=== PATIENT | male | born 1995 | race African-American/Black ===

== ENCOUNTER 2024-01-21 11:46 | Emergency (ER) | payer MEDICAID, SELFPAY ==
[2024-01-21] VITALS (10 sets, daily range): BP systolic 76–136; BP diastolic 54–92; PULSE 70–106; RESP 16–20; TEMP 36.7–36.8; O2SAT 90–95; BMI 23.7
--- NOTE | 2024-01-21 11:44 | ECG_ITS ---
APPROVED REPORT Exam: Resting ECG HR:89 bpm ECG Measurements Heart Rate 89 AXES UT 153 P 67 QRSd 85 QRS 81 QT 365 T 60 QTc 412 Conclusion SINUS RHYTHM WITH SINUS ARRHYTHMIA NORMAL ECG UNCONFIRMED REPORT Electronically signed by : Duglas Treviño, 01/21/2024 14:58:23
--- NOTE | 2024-01-21 12:12 | XR_ITS ---
PROCEDURE INFORMATION: Exam: XR Chest Exam date and time: 01/21/2024 12:25 PM Age: 28 years old Clinical indication: Pain; Chest pressure; Additional info: Chest pain TECHNIQUE: Imaging protocol: Radiologic exam of the chest. Views: 2 views. COMPARISON: No relevant prior studies available. FINDINGS: Lungs: Asymmetric prominence of the right hilum. No focal consolidation. Pleural spaces: Unremarkable. No pleural effusion. No pneumothorax. Heart/Mediastinum: Unremarkable. No cardiomegaly. Bones/joints: Unremarkable. IMPRESSION: Asymmetric prominence of the right hilum. Additional workup recommended with enhanced CT.
[2024-01-21 12:24] LABS: Basophils # 0.2 K/mm3 (0-0.2); Basophils % 1.4 % (0.1-2.0); Eosinophils # 0.4 K/mm3 (0.0-0.4); Eosinophils % 2.8 % (0.1-12.0); Hemoglobin 7.7 g/dL (14.1-18.0); Lymphocytes # 5.2 K/mm3 (0.7-4.5); Lymphocytes % 37.2 % (10-50); Mean Corpuscular HGB Conc 36.7 g/dL (31.8-35.4); Mean Corpuscular Hemoglobin 30.8 pg (27.0-31.2); Mean Corpuscular Volume 83.8 fl (80-94); Mean Platelet Volume 7.7 fl (7.4-10.4); Monocytes % 7.1 % (1.7-9.3); Neutrophils # 7.2 K/mm3 (1.8-7.8); Neutrophils % 51.5 % (37.0-80.0); Platelet Count 317 K/mm3 (142-424); Red Blood Count 2.51 M/mm3 (4.60-6.20); Red Cell Distribution Width 24.1 % (11.5-17.5)
[2024-01-21] MEDS: diphenhydrAMINE 50MG/ML VIAL 50 MG IV (12:26)
[2024-01-21] MEDS: HYDROMORPHONE 2MG/ML SYRINGE 1 MG IV ×3 (12:27→15:15)
[2024-01-21 12:28] LABS: Alanine Aminotransferase 46 U/L (12-78); Albumin Level 4.6 g/dl (3.5-5.0); Albumin/Globulin Ratio 0.9 (1.1-1.8); Alkaline Phosphatase 97 U/L (38-126); Anion Gap 12.4 mEq/L (5-15); Aspartate Amino Transferase 168 U/L (17-59); Bilirubin,Total 4.9 mg/dl (0.2-1.3); Blood Urea Nitrogen 11 mg/dl (9-20); Calcium 8.5 mg/dl (8.4-10.2); Carbon Dioxide 26 mmol/L (22.0-30.0); Chloride 108 mmol/L (98-107); Creatinine Clearance Estimated 170 mL/min (50-200); Estimated Glomerular Filt Rate 133 ml/min (>60); GFR (African American) 161 ML/MIN (>60); Globulin 5.2 g/dL (1.3-3.2); Glucose 100 mg/dl (74-100); Potassium 4.4 mmoL/L (3.5-5.1); Sodium 142 mmol/L (136-145); Total Protein,Serum 9.8 g/dl (6.3-8.2)
[2024-01-21 12:29] LABS: INR 1.02 (0.9-1.1); Prothrombin Time 11.4 seconds (10.1-12.5)
--- NOTE | 2024-01-21 12:30 | PC.NURSE ---
CRITICAL HCT 21.0, RECEIVED FROM [facility] IN LAB.PT NAME AND R/V. DR COWAN NOTIFIED
[2024-01-21 12:34] LABS: Lactate Dehydrogenase 1666 U/L (313-618)
--- NOTE | 2024-01-21 12:34 | PC.NURSE ---
PT TO XR
--- NOTE | 2024-01-21 12:41 | PC.NURSE ---
PT RETURNED FROM XR
[2024-01-21 13:06] LABS: HIV (1&2) Antibody Rapid NONREACTIVE (NONREACTIVE)
[2024-01-21 13:13] LABS: Troponin I 0.04 ng/ml (0.00-0.034)
--- NOTE | 2024-01-21 13:19 | HMH.EDGENADL ---
Discharge Plan Disposition Chief Complaint: Chest Pain Referrals Follow up/Referrals: Provider,Referral, [Primary Care Provider] - See instructions Clinical Impressions Clinical Impression: Chest pain Print Language Print Language: Malaysian Discharge ED Provider: Duglas Treviño General Adult HPI General Chief complaint: Chest Pain Stated complaint: Chest pain Time Seen by Provider: 01/21/24 12:16 Mode of Arrival: Ambulatory Source of Information: Patient Limitations: No Limitations Description of Symptoms (Recalled from ER Triage Doc. by RN): Patient reports history of sickle cell and that he thinks he is in a flare up. States he usually gets blood infusions and he hasn't had one in a while. Complaint of chest and back pain. History of Present Illness HPI narrative: This is a 28-year-old male with a past medical history of sickle cell disease who presents with chest pain. States that he just recently moved to the area at the beginning of this month and has not established with a PCP yet. States that he would typically get transfusions every 4 weeks, however his last blood transfusion was in October. Has been taking hydroxyurea, deferoxamine, and Eliquis as prescribed. States that he began to have chest pain last night with associated nausea and vomiting and dizziness. Denies shortness of breath. Denies fever. Related Data Allergies Allergy/AdvReac Type Severity Reaction Status Date / Time morphine Allergy Unknown Verified 01/21/24 12:04 allergy reaction [facility] Disclaimer: The information contained in this section may have been updated after the patient was seen, as this information can be updated by other users. Social History Smoking Status: Current every day smoker alcohol intake: former current occupational status: other Travel in the last 8 weeks: None ROS Obtained: Yes All systems reviewed & no additional complaints except as documented Physical Exam General General appearance: alert Comment: Appears uncomfortable Eye Eye exam: Present normal appearance, PERRL and EOMI Respiratory Respiratory exam: Present normal lung sounds bilaterally; Absent respiratory distress Cardiovascular Cardiovascular exam: Present regular rate and normal rhythm Abdominal Exam Abdominal exam: Present soft and distention; Absent tenderness, guarding or rebound Extremities Exam Extremities exam: Present normal inspection Neurological Exam Neurological exam: Present alert and oriented X3 Skin Skin exam: Present warm and dry Medical Decision Making Medical Records Medical records reviewed: Yes I reviewed the patient's medical records. Screening: Per USPSTF and CDC recommendations, given the prevalence of disease in our region, it is our hospital?s policy to screen for HIV and viral Hepatitis for all patients aged 18 and over and those with ongoing risk factors. Mir Inquiry Pt receiving controlled substance: No Vital Signs: 01/21/24 12:05 01/21/24 12:15 01/21/24 12:31 Temperature 98.0 F Temperature Source Oral Pulse Rate 82 81 Pulse Rate [Radial] 85 Respiratory Rate 16 18 Blood Pressure 123/85 100/67 L Blood Pressure [Right Arm] 123/85 Blood Pressure Mean 78 Blood Pressure Mean [Right Arm] 97 Blood Pressure Source [Right Arm] Automatic Cuff Blood Pressure Position [Right Arm] Sitting 02 Sat by Pulse Oximetry 95 91 L 90 L Oxygen Delivery Method Room Air Room Air Oxygen Flow Rate (LPM) 01/21/24 13:01 01/21/24 13:15 Temperature Temperature Source Pulse Rate 84 70 Pulse Rate [Radial] Respiratory Rate 18 Blood Pressure 89/68 L 89/68 L Blood Pressure [Right Arm] Blood Pressure Mean 73 Blood Pressure Mean [Right Arm] Blood Pressure Source [Right Arm] Blood Pressure Position [Right Arm] 02 Sat by Pulse Oximetry 92 L 92 L Oxygen Delivery Method Nasal Cannula Oxygen Flow Rate (LPM) 2 Lab Data Lab Results 01/21/24 11:49: WBC 14.0 H, RBC 2.51 L, Hgb 7.7 L, Hct 21.0 L, MCV 83.8, MCH 30.8, MCHC 36.7 H, RDW 24.1 H, Plt Count 317, MPV 7.7, Neut % (Auto) 51.5, Lymph % (Auto) 37.2, Bledsoe % (Auto) 7.1, Eos % (Auto) 2.8, Baso % (Auto) 1.4, Neut # (Auto) 7.2, Lymph # (Auto) 5.2 H, Bledsoe # (Auto) 1.0, Eos # (Auto) 0.4, Baso # (Auto) 0.2, PT 11.4, INR 1.02, Sodium 142, Potassium 4.4, Chloride 108 H, Carbon Dioxide 26, Anion Gap 12.4, BUN 11, Creatinine 0.70, Estimated Creat Clear 170, Estimated GFR 133, Est GFR ( Amer) 161, Glucose 100, Calcium 8.5, Total Bilirubin 4.9 H, AST 168 H, ALT 46, Alkaline Phosphatase 97, Lactate Dehydrogenase 1666 H, Troponin I 0.04 H, Total Protein 9.8 H, Albumin 4.6, Globulin 5.2 H, Albumin/Globulin Ratio 0.9 L, HIV 1&2 Antibody Rapid Nonreactive 01/21/24 12:23: Blood Type O Positive, Antibody Screen Negative 01/21/24 11:49 01/21/24 11:49 Orders (Tests/Meds): ED MEDICATIONS Generic Name Dose Route Start Last Admin Trade Name Freq PRN Reason Stop Dose Admin Lactated Ringer's 1,000 mls @ 999 mls/hr 01/21/24 14:38 Lactated Ringer's 1000 Ml Bag IV 01/21/24 15:38 .[id number] ONE Discontinued Medications Generic Name Dose Route Start Last Admin Trade Name Freq PRN Reason Stop Dose Admin Diphenhydramine HCl 50 mg 01/21/24 12:12 01/21/24 12:26 Diphenhydramine 50mg/Ml Vial IV 01/21/24 12:13 50 mg ONCE ONE Administration Diphenhydramine HCl 25 mg 01/21/24 13:56 01/21/24 14:07 Diphenhydramine 50mg/Ml Vial IV 01/21/24 13:57 25 mg ONCE ONE Administration Hydromorphone HCl 1 mg 01/21/24 12:12 01/21/24 12:27 Hydromorphone 2mg/Ml Syringe IV 01/21/24 12:13 1 mg ONCE ONE Administration Hydromorphone HCl 1 mg 01/21/24 13:56 01/21/24 14:07 Hydromorphone 2mg/Ml Syringe IV 01/21/24 13:57 1 mg ONCE ONE Administration ORDERS Category Date Time Status Type and Screen Stat BBK 01/21/24 12:23 Completed XR chest 2V Stat Exams 01/21/24 12:12 Completed Complete Blood Count Auto Diff Stat Lab 01/21/24 11:49 Completed Comprehensive Metabolic Panel Stat Lab 01/21/24 11:49 Completed HIV (1&2) Antibody Rapid Stat Lab 01/21/24 11:49 Completed Haptoglobin Stat Lab 01/21/24 12:29 Received Hep C Ab with Reflex to RNA Stat Lab 01/21/24 11:49 Received Lactate Dehydrogenase Stat Lab 01/21/24 11:49 Completed Prothrombin Time INR Stat Lab 01/21/24 11:49 Completed Troponin I Q3H Lab 01/21/24 16:00 Ordered Troponin I Q3H Lab 01/21/24 19:00 Ordered Troponin I Stat Lab 01/21/24 11:49 Completed ECG Data Tracing #1: I reviewed this ECG and interpreted as documented below: Sinus rhythm at a rate of 89 with sinus arrhythmia, normal axis, QTc 412, no STEMI Medical Decision Narrative: In summary, this 28-year-old male with a past medical history of sickle cell disease presents to the emergency department today with chest pain. On initial evaluation patient is normotensive, nontachycardic, afebrile, satting 95% on room air. Differential diagnosis includes but is not limited to acute chest syndrome, pneumonia, sickle cell pain crisis, ACS. Based on these concerns, I ordered CBC, CMP, LDH, haptoglobin, type and screen, troponin, chest x-ray. ECG personally interpreted as noted above. Patient received Dilaudid and Benadryl for treatment. Labs personally reviewed demonstrate leukocytosis with a white blood cell count of 14, anemia with a hemoglobin of 7.7, INR of 1.02, total bilirubin of 4.9, AST 168, LDH of 1666, mildly elevated troponin at 0.04,. XR personally interpreted demonstrates no acute cardiopulmonary pathology. On reassessment patient remains in a significant amount of pain. Administered 1 L of lactated Ringer's, Dilaudid, and Benadryl again. Discussed with hospitalist regarding admission, however given his elevated troponin and concern for potential thrombotic event, recommended transfer to a center with hematologists and the capabilities for exchange transfusions. Discussed with and patient was ultimately accepted as a transfer to [facility] under Dr. Greer. At the time of transfer, patient normotensive, satting 92% on 2 L nasal cannula. Critical Care Critical Care Time Critical Care Time: No
--- NOTE | 2024-01-21 13:59 | PC.NURSE ---
DR COWAN SPEAKING WITH HOSPITALIST FOR ADMISSION
[2024-01-21] MEDS: diphenhydrAMINE 50MG/ML VIAL 25 MG IV (14:07)
--- NOTE | 2024-01-21 14:07 | PC.NURSE ---
Called per Dr. Treviño for a poss transfer, stated that they would give us a call back.
--- NOTE | 2024-01-21 14:08 | PC.NURSE ---
Called [facility] to [employer] [facility] [employer].
--- NOTE | 2024-01-21 14:33 | PC.NURSE ---
DR COWAN SPEAKING WITH [facility]
--- NOTE | 2024-01-21 14:41 | PC.NURSE ---
dr newman at bedside to update pt on poc
[2024-01-21] MEDS: LACTATED RINGERS 1000ML 1,000 ML 999 ML IV (15:17)
[2024-01-21 15:31] LABS: Troponin I 0.04 ng/ml (0.00-0.034)
--- NOTE | 2024-01-21 15:54 | PC.NURSE ---
called report to jemima coughlin rn and called [facility] em[facility] for transfer
[2024-01-23 13:25] LABS: Haptoglobin <10 mg/dL (17-317)
[2024-01-25 23:08] LABS: HCV Ab Reactive (Non Reactive)
== END 2024-01-21 16:29 | disposition short-term general hospital (02) ==
PROVIDERS: Emergency Provider Student in an Organized Health Care Education/Training Program
DX: R07.9 Chest pain, unspecified (principal); M54.9 Dorsalgia, unspecified; R11.2 Nausea with vomiting, unspecified; R42 Dizziness and giddiness
CPT/HCPCS: 71046; 80053; 83010; 83615; 84484; 85025; 85610; 86803; 86850; 87389; 93005; 96361; 96374; 96375; 99284; J1171; J1200; J7120

== ENCOUNTER 2024-04-25 13:30 | Emergency (ER) | payer OTHER, SELFPAY ==
[2024-04-25] VITALS (12 sets, daily range): BP systolic 93–128; BP diastolic 53–88; PULSE 77–114; RESP 18–20; TEMP 37.1–37.3; O2SAT 97–100; BMI 23.0
--- NOTE | 2024-04-25 13:29 | ED_ITS ---
<Statement entered by La Nena Driscoll DO - 04/25/24 15:56> I was consulted by the [facility], and we discussed the complexity of the problems being addressed. I approved the treatment and management plan for this patient's care in the emergency department, thus performing a substantive portion of the medical decision making. Care signed out to oncoming provider Dr. Larson at my departure. La Nena Driscoll DO Discharge Plan Disposition Patient Disposition: Xfer Short-Term Hosp Condition: Serious Prescriptions Prescriptions: No Action hydroxyurea 500 mg capsule 500 mg PO DAILY amlodipine 10 mg tablet 10 mg PO DAILY pantoprazole 40 mg tablet,delayed release (DR/EC) 40 mg PO DAILY oxycodone 20 mg tablet 30 mg PO QID Eliquis 5 mg tablet 5 mg PO DAILY Referrals Follow up/Referrals: Provider,Referral, MD [Primary Care Provider] - See instructions Clinical Impressions Clinical Impression: Sepsis without septic shock, Abscess of epididymis or testis Stand Alone Forms Stand Alone Forms: Transfer Record - ED Print Language Print Language: Fijian Discharge ED Provider: La Nena Driscoll General Adult HPI <JAMAL Fragoso - Last Filed: 04/25/24 16:06> General Chief complaint: PAIN Stated complaint: Pain; Sickle Cell Disease Time Seen by Provider: 04/25/24 13:28 History of Present Illness HPI narrative: Patient presents for evaluation of right testicular pain. Patient has a longstanding history of sickle cell disease and actually just got out of the hospital with [facility] approximately 7 days ago. He began having right testicular pain since Tuesday. He thought it was part of his sickle cell crisis but it is continued to progress and his not responding to his normal home sickle regimen. He called his sickle cell support operator at the [facility] and they told him to return to . However EMS was unable to take him directly there due to ambulance availability and so he arrived here instead. Patient denies any fever chills chest pain shortness of breath hemoptysis hematochezia melena. He has never had testicular pain before. Related Data Home Medications ?Medication ?Instructions ?Recorded ?Confirmed amlodipine 10 mg tablet 10 mg PO DAILY 04/25/24 04/25/24 apixaban 5 mg tablet (Eliquis) 5 mg PO DAILY 04/25/24 04/25/24 hydroxyurea 500 mg capsule 500 mg PO DAILY 04/25/24 04/25/24 oxycodone 20 mg tablet 30 mg PO QID 04/25/24 04/25/24 pantoprazole 40 mg tablet,delayed 40 mg PO DAILY 04/25/24 04/25/24 release Allergies Allergy/AdvReac Type Severity Reaction Status Date / Time morphine Allergy Unknown Verified 01/21/24 12:04 allergy reaction PFSH <JAMAL Fragoso - Last Filed: 04/25/24 16:06> [facility] Disclaimer: The information contained in this section may have been updated after the patient was seen, as this information can be updated by other users. Social History (Updated 01/21/24 @ 14:44 by Duglas Treviño MD) Smoking Status: Current every day smoker alcohol intake: former current occupational status: other Travel in the last 8 weeks: None <JAMAL Fragoso - Last Filed: 04/25/24 16:06> ROS Obtained: Yes Systems reviewed as appropriate & no additional complaints except as documented Physical Exam <JAMAL Fragoso - Last Filed: 04/25/24 16:06> General General appearance: alert and in no apparent distress Respiratory Respiratory exam: Present normal lung sounds bilaterally Cardiovascular Cardiovascular exam: Present regular rate Neurological Exam Neurological exam: Present alert and oriented X3 Medical Decision Making <JAMAL Fragoso - Last Filed: 04/25/24 16:06> Medical Records Medical records reviewed: Yes I reviewed the patient's medical records. Screening: Per USPSTF and CDC recommendations, given the prevalence of disease in our region, it is our hospital?s policy to screen for HIV and viral Hepatitis for all patients aged 18 and over and those with ongoing risk factors. Mir Inquiry Pt receiving controlled substance: No Vital Signs: 04/25/24 13:27 04/25/24 13:52 04/25/24 14:00 Temperature Temperature Source Pulse Rate 91 H 87 Pulse Rate [Radial] 114 H Respiratory Rate 20 Blood Pressure 117/79 117/70 Blood Pressure [Right Arm] 126/88 Blood Pressure Mean 88 87 Blood Pressure Mean [Right Arm] 100 Blood Pressure Source [Right Arm] Automatic Cuff Blood Pressure Position [Right Arm] Supine 02 Sat by Pulse Oximetry 98 100 100 Oxygen Delivery Method Room Air Room Air Room Air 04/25/24 14:21 04/25/24 15:55 04/25/24 16:01 Temperature 98.7 F Temperature Source Oral Pulse Rate 92 H 84 Pulse Rate [Radial] Respiratory Rate Blood Pressure 128/79 96/59 L Blood Pressure [Right Arm] Blood Pressure Mean 83 Blood Pressure Mean [Right Arm] Blood Pressure Source [Right Arm] Blood Pressure Position [Right Arm] 02 Sat by Pulse Oximetry 100 97 Oxygen Delivery Method Room Air Room Air 04/25/24 16:30 04/25/24 17:00 04/25/24 18:00 Temperature Temperature Source Pulse Rate 81 81 81 Pulse Rate [Radial] Respiratory Rate Blood Pressure 100/65 L 96/61 L 93/53 L Blood Pressure [Right Arm] Blood Pressure Mean Blood Pressure Mean [Right Arm] Blood Pressure Source [Right Arm] Blood Pressure Position [Right Arm] 02 Sat by Pulse Oximetry 100 99 100 Oxygen Delivery Method Room Air Room Air Room Air 04/25/24 18:30 Temperature Temperature Source Pulse Rate 82 Pulse Rate [Radial] Respiratory Rate Blood Pressure 112/71 Blood Pressure [Right Arm] Blood Pressure Mean Blood Pressure Mean [Right Arm] Blood Pressure Source [Right Arm] Blood Pressure Position [Right Arm] 02 Sat by Pulse Oximetry 99 Oxygen Delivery Method Room Air Lab Data Lab results reviewed: Yes I reviewed the patient's lab results. Lab Results 04/25/24 13:34: WBC 25.7 H*, RBC 3.15 L, Hgb 9.4 L, Hct 28.6 L, MCV 90.8, MCH 29.8, MCHC 32.9, RDW 17.2, Plt Count 732 H, MPV 9.0, Neut % (Auto) 80.9 H, Lymph % (Auto) 10.1, Leon % (Auto) 7.4, Eos % (Auto) 0.6, Baso % (Auto) 0.5, Neut # (Auto) 20.8 H, Lymph # (Auto) 2.6, Leon # (Auto) 1.9 H, Eos # (Auto) 0.2, Baso # (Auto) 0.1, Total Counted 100, Neutrophils % (Manual) 84 H, Lymphocytes % (Manual) 8 L, Monocytes % (Manual) 8, Platelet Estimate Marked increase, RBC Morphology Normal, ESR 60 H, Retic Count (auto) 3.1, PT 10.9, INR 0.99, D-Dimer 1.02 H, Sodium 138, Potassium 4.6, Chloride 103, Carbon Dioxide 26, Anion Gap 13.6, BUN 14, Creatinine 0.70, Estimated Creat Clear 170, Estimated GFR 133, Est GFR ( Amer) 161, Glucose 107 H, Calcium 9.0, Magnesium 1.8, Total Bilirubin 2.0 H, AST 79 H, ALT 42, Alkaline Phosphatase 127 H, Lactate Dehydrogenase 586, Troponin I 0.03, C-Reactive Protein 71.8 H, Total Protein 10.6 H, Albumin 4.5, Globulin 6.1 H, Albumin/Globulin Ratio 0.7 L 04/25/24 13:53: Blood Type O Positive, Antibody Screen Negative 04/25/24 13:34 04/25/24 13:34 Orders (Tests/Meds): ED MEDICATIONS Generic Name Dose Route Start Last Admin Trade Name Freq PRN Reason Stop Dose Admin Piperacillin Sod/Tazobactam 50 mls @ 100 mls/hr 04/25/24 14:30 04/25/24 14:43 Sod 3.375 gm/ Sodium Chloride IV 05/05/24 14:29 100 mls/hr Q6H TORRES Administration Discontinued Medications Generic Name Dose Route Start Last Admin Trade Name Freq PRN Reason Stop Dose Admin Acetaminophen 1,000 mg 04/25/24 13:35 04/25/24 13:47 Acetaminophen 1,000mg/100ml Vial IV 04/25/24 13:36 1,000 mg ONCE ONE Administration Azithromycin 500 mg 04/25/24 16:01 04/25/24 16:02 Azithromycin 250mg Tablet PO 04/25/24 16:02 500 mg ONCE ONE Administration Diphenhydramine HCl 50 mg 04/25/24 13:46 04/25/24 13:48 Diphenhydramine 50mg/Ml Vial IV 04/25/24 13:47 50 mg ONCE ONE Administration Diphenhydramine HCl 25 mg 04/25/24 15:54 04/25/24 15:58 Diphenhydramine 50mg/Ml Vial IV 04/25/24 15:55 25 mg ONCE ONE Administration Hydromorphone HCl 2 mg 04/25/24 13:35 04/25/24 13:48 Hydromorphone 2mg/Ml Syringe IV 04/25/24 13:36 2 mg ONCE ONE Administration Hydromorphone HCl 1 mg 04/25/24 14:23 04/25/24 14:32 Hydromorphone 2mg/Ml Syringe IV 04/25/24 14:24 1 mg ONCE ONE Administration Hydromorphone HCl 1 mg 04/25/24 15:09 04/25/24 15:16 Hydromorphone 2mg/Ml Syringe IV 04/25/24 15:10 1 mg ONCE ONE Administration Hydromorphone HCl 2 mg 04/25/24 16:18 04/25/24 16:31 Hydromorphone 2mg/Ml Syringe IV 04/25/24 16:19 2 mg ONCE ONE Administration Hydromorphone HCl 1 mg 04/25/24 18:22 04/25/24 18:31 Hydromorphone 2mg/Ml Syringe IV 04/25/24 18:23 1 mg ONCE ONE Administration Vancomycin/PEG/NADA/Lysine/Water 1.5 gm in 300 mls @ 150 mls/hr 04/25/24 14:30 04/25/24 16:02 Vancomycin 1.5gm/300ml (Peg) Premix IV 04/25/24 16:29 150 mls/hr ONCE ONE Administration Azithromycin 500 mg/ Sodium 250 mls @ 250 mls/hr 04/25/24 15:45 04/25/24 16:09 Chloride IV 04/25/24 15:46 Not Given ONCE ONE Miscellaneous 1 each 04/25/24 14:30 Vancomycin Consult Request NOTAPPLIC 05/25/24 14:29 [facility] Ondansetron HCl 4 mg 04/25/24 13:42 04/25/24 13:47 Ondansetron 4mg/2ml Vial IV 04/25/24 13:43 4 mg ONCE ONE Administration ORDERS Category Date Time Status Type and Screen Stat BBK 04/25/24 13:53 Completed CXR --portable [XR chest portable] Stat Exams 04/25/24 13:42 Completed CBC w/Auto Diff [Complete Blood Count Auto Diff] Stat Lab 04/25/24 13:34 Completed CMP [Comprehensive Metabolic Panel] Stat Lab 04/25/24 13:34 Completed CRP [C-Reactive Protein] Stat Lab 04/25/24 13:34 Completed D-Dimer Stat Lab 04/25/24 13:34 Completed ESR [Erythrocyte Sedimentation Rate] Stat Lab 04/25/24 13:34 Completed INR [Prothrombin Time INR] Stat Lab 04/25/24 13:34 Completed LDH [Lactate Dehydrogenase] Stat Lab 04/25/24 13:34 Completed Magnesium Stat Lab 04/25/24 13:34 Results Procalcitonin Stat Lab 04/25/24 13:34 Results Reticulocyte % (Auto) Stat Lab 04/25/24 13:34 Completed Trop I [Troponin I] Stat Lab 04/25/24 13:34 Completed Troponin I Q3H Lab 04/25/24 19:45 Ordered UA [Urinalysis and Microscopic] Stat Lab 04/25/24 13:40 Ordered Urine Chlam/Gono/Trich, PREMA Stat Lab 04/25/24 13:40 Ordered Blood Culture Stat Micro 04/25/24 14:20 Received Urine Culture Stat Micro 04/25/24 13:43 Ordered scrotum US [US Testicular] Stat Ultrasound 04/25/24 13:41 Completed Tissue Perfus/Sepsis Re-Eval Sepsis Re-Evaluation Performed: Yes Date Performed: 04/25/24 Time Performed: 16:06 Medical Decision Narrative: In summary patient is a 28-year-old male who presents to the emergency department for evaluation of right testicle pain. Patient is normotensive at 126/88 tachycardic at 114 breathing 20 times a minute satting at 98% on room air currently upon arrival, the temperature of 98.7. Physical exam is remarkable for exquisite right testicular pain and an enlarged testicular complex however there is no scrotal edema or induration. The testicle was not fixed and I do not feel any palpable fluctuance. The remainder of the exam is unremarkable nonfocal including clear breath sounds patient's [place] Coma Score 15 sinus tachycardia the bedside monitor. Differential diagnosis includes sickle cell crisis with vasospasm versus testicular torsion versus testicular abscess etc. Initial workup will be conducted with hematologic labs plain film chest x-ray blood cultures urinalysis testicular ultrasound. Initial interventions include Toradol Tylenol Dilaudid. Patient is on oxycodone 34 times a day at baseline. Crystalloid bolus was considered however patient currently is hemodynamically stable and at the risk of volume overload deferred for now. Initial workup reviewed by me and my informal interpretation of his imaging shows normal size testicles however significant epididymitis orchitis on the right however there is blood flow to the testicle. Laboratory investigation showed that his white count is 25.7 with an absolute neutrophil count of 20.8 reticulocyte count of 3.1 a troponin of 0.03 CRP of 71.8. Reassessment 1425 and patient's pain is come down from a 10 out of 10 to 8 out of 10 and he remains hemodynamically stable and afebrile. Given the findings I had an interactive discussion with the [facility] transfer center Dr. Tran regarding patient NGUYEN findings and patient management and he involved Dr. Andrea of urology as well and decision is made to transfer the patient to [facility] emergency department for further evaluation and care. Patient received a dose of Vanco Zosyn and azithromycin empirically blood cultures were sent patient has received a total of of 4 mg total of Dilaudid as well as 75 mg total of Benadryl prior to transfer <Diomedes Larson MD - Last Filed: 04/25/24 18:44> Vital Signs: 04/25/24 13:27 04/25/24 13:52 04/25/24 14:00 Temperature Temperature Source Pulse Rate 91 H 87 Pulse Rate [Radial] 114 H Respiratory Rate 20 Blood Pressure 117/79 117/70 Blood Pressure [Right Arm] 126/88 Blood Pressure Mean 88 87 Blood Pressure Mean [Right Arm] 100 Blood Pressure Source [Right Arm] Automatic Cuff Blood Pressure Position [Right Arm] Supine 02 Sat by Pulse Oximetry 98 100 100 Oxygen Delivery Method Room Air Room Air Room Air 04/25/24 14:21 04/25/24 15:55 04/25/24 16:01 Temperature 98.7 F Temperature Source Oral Pulse Rate 92 H 84 Pulse Rate [Radial] Respiratory Rate Blood Pressure 128/79 96/59 L Blood Pressure [Right Arm] Blood Pressure Mean 83 Blood Pressure Mean [Right Arm] Blood Pressure Source [Right Arm] Blood Pressure Position [Right Arm] 02 Sat by Pulse Oximetry 100 97 Oxygen Delivery Method Room Air Room Air 04/25/24 16:30 04/25/24 17:00 04/25/24 18:00 Temperature Temperature Source Pulse Rate 81 81 81 Pulse Rate [Radial] Respiratory Rate Blood Pressure 100/65 L 96/61 L 93/53 L Blood Pressure [Right Arm] Blood Pressure Mean Blood Pressure Mean [Right Arm] Blood Pressure Source [Right Arm] Blood Pressure Position [Right Arm] 02 Sat by Pulse Oximetry 100 99 100 Oxygen Delivery Method Room Air Room Air Room Air 04/25/24 18:30 Temperature Temperature Source Pulse Rate 82 Pulse Rate [Radial] Respiratory Rate Blood Pressure 112/71 Blood Pressure [Right Arm] Blood Pressure Mean Blood Pressure Mean [Right Arm] Blood Pressure Source [Right Arm] Blood Pressure Position [Right Arm] 02 Sat by Pulse Oximetry 99 Oxygen Delivery Method Room Air Lab Data Lab Results 04/25/24 13:34: WBC 25.7 H*, RBC 3.15 L, Hgb 9.4 L, Hct 28.6 L, MCV 90.8, MCH 29.8, MCHC 32.9, RDW 17.2, Plt Count 732 H, MPV 9.0, Neut % (Auto) 80.9 H, Lymph % (Auto) 10.1, Leon % (Auto) 7.4, Eos % (Auto) 0.6, Baso % (Auto) 0.5, Neut # (Auto) 20.8 H, Lymph # (Auto) 2.6, Leon # (Auto) 1.9 H, Eos # (Auto) 0.2, Baso # (Auto) 0.1, Total Counted 100, Neutrophils % (Manual) 84 H, Lymphocytes % (Manual) 8 L, Monocytes % (Manual) 8, Platelet Estimate Marked increase, RBC Morphology Normal, ESR 60 H, Retic Count (auto) 3.1, PT 10.9, INR 0.99, D-Dimer 1.02 H, Sodium 138, Potassium 4.6, Chloride 103, Carbon Dioxide 26, Anion Gap 13.6, BUN 14, Creatinine 0.70, Estimated Creat Clear 170, Estimated GFR 133, Est GFR ( Amer) 161, Glucose 107 H, Calcium 9.0, Magnesium 1.8, Total Bilirubin 2.0 H, AST 79 H, ALT 42, Alkaline Phosphatase 127 H, Lactate Dehydrogenase 586, Troponin I 0.03, C-Reactive Protein 71.8 H, Total Protein 10.6 H, Albumin 4.5, Globulin 6.1 H, Albumin/Globulin Ratio 0.7 L 04/25/24 13:53: Blood Type O Positive, Antibody Screen Negative Orders (Tests/Meds): ED MEDICATIONS Generic Name Dose Route Start Last Admin Trade Name Freq PRN Reason Stop Dose Admin Piperacillin Sod/Tazobactam 50 mls @ 100 mls/hr 04/25/24 14:30 04/25/24 14:43 Sod 3.375 gm/ Sodium Chloride IV 05/05/24 14:29 100 mls/hr Q6H TORRES Administration Discontinued Medications Generic Name Dose Route Start Last Admin Trade Name Yvonne PRN Reason Stop Dose Admin Acetaminophen 1,000 mg 04/25/24 13:35 04/25/24 13:47 Acetaminophen 1,000mg/100ml Vial IV 04/25/24 13:36 1,000 mg ONCE ONE Administration Azithromycin 500 mg 04/25/24 16:01 04/25/24 16:02 Azithromycin 250mg Tablet PO 04/25/24 16:02 500 mg ONCE ONE Administration Diphenhydramine HCl 50 mg 04/25/24 13:46 04/25/24 13:48 Diphenhydramine 50mg/Ml Vial IV 04/25/24 13:47 50 mg ONCE ONE Administration Diphenhydramine HCl 25 mg 04/25/24 15:54 04/25/24 15:58 Diphenhydramine 50mg/Ml Vial IV 04/25/24 15:55 25 mg ONCE ONE Administration Hydromorphone HCl 2 mg 04/25/24 13:35 04/25/24 13:48 Hydromorphone 2mg/Ml Syringe IV 04/25/24 13:36 2 mg ONCE ONE Administration Hydromorphone HCl 1 mg 04/25/24 14:23 04/25/24 14:32 Hydromorphone 2mg/Ml Syringe IV 04/25/24 14:24 1 mg ONCE ONE Administration Hydromorphone HCl 1 mg 04/25/24 15:09 04/25/24 15:16 Hydromorphone 2mg/Ml Syringe IV 04/25/24 15:10 1 mg ONCE ONE Administration Hydromorphone HCl 2 mg 04/25/24 16:18 04/25/24 16:31 Hydromorphone 2mg/Ml Syringe IV 04/25/24 16:19 2 mg ONCE ONE Administration Hydromorphone HCl 1 mg 04/25/24 18:22 04/25/24 18:31 Hydromorphone 2mg/Ml Syringe IV 04/25/24 18:23 1 mg ONCE ONE Administration Vancomycin/PEG/NADA/Lysine/Water 1.5 gm in 300 mls @ 150 mls/hr 04/25/24 14:30 04/25/24 16:02 Vancomycin 1.5gm/300ml (Peg) Premix IV 04/25/24 16:29 150 mls/hr ONCE ONE Administration Azithromycin 500 mg/ Sodium 250 mls @ 250 mls/hr 04/25/24 15:45 04/25/24 16:09 Chloride IV 04/25/24 15:46 Not Given ONCE ONE Miscellaneous 1 each 04/25/24 14:30 Vancomycin Consult Request NOTAPPLIC 05/25/24 14:29 [facility] Ondansetron HCl 4 mg 04/25/24 13:42 04/25/24 13:47 Ondansetron 4mg/2ml Vial IV 04/25/24 13:43 4 mg ONCE ONE Administration ORDERS Category Date Time Status Type and Screen Stat BBK 04/25/24 13:53 Completed CXR --portable [XR chest portable] Stat Exams 04/25/24 13:42 Completed CBC w/Auto Diff [Complete Blood Count Auto Diff] Stat Lab 04/25/24 13:34 Completed CMP [Comprehensive Metabolic Panel] Stat Lab 04/25/24 13:34 Completed CRP [C-Reactive Protein] Stat Lab 04/25/24 13:34 Completed D-Dimer Stat Lab 04/25/24 13:34 Completed ESR [Erythrocyte Sedimentation Rate] Stat Lab 04/25/24 13:34 Completed INR [Prothrombin Time INR] Stat Lab 04/25/24 13:34 Completed LDH [Lactate Dehydrogenase] Stat Lab 04/25/24 13:34 Completed Magnesium Stat Lab 04/25/24 13:34 Results Procalcitonin Stat Lab 04/25/24 13:34 Results Reticulocyte % (Auto) Stat Lab 04/25/24 13:34 Completed Trop I [Troponin I] Stat Lab 04/25/24 13:34 Completed Troponin I Q3H Lab 04/25/24 19:45 Ordered UA [Urinalysis and Microscopic] Stat Lab 04/25/24 13:40 Ordered Urine Chlam/Gono/Trich, PREMA Stat Lab 04/25/24 13:40 Ordered Blood Culture Stat Micro 04/25/24 14:20 Received Urine Culture Stat Micro 04/25/24 13:43 Ordered scrotum US [US Testicular] Stat Ultrasound 04/25/24 13:41 Completed Medical Decision Narrative: In summary patient is a 28-year-old male who presents to the emergency department for evaluation of right testicle pain. Patient is normotensive at 126/88 tachycardic at 114 breathing 20 times a minute satting at 98% on room air currently upon arrival, the temperature of 98.7. Physical exam is remarkable for exquisite right testicular pain and an enlarged testicular complex however there is no scrotal edema or induration. The testicle was not fixed and I do not feel any palpable fluctuance. The remainder of the exam is unremarkable nonfocal including clear breath sounds patient's [place] Coma Score 15 sinus tachycardia the bedside monitor. Differential diagnosis includes sickle cell crisis with vasospasm versus testicular torsion versus testicular abscess etc. Initial workup will be conducted with hematologic labs plain film chest x-ray blood cultures urinalysis testicular ultrasound. Initial interventions include Toradol Tylenol Dilaudid. Patient is on oxycodone 34 times a day at baseline. Crystalloid bolus was considered however patient currently is hemodynamically stable and at the risk of volume overload deferred for now. Initial workup reviewed by me and my informal interpretation of his imaging shows normal size testicles however significant epididymitis orchitis on the right however there is blood flow to the testicle. Laboratory investigation showed that his white count is 25.7 with an absolute neutrophil count of 20.8 reticulocyte count of 3.1 a troponin of 0.03 CRP of 71.8. Reassessment 1425 and patient's pain is come down from a 10 out of 10 to 8 out of 10 and he remains hemodynamically stable and afebrile. Given the findings I had an interactive discussion with the [facility] transfer center Dr. Tran regarding patient NGUYEN findings and patient management and he involved Dr. Anrdea of urology as well and decision is made to transfer the patient to [facility] emergency department for further evaluation and care. Patient received a dose of Vanco Zosyn and azithromycin empirically blood cultures were sent patient has received a total of of 4 mg total of Dilaudid as well as 75 mg total of Benadryl prior to transfer I was consulted by the [facility], and we discussed the complexity of the problems being addressed. I approved the treatment and management plan for this patient's care in the Emergency Department, thus performing a substantive portion of the medical decision making. I independently interpreted patient's workup, concern for undifferentiated sepsis initially. Ultrasound consistent with bilateral suppurative epididymitis, right greater than left with mild testicular swelling. Tissue reperfusion performed after fluids and antibiotics, patient remains hemodynamically stable, mentating appropriately no change from baseline. Tachycardia improved. Appropriate for transfer to [facility] for urology evaluation for intervention. Diomedes Larson MD <La Nena Driscoll, DO - Last Filed: 04/25/24 15:54> Vital Signs: 04/25/24 13:27 04/25/24 13:52 04/25/24 14:00 Temperature Temperature Source Pulse Rate 91 H 87 Pulse Rate [Radial] 114 H Respiratory Rate 20 Blood Pressure 117/79 117/70 Blood Pressure [Right Arm] 126/88 Blood Pressure Mean 88 87 Blood Pressure Mean [Right Arm] 100 Blood Pressure Source [Right Arm] Automatic Cuff Blood Pressure Position [Right Arm] Supine 02 Sat by Pulse Oximetry 98 100 100 Oxygen Delivery Method Room Air Room Air Room Air 04/25/24 14:21 04/25/24 15:55 04/25/24 16:01 Temperature 98.7 F Temperature Source Oral Pulse Rate 92 H 84 Pulse Rate [Radial] Respiratory Rate Blood Pressure 128/79 96/59 L Blood Pressure [Right Arm] Blood Pressure Mean 83 Blood Pressure Mean [Right Arm] Blood Pressure Source [Right Arm] Blood Pressure Position [Right Arm] 02 Sat by Pulse Oximetry 100 97 Oxygen Delivery Method Room Air Room Air 04/25/24 16:30 04/25/24 17:00 04/25/24 18:00 Temperature Temperature Source Pulse Rate 81 81 81 Pulse Rate [Radial] Respiratory Rate Blood Pressure 100/65 L 96/61 L 93/53 L Blood Pressure [Right Arm] Blood Pressure Mean Blood Pressure Mean [Right Arm] Blood Pressure Source [Right Arm] Blood Pressure Position [Right Arm] 02 Sat by Pulse Oximetry 100 99 100 Oxygen Delivery Method Room Air Room Air Room Air 04/25/24 18:30 Temperature Temperature Source Pulse Rate 82 Pulse Rate [Radial] Respiratory Rate Blood Pressure 112/71 Blood Pressure [Right Arm] Blood Pressure Mean Blood Pressure Mean [Right Arm] Blood Pressure Source [Right Arm] Blood Pressure Position [Right Arm] 02 Sat by Pulse Oximetry 99 Oxygen Delivery Method Room Air Lab Data Lab Results 04/25/24 13:34: WBC 25.7 H*, RBC 3.15 L, Hgb 9.4 L, Hct 28.6 L, MCV 90.8, MCH 29.8, MCHC 32.9, RDW 17.2, Plt Count 732 H, MPV 9.0, Neut % (Auto) 80.9 H, Lymph % (Auto) 10.1, Leon % (Auto) 7.4, Eos % (Auto) 0.6, Baso % (Auto) 0.5, Neut # (Auto) 20.8 H, Lymph # (Auto) 2.6, Leon # (Auto) 1.9 H, Eos # (Auto) 0.2, Baso # (Auto) 0.1, Total Counted 100, Neutrophils % (Manual) 84 H, Lymphocytes % (Manual) 8 L, Monocytes % (Manual) 8, Platelet Estimate Marked increase, RBC Morphology Normal, ESR 60 H, Retic Count (auto) 3.1, PT 10.9, INR 0.99, D-Dimer 1.02 H, Sodium 138, Potassium 4.6, Chloride 103, Carbon Dioxide 26, Anion Gap 13.6, BUN 14, Creatinine 0.70, Estimated Creat Clear 170, Estimated GFR 133, Est GFR ( Amer) 161, Glucose 107 H, Calcium 9.0, Magnesium 1.8, Total Bilirubin 2.0 H, AST 79 H, ALT 42, Alkaline Phosphatase 127 H, Lactate Dehydrogenase 586, Troponin I 0.03, C-Reactive Protein 71.8 H, Total Protein 10.6 H, Albumin 4.5, Globulin 6.1 H, Albumin/Globulin Ratio 0.7 L 04/25/24 13:53: Blood Type O Positive, Antibody Screen Negative Orders (Tests/Meds): ED MEDICATIONS Generic Name Dose Route Start Last Admin Trade Name Freq PRN Reason Stop Dose Admin Piperacillin Sod/Tazobactam 50 mls @ 100 mls/hr 04/25/24 14:30 04/25/24 14:43 Sod 3.375 gm/ Sodium Chloride IV 05/05/24 14:29 100 mls/hr Q6H TORRES Administration Discontinued Medications Generic Name Dose Route Start Last Admin Trade Name Freq PRN Reason Stop Dose Admin Acetaminophen 1,000 mg 04/25/24 13:35 04/25/24 13:47 Acetaminophen 1,000mg/100ml Vial IV 04/25/24 13:36 1,000 mg ONCE ONE Administration Azithromycin 500 mg 04/25/24 16:01 04/25/24 16:02 Azithromycin 250mg Tablet PO 04/25/24 16:02 500 mg ONCE ONE Administration Diphenhydramine HCl 50 mg 04/25/24 13:46 04/25/24 13:48 Diphenhydramine 50mg/Ml Vial IV 04/25/24 13:47 50 mg ONCE ONE Administration Diphenhydramine HCl 25 mg 04/25/24 15:54 04/25/24 15:58 Diphenhydramine 50mg/Ml Vial IV 04/25/24 15:55 25 mg ONCE ONE Administration Hydromorphone HCl 2 mg 04/25/24 13:35 04/25/24 13:48 Hydromorphone 2mg/Ml Syringe IV 04/25/24 13:36 2 mg ONCE ONE Administration Hydromorphone HCl 1 mg 04/25/24 14:23 04/25/24 14:32 Hydromorphone 2mg/Ml Syringe IV 04/25/24 14:24 1 mg ONCE ONE Administration Hydromorphone HCl 1 mg 04/25/24 15:09 04/25/24 15:16 Hydromorphone 2mg/Ml Syringe IV 04/25/24 15:10 1 mg ONCE ONE Administration Hydromorphone HCl 2 mg 04/25/24 16:18 04/25/24 16:31 Hydromorphone 2mg/Ml Syringe IV 04/25/24 16:19 2 mg ONCE ONE Administration Hydromorphone HCl 1 mg 04/25/24 18:22 04/25/24 18:31 Hydromorphone 2mg/Ml Syringe IV 04/25/24 18:23 1 mg ONCE ONE Administration Vancomycin/PEG/NADA/Lysine/Water 1.5 gm in 300 mls @ 150 mls/hr 04/25/24 14:30 04/25/24 16:02 Vancomycin 1.5gm/300ml (Peg) Premix IV 04/25/24 16:29 150 mls/hr ONCE ONE Administration Azithromycin 500 mg/ Sodium 250 mls @ 250 mls/hr 04/25/24 15:45 04/25/24 16:09 Chloride IV 04/25/24 15:46 Not Given ONCE ONE Miscellaneous 1 each 04/25/24 14:30 Vancomycin Consult Request NOTAPPLIC 05/25/24 14:29 [facility] Ondansetron HCl 4 mg 04/25/24 13:42 04/25/24 13:47 Ondansetron 4mg/2ml Vial IV 04/25/24 13:43 4 mg ONCE ONE Administration ORDERS Category Date Time Status Type and Screen Stat BBK 04/25/24 13:53 Completed CXR --portable [XR chest portable] Stat Exams 04/25/24 13:42 Completed CBC w/Auto Diff [Complete Blood Count Auto Diff] Stat Lab 04/25/24 13:34 Completed CMP [Comprehensive Metabolic Panel] Stat Lab 04/25/24 13:34 Completed CRP [C-Reactive Protein] Stat Lab 04/25/24 13:34 Completed D-Dimer Stat Lab 04/25/24 13:34 Completed ESR [Erythrocyte Sedimentation Rate] Stat Lab 04/25/24 13:34 Completed INR [Prothrombin Time INR] Stat Lab 04/25/24 13:34 Completed LDH [Lactate Dehydrogenase] Stat Lab 04/25/24 13:34 Completed Magnesium Stat Lab 04/25/24 13:34 Results Procalcitonin Stat Lab 04/25/24 13:34 Results Reticulocyte % (Auto) Stat Lab 04/25/24 13:34 Completed Trop I [Troponin I] Stat Lab 04/25/24 13:34 Completed Troponin I Q3H Lab 04/25/24 19:45 Ordered UA [Urinalysis and Microscopic] Stat Lab 04/25/24 13:40 Ordered Urine Chlam/Gono/Trich, PREMA Stat Lab 04/25/24 13:40 Ordered Blood Culture Stat Micro 04/25/24 14:20 Received Urine Culture Stat Micro 04/25/24 13:43 Ordered scrotum US [US Testicular] Stat Ultrasound 04/25/24 13:41 Completed Medical Decision Narrative: In summary patient is a [age, sex] who presents to the emergency department for evaluation of [complaint]. Patient is [hemodynamically stable/unstable] upon arrival, [febrile/afebrile]. [Unremarkable physical exam, nonfocal exam versus focal remarkable exam]. Differential diagnosis includes [DDx]. Initial workup will be conducted with [hematologic labs, imaging, respiratory swab, describe workup]. Initial interventions include [crystalloid bolus, medications, p.o. challenge, etc.] initial workup reviewed by me [hematologic labs are remarkable for... Imaging remarkable for... Urinalysis remarkable for]. Upon repeat evaluation [patient had acceptable resolution of symptoms, had persistent pain for which additional interventions were conducted (describe interventions), tolerated p.o., was ambulatory, etc.]. Given this [patient is appropriate for discharge at this time and will be discharged with a prescription for... The case was discussed with hospital medicine regarding management and they will admit the patient their service for continued evaluation at this time... Etc.] reassessment 1425 Places where you can increase complexity: I informally interpreted the patient's chest x-ray or CT read and is remarkable for... Documenting what the electronic device monitor shows with rate and rhythm Consideration of test but deferring. Ex: I considered chest x-ray on this patient however given that they have no oxygen requirement and are clear to auscultation all lung garcia will be deferred. Social determinants of health: Given that patient is undomiciled increases complexity. Given that patient has polysubstance abuse compounds all aspects of care Critical Care <JAMAL Fragoso - Last Filed: 04/25/24 16:06> Critical Care Time Critical Care Time: Yes Attestation: On 04/25/24, the high probability of a clinically significant, sudden or life threatening deterioration of the following system(s) required my full and direct attention, intervention and personal management. The time I documented below is in addition to time spent performing reported procedures but includes the following listed in this critical care notation. Total Time Total Critical Care Time: 35
--- NOTE | 2024-04-25 13:41 | US_ITS ---
FINAL REPORT TECHNIQUE: Sonographic images of the testicles and scrotum were obtained in the longitudinal and transverse planes. CLINICAL HISTORY: Severe testicular pain COMPARISON: None FINDINGS: The right testicle measures 3.7 x 2.6 x 2.4 centimeters. There is no intratesticular mass. The epididymis is enlarged. There is a moderate hydrocele. There is prominent scrotal skin edema. Blood flow to the testicle and epididymis is mildly increased, favor epididymo-orchitis. No extratesticular mass is identified. The left testicle measures 3.7 x 2.0 x 2.0 centimeters. There is no intratesticular mass. The epididymis is within normal limits. There is no hydrocele. Blood flow is present and normal. No extratesticular mass is identified. Color imaging reveals no evidence of testicular torsion. IMPRESSION: No intratesticular mass or evidence of testicular torsion. Findings of right epididymo-orchitis with a right hydrocele. Reviewed, Interpreted and Dictated by Cyndie Ayon MD Transcribed by Darline Soto Authenticated and [facility]
--- NOTE | 2024-04-25 13:42 | XR_ITS ---
FINAL REPORT CLINICAL HISTORY: sickle cell crisis COMPARISON: None FINDINGS: A portable view of the chest was obtained. Mild cardiomegaly is present. The lungs are clear. There is no pleural effusion or pneumothorax. There is calcification present in the left upper quadrant of the abdomen, that may be secondary to splenic calcification. IMPRESSION: Mild cardiomegaly without infiltrate or pulmonary edema. Reviewed, Interpreted and Dictated by Cyndie Ayon MD Transcribed by Sangeetha Elliott Authenticated and [facility]
[2024-04-25 13:44] LABS: Basophils # 0.1 K/mm3 (0-0.2); Basophils % 0.5 % (0.1-2.0); Eosinophils # 0.2 K/mm3 (0.0-0.4); Eosinophils % 0.6 % (0.1-12.0); Hematocrit 28.6 % (42.0-52.0); Hemoglobin 9.4 g/dL (14.1-18.0); Lymphocytes # 2.6 K/mm3 (0.7-4.5); Lymphocytes % 10.1 % (10-50); Mean Corpuscular HGB Conc 32.9 g/dL (31.8-35.4); Mean Corpuscular Hemoglobin 29.8 pg (27.0-31.2); Mean Corpuscular Volume 90.8 fl (80-94); Monocytes # 1.9 K/mm3 (0.1-1.0); Monocytes % 7.4 % (1.7-9.3); Neutrophils # 20.8 K/mm3 (1.8-7.8); Neutrophils % 80.9 % (37.0-80.0); Platelet Count 732 K/mm3 (142-424); Red Blood Count 3.15 M/mm3 (4.60-6.20); Red Cell Distribution Width 17.2 % (11.5-17.5); White Blood Count 25.7 K/mm3 (4.8-10.8)
[2024-04-25 13:46] LABS: Albumin Level 4.5 g/dl (3.5-5.0); Chloride 103 mmol/L (98-107); Potassium 4.6 mmoL/L (3.5-5.1); Sodium 138 mmol/L (136-145)
[2024-04-25] MEDS: ONDANSETRON 4MG/2ML VIAL 4 MG IV (13:47)
[2024-04-25] MEDS: ACETAMINOPHEN 1,000MG/100ML VIAL 1000 MG IV (13:47)
[2024-04-25] MEDS: diphenhydrAMINE 50MG/ML VIAL 50 MG IV (13:48)
[2024-04-25] MEDS: HYDROMORPHONE 2MG/ML SYRINGE 2 MG IV ×2 (13:48→16:31)
[2024-04-25 13:49] LABS: Alanine Aminotransferase 42 U/L (12-78); Albumin/Globulin Ratio 0.7 (1.1-1.8); Alkaline Phosphatase 127 U/L (38-126); Anion Gap 13.6 mEq/L (5-15); Aspartate Amino Transferase 79 U/L (17-59); Blood Urea Nitrogen 14 mg/dl (9-20); Carbon Dioxide 26 mmol/L (22.0-30.0); Creatinine Clearance Estimated 170 mL/min (50-200); Estimated Glomerular Filt Rate 133 ml/min (>60); GFR (African American) 161 ML/MIN (>60); Globulin 6.1 g/dL (1.3-3.2); Glucose 107 mg/dl (74-100); Total Protein,Serum 10.6 g/dl (6.3-8.2)
[2024-04-25 13:50] LABS: Reticulocyte % (Auto) 3.1 % (0.9-3.2)
[2024-04-25 13:52] LABS: MANUAL DIFFERENTIAL MANUAL DIFFERENTIAL (MANUAL DIFF)
[2024-04-25 13:58] LABS: C-Reactive Protein 71.8 mg/L (0-4)
[2024-04-25 14:07] LABS: Troponin I 0.03 ng/ml (0.00-0.034)
[2024-04-25 14:27] LABS: Erythrocyte Sedimentation Rate 60 mm/hr (0-15)
[2024-04-25] MEDS: HYDROMORPHONE 2MG/ML SYRINGE 1 MG IV ×4 (14:32→19:42)
[2024-04-25 14:36] LABS: Magnesium 1.8 mg/dl (1.6-2.3)
[2024-04-25] MEDS: PIPERCILLIN/TAZO 3.375 GM in 0.9 % SODIUM CHLORIDE 50 ML IV (14:43)
--- NOTE | 2024-04-25 14:43 | PC.NURSE ---
pt to US via wheelchair
[2024-04-25 14:45] LABS: INR 0.99 (0.9-1.1); Prothrombin Time 10.9 seconds (9.2-12.1)
--- NOTE | 2024-04-25 14:45 | PC.NURSE ---
blood cultures sent to lab; blue band placed on patient
[2024-04-25 14:55] LABS: Lymphocytes % 8 % (10-50); Monocytes % 8 % (2-9); Neutrophils % 84 % (42-76); Platelet Estimate Marked Increase; RBC Morphology Normal; Total Cells Counted 100
--- NOTE | 2024-04-25 15:09 | PC.NURSE ---
pt returned from [place]
--- NOTE | 2024-04-25 15:20 | PC.NURSE ---
CALLED [facility] PER RODRIGUEZ COTO FOR POSS TRANSFER FOR TESTICULAR ABSCESS WITH [facility]. [facility] STATED THEY WOULD GIVE US A CALLBACK.
--- NOTE | 2024-04-25 15:35 | PC.NURSE ---
JAMAL Mathis speaking with [facility] for possible transfer
[2024-04-25] MEDS: diphenhydrAMINE 50MG/ML VIAL 25 MG IV (15:58)
[2024-04-25] MEDS: AZITHROMYCIN 250MG TABLET 500 MG PO (16:02)
[2024-04-25] MEDS: VANCOMYCIN/WATER FOR INJ (PEG) 1.5 GM/300 ML PIGGYBACK IV (16:02)
--- NOTE | 2024-04-25 16:08 | PC.NURSE ---
ROUNDED ON THE PT. THE PT VOICES THAT HE DOES NOT NEED ANYTHING AT THIS TIME. CALL LIGHT IS WITHIN REACH OF THE PT.
[2024-04-25 17:14] LABS: D-Dimer 1.02 ug/mL (0.0-0.5)
[2024-04-25 17:36] LABS: Lactate Dehydrogenase 586 U/L (313-618)
--- NOTE | 2024-04-25 17:56 | PC.NURSE ---
ROUNDED ON THE PT. THE PT VOICES THAT HE DOES NOT NEED ANYTHING AT THIS TIME. CALL LIGHT IS WITHIN REACH OF THE PT.
--- NOTE | 2024-04-25 18:37 | PC.NURSE ---
ROUNDED ON THE PT. THE PT VOICES THAT HE DOES NOT NEED ANYTHING AT THIS TIME. CALL LIGHT IS WITHIN REACH OF THE PT.
--- NOTE | 2024-04-25 19:24 | PC.NURSE ---
Report called to NASEEM Bal @ [facility].
--- NOTE | 2024-04-25 19:24 | PC.NURSE ---
EMS here to get patient.
--- NOTE | 2024-04-25 22:16 | PC.NURSE ---
Henrry Saxena called and needed RAD reports faxed. Fax sent 04/25/2024 @ [phone]
== END 2024-04-25 19:15 | disposition short-term general hospital (02) ==
PROVIDERS: Physician Assistant; Emergency Provider Emergency Medicine
DX: A41.9 Sepsis, unspecified organism (principal); N45.4 Abscess of epididymis or testis; N50.811 Right testicular pain; D57.1 Sickle-cell disease without crisis; Z72.0 Tobacco use
CPT/HCPCS: 71045; 76870; 80053; 83615; 83735; 84145; 84484; 85007; 85025; 85027; 85044; 85378; 85610; 85651; 86140; 86850; 87040; 96365; 96366; 96367; 96374; 96375; 99291; J0131; J1171; J1200; J2405; J2543; J3372

== ENCOUNTER 2024-06-15 12:01 | Emergency (ER) | payer OTHER, SELFPAY ==
[2024-06-15] VITALS (8 sets, daily range): BP systolic 102–139; BP diastolic 65–97; PULSE 81–111; RESP 12–22; TEMP 36.7–37.1; O2SAT 91–100; BMI 25.1
--- NOTE | 2024-06-15 12:01 | ECG_ITS ---
APPROVED REPORT Exam: Resting ECG HR:119 bpm ECG Measurements Heart Rate 119 AXES ID 144 P 75 QRSd 78 QRS 85 QT 339 T 30 QTc 410 Conclusion SINUS TACHYCARDIA POSSIBLE RIGHT VENTRICULAR CONDUCTION DELAY [RSR (QR) IN V1/V2] NONSPECIFIC ST & T-WAVE ABNORMALITY ABNORMAL RHYTHM ECG UNCONFIRMED REPORT Electronically signed by : MARY AUGUSTINE, 06/17/2024 03:40:50
--- NOTE | 2024-06-15 12:10 | ED_ITS ---
Discharge Plan Disposition Patient Disposition: Xfer Short-Term Hosp Prescriptions Prescriptions: No Action hydroxyurea 500 mg capsule 500 mg PO DAILY amlodipine 10 mg tablet 10 mg PO DAILY pantoprazole 40 mg tablet,delayed release (DR/EC) 40 mg PO DAILY oxycodone 20 mg tablet 30 mg PO QID Eliquis 5 mg tablet 5 mg PO DAILY Referrals Follow up/Referrals: Provider,Referral, MD [Primary Care Provider] - See instructions Activity Restrictions/Add. Instructions Additional Instructions/Restrictions: Transfer to [facility] of Dr[facility] Fatima Clinical Impressions Clinical Impression: Sickle cell crisis, Acute chest pain, Anemia Stand Alone Forms Stand Alone Forms: Transfer Record - ED Print Language Print Language: Congolese Discharge ED Provider: Pj Allen HPI <JAMAL Fragoso - Last Filed: 06/15/24 14:32> General Chief Complaint: Chest Pain Stated Complaint: Chest Pain Time Seen by Provider: 06/15/24 12:10 History of Present Illness HPI narrative: Patient presents for evaluation of chest pain. Patient has been complaining of polyarthralgia for several days however he woke up this morning and began having chest pain. Patient states his pain is a 10 out of 10 currently. Patient does have a history of sickle cell but has not had transfusion in quite some time. He reports that he has been compliant with his hydroxyurea and Eliquis. Pain is located in the center of his chest does not radiate. He reports shortness of breath but no fever chills hemoptysis hematochezia melena hematemesis hematuria. Related Data Home Medications ?Medication ?Instructions ?Recorded ?Confirmed amlodipine 10 mg tablet 10 mg PO DAILY 04/25/24 04/25/24 apixaban 5 mg tablet (Eliquis) 5 mg PO DAILY 04/25/24 04/25/24 hydroxyurea 500 mg capsule 500 mg PO DAILY 04/25/24 04/25/24 oxycodone 20 mg tablet 30 mg PO QID 04/25/24 04/25/24 pantoprazole 40 mg tablet,delayed 40 mg PO DAILY 04/25/24 04/25/24 release Allergies Allergy/AdvReac Type Severity Reaction Status Date / Time morphine Allergy Unknown Verified 01/21/24 12:04 allergy reaction PFSH <JAMAL Fragoso - Last Filed: 06/15/24 14:32> PFSH Disclaimer: The information contained in this section may have been updated after the patient was seen, as this information can be updated by other users. Social History (Updated 01/21/24 @ 14:44 by Duglas Treviño MD) Smoking Status: Current every day smoker alcohol intake: former current occupational status: other Travel in the last 8 weeks: None Have you lived/traveled outside US in past 30 days?: No Contact w/someone who lives/traveled outside US past 30 days?: No Exposure to someone with infectious disease in past 14 days?: No Do you have a fever (greater than 100.4 F or 38 C)?: No Have you tested positive for COVID-19: No Exposed to someone with COVID-19 in past 14 days?: No Do you have a sore throat?: No Do you have a cough?: No Do you have any weakness?: No Do you have any diarrhea?: No Are you experiencing any unusual bleeding?: No Do you have any muscle aches/pain?: No Do you have any abdominal pain?: No Are you experiencing loss of taste or smell?: No <JAMAL Fragoso - Last Filed: 06/15/24 14:32> ROS Obtained: Yes Systems reviewed as appropriate & no additional complaints except as documented Physical Exam <JAMAL Fragoso - Last Filed: 06/15/24 14:32> General General appearance: alert and in no apparent distress Respiratory Respiratory exam: Present normal lung sounds bilaterally Cardiovascular Cardiovascular exam: Present regular rate Neurological Exam Neurological exam: Present alert and oriented X3 HEART Score <JAAML Fragoso - Last Filed: 06/15/24 14:32> HEART Score HEART Score assessment performed?: Yes History (anamnesis): Slightly suspicious ECG: Normal Age: <45 years Risk factors: 3 or more risk factors Troponin: </= normal limit HEART Score: 2 <Pj Allen MD - Last Filed: 06/15/24 14:47> HEART Score HEART Score: 2 Critical Care <JAMAL Fragoso - Last Filed: 06/15/24 14:32> Critical Care Time Critical Care Time: Yes Attestation: On , the high probability of a clinically significant, sudden or life threatening deterioration of the following system(s) required my full and direct attention, intervention and personal management. The time I documented below is in addition to time spent performing reported procedures but includes the following listed in this critical care notation. Total Time Total Critical Care Time: 35 Medical Decision Making <JAMAL Fragoso - Last Filed: 06/15/24 14:32> Medical Records Medical records reviewed: Yes I reviewed the patient's medical records. Mir Inquiry Pt receiving controlled substance: No Vital Signs Vital Signs: 06/15/24 12:37 06/15/24 14:24 Temperature 98.7 F Temperature Source Oral Pulse Rate 82 Pulse Rate [Left] 111 H Respiratory Rate 16 Blood Pressure 135/94 H Blood Pressure [Right Arm] 139/97 H Blood Pressure Mean [Right Arm] 111 Blood Pressure Source [Right Arm] Automatic Cuff Blood Pressure Position [Right Arm] Sitting 02 Sat by Pulse Oximetry 97 95 Oxygen Delivery Method Room Air Room Air Lab Data Lab results reviewed: Yes I reviewed the patient's lab results. Labs: Lab Results 06/15/24 12:16: VBG pH 7.37, VBG pCO2 37.5, VBG pO2 50.5 H, VBG HCO3 21.0 L, VBG Total CO2 22.1 L, VBG O2 Saturation 73.8 H, VBG Base Excess -4.4 L, VBG Lactic Acid 1.6 06/15/24 12:21: WBC 20.7 H*, RBC 2.69 L, Hgb 7.9 L, Hct 22.9 L, MCV 85.1, MCH 29.4, MCHC 34.5, RDW 22.1 H, Plt Count 353, MPV 10.2, Neut % (Auto) 67.2, Lymph % (Auto) 24.8, Bond % (Auto) 6.2, Eos % (Auto) 0.6, Baso % (Auto) 0.6, Neut # (Auto) 13.9 H, Lymph # (Auto) 5.1 H, Bond # (Auto) 1.3 H, Eos # (Auto) 0.1, Baso # (Auto) 0.1, Total Counted 100, Neutrophils % (Manual) 67, Lymphocytes % (Manual) 30, Monocytes % (Manual) 3, Platelet Estimate Marked increase, RBC Morphology Not Reportable, Hypochromasia 1+, Sickle Cells 1+, ESR 23 H, Retic Count (auto) 21.4 H, PT 11.2, INR 1.00, Sodium 139, Potassium 4.5, Chloride 103, Carbon Dioxide 24, Anion Gap 16.5 H, BUN 8 L, Creatinine 0.70, Estimated GFR 133, Est GFR ( Amer) 161, Glucose 101 H, Calcium 8.7, Magnesium 1.8, T otal Bilirubin 5.9 H, AST 135 H, ALT 31, Alkaline Phosphatase 87, Lactate Dehydrogenase 1700 H, Troponin I 0.03, C-Reactive Protein 22.1 H, NT-Pro-B Natriuret Pep 201 H, Total Protein 10.4 H, Albumin 4.7, Globulin 5.7 H, A lbumin/Globulin Ratio 0.8 L, Procalcitonin 0.389 06/15/24 12:21 06/15/24 12:21 Response Orders (Tests/Meds): ED MEDICATIONS Discontinued Medications Generic Name Dose Route Start Last Admin Trade Name Freq PRN Reason Stop Dose Admin Acetaminophen 1,000 mg 06/15/24 12:12 06/15/24 12:53 Acetaminophen 500mg Tab PO 06/15/24 12:13 1,000 mg ONCE ONE Administration Aspirin 324 mg 06/15/24 12:48 06/15/24 12:53 Aspirin 81mg Chewable Tablet PO 06/15/24 12:49 324 mg ONCE ONE Administration Diphenhydramine HCl 25 mg 06/15/24 12:55 06/15/24 13:02 Diphenhydramine 50mg/Ml Vial IV 06/15/24 12:56 25 mg ONCE ONE Administration Diphenhydramine HCl 25 mg 06/15/24 14:25 06/15/24 14:32 Diphenhydramine 50mg/Ml Vial IV 06/15/24 14:26 25 mg ONCE ONE Administration Hydromorphone HCl 1 mg 06/15/24 12:12 06/15/24 13:02 Hydromorphone 2mg/Ml Syringe IV 06/15/24 12:13 1 mg ONCE ONE Administration Hydromorphone HCl 1 mg 06/15/24 14:06 06/15/24 14:19 Hydromorphone 2mg/Ml Syringe IV 06/15/24 14:07 1 mg ONCE ONE Administration Sodium Chloride 1,000 mls @ 999 mls/hr 06/15/24 12:12 06/15/24 14:19 Sod Chlor 0.9% 1000ml Bag IV 06/15/24 13:12 999 mls/hr .Q1H1M ONE Administration Ceftriaxone Sodium 1 gm/ 50 mls @ 100 mls/hr 06/15/24 14:07 06/15/24 14:41 Sodium Chloride IV 06/15/24 14:36 100 mls/hr ONCE ONE Administration Azithromycin 500 mg/ Sodium 250 mls @ 250 mls/hr 06/15/24 14:07 Chloride IV 06/15/24 14:08 ONCE ONE Iopamidol 70 ml 06/15/24 13:26 06/15/24 13:27 Iopamidol-370 (76%);100ml Bottle IV 06/15/24 13:27 70 ml ONCE ONE Administration Iopamidol 35 ml 06/15/24 13:38 06/15/24 13:38 Iopamidol-370 (76%);100ml Bottle IV 06/15/24 13:39 35 ml ONCE ONE Administration Iopamidol 70 ml 06/15/24 13:58 06/15/24 14:07 Iopamidol-370 (76%);100ml Bottle IV 06/15/24 13:59 70 ml ONCE ONE Administration Nitroglycerin 0.4 mg 06/15/24 12:48 06/15/24 14:24 Nitroglycerin 0.4mg Sl Tablet SL 06/15/24 12:49 Not Given ONCE ONE Sodium Chloride 10 ml 06/15/24 13:26 06/15/24 13:27 Sodium Chloride 0.9% 10ml Syr (Rad Only) IV 06/15/24 13:27 10 ml ONCE ONE Administration Sodium Chloride 50 ml 06/15/24 13:26 06/15/24 13:26 0.9 % Sodium Chloride 50 Ml Vial IV 06/15/24 13:27 50 ml ONCE ONE Administration ORDERS Category Date Time Status CT angio chest PE protocol Stat Cat Scan 06/15/24 12:12 Completed BNP [NT Pro Brain Natriuretic Pep.] Stat Lab 06/15/24 12:21 Completed CBC w/Auto Diff [Complete Blood Count Auto Diff] Stat Lab 06/15/24 12:21 Completed CMP [Comprehensive Metabolic Panel] Stat Lab 06/15/24 12:21 Completed CRP [C-Reactive Protein] Stat Lab 06/15/24 12:21 Completed ESR [Erythrocyte Sedimentation Rate] Stat Lab 06/15/24 12:21 Completed INR [Prothrombin Time INR] Stat Lab 06/15/24 12:21 Completed LDH [Lactate Dehydrogenase] Stat Lab 06/15/24 12:21 Completed Magnesium Stat Lab 06/15/24 12:21 Completed Procalcitonin Stat Lab 06/15/24 12:21 Completed Reticulocyte % (Auto) Stat Lab 06/15/24 12:21 Completed Trop I [Troponin I] Stat Lab 06/15/24 12:21 Completed Troponin I Q3H Lab 06/15/24 15:15 Ordered Troponin I Q3H Lab 06/15/24 18:15 Ordered Blood Culture Stat Micro 06/15/24 14:20 Received VBG [Venous Blood Gas] Stat RT 06/15/24 12:16 Completed MDM Narrative Medical Decision Narrative: In summary patient is a 28-year-old male who presents to the emergency department for evaluation of chest pain. Patient is normotensive at 139/97 tachycardia at 111 with sinus tachycardia the bedside monitor breathing 16 times a minute satting at 97% room air upon arrival, afebrile at 98.7. Physical exam is remarkable for nonreproducible chest pain on palpation clear breath sounds with no increased work of breathing or adventitious sounds heart sounds are S1- S2 regular rate rhythm without murmurs gallops rubs or thrills no dependent edema abdomen soft nontender no rebound no guarding no rigidity. Patient has painful range of motion of all joints but does have full range of motion.. Differential diagnosis includes ACS versus PE versus acute chest syndrome versus sickle cell crisis etc. Initial workup will be conducted with hematologic labs twelve-lead EKG CT PE protocol. Initial interventions include crystalloid bolus of 1 L Zofran Dilaudid supplemental O2 continuous pulse oximetry. Initial workup reviewed by me and his hematologic labs are remarkable for a white count of 20.7 and a hemoglobin of 7.9 and hematocrit of 22.9 and absolute neutrophil count of 13.9+1 sickle cells sed rate is 23 reticulocyte count is 21.4 VBG shows a pH of 7.37 with a VBG lactic acid of 1.6 anion gap is 16.5 BUN is 8 creatinine 0.7 GFR 133 total bilirubin is 5.9 AST is 135 ALT 31 alk phos 87 LDH is 1700 initial troponin is normal at 0.03 CRP is 22.1 NT proBNP is 201 procalcitonin is 0.389 and my informal interpretation of his CT scan PE protocol does not show any evidence of thrombus or acute intrathoracic abnormality but does shows splenic sequestration of contrast prior to radiology read.. Upon repeat evaluation patient reports that his pain is still a 10 out of 10 after initial intervention. Given this the patient was placed in observation status at 1330. An additional liter of fluid was ordered, an additional dose of Dilaudid was ordered along with Benadryl, patient blood cultures drawn and started on Rocephin and azithromycin. Medical necessity for observational status is serial troponins and intractable pain requiring serial doses. The patient was provided serial reevaluations continuous cardiac monitoring pulse oximetry while awaiting results. We then had an interactive discussion with [facility] transfer center regarding patient presentation NGUYEN and patient management and he has been accepted for transfer to the [facility] care of Dr. Fatima. Total time in observation was 1 hour. <Pj Allen MD - Last Filed: 06/15/24 14:47> Vital Signs Vital Signs: 06/15/24 12:37 06/15/24 14:24 Temperature 98.7 F Temperature Source Oral Pulse Rate 82 Pulse Rate [Left] 111 H Respiratory Rate 16 Blood Pressure 135/94 H Blood Pressure [Right Arm] 139/97 H Blood Pressure Mean [Right Arm] 111 Blood Pressure Source [Right Arm] Automatic Cuff Blood Pressure Position [Right Arm] Sitting 02 Sat by Pulse Oximetry 97 95 Oxygen Delivery Method Room Air Room Air Lab Data Labs: Lab Results 06/15/24 12:16: VBG pH 7.37, VBG pCO2 37.5, VBG pO2 50.5 H, VBG HCO3 21.0 L, VBG Total CO2 22.1 L, VBG O2 Saturation 73.8 H, VBG Base Excess -4.4 L, VBG Lactic Acid 1.6 06/15/24 12:21: WBC 20.7 H*, RBC 2.69 L, Hgb 7.9 L, Hct 22.9 L, MCV 85.1, MCH 29.4, MCHC 34.5, RDW 22.1 H, Plt Count 353, MPV 10.2, Neut % (Auto) 67.2, Lymph % (Auto) 24.8, Bond % (Auto) 6.2, Eos % (Auto) 0.6, Baso % (Auto) 0.6, Neut # (Auto) 13.9 H, Lymph # (Auto) 5.1 H, Bond # (Auto) 1.3 H, Eos # (Auto) 0.1, Baso # (Auto) 0.1, Total Counted 100, Neutrophils % (Manual) 67, Lymphocytes % (Manual) 30, Monocytes % (Manual) 3, Platelet Estimate Marked increase, RBC Morphology Not Reportable, Hypochromasia 1+, Sickle Cells 1+, ESR 23 H, Retic Count (auto) 21.4 H, PT 11.2, INR 1.00, Sodium 139, Potassium 4.5, Chloride 103, Carbon Dioxide 24, Anion Gap 16.5 H, BUN 8 L, Creatinine 0.70, Estimated GFR 133, Est GFR ( Amer) 161, Glucose 101 H, Calcium 8.7, Magnesium 1.8, T otal Bilirubin 5.9 H, AST 135 H, ALT 31, Alkaline Phosphatase 87, Lactate Dehydrogenase 1700 H, Troponin I 0.03, C-Reactive Protein 22.1 H, NT-Pro-B Natriuret Pep 201 H, Total Protein 10.4 H, Albumin 4.7, Globulin 5.7 H, A lbumin/Globulin Ratio 0.8 L, Procalcitonin 0.389 Response Orders (Tests/Meds): ED MEDICATIONS Discontinued Medications Generic Name Dose Route Start Last Admin Trade Name Freq PRN Reason Stop Dose Admin Acetaminophen 1,000 mg 06/15/24 12:12 06/15/24 12:53 Acetaminophen 500mg Tab PO 06/15/24 12:13 1,000 mg ONCE ONE Administration Aspirin 324 mg 06/15/24 12:48 06/15/24 12:53 Aspirin 81mg Chewable Tablet PO 06/15/24 12:49 324 mg ONCE ONE Administration Diphenhydramine HCl 25 mg 06/15/24 12:55 06/15/24 13:02 Diphenhydramine 50mg/Ml Vial IV 06/15/24 12:56 25 mg ONCE ONE Administration Diphenhydramine HCl 25 mg 06/15/24 14:25 06/15/24 14:32 Diphenhydramine 50mg/Ml Vial IV 06/15/24 14:26 25 mg ONCE ONE Administration Hydromorphone HCl 1 mg 06/15/24 12:12 06/15/24 13:02 Hydromorphone 2mg/Ml Syringe IV 06/15/24 12:13 1 mg ONCE ONE Administration Hydromorphone HCl 1 mg 06/15/24 14:06 06/15/24 14:19 Hydromorphone 2mg/Ml Syringe IV 06/15/24 14:07 1 mg ONCE ONE Administration Sodium Chloride 1,000 mls @ 999 mls/hr 06/15/24 12:12 06/15/24 14:19 Sod Chlor 0.9% 1000ml Bag IV 06/15/24 13:12 999 mls/hr .Q1H1M ONE Administration Ceftriaxone Sodium 1 gm/ 50 mls @ 100 mls/hr 06/15/24 14:07 06/15/24 14:41 Sodium Chloride IV 06/15/24 14:36 100 mls/hr ONCE ONE Administration Azithromycin 500 mg/ Sodium 250 mls @ 250 mls/hr 06/15/24 14:07 Chloride IV 06/15/24 14:08 ONCE ONE Iopamidol 70 ml 06/15/24 13:26 06/15/24 13:27 Iopamidol-370 (76%);100ml Bottle IV 06/15/24 13:27 70 ml ONCE ONE Administration Iopamidol 35 ml 06/15/24 13:38 06/15/24 13:38 Iopamidol-370 (76%);100ml Bottle IV 06/15/24 13:39 35 ml ONCE ONE Administration Iopamidol 70 ml 06/15/24 13:58 06/15/24 14:07 Iopamidol-370 (76%);100ml Bottle IV 06/15/24 13:59 70 ml ONCE ONE Administration Nitroglycerin 0.4 mg 06/15/24 12:48 06/15/24 14:24 Nitroglycerin 0.4mg Sl Tablet SL 06/15/24 12:49 Not Given ONCE ONE Sodium Chloride 10 ml 06/15/24 13:26 06/15/24 13:27 Sodium Chloride 0.9% 10ml Syr (Rad Only) IV 06/15/24 13:27 10 ml ONCE ONE Administration Sodium Chloride 50 ml 06/15/24 13:26 06/15/24 13:26 0.9 % Sodium Chloride 50 Ml Vial IV 06/15/24 13:27 50 ml ONCE ONE Administration ORDERS Category Date Time Status CT angio chest PE protocol Stat Cat Scan 06/15/24 12:12 Completed BNP [NT Pro Brain Natriuretic Pep.] Stat Lab 06/15/24 12:21 Completed CBC w/Auto Diff [Complete Blood Count Auto Diff] Stat Lab 06/15/24 12:21 Completed CMP [Comprehensive Metabolic Panel] Stat Lab 06/15/24 12:21 Completed CRP [C-Reactive Protein] Stat Lab 06/15/24 12:21 Completed ESR [Erythrocyte Sedimentation Rate] Stat Lab 06/15/24 12:21 Completed INR [Prothrombin Time INR] Stat Lab 06/15/24 12:21 Completed LDH [Lactate Dehydrogenase] Stat Lab 06/15/24 12:21 Completed Magnesium Stat Lab 06/15/24 12:21 Completed Procalcitonin Stat Lab 06/15/24 12:21 Completed Reticulocyte % (Auto) Stat Lab 06/15/24 12:21 Completed Trop I [Troponin I] Stat Lab 06/15/24 12:21 Completed Troponin I Q3H Lab 06/15/24 15:15 Ordered Troponin I Q3H Lab 06/15/24 18:15 Ordered Blood Culture Stat Micro 06/15/24 14:20 Received VBG [Venous Blood Gas] Stat RT 06/15/24 12:16 Completed ECG Data Tracing #1: ECG Narrative: Independently interpreted by me rate is 119, rhythm is regular, axis is normal, no ST elevation in anatomical contiguous leads, QTc 410 MDM Narrative Medical Decision Narrative: In summary patient is a 28-year-old male who presents to the emergency department for evaluation of chest pain. Patient is normotensive at 139/97 tachycardia at 111 with sinus tachycardia the bedside monitor breathing 16 times a minute satting at 97% room air upon arrival, afebrile at 98.7. Physical exam is remarkable for nonreproducible chest pain on palpation clear breath sounds with no increased work of breathing or adventitious sounds heart sounds are S1- S2 regular rate rhythm without murmurs gallops rubs or thrills no dependent edema abdomen soft nontender no rebound no guarding no rigidity. Patient has painful range of motion of all joints but does have full range of motion.. Differential diagnosis includes ACS versus PE versus acute chest syndrome versus sickle cell crisis etc. Initial workup will be conducted with hematologic labs twelve-lead EKG CT PE protocol. Initial interventions include crystalloid bolus of 1 L Zofran Dilaudid supplemental O2 continuous pulse oximetry. Initial workup reviewed by me and his hematologic labs are remarkable for a white count of 20.7 and a hemoglobin of 7.9 and hematocrit of 22.9 and absolute neutrophil count of 13.9+1 sickle cells sed rate is 23 reticulocyte count is 21.4 VBG shows a pH of 7.37 with a VBG lactic acid of 1.6 anion gap is 16.5 BUN is 8 creatinine 0.7 GFR 133 total bilirubin is 5.9 AST is 135 ALT 31 alk phos 87 LDH is 1700 initial troponin is normal at 0.03 CRP is 22.1 NT proBNP is 201 procalcitonin is 0.389 and my informal interpretation of his CT scan PE protocol does not show any evidence of thrombus or acute intrathoracic abnormality but does shows splenic sequestration of contrast prior to radiology read.. Upon repeat evaluation patient reports that his pain is still a 10 out of 10 after initial intervention. Given this the patient was placed in observation status at 1330. An additional liter of fluid was ordered, an additional dose of Dilaudid was ordered along with Benadryl, patient blood cultures drawn and started on Rocephin and azithromycin. Medical necessity for observational status is serial troponins and intractable pain requiring serial doses. The patient was provided serial reevaluations continuous cardiac monitoring pulse oximetry while awaiting results. We then had an interactive discussion with [facility] transfer center regarding patient presentation NGUYEN and patient management and he has been accepted for transfer to the [facility] care of Dr. Fatima. Total time in observation was 1 hour. I was consulted by the [facility], and we discussed the complexity of the problems being addressed. I approved the treatment and management plan for this patient's care in the emergency department, thus performing a substantive portion of the medical decision making. Patient has leukocytosis, elevated LDH, hemoglobin 1 point lower than his baseline, elevated reticulocyte count. Has been covered broad-spectrum antibiotics appropriately given that he may have blood-borne infection. 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 2 L crystalloid resuscitation in total in the emergency department multiple doses of Dilaudid and Benadryl. Patient was transferred in stable condition. Pj Allen MD
--- NOTE | 2024-06-15 12:12 | CT_ITS ---
FINAL REPORT TECHNIQUE: Thin section axial CT with contrast with multiplanar reconstruction This study was performed with techniques to keep radiation doses as low as reasonably achievable, (ALARA). Individualized dose reduction techniques using automated exposure control or adjustment of mA and/or kV according to the patient''s size were employed. CLINICAL HISTORY: Chest pain, history of sickle cell FINDINGS: There is occlusion of the left subclavian and innominate vein causing opacification of multiple chest wall collateral branches. Pulmonary vessels enhance in normal fashion without evidence of embolism. Thoracic aorta shows no dissection or aneurysm. There is mild atelectasis. There is no evidence of pneumonia. There are few scattered small lung cysts. There is no significant pleural effusion. There is no significant pericardial effusion. No enlarged lymph nodes are present. The spleen is hyperdense which is probably due to calcification of multiple splenic infarcts. IMPRESSION: No evidence of pulmonary embolism. No evidence of pneumonia or edema. 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 Reviewed, Interpreted and Dictated by Jonathan Ruiz MD Transcribed by Sherrell Monahan Authenticated and [facility]
[2024-06-15 12:36] LABS: Prothrombin Time 11.2 seconds (10.1-12.5)
[2024-06-15 12:39] LABS: Alanine Aminotransferase 31 U/L (12-78); Albumin Level 4.7 g/dl (3.5-5.0); Albumin/Globulin Ratio 0.8 (1.1-1.8); Alkaline Phosphatase 87 U/L (38-126); Anion Gap 16.5 mEq/L (5-15); Aspartate Amino Transferase 135 U/L (17-59); Bilirubin,Total 5.9 mg/dl (0.2-1.3); Blood Urea Nitrogen 8 mg/dl (9-20); Calcium 8.7 mg/dl (8.4-10.2); Carbon Dioxide 24 mmol/L (22.0-30.0); Chloride 103 mmol/L (98-107); Estimated Glomerular Filt Rate 133 ml/min (>60); GFR (African American) 161 ML/MIN (>60); Globulin 5.7 g/dL (1.3-3.2); Glucose 101 mg/dl (74-100); Magnesium 1.8 mg/dl (1.6-2.3); Potassium 4.5 mmoL/L (3.5-5.1); Sodium 139 mmol/L (136-145); Total Protein,Serum 10.4 g/dl (6.3-8.2)
[2024-06-15 12:45] LABS: C-Reactive Protein 22.1 mg/L (0-4)
[2024-06-15 12:53] LABS: NT Pro Brain Natriuretic Pep. 201 pg/mL (0-125); Troponin I 0.03 ng/ml (0.00-0.034)
[2024-06-15] MEDS: ASPIRIN 81MG CHEWABLE TABLET 324 MG PO (12:53)
[2024-06-15] MEDS: ACETAMINOPHEN 500MG TAB 1000 MG PO (12:53)
[2024-06-15 12:58] LABS: Procalcitonin 0.389 ng/mL (0.0-2.0)
[2024-06-15] MEDS: HYDROMORPHONE 2MG/ML SYRINGE 1 MG IV ×2 (13:02→14:19)
[2024-06-15] MEDS: diphenhydrAMINE 50MG/ML VIAL 25 MG IV ×2 (13:02→14:32)
[2024-06-15 13:20] LABS: Erythrocyte Sedimentation Rate 23 mm/hr (0-15)
[2024-06-15 13:24] LABS: Basophils # 0.1 K/mm3 (0-0.2); Basophils % 0.6 % (0.1-2.0); Eosinophils # 0.1 K/mm3 (0.0-0.4); Eosinophils % 0.6 % (0.1-12.0); Hematocrit 22.9 % (42.0-52.0); Hemoglobin 7.9 g/dL (14.1-18.0); Lymphocytes # 5.1 K/mm3 (0.7-4.5); Lymphocytes % 24.8 % (10-50); Mean Corpuscular HGB Conc 34.5 g/dL (31.8-35.4); Mean Corpuscular Hemoglobin 29.4 pg (27.0-31.2); Mean Corpuscular Volume 85.1 fl (80-94); Mean Platelet Volume 10.2 fl (7.4-10.4); Monocytes # 1.3 K/mm3 (0.1-1.0); Monocytes % 6.2 % (1.7-9.3); Neutrophils # 13.9 K/mm3 (1.8-7.8); Neutrophils % 67.2 % (37.0-80.0); Nucleated Red Blood Cells # 0.57 10^3/uL; Nucleated Red Blood Cells % 2.8 %; Red Blood Count 2.69 M/mm3 (4.60-6.20); Red Cell Distribution Width 22.1 % (11.5-17.5); Red Cell Distribution Width-SD 62.1 fL; White Blood Count 20.7 K/mm3 (4.8-10.8)
[2024-06-15 13:26] LABS: Lactate Venous 1.6 mmol/L (0.4-2.0); VBG Base Excess -4.4 mmol/L (-2.4-2.3); VBG Oxygen Saturation 73.8 % (50-70); VBG PCO2 37.5 mmol/L (35-51); VBG PH 7.37 mmol/L (7.31-7.41); VBG PO2 50.5 mmol/L (28-40); VBG Total CO2 22.1 mmol/L (23-27)
[2024-06-15] MEDS: 0.9 % SODIUM CHLORIDE 50 ML VIAL IV (13:26)
[2024-06-15] MEDS: IOPAMIDOL-370 (76%);100ML BOTTLE 70 ML IV ×2 (13:27→14:07)
[2024-06-15] MEDS: SODIUM CHLORIDE 0.9% 10ML SYR (RAD ONLY) 10 ML IV (13:27)
[2024-06-15 13:30] LABS: Reticulocyte % (Auto) 21.4 % (0.9-3.2)
[2024-06-15] MEDS: IOPAMIDOL-370 (76%);100ML BOTTLE 35 ML IV (13:38)
[2024-06-15 13:56] LABS: MANUAL DIFFERENTIAL MANUAL DIFFERENTIAL (MANUAL DIFF)
[2024-06-15 14:04] LABS: Lymphocytes % 30 % (10-50); Monocytes % 3 % (2-9); Neutrophils % 67 % (42-76); Total Cells Counted 100
[2024-06-15 14:05] LABS: Sickle Cells 1+
[2024-06-15 14:06] LABS: Hypochromasia 1+; Platelet Estimate Marked Increase
[2024-06-15 14:07] LABS: Platelet Count 353 K/mm3 (142-424)
[2024-06-15 14:10] LABS: Lactate Dehydrogenase 1700 U/L (313-618)
--- NOTE | 2024-06-15 14:12 | PC.NURSE ---
calling [facility] for transfer due to complication associated with sickle cell per
--- NOTE | 2024-06-15 14:15 | PC.NURSE ---
SPEAKING WITH MAURICE OLIVARES FROM
[2024-06-15] MEDS: 0.9 % SODIUM CHLORIDE 1000ML 1,000 ML 999 ML IV ×2 (14:19→14:50)
--- NOTE | 2024-06-15 14:39 | PC.NURSE ---
report called to iesha at [facility] ED
[2024-06-15] MEDS: CEFTRIAXONE 1 GM 1 GM in 0.9 % SODIUM CHLORIDE 50 ML IV (14:41)
--- NOTE | 2024-06-15 14:45 | PC.NURSE ---
EMS was called and said they would be here shortly
[2024-06-15] MEDS: AZITHROMYCIN 500 MG in 0.9 % SODIUM CHLORIDE 250 ML 250 MG IV (15:05)
[2024-06-15] MEDS: OXYCODONE 5MG IMMEDIATE RELEASE TABLET 30 MG PO (15:47)
--- NOTE | 2024-06-15 16:41 | PC.NURSE ---
EMS called and advised they were headed this way to [facility] for the transfer to
== END 2024-06-15 17:25 | disposition short-term general hospital (02) ==
PROVIDERS: Physician Assistant; Emergency Provider Emergency Medicine
DX: D57.219 Sickle-cell/Hb-C disease with crisis, unspecified (principal); R07.9 Chest pain, unspecified; D64.9 Anemia, unspecified
CPT/HCPCS: 71275; 80053; 82803; 83615; 83735; 83880; 84145; 84484; 85007; 85025; 85027; 85044; 85610; 85651; 86140; 87040; 93005; 96361; 96365; 96375; 99285; J0456; J0696; J1171; J1200; J7030; J7050; Q9967

== ENCOUNTER 2024-12-16 20:03 | Emergency (ER) | payer OTHER, SELFPAY ==
--- OUTSIDE RECORDS SUMMARY | 2024-10-19 08:00 | XMS_ITS | Encounter Summary ---
Author Organization Healthcare Address [address] [place] [address] Care Team Providers Care Comic Writer Name Role Phone Du Favian Wilfrido [facility] Primary Care Provider [phone] Navya Man MD Unavailable Cathleen Pena LPN Unavailable Unavailabl e Reason for Visit * Auth/Cert (Routine) Specialty Diagnoses / Procedures Referred By Contac t Referred To Contact Diagnoses Sickle cell pain crisis (CMS/HCC) Blood transfusion reaction, initial encounter Lazaro Cortez MD [address] [place] [address] Phone: tel: fax: [facility] Inpatient [address] [place] [address] Referral ID Status Reason Start Date Expiration Date Visits Re quested Visits Authorized [id number] 1 1 Encounter Details Date Type Department Care Team (Latest Contact Info) Description 10/19/2024 8:00 AM EDT - 10/19/2024 5:30 PM EDT Hospital Encounter [facility] Apheresis [address] [place] [address] Sickle cell disease with crisis (CMS/HCC) (Primary Dx) Discharge Disposition: Home or Self Care Social History Tobacco Use Types Packs/Day Years Used Date Smoking Tobacco: Former Cigarettes 0.3 3 2 013 - 2016 Passive Smoke Exposure: Past Smokeless Tobacco: Never Alcohol Use Standard Drinks/Week Comments Never 0 (1 standard drink = 0.6 oz pur e alcohol) PHQ-2 Answer Date Recorded Patient Health Questionnaire-2 Score 0 08/31/2024 PHQ-9 Answer Date Recorded Patient Health Questionnaire-9 Score 0 08/31/2024 Humiliation, Afraid, Rape, and Kick questionnair e Answer Date Recorded Within the last year, have y ou been afraid of your partner or ex-partner? No 10/23/2024 Within the last year, have y ou been humiliated or emotionally abused in other ways by your partner or ex-partner? No Within the last year, have y ou been kicked, hit, slapped, or otherwise physically hurt by your partner or ex-partner? No 10/23/2024 Within the last year, have y ou been raped or forced to have any kind of sexual activity by your partner or ex-partner? No 10/23/2024 Overall Financial Resource Strain (CARDIA) Answe r Date Recorded How hard is it for you to pa y for the very basics like food, housing, medical care, and heating? Not very hard 10/05/2024 Hunger Vital Sign Answer Date Recorded Within the past 12 months, y ou worried that your food would run out before you got the money to buy more. Never true 10/24/19 25 Within the past 12 months, t he food you bought just didn't last and you didn't have money to get more. Never true 10/23/2024 PRAPARE - Transportation Answer Date Re corded In the past 12 months, has l ack of transportation kept you from medical appointments or from getting medications? No 10/05 In the past 12 months, has l ack of transportation kept you from meetings, work, or from getting things needed for daily living? No 10/23/2024 Housing Stability Vital Sign Answer Sourav e Recorded In the last 12 months, was t here a time when you were not able to pay the mortgage or rent on time? No 10/23/2024 Number of Times Moved in the Last Year Not on fi le 10/23/2024 At any time in the past 12 m [facility], were you homeless or living in a residential (including now)? No 10/23/2024 CAGE ASSESSMENT Answer Date Recorded Cage unable to access Not on file 10/20/2024 Cage max number of drinks Not on file 2024 Cage Beverages a week Not on file 10/20/2024 Have you ever felt you should CUT down on your d rinking? 0 10/20/2024 Have you been ANNOYED by people criticizing your drinking? 0 10/20/2024 Have you felt GUILTY about your drinking? 0 10/20/2024 Have you had a drink first t geri in the morning ([employer]) to steady your nerves or to get rid of a hangover? 0 10/20/2024 CAGE Questionnaire Score 0 025 Utilities Answer Date Recorded In the past 12 months has Auto I.[employer] gas, oil, or water company threatened to shut off services in your home? No 10/23/2024 Sex and Gender Information Value Date Recorded Sex Assigned at Male 03/16/2024 2:12 PM EST Legal Sex Male 7:40 PM EDT Gender Identity Not on file Sexual Orientation Not on file documented as of this encounter Last Filed Vital Signs Vital Sign Reading Time Taken Comments Blood Pressure 102/66 10/19/2024 3:45 PM EDT Pulse 109 10/19/2024 3:45 PM EDT Temperature 38.3 C (101 F) 10/19/2024 3:45 PM EDT Respiratory Rate 20 10/19/2024 3:45 PM EDT Oxygen Saturation 96% 10/19/2024 3:45 PM EDT Inhaled Oxygen Concentration - - Weight 78.4 kg (172 lb 13.5 oz) 10/19/2024 9:12 AM EDT Height 182.9 cm (6') 10/19/2024 9:12 AM EDT Body Mass Index 23.44 10/19/2024 9:12 AM EDT documented in this encounter Functional Status * Calculated C-SSRS Risk Score (Lifetime/Recent) Answer Date of Assessment Author No Risk Indicated 11/02/2024 7:48 AM EDT Tip Cardozo RN * Question Answer Date of Assessment Author 1. Wish to be (Past 1 Month) No 025 7:48 AM EDT Maurice Cardozo RN 2. Non-Specific Active Suici mini Thoughts (Past 1 Month) No 11/02/2024 7:48 AM EDT Maurice Cardozo , RN 6. Suicidal Behavior (Lifetime) No 7:48 AM EDT Muarice Cardozo, RN documented as of this encounter Medications at Time of Discharge deferasirox (Exjade) 500 MG dispersible tablet Take 3 tablets by mouth daily before breakfast. Disperse tablets in water, orange juice, or apple juice (use 3.5 ounces for total doses less than1 g; 7 ounces for doses = 1 g). Stir, then drink entire contents. Rinse with more fluid; drink the rinse. 90 tablet 08/25/2024 diclofenac (Voltaren) 1 % topical gel Place 4 g on the skin 4 times a day as needed (pain). Apply as directed to lower back 150 g 2 08/25/2024 lidocaine (Lidoderm) 5 % patch Apply 2 patches topically 1 (one) time each day at the same time over 12 hours. Remove & discard patch within 12 hours or as directed by MD. 30 patch 10/15/2024 magnesium oxide (Mag-Ox) 400 (240 Mg) MG tablet Take 1 tablet by mouth daily. 30 tablet 08/26/2024 methocarbamol (Robaxin) 750 MG tablet Take 1 tablet by mouth 3 times a day as needed for muscle spasms. naloxone (Narcan) 4 mg/0.1 mL nasal spray 1. Give 1 spray in nostril for no/slow breathing or cannot wake after opioid use 2. Call 911 3. Repeat in other nostril if symptoms continue 1 each 10/31/2024 NIFEdipine XL (Adalat CC) 30 MG 24 hr tablet Take 1 tablet by mouth daily. Do not crush, chew, or split. 30 tablet 5 11/01/2024 6 senna (Senokot) 8.6 MG tablet Take 1 tablet by mouth daily. 30 tablet 10/14/2024 5 sodium chloride 0.9 % solution 500 mL with vancomycin 1 g reconstituted solution 2,500 mg continuous infusionIndication s:Blood transfusion reaction, initial encounter 2,500 mg by Intravenous (Continuous Infusion) route 1 (one) time each day at the same time at 21.9 mL/hr over 24 hours for 9 days. 9 Dose 11/01/2024 5 acetaminophen (Tylenol) 500 MG tablet Take 2 tablets by mouth every 8 hours as needed for pain. 90 tablet 09/28/2024 5 apixaban (Eliquis) 5 MG tablet Take 1 tablet by mouth 2 times a day. 60 tablet 10/14/2024 5 folic acid (Folvite) 1 MG tablet Take 1 tablet by mouth daily. 30 tablet 10/14/2024 5 hydroxyurea (Hydrea) 500 MG capsule Take 1 capsule (500 mg total) by mouth 2 times a day. 60 capsule 3 09/28/2024 5 naloxone (Narcan) 4 mg/0.1 mL nasal spray 1. Give 1 spray in nostril for no/slow breathing or cannot wake after opioid use 2. Call 911 3. Repeat in other nostril if symptoms continue 1 each 10/14/2024 5 oxyCODONE (Roxicodone) 30 MG immediate release tablet Take 1 tablet by mouth every 6 hours as needed for severe pain. 120 tablet 09/29/2024 5 oxyCODONE (Roxicodone) 30 MG immediate release tablet Take 1 tablet by mouth every 6 hours as needed for severe pain. 20 tablet 10/31/2024 5 oxyCODONE (Roxicodone) 5 MG immediate release tablet Take 2 tablets by mouth every 4 hours as needed for moderate pain or severe pain. 6 tablet 10/14/2024 5 polyethylene glycol (Miralax) 17 g packet Take 17 g by mouth daily as needed (constipation). 30 each 08/25/2024 5 sodium chloride 0.9 % solution 500 mL with vancomycin 1 g reconstituted solution 2,500 mg continuous infusionIndication s:Blood transfusion reaction, initial encounter 2,500 mg by Intravenous (Continuous Infusion) route 1 (one) time each day at the same time at 21.9 mL/hr over 24 hours for 9 days. 9 Dose 11/01/2024 5 documented as of this encounter Miscellaneous Notes * Significant Event - Osito Topete, RN - 10/19/2024 5:18 PM EDT Took Mr Maddox to ED per wheelchair. * Significant Event - Osito Topete RN - 10/19/2024 4:12 PM EDT Estella Fitzgerald and Leonid notified of Mr Maddox's continued high level of pain and fever 101. * Significant Event - Osito Topete RN - 10/19/2024 3:08 PM EDT 250 ml bolus completed * Significant Event - Osito Topete RN - 10/19/2024 2:53 PM EDT Treatment officially aborted per Dr Fitzgerald verbal order. Stopped since 1202. 250 ml bolus started per v.o. Dr Fitzgerald. * Significant Event - Osito Topete RN - 10/19/2024 2:[address] Fitzgerald also at bedside. * Significant Event - Osito Topete RN - 10/19/2024 12:54 PM EDT Procedure still suspended. * Significant Event - Osito Topete RN - 10/19/2024 12:[address] Flynn here to see patient at 1210. IV benadryl given IV at 1223. Procedure still on hold. * Significant Event - Osito Topete RN - 10/19/2024 12:22 PM EDT Mr Maddox c/o increasing severe lower back pain , sharp and traveling up the back of his neck into his head. Also some itching. Heart rate elevated. Procedure suspended. Notified Dr Flynn of above * Significant Event - Osito Topete RN - 10/19/2024 10:08 AM EDT Mr Maddox arrived ambulatory with staff nurse anesthetist. States mild lower back pain, has been moving apartments. Right dual Vortex catheter accessed without difficulty and has brisk blood return from both ports.Apheresis consent and blood consent obtained by Dr Flynn. * Addendum Note - Kelli Tripp - 10/19/2024 8:00 AM EDTEncounter addended by: Kelli Tripp on: 11/08/2024 9:08 AM Actions taken: Flowsheet accepted * Progress Notes - Sundeep Flynn MD - 10/19/2024 8:00 AM EDT Red Blood Cell Exchange Indication: Sickle cell disease, non-acute, Stroke Prophylaxis (Category I, Grade 1A) Referring Physician: Seema Atkinson MD Moshe Maddox is a 29 y.o. 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 PMH also includes both HBV and HCV. He currently follows with Dr. Fitzgerald at [facility], previously Dr. Man at [facility], and before Dr. Donovan Pendleton at [facility] in [place]. HbSS management includes hydroxyurea, folic acid, and deferasirox. Baseline hemoglobin 8-9 g/dL.He underwent chronic RBCx but developed line infection and has since been treated with simple transfusions. Apheresis was consulted during an acute pain crisis on 08/04 when he presented to [facility] and was found to have S. mitis/oralis bacteremia. Ultimately, RBCx was not performed given history of poor vascular access and no access placed during hospitalization; he was discharged on 08/25. Recommendation at the time was for Mr. Maddox to obtain dual- lumen vortex port followed by outpatient chronic red cell exchanges. This line was placed on 10/04/24 after which point he was admitted to [facility] ED on 10/04 with chest pain. Chest pain had been going on for a few days prior to line placement; however, he wanted to wait until he received the port prior to being treated. Chest pain is consistent with sickle cell crisis which was treated with simple transfusion in anticipation of first outpatient RBCx 10/19/24. We agree that RBCx is indicated, this is a Category I indication. References Binh et al. Guidelines on the Use of Therapeutic Apheresis in Clinical Practice - Evidence-Based Approach from the Writing Committee of the [employer] for Apheresis: The Ninth Special Issue. J Clin Apher. 2022;38(2):77-278. PMID: 49157308 SUBJECTIVE: Mr. Moshe Maddox has tolerated previous procedures in the past without complication.He is sufficiently stable for today???s scheduled procedure. As this is the first treatment, Moshe Maddox has been informed about the risks, benefits, and alternatives to RBC exchange for the treatment of Sickle cell disease, stroke prophylaxis. Moshe Maddox demonstrated understanding and wishes to proceed with treatment after giving informed consent. I, Sundeep Flynn MD, facilitated this discussion. I evaluated the patient and Moshe Maddox is sufficiently stable and appropriate for today's treatment. OBJECTIVE: ACCESS: RIJ; performed well VITALS: Vital Signs Treatment Parameters: Pre Treatment BP: 129/89 BP Location: Right arm BP Method: Automatic Temp: 36.9 ??C (98.5 ??F) Temp Source: Oral Heart Rate: 92 Heart Rate Source: Monitor Resp: 18 SpO2: 98 % Height: 182.9 cm (6') Weight: 78.4 kg (172 lb 13.5 oz) LABS: CBC: No results found for: WBC , RBC , HGB , HCT , PLT , MCV , MCH , MCHC , RDW , MPV , NRBC Hemoglobin Eval with Reflex to Electophoresis and/or RBC Solubility: No results found for: HGBA , HGBA2 , HGBFQUANT , HGBSI , HGBC , HGBEQUAN , HGBO , HGBIE , SICELLSORFLX , HGBCAPELRFLX ASSESSMENT & PLAN: Moshe Maddox is a 29 y.o. male with sickle cell disease undergoing therapeutic erythrocytapheresis (red cell exchange) Mr. Maddox developed stabbing and shooting back pain from his lower back up to the bottom of his head within minutes of starting the first unit. He also developed severe chills and generalized itchingwithout hives. He explained he's had similar reactions in the past, Benadryl helps the most. After administering more benadryl, oxycodone, zofran, and a 250mL saline bolus he began to feel better butstill had mild to moderate symptoms. Dr. Fitzgerald saw patient as well and gave several recommendations for premedications including 50mg IV benadryl, 20mg pepcid, 40mg IV methylprednisolone, and 1g tylenol. I have updated the treatment plan accordingly. I ordered a transfusion reaction workup as wellwhich was negative for hemolysis, most consistent with a combination of FNHTR, allergic, and underlying disease. The procedure was aborted and we will reschedule for next week with plan for additional premeds. Mr. Maddox's pain symptoms persisted despite pain meds and he slowly developed a temperature up to 101 by 16:02. The procedure had been terminated around 12. He was advised to go to the ED. I saw and assessed this patient during today's procedure. Replacement Fluid: Red Blood Cells ACCESS: RIJ Plan: We will continue to see this patient for therapeutic erythrocytapheresis procedures as indicated by the referring physician. Minor alterations in such parameters as blood pressure and mild hypocalcemia (citrate effect) will be corrected by our standard responses to such changes. You or a member of your team will be contacted about other mild to moderate changes requiring your attention. If changes appear to be serious we will initiate a rapid response or code call for care. Electronically Signed Sundeep Flynn MD Transfusion Medicine Attending Office: [phone] * Progress Notes - Osito Topete, RN - 10/19/2024 8:00 AM EDT APHERESIS NURSING/PROCEDURALIST NOTE Procedure: Red blood cell exchange Access: right dual vortex port Replacement Fluid: red blood cells Consent for the apheresis procedure (and for blood products, if applicable) was obtained by Dr. Flynn prior to today's procedure. Dr. Flynn saw the patient during the procedure. The procedure was aborted after 6 minutes due to patient complaining of severe, sharp pain in legs,back, neck and head and itching. Procedure was aborted after being seen by 'giovany Electronically SignedOsito RN documented in this encounter Plan of Treatment Upcoming Encounters Date Type Department Care Team (Late st Contact Info) Description 12/19/2024 8:00 AM EDT Office Visit [facility] Vascular Interventional Radiology [address] [facility] [address] [place] [address] 12/25/2024 1:30 PM EDT Appointment [facility] Interventional Radiology [address] [place] [address] documented as of this encounter Procedures Procedure Name Priority Date/Time Associated Diagnosis Comments TRANSFUSION REACTION, PATHOLOGIST INTERPRETATION Routine 10/19/2024 1:26 PM EDT Sickle cell disease with crisis (CMS/HCC) TRANSFUSION REACTION INVESTIGATION Routine 10/19/2024 1:26 PM EDT Sickle cell disease with crisis (CMS/HCC) TRANSFUSE RED BLOOD CELLS Routine 10/19/2024 11:52 AM EDT Sickle cell disease with crisis (CMS/HCC) HEMOGLOBIN EVAL W RFLX TO ELECTROPHORESIS AND/OR RBC SOLUBILITY (SO) Routine 10/19/2024 9:46 AM EDT Sickle cell disease with crisis (CMS/HCC) ABO/RH DISCREPANCY STAT 10/19/2024 9: 46 AM EDT Sickle cell disease with crisis (CMS/HCC) IONIZED CALCIUM, SERUM Timed 9:46 AM EDT Sickle cell disease with crisis (CMS/HCC) CBC W/O DIFFERENTIAL STAT 10/19/2024 9:46 AM EDT Sickle cell disease with crisis (CMS/HCC) TYPE AND SCREEN STAT 10/19/2024 9:46 AM EDT Sickle cell disease with crisis (CMS/HCC) PREPARE RBC Routine 10/19/2024 9:16 AM EDT Sickle cell disease with crisis (CMS/HCC) documented in this encounter Results * Transfuse RBC, Sickle Cell (Hgb S) Negative (10/19/2024 5:23 PM EDT) Parth Jaquez MD BLOOD TRANSFUSION ORDERABLE S Final Result * Transfusion Reaction, Pathologist Interpretation (10/19/2024 1:26 PM EDT) Clinical Diagnosis, Transfusion Reaction Sickle cell disease 10/22/2024 9:29 AM EDT BLOOD BANK Interpretation , Transfusion Reaction 29 y.o. 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 He presented outpatient apheresis unit for RBC exchange for Category I, Grade 1A indication (stroke prophylaxis). During half of the first unit of RBCs (Unit O+/ Neg for C, E, K, and HgbS), developed chills, shooting low back pain, generalized itching without hives. Pre-vital BP 136/91, BT 98.5 F, HR 87, RR 22 Post-vital BP 155/102, BT 100.4 F, HR 119, RR 22 Transfusion was stopped and IV Benadryl was given, however, symptoms did not resolve. Clerical Check: No errors, no hemolysis, and negative direct antiglobulin testing. There is no laboratory evidence of acute hemolytic transfusion reaction. Culture of the unit is negative to date. Classification: Febrile-Nonhemoly tic Transfusion Reaction (FNHTR) and Allergic Reaction Case Definition: Probable Severity: Non-severe Imputability: Probable Interpretation: FNHTR is caused by recipient antibodies directed against donor antigens. They may also be caused by preformed cytokines that have accumulated in blood products (despite leukoreduction). Presenting symptoms may include fever or chills/rigors. FNHTR may be treated with antipyretics such as acetaminophen. Consider meperidine for treating steroid-refractor y rigors. Allergic reactions are caused by preformed antibodies in the patient reacting with plasma proteins or other allergens in the blood product, resulting in mucocutaneous signs and symptoms including urticaria, pruritus, localized angioedema, and edema of the conjunctiva, lips, tongue, and uvula. These minor reactions may be treated with antihistamines and/or steroids. Note: TRALI investigation not indicated. REFERENCES Michael M, Renny C, Alysa M. The Blood Group Antigen Factsbook. 3rd ed. [place], [place]: Elsevier; 2012. National Healthcare Safety Network Biovigilance Component. Hemovigilance Module Surveillance Protocol. Version 2.9. [place], [place]: Centers for Disease Control; May 2024. A resident was involved in the service. I attest I examined the relevant preparations for the specimens and confirmed the diagnosis or interpretation. No defined reference value 10/22/2024 9:29 AM EDT BLOOD BANK Pathologist Signature, Transfusion Reaction Reviewed by: Sundeep Flynn MD 10/22/2024 9:29 AM EDT BLOOD BANK Blood Venous blood specimen / Unknown Venipuncture / Unknown 10/19/2024 1:26 PM EDT 10/19/2024 2:00 PM EDT us Sundeep Flynn MD LAB BLOOD BANK TEST ORDERAB LES Final Result BLOOD BANK [address] [place] [address], * Transfusion Reaction Investigation (10/19/2024 1:26 PM EDT) Pre-Transfusion Hemolysis No Visible Hemolysis 10/18/2024 8:00 PM EDT BLOOD BANK Post-Transfusion Hemolysis No Visible Hemolysis 10/18/2024 8:00 PM EDT BLOOD BANK Post Specimen ABO/Rh O Positive 10/18/2024 8:00 PM EDT BLOOD BANK Comment:Patient types mixed field due to transfused cells SOURAV, Polyspecific Negative 025 8:00 PM EDT BLOOD BANK Clerical Check Clerical Check OK 10/18/2024 8:00 PM EDT BLOOD BANK RN Clerical Check Not Applicable 10/18/2024 8:00 PM EDT BLOOD BANK Unit Number & Component Type See Comment 10/18/2024 8:00 PM EDT BLOOD BANK Comment:[id number] LR HbS Negative O Positive RBC negative for C, E, K. Donor Unit Culture Sent for Culture 10/18/2024 8:00 PM EDT BLOOD BANK Comment:DR. FLYNN WANTS T HE UNIT CULTURED. Pathologist Notification See Comment 10/18/2024 8:00 PM EDT BLOOD BANK Comment:NOTIFIED GASTON [facility] MD AT 1440 VIA SECURE CHAT Signs and Symptoms Chills Other(s) No defined reference value 10/18/2024 8:00 PM EDT BLOOD BANK Pathologist Interpretation and Classification 10/18/2024 8:00 PM EDT BLOOD BANK Blood Venous blood specimen / Unknown Venipuncture / Unknown 10/19/2024 1:26 PM EDT 10/19/2024 2:00 PM EDT us Sundeep Flynn MD LAB BLOOD BANK TEST ORDERAB LES Edited Result - Final BLOOD BANK [address] [place] [address], * ABO/Rh Type (10/19/2024 9:46 AM EDT) ABO/Rh O Positive 10/19/2024 10:44 AM EDT BLOOD BANK Comment:Patient types mixed field due to transfused cells 1 ONEG RBC TRANSFUSED 10/04/24 Blood Blood sample taken from central line / Unknown (Port) Long-term Catheter / Unknown 10/19/2024 9:46 AM EDT 10/19/2024 10:09 AM EDT us Sundeep Flynn MD LAB BLOOD BANK TEST ORDERAB LES Final Result Performing Organization Address City/[facility]/ZIP Co de Phone Number BLOOD BANK [address] [place] [address], * Ionized calcium, serum (10/19/2024 9:46 AM EDT) [facility] Ionized Calcium, Serum 4.9 4.6 - 5.3 mg/dL LAB HEMATOLOGY METHOD 10/19/2024 11:02 AM EDT [facility] Blood Blood sample taken from central line / Unknown Venipuncture / Unknown 10/19/2024 9:46 AM EDT 10/19/2024 10:24 AM EDT Parth Jaquez MD LAB BLOOD ORDERABLES Final Result Performing Organization Address City/[facility]/ZIP Co de Phone Number [facility] [address] [place] [address] * (ABNORMAL) Hemoglobin Eval w Rflx to Electrophoresis and/or RBC Solubility (SO) (10/19/2024 9:46 AMEDT) [facility] Hemoglobin A 71.9(L) 95.0 - 97.9 % 10/21/2024 5:23 PM EDT [facility] ([facility]) Hemoglobin A2 2.6 2.0 - 3.5 % 10/21/2024 5:23 PM EDT [facility] ([facility]) Hemoglobin F 2.1 0.0 - 2.1 % 10/21/2024 5:23 PM EDT [facility] ([facility]) Hemoglobin S 23.4(H) 0.0 - 0.0 % 10/21/2024 5:23 PM EDT [facility] ([facility]) Hemoglobin C 0.0 0.0 - 0.0 % 10/21/2024 5:23 PM EDT [facility] ([facility]) Hemoglobin E 0.0 0.0 - 0.0 % 10/21/2024 5:23 PM EDT [facility] ([facility]) Hemoglobin Other 0.0 0.0 - 0.0 % 10/21/2024 5:23 PM EDT [facility] Hemoglobin Evaluation See Note 10/21/2024 5:23 PM EDT [facility] ([facility]) Sickle Cell Solubility Reflex Conf Previous 10/21/2024 5:23 PM EDT [facility] Hgb Capillary Electrophoresis Reflex Not Performed 10/21/2024 5:23 PM EDT [facility] ([facility]) Blood Blood sample taken from central line / Unknown Venipuncture / Unknown 10/19/2024 9:46 AM EDT 10/19/2024 10:24 AM EDT Narrative [facility] ([facility]) - 10/21/2024 5:23 PM EDT Impression: Hb S present Laboratory findings demonstrate the presence of Hb S. The percentage of Hb S in heterozygous Hb S (trait) ranges from 35-40% and is typically an asymptomatic condition. Homozygous Hb S (Hb SS) has predominantly Hb S without Hb A and is characterized by red blood cell sickling, severe hemolytic anemia, vaso-occlusive crisis, and other significant clinical manifestations. Lower values of Hb S can be seen in compound heterozygous conditions for Hb S and alpha thalassemia. Hb S/alpha thalassemia is typically asymptomatic and associated with microcytosis. If clinically indicated, molecular confirmation by Alpha Globin (HBA1 and HBA2) Deletion/Duplication ([employer] test #[id number]) should be considered. Hb S/beta-plus thalassemia is typically characterized by more Hb S than Hb A with the presence of microcytosis. If microcytosis is present and Hb S/beta-plus thalassemia is suspected, Beta Globin (HBB) Sequencing ([employer] test #[id number]) is suggested. Hemoglobin analysis should be offered to the patient's family members to assess carrier status. Please correlate clinically and in the context of recent transfusion history. INTERPRETIVE INFORMATION: Hemoglobin Evaluation, with Reflex to Electrophoresis and/or RBC Solubility This test was developed and its performance characteristics determined by [facility]. It has not been cleared or approved by the U.S. Food and Drug Administration. This test was performed in a CLIA-certified laboratory and is intended for clinical purposes. INTERPRETIVE INFORMATION: Sickle Cell Solubility Reflex Not Performed: Solubility testing for Hemoglobin S not indicated. Positive: Positive for Hemoglobin S by HPLC and confirmed by solubility testing. Additional charges apply. Conf Previous: Positive for Hemoglobin S by HPLC. Solubility testing performed previously and not repeated with this submission. INTERPRETIVE INFORMATION: Hgb Capillary Electrophoresis Reflex Not Performed: Confirmation by Capillary Electrophoresis not indicated. Performed: Results confirmed by Capillary Electrophoresis. Additional charges apply. Conf Previous: Capillary Electrophoresis confirmation performed as part of a previous submission. Confirmation not repeated with this submission. Performed By: [facility] [address] [place] [address] Operations And Maintenance Supervisor: Anthony Monterroso MD, PhD CLIA Number: [id number] us Parth Jaquez MD LAB REF LAB BLOOD AND FLUID ORD Final Result [facility] ([facility]) [address] [place] [id number] * (ABNORMAL) CBC W/O Differential (10/19/2024 9:46 AM EDT) WBC Count 15.42(H) 3.70 - 10.30 10*3/uL LAB HEMATOLOGY METHOD 10/19/2024 10:54 AM EDT [facility] RBC Count 2.59(L) 4.60 - 6.10 10*6/uL LAB HEMATOLOGY METHOD 10/19/2024 10:54 AM EDT [facility] HGB 7.6(L) 13.7 - 17.5 g/dL LAB HEMATOLOGY METHOD 10/19/2024 10:54 AM EDT [facility] HCT 22.5(L) 40.0 - 51.0 % LAB HEMATOLOGY METHOD 10/19/2024 10:54 AM EDT [facility] Platelet Count 528(H) 155 - 369 10*3/uL LAB HEMATOLOGY METHOD 10/19/2024 10:54 AM EDT [facility] MCV 87 79 - 98 fL LAB HEMATOLOGY METHOD 10/19/2024 10:54 AM EDT [facility] MCH 29.3 26.0 - 32.0 pg LAB HEMATOLOGY METHOD 10/19/2024 10:54 AM EDT [facility] MCHC 33.8 30.7 - 35.5 g/dL LAB HEMATOLOGY METHOD 10/19/2024 10:54 AM EDT [facility] RDW 18.6(H) 11.5 - 14.5 % LAB HEMATOLOGY METHOD 10/19/2024 10:54 AM EDT [facility] MPV 8.7(L) 8.8 - 12.5 fL LAB HEMATOLOGY METHOD 10/19/2024 10:54 AM EDT [facility] nRBC 0.5(H) <=0.0 per 100 WBCs LAB HEMATOLOGY METHOD 10/19/2024 10:54 AM EDT [facility] Blood Blood sample taken from central line / Unknown Venipuncture / Unknown 10/19/2024 9:46 AM EDT 10/19/2024 10:24 AM EDT Parth Jaquez MD LAB BLOOD ORDERABLES Final Result [facility] [address] [place] [address] * Type and screen (10/19/2024 9:46 AM EDT) Antibody Screen Negative 10/18/2024 8:00 PM EDT BLOOD BANK Specimen Expiration 10/22/2024 23:59 10/18/2024 8:00 PM EDT BLOOD BANK Blood Blood sample taken from central line / Unknown (Port) Long-term Catheter / Unknown 10/19/2024 9:46 AM EDT 10/19/2024 10:09 AM EDT Sundeep Flynn MD LAB BLOOD BANK TEST ORDERAB LES Final Result BLOOD BANK [address] [place] [address], * Prepare Leukocyte Reduced RBC: 10 Units, Sickle Cell (Hgb S) Negative, Leukocyte reduced (CMV reduced risk) (10/19/2024 9:16 AM EDT) Product Code M0776S03 BLOO D BANK Dispense Status Released BLOOD BANK Blood Expiration Date [id number] BLOOD BANK Unit Number [id number] B LOOD BANK Product Blood Type 5100 CH BLOOD BANK Blood Type O+ CH BLOOD BANK Crossmatch Compatible CH BLOOD BANK Product Code [id number] BLOO D BANK Dispense Status Released BLOOD BANK Blood Expiration Date [id number] BLOOD BANK Unit Number [id number] CH B LOOD BANK Product Blood Type 5100 CH BLOOD BANK Blood Type O+ CH BLOOD BANK Crossmatch Compatible CH BLOOD BANK Product Code [id number] BLOO D BANK Dispense Status Released BLOOD BANK Blood Expiration Date [id number] BLOOD BANK Unit Number [id number] CH B LOOD BANK Product Blood Type 5100 CH BLOOD BANK Blood Type O+ CH BLOOD BANK Crossmatch Compatible CH BLOOD BANK Product Code [id number] BLOO D BANK Dispense Status Transfused CH BLOOD BANK Blood Expiration Date [id number] BLOOD BANK Unit Number [id number] CH B LOOD BANK Product Blood Type 5100 CH BLOOD BANK Blood Type O+ CH BLOOD BANK Crossmatch Compatible CH BLOOD BANK Product Code [id number] BLOO D BANK Dispense Status Released BLOOD BANK Blood Expiration Date [id number] BLOOD BANK Unit Number [id number] CH B LOOD BANK Product Blood Type 5100 CH BLOOD BANK Blood Type O+ CH BLOOD BANK Crossmatch Compatible CH BLOOD BANK Product Code [id number] BLOO D BANK Dispense Status Released BLOOD BANK Blood Expiration Date [id number] BLOOD BANK Unit Number [id number] CH B LOOD BANK Product Blood Type 5100 CH BLOOD BANK Blood Type O+ CH BLOOD BANK Crossmatch Compatible CH BLOOD BANK Product Code [id number] BLOO D BANK Dispense Status Released BLOOD BANK Blood Expiration Date [id number] CH BLOOD BANK Unit Number [id number] CH B LOOD BANK Product Blood Type 5100 CH BLOOD BANK Blood Type O+ CH BLOOD BANK Crossmatch Compatible CH BLOOD BANK Product Code [id number] BLOO D BANK Dispense Status Transfused CH BLOOD BANK Blood Expiration Date [id number] CH BLOOD BANK Unit Number [id number] CH B LOOD BANK Product Blood Type 5100 CH BLOOD BANK Blood Type O+ CH BLOOD BANK Crossmatch Compatible CH BLOOD BANK Product Code [id number] CH BLOO D BANK Dispense Status Released CH BLOOD BANK Blood Expiration Date [id number] CH BLOOD BANK Unit Number [id number] CH B LOOD BANK Product Blood Type 5100 CH BLOOD BANK Blood Type O+ CH BLOOD BANK Crossmatch Compatible CH BLOOD BANK Product Code [id number] CH BLOO D BANK Dispense Status Released BLOOD BANK Blood Expiration Date [id number] CH BLOOD BANK Unit Number [id number] CH B LOOD BANK Product Blood Type 5100 CH BLOOD BANK Blood Type O+ CH BLOOD BANK Crossmatch Compatible CH BLOOD BANK Other us Parth Jaquez MD BLOOD BANK PRODUCT ORDERABL ES Edited Result - Final BLOOD BANK [address] [place] [address], documented in this encounter Visit Diagnoses Diagnosis Sickle cell disease with crisis (CMS/HCC)- Primary documented in this encounter Administered Medications Inactive Administered Medications - up to 3 most recent administrations Medication Order MAR Action Action Date Dose Rate Site acetaminophen (Tylenol) tablet 650 mg 650 mg, Oral, Once as needed, Starting on Tue10/19/24 at 0915, Until Tue10/20/24 at 0036, Routine, For febrile reactionIndications:Sickle cell disease with crisis (CMS/HCC) Given 10/19/2024 11:21 AM EDT 650 mg diphenhydrAMINE (Benadryl) 50 MG/ML injection - Pyxis Override Pull 1 dose, Starting on Tue10/19/24 at 1206, Until Tue10/19/24 at 1430 Given 10/19/2024 2:30 PM EDT 50 mg diphenhydrAMINE (Benadryl) 50 MG/ML injection - Pyxis Override Pull 1 dose, Starting on Tue10/19/24 at 1425, Until Tue10/19/24 at 1726 Given 10/19/2024 5:26 PM EDT diphenhydrAMINE (Benadryl) injection 50 mg 50 mg, Intravenous, Once as needed, 1 dose, Starting on Tue10/19/24 at 1204, Until Tue10/19/24 at 1223, Routine, For flushing, rash, fever, shortness of breath during infusionIndications:Sickle cell disease with crisis (CMS/HCC) Given 10/19/2024 12:23 PM EDT 50 mg famotidine (Pepcid) tablet 20 mg 20 mg, Oral, Daily PRN, Starting on Tue10/19/24 at 1016, Until 10/20/24 at 0036, Routine, indigestion, heartburnIndications:Sickl e cell disease with crisis (CMS/HCC) Given 10/19/2024 11:21 AM EDT 20 mg lidocaine (Anecream) 4 % cream 1 Application Topical, As needed, Starting on Tue10/19/24 at 0915, Until 10/20/24 at 0036, Routine, venipuncture or iv insertionIndications:Sickl e cell disease with crisis (CMS/HCC) Given 10/19/2024 5:29 PM EDT 1 Application ondansetron ODT (Zofran-ODT) disintegrating tablet 8 mg 8 mg, Oral, Every 8 hours PRN, Starting on Tue10/19/24 at 1204, Until 10/20/24 at 0036, Routine, nausea, vomitingIndications:Sickle cell disease with crisis (CMS/HCC) Given 10/19/2024 1:06 PM EDT 8 mg oxyCODONE (Roxicodone) immediate release tablet 30 mg 30 mg, Oral, Once, 1 dose, On Tue10/19/24 at 1330, Routine Given 10/19/2024 1:17 PM EDT 30 mg sodium chloride 0.9 % bolus 250 mL 250 mL, Intravenous, Once, 1 dose, On Tue10/19/24 at 1230, Administer over 15 Minutes, RoutineIndications:Sickle cell disease with crisis (CMS/HCC) New Bag 10/19/2024 1:00 PM EDT 250 mL 1000 mL/hr sodium citrate anticoagulant 4 % flush 3 mL 3 mL, Intracatheter, As needed, 2 doses, Starting on Tue10/19/24 at 0915, Until Tue10/19/24 at 1632, Routine, line careIndications:Sickle cell disease with crisis (CMS/HCC) Given 10/19/2024 4:32 PM EDT 3 mL Given 10/19/2024 4:31 PM EDT 3 mL documented in this encounter Additional Health Concerns Infection Onset Date Last Indicated Resolved Time MRSA Comment:Added from external infection. Source: [facility]. 11/14/2023 10/20/2024 ESBL Comment:Added from external infection. Source: [facility]. 11/26/2023 08/18/2024 MDRO 08/22/2024 08/22/2024 Assessment Noted Time PHQ-9 Depression Total Score: 0 09/01/19 12:42 PM EDT A fall risk assessment has been complete d for the patient 09/27/2024 2:07 PM EDT A Body Mass Index follow-up plan has been documented for the patient 11/02/2024 2:26 PM EDT documented as of this encounter Care Teams Comic Writer Relationship Specialty Start Date End Date Favian Sandy DO [address] [facility] [address] [place] [address] PCP - General 07/05/24 Navya Man MD [address] [id number] Consulting Physician Hematology 09/28/24 Cathleen Pena LPN [facility] TCM Nurse 10/15/24 11/06/24 documented as of this encounter
--- OUTSIDE RECORDS SUMMARY | 2024-10-19 17:31 | XMS_ITS | Encounter Summary ---
Author Organization Healthcare Address [address] [place] [address] Care Team Providers Care Inclusion Intern Name Role Phone DuFavian Wilfrido [facility] Primary Care Provider [phone] Navya Man MD Unavailable Cathleen Pena LPN Unavailable Unavailabl e Phyllis Arango RN Unavailable Unavailab le Reason for Referral * Consultation (Routine) - Authorized Specialty Diagnoses / Procedures Referred By Contac t Referred To Contact Long-Term Facility Diagnoses Blood transfusion reaction, initial encounter Saw Solano MD [address] [place] [phone] Phone: tel: fax: Referral ID Status Reason Start Date Expiration Date V isits Requested Visits Authorized [id number] Authorized 11/02/2024 05/04/2026 1 1 Scheduling Instructions Please Deaccess port on 11/09/2024 after IV Abx. * Home Health (Routine) - Authorized Specialty Diagnoses / Procedures Referred By Contac t Referred To Contact Home Health Services Diagnoses Blood transfusion reaction, initial encounter Saw Solano MD [address] [place] [phone] Phone: tel: fax: Referral ID Status Reason Start Date Expiration Date Visits Requested Visits Authorized [id number] Authorized Specialty Services Required 11/02/2024 05/04/2026 999 999 * Consultation (Routine) - Authorized Specialty Diagnoses / Procedures Referred By Contac t Referred To Contact Gastroenterology Diagnoses Blood transfusion reaction, initial encounter Saw Solano MD [address] [place] [address] Phone: tel: fax: Referral ID Status Reason Start Date Expiration Date Visits Requested Visits Authorized [id number] Authorized Specialty Services Required 10/28/2024 04/29/2026 1 1 Scheduling Instructions HCV! Reason for Visit * Reason Comments Medication Reaction * Auth/Cert (Routine) Specialty Diagnoses / Procedures Referred By Contac t Referred To Contact Diagnoses Sickle cell pain crisis (CMS/HCC) Blood transfusion reaction, initial encounter Lazaro Cortez MD [address] [place], [place] [phone] Phone: tel: fax: [facility] [address] [place] [phone] Referral ID Status Reason Start Date Expiration Date Visits Re quested Visits Authorized [id number] 1 1 Encounter Details Date Type Department Care Team (Latest Contact Info) Description 10/19/2024 5:31 PM EDT - 11/02/2024 4:00 PM EDT Hospital Encounter [facility] [address] [place] [address] Channing Wilson MD [address] [place] [address] Lazaro Cortez MD [address] [place] [phone] Michael Andrade MD [address] [place] [phone] Saw Solano MD [address] [place] [phone] Blood transfusion reaction, initial encounter (Primary Dx); Sickle cell pain crisis (CMS/HCC) Discharge Disposition: Home or Self Care Social History Tobacco Use Types Packs/Day Years Used Date Smoking Tobacco: Former Cigarettes 0.3 3 2 013 - 2015 Passive Smoke Exposure: Past Smokeless Tobacco: Never [...] any time in the past [facility], were you homeless or living in a nursing home (including now)? No 10/23/2024 CAGE ASSESSMENT Answer [...] drink first t geri in the morning (EYE-TALEND DEVELOPER) to steady your nerves or to get rid of a hangover? 0 10/20/2024 CAGE Questionnaire Score 0 025 Utilities Answer Date Recorded In the past 12 months has th e electric, gas, oil, or water company threatened to shut off services in your home? No 10/23/2024 Sex and Gender Information Value Date Recorded Sex Assigned at Male 03/16/2024 2:12 PM EST Legal Sex Male 7:40 PM EDT Gender Identity Not on file Sexual Orientation Not on file documented as of this encounter Last Filed Vital Signs Vital Sign Reading Time Taken Comments Blood Pressure 146/86 11/02/2024 11:37 AM EDT Pulse 98 11/02/2024 11:37 AM EDT Temperature 37.2 C (98.9 F) 11/02/2024 11:37 AM EDT Respiratory Rate 16 11/02/2024 11:37 AM EDT Oxygen Saturation 98% 11/02/2024 11:37 AM EDT Inhaled Oxygen Concentration - - Weight 80 kg (176 lb 5.9 oz) 10/29/2024 6:00 AM EDT Height 182.9 cm (6') 10/19/2024 4:56 PM EDT Body Mass Index 23.92 10/19/2024 4:56 PM EDT documented in this encounter Functional Status [...] No 11/02/2024 7:48 AM EDT Maurice Cardozo RN 6. Suicidal Behavior (Lifetime) No 7:48 AM EDT Maurice Cardozo, RN documented as of this encounter [...] a day. 60 capsule 3 09/28/2024 5 oxyCODONE (Roxicodone) 30 MG immediate release tablet Take 1 tablet by mouth every 6 hours as needed for severe pain. 20 tablet 10/31/2024 5 documented as of this encounter Miscellaneous Notes * Care Plan - Maurice Cardozo RN - 11/02/2024 4:00 PM EDT VSS, patient alert and oriented x3, and patient pain managed with pain medications. Patient had adequate intake and output, no new symptoms, and was free from falls prior to discharge. RN re accessedport and applied new dressing before discharge, AVS was signed and went through with the patient, and an educator came to the bedside and educated the patient on how to administer at home medicationsvia the port. Patient left the floor with all personal belongings and had a ride waiting at the entrance for him, patient left the floor walking and on the elevator. Problem: Adult Inpatient Plan of Care Goal: Plan of Care Review Outcome: Met Goal: Patient-Specific Goal (Individualized) Outcome: Met Goal: Absence of Hospital-Acquired Illness or Injury Outcome: Met Goal: Optimal Comfort and Wellbeing Outcome: Met Problem: Infection Goal: Absence of Infection Signs and Symptoms Outcome: Met Problem: Pain Acute Goal: Optimal Pain Control and Function Outcome: Met Problem: Sickle Cell Disease Goal: Optimal Cerebral Tissue Perfusion Outcome: Met Goal: Optimal Coping with Sickle Cell Disease Outcome: Met Goal: Effective Tissue Perfusion Outcome: Met Goal: Absence of Infection Signs and Symptoms Outcome: Met Goal: Optimal Pain Control and Function Outcome: Met Goal: Optimal Oxygenation Outcome: Met Problem: Fall Injury Risk Goal: Absence of Fall and Fall-Related Injury Outcome: Met * Progress Notes - Georgina Luna - 11/02/2024 1:39 PM EDT Case Management Discharge Note Mesamariel Maddox 29 y.o. male CSN: [id number] Admission: 10/19/2024 5:31 PM Primary Problem: Blood transfusion reaction, initial encounter Primary Laundry Marker Supervisor: Primary Caregiver: Self Fiance to assist as needed- Howard Duran to provide bedside teach to both patient and his fiance. Assistance Available at Discharge: Availability of Care Givers (#Hours): Other (comment) (Fiance available to assist as needed.) Family/Laundry Marker Supervisor(s) Willingness Assessed to care for patient at home: Yes Housing Circumstances-Z Codes: Housing Circumstances (select all that apply): Low Income (101-300% Federal Poverty Guidlines) - Z596 (Patient lives with mother, unable to complete FPG form at this time. Patient unsure of mother's income. Patient gets $644 SSDI, and $200 Food [place].) Patient Referred to Financial or Community Resources: N/A Discharge Facility/Level of Care Needs: Discharge Facility/Level of Care Needs: 1-Home or Self Care Patient's Choice of Community Agency(s): [facility] Patient/Family Anticipated Services at Transition: Patient/Family Anticipated Services at Transition: other (see comments) ([facility]- Labs/Port Care) DME/Equipment Needed after Discharge: Equipment Currently Used at Home: none Equipment Needed After Discharge: other (see comments) (IV meds/supplies provided by [facility]- to be delivered to bedside prior to discharge today 11/02/2024) Readmission Within the Last 30 Days: Readmission Within the Last 30 Days: previous discharge plan unsuccessful Medicare Documentation: Medicare Second Notice?: No Follow-up: Favian Sandy, DO [address] [place] [address] Schedule an appointment as soon as possible for a visit [facility] # [phone] Apptment 11/09/24 @ 12noon Go on 11/09/2024 Scheduled appointment for Labs and Port Care Antimicrobial Regimen: Antimicrobials (including doses): Vanco (pharmacy to dose) Start date: 10/26/24 Projected End Date: 11/09/24 Transition to oral therapy: No If yes, antimicrobial (with dose/end dates): Future Imaging: None Lab Monitoring (weekly, preferably on Mondays unless otherwise specified): CBC w/ differential *CRP for patients with bone/joint infections and endocarditis or endovascular infections Antimicrobial specific labs: Vancomycin: BUN, SrCr, and vancomycin level (random if continuous, trough if intermittent) Please fax all labs to: [facility] OPAT Team Attn: Jagdish Fax #: [phone] Discharge Transportation: Transportation Anticipated: car, drives self Transportation Home at Discharge: Family/Friend will Provide Has discharge transport been arranged?: Yes What day is the transport expected?: 11/02/24 What time is the transport expected?: 1430 Follow Up Transport: Transportation Needed to Follow up Appoinments: Family/Friend will Provide/ Self Additional Comments: Per MD patient is medically ready for discharge on this date. Patient is standard OPAT candidate. Going home on IV ABX. Howard Duran to provide bedside teaching dorinda and his fiance today. Per Reyna, IV med/supplies to be delivered to bedside around 2:30 pm today. CM faxed DC Summary and Order to [facility], ATTN; Linda at f: [phone]. No other d/c needs at this time. CM will continue to follow and assist with any d/c needs as they arise. Addendum 1500: ZOIE called and spoke with Linda Jj, she said received order and dc summary, but asking if they need to discontinue access port. CM sent secure chat to and he stated using port for Vanco and don't need to discontinue, it will be done as outpatient. Linda requestedorder to de-access port on 11/09. Also requested port access be changed today, normally changed every7 dasy. CM spoke to bedside nurse and she stated she will de-access current and reaccess port and do change dressing prior to discharge. CM faxed order to Infusion center, and will continue to followuntil discharged. Addendum 1525: Reyna Hoover, informed me that she was unable to provide education to patient's fiance, she got up and left prior to providing instruction, stated fidebora said she didn't want to be here, but when asked if she would help with his infusions when he was home, said yes, but left room wi thout instructions. Reyna was able to provide teaching to patient and stated patient was able to do everything without difficulty, demonstrated and verbalized understanding. Supplies delivered to room. Georgina Luna * Progress Notes - Georgina Luna - 11/02/2024 8:57 AM EDT Case Management Adult Progress Note Moshe Maddox 29 y.o. male CSN: [id number] Admission: 10/19/2024 5:31 PM Primary Problem: Blood transfusion reaction, initial encounter Anticipated Discharge Date: TBD Has Discharge Plans Changed? No Medicare Second Notice: Medicare Medicare Second Notice?: No Additional Comments: CM received secure chat from Wilman Duran, and was informed that there's an issue with his insurance, locked into select pharmacies only, and that patient will need to call his insurance company to have [facility]. Reyna informed me that she will call patient and will instruct him, she stated unsure if this will be resolved today. CM will continue to follow. Addendum 9:25 am: CM left VM with Mackenzie Rikki (Significant Other) to return my call, wanted to update her of potential delay in discharge for today. Addendum 11:06 am: ZOIE received secure chat from Jing Fitzpatrick, Pump House Operator, she received approval from Dir Charles, for voucher for ABX. Per Reyna voucher will need to say name of Abx, $35 per day, plus drug replacement cost, and end date, and will need to be emailed to Reyna. ZOIE emailedVoucher #[id number] to Reyna- [facility] and to Gris Fitzpatrick, and also faxed to CM office. ZOIE called and updated Mackenzie (Significant other) and she plans to be here around 12:30 pm. Per Reyna she will do bedside teaching this afternoon and IV supplies will be delivered around 2:30 pm Georgina Luna * Discharge Summary - Saw Solano MD - 11/02/2024 6:56 AM EDT Hospitalization Admit Date/Time: 10/19/2024 5:31 PM Admitting Attending: Lazaro Cortez Discharge Date: 11/02/24 Discharge Attending Physician: Saw Solano MD PCP name and Address: Favian Sandy, [address] [place] [address] / [place] [address] Referring provider name and address: No referring provider defined for this encounter. Chief Concern, Brief History of Present Illness, and Hospital Course Moshe Maddox is a 29 y.o. 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 Patient premedicated prior to initiation of 1st unit for exchange with acetaminophen and famotidine. Patient reports within 4-6 minutes after starting the acute onset of chills, palpitations, diffuseitching, and severe sharp LBP radiating up into his neck .Transfusion was stopped and diphenhydramine along with home oxycodone and 250ml NS bolus given. Symptoms persisted with 9/10 back pain and temp up to 101F, thus brought to ER for evaluation. Febrile in ED to 102.4F, tachy 100's, other VSS. Labs pertinent for WBC 32.9, Hgb stable at 7, retic count 227.3, INR 1.4, LDH 1,369. CXR no acute findings. Transfusion reaction and BCX collected. Hem advised admit for pain control and further infectious work-up. 10/20/2024: No acute events overnight. 10/21/2024: No acute events overnight. 10/22/2024: No acute events overnight. As per ID, Ideally, we would recommend removing the port. Ptunderstands standard of care would be to remove the port but would not like to have the port removed at this point. If the port is going to remain, we would recommend delivering abx through it. If ptcontinues to be bacteremic, then the port should be removed. DC Rocephin ceftriaxone, continue Vancomycin. Echocardiogram. Panorex shows Evaluation of the central structures are significantly limitedby motion. Within limits of the motion degraded study, there is no apparent dental caries or definite evidence of periapical abscess. 10/23/2024: No adverse events noted overnight. Echocardiogram is still pending. Pt is adamant aboutnot having his port pulled. He is an extremely difficult stick. Patient states that he is will not consent to having the port removed even for a few days. He notes that he has NO veins and Vascular access has a tough time getting blood or an IV even with US guidance. Will attempt to get Blood Cultures tomorrow AM. At around 14 18 was notified by microbiology that the patient was growing Gram-positive cocci in clusters from the blood yesterday drawn at 5:18 a.m. infectious disease notified. Spoke with the patient who was very distraught feels he is not being treated adequately concerned about leaving against medical advice. Explained to the patient regarding the probability stroke myocardialinfarction and other events in the case patient chooses against medical advice. Patient understands. He is alert and oriented able to walk does have the capacity his own medical decision. At this time we will continue with vancomycin Interventional Radiology has also been consulted to have the port removed. Two sets of blood cultures 1 from the central line in 1 from the periphery has been ordered to be done stat. 10/24/2024: No adverse events noted overnight. Vitals reviewed labs reviewed this morning. White blood cell count of 9.97 hemoglobin of 8.1 grams/deciliter hematocrit of 23.5% with a platelet count of 382. Differential reviewed, WNL. Labs reviewed showing a downtrending procalcitonin as well as a downtrending ESR and CRP. Blood culture taken from left arm as well as from central line. Discussed with the patient and with Infectious Disease, the patient is adamant about not removing the port. Cancelled port removal. IR made aware. At this time we will monitor the patient cautiously, hematology reached out in regards to having a exchange transfusion we will hold off until the patient is stable. Continue with IV infusion. Patient continues to refuse PORT exchange. Patient is A&O x3 understands the risks and benefit he has capacity to make medical decisions at his own volition. 10/25/2024: No adverse events noted overnight. Vitals reviewed, blood pressure this morning is 151/97. Labs reviewed showing a white blood cell count 11.83 hemoglobin 7.3 grams/deciliter hematocrit 21.2% with a platelet count of 400 absolute neutrophil count of 6.61 with a monocyte 0.98 with absolute basophil count of 0.11. Sed rate is 18. Pt is lying in bed, he is feeling a little bit better today. 10/26/2024: No adverse events noted overnight. Vitals reviewed, blood pressure this morning is 152/103. Labs reviewed showing a white blood cell count 9.74 Hgb 7.6 g/dL, Hct 22.1% PLT 396. Differential notes Lymphocytes absolute 3.97, Monocytes absolute 0.90, Basophils 0.11, Immature Granulocyte 0.07. Electrolytes are notable for a PO4 of 4.6, Procalcitonin 0.72, CRP 15.0, ESR 19. Blood Culture from arm 10/24/2024 is positive for Gram + positive cocci. Continuing Vancomycin consider adding Teflaro ceftraoline for adjuvant therapy. Pt is lying in bed and immediately starts looking at his phonewhen this automatic typewriter inspector and case resolution specialist came into the room. 10/27/2024: No adverse events noted overnight. Vital signs, blood pressure is still elevated at 152/113 patient is still in a lot of pain. Labs are reviewed notable for a white blood cell count of 9.12 hemoglobin of 7.4 hematocrit of 21.8% with a platelet count of 388. Differential noted. Electrolytes within normal limits calcium of 8.4 phosphorus of 5.1 with a procalcitonin of 0.49 downtrending C-reactive protein of 12.5 and a sed rate 20. Patient continues to endorse severe pain feeling very crummy. New set of blood culture collected from the left a.c. this morning wound culture as well as blood culture from the port has been collected yesterday at 2:22 p.m.. Patient is stable still feeling very bad. Doesn't want to Decrease Dilaudid. 10/28/2024: No adverse events noted overnight. Vital signs, blood pressure this AM is 165/97. Pain is a little better. Will decreased Dilaudid to 1 mg IVP Q3h PRN and Oxycodone 40 mg PO Q4h PRN. 10/29/2024: No adverse events noted overnight. Vital signs, they are WNL. Labs are notable for WBC 10.45 Hgb 7.9 Hct 23.1% PLT 383. Differential reviewed. BMP reviewed Mag 1.8 PO4 4.7. Procalcitonin 0.28, CRP 8.1 ESR 26. Patient is still in pain, Had high BP given Nifedipine 30 mg XL PO at 0030. Magnesium repleted. Infectious Disease has signed off we will do IV vancomycin for 14 days ending on November 09202410/30/2024: No adverse events noted overnight. Vital signs has been reviewed limits this morning blood pressure is 136/81. Labs are notable for a white blood cell count 8.56 with a hemoglobin 7.5 grams/deciliter with a hematocrit 22.6% platelet count is 359. Differential is within normal limits at this time. ESR is 18. Patient is lying in bed still on IV Dilaudid no issues. We will decrease Dilaudid tomorrow. 10/31/2024: No adverse events noted overnight. Vital signs has been reviewed WNL this morning. BP was 145/98. Labs are notable for a white blood cell count 10.40 with a hemoglobin of 7.5 g/dL hematocrit of 22.8% platelet count is 366. Differential is within normal limits. Electrolytes has been reviewed magnesium is 1.8 mEq we will replete. No issues today. Plan to DC tomorrow or Tuesday pending OPAT. 11/01/2024: No adverse events noted overnight. Vital signs has been reviewed WNL, BP this AM was 144/79. Labs reviewed white blood cell count 8.72 with a hemoglobin 7.0 grams/deciliter hematocrit 21.4% platelet 316. Differential was reviewed within normal limits electrolytes are within normal limits phosphorus is 4.6 calcitonin in his 0.41 ESR is 9.7 sed rate is 30. Patient is stable, still endorsing pain but better controlled. Will DC tomorrow at 1500. 11/02/2024: No adverse events noted overnight. Vital signs reviewed within normal limits. Blood pressure is 118/58. We will discontinue opiates this morning. Labs reviewed white blood cell count 9.07 with a hemoglobin of 7.5 hematocrit count 314. Differential reviewed within normal limits. Patienthad 1 unit of packed red blood cells yesterday hemoglobin rising 8.1 grams/deciliter hematocrit of 24.1%. Electrolytes within normal limits except for magnesium 1.8 we will replete. Procalcitonin of 0.48 with an ESR 21 and a C-reactive protein of 7.7. Patient is stable otherwise okay for discharge today. Moshe Maddox is a 29 y/o Male with a known medical history of Sickle Cell Disease and Hepatitis C presents after fever first noticed after blood transfusion. Bacteremia: Blood cultures (/15) from Hand growing Streptococcus mitis/oralis group. Blood Cultures (8/15) from port growing Staphylococcus coagulase negative, MecA Positive. Panorex (10/22) showed: Evaluation of the central structures are significantly limited by motion. Within limits of the motion degraded study, there is no apparent dental caries or definite evidence of periapical abscess. Repeat blood cultures (10/22) are NGTD. Echocardiogram shows All cardiac valves were reasonably well interrogated with 2D imaging and/or Doppler assessment and no significant valve regurgitation or stenosis is seen. There is no definite echocardiographic evidence of endocarditis. Compared to the most recently available prior study, and allowing for differences in image quality and technique, there is no significant interval change noted. With left ventricular systolic function of 55-60%. Contacted Interventional Radiology, holding procedure to remove Port. At this time patient does not want his port removed. He has stated that is his only form of access that is he needs for the exchange transfusion. Thus he continues to refuse any IV line or IV placement. Infectious Disease made aware state itis patient's decision they can only inform him of their recommendation. Antibiotics (started 10/20/24)--Vanc (for Staph) thru the port Pharmacy to help DOSE, thank you Consider 14 days of ABX from the last negative Blood Culture thus we will and antibiotics on till November 09, 2024 Finished with lactated Ringer's that was going at 150 cc an hour Repeat Blood Culture. Sickle cell acute pain crisis & Sickle cell anemia: continue hydroxyurea 500mg BID, folic acid 1mg daily Pain control Stopped on the morning of DC, Hydromorphone 1 mg IV q3h PRN diphenhydramine 50 mg IV q4h PRN home oxycodone 40 mg q4h PRN diclofenac gel 4 g QID PRN acetaminophen 650 mg q8h PRN, methocarbamol 750mg QID PRN, lidoderm patch daily Bowel Regimen: senna 17.2 mg daily Hold off on any exchange transfusion until patient is stable. 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 HBV Surface Ag negative, Hep B core Total AB positive Hepatology follow-up at discharge Tobacco Use Disorder (Vapes) - he declined NRT FENGI: Regular DVT prophylaxis: Eliquis apixaban 5 mg PO BID GI prophylaxis: NONE Code status: Full Code Surgeries and Procedures Medication List .. acetaminophen 500 MG tablet Commonly known as: Tylenol Take 2 tablets by mouth every 8 hours as needed for pain. apixaban 5 MG tablet Commonly known as: Eliquis Take 1 tablet by mouth 2 times a day. deferasirox 500 MG dispersible tablet Commonly known as: Exjade Take 3 tablets by mouth daily before breakfast. Disperse tablets in water, orange juice, or apple juice (use 3.5 ounces for total doses less than1 g; 7 ounces for doses = 1 g). Stir, then drink entire contents. Rinse with more fluid; drink the rinse. diclofenac 1 % topical gel Commonly known as: Voltaren Place 4 g on the skin 4 times a day as needed (pain). Apply as directed to lower back folic acid 1 MG tablet Commonly known as: Folvite Take 1 tablet by mouth daily. hydroxyurea 500 MG capsule Commonly known as: Hydrea Take 1 capsule (500 mg total) by mouth 2 times a day. lidocaine 5 % patch Commonly known as: Lidoderm Apply 2 patches topically 1 (one) time each day at the same time over 12 hours. Remove & discard patch within 12 hours or as directed by MD. magnesium oxide 400 (240 Mg) MG tablet Commonly known as: Mag-Ox Take 1 tablet by mouth daily. methocarbamol 750 MG tablet Commonly known as: Robaxin Take 1 tablet by mouth 3 times a day as needed for muscle spasms. naloxone 4 mg/0.1 mL nasal spray Commonly known as: Narcan 1. Give 1 spray in nostril for no/slow breathing or cannot wake after opioid use 2. Call 911 3. Repeat in other nostril if symptoms continue NIFEdipine CC 30 MG 24 hr tablet Commonly known as: Adalat CC Take 1 tablet by mouth daily. Do not crush, chew, or split. oxyCODONE 30 MG immediate release tablet Commonly known as: Roxicodone Take 1 tablet by mouth every 6 hours as needed for severe pain. senna 8.6 MG tablet Commonly known as: Senokot Take 1 tablet by mouth daily. sodium chloride 0.9 % solution 500 mL with vancomycin 1 g reconstituted solution 2,500 mg continuous infusion 2,500 mg by Intravenous (Continuous Infusion) route 1 (one) time each day at the same time at 21.9 mL/hr over 24 hours for 9 days. Where to Get Your Medications These medications were sent to [address] [place], [place] [id number] naloxone 4 mg/0.1 mL nasal spray NIFEdipine CC 30 MG 24 hr tablet oxyCODONE 30 MG immediate release tablet You can get these medications from any pharmacy Bring a paper prescription for each of these medications sodium chloride 0.9 % solution 500 mL with vancomycin 1 g reconstituted solution 2,500 mg continuous infusion Discharge Diagnosis Medical Problems Active and Resolved Hospital Problems Hospital * (Principal) Blood transfusion reaction, initial encounter Post Discharge Instructions: PCP and Hepatology Outpatient Follow-Up Future Appointments Date Time Provider Department Center 11/06/2024 9:00 AM Darline Araiza APRN [facility] Jim 11/06/2024 10:30 AM [facility] GASTROENTEROLOGY FIBROSCAN G[facility]KYC [facility] 11/23/2024 1:30 PM [facility] 11/23/2024 2:00 PM [facility] Fitzgerald [facility] Test Results Pending At Discharge Pending Labs Order Current Status Additional Susceptibilities and/or Identification Collected (10/22/241653) Additional Susceptibilities and/or Identification Collected (10/22/241653) Blood Culture (Aerobic/Anaerobet Set) Preliminary result Blood Culture (Aerobic/Anaerobet Set) Preliminary result Prepare Leukocyte Reduced RBC Preliminary result Pertinent Physical Exam At Time of Discharge Physical Exam Vitals reviewed. Constitutional: Appearance: Normal appearance. HENT: Head: Normocephalic and atraumatic. Eyes: General: No scleral icterus. Extraocular Movements: Extraocular movements intact. Pupils: Pupils are equal, round, and reactive to light. Cardiovascular: Rate and Rhythm: Normal rate. Pulses: Normal pulses. Pulmonary: Effort: Pulmonary effort is normal. Abdominal: General: Abdomen is flat. There is no distension. Palpations: Abdomen is soft. Tenderness: There is no abdominal tenderness. Musculoskeletal: General: Normal range of motion. Right lower leg: No edema. Left lower leg: No edema. Skin: General: Skin is warm. Capillary Refill: Capillary refill takes less than 2 seconds. Neurological: General: No focal deficit present. Mental Status: He is alert and oriented to person, place, and time. Mental status is at baseline. Discharge Disposition/Condition Disposition: Home Condition: Stable (s/sx potential problems absent or manageable) I spent >30 minutes of patient care and instruction time in preparation for this discharge. * Hospital Course - Saw Solano MD - 11/02/2024 6:53 AM EDT Moshe Maddox is a 29 y.o. 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 Patient premedicated prior to initiation of 1st unit for exchange with acetaminophen and famotidine. Patient reports within 4-6 minutes after starting the acute onset of chills, palpitations, diffuseitching, and severe sharp LBP radiating up into his neck .Transfusion was stopped and diphenhydramine along with home oxycodone and 250ml NS bolus given. Symptoms persisted with 9/10 back pain and temp up to 101F, thus brought to ER for evaluation. Febrile in ED to 102.4F, tachy 100's, other VSS. Labs pertinent for WBC 32.9, Hgb stable at 7, retic count 227.3, INR 1.4, LDH 1,369. CXR no acute findings. Transfusion reaction and BCX collected. Hem advised admit for pain control and further infectious work-up. 10/20/2024: No acute events overnight. 10/21/2024: No acute events overnight. 10/22/2024: No acute events overnight. As per ID, Ideally, we would recommend removing the port. Ptunderstands standard of care would be to remove the port but would not like to have the port removed at this point. If the port is going to remain, we would recommend delivering abx through it. If ptcontinues to be bacteremic, then the port should be removed. DC Rocephin ceftriaxone, continue Vancomycin. Echocardiogram. Panorex shows Evaluation of the central structures are significantly limitedby motion. Within limits of the motion degraded study, there is no apparent dental caries or definite evidence of periapical abscess. 10/23/2024: No adverse events noted overnight. Echocardiogram is still pending. Pt is adamant aboutnot having his port pulled. He is an extremely difficult stick. Patient states that he is will not consent to having the port removed even for a few days. He notes that he has NO veins and Vascular access has a tough time getting blood or an IV even with US guidance. Will attempt to get Blood Cultures tomorrow AM. At around 14 18 was notified by microbiology that the patient was growing Gram-positive cocci in clusters from the blood yesterday drawn at 5:18 a.m. infectious disease notified. Spoke with the patient who was very distraught feels he is not being treated adequately concerned about leaving against medical advice. Explained to the patient regarding the probability stroke myocardialinfarction and other events in the case patient chooses against medical advice. Patient understands. He is alert and oriented able to walk does have the capacity his own medical decision. At this time we will continue with vancomycin Interventional Radiology has also been consulted to have the port removed. Two sets of blood cultures 1 from the central line in 1 from the periphery has been ordered to be done stat. 10/24/2024: No adverse events noted overnight. Vitals reviewed labs reviewed this morning. White blood cell count of 9.97 hemoglobin of 8.1 grams/deciliter hematocrit of 23.5% with a platelet count of 382. Differential reviewed, WNL. Labs reviewed showing a downtrending procalcitonin as well as a downtrending ESR and CRP. Blood culture taken from left arm as well as from central line. Discussed with the patient and with Infectious Disease, the patient is adamant about not removing the port. Cancelled port removal. IR made aware. At this time we will monitor the patient cautiously, hematology reached out in regards to having a exchange transfusion we will hold off until the patient is stable. Continue with IV infusion. Patient continues to refuse PORT exchange. Patient is A&O x3 understands the risks and benefit he has capacity to make medical decisions at his own volition. 10/25/2024: No adverse events noted overnight. Vitals reviewed, blood pressure this morning is 151/97. Labs reviewed showing a white blood cell count 11.83 hemoglobin 7.3 grams/deciliter hematocrit 21.2% with a platelet count of 400 absolute neutrophil count of 6.61 with a monocyte 0.98 with absolute basophil count of 0.11. Sed rate is 18. Pt is lying in bed, he is feeling a little bit better today. 10/26/2024: No adverse events noted overnight. Vitals reviewed, blood pressure this morning is 152/103. Labs reviewed showing a white blood cell count 9.74 Hgb 7.6 g/dL, Hct 22.1% PLT 396. Differential notes Lymphocytes absolute 3.97, Monocytes absolute 0.90, Basophils 0.11, Immature Granulocyte 0.07. Electrolytes are notable for a PO4 of 4.6, Procalcitonin 0.72, CRP 15.0, ESR 19. Blood Culture from arm 10/24/2024 is positive for Gram + positive cocci. Continuing Vancomycin consider adding Teflaro ceftraoline for adjuvant therapy. Pt is lying in bed and immediately starts looking at his phonewhen this automatic typewriter inspector and case resolution specialist came into the room. 10/27/2024: No adverse events noted overnight. Vital signs, blood pressure is still elevated at 152/113 patient is still in a lot of pain. Labs are reviewed notable for a white blood cell count of 9.12 hemoglobin of 7.4 hematocrit of 21.8% with a platelet count of 388. Differential noted. Electrolytes within normal limits calcium of 8.4 phosphorus of 5.1 with a procalcitonin of 0.49 downtrending C-reactive protein of 12.5 and a sed rate 20. Patient continues to endorse severe pain feeling very crummy. New set of blood culture collected from the left a.c. this morning wound culture as well as blood culture from the port has been collected yesterday at 2:22 p.m.. Patient is stable still feeling very bad. Doesn't want to Decrease Dilaudid. 10/28/2024: No adverse events noted overnight. Vital signs, blood pressure this AM is 165/97. Pain is a little better. Will decreased Dilaudid to 1 mg IVP Q3h PRN and Oxycodone 40 mg PO Q4h PRN. 10/29/2024: No adverse events noted overnight. Vital signs, they are WNL. Labs are notable for WBC 10.45 Hgb 7.9 Hct 23.1% PLT 383. Differential reviewed. BMP reviewed Mag 1.8 PO4 4.7. Procalcitonin 0.28, CRP 8.1 ESR 26. Patient is still in pain, Had high BP given Nifedipine 30 mg XL PO at 0030. Magnesium repleted. Infectious Disease has signed off we will do IV vancomycin for 14 days ending on November 09202410/30/2024: No adverse events noted overnight. Vital signs has been reviewed limits this morning blood pressure is 136/81. Labs are notable for a white blood cell count 8.56 with a hemoglobin 7.5 grams/deciliter with a hematocrit 22.6% platelet count is 359. Differential is within normal limits at this time. ESR is 18. Patient is lying in bed still on IV Dilaudid no issues. We will decrease Dilaudid tomorrow. 10/31/2024: No adverse events noted overnight. Vital signs has been reviewed WNL this morning. BP was 145/98. Labs are notable for a white blood cell count 10.40 with a hemoglobin of 7.5 g/dL hematocrit of 22.8% platelet count is 366. Differential is within normal limits. Electrolytes has been reviewed magnesium is 1.8 mEq we will replete. No issues today. Plan to DC tomorrow or Tuesday pending OPAT. 11/01/2024: No adverse events noted overnight. Vital signs has been reviewed WNL, BP this AM was 144/79. Labs reviewed white blood cell count 8.72 with a hemoglobin 7.0 grams/deciliter hematocrit 21.4% platelet 316. Differential was reviewed within normal limits electrolytes are within normal limits phosphorus is 4.6 calcitonin in his 0.41 ESR is 9.7 sed rate is 30. Patient is stable, still endorsing pain but better controlled. Will DC tomorrow at 1500. 11/02/2024: No adverse events noted overnight. Vital signs reviewed within normal limits. Blood pressure is 118/58. We will discontinue opiates this morning. Labs reviewed white blood cell count 9.07with a hemoglobin of 7.5 hematocrit count 314. Differential reviewed within normal limits. Patient had 1 unit of packed red blood cells yesterday hemoglobin rising 8.1 grams/deciliter hematocrit of 24.1%. Electrolytes within normal limits except for magnesium 1.8 we will replete. Procalcitonin of 0.48 with an ESR 21 and a C-reactive protein of 7.7. Patient is stable otherwise okay for discharge today. Moshe Maddox is a 29 y/o Male with a known medical history of Sickle Cell Disease and Hepatitis C presents after fever first noticed after blood transfusion. Bacteremia: Blood cultures (10/19) from Hand growing Streptococcus mitis/oralis group. Blood Cultures (/) from port growing Staphylococcus coagulase negative, MecA Positive. Panorex (10/22) showed: Evaluation of the central structures are significantly limited by motion. Within limits of the motion degraded study, there is no apparent dental caries or definite evidence of periapical abscess. Repeat blood cultures (10/22) are NGTD. Echocardiogram shows All cardiac valves were reasonably well interrogated with 2D imaging and/or Doppler assessment and no significant valve regurgitation or stenosis is seen. There is no definite echocardiographic evidence of endocarditis. Compared to the most recently available prior study, and allowing for differences in image quality and technique, there is no significant interval change noted. With left ventricular systolic function of 55-60%. Contacted Interventional Radiology, holding procedure to remove Port. At this time patient does not want his port removed. He has stated that is his only form of access that is he needs for the exchange transfusion. Thus he continues to refuse any IV line or IV placement. Infectious Disease made aware state itis patient's decision they can only inform him of their recommendation. Antibiotics (started 10/20/24)--Vanc (for Staph) thru the port Pharmacy to help DOSE, thank you Consider 14 days of ABX from the last negative Blood Culture thus we will and antibiotics on till November 09, 2024 Finished with lactated Ringer's that was going at 150 cc an hour Repeat Blood Culture. Sickle cell acute pain crisis & Sickle cell anemia: continue hydroxyurea 500mg BID, folic acid 1mg daily Pain control Stopped on the morning of DC, Hydromorphone 1 mg IV q3h PRN diphenhydramine 50 mg IV q4h PRN home oxycodone 40 mg q4h PRN diclofenac gel 4 g QID PRN acetaminophen 650 mg q8h PRN, methocarbamol 750mg QID PRN, lidoderm patch daily Bowel Regimen: senna 17.2 mg daily Hold off on any exchange transfusion until patient is stable. 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 HBV Surface Ag negative, Hep B core Total AB positive Hepatology follow-up at discharge Tobacco Use Disorder (Vapes) - he declined NRT FENGI: Regular DVT prophylaxis: Eliquis apixaban 5 mg PO BID GI prophylaxis: NONE Code status: Full Code * Care Plan - Naveed, Velasquez - 11/01/2024 8:39 PM EDT Problem: Adult Inpatient Plan of Care Goal: Plan of Care Review Outcome: Ongoing, Progressing Goal: Patient-Specific Goal (Individualized) Outcome: Ongoing, Progressing Goal: Absence of Hospital-Acquired Illness or Injury Outcome: Ongoing, Progressing Goal: Optimal Comfort and Wellbeing Outcome: Ongoing, Progressing Problem: Infection Goal: Absence of Infection Signs and Symptoms Outcome: Ongoing, Progressing Intervention: Prevent or Manage Infection Flowsheets Taken 11/01/20242036 by Velasquez Lucio Infection Management: aseptic technique maintained Fever Reduction/Comfort Measures: cool cloth applied Taken 11/01/2024 1142 by Samaria Pettit, RN Isolation Precautions: contact Problem: Pain Acute Goal: Optimal Pain Control and Function Outcome: Ongoing, Progressing Intervention: Optimize Psychosocial Wellbeing Flowsheets (Taken 11/01/20242036) Diversional Activities: smartphone television music Spiritual Activities Assistance: affirmation provided Problem: Sickle Cell Disease Goal: Optimal Cerebral Tissue Perfusion Outcome: Ongoing, Progressing Intervention: Protect and Optimize Cerebral Perfusion Flowsheets (Taken 11/01/20242036) Fever Reduction/Comfort Measures: cool cloth applied Cerebral Perfusion Promotion: blood pressure monitored Goal: Optimal Coping with Sickle Cell Disease Outcome: Ongoing, Progressing Intervention: Support Psychosocial Adjustment Flowsheets (Taken 10/31/20242250 by Willa Foster) Supportive Measures: active listening utilized decision-making supported positive reinforcement provided verbalization of feelings encouraged Family/Support System Care: involvement promoted self-care encouraged support provided Goal: Effective Tissue Perfusion Outcome: Ongoing, Progressing Intervention: Maintain Adequate Tissue Perfusion Flowsheets (Taken 10/31/20242250 by Willa Foster) Fluid/Electrolyte Management: fluids provided Goal: Absence of Infection Signs and Symptoms Outcome: Ongoing, Progressing Intervention: Prevent or Manage Infection Flowsheets Taken 11/01/20242036 by Velasquez Lucio Infection Management: aseptic technique maintained Fever Reduction/Comfort Measures: cool cloth applied Taken 10/31/20242250 by Willa Foster Infection Prevention: environmental surveillance performed hand hygiene promoted single patient room provided Goal: Optimal Pain Control and Function Outcome: Ongoing, Progressing Intervention: Manage Acute Pain Flowsheets Taken 11/01/20242036 Diversional Activities: smartphone television music Taken 11/01/20242031 Pain Management Interventions: medication (see MAR) Goal: Optimal Oxygenation Outcome: Ongoing, Progressing Intervention: Optimize Oxygenation Flowsheets (Taken 11/01/2024 1142 by Samaria Pettit, RN) Cough And Deep Breathing: done independently per patient * Progress Notes - Renetta Rebolledo - 11/01/2024 1:28 PM EDT Case Management Adult Progress Note Moshe Maddox 29 y.o. male CSN: [id number] Admission: 10/19/2024 5:31 PM Primary Problem: Blood transfusion reaction, initial encounter Anticipated Discharge Date: 11/02 Has Discharge Plans Changed? No Medicare Second Notice: Medicare Medicare Second Notice?: No Housing Circumstances: Not Applicable Housing Circumstances Action Taken: Medically Ready for Discharge: 24 hours Additional Comments Plan of care and discharge plan reviewed this AM with attending MD. Plan for caregiver to be available tomorrow afternoon to transport to home and assist with IV abx. [employer] liaLidya colmenares, updates. No additional discharge needs communicated. Renetta Rebolledo, RN, BSN Case Management * Care Plan - Samaria Pettit RN - 11/01/2024 10:33 AM EDT Problem: Adult Inpatient Plan of Care Goal: Plan of Care Review Outcome: Ongoing, Progressing Goal: Patient-Specific Goal (Individualized) Outcome: Ongoing, Progressing Flowsheets (Taken 11/01/2024 0804) Patient/Family-Specific Goals (Include Timeframe): pt will verbalize an adequate pain control during shift Individualized Care Needs: pain Anxieties, Fears or Concerns: pain Goal: Absence of Hospital-Acquired Illness or Injury Outcome: Ongoing, Progressing Goal: Optimal Comfort and Wellbeing Outcome: Ongoing, Progressing Problem: Infection Goal: Absence of Infection Signs and Symptoms Outcome: Ongoing, Progressing Intervention: Prevent or Manage Infection Flowsheets Taken 11/01/2024 1030 by Samaria Pettit, RN Isolation Precautions: contact Taken 10/31/20242250 by Willa Foster Infection Management: aseptic technique maintained Fever Reduction/Comfort Measures: lightweight bedding lightweight clothing Problem: Pain Acute Goal: Optimal Pain Control and Function Outcome: Ongoing, Progressing Intervention: Optimize Psychosocial Wellbeing Flowsheets (Taken 10/31/20242250 by Willa Foster) Supportive Measures: active listening utilized decision-making supported positive reinforcement provided verbalization of feelings encouraged Diversional Activities: television smartphone Intervention: Develop Pain Management Plan Flowsheets (Taken 11/01/2024 0957) Pain Management Interventions: medication (see MAR) Problem: Sickle Cell Disease Goal: Optimal Cerebral Tissue Perfusion Outcome: Ongoing, Progressing Intervention: Protect and Optimize Cerebral Perfusion Flowsheets Taken 11/01/2024 0804 by Samaria Pettit, RN Head of Bed (HOB) Positioning: HOB at 30-45 degrees Taken 10/31/20242250 by Willa Foster Fever Reduction/Comfort Measures: lightweight bedding lightweight clothing Cerebral Perfusion Promotion: blood pressure monitored Goal: Optimal Coping with Sickle Cell Disease Outcome: Ongoing, Progressing Intervention: Support Psychosocial Adjustment Flowsheets (Taken 10/31/20242250 by Willa Foster) Supportive Measures: active listening utilized decision-making supported positive reinforcement provided verbalization of feelings encouraged Family/Support System Care: involvement promoted self-care encouraged support provided Goal: Effective Tissue Perfusion Outcome: Ongoing, Progressing Intervention: Maintain Adequate Tissue Perfusion Flowsheets (Taken 10/31/20242250 by Willa Foster) Fluid/Electrolyte Management: fluids provided Goal: Absence of Infection Signs and Symptoms Outcome: Ongoing, Progressing Intervention: Prevent or Manage Infection Flowsheets Taken 11/01/2024 1030 by Samaria Pettit RN Isolation Precautions: contact Taken 10/31/20242250 by Willa Foster Infection Management: aseptic technique maintained Fever Reduction/Comfort Measures: lightweight bedding lightweight clothing Infection Prevention: environmental surveillance performed hand hygiene promoted single patient room provided Goal: Optimal Pain Control and Function Outcome: Ongoing, Progressing Intervention: Manage Acute Pain Flowsheets Taken 11/01/2024 1030 by Samaria Pettit RN Sleep/Rest Enhancement: natural light exposure provided noise level reduced Taken 11/01/2024 0957 by Samaria Pettit, applications trainer Interventions: medication (see MAR) Taken 10/31/20242250 by Willa Foster Diversional Activities: television smartphone Intervention: Acknowledge Underlying Chronic Pain Flowsheets (Taken 10/31/20242301 by Willa Foster) Medication Review/Management: medications reviewed high-risk medications identified Goal: Optimal Oxygenation Outcome: Ongoing, Progressing Intervention: Optimize Oxygenation Flowsheets Taken 11/01/2024 0804 by Samaria Pettit, NASEEM Cough And Deep Breathing: done independently per patient Taken 10/31/20242301 by Willa Foster Airway/Ventilation Management: (n/a) other (see comments) Problem: Fall Injury Risk Goal: Absence of Fall and Fall-Related Injury Outcome: Ongoing, Progressing Intervention: Identify and Manage Contributors Flowsheets (Taken 10/31/20242301 by Willa Foster) Medication Review/Management: medications reviewed high-risk medications identified Intervention: Promote Injury-Free Environment Flowsheets (Taken 11/01/2024 08) Safety Promotion/Fall Prevention: fall prevention program maintained lighting adjusted nonskid shoes/slippers when out of bed room organization consistent safety round/check completed * Progress Notes - Saw Solano MD - 11/01/2024 6:46 AM EDT Subjective Moshe Maddox is a 29 y.o. 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 Patient premedicated prior to initiation of 1st unit for exchange with acetaminophen and famotidine. Patient reports within 4-6 minutes after starting the acute onset of chills, palpitations, diffuseitching, and severe sharp LBP radiating up into his neck .Transfusion was stopped and diphenhydramine along with home oxycodone and 250ml NS bolus given. Symptoms persisted with 9/10 back pain and temp up to 101F, thus brought to ER for evaluation. Febrile in ED to 102.4F, tachy 100's, other VSS. Labs pertinent for WBC 32.9, Hgb stable at 7, retic count 227.3, INR 1.4, LDH 1,369. CXR no acute findings. Transfusion reaction and BCX collected. Hem advised admit for pain control and further infectious work-up. 10/20/2024: No acute events overnight. 10/21/2024: No acute events overnight. 10/22/2024: No acute events overnight. As per ID, Ideally, we would recommend removing the port. Ptunderstands standard of care would be to remove the port but would not like to have the port removed at this point. If the port is going to remain, we would recommend delivering abx through it. If ptcontinues to be bacteremic, then the port should be removed. DC Rocephin ceftriaxone, continue Vancomycin. Echocardiogram. Panorex shows Evaluation of the central structures are significantly limitedby motion. Within limits of the motion degraded study, there is no apparent dental caries or definite evidence of periapical abscess. 10/23/2024: No adverse events noted overnight. Echocardiogram is still pending. Pt is adamant aboutnot having his port pulled. He is an extremely difficult stick. Patient states that he is will not consent to having the port removed even for a few days. He notes that he has NO veins and Vascular access has a tough time getting blood or an IV even with US guidance. Will attempt to get Blood Cultures tomorrow AM. At around 14 18 was notified by microbiology that the patient was growing Gram-positive cocci in clusters from the blood yesterday drawn at 5:18 a.m. infectious disease notified. Spoke with the patient who was very distraught feels he is not being treated adequately concerned about leaving against medical advice. Explained to the patient regarding the probability stroke myocardialinfarction and other events in the case patient chooses against medical advice. Patient understands. He is alert and oriented able to walk does have the capacity his own medical decision. At this time we will continue with vancomycin Interventional Radiology has also been consulted to have the port removed. Two sets of blood cultures 1 from the central line in 1 from the periphery has been ordered to be done stat. 10/24/2024: No adverse events noted overnight. Vitals reviewed labs reviewed this morning. White blood cell count of 9.97 hemoglobin of 8.1 grams/deciliter hematocrit of 23.5% with a platelet count of 382. Differential reviewed, WNL. Labs reviewed showing a downtrending procalcitonin as well as a downtrending ESR and CRP. Blood culture taken from left arm as well as from central line. Discussed with the patient and with Infectious Disease, the patient is adamant about not removing the port. Cancelled port removal. IR made aware. At this time we will monitor the patient cautiously, hematology reached out in regards to having a exchange transfusion we will hold off until the patient is stable. Continue with IV infusion. Patient continues to refuse PORT exchange. Patient is A&O x3 understands the risks and benefit he has capacity to make medical decisions at his own volition. 10/25/2024: No adverse events noted overnight. Vitals reviewed, blood pressure this morning is 151/97. Labs reviewed showing a white blood cell count 11.83 hemoglobin 7.3 grams/deciliter hematocrit 21.2% with a platelet count of 400 absolute neutrophil count of 6.61 with a monocyte 0.98 with absolute basophil count of 0.11. Sed rate is 18. Pt is lying in bed, he is feeling a little bit better today. 10/26/2024: No adverse events noted overnight. Vitals reviewed, blood pressure this morning is 152/103. Labs reviewed showing a white blood cell count 9.74 Hgb 7.6 g/dL, Hct 22.1% PLT 396. Differential notes Lymphocytes absolute 3.97, Monocytes absolute 0.90, Basophils 0.11, Immature Granulocyte 0.07. Electrolytes are notable for a PO4 of 4.6, Procalcitonin 0.72, CRP 15.0, ESR 19. Blood Culture from arm 10/24/2024 is positive for Gram + positive cocci. Continuing Vancomycin consider adding Teflaro ceftraoline for adjuvant therapy. Pt is lying in bed and immediately starts looking at his phonewhen this automatic typewriter inspector and case resolution specialist came into the room. 10/27/2024: No adverse events noted overnight. Vital signs, blood pressure is still elevated at 152/113 patient is still in a lot of pain. Labs are reviewed notable for a white blood cell count of 9.12 hemoglobin of 7.4 hematocrit of 21.8% with a platelet count of 388. Differential noted. Electrolytes within normal limits calcium of 8.4 phosphorus of 5.1 with a procalcitonin of 0.49 downtrending C-reactive protein of 12.5 and a sed rate 20. Patient continues to endorse severe pain feeling very crummy. New set of blood culture collected from the left a.c. this morning wound culture as well as blood culture from the port has been collected yesterday at 2:22 p.m.. Patient is stable still feeling very bad. Doesn't want to Decrease Dilaudid. 10/28/2024: No adverse events noted overnight. Vital signs, blood pressure this AM is 165/97. Pain is a little better. Will decreased Dilaudid to 1 mg IVP Q3h PRN and Oxycodone 40 mg PO Q4h PRN. 10/29/2024: No adverse events noted overnight. Vital signs, they are WNL. Labs are notable for WBC 10.45 Hgb 7.9 Hct 23.1% PLT 383. Differential reviewed. BMP reviewed Mag 1.8 PO4 4.7. Procalcitonin 0.28, CRP 8.1 ESR 26. Patient is still in pain, Had high BP given Nifedipine 30 mg XL PO at 0030. Magnesium repleted. Infectious Disease has signed off we will do IV vancomycin for 14 days ending on November 09202410/30/2024: No adverse events noted overnight. Vital signs has been reviewed limits this morning blood pressure is 136/81. Labs are notable for a white blood cell count 8.56 with a hemoglobin 7.5 grams/deciliter with a hematocrit 22.6% platelet count is 359. Differential is within normal limits at this time. ESR is 18. Patient is lying in bed still on IV Dilaudid no issues. We will decrease Dilaudid tomorrow. 10/31/2024: No adverse events noted overnight. Vital signs has been reviewed WNL this morning. BP was 145/98. Labs are notable for a white blood cell count 10.40 with a hemoglobin of 7.5 g/dL hematocrit of 22.8% platelet count is 366. Differential is within normal limits. Electrolytes has been reviewed magnesium is 1.8 mEq we will replete. No issues today. Plan to DC tomorrow or Tuesday pending OPAT. 11/01/2024: No adverse events noted overnight. Vital signs has been reviewed WNL, BP this AM was 144/79. Labs reviewed white blood cell count 8.72 with a hemoglobin 7.0 grams/deciliter hematocrit 21.4% platelet 316. Differential was reviewed within normal limits electrolytes are within normal limits phosphorus is 4.6 calcitonin in his 0.41 ESR is 9.7 sed rate is 30. Patient is stable, still endorsing pain but better controlled. Will DC tomorrow at 1500. Review of Systems All other systems reviewed and are negative. Objective Vitals Temp: [36.3 ??C (97.3 ??F)-36.8 ??C (98.2 ??F)] 36.3 ??C (97.3 ??F) Heart Rate: [80-103] 82 Resp: [16-22] 19 BP: (118-144)/(70-91) 144/79 Physical Exam Constitutional: General: He is not in acute distress. Appearance: Normal appearance. He is normal weight. He is not ill-appearing or diaphoretic. Eyes: General: No scleral icterus. Cardiovascular: Rate and Rhythm: Normal rate. Pulmonary: Effort: Pulmonary effort is normal. No respiratory distress. Chest: Comments: Chest Wall has a port on the patient Right side of the chest. Abdominal: General: Abdomen is flat. There is no distension. Palpations: Abdomen is soft. Musculoskeletal: General: No swelling. Normal range of motion. Cervical back: Normal range of motion. Right lower leg: No edema. Left lower leg: No edema. Skin: General: Skin is warm. Capillary Refill: Capillary refill takes less than 2 seconds. Neurological: General: No focal deficit present. Mental Status: He is alert and oriented to person, place, and time. Mental status is at baseline. Assessment & Plan Blood transfusion reaction, initial encounter Moshe Maddox is a 29 y/o Male with a known medical history of Sickle Cell Disease and Hepatitis C presents after fever first noticed after blood transfusion. Bacteremia: Blood cultures (8/15) from Hand growing Streptococcus mitis/oralis group. Blood Cultures (8/15) from port growing Staphylococcus coagulase negative, MecA Positive. Panorex (8/18) showed: Evaluation of the central structures are significantly limited by motion. Within limits of the motion degraded study, there is no apparent dental caries or definite evidence of periapical abscess. Repeat blood cultures (8/18) are NGTD. Echocardiogram shows All cardiac valves were reasonably well interrogated with 2D imaging and/or Doppler assessment and no significant valve regurgitation or stenosis is seen. There is no definite echocardiographic evidence of endocarditis. Compared to the most recently available prior study, and allowing for differences in image quality and technique, there is no significant interval change noted. With left ventricular systolic function of 55-60%. Contacted Interventional Radiology, holding procedure to remove Port. At this time patient does not want his port removed. He has stated that is his only form of access that is he needs for the exchange transfusion. Thus he continues to refuse any IV line or IV placement. Infectious Disease made aware state itis patient's decision they can only inform him of their recommendation. Antibiotics (started 10/20/24)--Vanc (for Staph) thru the port Pharmacy to help DOSE, thank you Consider 14 days of ABX from the last negative Blood Culture thus we will and antibiotics on November 09, 2024 Volume Resuscitation - LR 150mL/hr Repeat Blood Culture. Sickle cell acute pain crisis & Sickle cell anemia: continue hydroxyurea 500mg BID, folic acid 1mg daily Pain control Hydromorphone 1 mg IV q3h PRN diphenhydramine 50 mg IV q4h PRN home oxycodone 40 mg q4h PRN diclofenac gel 4 g QID PRN acetaminophen 650 mg q8h PRN, methocarbamol 750mg QID PRN, lidoderm patch daily Bowel Regimen: senna 17.2 mg daily Hold off on any exchange transfusion until patient is stable. 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 HBV Surface Ag negative, Hep B core Total AB positive Hepatology follow-up at discharge Tobacco Use Disorder (Vapes) - he declined NRT FENGI: Regular DVT prophylaxis: Eliquis apixaban 5 mg PO BID GI prophylaxis: NONE Code status: Full Code Disposition: Home when stable. Saw Solano MD Internal Medicine Hospitalist [employer] Department of Internal Medicine Division of Hospital Medicine [place] [phone] Preferred method is secure chat or cell phone at [phone] Medically Ready for Discharge:Anticipated in 2-4 Days * Care Plan - Willa Foster - 10/31/2024 11:05 PM EDT Problem: Adult Inpatient Plan of Care Goal: Plan of Care Review 10/31/2024 0023 by Willa Foster Outcome: Ongoing, Progressing Flowsheets (Taken 10/31/2024 0481) Progress: improving Plan of Care Reviewed With: patient 10/31/20242301 by Willa Foster Outcome: Ongoing, Progressing Flowsheets (Taken 10/31/20242250) Progress: improving Plan of Care Reviewed With: patient Goal: Patient-Specific Goal (Individualized) 10/31/20242301 by Willa Foster Outcome: Ongoing, Progressing Flowsheets (Taken 10/31/20242002) Patient/Family-Specific Goals (Include Timeframe): patient will remain free from harm during shift Individualized Care Needs: safety, pain control Anxieties, Fears or Concerns: none stated 10/31/20242301 by Willa Foster Outcome: Ongoing, Progressing Flowsheets (Taken 10/31/20242002) Patient/Family-Specific Goals (Include Timeframe): patient will remain free from harm during shift Individualized Care Needs: safety, pain control Anxieties, Fears or Concerns: none stated Goal: Absence of Hospital-Acquired Illness or Injury 10/31/20242301 by Willa Foster Outcome: Ongoing, Progressing 10/31/20242301 by Willa Foster Outcome: Ongoing, Progressing Goal: Optimal Comfort and Wellbeing 10/31/20242301 by Willa Foster Outcome: Ongoing, Progressing 10/31/20242301 by Willa Foster Outcome: Ongoing, Progressing Problem: Infection Goal: Absence of Infection Signs and Symptoms 10/31/20242301 by Willa Foster Outcome: Ongoing, Progressing 10/31/20242301 by Willa Foster Outcome: Ongoing, Progressing Intervention: Prevent or Manage Infection 10/31/20242301 by Willa Foster Flowsheets (Taken 10/31/20242250) Infection Management: aseptic technique maintained Fever Reduction/Comfort Measures: lightweight bedding lightweight clothing Isolation Precautions: contact 10/31/20242301 by Willa Foster Flowsheets (Taken 10/31/20242250) Infection Management: aseptic technique maintained Fever Reduction/Comfort Measures: lightweight bedding lightweight clothing Isolation Precautions: contact Problem: Pain Acute Goal: Optimal Pain Control and Function 10/31/20242301 by Willa Foster Outcome: Ongoing, Progressing 10/31/20242301 by Willa Foster Outcome: Ongoing, Progressing Intervention: Optimize Psychosocial Wellbeing 10/31/20242301 by Willa Foster (Taken 10/31/20242250) Supportive Measures: active listening utilized decision-making supported positive reinforcement provided verbalization of feelings encouraged Diversional Activities: television smartphone Spiritual Activities Assistance: personal rituals encouraged 10/31/20242301 by Willa Foster Flowsheets (Taken 10/31/20242250) Supportive Measures: active listening utilized decision-making supported positive reinforcement provided verbalization of feelings encouraged Diversional Activities: television smartphone Spiritual Activities Assistance: personal rituals encouraged Intervention: Develop Pain Management Plan 10/31/20242301 by Willa Foster (Taken 10/31/20242199) Pain Management Interventions: medication (see MAR) 10/31/20242301 by Willa Foster (Taken 10/31/20242199) Pain Management Interventions: medication (see MAR) Problem: Sickle Cell Disease Goal: Optimal Cerebral Tissue Perfusion 10/31/20242301 by Willa Foster Outcome: Ongoing, Progressing 10/31/20242301 by Willa Foster Outcome: Ongoing, Progressing Intervention: Protect and Optimize Cerebral Perfusion 10/31/20242301 by Willa Foster (Taken 10/31/20242250) Fever Reduction/Comfort Measures: lightweight bedding lightweight clothing Sensory Stimulation Regulation: care clustered lighting decreased quiet environment promoted television on Cerebral Perfusion Promotion: blood pressure monitored Head of Bed (HOB) Positioning: HOB at 30-45 degrees 10/31/20242301 by Willa Foster (Taken 10/31/20242250) Fever Reduction/Comfort Measures: lightweight bedding lightweight clothing Sensory Stimulation Regulation: care clustered lighting decreased quiet environment promoted television on Cerebral Perfusion Promotion: blood pressure monitored Head of Bed (HOB) Positioning: HOB at 30-45 degrees Goal: Optimal Coping with Sickle Cell Disease 10/31/20242301 by Willa Foster Outcome: Ongoing, Progressing 10/31/20242301 by Willa Foster Outcome: Ongoing, Progressing Intervention: Support Psychosocial Adjustment 10/31/20242301 by Willa Foster (Taken 10/31/20242250) Supportive Measures: active listening utilized decision-making supported positive reinforcement provided verbalization of feelings encouraged Family/Support System Care: involvement promoted self-care encouraged support provided 10/31/20242301 by Willa Foster Flowsheets (Taken 10/31/20242250) Supportive Measures: active listening utilized decision-making supported positive reinforcement provided verbalization of feelings encouraged Family/Support System Care: involvement promoted self-care encouraged support provided Goal: Effective Tissue Perfusion 10/31/20242301 by Willa Foster Outcome: Ongoing, Progressing 10/31/20242301 by Willa Foster Outcome: Ongoing, Progressing Intervention: Maintain Adequate Tissue Perfusion 10/31/20242301 by Willa Foster Flowsheets (Taken 10/31/20242250) Fluid/Electrolyte Management: fluids provided 10/31/20242301 by Willa Foster Flowsheets (Taken 10/31/20242250) Fluid/Electrolyte Management: fluids provided Goal: Absence of Infection Signs and Symptoms 10/31/20242301 by Willa Foster Outcome: Ongoing, Progressing 10/31/20242301 by Willa Foster Outcome: Ongoing, Progressing Intervention: Prevent or Manage Infection 10/31/20242301 by Willa Foster Flowsheets (Taken 10/31/20242250) Infection Management: aseptic technique maintained Fever Reduction/Comfort Measures: lightweight bedding lightweight clothing Infection Prevention: environmental surveillance performed hand hygiene promoted single patient room provided Isolation Precautions: contact 10/31/20242301 by Willa Foster Flowsheets (Taken 10/31/20242250) Infection Management: aseptic technique maintained Fever Reduction/Comfort Measures: lightweight bedding lightweight clothing Infection Prevention: environmental surveillance performed hand hygiene promoted single patient room provided Isolation Precautions: contact Goal: Optimal Pain Control and Function Outcome: Ongoing, Progressing Intervention: Manage Acute Pain Flowsheets Taken 10/31/20242301 Sleep/Rest Enhancement: noise level reduced regular sleep/rest pattern promoted room darkened relaxation techniques promoted Taken 10/31/20242250 Diversional Activities: television smartphone Taken 10/31/20242199 Pain Management Interventions: medication (see MAR) Intervention: Acknowledge Underlying Chronic Pain Flowsheets (Taken 10/31/20242301) Medication Review/Management: medications reviewed high-risk medications identified Goal: Optimal Oxygenation Outcome: Ongoing, Progressing Intervention: Optimize Oxygenation Flowsheets (Taken 10/31/20242301) Airway/Ventilation Management: (n/a) other (see comments) Cough And Deep Breathing: done independently per patient Problem: Fall Injury Risk Goal: Absence of Fall and Fall-Related Injury Outcome: Ongoing, Progressing Intervention: Identify and Manage Contributors Flowsheets (Taken 10/31/2024 2302) Medication Review/Management: medications reviewed high-risk medications identified Intervention: Promote Injury-Free Environment Flowsheets (Taken 10/31/2024 2200) Safety Promotion/Fall Prevention: clutter-free environment maintained lighting adjusted nonskid shoes/slippers when out of bed room organization consistent safety round/check completed * Care Plan - Samaria Pettit RN - 10/31/2024 5:24 PM EDT Problem: Adult Inpatient Plan of Care Goal: Plan of Care Review Outcome: Ongoing, Progressing Goal: Patient-Specific Goal (Individualized) Outcome: Ongoing, Progressing Flowsheets (Taken 10/31/2024 0832) Patient/Family-Specific Goals (Include Timeframe): pt will remain free from harm/injury during shift Anxieties, Fears or Concerns: none stated Goal: Absence of Hospital-Acquired Illness or Injury Outcome: Ongoing, Progressing Goal: Optimal Comfort and Wellbeing Outcome: Ongoing, Progressing Problem: Infection Goal: Absence of Infection Signs and Symptoms Outcome: Ongoing, Progressing Intervention: Prevent or Manage Infection Flowsheets Taken 10/31/2024 1632 by Samaria Pettit, RN Isolation Precautions: contact Taken 10/25/2024 2221 by Kelli Cunningham RN Infection Management: aseptic technique maintained Fever Reduction/Comfort Measures: lightweight bedding lightweight clothing Problem: Pain Acute Goal: Optimal Pain Control and Function Outcome: Ongoing, Progressing Intervention: Optimize Psychosocial Wellbeing Flowsheets (Taken 10/25/2024 1354 by Channing Wallis RN) Supportive Measures: active listening utilized decision-making supported goal-setting facilitated mindfulness techniques promoted positive reinforcement provided Diversional Activities: smartphone television Spiritual Activities Assistance: hope instilled Intervention: Develop Pain Management Plan Flowsheets (Taken 10/31/2024 1628) Pain Management Interventions: medication (see MAR) Problem: Sickle Cell Disease Goal: Optimal Cerebral Tissue Perfusion Outcome: Ongoing, Progressing Intervention: Protect and Optimize Cerebral Perfusion Flowsheets Taken 10/31/2024 1721 by Samaria Pettit RN Sensory Stimulation Regulation: care clustered television on Taken 10/31/2024 0832 by Samaria Pettit RN Head of Bed (HOB) Positioning: HOB at 30-45 degrees Taken 10/27/2024 1325 by Samaria Pettit RN Cerebral Perfusion Promotion: blood pressure monitored Taken 10/25/2024 222 by Kelli Cunningham RN Fever Reduction/Comfort Measures: lightweight bedding lightweight clothing Goal: Optimal Coping with Sickle Cell Disease Outcome: Ongoing, Progressing Intervention: Support Psychosocial Adjustment Flowsheets Taken 10/27/2024 1325 by Samaria Pettit RN Family/Support System Care: involvement promoted presence promoted self-care encouraged support provided Taken 10/25/2024 1354 by Channing Wallis RN Supportive Measures: active listening utilized decision-making supported goal-setting facilitated mindfulness techniques promoted positive reinforcement provided Goal: Effective Tissue Perfusion Outcome: Ongoing, Progressing Intervention: Maintain Adequate Tissue Perfusion Flowsheets (Taken 10/27/2024 0150 by Jen Nolen, NASEEM) Fluid/Electrolyte Management: fluids provided Goal: Absence of Infection Signs and Symptoms Outcome: Ongoing, Progressing Intervention: Prevent or Manage Infection Flowsheets Taken 10/31/2024 1632 by Smaaria Pettit RN Isolation Precautions: contact Taken 10/27/2024 1325 by Samaria Pettit RN Infection Prevention: environmental surveillance performed hand hygiene promoted single patient room provided rest/sleep promoted Taken 10/25/20242220 by Kelli Cunningham RN Infection Management: aseptic technique maintained Fever Reduction/Comfort Measures: lightweight bedding lightweight clothing Goal: Optimal Pain Control and Function Outcome: Ongoing, Progressing Intervention: Manage Acute Pain Flowsheets Taken 10/31/2024 1628 by Samaria Pettit RN Pain Management Interventions: medication (see MAR) Taken 10/25/2024 1354 by Channing Wallis RN Diversional Activities: smartphone television Intervention: Acknowledge Underlying Chronic Pain Flowsheets (Taken 10/27/2024 0150 by Jen Nolen, RN) Medication Review/Management: medications reviewed high-risk medications identified Goal: Optimal Oxygenation Outcome: Ongoing, Progressing Intervention: Optimize Oxygenation Flowsheets Taken 10/31/2024 0832 by Samaria Pettit, RN Cough And Deep Breathing: done independently per patient Taken 10/29/2024 9195 by Yojana Knight Airway/Ventilation Management: oxygen therapy provided Problem: Fall Injury Risk Goal: Absence of Fall and Fall-Related Injury Outcome: Ongoing, Progressing Intervention: Identify and Manage Contributors Flowsheets (Taken 10/27/2024 0150 by Jen Nolen, RN) Medication Review/Management: medications reviewed high-risk medications identified Intervention: Promote Injury-Free Environment Flowsheets (Taken 10/31/2024 1632) Safety Promotion/Fall Prevention: clutter-free environment maintained fall prevention program maintained lighting adjusted nonskid shoes/slippers when out of bed room organization consistent safety round/check completed * Discharge Instr - Other Orders - Lauren Cummins RN - 10/31/2024 10:51 AM EDT Go to [facility] for Port Care and Labs Antimicrobial Regimen: Antimicrobials (including doses): Vanco (pharmacy to dose) Start date: 10/26/24 Projected End Date: 11/09/24 Transition to oral therapy: No If yes, antimicrobial (with dose/end dates): Future Imaging: None Lab Monitoring (weekly, preferably on Mondays unless otherwise specified): CBC w/ differential *CRP for patients with bone/joint infections and endocarditis or endovascular infections Antimicrobial specific labs: Vancomycin: BUN, SrCr, and vancomycin level (random if continuous, trough if intermittent) Please fax all labs to: [facility] OPAT Team Attn: Jagdish Fax #: [phone] * Progress Notes - Lauren Cummins RN - 10/31/2024 10:39 AM EDT Case Management Adult Progress Note Moshe Maddox 29 y.o. male CSN: [id number] Admission: 10/19/2024 5:31 PM Primary Problem: Blood transfusion reaction, initial encounter Anticipated Discharge Date: Anticipated Tuesday discharge Has Discharge Plans Changed? To home w/spouse Medicare Second Notice: N/A Housing Circumstances: Mackenzie Brandt (Significant Other) - [phone] [address] [place] [address] Additional Comments: RNCM went to see and speak with patient with attending during morning rounds; plan to discharge patient to home on Tuesday- Mackenzie Brandt (Significant Other) - [phone] will provide discharge transportation to home. RNCM notified [employer] of discharge planning and updated on POC- Ashley Roman. Patient scheduled to go to [facility] to get Labs and PortCare- RNCM scheduled appointment on 11/09/24 at 12noon; RNCM spoke with Linda at Infusion center # [phone]- Orders to be faxed to [facility] prio to discharge along with DC Summary# [phone]. Antimicrobial Regimen: Antimicrobials (including doses): Vanco (pharmacy to dose) Start date: 10/26/24 Projected End Date: 11/09/24 Transition to oral therapy: No If yes, antimicrobial (with dose/end dates): Future Imaging: None Lab Monitoring (weekly, preferably on Mondays unless otherwise specified): CBC w/ differential *CRP for patients with bone/joint infections and endocarditis or endovascular infections Antimicrobial specific labs: Vancomycin: BUN, SrCr, and vancomycin level (random if continuous, trough if intermittent) Please fax all labs to: ID OPAT Team Attn: Jagdish Fax #: [phone] Lauren Cummins RN Case Management * Progress Notes - Samantha Melchor, PharmD - 10/31/2024 9:49 AM EDT Pharmacokinetic Consult - Therapeutic Drug Monitoring HPI and Hospital Course: Moshe Maddox is a 29 y.o. male presenting with port associated bacteremia. Pharmacy consulted to assist with management of vancomycin therapy for Bacteremia. Random concentration therapeutic drug monitoring performed due to patient receiving continuous infusion. Creatinine, Plasma (mg/dL) Date/Time Value 10/31/2024530 0.89 Estimated Creatinine Clearance: 125 mL/min (by C-G formula based on SCr of 0.89 mg/dL). Vancomycin, Random, Plasma (ug/mL) Date/Time Value 10/31/2024 0531 19.6 10/31/2024530 19.0 AUC = 456 Assessment/Plan 1. Patient is Therapeutic for AUC of 400 - 600. Recommend to continue continuous infusion of vancomycin 2500 mg IV every 24 hours. 2. Monitor renal function (SCr and BUN) and UOP at least 2-3x weekly or more frequently if renal function changes. 3. Recommend random vancomycin level for AUC assessment within 7 days or sooner if renal function changes. Pharmacy will continue to follow, Samantha Melchor PharmD 10/31/2024 9:47 AM * Progress Notes - Saw Solano MD - 10/31/2024 6:58 AM EDT Subjective Moshe Maddox is a 29 y.o. 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 Patient premedicated prior to initiation of 1st unit for exchange with acetaminophen and famotidine. Patient reports within 4-6 minutes after starting the acute onset of chills, palpitations, diffuseitching, and severe sharp LBP radiating up into his neck .Transfusion was stopped and diphenhydramine along with home oxycodone and 250ml NS bolus given. Symptoms persisted with 9/10 back pain and temp up to 101F, thus brought to ER for evaluation. Febrile in ED to 102.4F, tachy 100's, other VSS. Labs pertinent for WBC 32.9, Hgb stable at 7, retic count 227.3, INR 1.4, LDH 1,369. CXR no acute findings. Transfusion reaction and BCX collected. Hem advised admit for pain control and further infectious work-up. 10/20/2024: No acute events overnight. 10/21/2024: No acute events overnight. 10/22/2024: No acute events overnight. As per ID, Ideally, we would recommend removing the port. Ptunderstands standard of care would be to remove the port but would not like to have the port removed at this point. If the port is going to remain, we would recommend delivering abx through it. If ptcontinues to be bacteremic, then the port should be removed. DC Rocephin ceftriaxone, continue Vancomycin. Echocardiogram. Panorex shows Evaluation of the central structures are significantly limitedby motion. Within limits of the motion degraded study, there is no apparent dental caries or definite evidence of periapical abscess. 10/23/2024: No adverse events noted overnight. Echocardiogram is still pending. Pt is adamant aboutnot having his port pulled. He is an extremely difficult stick. Patient states that he is will not consent to having the port removed even for a few days. He notes that he has NO veins and Vascular access has a tough time getting blood or an IV even with US guidance. Will attempt to get Blood Cultures tomorrow AM. At around 14 18 was notified by microbiology that the patient was growing Gram-positive cocci in clusters from the blood yesterday drawn at 5:18 a.m. infectious disease notified. Spoke with the patient who was very distraught feels he is not being treated adequately concerned about leaving against medical advice. Explained to the patient regarding the probability stroke myocardialinfarction and other events in the case patient chooses against medical advice. Patient understands. He is alert and oriented able to walk does have the capacity his own medical decision. At this time we will continue with vancomycin Interventional Radiology has also been consulted to have the port removed. Two sets of blood cultures 1 from the central line in 1 from the periphery has been ordered to be done stat. 10/24/2024: No adverse events noted overnight. Vitals reviewed labs reviewed this morning. White blood cell count of 9.97 hemoglobin of 8.1 grams/deciliter hematocrit of 23.5% with a platelet count of 382. Differential reviewed, WNL. Labs reviewed showing a downtrending procalcitonin as well as a downtrending ESR and CRP. Blood culture taken from left arm as well as from central line. Discussed with the patient and with Infectious Disease, the patient is adamant about not removing the port. Cancelled port removal. IR made aware. At this time we will monitor the patient cautiously, hematology reached out in regards to having a exchange transfusion we will hold off until the patient is stable. Continue with IV infusion. Patient continues to refuse PORT exchange. Patient is A&O x3 understands the risks and benefit he has capacity to make medical decisions at his own volition. 10/25/2024: No adverse events noted overnight. Vitals reviewed, blood pressure this morning is 151/97. Labs reviewed showing a white blood cell count 11.83 hemoglobin 7.3 grams/deciliter hematocrit 21.2% with a platelet count of 400 absolute neutrophil count of 6.61 with a monocyte 0.98 with absolute basophil count of 0.11. Sed rate is 18. Pt is lying in bed, he is feeling a little bit better today. 10/26/2024: No adverse events noted overnight. Vitals reviewed, blood pressure this morning is 152/103. Labs reviewed showing a white blood cell count 9.74 Hgb 7.6 g/dL, Hct 22.1% PLT 396. Differential notes Lymphocytes absolute 3.97, Monocytes absolute 0.90, Basophils 0.11, Immature Granulocyte 0.07. Electrolytes are notable for a PO4 of 4.6, Procalcitonin 0.72, CRP 15.0, ESR 19. Blood Culture from arm 10/24/2024 is positive for Gram + positive cocci. Continuing Vancomycin consider adding Teflaro ceftraoline for adjuvant therapy. Pt is lying in bed and immediately starts looking at his phonewhen this automatic typewriter inspector and case resolution specialist came into the room. 10/27/2024: No adverse events noted overnight. Vital signs, blood pressure is still elevated at 152/113 patient is still in a lot of pain. Labs are reviewed notable for a white blood cell count of 9.12 hemoglobin of 7.4 hematocrit of 21.8% with a platelet count of 388. Differential noted. Electrolytes within normal limits calcium of 8.4 phosphorus of 5.1 with a procalcitonin of 0.49 downtrending C-reactive protein of 12.5 and a sed rate 20. Patient continues to endorse severe pain feeling very crummy. New set of blood culture collected from the left a.c. this morning wound culture as well as blood culture from the port has been collected yesterday at 2:22 p.m.. Patient is stable still feeling very bad. Doesn't want to Decrease Dilaudid. 10/28/2024: No adverse events noted overnight. Vital signs, blood pressure this AM is 165/97. Pain is a little better. Will decreased Dilaudid to 1 mg IVP Q3h PRN and Oxycodone 40 mg PO Q4h PRN. 10/29/2024: No adverse events noted overnight. Vital signs, they are WNL. Labs are notable for WBC 10.45 Hgb 7.9 Hct 23.1% PLT 383. Differential reviewed. BMP reviewed Mag 1.8 PO4 4.7. Procalcitonin 0.28, CRP 8.1 ESR 26. Patient is still in pain, Had high BP given Nifedipine 30 mg XL PO at 0030. Magnesium repleted. Infectious Disease has signed off we will do IV vancomycin for 14 days ending on November 09202410/30/2024: No adverse events noted overnight. Vital signs has been reviewed limits this morning blood pressure is 136/81. Labs are notable for a white blood cell count 8.56 with a hemoglobin 7.5 grams/deciliter with a hematocrit 22.6% platelet count is 359. Differential is within normal limits at this time. ESR is 18. Patient is lying in bed still on IV Dilaudid no issues. We will decrease Dilaudid tomorrow. 10/31/2024: No adverse events noted overnight. Vital signs has been reviewed limits this morning. BP was 145/98. Labs are notable for a white blood cell count 10.40 with a hemoglobin of 7.5 g/dL hematocrit of 22.8% platelet count is 366. Differential is within normal limits. Electrolytes has been reviewed magnesium is 1.8 mEq we will replete. No issues today. Plan to DC tomorrow or Tuesday pendingOPAT. Review of Systems All other systems reviewed and are negative. Objective Vitals Temp: [36.6 ??C (97.8 ??F)-37 ??C (98.6 ??F)] 36.7 ??C (98.1 ??F) Heart Rate: [82-107] 99 Resp: [16-21] 20 BP: (127-159)/(69-117) 145/98 Physical Exam Constitutional: General: He is not in acute distress. Appearance: Normal appearance. He is normal weight. He is not ill-appearing or diaphoretic. Eyes: General: No scleral icterus. Cardiovascular: Rate and Rhythm: Normal rate. Pulmonary: Effort: Pulmonary effort is normal. No respiratory distress. Chest: Comments: Chest Wall has a port on the patient Right side of the chest. Abdominal: General: Abdomen is flat. There is no distension. Palpations: Abdomen is soft. Musculoskeletal: General: No swelling. Normal range of motion. Cervical back: Normal range of motion. Right lower leg: No edema. Left lower leg: No edema. Skin: General: Skin is warm. Capillary Refill: Capillary refill takes less than 2 seconds. Neurological: General: No focal deficit present. Mental Status: He is alert and oriented to person, place, and time. Mental status is at baseline. Assessment & Plan Blood transfusion reaction, initial encounter Moshe Maddox is a 29 y/o Male with a known medical history of Sickle Cell Disease and Hepatitis C presents after fever first noticed after blood transfusion. Bacteremia: Blood cultures (8/15) from Hand growing Streptococcus mitis/oralis group. Blood Cultures (8/15) from port growing Staphylococcus coagulase negative, MecA Positive. Panorex (8/18) showed: Evaluation of the central structures are significantly limited by motion. Within limits of the motion degraded study, there is no apparent dental caries or definite evidence of periapical abscess. Repeat blood cultures (8/18) are NGTD. Echocardiogram shows All cardiac valves were reasonably well interrogated with 2D imaging and/or Doppler assessment and no significant valve regurgitation or stenosis is seen. There is no definite echocardiographic evidence of endocarditis. Compared to the most recently available prior study, and allowing for differences in image quality and technique, there is no significant interval change noted. With left ventricular systolic function of 55-60%. Contacted Interventional Radiology, holding procedure to remove Port. At this time patient does not want his port removed. He has stated that is his only form of access that is he needs for the exchange transfusion. Thus he continues to refuse any IV line or IV placement. Infectious Disease made aware state itis patient's decision they can only inform him of their recommendation. Antibiotics (started 8/16/25)--Vanc (for Staph) thru the port Pharmacy to help DOSE, thank you Consider 14 days of ABX from the last negative Blood Culture thus we will and antibiotics on November 09, 2024 Volume Resuscitation - LR 150mL/hr Repeat Blood Culture. Sickle cell acute pain crisis & Sickle cell anemia: continue hydroxyurea 500mg BID, folic acid 1mg daily Pain control Hydromorphone 1 mg IV q3h PRN diphenhydramine 50 mg IV q4h PRN home oxycodone 40 mg q4h PRN diclofenac gel 4 g QID PRN acetaminophen 650 mg q8h PRN, methocarbamol 750mg QID PRN, lidoderm patch daily Bowel Regimen: senna 17.2 mg daily Hold off on any exchange transfusion until patient is stable. 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 HBV Surface Ag negative, Hep B core Total AB positive Hepatology follow-up at discharge Tobacco Use Disorder (Vapes) - he declined NRT FENGI: Regular DVT prophylaxis: Eliquis apixaban 5 mg PO BID GI prophylaxis: NONE Code status: Full Code Disposition: Home when stable. Saw Solano MD Internal Medicine Hospitalist [employer] Department of Internal Medicine Division [place] [address] Preferred method is secure chat or cell phone at [phone] Medically Ready for Discharge:Anticipated in 2-4 Days * Care Plan - Yojana Knight - 10/31/2024 4:48 AM EDT Problem: Adult Inpatient Plan of Care Goal: Plan of Care Review Outcome: Ongoing, Progressing Flowsheets (Taken 10/25/20242220 by Kelli Cunningham, RN) Progress: improving Outcome Evaluation: Pt's will receive around the clock pain medication, per pt request and assessment Plan of Care Reviewed With: patient Goal: Patient-Specific Goal (Individualized) Outcome: Ongoing, Progressing Flowsheets (Taken 10/30/20241999) Patient/Family-Specific Goals (Include Timeframe): pt will remain free from harm this shift Individualized Care Needs: safety Anxieties, Fears or Concerns: none stated Goal: Absence of Hospital-Acquired Illness or Injury Outcome: Ongoing, Progressing Goal: Optimal Comfort and Wellbeing Outcome: Ongoing, Progressing Problem: Infection Goal: Absence of Infection Signs and Symptoms Outcome: Ongoing, Progressing Intervention: Prevent or Manage Infection Flowsheets Taken 10/30/20241999 by Bridget Rodriguez RN Isolation Precautions: contact precautions maintained Taken 10/25/2024 222 by Kelli Cunningham RN Infection Management: aseptic technique maintained Fever Reduction/Comfort Measures: lightweight bedding lightweight clothing Problem: Pain Acute Goal: Optimal Pain Control and Function Outcome: Ongoing, Progressing Intervention: Optimize Psychosocial Wellbeing Flowsheets (Taken 10/25/2024 1354 by Channing Wallis RN) Supportive Measures: active listening utilized decision-making supported goal-setting facilitated mindfulness techniques promoted positive reinforcement provided Diversional Activities: smartphone television Spiritual Activities Assistance: hope instilled Intervention: Develop Pain Management Plan Flowsheets (Taken 10/31/2024 0437) Pain Management Interventions: medication (see MAR) Problem: Sickle Cell Disease Goal: Optimal Cerebral Tissue Perfusion Outcome: Ongoing, Progressing Intervention: Protect and Optimize Cerebral Perfusion Flowsheets Taken 10/30/20241999 by Yojana Knight Head of Bed (HOB) Positioning: HOB elevated Taken 10/28/20242215 by Yojana Knight Sensory Stimulation Regulation: lighting decreased Taken 10/27/2024 1325 by Samaria Pettit RN Cerebral Perfusion Promotion: blood pressure monitored Taken 10/25/2024 222 by Kelli Cunningham RN Fever Reduction/Comfort Measures: lightweight bedding lightweight clothing Goal: Optimal Coping with Sickle Cell Disease Outcome: Ongoing, Progressing Goal: Effective Tissue Perfusion Outcome: Ongoing, Progressing Intervention: Maintain Adequate Tissue Perfusion Flowsheets (Taken 10/27/2024 0150 by Jen Nolen RN) Fluid/Electrolyte Management: fluids provided Goal: Absence of Infection Signs and Symptoms Outcome: Ongoing, Progressing Intervention: Prevent or Manage Infection Flowsheets Taken 10/30/20241999 by Bridget Rodriguez RN Isolation Precautions: contact precautions maintained Taken 10/27/2024 1325 by Pettit, Samaria F, RN Infection Prevention: environmental surveillance performed hand hygiene promoted single patient room provided rest/sleep promoted Taken 10/25/2024 222 by Kelli Cunningham RN Infection Management: aseptic technique maintained Fever Reduction/Comfort Measures: lightweight bedding lightweight clothing Goal: Optimal Pain Control and Function Outcome: Ongoing, Progressing Intervention: Manage Acute Pain Flowsheets Taken 10/31/2024 0437 by Yojana Knight Pain Management Interventions: medication (see MAR) Taken 10/25/2024 1354 by Channing Wallis, RN Diversional Activities: smartphone television Intervention: Acknowledge Underlying Chronic Pain Flowsheets (Taken 10/27/2024 0150 by Jen Nolen, RN) Medication Review/Management: medications reviewed high-risk medications identified Goal: Optimal Oxygenation Outcome: Ongoing, Progressing Intervention: Optimize Oxygenation Flowsheets Taken 10/29/2024 2355 Airway/Ventilation Management: oxygen therapy provided Taken 10/29/20241999 Cough And Deep Breathing: done independently per patient Problem: Fall Injury Risk Goal: Absence of Fall and Fall-Related Injury Outcome: Ongoing, Progressing Intervention: Identify and Manage Contributors Flowsheets (Taken 10/27/2024 0150 by Jen Nolen, RN) Medication Review/Management: medications reviewed high-risk medications identified Intervention: Promote Injury-Free Environment Flowsheets (Taken 10/30/20241999 by Bridget Rodriguez, NASEEM) Safety Promotion/Fall Prevention: clutter-free environment maintained * Significant Event - Bravo Vyas MD - 10/30/2024 11:23 AM EDT ID OPAT INTAKE NOTE: Transitions of Care Summary OPAT Category: Standard OPAT, pending nurse navigator evaluation If patient enrolled into Modified OPAT Program list reason (ONLY if no Nurse Navigator assessment required): Not applicable Patient lives out of state: No Referring ID Physician (Fellow/Attending): Lilliam Diagnosis: Bacteremia, list source: PORT IV Access: Port Antimicrobial Regimen: Antimicrobials (including doses): Vanco (pharmacy to dose) Start date: 10/26/24 Projected End Date: 11/09/24 Transition to oral therapy: No If yes, antimicrobial (with dose/end dates): Future Imaging: None Lab Monitoring (weekly, preferably on Mondays unless otherwise specified): CBC w/ differential *CRP for patients with bone/joint infections and endocarditis or endovascular infections Antimicrobial specific labs: Vancomycin: BUN, SrCr, and vancomycin level (random if continuous, trough if intermittent) Please fax all labs to: ID OPAT Team Attn: Jagdish Fax #: [phone] Appointments: (Dr. Dubon AM Insert ID Provider; date and time) at [address] [place] [address] (Select Option 3 for IV Antibiotic / PICC line related issues) For questions regarding OPAT prior to discharge, reach out to the OPAT team via [employer] Secure Chat (Group: OPAT Referral Team). For all questions regarding OPAT after discharge should be directed to the OPAT Team at (Select Option 3 for IV Antibiotics/PICC Issues) between 8am-5pm. After 5 pm, or during weekends/ holidays, please call the paging meat grading machine operator at to reach the on-call ID fellow. PLEASE NOTIFY THE ID CONSULTING SERVICE OF ANY QUESTIONS REGARDING THESE RECOMMENDATIONS OR WITH ANY ANTIMICROBIAL CHANGES THAT OCCUR AFTER THE DATE/TIME OF THIS OPAT INTAKE NOTE. * Care Plan - Tash Fox RN - 10/30/2024 7:37 AM EDT Problem: Adult Inpatient Plan of Care Goal: Plan of Care Review Outcome: Ongoing, Progressing Flowsheets (Taken 10/25/20242220 by Kelli Cunningham, RN) Progress: improving Outcome Evaluation: Pt's will receive around the clock pain medication, per pt request and assessment Plan of Care Reviewed With: patient Goal: Patient-Specific Goal (Individualized) Outcome: Ongoing, Progressing Flowsheets (Taken 10/29/20241999 by Yojana Knight) Patient/Family-Specific Goals (Include Timeframe): pt will remain free from harm this shift Individualized Care Needs: safety Anxieties, Fears or Concerns: none stated Goal: Absence of Hospital-Acquired Illness or Injury Outcome: Ongoing, Progressing Goal: Optimal Comfort and Wellbeing Outcome: Ongoing, Progressing Problem: Infection Goal: Absence of Infection Signs and Symptoms Outcome: Ongoing, Progressing Intervention: Prevent or Manage Infection Flowsheets Taken 10/29/20241999 by Yojana Knight Isolation Precautions: precautions maintained contact Taken 10/25/2024 2221 by Kelli Cunningham RN Infection Management: aseptic technique maintained Fever Reduction/Comfort Measures: lightweight bedding lightweight clothing Problem: Pain Acute Goal: Optimal Pain Control and Function Outcome: Ongoing, Progressing Intervention: Optimize Psychosocial Wellbeing Flowsheets (Taken 10/25/2024 1354 by Channing Wallis, RN) Supportive Measures: active listening utilized decision-making supported goal-setting facilitated mindfulness techniques promoted positive reinforcement provided Diversional Activities: smartphone television Spiritual Activities Assistance: hope instilled Intervention: Develop Pain Management Plan Flowsheets (Taken 10/30/2024 0608 by Yojana Knight) Pain Management Interventions: medication (see MAR) Problem: Sickle Cell Disease Goal: Optimal Cerebral Tissue Perfusion Outcome: Ongoing, Progressing Intervention: Protect and Optimize Cerebral Perfusion Flowsheets Taken 10/29/20241999 by Yojana Knight Head of Bed (HOB) Positioning: HOB elevated Taken 10/28/2024 2216 by Yojana Knight Sensory Stimulation Regulation: lighting decreased Taken 10/27/2024 1325 by Samaria Pettit RN Cerebral Perfusion Promotion: blood pressure monitored Taken 10/25/2024 2221 by Kelli Cunningham RN Fever Reduction/Comfort Measures: lightweight bedding lightweight clothing Goal: Optimal Coping with Sickle Cell Disease Outcome: Ongoing, Progressing Intervention: Support Psychosocial Adjustment Flowsheets Taken 10/27/2024 1325 by Samaria Pettit fiberglasser/Support System Care: involvement promoted presence promoted self-care encouraged support provided Taken 10/25/2024 1354 by Channing Wallis RN Supportive Measures: active listening utilized decision-making supported goal-setting facilitated mindfulness techniques promoted positive reinforcement provided Goal: Effective Tissue Perfusion Outcome: Ongoing, Progressing Intervention: Maintain Adequate Tissue Perfusion Flowsheets (Taken 10/27/2024 0150 by Jen Nolen, RN) Fluid/Electrolyte Management: fluids provided Goal: Absence of Infection Signs and Symptoms Outcome: Ongoing, Progressing Intervention: Prevent or Manage Infection Flowsheets Taken 10/29/20241999 by Yojana Knight Isolation Precautions: precautions maintained contact Taken 10/27/2024 1325 by Samaria Pettit, RN Infection Prevention: environmental surveillance performed hand hygiene promoted single patient room provided rest/sleep promoted Taken 10/25/2024 2221 by Kelli Cunningham, NASEEM Infection Management: aseptic technique maintained Fever Reduction/Comfort Measures: lightweight bedding lightweight clothing Goal: Optimal Pain Control and Function Outcome: Ongoing, Progressing Intervention: Manage Acute Pain Flowsheets Taken 10/30/2024 0608 by Yojana Knight Pain Management Interventions: medication (see MAR) Taken 10/25/2024 1354 by Channing Wallis RN Diversional Activities: smartphone television Intervention: Acknowledge Underlying Chronic Pain Flowsheets (Taken 10/27/2024 0150 by Jen Nolen, NASEEM) Medication Review/Management: medications reviewed high-risk medications identified Goal: Optimal Oxygenation Outcome: Ongoing, Progressing Intervention: Optimize Oxygenation Flowsheets Taken 10/29/2024 2355 by Yojana Knight Airway/Ventilation Management: oxygen therapy provided Taken 10/29/20241999 by Yojana Knight Cough And Deep Breathing: done independently per patient Problem: Fall Injury Risk Goal: Absence of Fall and Fall-Related Injury Outcome: Ongoing, Progressing Intervention: Identify and Manage Contributors Flowsheets (Taken 10/27/2024 0150 by Jen Nolen, NASEEM) Medication Review/Management: medications reviewed high-risk medications identified Intervention: Promote Injury-Free Environment Flowsheets (Taken 10/29/20241999 by Yojana Knight) Safety Promotion/Fall Prevention: safety round/check completed * Progress Notes - Saw Solano MD - 10/30/2024 6:49 AM EDT Abdoul Maddox is a 29 y.o. 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 Patient premedicated prior to initiation of 1st unit for exchange with acetaminophen and famotidine. Patient reports within 4-6 minutes after starting the acute onset of chills, palpitations, diffuseitching, and severe sharp LBP radiating up into his neck .Transfusion was stopped and diphenhydramine along with home oxycodone and 250ml NS bolus given. Symptoms persisted with 9/10 back pain and temp up to 101F, thus brought to ER for evaluation. Febrile in ED to 102.4F, tachy 100's, other VSS. Labs pertinent for WBC 32.9, Hgb stable at 7, retic count 227.3, INR 1.4, LDH 1,369. CXR no acute findings. Transfusion reaction and BCX collected. Hem advised admit for pain control and further infectious work-up. 10/20/2024: No acute events overnight. 10/21/2024: No acute events overnight. 10/22/2024: No acute events overnight. As per ID, Ideally, we would recommend removing the port. Ptunderstands standard of care would be to remove the port but would not like to have the port removed at this point. If the port is going to remain, we would recommend delivering abx through it. If ptcontinues to be bacteremic, then the port should be removed. DC Rocephin ceftriaxone, continue Vancomycin. Echocardiogram. Panorex shows Evaluation of the central structures are significantly limitedby motion. Within limits of the motion degraded study, there is no apparent dental caries or definite evidence of periapical abscess. 10/23/2024: No adverse events noted overnight. Echocardiogram is still pending. Pt is adamant aboutnot having his port pulled. He is an extremely difficult stick. Patient states that he is will not consent to having the port removed even for a few days. He notes that he has NO veins and Vascular access has a tough time getting blood or an IV even with US guidance. Will attempt to get Blood Cultures tomorrow AM. At around 14 18 was notified by microbiology that the patient was growing Gram-positive cocci in clusters from the blood yesterday drawn at 5:18 a.m. infectious disease notified. Spoke with the patient who was very distraught feels he is not being treated adequately concerned about leaving against medical advice. Explained to the patient regarding the probability stroke myocardialinfarction and other events in the case patient chooses against medical advice. Patient understands. He is alert and oriented able to walk does have the capacity his own medical decision. At this time we will continue with vancomycin Interventional Radiology has also been consulted to have the port removed. Two sets of blood cultures 1 from the central line in 1 from the periphery has been ordered to be done stat. 10/24/2024: No adverse events noted overnight. Vitals reviewed labs reviewed this morning. White blood cell count of 9.97 hemoglobin of 8.1 grams/deciliter hematocrit of 23.5% with a platelet count of 382. Differential reviewed, WNL. Labs reviewed showing a downtrending procalcitonin as well as a downtrending ESR and CRP. Blood culture taken from left arm as well as from central line. Discussed with the patient and with Infectious Disease, the patient is adamant about not removing the port. Cancelled port removal. IR made aware. At this time we will monitor the patient cautiously, hematologyreached out in regards to having a exchange transfusion we will hold off until the patient is stable. Continue with IV infusion. Patient continues to refuse PORT exchange. Patient is A&O x3 understands the risks and benefit he has capacity to make medical decisions at his own volition. 10/25/2024: No adverse events noted overnight. Vitals reviewed, blood pressure this morning is 151/97. Labs reviewed showing a white blood cell count 11.83 hemoglobin 7.3 grams/deciliter hematocrit 21.2% with a platelet count of 400 absolute neutrophil count of 6.61 with a monocyte 0.98 with absolute basophil count of 0.11. Sed rate is 18. Pt is lying in bed, he is feeling a little bit better today. 10/26/2024: No adverse events noted overnight. Vitals reviewed, blood pressure this morning is 152/103. Labs reviewed showing a white blood cell count 9.74 Hgb 7.6 g/dL, Hct 22.1% PLT 396. Differential notes Lymphocytes absolute 3.97, Monocytes absolute 0.90, Basophils 0.11, Immature Granulocyte 0.07. Electrolytes are notable for a PO4 of 4.6, Procalcitonin 0.72, CRP 15.0, ESR 19. Blood Culture from arm 10/24/2024 is positive for Gram + positive cocci. Continuing Vancomycin consider adding Teflaro ceftraoline for adjuvant therapy. Pt is lying in bed and immediately starts looking at his phonewhen this automatic typewriter inspector and case resolution specialist came into the room. 10/27/2024: No adverse events noted overnight. Vital signs, blood pressure is still elevated at 152/113 patient is still in a lot of pain. Labs are reviewed notable for a white blood cell count of 9.12 hemoglobin of 7.4 hematocrit of 21.8% with a platelet count of 388. Differential noted. Electrolytes within normal limits calcium of 8.4 phosphorus of 5.1 with a procalcitonin of 0.49 downtrending C-reactive protein of 12.5 and a sed rate 20. Patient continues to endorse severe pain feeling very crummy. New set of blood culture collected from the left a.c. this morning wound culture as well as blood culture from the port has been collected yesterday at 2:22 p.m.. Patient is stable still feeling very bad. Doesn't want to Decrease Dilaudid. 10/28/2024: No adverse events noted overnight. Vital signs, blood pressure this AM is 165/97. Pain is a little better. Will decreased Dilaudid to 1 mg IVP Q3h PRN and Oxycodone 40 mg PO Q4h PRN. 10/29/2024: No adverse events noted overnight. Vital signs, they are WNL. Labs are notable for WBC 10.45 Hgb 7.9 Hct 23.1% PLT 383. Differential reviewed. BMP reviewed Mag 1.8 PO4 4.7. Procalcitonin 0.28, CRP 8.1 ESR 26. Patient is still in pain, Had high BP given Nifedipine 30 mg XL PO at 0030. Magnesium repleted. Infectious Disease has signed off we will do IV vancomycin for 14 days ending on November 09202410/30/2024: No adverse events noted overnight. Vital signs has been reviewed limits this morning blood pressure is 136/81. Labs are notable for a white blood cell count 8.56 with a hemoglobin 7.5 grams/deciliter with a hematocrit 22.6% platelet count is 359. Differential is within normal limits at this time. ESR is 18. Patient is lying in bed still on IV Dilaudid no issues. We will decrease Dilaudid tomorrow. Review of Systems All other systems reviewed and are negative. Objective Vitals Temp: [36.6 ??C (97.8 ??F)-36.7 ??C (98.1 ??F)] 36.7 ??C (98.1 ??F) Heart Rate: [74-90] 88 Resp: [12-18] 18 BP: (129-164)/(81-107) 136/81 Physical Exam Constitutional: General: He is not in acute distress. Appearance: Normal appearance. He is normal weight. He is not ill-appearing or diaphoretic. Eyes: General: No scleral icterus. Cardiovascular: Rate and Rhythm: Normal rate. Pulmonary: Effort: Pulmonary effort is normal. No respiratory distress. Chest: Comments: Chest Wall has a port on the patient Right side of the chest. Abdominal: General: Abdomen is flat. There is no distension. Palpations: Abdomen is soft. Musculoskeletal: General: No swelling. Normal range of motion. Cervical back: Normal range of motion. Right lower leg: No edema. Left lower leg: No edema. Skin: General: Skin is warm. Capillary Refill: Capillary refill takes less than 2 seconds. Neurological: General: No focal deficit present. Mental Status: He is alert and oriented to person, place, and time. Mental status is at baseline. Assessment & Plan Blood transfusion reaction, initial encounter Moshe Maddox is a 29 y/o Male with a known medical history of Sickle Cell Disease and Hepatitis C presents after fever first noticed after blood transfusion. Bacteremia: Blood cultures (8/15) from Hand growing Streptococcus mitis/oralis group. Blood Cultures (8/15) from port growing Staphylococcus coagulase negative, MecA Positive. Panorex (10/22) showed: Evaluation of the central structures are significantly limited by motion. Within limits of the motion degraded study, there is no apparent dental caries or definite evidence of periapical abscess. Repeat blood cultures (/) are NGTD. Echocardiogram shows All cardiac valves were reasonably well interrogated with 2D imaging and/or Doppler assessment and no significant valve regurgitation or stenosis is seen. There is no definite echocardiographic evidence of endocarditis. Compared to the most recently available prior study, and allowing for differences in image quality and technique, there is no significant interval change noted. With left ventricular systolic function of 55-60%. Contacted Interventional Radiology, holding procedure to remove Port. At this time patient does not want his port removed. He has stated that is his only form of access that is he needs for the exchange transfusion. Thus he continues to refuse any IV line or IV placement. Infectious Disease made aware state itis patient's decision they can only inform him of their recommendation. Antibiotics (started 10/20/24)--Vanc (for Staph) thru the port Pharmacy to help DOSE, thank you Consider 14 days of ABX from the last negative Blood Culture thus we will and antibiotics on November 09, 2024 Volume Resuscitation - LR 150mL/hr Repeat Blood Culture. Sickle cell acute pain crisis & Sickle cell anemia: continue hydroxyurea 500mg BID, folic acid 1mg daily Pain control Hydromorphone 1 mg IV q3h PRN diphenhydramine 50 mg IV q4h PRN home oxycodone 40 mg q4h PRN diclofenac gel 4 g QID PRN acetaminophen 650 mg q8h PRN, methocarbamol 750mg QID PRN, lidoderm patch daily Bowel Regimen: senna 17.2 mg daily Hold off on any exchange transfusion until patient is stable. 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 HBV Surface Ag negative, Hep B core Total AB positive Hepatology follow-up at discharge Tobacco Use Disorder (Vapes) - he declined NRT FENGI: Regular DVT prophylaxis: Eliquis apixaban 5 mg PO BID GI prophylaxis: NONE Code status: Full Code Disposition: Home when stable. Saw Solano MD Internal Medicine Hospitalist [employer] pay[employer] Department of Internal Medicine Division [place] [address] Preferred method is secure chat or cell phone at [phone] Medically Ready for Discharge:Anticipated in 2-4 Days * Care Plan - Yojana Knight - 10/30/2024 12:01 AM EDT Problem: Adult Inpatient Plan of Care Goal: Plan of Care Review Outcome: Ongoing, Progressing Flowsheets (Taken 10/25/20242220 by Kelli Cunningham, RN) Progress: improving Outcome Evaluation: Pt's will receive around the clock pain medication, per pt request and assessment Plan of Care Reviewed With: patient Goal: Patient-Specific Goal (Individualized) Outcome: Ongoing, Progressing Flowsheets (Taken 10/29/20241999) Patient/Family-Specific Goals (Include Timeframe): pt will remain free from harm this shift Individualized Care Needs: safety Anxieties, Fears or Concerns: none stated Goal: Absence of Hospital-Acquired Illness or Injury Outcome: Ongoing, Progressing Goal: Optimal Comfort and Wellbeing Outcome: Ongoing, Progressing Problem: Infection Goal: Absence of Infection Signs and Symptoms Outcome: Ongoing, Progressing Intervention: Prevent or Manage Infection Flowsheets Taken 10/29/20241999 by Yojana Knight Isolation Precautions: precautions maintained contact Taken 10/25/20242220 by Kelli Cunningham RN Infection Management: aseptic technique maintained Fever Reduction/Comfort Measures: lightweight bedding lightweight clothing Problem: Pain Acute Goal: Optimal Pain Control and Function Outcome: Ongoing, Progressing Intervention: Optimize Psychosocial Wellbeing Flowsheets (Taken 10/25/2024 1354 by Channing Wallis RN) Supportive Measures: active listening utilized decision-making supported goal-setting facilitated mindfulness techniques promoted positive reinforcement provided Diversional Activities: [employer] television Spiritual Activities Assistance: hope instilled Intervention: Develop Pain Management Plan Flowsheets (Taken 10/29/20242124) Pain Management Interventions: medication (see MAR) Problem: Sickle Cell Disease Goal: Optimal Cerebral Tissue Perfusion Outcome: Ongoing, Progressing Intervention: Protect and Optimize Cerebral Perfusion Flowsheets Taken 10/29/20241999 by Yojana Knight Head of Bed (HOB) Positioning: HOB elevated Taken 10/28/20242215 by Yojana Knight Sensory Stimulation Regulation: lighting decreased Taken 10/27/2024 1325 by Samaria Pettit RN Cerebral Perfusion Promotion: blood pressure monitored Taken 10/25/2024 222 by Kelli Cunningham RN Fever Reduction/Comfort Measures: lightweight bedding lightweight clothing Goal: Optimal Coping with Sickle Cell Disease Outcome: Ongoing, Progressing Intervention: Support Psychosocial Adjustment Flowsheets Taken 10/27/2024 1325 by Samaria Pettit RN Family/Support System Care: involvement promoted presence promoted self-care encouraged support provided Taken 10/25/2024 1354 by Channing Wallis RN Supportive Measures: active listening utilized decision-making supported goal-setting facilitated mindfulness techniques promoted positive reinforcement provided Goal: Effective Tissue Perfusion Outcome: Ongoing, Progressing Intervention: Maintain Adequate Tissue Perfusion Flowsheets (Taken 10/27/2024 0150 by Jen Nolen, NASEEM) Fluid/Electrolyte Management: fluids provided Goal: Absence of Infection Signs and Symptoms Outcome: Ongoing, Progressing Intervention: Prevent or Manage Infection Flowsheets Taken 10/29/20241999 by Yojana Knight Isolation Precautions: precautions maintained contact Taken 10/27/2024 1325 by Samaria Pettit, NASEEM Infection Prevention: environmental surveillance performed hand hygiene promoted single patient room provided rest/sleep promoted Taken 10/25/2024 222 by Kelli Cunningham RN Infection Management: aseptic technique maintained Fever Reduction/Comfort Measures: lightweight bedding lightweight clothing Goal: Optimal Pain Control and Function Outcome: Ongoing, Progressing Intervention: Manage Acute Pain Flowsheets Taken 10/29/20242124 by Yojana Knight Pain Management Interventions: medication (see MAR) Taken 10/25/2024 1354 by Channing Wallis RN Diversional Activities: smartphone television Goal: Optimal Oxygenation Outcome: Ongoing, Progressing Intervention: Optimize Oxygenation Flowsheets Taken 10/29/2024 2355 Airway/Ventilation Management: oxygen therapy provided Taken 10/29/20241999 Cough And Deep Breathing: done independently per patient Problem: Sickle Cell Disease Goal: Optimal Coping with Sickle Cell Disease Outcome: Ongoing, Progressing Intervention: Support Psychosocial Adjustment Flowsheets Taken 10/27/2024 1325 by Samaria Pettit fiberglasser/Support System Care: involvement promoted presence promoted self-care encouraged support provided Taken 10/25/2024 1354 by Channing Wallis RN Supportive Measures: active listening utilized decision-making supported goal-setting facilitated mindfulness techniques promoted positive reinforcement provided Problem: Sickle Cell Disease Goal: Optimal Cerebral Tissue Perfusion Outcome: Ongoing, Progressing Intervention: Protect and Optimize Cerebral Perfusion Flowsheets Taken 10/29/20241999 by Yojana Knight Head of Bed (HOB) Positioning: HOB elevated Taken 10/28/20242215 by Yojana Knight Sensory Stimulation Regulation: lighting decreased Taken 10/27/2024 1325 by Samaria Pettit, RN Cerebral Perfusion Promotion: blood pressure monitored Taken 10/25/20242220 by Kelli Cunningham RN Fever Reduction/Comfort Measures: lightweight bedding lightweight clothing Goal: Optimal Coping with Sickle Cell Disease Outcome: Ongoing, Progressing Intervention: Support Psychosocial Adjustment Flowsheets Taken 10/27/2024 1325 by Samaria Pettit, fiberglasser/Support System Care: involvement promoted presence promoted self-care encouraged support provided Taken 10/25/2024 1354 by Channing Wallis RN Supportive Measures: active listening utilized decision-making supported goal-setting facilitated mindfulness techniques promoted positive reinforcement provided Goal: Effective Tissue Perfusion Outcome: Ongoing, Progressing Intervention: Maintain Adequate Tissue Perfusion Flowsheets (Taken 10/27/2024 0150 by Jen Nolen, RN) Fluid/Electrolyte Management: fluids provided Goal: Absence of Infection Signs and Symptoms Outcome: Ongoing, Progressing Intervention: Prevent or Manage Infection Flowsheets Taken 10/29/20241999 by Yojana Knight Isolation Precautions: precautions maintained contact Taken 10/27/2024 1325 by Samaria Pettit RN Infection Prevention: environmental surveillance performed hand hygiene promoted single patient room provided rest/sleep promoted Taken 10/25/2024 222 by Kelli Cunningham RN Infection Management: aseptic technique maintained Fever Reduction/Comfort Measures: lightweight bedding lightweight clothing Goal: Optimal Pain Control and Function Outcome: Ongoing, Progressing Intervention: Manage Acute Pain Flowsheets Taken 10/29/20242124 by Yojana Knight Pain Management Interventions: medication (see MAR) Taken 10/25/2024 1354 by Channing Wallis RN Diversional Activities: smartphone television Goal: Optimal Oxygenation Outcome: Ongoing, Progressing Intervention: Optimize Oxygenation Flowsheets Taken 10/29/2024 2355 Airway/Ventilation Management: oxygen therapy provided Taken 10/29/20241999 Cough And Deep Breathing: done independently per patient Problem: Fall Injury Risk Goal: Absence of Fall and Fall-Related Injury Outcome: Ongoing, Progressing Intervention: Identify and Manage Contributors Flowsheets (Taken 10/27/2024 0150 by Jen Nolen, RN) Medication Review/Management: medications reviewed high-risk medications identified Intervention: Promote Injury-Free Environment Flowsheets (Taken 10/29/20241999) Safety Promotion/Fall Prevention: safety round/check completed * Progress Notes - Lauren Cummins RN - 10/29/2024 2:20 PM EDT Case Management Adult Progress Note Moshe Maddox 29 y.o. male CSN: [id number] Admission: 10/19/2024 5:31 PM Primary Problem: Blood transfusion reaction, initial encounter Anticipated Discharge Date: TBD;NMR Patient information: Primary Caregiver: Self Support System: Immediate family Daily Living Activities: Functional Status: Independent Living Arrangements: Family (Lives with mother) Type of Residence: Private residence, Single Level (1 step to enter home.) [address] [place] [address] Current DME: Equipment Currently Used at Home: none Income Information: Income Source: Disabled Income/Expense Information: Expenses exceed income Current Resources Utilized: Food [place] Housing Circumstances-Z Codes: Housing Circumstances (select all that apply): Low Income (101-300% Federal Poverty Guidlines) - Z596 Additional Comments: RNCM informed patient is NMR; bacteremia planned Port removal; but patient hasrefused- ID POC pending; patient will need IV Antibiotics- Standard OPAT per Nurse Navigator Antibiotics (started 10/20/24)--Vanc (for Staph) Consider 14 days of ABX from the last negative Blood Culture Sickle cell acute pain crisis & Sickle cell anemia:Pain control Lauren Cummins RN Case Management * Progress Notes - Samantha Melchor PharmD - 10/29/2024 10:06 AM EDT Pharmacokinetic Consult - Therapeutic Drug Monitoring HPI and Hospital Course: Moshe Maddox is a 29 y.o. male presenting with port associated bacteremia. Pharmacy consulted to assist with management of vancomycin therapy for Bacteremia. Random concentration therapeutic drug monitoring performed due to patient receiving continuous infusion. Creatinine, Plasma (mg/dL) Date/Time Value 10/29/2024 0612 0.71 Estimated Creatinine Clearance: 125 mL/min (by C-G formula based on SCr of 0.71 mg/dL). Vancomycin, Random, Plasma (ug/mL) Date/Time Value 10/29/2024 0612 27.4 AUC = 658 Assessment/Plan 1. Patient is Supratherapeutic for AUC of 400 - 600. Recommend to change to continuous infusion of vancomycin 2500 mg IV every 24 hours. For predicted AUC 470 2. Monitor renal function (SCr and BUN) and UOP at least 2-3x weekly or more frequently if renal function changes. 3. Recommend random vancomycin level with AM labs on Tuesday. Pharmacy will continue to follow, Samantha Melchor PharmD 10/29/2024 10:05 AM * Care Plan - Tash Fox RN - 10/29/2024 7:52 AM EDT Problem: Adult Inpatient Plan of Care Goal: Plan of Care Review Outcome: Ongoing, Progressing Flowsheets (Taken 10/25/20242220 by Kelli Cunningham, RN) Progress: improving Outcome Evaluation: Pt's will receive around the clock pain medication, per pt request and assessment Plan of Care Reviewed With: patient Goal: Patient-Specific Goal (Individualized) Outcome: Ongoing, Progressing Flowsheets (Taken 10/28/20241999 by Yojana Knight) Patient/Family-Specific Goals (Include Timeframe): pt will remain free from harm this shift Individualized Care Needs: safety Anxieties, Fears or Concerns: none stated Goal: Absence of Hospital-Acquired Illness or Injury Outcome: Ongoing, Progressing Goal: Optimal Comfort and Wellbeing Outcome: Ongoing, Progressing Problem: Infection Goal: Absence of Infection Signs and Symptoms Outcome: Ongoing, Progressing Intervention: Prevent or Manage Infection Flowsheets Taken 10/28/20241999 by Yojana Knight Isolation Precautions: precautions maintained contact Taken 10/25/20242220 by Kelli Cunningham, RN Infection Management: aseptic technique maintained Fever Reduction/Comfort Measures: lightweight bedding lightweight clothing Problem: Pain Acute Goal: Optimal Pain Control and Function Outcome: Ongoing, Progressing Intervention: Optimize Psychosocial Wellbeing Flowsheets (Taken 10/25/2024 1354 by Channing Wallis, RN) Supportive Measures: active listening utilized decision-making supported goal-setting facilitated mindfulness techniques promoted positive reinforcement provided Diversional Activities: smartphone television Spiritual Activities Assistance: hope instilled Intervention: Develop Pain Management Plan Flowsheets (Taken 10/29/2024 0701 by Yojana Knight) Pain Management Interventions: medication (see MAR) Problem: Sickle Cell Disease Goal: Optimal Cerebral Tissue Perfusion Outcome: Ongoing, Progressing Intervention: Protect and Optimize Cerebral Perfusion Flowsheets Taken 10/28/2024 2216 by Yojana Knight Sensory Stimulation Regulation: lighting decreased Taken 10/28/20241999 by Yojana Knight Head of Bed (HOB) Positioning: HOB elevated Taken 10/27/2024 1325 by Samaria Pettit, RN Cerebral Perfusion Promotion: blood pressure monitored Taken 10/25/2024 222 by Kelli Cunningham RN Fever Reduction/Comfort Measures: lightweight bedding lightweight clothing Goal: Optimal Coping with Sickle Cell Disease Outcome: Ongoing, Progressing Intervention: Support Psychosocial Adjustment Flowsheets Taken 10/27/20241324 by Samaria Pettit RN Family/Support System Care: involvement promoted presence promoted self-care encouraged support provided Taken 10/25/2024 1354 by Channing Wallis RN Supportive Measures: active listening utilized decision-making supported goal-setting facilitated mindfulness techniques promoted positive reinforcement provided Goal: Effective Tissue Perfusion Outcome: Ongoing, Progressing Intervention: Maintain Adequate Tissue Perfusion Flowsheets (Taken 10/27/2024 0150 by Jen Nolen RN) Fluid/Electrolyte Management: fluids provided Goal: Absence of Infection Signs and Symptoms Outcome: Ongoing, Progressing Intervention: Prevent or Manage Infection Flowsheets Taken 10/28/20241999 by Yojana Knight Isolation Precautions: precautions maintained contact Taken 10/27/2024 1325 by Samaria Pettit, RN Infection Prevention: environmental surveillance performed hand hygiene promoted single patient room provided rest/sleep promoted Taken 10/25/2024 222 by Kelli Cunningham RN Infection Management: aseptic technique maintained Fever Reduction/Comfort Measures: lightweight bedding lightweight clothing Goal: Optimal Pain Control and Function Outcome: Ongoing, Progressing Intervention: Manage Acute Pain Flowsheets Taken 10/29/2024 07 by Yojana Knight Pain Management Interventions: medication (see MAR) Taken 10/25/2024 1354 by Channing Wallis RN Diversional Activities: smartphone television Goal: Optimal Oxygenation Outcome: Ongoing, Progressing Intervention: Optimize Oxygenation Flowsheets (Taken 10/28/20241999 by Yojana Knight) Cough And Deep Breathing: done independently per patient Problem: Fall Injury Risk Goal: Absence of Fall and Fall-Related Injury Outcome: Ongoing, Progressing Intervention: Identify and Manage Contributors Flowsheets (Taken 10/27/2024 0150 by Jen Nolen, NASEEM) Medication Review/Management: medications reviewed high-risk medications identified Intervention: Promote Injury-Free Environment Flowsheets (Taken 10/28/20241999 by Yojana Knight) Safety Promotion/Fall Prevention: safety round/check completed * Progress Notes - Shawna Zarate MD - 10/29/2024 7:46 AM EDT Images from the original note were not included. GENERAL INFECTIOUS DISEASE PROGRESS NOTE Attending: Saw Solano MD Subjective: NAEON. Pt has continued fatigue and pain. Denies fevers or chills. Objective: Visit Vitals BP (!) 154/94 Pulse 90 Temp 36.7 ??C (98 ??F) (Oral) Resp 15 Ht 1.829 m (6') Wt 80 kg (176 lb 5.9 oz) SpO2 100% BMI 23.92 kg/m?? Smoking Status Former BSA 2.02 m?? Physical Exam Constitutional: General: He is not in acute distress. HENT: Head: Normocephalic. Mouth/Throat: Mouth: Mucous membranes are moist. Pharynx: Oropharynx is clear. Eyes: Conjunctiva/sclera: Conjunctivae normal. Cardiovascular: Rate and Rhythm: Normal rate and regular rhythm. Pulmonary: Effort: Pulmonary effort is normal. Breath sounds: Normal breath sounds. Chest: Comments: Port on right side of chest Abdominal: General: Abdomen is flat. Palpations: Abdomen is soft. Tenderness: There is no abdominal tenderness. Musculoskeletal: General: Normal range of motion. Cervical back: Normal range of motion. No tenderness. Skin: General: Skin is warm and dry. Neurological: General: No focal deficit present. Mental Status: He is alert and oriented to person, place, and time. Psychiatric: Mood and Affect: Mood normal. Behavior: Behavior normal. Labs: CBC WBC 10.45 (H) Hb 7.9 (L) Plt 383 (H) Hct 23.1 (L) ANC 5.31 BMP Na 139 Cl 104 BUN 7 Glu 92 K 4.3 Co2 25 Cr 0.71 Mg 1.8 (L), Phos 4.7 (H) LFT AST ?? AlkPhos ?? T Prot ?? ALK ?? Bili ?? Alb ?? D.Bili ?? Results from last 7 days Lab Units 10/29/24 0612 10/27/24 0519 10/26/24 0403 CRP mg/L 8.1* 12.5* 15.0* Results from last 7 days Lab Units 10/29/24 0612 10/27/24 0519 10/26/24 0403 SED RATE mm/hr 26* 20* 19* Medications: Current Medications[1] Imaging/Studies: Echo, Adult Transthoracic (TTE) Limited Left Ventricle: The left ventricular systolic function is normal. The LVEF is visually estimated at 55 - 60%. Unable to assess diastolic function. Right Ventricle: The right ventricular systolic function is normal. Unable to estimate the right ventricular systolic pressure (RVSP) due to inadequate TR signal. Right Atrium: There is a catheter/lead present in the right atrium. The catheter is deep within the atrium to the level of the tricuspid valve. IVC/SVC: Based on the IVC size and respiratory variation, the estimated right atrial pressure is 3mmHg. All cardiac valves were reasonably well interrogated with 2D imaging and/or Doppler assessment and no significant valve regurgitation or stenosis is seen. There is no definite echocardiographic evidence of endocarditis. Compared to the most recently available prior study, and allowing for differences in image quality and technique, there is no significant interval change noted. Micro: Susceptibility data from last 90 days. Collected Specimen Info Organism Ampicillin Ampicillin/Sulbactam Aztreonam Cefazolin Cefepime Susceptibility Ceftriaxone Ciprofloxacin Clindamycin Daptomycin Ertapenem Erythromycin Gentamicin Levofloxacin Linezolid 10/26/24 Swab from Cutaneous skin (specify site) Staphylococcus epidermidis R S R S S 10/24/24 Blood from Arm, Left Staphylococcus coagulase negative 10/22/24 Blood, Central Line Staphylococcus coagulase negative 10/20/24 Swab from Nares and Venecia Rectal Methicillin-Resistant Staphylococcus aureus 10/19/24 Blood, Venous Streptococcus sanguinis S Staphylococcus epidermidis (1) R S R S S Staphylococcus epidermidis (3) R S R S S 10/19/24 Blood from Hand, Left Streptococcus mitis/oralis group S 08/18/24 Blood, Venous Klebsiella pneumoniae ESBL, MDR (1) R R R R R R S S R S Klebsiella pneumoniae ESBL, MDR (2) R R R R R R S S R S 08/04/24 Blood from AC, Right Streptococcus mitis/oralis group (1) I S Gemella haemolysans Streptococcus mitis/oralis group (2) 08/04/24 Blood from Bicep, left Streptococcus mitis/oralis group S Rothia dentocariosa R R S Collected Specimen Info Organism Meropenem Minocycline Oxacillin Penicillin G Piperacillin/Tazobactam Tetracycline Tobramycin Trimethoprim/Sulfamethoxazole Vancomycin 10/26/24 Swab from Cutaneous skin (specify site) Staphylococcus epidermidis S R R S S 10/24/24 Blood from Arm, Left Staphylococcus coagulase negative 10/22/24 Blood, Central Line Staphylococcus coagulase negative 10/20/24 Swab from Nares and Venecia Rectal Methicillin-Resistant Staphylococcus aureus 10/19/24 Blood, Venous Streptococcus sanguinis I S Staphylococcus epidermidis (1) S R R S S Staphylococcus epidermidis (3) S R R S S 10/19/24 Blood from Hand, Left Streptococcus mitis/oralis group I S 08/18/24 Blood, Venous Klebsiella pneumoniae ESBL, MDR (1) S R R R R Klebsiella pneumoniae ESBL, MDR (2) S R R R R 08/04/24 Blood from AC, Right Streptococcus mitis/oralis group (1) S Gemella haemolysans Streptococcus mitis/oralis group (2) 08/04/24 Blood from Bicep, left Streptococcus mitis/oralis group I Rothia dentocariosa S S Results Procedure Component Value Units Date/Time Blood Culture (Aerobic/Anaerobet Set) [[id number]] Collected: 10/22/24 0516 Order Status: Completed Specimen: Blood, Central Line Updated: 10/23/24 0701 Culture No growth at day 1 Blood Culture (Aerobic/Anaerobet Set) [[id number]] (Abnormal) (Susceptibility) Collected: 10/19/242103 Order Status: Completed Specimen: Blood, Venous Updated: 10/22/242115 Culture Staphylococcus coagulase negative Comment: Isolated from aerobic and anaerobic culture bottles. Isolated from one set of blood culture bottles only. If workup required, contact bacteriology at [phone]. This organism may be associated with a contaminated culture. Correlate clinically. The organism value for this result has been updated. These results have been appended to the previously preliminary verified report. Streptococcus sanguinis Comment: Isolated from anaerobic culture bottle only. The organism value for this result has been updated. These results have been appended to the previously preliminary verified report. Gram Stain Gram positive cocci in chains Comment: Organism seen in Anaerobic Blood Culture Bottle. Positivity Date and Time to Detection: 10/20/2024. at 00 Day(s) and 18 Hour(s). This is an appended report. These results have been appended to a previously preliminary verified report. Gram positive cocci in clusters Comment: Organism seen in Anaerobic Blood Culture Bottle. Positivity Date and Time to Detection: 10/20/2024. at 00 Day(s) and 18 Hour(s). This is an appended report. These results have been appended to a previously preliminary verified report. Gram positive cocci in clusters Comment: Organism seen in Aerobic Blood Culture Bottle. Positivity Date and Time to Detection: 10/20/2024 at 00 Day(s) and 18 Hour(s). This is an appended report. These results have been appended to a previously preliminary verified report. Susceptibility Streptococcus sanguinis ETEST (Preliminary) Ceftriaxone Susceptible Penicillin G Intermediate Additional Susceptibilities and/or Identification [[id number]] Collected: 10/22/241653 Order Status: Completed Specimen: Blood from Hand, Left Additional Susceptibilities and/or Identification [[id number]] Collected: 10/22/241653 Order Status: Completed Specimen: Blood, Venous Blood Culture (Aerobic/Anaerobet Set) [[id number]] (Abnormal) (Susceptibility) Collected: 10/19/241954 Order Status: Completed Specimen: Blood from Hand, Left Updated: 10/21/242009 Culture Streptococcus mitis/oralis group Comment: Isolated from aerobic culture bottle only. This isolate has been identified using the FDA Approved Blue Source CA System The organism value for this result has been updated. These results have been appended to the previously preliminary verified report. This is a corrected result. Previous organism was Streptococcus Alpha Hemolytic on 10/21/2024 at 0753 EDT. Gram Stain Gram positive cocci in chains Comment: Organism seen in Aerobic Blood Culture Bottle. Positivity Date and Time to Detection: 10/20/2024 at 00 Day(s) and 11 Hour(s). This is an appended report. These results have been appended to a previously preliminary verified report. Narrative: Low blood volume submitted, results may be compromised Susceptibility Streptococcus mitis/oralis group ETEST (Preliminary) Ceftriaxone Susceptible Penicillin G Intermediate Multi Drug Resistance Test [[id number]] (Abnormal) Collected: 10/20/24 0310 Order Status: Completed Specimen: Swab from Nares and Venecia Rectal Updated: 10/21/24 0848 Culture Methicillin-Resistant Staphylococcus aureus Comment: The organism value for this result has been updated. These results have been appended to the previously preliminary verified report. <null> has been updated to reportable. Narrative: This test was developed and its performance characteristics determined by the [facility]. Although the media is FDA-approved, it is not FDA-approved for all specimen types submitted. The FDA has determined that such clearance or approval is not necessary. This test is used for surveillance purposes. It should not be regarded as investigational or for research. The [facility] is certified under the ClinicalLaboratory Improvement Amendments of 1988 (CLIA-88) as qualified to perform high complexity clinical laboratory testing. Bacterial ID Gram Positive [[id number]] (Abnormal) Collected: 10/19/242103 Order Status: Completed Specimen: Blood, Venous Updated: 10/21/24 0806 Staphylococcus Result Detected Comment: From aerobic bottle only Assess if contaminant or clinically relevant pathogen. Consider clinical stability and immune status of patient. These results have been appended to a previously final verified report. Staphylococcus epidermidis Result Detected Comment: From aerobic bottle only Assess if contaminant or clinically relevant pathogen. Consider clinical stability and immune status of patient. These results have been appended to a previously final verified report. Streptococcus Result Detected Comment: From anaerobic bottle only MECA Result Detected Comment: From aerobic bottle only These results have been appended to a previously final verified report. Narrative: Analytes include: Bacillus cereus group, Bacillus subtilis group, Corynebacterium, Cutibacterium acnes (P acnes), Enterococcus, Enterococcus faecalis, Enterococcus faecium, Lactobacillus, Listeria, Listeria monocytogenes, Micrococcus, Staphylococcus, Staphylococcus aureus, Staphylococcus epidermidis, Stapylcoccus lugdunesis, Streptococcus, Streptococcus agalactiae, Streptococcus anginosus group, Streptococcus pneumoniae, Streptococcus pyogenes, Wharton gram negative target, Wharton Miguel target and mecA, mecC, Mine and vanB resistance genes. NOTE: A Not Detected result for result for a resistance gene does not indicate susceptibility to antimicrobials by mechanisms other than carrying the resistance genes detected by the BCID-GP assay. . WHARTON MIGUEL: Inclusive of Miguel albicans, Miguel glabrata, Pichia kudriavzevii (formerly Candidakrusei) and Miguel parapsilosis only. . WHARTON GRAM NEGATIVE: Includes but not limited to Acinetobacter, Bacteroides, Enterobacteriaceae, Neisseria, Pseudomonas, Serratia, Stenotrophomonas maltophilia. . Reference Value: Not detected for all analytes tested. Micro: Transfusion bag culture: no growth day 5 BC 10/19 from left hand: strep mitis/oralis (1 out of 2 bottles) BC 10/19 from port: staph epidermidis (2 out of 2 bottles) (mecA positive), biotype 2 staph coagulase neg (1 out of 2 bottles), strep sanguinis (1 out of 2 bottles) BC 10/22 from port: staph coagulase neg (1 out of 2 bottles), ID: MRSE BC 10/23 from port: negative BC 10/24 peripheral: staph coag neg; Staph mecA detected BC 10/26: no growth day 2 BC 10/27 peripheral: no growth day 2 BC 10/28 from port: no growth day 1 BC 10/28: no growth day 1 Wound culture 10/26: staph epidermidis MRSA nares positive Antibiotics: Vanc: 10/20 - P Ceftriaxone: 10/20 - 10/22 Cefepime: 10/20 Assessment: Patient Summary: Moshe Maddox is a 29 y.o. male with PMHx sickle cell disease, anemia, chronic pain, multiple DVTon apixaban, stroke (childhood), HCV, and HTN who presented to ED on 10/19 from outpatient pheresis center for a transfusion reaction. Pt had double lumen port placed on 10/04 with IR. He was hospitalized at from 10/04-10/14 for acutepain crisis. On 10/19, within 4-6 minutes of RBC transfusion, pt developed fever, chills, itching, lightheadedness, nausea, severe sharp back pain radiating from his lumbar region into his neck. The transfusion was stopped and pt received diphenhydramine along with home oxycodone and 250ml NS bolus g iven. He had been premedicated with acetaminophen and famotidine. Pt continued to have fever up to 101 and was brought to the ED. In the ED, pt was febrile to 102.4, tachy to 100s. WBC 32.9, Hgb 7, INR 1.4, LDH 1,369, CRP 61.1. CXR no acute findings. Pt received cefepime on 10/20, started on ceftriaxone and vanc since 10/20. Ceftriaxone discontinued on 10/22 at ID rec given that Vanc should cover both staph and strep. Peripheral BC on 10/19 grew strep mitis/oralis (1 out of 2 bottles). BC on 10/19 from port grew staph epidermidis (mecA positive) (2 out of 2 bottles) and strep sanguinis (1 out of 2bottles). XR panorex 10/22 shows no apparent dental caries or definitive evidence of periapical abscess. BC from 10/22 growing staph coagulase neg (1 out of 2 bottles). BC from port on 10/23 showed no growth on day 2. BC 10/24 peripheral shows staph coag sarina, bacterial ID staph mecA positive. BC 10/26, 10/27, 10/28 negative to date. Echo shows no evidence of endocarditis. Port culture from 10/26 grew staph epi, likely normal skin sharon. Pt is currently afebrile with leukocytosis. WBC have downtrended (32.9 -> 10.45). Pt understandsstandard of care would be to remove the port but would not like to have the port removed at this point. IR had planned for port removal 10/24 but pt does not want the port removed. Pt may be more opento removing port if alternate sites were offered. We would recommend delivering his abx through theport. We would recommend continuing Vancomycin, continuous infusion. We would recommend 14 days of IV vancomycin from date of negative blood culture. If 10/26 culture remains negative, end date of 11/09. Pt should follow up outpatient with Kike Prado/ Dr. Dubon 11/06 at 9 AM. OPAT evaluated the patient: standard enrollment, he is willing to do continuous if needed. ID Problem List: #CLABSI #Strep bacteremia #MRSE bacteremia #sickle cell acute pain crisis #hepatitis C Recommendations: - Ideally, we would recommend removing the port. Pt understands standard of care would be to removethe port but would not like to have the port removed at this point. If the port is going to remain,we would recommend delivering abx through it. - Continue Vancomycin, administer through port, continuous infusion - Follow blood cultures - We would recommend 14 days of IV vancomycin from date of negative blood culture. If 10/26 culture remains negative, end date of 11/09. - Follow up with ID outpatient, Kike Prado/ Dr. Dubon 11/06 at 9 AM @ [facility] - OPAT evaluated: standard enrollment Thank you for allowing us to participate in this patient's care. GEN ID will sign off. Shawna Zarate MD PGY1 History, assessment, and plan discussed with ID attending Dr. Vyas [1] Current Facility-Administered Medications Medication Dose Route Frequency Provider Last Rate Last Admin acetaminophen (Tylenol) tablet 650 mg 650 mg Oral q8h PRN Malik Trent [employer] 650 mg at 10/24/24 1553 apixaban (Eliquis) tablet 5 mg 5 mg Oral BID Saw Solano MD 5 mg at 10/29/24 0827 bisacodyl (Dulcolax) EC tablet 10 mg 10 mg Oral Daily PRN Malik Trent APRN diclofenac (Voltaren) 1 % topical gel 4 g 4 g Topical 4x daily PRN Malik Trent APRN diphenhydrAMINE (Benadryl) injection 50 mg 50 mg Intravenous q4h PRN Michael Andrade MD 50 mg at 10/29/24 1420 folic acid (Folvite) tablet 1 mg 1 mg Oral Daily Malik Trent [employer] 1 mg at 10/29/24 0828 hydrALAZINE (Apresoline) injection 10 mg 10 mg Intravenous q6h PRN Saw Solano MD 10 mg at 10/29/24 1306 HYDROmorphone (Dilaudid) injection 1 mg 1 mg Intravenous q3h PRN Saw Solano MD 1 mg at 10/29/24 1420 hydroxyurea (Hydrea) capsule 500 mg 500 mg Oral BID TwanMalik APRN 500 mg at 10/29/24 0827 lactated Ringer's infusion 150 mL/hr Intravenous Continuous Michael Andrade MD 150 mL/hr at 10/29/24 0606 150 mL/hr at 10/29/24 0606 methocarbamol (Robaxin) tablet 750 mg 750 mg Oral 4x daily PRN Malik Trent APRN 750 mg at 10/28/24 0617 [START ON 10/30/2024] NIFEdipine XL (Procardia XL) 24 hr tablet 30 mg 30 mg Oral Daily Dana Solano MD oxyCODONE (Roxicodone) immediate release tablet 40 mg 40 mg Oral q4h PRN Saw Solano MD 40 mg at 10/29/24 1306 polyethylene glycol (Miralax) packet 17 g 17 g Oral Daily PRN Malik Trent APRN senna (Senokot) tablet 17.2 mg 17.2 mg Oral Daily Saw Solano MD sodium chloride 0.9 % flush 10 mL 10 mL Intravenous q12h Malik Trent APRN 10 mL at 10/29/24 1243 And sodium chloride 0.9 % flush 10 mL 10 mL Intravenous PRN Malik Trent APRN vancomycin (Vancocin) 2,500 mg in sodium chloride 0.9 % 500 mL IVPB 2,500 mg Intravenous (Continuous Infusion) q 24h (continuous) Saw Solano MD 23.8 mL/hr at 10/29/24 1046 2,500 mg at 10/29/24 1046 Facility-Administered Medications Ordered in Other Encounters Medication Dose Route Frequency Provider Last Rate Last Admin acetaminophen (Tylenol) tablet 650 mg 650 mg Oral Once PRN Parth Jaquez MD alteplase (Cathflo Activase) injection 2 mg 2 mg Intracatheter PRN Parth Jaquez MD calcium carbonate (Tums) chewable tablet 2,000 mg 2,000 mg Oral 4x daily PRN Parth Jaquez MD diphenhydrAMINE (Benadryl) injection 50 mg 50 mg Intravenous Once PRN Parth Jaquez MD diphenhydrAMINE (Benadryl) tablet 25 mg 25 mg Oral Once PRN Parth Jaquez MD diphenhydrAMINE (Benadryl) tablet 50 mg 50 mg Oral Once PRN Parth Jaquez MD EPINEPHrine (Adrenalin) 1 MG/ML injection 0.1 mg 0.1 mg Intravenous Once PRN Parth Jaquez MD EPINEPHrine (Adrenalin) 1 MG/ML injection 0.3 mg 0.3 mg Intramuscular Once PRN Parth Jaquez MD famotidine (Pepcid) tablet 20 mg 20 mg Oral Daily PRN Parth Jaquez MD famotidine PF (Pepcid) injection 20 mg 20 mg Intravenous Once PRN Parth Jaquez MD methylPREDNISolone sodium succinate (PF) (SOLU-Medrol) injection 125 mg 125 mg Intravenous Once Parth Jaquez MD ondansetron (Zofran) tablet 8 mg 8 mg Oral q8h PRN Parth Jaquez MD sodium chloride 0.9 % bolus 250 mL 250 mL Intravenous Once Parth Jaquez MD sodium citrate anticoagulant 4 % flush 3 mL 3 mL Intracatheter PRN Parth Jaquez MD Cosigned by Bravo Vyas MD at 10/29/2024 8:50 PM EDT Associated attestation - Bravo Vyas MD - 10/29/2024 8:50 PM EDT I saw and evaluated the patient with the resident Dr. Zarate. I discussed the case with the resident and agree with the findings and plan as documented. Electronically Signed by: Bravo Vyas MD - 10/29/2024 - 8:50 PM I have spent greater than 25 minutes performing the following components of the encounter (on the day of the encounter): reviewing history, examining the patient, reviewing imaging and/or labs, echo,ECG and/or other imaging results, counseling the patient and family/caregiver, communicating with other health rn transitional care and entering clinical information in the EHR. Greater than 50% of thetime spent on the encounter was [id number] providing direct patient care, counseling for the patient/caregiver, and care coordination. * Progress Notes - Saw Solano MD - 10/29/2024 6:42 AM EDT Subjective Moseh Maddox is a 29 y.o. 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 Patient premedicated prior to initiation of 1st unit for exchange with acetaminophen and famotidine. Patient reports within 4-6 minutes after starting the acute onset of chills, palpitations, diffuseitching, and severe sharp LBP radiating up into his neck .Transfusion was stopped and diphenhydramine along with home oxycodone and 250ml NS bolus given. Symptoms persisted with 9/10 back pain and temp up to 101F, thus brought to ER for evaluation. Febrile in ED to 102.4F, tachy 100's, other VSS. Labs pertinent for WBC 32.9, Hgb stable at 7, retic count 227.3, INR 1.4, LDH 1,369. CXR no acute findings. Transfusion reaction and BCX collected. Hem advised admit for pain control and further infectious work-up. 10/20/2024: No acute events overnight. 10/21/2024: No acute events overnight. 10/22/2024: No acute events overnight. As per ID, Ideally, we would recommend removing the port. Ptunderstands standard of care would be to remove the port but would not like to have the port removed at this point. If the port is going to remain, we would recommend delivering abx through it. If ptcontinues to be bacteremic, then the port should be removed. DC Rocephin ceftriaxone, continue Vancomycin. Echocardiogram. Panorex shows Evaluation of the central structures are significantly limitedby motion. Within limits of the motion degraded study, there is no apparent dental caries or definite evidence of periapical abscess. 10/23/2024: No adverse events noted overnight. Echocardiogram is still pending. Pt is adamant aboutnot having his port pulled. He is an extremely difficult stick. Patient states that he is will not consent to having the port removed even for a few days. He notes that he has NO veins and Vascular access has a tough time getting blood or an IV even with US guidance. Will attempt to get Blood Cultures tomorrow AM. At around 14 18 was notified by microbiology that the patient was growing Gram-positive cocci in clusters from the blood yesterday drawn at 5:18 a.m. infectious disease notified. Spoke with the patient who was very distraught feels he is not being treated adequately concerned about leaving against medical advice. Explained to the patient regarding the probability stroke myocardialinfarction and other events in the case patient chooses against medical advice. Patient understands. He is alert and oriented able to walk does have the capacity his own medical decision. At this time we will continue with vancomycin Interventional Radiology has also been consulted to have the port removed. Two sets of blood cultures 1 from the central line in 1 from the periphery has been ordered to be done stat. 10/24/2024: No adverse events noted overnight. Vitals reviewed labs reviewed this morning. White blood cell count of 9.97 hemoglobin of 8.1 grams/deciliter hematocrit of 23.5% with a platelet count of 382. Differential reviewed, WNL. Labs reviewed showing a downtrending procalcitonin as well as a downtrending ESR and CRP. Blood culture taken from left arm as well as from central line. Discussed with the patient and with Infectious Disease, the patient is adamant about not removing the port. Cancelled port removal. IR made aware. At this time we will monitor the patient cautiously, hematology reached out in regards to having a exchange transfusion we will hold off until the patient is stable. Continue with IV infusion. Patient continues to refuse PORT exchange. Patient is A&O x3 understands the risks and benefit he has capacity to make medical decisions at his own volition. 10/25/2024: No adverse events noted overnight. Vitals reviewed, blood pressure this morning is 151/97. Labs reviewed showing a white blood cell count 11.83 hemoglobin 7.3 grams/deciliter hematocrit 21.2% with a platelet count of 400 absolute neutrophil count of 6.61 with a monocyte 0.98 with absolute basophil count of 0.11. Sed rate is 18. Pt is lying in bed, he is feeling a little bit better today. 10/26/2024: No adverse events noted overnight. Vitals reviewed, blood pressure this morning is 152/103. Labs reviewed showing a white blood cell count 9.74 Hgb 7.6 g/dL, Hct 22.1% PLT 396. Differential notes Lymphocytes absolute 3.97, Monocytes absolute 0.90, Basophils 0.11, Immature Granulocyte 0.07. Electrolytes are notable for a PO4 of 4.6, Procalcitonin 0.72, CRP 15.0, ESR 19. Blood Culture from arm 10/24/2024 is positive for Gram + positive cocci. Continuing Vancomycin consider adding Teflaro ceftraoline for adjuvant therapy. Pt is lying in bed and immediately starts looking at his phonewhen this automatic typewriter inspector and case resolution specialist came into the room. 10/27/2024: No adverse events noted overnight. Vital signs, blood pressure is still elevated at 152/113 patient is still in a lot of pain. Labs are reviewed notable for a white blood cell count of 9.12 hemoglobin of 7.4 hematocrit of 21.8% with a platelet count of 388. Differential noted. Electrolytes within normal limits calcium of 8.4 phosphorus of 5.1 with a procalcitonin of 0.49 downtrending C-reactive protein of 12.5 and a sed rate 20. Patient continues to endorse severe pain feeling very crummy. New set of blood culture collected from the left a.c. this morning wound culture as well asblood culture from the port has been collected yesterday at 2:22 p.m.. Patient is stable still feeling very bad. Doesn't want to Decrease Dilaudid. 10/28/2024: No adverse events noted overnight. Vital signs, blood pressure this AM is 165/97. Pain is a little better. Will decreased Dilaudid to 1 mg IVP Q3h PRN and Oxycodone 40 mg PO Q4h PRN. 10/29/2024: No adverse events noted overnight. Vital signs, they are WNL. Labs are notable for WBC 10.45 Hgb 7.9 Hct 23.1% PLT 383. Differential reviewed. BMP reviewed Mag 1.8 PO4 4.7. Procalcitonin 0.28, CRP 8.1 ESR 26. Patient is still in pain, Had high BP given Nifedipine 30 mg XL PO at 0030. Magnesium repleted. Review of Systems All other systems reviewed and are negative. Objective Vitals Temp: [36.2 ??C (97.1 ??F)-36.8 ??C (98.3 ??F)] 36.5 ??C (97.7 ??F) Heart Rate: [78-86] 81 Resp: [13-18] 16 BP: (125-171)/(75-111) 125/75 Physical Exam Constitutional: General: He is not in acute distress. Appearance: Normal appearance. He is normal weight. He is not ill-appearing or diaphoretic. Eyes: General: No scleral icterus. Cardiovascular: Rate and Rhythm: Normal rate. Pulmonary: Effort: Pulmonary effort is normal. No respiratory distress. Chest: Comments: Chest Wall has a port on the patient Right side of the chest. Abdominal: General: Abdomen is flat. There is no distension. Palpations: Abdomen is soft. Musculoskeletal: General: No swelling. Normal range of motion. Cervical back: Normal range of motion. Right lower leg: No edema. Left lower leg: No edema. Skin: General: Skin is warm. Capillary Refill: Capillary refill takes less than 2 seconds. Neurological: General: No focal deficit present. Mental Status: He is alert and oriented to person, place, and time. Mental status is at baseline. Assessment & Plan Blood transfusion reaction, initial encounter Moshe Maddox is a 29 y/o Male with a known medical history of Sickle Cell Disease and Hepatitis C presents after fever first noticed after blood transfusion. Bacteremia: Blood cultures (8/15) from Hand growing Streptococcus mitis/oralis group. Blood Cultures (8/15) from port growing Staphylococcus coagulase negative, MecA Positive. Panorex (8/18) showed: Evaluation of the central structures are significantly limited by motion. Within limits of the motion degraded study, there is no apparent dental caries or definite evidence of periapical abscess. Repeat blood cultures (8/18) are NGTD. Echocardiogram shows All cardiac valves were reasonably well interrogated with 2D imaging and/or Doppler assessment and no significant valve regurgitation or stenosis is seen. There is no definite echocardiographic evidence of endocarditis. Compared to the most recently available prior study, and allowing for differences in image quality and technique, there is no significant interval change noted. With left ventricular systolic function of 55-60%. Contacted Interventional Radiology, holding procedure to remove Port. At this time patient does not want his port removed. He has stated that is his only form of access that is he needs for the exchange transfusion. Thus he continues to refuse any IV line or IV placement. Infectious Disease made aware state itis patient's decision they can only inform him of their recommendation. Antibiotics (started 10/20/24)--Vanc (for Staph) thru the port Pharmacy to help DOSE, thank you Consider 14 days of ABX from the last negative Blood Culture Volume Resuscitation - LR 150mL/hr Repeat Blood Culture. Sickle cell acute pain crisis & Sickle cell anemia: continue hydroxyurea 500mg BID, folic acid 1mg daily Pain control Hydromorphone 1 mg IV q3h PRN diphenhydramine 50 mg IV q4h PRN home oxycodone 40 mg q4h PRN diclofenac gel 4 g QID PRN acetaminophen 650 mg q8h PRN, methocarbamol 750mg QID PRN, lidoderm patch daily Bowel Regimen: senna 17.2 mg daily Hold off on any exchange transfusion until patient is stable. 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 HBV Surface Ag negative, Hep B core Total AB positive Hepatology follow-up at discharge Tobacco Use Disorder (Vapes) - he declined NRT FENGI: Regular DVT prophylaxis: Eliquis apixaban 5 mg PO BID GI prophylaxis: NONE Code status: Full Code Disposition: Home when stable. Saw Solano MD Internal Medicine Hospitalist [employer] Department of Internal Medicine Division of Hospital Medicine [place] [phone] Preferred method is secure chat or cell phone at [phone] Medically Ready for Discharge:Anticipated in 2-4 Days * Care Plan - Yojana Knight - 10/28/2024 10:27 PM EDT Problem: Infection Goal: Absence of Infection Signs and Symptoms Outcome: Ongoing, Progressing Intervention: Prevent or Manage Infection Flowsheets Taken 10/28/2024 2000 by Yojana Knight Isolation Precautions: precautions maintained contact Taken 10/25/20242220 by Kelli Cunningham, NASEEM Infection Management: aseptic technique maintained Fever Reduction/Comfort Measures: lightweight bedding lightweight clothing Problem: Adult Inpatient Plan of Care Goal: Plan of Care Review Outcome: Ongoing, Progressing Flowsheets (Taken 10/25/20242220 by Kelli Cunningham, RN) Progress: improving Outcome Evaluation: Pt's will receive around the clock pain medication, per pt request and assessment Plan of Care Reviewed With: patient Goal: Patient-Specific Goal (Individualized) Outcome: Ongoing, Progressing Flowsheets (Taken 10/28/20241999) Patient/Family-Specific Goals (Include Timeframe): pt will remain free from harm this shift Individualized Care Needs: safety Anxieties, Fears or Concerns: none stated Goal: Absence of Hospital-Acquired Illness or Injury Outcome: Ongoing, Progressing Goal: Optimal Comfort and Wellbeing Outcome: Ongoing, Progressing Problem: Sickle Cell Disease Goal: Optimal Cerebral Tissue Perfusion Outcome: Ongoing, Progressing Intervention: Protect and Optimize Cerebral Perfusion Flowsheets Taken 10/28/2024 2216 by Yojana Knight Sensory Stimulation Regulation: lighting decreased Taken 10/28/20241999 by Yojana Knight Head of Bed (HOB) Positioning: HOB elevated Taken 10/27/2024 1325 by Samaria Pettit, RN Cerebral Perfusion Promotion: blood pressure monitored Taken 10/25/20242220 by Kelli Cunningham RN Fever Reduction/Comfort Measures: lightweight bedding lightweight clothing Goal: Optimal Coping with Sickle Cell Disease Outcome: Ongoing, Progressing Intervention: Support Psychosocial Adjustment Flowsheets Taken 10/27/2024 1325 by Samaria Pettit, fiberglasser/Support System Care: involvement promoted presence promoted self-care encouraged support provided Taken 10/25/2024 1354 by Channing Wallis RN Supportive Measures: active listening utilized decision-making supported goal-setting facilitated mindfulness techniques promoted positive reinforcement provided Goal: Effective Tissue Perfusion Outcome: Ongoing, Progressing Intervention: Maintain Adequate Tissue Perfusion Flowsheets (Taken 10/27/2024 0150 by Jen Nolen, NASEEM) Fluid/Electrolyte Management: fluids provided Goal: Absence of Infection Signs and Symptoms Outcome: Ongoing, Progressing Intervention: Prevent or Manage Infection Flowsheets Taken 10/28/20241999 by Yojana Knight Isolation Precautions: precautions maintained contact Taken 10/27/2024 1325 by Samaria Pettit, RN Infection Prevention: environmental surveillance performed hand hygiene promoted single patient room provided rest/sleep promoted Taken 10/25/20242220 by Kelli Cunningham RN Infection Management: aseptic technique maintained Fever Reduction/Comfort Measures: lightweight bedding lightweight clothing Goal: Optimal Pain Control and Function Outcome: Ongoing, Progressing Intervention: Manage Acute Pain Flowsheets Taken 10/28/20242132 by Yojana Knight Pain Management Interventions: medication (see MAR) Taken 10/25/2024 1354 by Channing Wallis, RN Diversional Activities: smartphone television Intervention: Acknowledge Underlying Chronic Pain Flowsheets (Taken 10/27/2024 0150 by Jen Nolen RN) Medication Review/Management: medications reviewed high-risk medications identified Goal: Optimal Oxygenation Outcome: Ongoing, Progressing Intervention: Optimize Oxygenation Flowsheets (Taken 10/28/20241999) Cough And Deep Breathing: done independently per patient Problem: Sickle Cell Disease Goal: Optimal Coping with Sickle Cell Disease Outcome: Ongoing, Progressing Intervention: Support Psychosocial Adjustment Flowsheets Taken 10/27/2024 1325 by Samaria Pettit RN Family/Support System Care: involvement promoted presence promoted self-care encouraged support provided Taken 10/25/2024 1354 by Channing Wallis RN Supportive Measures: active listening utilized decision-making supported goal-setting facilitated mindfulness techniques promoted positive reinforcement provided * Care Plan - Yojana Knight - 10/28/2024 10:18 PM EDT Problem: Adult Inpatient Plan of Care Goal: Plan of Care Review Outcome: Ongoing, Progressing Flowsheets (Taken 10/25/20242220 by Kelli Cunningham, NASEEM) Progress: improving Outcome Evaluation: Pt's will receive around the clock pain medication, per pt request and assessment Plan of Care Reviewed With: patient Goal: Patient-Specific Goal (Individualized) Outcome: Ongoing, Progressing Flowsheets (Taken 10/28/20241999) Patient/Family-Specific Goals (Include Timeframe): pt will remain free from harm this shift Individualized Care Needs: safety Anxieties, Fears or Concerns: none stated Goal: Absence of Hospital-Acquired Illness or Injury Outcome: Ongoing, Progressing Goal: Optimal Comfort and Wellbeing Outcome: Ongoing, Progressing * Care Plan - Tash Fox RN - 10/28/2024 2:02 PM EDT Problem: Adult Inpatient Plan of Care Goal: Plan of Care Review Outcome: Ongoing, Progressing Flowsheets (Taken 10/25/2024 222 by Kelli Cunningham RN) Progress: improving Outcome Evaluation: Pt's will receive around the clock pain medication, per pt request and assessment Plan of Care Reviewed With: patient Goal: Patient-Specific Goal (Individualized) Outcome: Ongoing, Progressing Flowsheets (Taken 10/28/2024 1200) Patient/Family-Specific Goals (Include Timeframe): Pt will remain free from falls throughout entireshift Individualized Care Needs: Safety Anxieties, Fears or Concerns: none stated Goal: Absence of Hospital-Acquired Illness or Injury Outcome: Ongoing, Progressing Goal: Optimal Comfort and Wellbeing Outcome: Ongoing, Progressing Problem: Infection Goal: Absence of Infection Signs and Symptoms Outcome: Ongoing, Progressing Intervention: Prevent or Manage Infection Flowsheets Taken 10/28/2024 1200 by Tash Fox RN Isolation Precautions: precautions maintained Taken 10/25/2024 222 by Kelli Cunningham RN Infection Management: aseptic technique maintained Fever Reduction/Comfort Measures: lightweight bedding lightweight clothing Problem: Pain Acute Goal: Optimal Pain Control and Function Outcome: Ongoing, Progressing Intervention: Optimize Psychosocial Wellbeing Flowsheets (Taken 10/25/2024 1354 by Channing Wallis, RN) Supportive Measures: active listening utilized decision-making supported goal-setting facilitated mindfulness techniques promoted positive reinforcement provided Diversional Activities: smartphone television Spiritual Activities Assistance: hope instilled Intervention: Develop Pain Management Plan Flowsheets (Taken 10/28/2024 1354 by Samaria Pettit, NASEEM) Pain Management Interventions: medication (see MAR) Problem: Sickle Cell Disease Goal: Optimal Cerebral Tissue Perfusion Outcome: Ongoing, Progressing Intervention: Protect and Optimize Cerebral Perfusion Flowsheets Taken 10/28/2024 1200 by Tash Fox RN Head of Bed (HOB) Positioning: HOB elevated Taken 10/27/2024 1325 by Samaria Pettit RN Cerebral Perfusion Promotion: blood pressure monitored Taken 10/25/20242220 by Kelli Cunningham RN Fever Reduction/Comfort Measures: lightweight bedding lightweight clothing Goal: Optimal Coping with Sickle Cell Disease Outcome: Ongoing, Progressing Intervention: Support Psychosocial Adjustment Flowsheets Taken 10/27/2024 1325 by Samaria Pettit RN Family/Support System Care: involvement promoted presence promoted self-care encouraged support provided Taken 10/25/2024 1354 by Channing Wallis RN Supportive Measures: active listening utilized decision-making supported goal-setting facilitated mindfulness techniques promoted positive reinforcement provided Goal: Effective Tissue Perfusion Outcome: Ongoing, Progressing Intervention: Maintain Adequate Tissue Perfusion Flowsheets (Taken 10/27/2024 0150 by Jen Nolen RN) Fluid/Electrolyte Management: fluids provided Goal: Absence of Infection Signs and Symptoms Outcome: Ongoing, Progressing Intervention: Prevent or Manage Infection Flowsheets Taken 10/28/2024 1200 by Tash Fox RN Isolation Precautions: precautions maintained Taken 10/27/2024 1325 by Samaria Pettit RN Infection Prevention: environmental surveillance performed hand hygiene promoted single patient room provided rest/sleep promoted Taken 10/25/20242220 by Kelli Cunningham RN Infection Management: aseptic technique maintained Fever Reduction/Comfort Measures: lightweight bedding lightweight clothing Goal: Optimal Pain Control and Function Outcome: Ongoing, Progressing Intervention: Manage Acute Pain Flowsheets Taken 10/28/2024 1354 by Samaria Pettit RN Pain Management Interventions: medication (see MAR) Taken 10/25/2024 1354 by Channing Wallis RN Diversional Activities: smartphone television Goal: Optimal Oxygenation Outcome: Ongoing, Progressing Intervention: Optimize Oxygenation Flowsheets (Taken 10/28/2024 0300 by Jen Nolen, RN) Cough And Deep Breathing: done independently per patient Problem: Fall Injury Risk Goal: Absence of Fall and Fall-Related Injury Outcome: Ongoing, Progressing Intervention: Identify and Manage Contributors Flowsheets (Taken 10/27/2024 0150 by Jen Nolen, RN) Medication Review/Management: medications reviewed high-risk medications identified Intervention: Promote Injury-Free Environment Flowsheets (Taken 10/28/2024 1200) Safety Promotion/Fall Prevention: activity supervised * Progress Notes - Saw Solano MD - 10/28/2024 6:44 AM EDT Abdoul Maddox is a 29 y.o. 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 Patient premedicated prior to initiation of 1st unit for exchange with acetaminophen and famotidine. Patient reports within 4-6 minutes after starting the acute onset of chills, palpitations, diffuseitching, and severe sharp LBP radiating up into his neck .Transfusion was stopped and diphenhydramine along with home oxycodone and 250ml NS bolus given. Symptoms persisted with 9/10 back pain and temp up to 101F, thus brought to ER for evaluation. Febrile in ED to 102.4F, tachy 100's, other VSS. Labs pertinent for WBC 32.9, Hgb stable at 7, retic count 227.3, INR 1.4, LDH 1,369. CXR no acute findings. Transfusion reaction and BCX collected. Hem advised admit for pain control and further infectious work-up. 10/20/2024: No acute events overnight. 10/21/2024: No acute events overnight. 10/22/2024: No acute events overnight. As per ID, Ideally, we would recommend removing the port. Ptunderstands standard of care would be to remove the port but would not like to have the port removed at this point. If the port is going to remain, we would recommend delivering abx through it. If ptcontinues to be bacteremic, then the port should be removed. DC Rocephin ceftriaxone, continue Vancomycin. Echocardiogram. Panorex shows Evaluation of the central structures are significantly limitedby motion. Within limits of the motion degraded study, there is no apparent dental caries or definite evidence of periapical abscess. 10/23/2024: No adverse events noted overnight. Echocardiogram is still pending. Pt is adamant aboutnot having his port pulled. He is an extremely difficult stick. Patient states that he is will not consent to having the port removed even for a few days. He notes that he has NO veins and Vascular access has a tough time getting blood or an IV even with US guidance. Will attempt to get Blood Cultures tomorrow AM. At around 14 18 was notified by microbiology that the patient was growing Gram-positive cocci in clusters from the blood yesterday drawn at 5:18 a.m. infectious disease notified. Spoke with the patient who was very distraught feels he is not being treated adequately concerned about leaving against medical advice. Explained to the patient regarding the probability stroke myocardialinfarction and other events in the case patient chooses against medical advice. Patient understands. He is alert and oriented able to walk does have the capacity his own medical decision. At this time we will continue with vancomycin Interventional Radiology has also been consulted to have the port removed. Two sets of blood cultures 1 from the central line in 1 from the periphery has been ordered to be done stat. 10/24/2024: No adverse events noted overnight. Vitals reviewed labs reviewed this morning. White blood cell count of 9.97 hemoglobin of 8.1 grams/deciliter hematocrit of 23.5% with a platelet count of 382. Differential reviewed, WNL. Labs reviewed showing a downtrending procalcitonin as well as a downtrending ESR and CRP. Blood culture taken from left arm as well as from central line. Discussed with the patient and with Infectious Disease, the patient is adamant about not removing the port. Cancelled port removal. IR made aware. At this time we will monitor the patient cautiously, hematology reached out in regards to having a exchange transfusion we will hold off until the patient is stable. Continue with IV infusion. Patient continues to refuse PORT exchange. Patient is A&O x3 understands the risks and benefit he has capacity to make medical decisions at his own volition. 10/25/2024: No adverse events noted overnight. Vitals reviewed, blood pressure this morning is 151/97. Labs reviewed showing a white blood cell count 11.83 hemoglobin 7.3 grams/deciliter hematocrit 21.2% with a platelet count of 400 absolute neutrophil count of 6.61 with a monocyte 0.98 with absolute basophil count of 0.11. Sed rate is 18. Pt is lying in bed, he is feeling a little bit better today. 10/26/2024: No adverse events noted overnight. Vitals reviewed, blood pressure this morning is 152/103. Labs reviewed showing a white blood cell count 9.74 Hgb 7.6 g/dL, Hct 22.1% PLT 396. Differential notes Lymphocytes absolute 3.97, Monocytes absolute 0.90, Basophils 0.11, Immature Granulocyte 0.07. Electrolytes are notable for a PO4 of 4.6, Procalcitonin 0.72, CRP 15.0, ESR 19. Blood Culture from arm 10/24/2024 is positive for Gram + positive cocci. Continuing Vancomycin consider adding Teflaro ceftraoline for adjuvant therapy. Pt is lying in bed and immediately starts looking at his phonewhen this automatic typewriter inspector and case resolution specialist came into the room. 10/27/2024: No adverse events noted overnight. Vital signs, blood pressure is still elevated at 152/113 patient is still in a lot of pain. Labs are reviewed notable for a white blood cell count of 9.12 hemoglobin of 7.4 hematocrit of 21.8% with a platelet count of 388. Differential noted. Electrolytes within normal limits calcium of 8.4 phosphorus of 5.1 with a procalcitonin of 0.49 downtrending C-reactive protein of 12.5 and a sed rate 20. Patient continues to endorse severe pain feeling very crummy. New set of blood culture collected from the left a.c. this morning wound culture as well as blood culture from the port has been collected yesterday at 2:22 p.m.. Patient is stable still feeling very bad. Doesn't want to Decrease Dilaudid. 10/28/2024: No adverse events noted overnight. Vital signs, blood pressure this AM is 165/97. Pain is a little better. Will decreased Dilaudid to 1 mg IVP Q3h PRN and Oxycodone 40 mg PO Q4h PRN. Review of Systems All other systems reviewed and are negative. Objective Vitals Temp: [36.7 ??C (98.1 ??F)-37.1 ??C (98.8 ??F)] 36.9 ??C (98.4 ??F) Heart Rate: [79-100] 87 Resp: [16-24] 16 BP: (142-165)/(86-116) 165/97 Physical Exam Constitutional: General: He is not in acute distress. Appearance: Normal appearance. He is normal weight. He is not ill-appearing or diaphoretic. Eyes: General: No scleral icterus. Cardiovascular: Rate and Rhythm: Normal rate. Pulmonary: Effort: Pulmonary effort is normal. No respiratory distress. Chest: Comments: Chest Wall has a port on the patient Right side of the chest. Abdominal: General: Abdomen is flat. There is no distension. Palpations: Abdomen is soft. Musculoskeletal: General: No swelling. Normal range of motion. Cervical back: Normal range of motion. Right lower leg: No edema. Left lower leg: No edema. Skin: General: Skin is warm. Capillary Refill: Capillary refill takes less than 2 seconds. Neurological: General: No focal deficit present. Mental Status: He is alert and oriented to person, place, and time. Mental status is at baseline. Assessment & Plan Blood transfusion reaction, initial encounter Moshe Maddox is a 29 y/o Male with a known medical history of Sickle Cell Disease and Hepatitis C presents after fever first noticed after blood transfusion. Bacteremia: Blood cultures (8/15) from Hand growing Streptococcus mitis/oralis group. Blood Cultures (8/15) from port growing Staphylococcus coagulase negative, MecA Positive. Panorex (8/18) showed: Evaluation of the central structures are significantly limited by motion. Within limits of the motion degraded study, there is no apparent dental caries or definite evidence of periapical abscess. Repeat blood cultures (8/18) are NGTD. Echocardiogram shows All cardiac valves were reasonably well interrogated with 2D imaging and/or Doppler assessment and no significant valve regurgitation or stenosis is seen. There is no definite echocardiographic evidence of endocarditis. Compared to the most recently available prior study, and allowing for differences in image quality and technique, there is no significant interval change noted. With left ventricular systolic function of 55-60%. Contacted Interventional Radiology, holding procedure to remove Port. At this time patient does not want his port removed. He has stated that is his only form of access that is he needs for the exchange transfusion. Thus he continues to refuse any IV line or IV placement. Infectious Disease made aware state itis patient's decision they can only inform him of their recommendation. Antibiotics (started 10/20/24)--Vanc (for Staph) thru [facility] to help DOSE, thank you Consider 14 days of ABX from the last negative Blood Culture Volume Resuscitation - LR 150mL/hr Repeat Blood Culture. Sickle cell acute pain crisis & Sickle cell anemia: continue hydroxyurea 500mg BID, folic acid 1mg daily Pain control Hydromorphone 1 mg IV q3h PRN diphenhydramine 50 mg IV q4h PRN home oxycodone 40 mg q4h PRN diclofenac gel 4 g QID PRN acetaminophen 650 mg q8h PRN, methocarbamol 750mg QID PRN, lidoderm patch daily Bowel Regimen: senna 17.2 mg daily Hold off on any exchange transfusion until patient is stable. 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 HBV Surface Ag negative, Hep B core Total AB positive Hepatology follow-up at discharge Tobacco Use Disorder (Vapes) - he declined NRT FENGI: Regular DVT prophylaxis: Eliquis apixaban 5 mg PO BID GI prophylaxis: NONE Code status: Full Code Disposition: Home when stable. Saw Solano MD Internal Medicine Hospitalist [employer] Department of Internal Medicine Division [place] [address] Preferred method is secure chat or cell phone at [phone] Medically Ready for Discharge:Anticipated in 2-4 Days * Care Plan - Jen Nolen RN - 10/28/2024 12:59 AM EDT Problem: Adult Inpatient Plan of Care Goal: Plan of Care Review Outcome: Ongoing, Progressing Flowsheets (Taken 10/25/2024 2221 by Kelli Cunningham, NASEEM) Progress: improving Outcome Evaluation: Pt's will receive around the clock pain medication, per pt request and assessment Plan of Care Reviewed With: patient Goal: Patient-Specific Goal (Individualized) Outcome: Ongoing, Progressing Flowsheets (Taken 10/27/2024 1900) Patient/Family-Specific Goals (Include Timeframe): pt will have adequate pain control with medication while on my shift Individualized Care Needs: pain management Anxieties, Fears or Concerns: pain Goal: Absence of Hospital-Acquired Illness or Injury Outcome: Ongoing, Progressing Intervention: Continuous IV ABX and monitoring, encouraging ambulation as tolerated Goal: Optimal Comfort and Wellbeing Outcome: Ongoing, Progressing Intervention: Pain management and continuous fluids, giving emotional support Problem: Infection Goal: Absence of Infection Signs and Symptoms Outcome: Ongoing, Progressing Intervention: Prevent or Manage Infection Flowsheets Taken 10/27/2024 2300 by Jen Nolen RN Isolation Precautions: contact Taken 10/25/20242220 by Kelli Cunningham RN Infection Management: aseptic technique maintained Fever Reduction/Comfort Measures: lightweight bedding lightweight clothing Problem: Pain Acute Goal: Optimal Pain Control and Function Outcome: Ongoing, Progressing Intervention: Optimize Psychosocial Wellbeing Flowsheets (Taken 10/25/2024 1354 by Channing Wallis RN) Supportive Measures: active listening utilized decision-making supported goal-setting facilitated mindfulness techniques promoted positive reinforcement provided Diversional Activities: smartphone television Spiritual Activities Assistance: hope instilled Intervention: Develop Pain Management Plan Flowsheets (Taken 10/27/20242225) Pain Management Interventions: medication (see MAR) Problem: Sickle Cell Disease Goal: Optimal Cerebral Tissue Perfusion Outcome: Ongoing, Progressing Intervention: Protect and Optimize Cerebral Perfusion Flowsheets Taken 10/27/2024 1900 by Jen Nolen RN Head of Bed (HOB) Positioning: HOB elevated Taken 10/27/2024 1325 by Samaria Pettit RN Cerebral Perfusion Promotion: blood pressure monitored Taken 10/25/20242220 by Kelli Cunningham RN Fever Reduction/Comfort Measures: lightweight bedding lightweight clothing Goal: Optimal Coping with Sickle Cell Disease Outcome: Ongoing, Progressing Intervention: Support Psychosocial Adjustment Flowsheets Taken 10/27/2024 1325 by Samaria Pettit fiberglasser/Support System Care: involvement promoted presence promoted self-care encouraged support provided Taken 10/25/2024 1354 by Channing Wallis RN Supportive Measures: active listening utilized decision-making supported goal-setting facilitated mindfulness techniques promoted positive reinforcement provided Goal: Effective Tissue Perfusion Outcome: Ongoing, Progressing Intervention: Maintain Adequate Tissue Perfusion Flowsheets (Taken 10/27/2024 0150) Fluid/Electrolyte Management: fluids provided Goal: Absence of Infection Signs and Symptoms Outcome: Ongoing, Progressing Intervention: Prevent or Manage Infection Flowsheets Taken 10/27/2024 2300 by Jen Nolen RN Isolation Precautions: contact Taken 10/27/2024 1325 by Samaria Pettit, RN Infection Prevention: environmental surveillance performed hand hygiene promoted single patient room provided rest/sleep promoted Taken 10/25/2024 222 by Kelli Cunningham RN Infection Management: aseptic technique maintained Fever Reduction/Comfort Measures: lightweight bedding lightweight clothing Goal: Optimal Pain Control and Function Outcome: Ongoing, Progressing Intervention: Manage Acute Pain Flowsheets Taken 10/27/2024 2226 by Jen Nolen RN Pain Management Interventions: medication (see MAR) Taken 10/25/2024 1354 by Channing Wallis RN Diversional Activities: smartphone television Intervention: Acknowledge Underlying Chronic Pain Flowsheets (Taken 10/27/2024 0150) Medication Review/Management: medications reviewed high-risk medications identified Goal: Optimal Oxygenation Outcome: Ongoing, Progressing Intervention: Optimize Oxygenation Flowsheets (Taken 10/27/2024 2300) Cough And Deep Breathing: done independently per patient Problem: Fall Injury Risk Goal: Absence of Fall and Fall-Related Injury Outcome: Ongoing, Progressing Intervention: Identify and Manage Contributors Flowsheets (Taken 10/27/2024 0150) Medication Review/Management: medications reviewed high-risk medications identified Intervention: Promote Injury-Free Environment Flowsheets (Taken 10/27/2024 1632 by Samaria Pettit, RN) Safety Promotion/Fall Prevention: nonskid shoes/slippers when out of bed room organization consistent safety round/check completed toileting scheduled * Care Plan - Samaria Pettit RN - 10/27/2024 1:47 PM EDT Problem: Adult Inpatient Plan of Care Goal: Plan of Care Review Outcome: Ongoing, Progressing Goal: Patient-Specific Goal (Individualized) Outcome: Ongoing, Progressing Flowsheets (Taken 10/27/2024 0802) Patient/Family-Specific Goals (Include Timeframe): pt will verbalize adequate pain control during shift Individualized Care Needs: pain management Anxieties, Fears or Concerns: pain Goal: Absence of Hospital-Acquired Illness or Injury Outcome: Ongoing, Progressing Goal: Optimal Comfort and Wellbeing Outcome: Ongoing, Progressing Problem: Infection Goal: Absence of Infection Signs and Symptoms Outcome: Ongoing, Progressing Intervention: Prevent or Manage Infection Flowsheets Taken 10/27/2024 1202 by Samaria Pettit RN Isolation Precautions: contact Taken 10/25/2024 2221 by Kelli Cunningham RN Infection Management: aseptic technique maintained Fever Reduction/Comfort Measures: lightweight bedding lightweight clothing Problem: Pain Acute Goal: Optimal Pain Control and Function Outcome: Ongoing, Progressing Intervention: Optimize Psychosocial Wellbeing Flowsheets (Taken 10/25/2024 1354 by Channing Wallis RN) Supportive Measures: active listening utilized decision-making supported goal-setting facilitated mindfulness techniques promoted positive reinforcement provided Diversional Activities: smartphone television Intervention: Develop Pain Management Plan Flowsheets (Taken 10/27/2024 1224) Pain Management Interventions: medication (see MAR) Problem: Sickle Cell Disease Goal: Optimal Cerebral Tissue Perfusion Outcome: Ongoing, Progressing Intervention: Protect and Optimize Cerebral Perfusion Flowsheets Taken 10/27/2024 1325 by Samaria Pettit RN Cerebral Perfusion Promotion: blood pressure monitored Taken 10/27/2024 0802 by Samaria Pettit RN Head of Bed (HOB) Positioning: HOB at 30-45 degrees Taken 10/25/2024 222 by Kelli Cunningham RN Fever Reduction/Comfort Measures: lightweight bedding lightweight clothing Goal: Optimal Coping with Sickle Cell Disease Outcome: Ongoing, Progressing Intervention: Support Psychosocial Adjustment Flowsheets Taken 10/27/2024 1325 by Samaria Pettit RN Family/Support System Care: involvement promoted presence promoted self-care encouraged support provided Taken 10/25/2024 1354 by Channing Wallis RN Supportive Measures: active listening utilized decision-making supported goal-setting facilitated mindfulness techniques promoted positive reinforcement provided Goal: Effective Tissue Perfusion Outcome: Ongoing, Progressing Intervention: Maintain Adequate Tissue Perfusion Flowsheets (Taken 10/27/2024 0150 by Jen Nolen RN) Fluid/Electrolyte Management: fluids provided Goal: Absence of Infection Signs and Symptoms Outcome: Ongoing, Progressing Intervention: Prevent or Manage Infection Flowsheets Taken 10/27/2024 1325 by Samaria Pettit RN Infection Prevention: environmental surveillance performed hand hygiene promoted single patient room provided rest/sleep promoted Taken 10/27/2024 1202 by Samaria Pettit, RN Isolation Precautions: contact Taken 10/25/2024 2221 by Kelli Cunningham RN Infection Management: aseptic technique maintained Fever Reduction/Comfort Measures: lightweight bedding lightweight clothing Goal: Optimal Pain Control and Function Outcome: Ongoing, Progressing Intervention: Manage Acute Pain Flowsheets Taken 10/27/2024 1224 by Samaria Pettit applications trainer Interventions: medication (see MAR) Taken 10/25/2024 1354 by Channing Wallis RN Diversional Activities: smartphone television Intervention: Acknowledge Underlying Chronic Pain Flowsheets (Taken 10/27/2024 0150 by Jen Nolen, NASEEM) Medication Review/Management: medications reviewed high-risk medications identified Goal: Optimal Oxygenation Outcome: Ongoing, Progressing Intervention: Optimize Oxygenation Flowsheets (Taken 10/27/2024 0802) Cough And Deep Breathing: done independently per patient Problem: Fall Injury Risk Goal: Absence of Fall and Fall-Related Injury Outcome: Ongoing, Progressing Intervention: Identify and Manage Contributors Flowsheets (Taken 10/27/2024 0150 by Jen Nolen RN) Medication Review/Management: medications reviewed high-risk medications identified Intervention: Promote Injury-Free Environment Flowsheets (Taken 10/27/2024 1202) Safety Promotion/Fall Prevention: nonskid shoes/slippers when out of bed room organization consistent safety round/check completed toileting scheduled * Progress Notes - Barbara Samayoa, PamelaD - 10/27/2024 7:41 AM EDT Pharmacokinetic Consult - Therapeutic Drug Monitoring HPI and Hospital Course: Moshe Maddox is a 29 y.o. male presenting with port associated bacteremia. Pharmacy consulted to assist with management of vancomycin therapy for Bacteremia. Random concentration therapeutic drug monitoring performed due to patient receiving continuous infusion. Creatinine, Plasma (mg/dL) Date/Time Value 10/27/2024 0519 0.67 (L) Estimated Creatinine Clearance: 125 mL/min (A) (by C-G formula based on SCr of 0.67 mg/dL (L)). Vancomycin, Random, Plasma (ug/mL) Date/Time Value 10/27/2024 0519 30.0 AUC = 720 Assessment/Plan 1. Patient is Supratherapeutic for AUC of 400 - 600. Recommend to change to continuous infusion of vancomycin 3500 mg IV every 24 hours. For predicted AUC 560 2. Monitor renal function (SCr and BUN) and UOP at least 2-3x weekly or more frequently if renal function changes. 3. Recommend random vancomycin level with AM labs on Tuesday. Pharmacy will continue to follow, Barbara Samayoa PharmD 10/27/2024 7:36 AM * Progress Notes - Saw Solano MD - 10/27/2024 7:01 AM EDT Subjective Moshe Maddox is a 29 y.o. 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 Patient premedicated prior to initiation of 1st unit for exchange with acetaminophen and famotidine. Patient reports within 4-6 minutes after starting the acute onset of chills, palpitations, diffuseitching, and severe sharp LBP radiating up into his neck .Transfusion was stopped and diphenhydramine along with home oxycodone and 250ml NS bolus given. Symptoms persisted with 9/10 back pain and temp up to 101F, thus brought to ER for evaluation. Febrile in ED to 102.4F, tachy 100's, other VSS. Labs pertinent for WBC 32.9, Hgb stable at 7, retic count 227.3, INR 1.4, LDH 1,369. CXR no acute findings. Transfusion reaction and BCX collected. Hem advised admit for pain control and further infectious work-up. 10/20/2024: No acute events overnight. 10/21/2024: No acute events overnight. 10/22/2024: No acute events overnight. As per ID, Ideally, we would recommend removing the port. Ptunderstands standard of care would be to remove the port but would not like to have the port removed at this point. If the port is going to remain, we would recommend delivering abx through it. If ptcontinues to be bacteremic, then the port should be removed. DC Rocephin ceftriaxone, continue Vancomycin. Echocardiogram. Panorex shows Evaluation of the central structures are significantly limitedby motion. Within limits of the motion degraded study, there is no apparent dental caries or definite evidence of periapical abscess. 10/23/2024: No adverse events noted overnight. Echocardiogram is still pending. Pt is adamant aboutnot having his port pulled. He is an extremely difficult stick. Patient states that he is will not consent to having the port removed even for a few days. He notes that he has NO veins and Vascular access has a tough time getting blood or an IV even with US guidance. Will attempt to get Blood Cultures tomorrow AM. At around 14 18 was notified by microbiology that the patient was growing Gram-positive cocci in clusters from the blood yesterday drawn at 5:18 a.m. infectious disease notified. Spoke with the patient who was very distraught feels he is not being treated adequately concerned about leaving against medical advice. Explained to the patient regarding the probability stroke myocardialinfarction and other events in the case patient chooses against medical advice. Patient understands. He is alert and oriented able to walk does have the capacity his own medical decision. At this time we will continue with vancomycin Interventional Radiology has also been consulted to have the port removed. Two sets of blood cultures 1 from the central line in 1 from the periphery has been ordered to be done stat. 10/24/2024: No adverse events noted overnight. Vitals reviewed labs reviewed this morning. White blood cell count of 9.97 hemoglobin of 8.1 grams/deciliter hematocrit of 23.5% with a platelet count of 382. Differential reviewed, WNL. Labs reviewed showing a downtrending procalcitonin as well as a downtrending ESR and CRP. Blood culture taken from left arm as well as from central line. Discussed with the patient and with Infectious Disease, the patient is adamant about not removing the port. Cancelled port removal. IR made aware. At this time we will monitor the patient cautiously, hematology reached out in regards to having a exchange transfusion we will hold off until the patient is stable. Continue with IV infusion. Patient continues to refuse PORT exchange. Patient is A&O x3 understands the risks and benefit he has capacity to make medical decisions at his own volition. 10/25/2024: No adverse events noted overnight. Vitals reviewed, blood pressure this morning is 151/97. Labs reviewed showing a white blood cell count 11.83 hemoglobin 7.3 grams/deciliter hematocrit 21.2% with a platelet count of 400 absolute neutrophil count of 6.61 with a monocyte 0.98 with absolute basophil count of 0.11. Sed rate is 18. Pt is lying in bed, he is feeling a little bit better today. 10/26/2024: No adverse events noted overnight. Vitals reviewed, blood pressure this morning is 152/103. Labs reviewed showing a white blood cell count 9.74 Hgb 7.6 g/dL, Hct 22.1% PLT 396. Differential notes Lymphocytes absolute 3.97, Monocytes absolute 0.90, Basophils 0.11, Immature Granulocyte 0.07. Electrolytes are notable for a PO4 of 4.6, Procalcitonin 0.72, CRP 15.0, ESR 19. Blood Culture from arm 10/24/2024 is positive for Gram + positive cocci. Continuing Vancomycin consider adding Teflaro ceftraoline for adjuvant therapy. Pt is lying in bed and immediately starts looking at his phonewhen this automatic typewriter inspector and case resolution specialist came into the room. 10/27/2024: No adverse events noted overnight. Vital signs, blood pressure is still elevated at 152/113 patient is still in a lot of pain. Labs are reviewed notable for a white blood cell count of 9.12 hemoglobin of 7.4 hematocrit of 21.8% with a platelet count of 388. Differential noted. Electrolytes within normal limits calcium of 8.4 phosphorus of 5.1 with a procalcitonin of 0.49 downtrending C-reactive protein of 12.5 and a sed rate 20. Patient continues to endorse severe pain feeling very crummy. New set of blood culture collected from the left a.c. this morning wound culture as well as blood culture from the port has been collected yesterday at 2:22 p.m.. Patient is stable still feeling very bad. Doesn't want to Decrease Dilaudid. Review of Systems All other systems reviewed and are negative. Objective Vitals Temp: [36.3 ??C (97.3 ??F)-36.9 ??C (98.5 ??F)] 36.7 ??C (98.1 ??F) Heart Rate: [68-111] 84 Resp: [16-22] 19 BP: (144-166)/(93-113) 152/113 Physical Exam Constitutional: General: He is not in acute distress. Appearance: Normal appearance. He is normal weight. He is not ill-appearing or diaphoretic. Eyes: General: No scleral icterus. Cardiovascular: Rate and Rhythm: Normal rate. Pulmonary: Effort: Pulmonary effort is normal. No respiratory distress. Chest: Comments: Chest Wall has a port on the patient Right side of the chest. Abdominal: General: Abdomen is flat. There is no distension. Palpations: Abdomen is soft. Musculoskeletal: General: No swelling. Normal range of motion. Cervical back: Normal range of motion. Right lower leg: No edema. Left lower leg: No edema. Skin: General: Skin is warm. Capillary Refill: Capillary refill takes less than 2 seconds. Neurological: General: No focal deficit present. Mental Status: He is alert and oriented to person, place, and time. Mental status is at baseline. Assessment & Plan Blood transfusion reaction, initial encounter Moshe Maddox is a 29 y/o Male with a known medical history of Sickle Cell Disease and Hepatitis C presents after fever first noticed after blood transfusion. Bacteremia: Blood cultures (8/15) from Hand growing Streptococcus mitis/oralis group. Blood Cultures (8/15) from port growing Staphylococcus coagulase negative, MecA Positive. Panorex (8/18) showed: Evaluation of the central structures are significantly limited by motion. Within limits of the motion degraded study, there is no apparent dental caries or definite evidence of periapical abscess. Repeat blood cultures (8/18) are NGTD. Echocardiogram shows All cardiac valves were reasonably well interrogated with 2D imaging and/or Doppler assessment and no significant valve regurgitation or stenosis is seen. There is no definite echocardiographic evidence of endocarditis. Compared to the most recently available prior study, and allowing for differences in image quality and technique, there is no significant interval change noted. With left ventricular systolic function of 55-60%. Contacted Interventional Radiology, holding procedure to remove Port. At this time patient does not want his port removed. He has stated that is his only form of access that is he needs for the exchange transfusion. Thus he continues to refuse any IV line or IV placement. Infectious Disease made aware state itis patient's decision they can only inform him of their recommendation. Antibiotics (started 10/20/24)--Vanc (for Staph) thru the port Pharmacy to help DOSE, thank you Consider 14 days of ABX from the last negative Blood Culture Volume Resuscitation - LR 150mL/hr Repeat Blood Culture. Sickle cell acute pain crisis & Sickle cell anemia: continue hydroxyurea 500mg BID, folic acid 1mg daily Pain control Hydromorphone 2mg IV q2h PRN diphenhydramine 50mg IV q4h PRN home oxycodone 30mg q4h PRN diclofenac gel 4g QID PRN acetaminophen 650mg q8h PRN, methocarbamol 750mg QID PRN, lidoderm patch daily Bowel Regimen: senna 8.6mg daily Hold off on any exchange transfusion until patient is stable. 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 HBV Surface Ag negative, Hep B core Total AB positive Hepatology follow-up at discharge Tobacco Use Disorder (Vapes) - he declined NRT FENGI: Regular DVT prophylaxis: Eliquis apixaban 5 mg PO BID GI prophylaxis: NONE Code status: Full Code Disposition: Home when stable. Saw Solano MD Internal Medicine Hospitalist [employer] Department of Internal Medicine Division of Hospital Medicine [place] [phone] Preferred method is secure chat or cell phone at [phone] Medically Ready for Discharge:Anticipated in 2-4 Days * Consults - Ever Armstrong RN - 10/27/2024 4:22 AM EDT Labs obtained in right AC x 1 attempt. Specimens labeled, scanned and sent to lab. * Care Plan - Jen Nolen RN - 10/27/2024 1:53 AM EDT Problem: Adult Inpatient Plan of Care Goal: Plan of Care Review 10/27/2024 015 by Jen Nolen RN Outcome: Ongoing, Progressing Flowsheets (Taken 10/25/20242220 by Kelli Cunningham RN) Progress: improving Outcome Evaluation: Pt's will receive around the clock pain medication, per pt request and assessment Plan of Care Reviewed With: patient Goal: Patient-Specific Goal (Individualized) 10/27/2024 013 by Jen Nolen RN Outcome: Ongoing, Progressing Flowsheets (Taken 10/26/20242311) Patient/Family-Specific Goals (Include Timeframe): pt will have adequate pain control with medication while on my shift Individualized Care Needs: pain management Anxieties, Fears or Concerns: pain Goal: Absence of Hospital-Acquired Illness or Injury 10/27/2024149 by Jen Nolen RN Outcome: Ongoing, Progressing 10/27/2024 014 by Jen Nolen RN Outcome: Ongoing, Progressing Note: Pt is on continuous IV ABX Hand hygiene during and after pt care Continuing monitoring pt 10/27/2024135 by Jen Nolen RN Outcome: Ongoing, Progressing Goal: Optimal Comfort and Wellbeing 10/27/2024149 by Jen Nolen RN Outcome: Ongoing, Progressing Intervention: pain management Problem: Infection Goal: Absence of Infection Signs and Symptoms 10/27/2024149 by Jen Nolen RN Outcome: Ongoing, Progressing Intervention: Prevent or Manage Infection 10/27/2024149 by Jen Nolen RN Flowsheets Taken 10/26/20242311 by Jen Nolen RN Isolation Precautions: contact Taken 10/25/20242220 by Kelli Cunningham RN Infection Management: aseptic technique maintained Fever Reduction/Comfort Measures: lightweight bedding lightweight clothing 10/27/2024 014 by Jen Nolen RN Flowsheets Taken 10/26/20242311 by Jen Nolen RN Isolation Precautions: contact Taken 10/25/20242220 by Kelli Cunningham RN Infection Management: aseptic technique maintained Fever Reduction/Comfort Measures: lightweight bedding lightweight clothing 10/27/2024 013 by Jen Nolen RN Flowsheets Taken 10/26/20242311 by Jen Nolen RN Isolation Precautions: contact Taken 10/25/20242220 by Kelli Cunningham RN Infection Management: aseptic technique maintained Fever Reduction/Comfort Measures: lightweight bedding lightweight clothing Problem: Pain Acute Goal: Optimal Pain Control and Function 10/27/2024 015 by Jen Nolen RN Outcome: Ongoing, Progressing Intervention: Optimize Psychosocial Wellbeing 10/27/2024 015 by Jen Nolen RN Flowsheets (Taken 10/25/2024 1354 by Channing Wallis RN) Supportive Measures: active listening utilized decision-making supported goal-setting facilitated mindfulness techniques promoted positive reinforcement provided Diversional Activities: smartphone television Spiritual Activities Assistance: hope instilled 10/27/2024 014 by Jen Nolen RN Flowsheets (Taken 10/25/2024 1354 by Channing Wallis RN) Supportive Measures: active listening utilized decision-making supported goal-setting facilitated mindfulness techniques promoted positive reinforcement provided Diversional Activities: smartphone television Spiritual Activities Assistance: hope instilled 10/27/2024 0136 by Jen Nolen RN Flowsheets (Taken 10/25/2024 1354 by Channing Wallis RN) Supportive Measures: active listening utilized decision-making supported goal-setting facilitated mindfulness techniques promoted positive reinforcement provided Diversional Activities: smartphone television Spiritual Activities Assistance: hope instilled Intervention: Develop Pain Management Plan 10/27/2024149 by Jen Nolen RN Flowsheets (Taken 10/26/2024 224) Pain Management Interventions: medication (see MAR) 10/27/2024 014 by Jen Nolen RN Flowsheets (Taken 10/26/2024 224) Pain Management Interventions: medication (see MAR) 10/27/2024 0136 by Jen Nolen RN Flowsheets (Taken 10/26/2024 224) Pain Management Interventions: medication (see MAR) Problem: Sickle Cell Disease Goal: Optimal Cerebral Tissue Perfusion Outcome: Ongoing, Progressing Intervention: Protect and Optimize Cerebral Perfusion Flowsheets Taken 10/26/20242311 by Jen Nolen RN Head of Bed (HOB) Positioning: HOB elevated Taken 10/25/20242220 by Kelli Cunningham RN Fever Reduction/Comfort Measures: lightweight bedding lightweight clothing Goal: Optimal Coping with Sickle Cell Disease Outcome: Ongoing, Progressing Intervention: Support Psychosocial Adjustment Flowsheets (Taken 10/25/2024 1354 by Channing Wallis, NASEEM) Supportive Measures: active listening utilized decision-making supported goal-setting facilitated mindfulness techniques promoted positive reinforcement provided Goal: Effective Tissue Perfusion Outcome: Ongoing, Progressing Intervention: Maintain Adequate Tissue Perfusion Flowsheets (Taken 10/27/2024 0150) Fluid/Electrolyte Management: fluids provided Goal: Absence of Infection Signs and Symptoms Outcome: Ongoing, Progressing Intervention: Prevent or Manage Infection Flowsheets Taken 10/26/2024 2312 by Jen Nolen RN Isolation Precautions: contact Taken 10/25/20242220 by Kelli Cunningham RN Infection Management: aseptic technique maintained Fever Reduction/Comfort Measures: lightweight bedding lightweight clothing Goal: Optimal Pain Control and Function Outcome: Ongoing, Progressing Intervention: Manage Acute Pain Flowsheets Taken 10/26/2024 2246 by Jen Nolen RN Pain Management Interventions: medication (see MAR) Taken 10/25/2024 1354 by Channing Wallis RN Diversional Activities: [place] television Intervention: Acknowledge Underlying Chronic Pain Flowsheets (Taken 10/27/2024 0150) Medication Review/Management: medications reviewed high-risk medications identified Goal: Optimal Oxygenation Outcome: Ongoing, Progressing Intervention: Optimize Oxygenation Flowsheets (Taken 10/26/2024 2312) Cough And Deep Breathing: done independently per patient Problem: Fall Injury Risk Goal: Absence of Fall and Fall-Related Injury Outcome: Ongoing, Progressing Intervention: Identify and Manage Contributors Flowsheets (Taken 10/27/2024 0150) Medication Review/Management: medications reviewed high-risk medications identified Intervention: Promote Injury-Free Environment Flowsheets (Taken 10/27/2024 0150) Safety Promotion/Fall Prevention: assistive device/personal items within reach clutter-free environment maintained activity supervised safety round/check completed room organization consistent nonskid shoes/slippers when out of bed * Nursing Note - Мария Reddy RN - 10/26/2024 1:50 PM EDT Order for blood cultures to be drawn from implanted chest port. Once dressing and needle removed, per protocol for blood cultures, old bloody drainage noted from under dressing. Incision proximal to implanted port appears to have dehiscence, chest area around incision edematous compared to oppositeside of chest. Notified -9 provider. New order for wound culture. * Consults - Althea Perez RD - 10/26/2024 11:03 AM EDT Adult Nutrition Evaluation Note Moshe Maddox 29 y.o. male CSN: [id number] Room/Bed 136/136A Nutrition evaluation type: screen Reason for evaluation: [facility] Hospital course: 29 y/o M presented from outpatient pheresis center for transfusion reaction. Bacteremia. Sickle cell acute pain crisis. Pt refusing port removal at this time. Past medical/ surgical history: Past Medical History[1] Surgical History[2] Social history: Additional comments: 10/26: Pt seen at bedside. Endorses a good appetite now and [employer]. No known weight changes, UBW ~175-180#. No chewing or swallowing difficulties. No N/V/D/C reported. Requesting pain medication, RN notified. Vitals and Basic Assessment: BP: (!) 148/96 Temp: 36.9 ??C (98.5 ??F) Oxygen Therapy: None (Room air) [place] Coma Scale Score: 15 Pj Scale Score: 20 Most Recent BM Date: 10/22/24 (Patient stated he had no problems) Allergies: mushroom Medications: Current Scheduled Medications[3] Current Continuous Medications[4] Current PRN Medications[5] Meds were reviewed: Yes Labs: Lab Results Component Value Date WBC 9.74 10/26/2024 HGB 7.6 (L) 10/26/2024 HCT 22.1 (L) 10/26/2024 MCV 87 10/26/2024 PLT 396 (H) 10/26/2024 Lab Results Component Value Date GLUCOSE 94 10/26/2024 CALCIUM 8.2 (L) 10/26/2024 NA 138 10/26/2024 K 4.0 10/26/2024 CO2 26 10/26/2024 CL 103 10/26/2024 BUN 6 (L) 10/26/2024 CREATININE 0.68 (L) 10/26/2024 PHOS 4.6 (H) 10/26/2024 MG 1.9 10/23/2024 Lab Results Component Value Date CRP 15.0 (H) 10/26/2024 Anthropometrics: Height: 182.9 cm (6') Weight: 78.6 kg (173 lb 4.5 oz) BMI (Calculated): 23.5 Weight Evaluation: Normal (BMI 18.5-24.9) [place] Body Weight (kg): 80.9 Percent [place] Body Weight: 97 Wt Readings from Last 10 Encounters: 10/22/24 78.6 kg (173 lb 4.5 oz) 10/19/24 78.4 kg (172 lb 13.5 oz) 10/08/24 76.8 kg (169 lb 5 oz) 09/27/24 79.4 kg (175 lb) 08/31/24 75 kg (165 lb 5.5 oz) 08/01/24 79.4 kg (175 lb) 07/06/24 78.9 kg (173 lb 15.1 oz) 06/26/24 80.6 kg (177 lb 11.1 oz) 04/26/24 80.1 kg (176 lb 9.4 oz) 04/04/24 80.1 kg (176 lb 9.4 oz) Estimated Needs: Metabolic Cart Study Results: Current Nutrition Intake: Diet Order: Adult Diet Diet Texture: Regular Percent Meals Eaten (%): 74% avg x 7 meal intakes Diet Experience and Nutrition History: Diet Education Provided: Will monitor Pertinent home medications: Eliquis, Folic Acid, Mag-Ox Scientologist needs: Nutrition Focused Physical Exam: Physical exam performed on (date): 10/26/24 Temples (muscles): None Clavicle (muscle): None Shoulder (muscle): None Interosseous (muscle): None Orbital (fat): None Triceps (fat): None Assessment of Malnutrition: Malnutrition Identified: No Nutrition Problem: Increased nutrient needs kcal/pro related to increased biological demand as evidenced by bacteremia. 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 Bloodstream infection due to central venous catheter, initial encounter 08/25/2024 Collapsed vertebra, not elsewhere classified, thoracic region, initial encounter for fracture (CMS/HCC) 08/14/2024 Epididymo-orchitis 04/26/2024 Hepatitis B Hepatitis C History of DVT (deep vein thrombosis) 11/24/2023 Hypertension Sickle cell anemia Streptococcal sepsis, unspecified (CMS/HCC) 08/18/2024 Stroke ([facility]) [2] Past Surgical History: Procedure Laterality Date CHOLECYSTECTOMY INCISION AND DRAINAGE, SKIIN ABCESS N/A PORTACATH PLACEMENT multiple since removed TONSILLECTOMY W/ ADENOIDECTOMY [3] apixaban, 5 mg, Oral, BID folic acid, 1 mg, Oral, Daily hydroxyurea, 500 mg, Oral, BID senna, 1 tablet, Oral, Daily sodium chloride, 10 mL, Intravenous, q12h vancomycin (Vancocin) 4,500 mg in sodium chloride 0.9 % 500 mL IVPB, 4,500 mg, Intravenous (Continuous Infusion), q 24h (continuous) [4] lactated Ringer's, 150 mL/hr, Last Rate: 150 mL/hr (10/26/24 0833) [5] PRN medications: acetaminophen, bisacodyl, diclofenac, diphenhydrAMINE, HYDROmorphone, methocarbamol, oxyCODONE, polyethylene glycol, Insert peripheral IV AND Saline lock IV AND sodium chloride AND sodium chloride * Progress Notes - Shawna Zarate MD - 10/26/2024 7:35 AM EDT Images from the original note were not included. GENERAL INFECTIOUS DISEASE PROGRESS NOTE Attending: Saw Solano MD Subjective: NAEON. Pt reports that he has not had any episodes of fever or chills. He reports worsening back pain and headache. Denies chest pain. Feels his current pain regimen works. Objective: Visit Vitals BP (!) 148/96 Pulse 84 Temp 36.9 ??C (98.5 ??F) Resp 16 Ht 1.829 m (6') Wt 78.6 kg (173 lb 4.5 oz) SpO2 97% BMI 23.50 kg/m?? Smoking Status Former BSA 2 m?? Physical Exam Constitutional: General: He is not in acute distress. HENT: Head: Normocephalic. Mouth/Throat: Mouth: Mucous membranes are moist. Pharynx: Oropharynx is clear. Eyes: Conjunctiva/sclera: Conjunctivae normal. Cardiovascular: Rate and Rhythm: Normal rate and regular rhythm. Pulmonary: Effort: Pulmonary effort is normal. Breath sounds: Normal breath sounds. Chest: Comments: Port on left side of chest Abdominal: General: Abdomen is flat. Palpations: Abdomen is soft. Tenderness: There is no abdominal tenderness. Musculoskeletal: General: Normal range of motion. Cervical back: Normal range of motion. No tenderness. Skin: General: Skin is warm and dry. Neurological: General: No focal deficit present. Mental Status: He is alert and oriented to person, place, and time. Psychiatric: Mood and Affect: Mood normal. Behavior: Behavior normal. Labs: CBC WBC 9.74 Hb 7.6 (L) Plt 396 (H) Hct 22.1 (L) ANC 4.33 BMP Na 138 Cl 103 BUN 6 (L) Glu 94 K 4.0 Co2 26 Cr 0.68 (L) Mg ??, Phos 4.6 (H) LFT AST ?? AlkPhos ?? T Prot ?? ALK ?? Bili ?? Alb ?? D.Bili ?? Results from last 7 days Lab Units 10/26/24 0403 10/25/24 0620 10/24/24 0629 CRP mg/L 15.0* 21.7* 29.6* Results from last 7 days Lab Units 10/26/24 0403 10/25/24 0620 10/24/24 0629 SED RATE mm/hr 19* 18* 17* Medications: Current Medications[1] Imaging/Studies: Echo, Adult Transthoracic (TTE) Limited Left Ventricle: The left ventricular systolic function is normal. The LVEF is visually estimated at 55 - 60%. Unable to assess diastolic function. Right Ventricle: The right ventricular systolic function is normal. Unable to estimate the right ventricular systolic pressure (RVSP) due to inadequate TR signal. Right Atrium: There is a catheter/lead present in the right atrium. The catheter is deep within the atrium to the level of the tricuspid valve. IVC/SVC: Based on the IVC size and respiratory variation, the estimated right atrial pressure is 3mmHg. All cardiac valves were reasonably well interrogated with 2D imaging and/or Doppler assessment and no significant valve regurgitation or stenosis is seen. There is no definite echocardiographic evidence of endocarditis. Compared to the most recently available prior study, and allowing for differences in image quality and technique, there is no significant interval change noted. Micro: Susceptibility data from last 90 days. Collected Specimen Info Organism Ampicillin Ampicillin/Sulbactam Aztreonam Cefazolin Cefepime Susceptibility Ceftriaxone Ciprofloxacin Clindamycin Daptomycin Ertapenem Erythromycin Gentamicin Levofloxacin Linezolid 10/22/24 Blood, Central Line Staphylococcus coagulase negative 10/20/24 Swab from Nares and Venecia Rectal Methicillin-Resistant Staphylococcus aureus 10/19/24 Blood, Venous Streptococcus sanguinis S Staphylococcus epidermidis (1) R S R S S Staphylococcus epidermidis (3) R S R S S 10/19/24 Blood from Hand, Left Streptococcus mitis/oralis group S 08/18/24 Blood, Venous Klebsiella pneumoniae ESBL, MDR (1) R R R R R R S S R S Klebsiella pneumoniae ESBL, MDR (2) R R R R R R S S R S 08/04/24 Blood from AC, Right Streptococcus mitis/oralis group (1) I S Gemella haemolysans Streptococcus mitis/oralis group (2) 08/04/24 Blood from Bicep, left Streptococcus mitis/oralis group S Rothia dentocariosa R R S Collected Specimen Info Organism Meropenem Minocycline Oxacillin Penicillin G Piperacillin/Tazobactam Tetracycline Tobramycin Trimethoprim/Sulfamethoxazole Vancomycin 10/22/24 Blood, Central Line Staphylococcus coagulase negative 10/20/24 Swab from Nares and Venecia Rectal Methicillin-Resistant Staphylococcus aureus 10/19/24 Blood, Venous Streptococcus sanguinis I S Staphylococcus epidermidis (1) S R R S S Staphylococcus epidermidis (3) S R R S S 10/19/24 Blood from Hand, Left Streptococcus mitis/oralis group I S 08/18/24 Blood, Venous Klebsiella pneumoniae ESBL, MDR (1) S R R R R Klebsiella pneumoniae ESBL, MDR (2) S R R R R 08/04/24 Blood from AC, Right Streptococcus mitis/oralis group (1) S Gemella haemolysans Streptococcus mitis/oralis group (2) 08/04/24 Blood from Bicep, left Streptococcus mitis/oralis group I Rothia dentocariosa S S Results Procedure Component Value Units Date/Time Blood Culture (Aerobic/Anaerobet Set) [[id number]] Collected: 10/22/24 0516 Order Status: Completed Specimen: Blood, Central Line Updated: 10/23/24 0701 Culture No growth at day 1 Blood Culture (Aerobic/Anaerobet Set) [[id number]] (Abnormal) (Susceptibility) Collected: 10/19/242103 Order Status: Completed Specimen: Blood, Venous Updated: 10/22/242115 Culture Staphylococcus coagulase negative Comment: Isolated from aerobic and anaerobic culture bottles. Isolated from one set of blood culture bottles only. If workup required, contact bacteriology at [phone]. This organism may be associated with a contaminated culture. Correlate clinically. The organism value for this result has been updated. These results have been appended to the previously preliminary verified report. Streptococcus sanguinis Comment: Isolated from anaerobic culture bottle only. The organism value for this result has been updated. These results have been appended to the previously preliminary verified report. Gram Stain Gram positive cocci in chains Comment: Organism seen in Anaerobic Blood Culture Bottle. Positivity Date and Time to Detection: 10/20/2024. at 00 Day(s) and 18 Hour(s). This is an appended report. These results have been appended to a previously preliminary verified report. Gram positive cocci in clusters Comment: Organism seen in Anaerobic Blood Culture Bottle. Positivity Date and Time to Detection: 10/20/2024. at 00 Day(s) and 18 Hour(s). This is an appended report. These results have been appended to a previously preliminary verified report. Gram positive cocci in clusters Comment: Organism seen in Aerobic Blood Culture Bottle. Positivity Date and Time to Detection: 10/20/2024 at 00 Day(s) and 18 Hour(s). This is an appended report. These results have been appended to a previously preliminary verified report. Susceptibility Streptococcus sanguinis ETEST (Preliminary) Ceftriaxone Susceptible Penicillin G Intermediate Additional Susceptibilities and/or Identification [[id number]] Collected: 10/22/241653 Order Status: Completed Specimen: Blood from Hand, Left Additional Susceptibilities and/or Identification [[id number]] Collected: 10/22/241653 Order Status: Completed Specimen: Blood, Venous Blood Culture (Aerobic/Anaerobet Set) [[id number]] (Abnormal) (Susceptibility) Collected: 10/19/241954 Order Status: Completed Specimen: Blood from Hand, Left Updated: 10/21/242009 Culture Streptococcus mitis/oralis group Comment: Isolated from aerobic culture bottle only. This isolate has been identified using the FDA Approved Highfive System The organism value for this result has been updated. These results have been appended to the previously preliminary verified report. This is a corrected result. Previous organism was Streptococcus Alpha Hemolytic on 10/21/2024 at 0753 EDT. Gram Stain Gram positive cocci in chains Comment: Organism seen in Aerobic Blood Culture Bottle. Positivity Date and Time to Detection: 10/20/2024 at 00 Day(s) and 11 Hour(s). This is an appended report. These results have been appended to a previously preliminary verified report. Narrative: Low blood volume submitted, results may be compromised Susceptibility Streptococcus mitis/oralis group ETEST (Preliminary) Ceftriaxone Susceptible Penicillin G Intermediate Multi Drug Resistance Test [[id number]] (Abnormal) Collected: 10/20/24 0310 Order Status: Completed Specimen: Swab from Nares and Venecia Rectal Updated: 10/21/24 0848 Culture Methicillin-Resistant Staphylococcus aureus Comment: The organism value for this result has been updated. These results have been appended to the previously preliminary verified report. <null> has been updated to reportable. Narrative: This test was developed and its performance characteristics determined by the [facility]. Although the media is FDA-approved, it is not FDA-approved for all specimen types submitted. The FDA has determined that such clearance or approval is not necessary. This test is used for surveillance purposes. It should not be regarded as investigational or for research. The [facility] is certified under the ClinicalLaboratory Improvement Amendments of 1988 (CLIA-88) as qualified to perform high complexity clinical laboratory testing. Bacterial ID Gram Positive [[id number]] (Abnormal) Collected: 10/19/242103 Order Status: Completed Specimen: Blood, Venous Updated: 10/21/24 08 Staphylococcus Result Detected Comment: From aerobic bottle only Assess if contaminant or clinically relevant pathogen. Consider clinical stability and immune status of patient. These results have been appended to a previously final verified report. Staphylococcus epidermidis Result Detected Comment: From aerobic bottle only Assess if contaminant or clinically relevant pathogen. Consider clinical stability and immune status of patient. These results have been appended to a previously final verified report. Streptococcus Result Detected Comment: From anaerobic bottle only MECA Result Detected Comment: From aerobic bottle only These results have been appended to a previously final verified report. Narrative: Analytes include: Bacillus cereus group, Bacillus subtilis group, Corynebacterium, Cutibacterium acnes (P acnes), Enterococcus, Enterococcus faecalis, Enterococcus faecium, Lactobacillus, Listeria, Listeria monocytogenes, Micrococcus, Staphylococcus, Staphylococcus aureus, Staphylococcus epidermidis, Stapylcoccus lugdunesis, Streptococcus, Streptococcus agalactiae, Streptococcus anginosus group, Streptococcus pneumoniae, Streptococcus pyogenes, Wharotn gram negative target, Wharton Miguel target and mecA, mecC, Mine and vanB resistance genes. NOTE: A Not Detected result for result for a resistance gene does not indicate susceptibility to antimicrobials by mechanisms other than carrying the resistance genes detected by the BCID-GP assay. . WHARTON MIGUEL: Inclusive of Miguel albicans, Miguel glabrata, Pichia kudriavzevii (formerly Candidakrusei) and Miguel parapsilosis only. . WHARTON GRAM NEGATIVE: Includes but not limited to Acinetobacter, Bacteroides, Enterobacteriaceae, Neisseria, Pseudomonas, Serratia, Stenotrophomonas maltophilia. . Reference Value: Not detected for all analytes tested. Micro: Transfusion bag culture: no growth day 5 BC 10/19 from left hand: strep mitis/oralis (1 out of 2 bottles) BC 10/19 from port: staph epidermidis (2 out of 2 bottles) (mecA positive), biotype 2 staph coagulase neg (1 out of 2 bottles), strep sanguinis (1 out of 2 bottles) BC 10/22 from port: staph coagulase neg (1 out of 2 bottles), ID: MRSE BC 10/23 from port: no growth day 2 BC 10/24 peripheral: gram positive cocci in clusters; Staph mecA detected MRSA nares positive Antibiotics: Vanc: 10/20 - P Ceftriaxone: 10/20 - 10/22 Cefepime: 10/20 Assessment: Patient Summary: Moshe Maddox is a 29 y.o. male with PMHx sickle cell disease, anemia, chronic pain, multiple DVTon apixaban, stroke (childhood), HCV, and HTN who presented to ED on 10/19 from outpatient pheresis center for a transfusion reaction. Pt had double lumen port placed on 10/04 with IR. He was hospitalized at from 10/04-10/14 for acutepain crisis. On 10/19, within 4-6 minutes of RBC transfusion, pt developed fever, chills, itching, lightheadedness, nausea, severe sharp back pain radiating from his lumbar region into his neck. The transfusion was stopped and pt received diphenhydramine along with home oxycodone and 250ml NS bolus g iven. He had been premedicated with acetaminophen and famotidine. Pt continued to have fever up to 101 and was brought to the ED. In the ED, pt was febrile to 102.4, tachy to 100s. WBC 32.9, Hgb 7, INR 1.4, LDH 1,369, CRP 61.1. CXR no acute findings. Pt received cefepime on 10/20, started on ceftriaxone and vanc since 10/20. Ceftriaxone discontinued on 10/22 at ID rec given that Vanc should cover both staph and strep. Peripheral BC on 10/19 grew strep mitis/oralis (1 out of 2 bottles). BC on 10/[facility] grew staph epidermidis (mecA positive) (2 out of 2 bottles) and strep sanguinis (1 out of 2bottles). XR panorex 10/22 shows no apparent dental caries or definitive evidence of periapical abscess. BC from 10/22 growing staph coagulase neg (1 out of 2 bottles). BC from port on 10/23 showed no growth on day 2. BC 10/24 peripheral shows gram positive cocci in clusters, bacterial ID staph mecA positive. Echo shows no evidence of endocarditis. Pt is currently afebrile with leukocytosis. WBC have downtrended (32.9 -> 9.74). Pt understands standard of care would be to remove the port but would not like to have the port removed at this point. IR had planned for port removal 10/24 but pt does not want the port removed. Pt may be more open to removing port if alternate sites were offered. We would recommend delivering his abx through the port. We would recommend continuing Vancomycin, continuous infusion. We would recommend 14 days of IV vancomycin from date of negative blood culture. Please get blood cultures from periphery and port today 10/26. Pt should follow up outpatient with Kike Prado/ Dr. Dubon 11/06 at 9 AM. OPAT evaluated the patient: standard enrollment, he is willing to do continuous if needed. ID Problem List: #CLABSI #Strep bacteremia #MRSE bacteremia #sickle cell acute pain crisis #hepatitis C Recommendations: - Ideally, we would recommend removing the port. Pt understands standard of care would be to removethe port but would not like to have the port removed at this point. If the port is going to remain,we would recommend delivering abx through it. - Continue Vancomycin, administer through port, continuous infusion - Follow blood cultures from 10/23 and 10/24 - We would recommend 14 days of IV vancomycin from date of negative blood culture. - Please get blood cultures on 10/26 from both port and periphery - Follow up with ID outpatient, Kike Prado/ Dr. Dubon 11/06 at 9 AM @ [facility] - Trend CBC w/diff, CRP, CMP, BMP to monitor for toxicity and ensure appropriate response to treatment - Plan of care and recommendations discussed with patient's primary team. Thank you for allowing us to participate in this patient's care. GEN ID will continue to follow. Shawna Zarate MD PGY1 History, assessment, and plan discussed with ID attending [1] Current Facility-Administered Medications Medication Dose Route Frequency Provider Last Rate Last Admin acetaminophen (Tylenol) tablet 650 mg 650 mg Oral q8h PRN Malik Trent [employer] 650 mg at 10/24/24 1553 apixaban (Eliquis) tablet 5 mg 5 mg Oral BID Saw Solano MD 5 mg at 10/26/24 0835 bisacodyl (Dulcolax) EC tablet 10 mg 10 mg Oral Daily PRN Malik Trent APRN diclofenac (Voltaren) 1 % topical gel 4 g 4 g Topical 4x daily PRN Malik Trent APRN diphenhydrAMINE (Benadryl) injection 50 mg 50 mg Intravenous q4h PRN Michael Andrade MD 50 mg at 10/26/24 1107 folic acid (Folvite) tablet 1 mg 1 mg Oral Daily Malik Trent APRN 1 mg at 10/26/24 0835 HYDROmorphone (Dilaudid) injection 2 mg 2 mg Intravenous q2h PRN Michael Andrade MD 2 mg at 10/26/24 1107 hydroxyurea (Hydrea) capsule 500 mg 500 mg Oral BID Malik Trent APRN 500 mg at 10/26/24 0835 lactated Ringer's infusion 150 mL/hr Intravenous Continuous Michael Andrade MD 150 mL/hr at 10/26/24 0833 150 mL/hr at 10/26/24 0833 methocarbamol (Robaxin) tablet 750 mg 750 mg Oral 4x daily PRN Malik Trent APRN 750 mg at 10/25/24 2057 oxyCODONE (Roxicodone) immediate release tablet 30 mg 30 mg Oral q4h PRN Saw Solano MD 30 mg at 10/26/24 0939 polyethylene glycol (Miralax) packet 17 g 17 g Oral Daily PRN Malik Trent APRN senna (Senokot) tablet 8.6 mg 1 tablet Oral Daily Malik Trent APRN 8.6 mg at 10/25/24 0804 sodium chloride 0.9 % flush 10 mL 10 mL Intravenous q12h Malik Trent APRN 10 mL at 10/26/24 1107 And sodium chloride 0.9 % flush 10 mL 10 mL Intravenous PRN Malik Trent APRN vancomycin (Vancocin) 4,500 mg in sodium chloride 0.9 % 500 mL IVPB 4,500 mg Intravenous (Continuous Infusion) q 24h (continuous) Saw Solano MD 24.6 mL/hr at 10/25/24 1658 4,500 mg at 10/25/24 1658 Facility-Administered Medications Ordered in Other Encounters Medication Dose Route Frequency Provider Last Rate Last Admin acetaminophen (Tylenol) tablet 650 mg 650 mg Oral Once PRN Parth Jaquez MD alteplase (Cathflo Activase) injection 2 mg 2 mg Intracatheter PRN Parth Jaquez MD calcium carbonate (Tums) chewable tablet 2,000 mg 2,000 mg Oral 4x daily PRN Parth Jaquez MD diphenhydrAMINE (Benadryl) injection 50 mg 50 mg Intravenous Once PRN Parth Jaquez MD diphenhydrAMINE (Benadryl) tablet 25 mg 25 mg Oral Once PRN Parth Jaquez MD diphenhydrAMINE (Benadryl) tablet 50 mg 50 mg Oral Once PRN Parth Jaquez MD EPINEPHrine (Adrenalin) 1 MG/ML injection 0.1 mg 0.1 mg Intravenous Once PRN Parth Jaquez MD EPINEPHrine (Adrenalin) 1 MG/ML injection 0.3 mg 0.3 mg Intramuscular Once PRN Parth Jaquez MD famotidine (Pepcid) tablet 20 mg 20 mg Oral Daily PRN Parth Jaquez MD famotidine PF (Pepcid) injection 20 mg 20 mg Intravenous Once PRN Parth Jaquez MD methylPREDNISolone sodium succinate (PF) (SOLU-Medrol) injection 125 mg 125 mg Intravenous Once Parth Jaquez MD ondansetron (Zofran) tablet 8 mg 8 mg Oral q8h PRN Parth Jaquez MD sodium chloride 0.9 % bolus 250 mL 250 mL Intravenous Once Parth Jaquez MD sodium citrate anticoagulant 4 % flush 3 mL 3 mL Intracatheter PRN Parth Jaquez MD Cosigned by Jacqueline Dubon MD at 10/27/2024 9:52 AM EDT Associated attestation - Jacqueline Dubon MD - 10/27/2024 9:52 AM EDT I saw and evaluated the patient with the resident/fellow. I discussed the case with the resident/fellow and agree with the findings and plan as documented. Nursing staff reported concerns regarding skin at port site. Please obtain ultrasound of port site on Tuesday. Dr Vyas will be lead of general ID team on Tuesday. I am diamond assorter this weekend if there are questions. * Progress Notes - Saw Solano MD - 10/26/2024 7:02 AM EDT Abdoul Maddox is a 29 y.o. 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 Patient premedicated prior to initiation of 1st unit for exchange with acetaminophen and famotidine. Patient reports within 4-6 minutes after starting the acute onset of chills, palpitations, diffuseitching, and severe sharp LBP radiating up into his neck .Transfusion was stopped and diphenhydramine along with home oxycodone and 250ml NS bolus given. Symptoms persisted with 9/10 back pain and temp up to 101F, thus brought to ER for evaluation. Febrile in ED to 102.4F, tachy 100's, other VSS. Labs pertinent for WBC 32.9, Hgb stable at 7, retic count 227.3, INR 1.4, LDH 1,369. CXR no acute findings. Transfusion reaction and BCX collected. Hem advised admit for pain control and further infectious work-up. 10/20/2024: No acute events overnight. 10/21/2024: No acute events overnight. 10/22/2024: No acute events overnight. As per ID, Ideally, we would recommend removing the port. Ptunderstands standard of care would be to remove the port but would not like to have the port removed at this point. If the port is going to remain, we would recommend delivering abx through it. If ptcontinues to be bacteremic, then the port should be removed. DC Rocephin ceftriaxone, continue Vancomycin. Echocardiogram. Panorex shows Evaluation of the central structures are significantly limitedby motion. Within limits of the motion degraded study, there is no apparent dental caries or definite evidence of periapical abscess. 10/23/2024: No adverse events noted overnight. Echocardiogram is still pending. Pt is adamant aboutnot having his port pulled. He is an extremely difficult stick. Patient states that he is will not consent to having the port removed even for a few days. He notes that he has NO veins and Vascular access has a tough time getting blood or an IV even with US guidance. Will attempt to get Blood Cultures tomorrow AM. At around 14 18 was notified by microbiology that the patient was growing Gram-positive cocci in clusters from the blood yesterday drawn at 5:18 a.m. infectious disease notified. Spoke with the patient who was very distraught feels he is not being treated adequately concerned about leaving against medical advice. Explained to the patient regarding the probability stroke myocardialinfarction and other events in the case patient chooses against medical advice. Patient understands. He is alert and oriented able to walk does have the capacity his own medical decision. At this time we will continue with vancomycin Interventional Radiology has also been consulted to have the port removed. Two sets of blood cultures 1 from the central line in 1 from the periphery has been ordered to be done stat. 10/24/2024: No adverse events noted overnight. Vitals reviewed labs reviewed this morning. White blood cell count of 9.97 hemoglobin of 8.1 grams/deciliter hematocrit of 23.5% with a platelet count of 382. Differential reviewed, WNL. Labs reviewed showing a downtrending procalcitonin as well as a downtrending ESR and CRP. Blood culture taken from left arm as well as from central line. Discussed with the patient and with Infectious Disease, the patient is adamant about not removing the port. Cancelled port removal. IR made aware. At this time we will monitor the patient cautiously, hematology reached out in regards to having a exchange transfusion we will hold off until the patient is stable. Continue with IV infusion. Patient continues to refuse PORT exchange. Patient is A&O x3 understands the risks and benefit he has capacity to make medical decisions at his own volition. 10/25/2024: No adverse events noted overnight. Vitals reviewed, blood pressure this morning is 151/97. Labs reviewed showing a white blood cell count 11.83 hemoglobin 7.3 grams/deciliter hematocrit 21.2% with a platelet count of 400 absolute neutrophil count of 6.61 with a monocyte 0.98 with absolute basophil count of 0.11. Sed rate is 18. Pt is lying in bed, he is feeling a little bit better today. 10/26/2024: No adverse events noted overnight. Vitals reviewed, blood pressure this morning is 152/103. Labs reviewed showing a white blood cell count 9.74 Hgb 7.6 g/dL, Hct 22.1% PLT 396. Differential notes Lymphocytes absolute 3.97, Monocytes absolute 0.90, Basophils 0.11, Immature Granulocyte 0.07. Electrolytes are notable for a PO4 of 4.6, Procalcitonin 0.72, CRP 15.0, ESR 19. Blood Culture from arm 10/24/2024 is positive for Gram + positive cocci. Continuing Vancomycin consider adding Teflaro ceftraoline for adjuvant therapy. Pt is lying in bed and immediately starts looking at his phonewhen this automatic typewriter inspector and case resolution specialist came into the room. Review of Systems All other systems reviewed and are negative. Objective Vitals Temp: [36.3 ??C (97.4 ??F)-37 ??C (98.6 ??F)] 36.4 ??C (97.6 ??F) Heart Rate: [74-92] 79 Resp: [16-19] 19 BP: (131-154)/(82-116) 152/103 Physical Exam Constitutional: General: He is not in acute distress. Appearance: Normal appearance. He is normal weight. He is not ill-appearing or diaphoretic. Eyes: General: No scleral icterus. Cardiovascular: Rate and Rhythm: Normal rate. Pulmonary: Effort: Pulmonary effort is normal. No respiratory distress. Chest: Comments: Chest Wall has a port on the patient Right side of the chest. Abdominal: General: Abdomen is flat. There is no distension. Palpations: Abdomen is soft. Musculoskeletal: General: No swelling. Normal range of motion. Cervical back: Normal range of motion. Right lower leg: No edema. Left lower leg: No edema. Skin: General: Skin is warm. Capillary Refill: Capillary refill takes less than 2 seconds. Neurological: General: No focal deficit present. Mental Status: He is alert and oriented to person, place, and time. Mental status is at baseline. Assessment & Plan Blood transfusion reaction, initial encounter Moshe Maddox is a 29 y/o Male with a known medical history of Sickle Cell Disease and Hepatitis C presents after fever first noticed after blood transfusion. Bacteremia: Blood cultures (8/15) from Hand growing Streptococcus mitis/oralis group. Blood Cultures (8/15) from port growing Staphylococcus coagulase negative, MecA Positive. Panorex (18) showed: Evaluation of the central structures are significantly limited by motion. Within limits of the motion degraded study, there is no apparent dental caries or definite evidence of periapical abscess. Repeat blood cultures (/18) are NGTD. Echocardiogram shows All cardiac valves were reasonably well interrogated with 2D imaging and/or Doppler assessment and no significant valve regurgitation or stenosis is seen. There is no definite echocardiographic evidence of endocarditis. Compared to the most recently available prior study, and allowing for differences in image quality and technique, there is no significant interval change noted. With left ventricular systolic function of 55-60%. Contacted Interventional Radiology, holding procedure to remove Port. At this time patient does not want his port removed. He has stated that is his only form of access that is he needs for the exchange transfusion. Thus he continues to refuse any IV line or IV placement. Infectious Disease made aware state itis patient's decision they can only inform him of their recommendation. Antibiotics (started 10/20/24)--Vanc (for Staph) thru the port Pharmacy to help DOSE, thank you Consider 14 days of ABX from the last negative Blood Culture Volume Resuscitation - LR 150mL/hr Repeat Blood Culture. Sickle cell acute pain crisis & Sickle cell anemia: continue hydroxyurea 500mg BID, folic acid 1mg daily Pain control Hydromorphone 2mg IV q2h PRN diphenhydramine 50mg IV q4h PRN home oxycodone 30mg q4h PRN diclofenac gel 4g QID PRN acetaminophen 650mg q8h PRN, methocarbamol 750mg QID PRN, lidoderm patch daily Bowel Regimen: senna 8.6mg daily Hold off on any exchange transfusion until patient is stable. 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 HBV Surface Ag negative, Hep B core Total AB positive Hepatology follow-up at discharge Tobacco Use Disorder (Vapes) - he declined NRT FENGI: Regular DVT prophylaxis: Eliquis apixaban 5 mg PO BID GI prophylaxis: NONE Code status: Full Code Disposition: Home when stable. Saw Solano MD Internal Medicine Hospitalist [employer] pay[employer] Department of Internal Medicine Division of Hospital Medicine [address] [address] Preferred method is secure chat or cell phone at [phone] Medically Ready for Discharge:Anticipated in 2-4 Days * Care Plan - Kelli Cunningham RN - 10/25/2024 10:24 PM EDT Problem: Adult Inpatient Plan of Care Goal: Plan of Care Review Outcome: Ongoing, Progressing Flowsheets (Taken 10/25/20242220) Progress: improving Outcome Evaluation: Pt's will receive around the clock pain medication, per pt request and assessment Plan of Care Reviewed With: patient Goal: Patient-Specific Goal (Individualized) Outcome: Ongoing, Progressing Flowsheets Taken 10/25/20242220 by Kelli Cunningham RN Individualized Care Needs: pain control Anxieties, Fears or Concerns: pain control Taken 10/25/2024 1354 by Channing Wallis, RN Patient/Family-Specific Goals (Include Timeframe): Patient will acheive and maintain tolerable level of pain for duration of shift Goal: Absence of Hospital-Acquired Illness or Injury Outcome: Ongoing, Progressing Note: Pt is afebrile, vitals stable Goal: Optimal Comfort and Wellbeing Outcome: Ongoing, Progressing Note: Pt will be assessed and woken for pain medication to maintain pain control Problem: Infection Goal: Absence of Infection Signs and Symptoms Outcome: Ongoing, Progressing Intervention: Prevent or Manage Infection Flowsheets (Taken 10/25/20242220) Infection Management: aseptic technique maintained Fever Reduction/Comfort Measures: lightweight bedding lightweight clothing Isolation Precautions: precautions maintained contact Problem: Pain Acute Goal: Optimal Pain Control and Function Outcome: Ongoing, Progressing Intervention: Develop Pain Management Plan Flowsheets (Taken 10/25/20242220) Pain Management Interventions: medication (see MAR) [id number] dosing utilized awakened for pain meds per patient request * Care Plan - Channing Wallis RN - 10/25/2024 1:57 PM EDT Problem: Adult Inpatient Plan of Care Goal: Plan of Care Review Outcome: Ongoing, Progressing Flowsheets (Taken 10/25/2024 1354) Progress: improving Outcome Evaluation: Patient's pain will be controlled during shift Plan of Care Reviewed With: patient Goal: Patient-Specific Goal (Individualized) Outcome: Ongoing, Progressing Flowsheets (Taken 10/25/2024 1354) Patient/Family-Specific Goals (Include Timeframe): Patient will acheive and maintain tolerable level of pain for duration of shift Individualized Care Needs: Pain control and infection management Anxieties, Fears or Concerns: Pain control and not having port removed Goal: Absence of Hospital-Acquired Illness or Injury Outcome: Ongoing, Progressing Goal: Optimal Comfort and Wellbeing Outcome: Ongoing, Progressing Problem: Infection Goal: Absence of Infection Signs and Symptoms Outcome: Ongoing, Progressing Intervention: Prevent or Manage Infection Flowsheets (Taken 10/25/2024 1354) Infection Management: aseptic technique maintained Fever Reduction/Comfort Measures: lightweight bedding Isolation Precautions: precautions maintained Problem: Pain Acute Goal: Optimal Pain Control and Function Outcome: Ongoing, Progressing Intervention: Optimize Psychosocial Wellbeing Flowsheets (Taken 10/25/2024 1354) Supportive Measures: active listening utilized decision-making supported goal-setting facilitated mindfulness techniques promoted positive reinforcement provided Diversional Activities: smartphone television Spiritual Activities Assistance: hope instilled Intervention: Develop Pain Management Plan Flowsheets (Taken 10/25/2024 1354) Pain Management Interventions: medication (see MAR) [id number] dosing utilized * Progress Notes - Samantha Melchor PharmD - 10/25/2024 12:34 PM EDT Pharmacokinetic Consult - Therapeutic Drug Monitoring HPI and Hospital Course: Moshe Maddox is a 29 y.o. male presenting with port associated bacteremia. who continues on vancomycin for . Pharmacy was consulted for management of vancomycin. Levels were obtained to assess safety and efficacy of current dosing regimen. Dose History: Recent Vancomycin Admin Vancomycin HCl in NaCl (Vancocin) IVPB 1,000 mg (mg) 1,000 mg Given 10/25/24 0807 1,000 mg Given 10/24/24 2311 1,000 mg Given 1557 1,000 mg Given 0839 1,000 mg Given 0001 1,000 mg Given 10/23/24 1633 1,000 mg Given 0910 1,000 mg Given 10/22/24 2345 1,000 mg Given 1819 Vancomycin HCl in NaCl (Vancocin) IVPB 1,000 mg (mg) 1,000 mg Given 10/22/24 0830 1,000 mg Given 0036 1,000 mg Given 10/21/24 1607 1,000 mg Given 0837 1,000 mg Given 10/20/24 2354 vancomycin in NS (Vancocin) IVPB 1,500 mg (mg) 1,500 mg New Bag 10/20/24 1213 Creatinine, Plasma (mg/dL) Date/Time Value 10/25/2024 0620 0.67 (L) 10/24/2024 0629 0.66 (L) 10/23/2024 0614 0.68 (L) Estimated Creatinine Clearance: 125 mL/min (A) (by C-G formula based on SCr of 0.67 mg/dL (L)). Vancomycin Pharmacokinetic Evaluation: Current Dose: 1000 mg IV Q8 hr infused over 60 min Date/Time of Most Recent Dose: 10/25/24 0807 C1 random (ug/mL): 14.7 mcg/mL C2 trough (ug/mL): 8.5 mcg/mL Vancomycin ke (hr ^-1): 0.1231 Vancomycin half-life (hr): 5.6 Cmax, actual (ug/mL): 19.43 Ctrough, actual (ug/mL): 8.21 Vancomycin Vd (L): Vancomycin Vd (L/kg): Steady state Vd : 77.296 Steady state Vd : 0.983 Vancomycin AUC 24hr (mg??hr/L): 315 Recommended TDD: 4762 mg New Total Daily Dose (mg): 4500 mg IV (Continuous infusion) infused over 24 hours New predicted vancomycin Peak: New predicted vancomycin Trough: New predicted vancomycin AUC: Assessment and Recommendations: 1. Levels drawn appropriately 2. AUC and trough subtherapeutic. Recommend to change vancomycin to 4500 mg continuous infusion 3) Monitor renal function (SCr and BUN) and UOP at least 2-3x/week or more frequently if renal function changes. 4) Obtain random vancomycin level with AM labs on 10/27. Pharmacy will continue to follow, Submitted by: Samantha Melchor PharmD 10/25/2024 12:32 PM * Progress Notes - Lauren Cummins RN - 10/25/2024 12:03 PM EDT Case Management Adult Progress Note Moshe Maddox 29 y.o. male CSN: [id number] Admission: 10/19/2024 5:31 PM Primary Problem: Blood transfusion reaction, initial encounter Anticipated Discharge Date: NMR; TBD Has Discharge Plans Changed? Home Daily Living Activities: Functional Status: Independent Living Arrangements: Family (Lives with mother) Type of Residence: Private residence, Single Level (1 step to enter home.) [address] [facility] [address] Current DME: Equipment Currently Used at Home: none Income Information: Income Source: Disabled Income/Expense Information: Expenses exceed income Current Resources Utilized: Food [place] Additional Comments: RNCM informed patient is NMR; bacteremia planned Port removal; but patient hasrefused- ID POC pending; patient will need IV Antibiotics- Standard OPAT per Nurse Navigator. RNCM will continue to follow assess and identify discharge needs. Lauren Cummins RN Case Management * Progress Notes - Shawna Zarate MD - 10/25/2024 7:36 AM EDT Images from the original note were not included. GENERAL INFECTIOUS DISEASE PROGRESS NOTE Attending: Saw Solano MD Subjective: NAEON. Pt reports that he has not had any episodes of fever or chills. He reports fatigue and generalized pain. Objective: Visit Vitals BP (!) 153/96 Pulse 74 Temp 37 ??C (98.6 ??F) (Oral) Resp 18 Ht 1.829 m (6') Wt 78.6 kg (173 lb 4.5 oz) SpO2 100% BMI 23.50 kg/m?? Smoking Status Former BSA 2 m?? Physical Exam Constitutional: General: He is not in acute distress. HENT: Head: Normocephalic. Mouth/Throat: Mouth: Mucous membranes are moist. Pharynx: Oropharynx is clear. Eyes: Conjunctiva/sclera: Conjunctivae normal. Cardiovascular: Rate and Rhythm: Normal rate and regular rhythm. Pulmonary: Effort: Pulmonary effort is normal. Breath sounds: Normal breath sounds. Chest: Comments: Port on left side of chest Abdominal: General: Abdomen is flat. Palpations: Abdomen is soft. Tenderness: There is no abdominal tenderness. Musculoskeletal: General: Normal range of motion. Cervical back: Normal range of motion. No tenderness. Skin: General: Skin is warm and dry. Neurological: General: No focal deficit present. Mental Status: He is alert and oriented to person, place, and time. Psychiatric: Mood and Affect: Mood normal. Behavior: Behavior normal. Labs: CBC WBC 11.83 (H) Hb 7.3 (L) Plt 400 (H) Hct 21.2 (L) ANC 6.61 (H) BMP Na 140 Cl 104 BUN 7 Glu 136 (H) K 3.7 Co2 24 Cr 0.67 (L) Mg ??, Phos 4.2 LFT AST ?? AlkPhos ?? T Prot ?? ALK ?? Bili ?? Alb ?? D.Bili ?? Results from last 7 days Lab Units 10/25/24 0620 10/24/24 0629 10/23/24 0614 CRP mg/L 21.7* 29.6* 44.2* Results from last 7 days Lab Units 10/25/24 0620 10/24/24 0629 SED RATE mm/hr 18* 17* Medications: Current Medications[1] Imaging/Studies: Echo, Adult Transthoracic (TTE) Limited Left Ventricle: The left ventricular systolic function is normal. The LVEF is visually estimated at 55 - 60%. Unable to assess diastolic function. Right Ventricle: The right ventricular systolic function is normal. Unable to estimate the right ventricular systolic pressure (RVSP) due to inadequate TR signal. Right Atrium: There is a catheter/lead present in the right atrium. The catheter is deep within the atrium to the level of the tricuspid valve. IVC/SVC: Based on the IVC size and respiratory variation, the estimated right atrial pressure is 3mmHg. All cardiac valves were reasonably well interrogated with 2D imaging and/or Doppler assessment and no significant valve regurgitation or stenosis is seen. There is no definite echocardiographic evidence of endocarditis. Compared to the most recently available prior study, and allowing for differences in image quality and technique, there is no significant interval change noted. Micro: Susceptibility data from last 90 days. Collected Specimen Info Organism Ampicillin Ampicillin/Sulbactam Aztreonam Cefazolin Cefepime Susceptibility Ceftriaxone Ciprofloxacin Clindamycin Daptomycin Ertapenem Erythromycin Gentamicin Levofloxacin Linezolid 10/22/24 Blood, Central Line Staphylococcus coagulase negative 10/20/24 Swab from Nares and Venecia Rectal Methicillin-Resistant Staphylococcus aureus 10/19/24 Blood, Venous Streptococcus sanguinis S Staphylococcus epidermidis (1) R S R S S Staphylococcus epidermidis (3) 10/19/24 Blood from Hand, Left Streptococcus mitis/oralis group S 08/18/24 Blood, Venous Klebsiella pneumoniae ESBL, MDR (1) R R R R R R S S R S Klebsiella pneumoniae ESBL, MDR (2) R R R R R R S S R S 08/04/24 Blood from AC, Right Streptococcus mitis/oralis group (1) I S Gemella haemolysans Streptococcus mitis/oralis group (2) 08/04/24 Blood from Bicep, left Streptococcus mitis/oralis group S Rothia dentocariosa R R S Collected Specimen Info Organism Meropenem Minocycline Oxacillin Penicillin G Piperacillin/Tazobactam Tetracycline Tobramycin Trimethoprim/Sulfamethoxazole Vancomycin 10/22/24 Blood, Central Line Staphylococcus coagulase negative 10/20/24 Swab from Nares and Venecia Rectal Methicillin-Resistant Staphylococcus aureus 10/19/24 Blood, Venous Streptococcus sanguinis I S Staphylococcus epidermidis (1) S R R S S Staphylococcus epidermidis (3) 10/19/24 Blood from Hand, Left Streptococcus mitis/oralis group I 08/18/24 Blood, Venous Klebsiella pneumoniae ESBL, MDR (1) S R R R R Klebsiella pneumoniae ESBL, MDR (2) S R R R R 08/04/24 Blood from AC, Right Streptococcus mitis/oralis group (1) S Gemella haemolysans Streptococcus mitis/oralis group (2) 08/04/24 Blood from Bicep, left Streptococcus mitis/oralis group I Rothia dentocariosa S S Results Procedure Component Value Units Date/Time Blood Culture (Aerobic/Anaerobet Set) [[id number]] Collected: 10/22/24 0516 Order Status: Completed Specimen: Blood, Central Line Updated: 10/23/24 0701 Culture No growth at day 1 Blood Culture (Aerobic/Anaerobet Set) [[id number]] (Abnormal) (Susceptibility) Collected: 10/19/242103 Order Status: Completed Specimen: Blood, Venous Updated: 10/22/242115 Culture Staphylococcus coagulase negative Comment: Isolated from aerobic and anaerobic culture bottles. Isolated from one set of blood culture bottles only. If workup required, contact bacteriology at [phone]. This organism may be associated with a contaminated culture. Correlate clinically. The organism value for this result has been updated. These results have been appended to the previously preliminary verified report. Streptococcus sanguinis Comment: Isolated from anaerobic culture bottle only. The organism value for this result has been updated. These results have been appended to the previously preliminary verified report. Gram Stain Gram positive cocci in chains Comment: Organism seen in Anaerobic Blood Culture Bottle. Positivity Date and Time to Detection: 10/20/2024. at 00 Day(s) and 18 Hour(s). This is an appended report. These results have been appended to a previously preliminary verified report. Gram positive cocci in clusters Comment: Organism seen in Anaerobic Blood Culture Bottle. Positivity Date and Time to Detection: 10/20/2024. at 00 Day(s) and 18 Hour(s). This is an appended report. These results have been appended to a previously preliminary verified report. Gram positive cocci in clusters Comment: Organism seen in Aerobic Blood Culture Bottle. Positivity Date and Time to Detection: 10/20/2024 at 00 Day(s) and 18 Hour(s). This is an appended report. These results have been appended to a previously preliminary verified report. Susceptibility Streptococcus sanguinis ETEST (Preliminary) Ceftriaxone Susceptible Penicillin G Intermediate Additional Susceptibilities and/or Identification [[id number]] Collected: 10/22/24 1654 Order Status: Completed Specimen: Blood from Hand, Left Additional Susceptibilities and/or Identification [[id number]] Collected: 10/22/24 1654 Order Status: Completed Specimen: Blood, Venous Blood Culture (Aerobic/Anaerobet Set) [[id number]] (Abnormal) (Susceptibility) Collected: 10/19/241954 Order Status: Completed Specimen: Blood from Hand, Left Updated: 10/21/242009 Culture Streptococcus mitis/oralis group Comment: Isolated from aerobic culture bottle only. This isolate has been identified using the FDA Approved Blue Source CA System The organism value for this result has been updated. These results have been appended to the previously preliminary verified report. This is a corrected result. Previous organism was Streptococcus Alpha Hemolytic on 10/21/2024 at 0753 EDT. Gram Stain Gram positive cocci in chains Comment: Organism seen in Aerobic Blood Culture Bottle. Positivity Date and Time to Detection: 10/20/2024 at 00 Day(s) and 11 Hour(s). This is an appended report. These results have been appended to a previously preliminary verified report. Narrative: Low blood volume submitted, results may be compromised Susceptibility Streptococcus mitis/oralis group ETEST (Preliminary) Ceftriaxone Susceptible Penicillin G Intermediate Multi Drug Resistance Test [[id number]] (Abnormal) Collected: 10/20/24 0310 Order Status: Completed Specimen: Swab from Nares and Venecia Rectal Updated: 10/21/24 0848 Culture Methicillin-Resistant Staphylococcus aureus Comment: The organism value for this result has been updated. These results have been appended to the previously preliminary verified report. <null> has been updated to reportable. Narrative: This test was developed and its performance characteristics determined by the [facility]. Although the media is FDA-approved, it is not FDA-approved for all specimen types submitted. The FDA has determined that such clearance or approval is not necessary. This test is used for surveillance purposes. It should not be regarded as investigational or for research. The [facility] is certified under the ClinicalLaboratory Improvement Amendments of 1988 (CLIA-88) as qualified to perform high complexity clinical laboratory testing. Bacterial ID Gram Positive [[id number]] (Abnormal) Collected: 10/19/24 210 Order Status: Completed Specimen: Blood, Venous Updated: 10/21/24 0806 Staphylococcus Result Detected Comment: From aerobic bottle only Assess if contaminant or clinically relevant pathogen. Consider clinical stability and immune status of patient. These results have been appended to a previously final verified report. Staphylococcus epidermidis Result Detected Comment: From aerobic bottle only Assess if contaminant or clinically relevant pathogen. Consider clinical stability and immune status of patient. These results have been appended to a previously final verified report. Streptococcus Result Detected Comment: From anaerobic bottle only MECA Result Detected Comment: From aerobic bottle only These results have been appended to a previously final verified report. Narrative: Analytes include: Bacillus cereus group, Bacillus subtilis group, Corynebacterium, Cutibacterium acnes (P acnes), Enterococcus, Enterococcus faecalis, Enterococcus faecium, Lactobacillus, Listeria, Listeria monocytogenes, Micrococcus, Staphylococcus, Staphylococcus aureus, Staphylococcus epidermidis, Stapylcoccus lugdunesis, Streptococcus, Streptococcus agalactiae, Streptococcus anginosus group, Streptococcus pneumoniae, Streptococcus pyogenes, Wharton gram negative target, Wharton Miguel target and mecA, mecC, Mine and vanB resistance genes. NOTE: A Not Detected result for result for a resistance gene does not indicate susceptibility to antimicrobials by mechanisms other than carrying the resistance genes detected by the BCID-GP assay. . WHARTON MIGUEL: Inclusive of Miguel albicans, Miguel glabrata, Pichia kudriavzevii (formerly Candidakrusei) and Miguel parapsilosis only. . WHARTON GRAM NEGATIVE: Includes but not limited to Acinetobacter, Bacteroides, Enterobacteriaceae, Neisseria, Pseudomonas, Serratia, Stenotrophomonas maltophilia. . Reference Value: Not detected for all analytes tested. Micro: Transfusion bag culture: no growth day 5 BC 10/19 from left hand: strep mitis/oralis (1 out of 2 bottles) BC 10/19 from port: staph epidermidis (2 out of 2 bottles) (mecA positive), biotype 2 staph coagulase neg (1 out of 2 bottles), strep sanguinis (1 out of 2 bottles) BC 10/22 from port: staph coagulase neg (1 out of 2 bottles), ID: MRSE BC 10/23 from port: no growth day 1 BC 10/24 peripheral: pending MRSA nares positive Antibiotics: Vanc: 10/20 - P Ceftriaxone: 10/20 - 10/22 Cefepime: 10/20 Assessment: Patient Summary: Moshe Maddox is a 29 y.o. male with PMHx sickle cell disease, anemia, chronic pain, multiple DVTon apixaban, stroke (childhood), HCV, and HTN who presented to ED on 10/19 from outpatient pheresis center for a transfusion reaction. Pt had double lumen port placed on 10/04 with IR. He was hospitalized at from 10/04-10/14 for acutepain crisis. On 10/19, within 4-6 minutes of RBC transfusion, pt developed fever, chills, itching, lightheadedness, nausea, severe sharp back pain radiating from his lumbar region into his neck. The transfusion was stopped and pt received diphenhydramine along with home oxycodone and 250ml NS bolus g iven. He had been premedicated with acetaminophen and famotidine. Pt continued to have fever up to 101 and was brought to the ED. In the ED, pt was febrile to 102.4, tachy to 100s. WBC 32.9, Hgb 7, INR 1.4, LDH 1,369, CRP 61.1. CXR no acute findings. Pt received cefepime on 10/20, started on ceftriaxone and vanc since 10/20. Ceftriaxone discontinued on 10/22 at [facility] given that Vanc should cover both staph and strep. Peripheral BC on 10/19 grew strep mitis/oralis (1 out of 2 bottles). BC on 10/19 from port grew staph epidermidis (mecA positive) (2 out of 2 bottles) and strep sanguinis (1 out of 2bottles). XR panorex 10/22 shows no apparent dental caries or definitive evidence of periapical abscess. BC from 10/22 growing staph coagulase neg (1 out of 2 bottles). BC from port on 10/23 showed no growth on day 1. BC 10/24 peripheral pending. Echo shows no evidence of endocarditis. Pt is currently afebrile with leukocytosis. WBC were downtrending (30.2 -> 19.52 -> 13.29 ->12.51 -> 9.97). Increase today to 11.83. Pt understands standard of care would be to remove the port but would not like to have the port removed at this point. IR had planned for port removal 10/24 but pt does not want the port removed. Pt may be more open to removing port if alternate sites were offered. We would recommend delivering his abx through the port. We would recommend continuing Vancomycin, continuous infusion. We would recommend 14 days of IV vancomycin from date of negative blood culture. If BC from 10/23 has no growth, ourend date would be 11/05. Pt should follow up outpatient with Dr. Dubon 11/06 at 9 AM. OPAT evaluated the patient: standard enrollment, he is willing to do continuous if needed. ID Problem List: #CLABSI #Strep bacteremia #MRSE bacteremia #sickle cell acute pain crisis #hepatitis C Recommendations: - Ideally, we would recommend removing the port. Pt understands standard of care would be to removethe port but would not like to have the port removed at this point. If the port is going to remain,we would recommend delivering abx through it. - Continue Vancomycin, administer through port, continuous infusion - Follow blood cultures from 10/23 and 10/24 - We would recommend 14 days of IV vancomycin from date of negative blood culture. If BC from 10/23 has no growth, our end date will be 11/05. - Follow up with ID outpatient, Kike Prado/ Dr. Dubon 11/06 at 9 AM @ [facility] - Trend CBC w/diff, CRP, CMP, BMP to monitor for toxicity and ensure appropriate response to treatment - Plan of care and recommendations discussed with patient's primary team. Thank you for allowing us to participate in this patient's care. GEN ID will continue to follow. Shawna Zarate MD PGY1 History, assessment, and plan discussed with ID attending [1] Current Facility-Administered Medications Medication Dose Route Frequency Provider Last Rate Last Admin acetaminophen (Tylenol) tablet 650 mg 650 mg Oral q8h PRN Malik Trent, [employer] 650 mg at 10/24/24 1553 [Held by provider] apixaban (Eliquis) tablet 5 mg 5 mg Oral BID Esha Duarte MD 5 mg at 122 bisacodyl (Dulcolax) EC tablet 10 mg 10 mg Oral Daily PRN Malik Trent, [employer] diclofenac (Voltaren) 1 % topical gel 4 g 4 g Topical 4x daily PRN Malik Trent, [employer] WORK[employer] diphenhydrAMINE (Benadryl) injection 50 mg 50 mg Intravenous q4h PRN Michael Andrade MD 50 mg at 10/25/24 0701 folic acid (Folvite) tablet 1 mg 1 mg Oral Daily Malik Trent APRN 1 mg at 10/25/24 0804 HYDROmorphone (Dilaudid) injection 2 mg 2 mg Intravenous q2h PRN Michael Andrade MD 2 mg at 10/25/24 0915 hydroxyurea (Hydrea) capsule 500 mg 500 mg Oral BID Malik Trent APRN 500 mg at 10/25/24 0807 lactated Ringer's infusion 150 mL/hr Intravenous Continuous Michael Andrade MD 150 mL/hr at 10/25/24 0245 150 mL/hr at 10/25/24 0245 methocarbamol (Robaxin) tablet 750 mg 750 mg Oral 4x daily PRN Malik Trent APRN 750 mg at 10/24/24 1458 mupirocin (Bactroban) 2 % ointment 1 Application 1 Application Each Nostril BID Michael Andrade MD 1 Application at 10/22/24 205 oxyCODONE (Roxicodone) immediate release tablet 30 mg 30 mg Oral q4h PRN Saw Solano MD 30 mg at 10/25/24 0804 polyethylene glycol (Miralax) packet 17 g 17 g Oral Daily PRN Malik Trent APRN senna (Senokot) tablet 8.6 mg 1 tablet Oral Daily Malik Trent APRN 8.6 mg at 10/25/24 0804 sodium chloride 0.9 % flush 10 mL 10 mL Intravenous q12h Malik Trent APRN 10 mL at 10/24/24 0839 And sodium chloride 0.9 % flush 10 mL 10 mL Intravenous PRN Malik Trent APRN Vancomycin HCl in NaCl (Vancocin) IVPB 1,000 mg 1,000 mg Intravenous q8h Michael Andrade MD 1,000 mg at 10/25/24 0807 Facility-Administered Medications Ordered in Other Encounters Medication Dose Route Frequency Provider Last Rate Last Admin acetaminophen (Tylenol) tablet 650 mg 650 mg Oral Once PRN Parth Jaquez MD alteplase (Cathflo Activase) injection 2 mg 2 mg Intracatheter PRN Parth Jaquez MD calcium carbonate (Tums) chewable tablet 2,000 mg 2,000 mg Oral 4x daily PRN Parth Jaquez MD diphenhydrAMINE (Benadryl) injection 50 mg 50 mg Intravenous Once PRN Parth Jaquez MD diphenhydrAMINE (Benadryl) tablet 25 mg 25 mg Oral Once PRN Parth Jaquez MD diphenhydrAMINE (Benadryl) tablet 50 mg 50 mg Oral Once PRN Parth Jaquez MD EPINEPHrine (Adrenalin) 1 MG/ML injection 0.1 mg 0.1 mg Intravenous Once PRN Parth Jaquez MD EPINEPHrine (Adrenalin) 1 MG/ML injection 0.3 mg 0.3 mg Intramuscular Once PRN Parth Jaquez MD famotidine (Pepcid) tablet 20 mg 20 mg Oral Daily PRN Parth Jaquez MD famotidine PF (Pepcid) injection 20 mg 20 mg Intravenous Once PRN Parth Jaquez MD methylPREDNISolone sodium succinate (PF) (SOLU-Medrol) injection 125 mg 125 mg Intravenous Once Parth Jaquez MD ondansetron (Zofran) tablet 8 mg 8 mg Oral q8h PRN Parth Jaquez MD sodium chloride 0.9 % bolus 250 mL 250 mL Intravenous Once Parth Jaquez MD sodium citrate anticoagulant 4 % flush 3 mL 3 mL Intracatheter PRN Parth Jaquez MD Cosigned by Jacqueline Dubon MD at 10/26/2024 1:06 AM EDT Associated attestation - Jacqueline Dubon MD - 10/26/2024 1:06 AM EDT I saw and evaluated the patient with the resident/fellow. I discussed the case with the resident/fellow and agree with the findings and plan as documented. Discussed plan with patient and he is in agreement to use continous infusion to try to help with treating through this port . He is in better spirits today. * Progress Notes - Saw Solano MD - 10/25/2024 6:55 AM EDT Subjective Moshe Maddox is a 29 y.o. 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 Patient premedicated prior to initiation of 1st unit for exchange with acetaminophen and famotidine. Patient reports within 4-6 minutes after starting the acute onset of chills, palpitations, diffuseitching, and severe sharp LBP radiating up into his neck .Transfusion was stopped and diphenhydramine along with home oxycodone and 250ml NS bolus given. Symptoms persisted with 9/10 back pain and temp up to 101F, thus brought to ER for evaluation. Febrile in ED to 102.4F, tachy 100's, other VSS. Labs pertinent for WBC 32.9, Hgb stable at 7, retic count 227.3, INR 1.4, LDH 1,369. CXR no acute findings. Transfusion reaction and BCX collected. Hem advised admit for pain control and further infectious work-up. 10/20/2024: No acute events overnight. 10/21/2024: No acute events overnight. 10/22/2024: No acute events overnight. As per ID, Ideally, we would recommend removing the port. Ptunderstands standard of care would be to remove the port but would not like to have the port removed at this point. If the port is going to remain, we would recommend delivering abx through it. If ptcontinues to be bacteremic, then the port should be removed. DC Rocephin ceftriaxone, continue Vancomycin. Echocardiogram. Panorex shows Evaluation of the central structures are significantly limitedby motion. Within limits of the motion degraded study, there is no apparent dental caries or definite evidence of periapical abscess. 10/23/2024: No adverse events noted overnight. Echocardiogram is still pending. Pt is adamant aboutnot having his port pulled. He is an extremely difficult stick. Patient states that he is will not consent to having the port removed even for a few days. He notes that he has NO veins and Vascular access has a tough time getting blood or an IV even with US guidance. Will attempt to get Blood Cultures tomorrow AM. At around 14 18 was notified by microbiology that the patient was growing Gram-positive cocci in clusters from the blood yesterday drawn at 5:18 a.m. infectious disease notified. Spoke with the patient who was very distraught feels he is not being treated adequately concerned about leaving against medical advice. Explained to the patient regarding the probability stroke myocardialinfarction and other events in the case patient chooses against medical advice. Patient understands. He is alert and oriented able to walk does have the capacity his own medical decision. At this time we will continue with vancomycin Interventional Radiology has also been consulted to have the port removed. Two sets of blood cultures 1 from the central line in 1 from the periphery has been ordered to be done stat. 10/24/2024: No adverse events noted overnight. Vitals reviewed labs reviewed this morning. White blood cell count of 9.97 hemoglobin of 8.1 grams/deciliter hematocrit of 23.5% with a platelet count of 382. Differential reviewed, WNL. Labs reviewed showing a downtrending procalcitonin as well as a downtrending ESR and CRP. Blood culture taken from left arm as well as from central line. Discussed with the patient and with Infectious Disease, the patient is adamant about not removing the port. Cancelled port removal. IR made aware. At this time we will monitor the patient cautiously, hematology reached out in regards to having a exchange transfusion we will hold off until the patient is stable. Continue with IV infusion. Patient continues to refuse PORT exchange. Patient is A&O x3 understands the risks and benefit he has capacity to make medical decisions at his own volition. 10/25/2024: No adverse events noted overnight. Vitals reviewed, blood pressure this morning is 151/97. Labs reviewed showing a white blood cell count 11.83 hemoglobin 7.3 grams/deciliter hematocrit 21.2% with a platelet count of 400 absolute neutrophil count of 6.61 with a monocyte 0.98 with absolute basophil count of 0.11. Sed rate is 18. Pt is lying in bed, he is feeling a little bit better today. Review of Systems All other systems reviewed and are negative. Objective Vitals Temp: [36.7 ??C (98 ??F)-36.9 ??C (98.5 ??F)] 36.7 ??C (98 ??F) Heart Rate: [72-90] 88 BP: (135-171)/(82-120) 151/97 Physical Exam Constitutional: General: He is not in acute distress. Appearance: Normal appearance. He is normal weight. He is not ill-appearing or diaphoretic. Eyes: General: No scleral icterus. Cardiovascular: Rate and Rhythm: Normal rate. Pulmonary: Effort: Pulmonary effort is normal. No respiratory distress. Chest: Comments: Chest Wall has a port on the patient Right side of the chest. Abdominal: General: Abdomen is flat. There is no distension. Palpations: Abdomen is soft. Musculoskeletal: General: No swelling. Normal range of motion. Cervical back: Normal range of motion. Right lower leg: No edema. Left lower leg: No edema. Skin: General: Skin is warm. Capillary Refill: Capillary refill takes less than 2 seconds. Neurological: General: No focal deficit present. Mental Status: He is alert and oriented to person, place, and time. Mental status is at baseline. Assessment & Plan Blood transfusion reaction, initial encounter Moshe Maddox is a 29 y/o Male with a known medical history of Sickle Cell Disease and Hepatitis C presents after fever first noticed after blood transfusion. Bacteremia: Blood cultures (8/15) from Hand growing Streptococcus mitis/oralis group. Blood Cultures (8/15) from port growing Staphylococcus coagulase negative, MecA Positive. Panorex (8/18) showed: Evaluation of the central structures are significantly limited by motion. Within limits of the motion degraded study, there is no apparent dental caries or definite evidence of periapical abscess. Repeat blood cultures (8/18) are NGTD. Echocardiogram shows All cardiac valves were reasonably well interrogated with 2D imaging and/or Doppler assessment and no significant valve regurgitation or stenosis is seen. There is no definite echocardiographic evidence of endocarditis. Compared to the most recently available prior study, and allowing for differences in image quality and technique, there is no significant interval change noted. With left ventricular systolic function of 55-60%. Contacted Interventional Radiology, holding procedure to remove Port. At this time patient does not want his port removed. He has stated that is his only form of access that is he needs for the exchange transfusion. Thus he continues to refuse any IV line or IV placement. Infectious Disease made aware state itis patient's decision they can only inform him of their recommendation. Antibiotics (started 10/20/24)--Vanc (for Staph) thru the port Pharmacy to help DOSE, thank you Volume Resuscitation - LR 150mL/hr Hold Eliquis Sickle cell acute pain crisis & Sickle cell anemia: continue hydroxyurea 500mg BID, folic acid 1mg daily Pain control Hydromorphone 2mg IV q2h PRN diphenhydramine 50mg IV q4h PRN home oxycodone 30mg q4h PRN diclofenac gel 4g QID PRN acetaminophen 650mg q8h PRN, methocarbamol 750mg QID PRN, lidoderm patch daily Bowel Regimen: senna 8.6mg daily Hold off on any exchange transfusion until patient is stable. 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 HBV Surface Ag negative, Hep B core Total AB positive Hepatology follow-up at discharge Tobacco Use Disorder (Vapes) - he declined NRT FENGI: Regular DVT prophylaxis: Eliquis apixaban 5 mg PO BID GI prophylaxis: NONE Code status: Full Code Disposition: Home when stable. Saw Solano MD Internal Medicine Hospitalist [employer] Department of Internal Medicine Division [place] [address] Preferred method is secure chat or cell phone at [phone] Medically Ready for Discharge:Anticipated in 2-4 Days * Care Plan - Yojana Knight - 10/25/2024 12:32 AM EDT Problem: Adult Inpatient Plan of Care Goal: Plan of Care Review Outcome: Ongoing, Progressing Flowsheets Taken 10/24/2024 1526 by Rosalina Reid, RN Progress: improving Plan of Care Reviewed With: patient Taken 10/21/20249 by Sanjuana Cooper Outcome Evaluation: patient pain will be controlled during shift Goal: Patient-Specific Goal (Individualized) Outcome: Ongoing, Progressing Flowsheets (Taken 10/24/20241999) Patient/Family-Specific Goals (Include Timeframe): pain will be controlled this shift Individualized Care Needs: pain Anxieties, Fears or Concerns: pain control Goal: Absence of Hospital-Acquired Illness or Injury Outcome: Ongoing, Progressing Goal: Optimal Comfort and Wellbeing Outcome: Ongoing, Progressing * Progress Notes - Consuelo Jesus RN - 10/24/2024 4:58 PM EDT OPAT Enrollment Progress Note Patient: Moshe Maddox : 1995 Referring ID Team: General ID Indications for Use: Bacteremia: Source in comments Evaluation Start Date: 10/24/24 Evaluation Status: Complete Enrollment Status: Standard OPAT Appropriate Standard Enrollment Plan: Home Infusion Number of IV Medications: 1 (1 antibiotic; 1 infusion) Delivery Method: Elastomeric Continuous OPAT Nurse Navigator Eligibility and Assessment Note(Standard OPAT) Patient has met all established OPAT criteria to safely and successfully administer IV antibiotics at home via a central venous access device. It is the opinion of the ID team that the patient can bedischarged home to complete their IV antibiotic course. Patient Name: Moshe Maddox Primary ID Diagnosis: Bacteremia Referring ID Provider: Dr. Jacqueline Dubon IV Antimicrobial Therapy Plan: See OPAT MD intake note for final recommendations IV Access: Port Patient Specific Outpatient Circumstances: [address] [facility] [id number] Family Support: Extended Emergency Contact Information Primary Emergency Contact: Naina Watters Mobile Relation: Mother Secondary Emergency Contact: Mackenzie Brandt Mobile Relation: Significant Other Contact information: Moshe Maddox - [phone] Mackenzie Brandt (pt's s.o) - [phone] Naina Watters (pt's mom) - [phone] Outpatient services (including home infusion, home health, facility referral: See recent case management/social work note for finalization of services ID follow up appointment: Future Appointments Date Time Provider Department Center 10/25/2024 8:00 AM [facility]AIR 4 [facility] 11/23[facility]2024 1:30 PM [facility] 11/23/2024 2:00 PM [facility] Fitzgerald [facility] Patient Assessment I spoke with patient and patient's support, Mackenzie, over the speaker phone with patient at bedsideand completed an initial assessment with regards to OPAT eligibility. I explained the OPAT program and its service (IV antimicrobial management, lab monitoring, follow up appointments reminders, etc.) to the patient and support, Mackenzie. Patient states Mackenzie can help with IV antimicrobial administration at home. I have reached out to the patients' recognized , Mackenzie, via speaker phone with patient at the bedside, showed her the [facility] teaching mat via video and she confirmed she will be able toassist this patient in IV antimicrobial administration when the patient is discharged home. Transportation was also identified and confirmed with help of patient and patient's support, Mackenzie. Afterthis discussion, the patient appeared to be a good candidate for the OPAT program. Patient is not excited about the continuous infusion, if this ends up being the regimen for home. But will be okay if this the best option. Patient and support, Mackenzie were educated on , s/s of infection at the Port line insertion site, how to keep the Port line dressing dry while showering and how the Port line dressing must be changedeach week, weekly lab monitoring, and OPAT availability. Patient was given information about IV antimicrobials including possible administration options (continuous , IV push, number of infusions) and estimated duration of therapy. Patient and support, Mackenzie, verbalized understanding on assessment discussion stated above. Patient was provided the Port, Central, PICC line agreement and signed prior to ending the discussion by the nurse navigator. Patient agreed for the OPAT team to leave messages on their cell phone. OPAT program packet including contacts were left with patient in the event they would have questions or concerns. The OPAT nurse navigator will continue to follow the patient peripherally for any changes in the discharge plan. Please direct questions to myself, another member of the OPAT team, or the ID consulting provider via secure chat or staff messaging in [employer]. This note is not the final recommendations from the infectious diseases team, please refer to the most recent note for this information. Patient and family will need to be educated by the infusion company before being discharged home. Consuelo MARINO, RN 10/24/2024 * Care Plan - Rosalina Reid RN - 10/24/2024 3:27 PM EDT Problem: Adult Inpatient Plan of Care Goal: Patient-Specific Goal (Individualized) Outcome: Ongoing, Progressing Flowsheets (Taken 10/24/2024 0800) Patient/Family-Specific Goals (Include Timeframe): pt will continue IV Vancomycin for bactermia during shift on 10/24/24 Individualized Care Needs: antibiotics, pain management, safety Anxieties, Fears or Concerns: pain, port removal Goal: Absence of Hospital-Acquired Illness or Injury Outcome: Ongoing, Progressing Goal: Optimal Comfort and Wellbeing Outcome: Ongoing, Progressing Problem: Infection Goal: Absence of Infection Signs and Symptoms Outcome: Ongoing, Progressing Intervention: Prevent or Manage Infection Flowsheets (Taken 10/24/2024 1526) Infection Management: aseptic technique maintained Fever Reduction/Comfort Measures: lightweight bedding lightweight clothing Problem: Pain Acute Goal: Optimal Pain Control and Function Outcome: Ongoing, Progressing Intervention: Optimize Psychosocial Wellbeing Flowsheets (Taken 10/24/2024 1526) Supportive Measures: active listening utilized decision-making supported self-care encouraged relaxation techniques promoted Diversional Activities: smartphone television Spiritual Activities Assistance: hope instilled Intervention: Develop Pain Management Plan Flowsheets (Taken 10/24/2024 7028) Pain Management Interventions: medication (see MAR) * Significant Event - Edith Starkey APRN - 10/24/2024 9:55 AM EDT -Primary team reached out stating patient is not wanting to proceed with port removal today. -Will cancel port removal procedure today. -Please re-consult if/when port needs to be removed Edith Starkey APRN * Progress Notes - Shawna Zarate MD - 10/24/2024 7:46 AM EDT Images from the original note were not included. GENERAL INFECTIOUS DISEASE PROGRESS NOTE Attending: Saw Solano MD Subjective: NAEON. Pt reports that he does not have fever or chills. He reports fatigue, weakness, generalized pain but current pain regimen has been helping. Objective: Visit Vitals BP (!) 159/120 Pulse 72 Temp 36.9 ??C (98.4 ??F) Resp 18 Ht 1.829 m (6') Wt 78.6 kg (173 lb 4.5 oz) SpO2 95% BMI 23.50 kg/m?? Smoking Status Former BSA 2 m?? Physical Exam Constitutional: General: He is not in acute distress. HENT: Head: Normocephalic. Mouth/Throat: Mouth: Mucous membranes are moist. Pharynx: Oropharynx is clear. Eyes: Conjunctiva/sclera: Conjunctivae normal. Cardiovascular: Rate and Rhythm: Normal rate and regular rhythm. Pulmonary: Effort: Pulmonary effort is normal. Breath sounds: Normal breath sounds. Chest: Comments: Port on left side of chest Abdominal: General: Abdomen is flat. Palpations: Abdomen is soft. Tenderness: There is no abdominal tenderness. Musculoskeletal: General: Normal range of motion. Cervical back: Normal range of motion. No tenderness. Skin: General: Skin is warm and dry. Neurological: General: No focal deficit present. Mental Status: He is alert and oriented to person, place, and time. Psychiatric: Mood and Affect: Mood normal. Behavior: Behavior normal. Labs: CBC WBC 9.97 Hb 8.1 (L) Plt 382 (H) Hct 23.5 (L) ANC 5.77 BMP Na 138 Cl 104 BUN 6 (L) Glu 92 K 3.6 Co2 24 Cr 0.66 (L) Mg ??, Phos 4.6 (H) LFT AST 69 (H) AlkPhos 65 T Prot 7.6 ALK 34 Bili 1.8 (H) Alb ?? D.Bili ?? Results from last 7 days Lab Units 10/24/24 0629 10/23/24 0614 10/22/24 0516 CRP mg/L 29.6* 44.2* 47.2* Results from last 7 days Lab Units 10/24/24 0629 SED RATE mm/hr 17* Medications: Current Medications[1] Imaging/Studies: XR Panorex Narrative: CLINICAL INDICATION: Looking for source of Strep bacteremia TECHNIQUE: XR PANOREX COMPARISON: August 06, 2024 FINDINGS: Limited evaluation of the central structures due to motion. Within limits of the study, no apparentdental caries. Lucency along the distal roots may represent a component of odontogenic disease. No focal lucency to suggest periapical abscess. Dental amalgam. Impression: Evaluation of the central structures are significantly limited by motion. Within limits of the motion degraded study, there is no apparent dental caries or definite evidenceof periapical abscess. CRITICAL RESULT: No. COMMUNICATION: Per this written report. Drafted by Christiano Boston on 10/21/2024 3:42 PM Final report signed by Christiano Boston on 10/21/2024 3:45 PM Micro: Susceptibility data from last 90 days. Collected Specimen Info Organism Ampicillin Ampicillin/Sulbactam Aztreonam Cefazolin Cefepime Susceptibility Ceftriaxone Ciprofloxacin Ertapenem Erythromycin Gentamicin Levofloxacin Linezolid Meropenem Penicillin G 10/20/24 Swab from Nares and Venecai Rectal Methicillin-Resistant Staphylococcus aureus 10/19/24 Blood, Venous Streptococcus sanguinis S I Staphylococcus epidermidis Staphylococcus coagulase negative 10/19/24 Blood from Hand, Left Streptococcus mitis/oralis group S I 08/18/24 Blood, Venous Klebsiella pneumoniae ESBL, MDR (1) R R R R R R S S R S S Klebsiella pneumoniae ESBL, MDR (2) R R R R R R S S R S S 08/04/24 Blood from AC, Right Streptococcus mitis/oralis group (1) I S S Gemella haemolysans Streptococcus mitis/oralis group (2) 08/04/24 Blood from Bicep, left Streptococcus mitis/oralis group S I Rothia dentocariosa R R S S Collected Specimen Info Organism Piperacillin/Tazobactam Tetracycline Tobramycin Trimethoprim/Sulfamethoxazole Vancomycin 10/20/24 Swab from Nares and Venecia Rectal Methicillin-Resistant Staphylococcus aureus 10/19/24 Blood, Venous Streptococcus sanguinis S Staphylococcus epidermidis Staphylococcus coagulase negative 10/19/24 Blood from Hand, Left Streptococcus mitis/oralis group 08/18/24 Blood, Venous Klebsiella pneumoniae ESBL, MDR (1) R R R R Klebsiella pneumoniae ESBL, MDR (2) R R R R 08/04/24 Blood from AC, Right Streptococcus mitis/oralis group (1) Gemella haemolysans Streptococcus mitis/oralis group (2) 08/04/24 Blood from Bicep, left Streptococcus mitis/oralis group Rothia dentocariosa S Results Procedure Component Value Units Date/Time Blood Culture (Aerobic/Anaerobet Set) [[id number]] Collected: 10/22/24 0516 Order Status: Completed Specimen: Blood, Central Line Updated: 10/23/24 0701 Culture No growth at day 1 Blood Culture (Aerobic/Anaerobet Set) [[id number]] (Abnormal) (Susceptibility) Collected: 10/19/242103 Order Status: Completed Specimen: Blood, Venous Updated: 10/22/242115 Culture Staphylococcus coagulase negative Comment: Isolated from aerobic and anaerobic culture bottles. Isolated from one set of blood culture bottles only. If workup required, contact bacteriology at [phone]. This organism may be associated with a contaminated culture. Correlate clinically. The organism value for this result has been updated. These results have been appended to the previously preliminary verified report. Streptococcus sanguinis Comment: Isolated from anaerobic culture bottle only. The organism value for this result has been updated. These results have been appended to the previously preliminary verified report. Gram Stain Gram positive cocci in chains Comment: Organism seen in Anaerobic Blood Culture Bottle. Positivity Date and Time to Detection: 10/20/2024. at 00 Day(s) and 18 Hour(s). This is an appended report. These results have been appended to a previously preliminary verified report. Gram positive cocci in clusters Comment: Organism seen in Anaerobic Blood Culture Bottle. Positivity Date and Time to Detection: 10/20/2024. at 00 Day(s) and 18 Hour(s). This is an appended report. These results have been appended to a previously preliminary verified report. Gram positive cocci in clusters Comment: Organism seen in Aerobic Blood Culture Bottle. Positivity Date and Time to Detection: 10/20/2024 at 00 Day(s) and 18 Hour(s). This is an appended report. These results have been appended to a previously preliminary verified report. Susceptibility Streptococcus sanguinis ETEST (Preliminary) Ceftriaxone Susceptible Penicillin G Intermediate Additional Susceptibilities and/or Identification [[id number]] Collected: 10/22/241653 Order Status: Completed Specimen: Blood from Hand, Left Additional Susceptibilities and/or Identification [[id number]] Collected: 10/22/241653 Order Status: Completed Specimen: Blood, Venous Blood Culture (Aerobic/Anaerobet Set) [[id number]] (Abnormal) (Susceptibility) Collected: 10/19/241954 Order Status: Completed Specimen: Blood from Hand, Left Updated: 10/21/242009 Culture Streptococcus mitis/oralis group Comment: Isolated from aerobic culture bottle only. This isolate has been identified using the FDA Approved Blue Source CA System The organism value for this result has been updated. These results have been appended to the previously preliminary verified report. This is a corrected result. Previous organism was Streptococcus Alpha Hemolytic on 10/21/2024 at 0753 EDT. Gram Stain Gram positive cocci in chains Comment: Organism seen in Aerobic Blood Culture Bottle. Positivity Date and Time to Detection: 10/20/2024 at 00 Day(s) and 11 Hour(s). This is an appended report. These results have been appended to a previously preliminary verified report. Narrative: Low blood volume submitted, results may be compromised Susceptibility Streptococcus mitis/oralis group ETEST (Preliminary) Ceftriaxone Susceptible Penicillin G Intermediate Multi Drug Resistance Test [[id number]] (Abnormal) Collected: 10/20/24 0310 Order Status: Completed Specimen: Swab from Nares and Venecia Rectal Updated: 10/21/24 0848 Culture Methicillin-Resistant Staphylococcus aureus Comment: The organism value for this result has been updated. These results have been appended to the previously preliminary verified report. <null> has been updated to reportable. Narrative: This test was developed and its performance characteristics determined by the [facility]. Although the media is FDA-approved, it is not FDA-approved for all specimen types submitted. The FDA has determined that such clearance or approval is not necessary. This test is used for surveillance purposes. It should not be regarded as investigational or for research. The [facility] is certified under the ClinicalLaboratory Improvement Amendments of 1988 (CLIA-88) as qualified to perform high complexity clinical laboratory testing. Bacterial ID Gram Positive [[id number]] (Abnormal) Collected: 10/19/242103 Order Status: Completed Specimen: Blood, Venous Updated: 10/21/24 0806 Staphylococcus Result Detected Comment: From aerobic bottle only Assess if contaminant or clinically relevant pathogen. Consider clinical stability and immune status of patient. These results have been appended to a previously final verified report. Staphylococcus epidermidis Result Detected Comment: From aerobic bottle only Assess if contaminant or clinically relevant pathogen. Consider clinical stability and immune status of patient. These results have been appended to a previously final verified report. Streptococcus Result Detected Comment: From anaerobic bottle only MECA Result Detected Comment: From aerobic bottle only These results have been appended to a previously final verified report. Narrative: Analytes include: Bacillus cereus group, Bacillus subtilis group, Corynebacterium, Cutibacterium acnes (P acnes), Enterococcus, Enterococcus faecalis, Enterococcus faecium, Lactobacillus, Listeria, Listeria monocytogenes, Micrococcus, Staphylococcus, Staphylococcus aureus, Staphylococcus epidermidis, Stapylcoccus lugdunesis, Streptococcus, Streptococcus agalactiae, Streptococcus anginosus group, Streptococcus pneumoniae, Streptococcus pyogenes, Wharton gram negative target, Wharton Miguel target and mecA, mecC, Mine and vanB resistance genes. NOTE: A Not Detected result for result for a resistance gene does not indicate susceptibility to antimicrobials by mechanisms other than carrying the resistance genes detected by the BCID-GP assay. . WHARTON MIGUEL: Inclusive of Miguel albicans, Miguel glabrata, Pichia kudriavzevii (formerly Candidakrusei) and Miguel parapsilosis only. . WHARTON GRAM NEGATIVE: Includes but not limited to Acinetobacter, Bacteroides, Enterobacteriaceae, Neisseria, Pseudomonas, Serratia, Stenotrophomonas maltophilia. . Reference Value: Not detected for all analytes tested. Micro: Transfusion bag culture: no growth day 4 BC 10/19 from left hand: strep mitis/oralis (1 out of 2 bottles) BC 10/19 from port: staph epidermidis (2 out of 2 bottles) (mecA positive), biotype 2 staph coagulase neg (1 out of 2 bottles), strep sanguinis (1 out of 2 bottles) BC 10/22 from port: staph coagulase neg (1 out of 2 bottles) BC 10/23 from port: pending BC 10/24 from port: pending MRSA nares positive Antibiotics: Vanc: 10/20 - P Ceftriaxone: 10/20 - 10/22 Cefepime: 10/20 Assessment: Patient Summary: Moshe Maddox is a 29 y.o. male with PMHx sickle cell disease, anemia, chronic pain, multiple DVTon apixaban, stroke (childhood), HCV, and HTN who presented to ED on 10/19 from outpatient pheresis center for a transfusion reaction. Pt had double lumen port placed on 10/04 with IR. He was hospitalized at from 10/04-10/14 for acutepain crisis. On 10/19, within 4-6 minutes of RBC transfusion, pt developed fever, chills, itching, lightheadedness, nausea, severe sharp back pain radiating from his lumbar region into his neck. The transfusion was stopped and pt received diphenhydramine along with home oxycodone and 250ml NS bolus g iven. He had been premedicated with acetaminophen and famotidine. Pt continued to have fever up to 101 and was brought to the ED. In the ED, pt was febrile to 102.4, tachy to 100s. WBC 32.9, Hgb 7, INR 1.4, LDH 1,369, CRP 61.1. CXR no acute findings. Pt received cefepime on 10/20, started on ceftriaxone and vanc since 10/20. Ceftriaxone discontinued on 10/22 at ID rec given that Vanc should cover both staph and strep. Peripheral BC on 10/19 grew strep mitis/oralis (1 out of 2 bottles). BC on 10/19 from port grew staph epidermidis (mecA positive) (2 out of 2 bottles) and strep sanguinis (1 out of 2bottles). XR panorex 10/22 shows no apparent dental caries or definitive evidence of periapical abscess. BC from 10/22 growing staph coagulase neg (1 out of 2 bottles). BC from port on 10/23 and 10/24 pending. Pt is currently afebrile with leukocytosis. Low grade temp to 99.2 yesterday PM. WBC downtrending (30.2 -> 19.52 -> 13.29 ->12.51) -> 9.97). Pt understands standard of care would be to remove the port but would not like to have the port removed at this point. IR had planned for port removal 10/24 but pt does not want the port removed. Pt may be more open to removing port if alternate sites were offered. We would recommend delivering his abx through the port. We would recommend continuing Vancomycin, could consider continuous infusion. Echo shows no evidence of endocarditis. ID Problem List: #CLABSI #Strep bacteremia #Staph bacteremia #sickle cell acute pain crisis #hepatitis C Recommendations: - Ideally, we would recommend removing the port. Pt understands standard of care would be to removethe port but would not like to have the port removed at this point. If the port is going to remain,we would recommend delivering abx through it. - Continue Vancomycin, administer through port, consider continuous infusion - Follow blood cultures - Trend CBC w/diff, CRP, CMP, BMP to monitor for toxicity and ensure appropriate response to treatment - Plan of care and recommendations discussed with patient's primary team. Thank you for allowing us to participate in this patient's care. GEN ID will continue to follow. Shawna Zarate MD PGY1 History, assessment, and plan discussed with ID attending [1] Current Facility-Administered Medications Medication Dose Route Frequency Provider Last Rate Last Admin acetaminophen (Tylenol) tablet 650 mg 650 mg Oral q8h PRN Malik Trent, [employer] [Held by provider] apixaban (Eliquis) tablet 5 mg 5 mg Oral BID Malik Trent, [employer] 5 mg at 10/23/24 0910 bisacodyl (Dulcolax) EC tablet 10 mg 10 mg Oral Daily PRN Malik Trent B, [employer] diclofenac (Voltaren) 1 % topical gel 4 g 4 g Topical 4x daily PRN Malik Trent, [employer] diphenhydrAMINE (Benadryl) injection 50 mg 50 mg Intravenous q4h PRN Michael Andrade MD 50 mg at 10/24/24 0625 folic acid (Folvite) tablet 1 mg 1 mg Oral Daily Malik Trent, [employer] 1 mg at 10/23/24 0910 HYDROmorphone (Dilaudid) injection 2 mg 2 mg Intravenous q2h PRN Michael Andrade MD 2 mg at 10/24/24 0625 hydroxyurea (Hydrea) capsule 500 mg 500 mg Oral BID Malik Trent APRN 500 mg at 10/23/24 2153 lactated Ringer's infusion 150 mL/hr Intravenous Continuous Michael Andrade MD 150 mL/hr at 10/24/24 0631 150 mL/hr at 10/24/24 0631 methocarbamol (Robaxin) tablet 750 mg 750 mg Oral 4x daily PRN Malik Trent APRN 750 mg at 10/22/24 1448 mupirocin (Bactroban) 2 % ointment 1 Application 1 Application Each Nostril BID Michael Andrade MD 1 Application at 10/22/24 205 oxyCODONE (Roxicodone) immediate release tablet 30 mg 30 mg Oral q4h PRN Saw Solano MD 30 mg at 10/24/24 0316 polyethylene glycol (Miralax) packet 17 g 17 g Oral Daily PRN Malik Trent APRN senna (Senokot) tablet 8.6 mg 1 tablet Oral Daily Malik Trent APRN 8.6 mg at 10/23/24 0910 sodium chloride 0.9 % flush 10 mL 10 mL Intravenous q12h Malik Trent APRN 10 mL at 10/23/24 1125 And sodium chloride 0.9 % flush 10 mL 10 mL Intravenous PRN Malik Trent APRN Vancomycin HCl in NaCl (Vancocin) IVPB 1,000 mg 1,000 mg Intravenous q8h Michael Andrade MD 1,000 mg at 10/24/24 0001 Facility-Administered Medications Ordered in Other Encounters Medication Dose Route Frequency Provider Last Rate Last Admin acetaminophen (Tylenol) tablet 650 mg 650 mg Oral Once PRN Parth Jaquez MD alteplase (Cathflo Activase) injection 2 mg 2 mg Intracatheter PRN Parth Jaquez MD calcium carbonate (Tums) chewable tablet 2,000 mg 2,000 mg Oral 4x daily PRN Parth Jaquez MD diphenhydrAMINE (Benadryl) injection 50 mg 50 mg Intravenous Once PRN Parth Jaquez MD diphenhydrAMINE (Benadryl) tablet 25 mg 25 mg Oral Once PRN Parth Jaquez MD diphenhydrAMINE (Benadryl) tablet 50 mg 50 mg Oral Once PRN Parth Jaquez MD EPINEPHrine (Adrenalin) 1 MG/ML injection 0.1 mg 0.1 mg Intravenous Once PRN Parth Jaquez MD EPINEPHrine (Adrenalin) 1 MG/ML injection 0.3 mg 0.3 mg Intramuscular Once PRN Parth Jaquez MD famotidine (Pepcid) tablet 20 mg 20 mg Oral Daily PRN Parth Jaquez MD famotidine PF (Pepcid) injection 20 mg 20 mg Intravenous Once PRN Parth Jaquez MD methylPREDNISolone sodium succinate (PF) (SOLU-Medrol) injection 125 mg 125 mg Intravenous Once Parth Jaquez MD ondansetron (Zofran) tablet 8 mg 8 mg Oral q8h PRN Parth Jaquez MD sodium chloride 0.9 % bolus 250 mL 250 mL Intravenous Once Parth Jaquez MD sodium citrate anticoagulant 4 % flush 3 mL 3 mL Intracatheter PRN Parth Jaquez MD Cosigned by Jacqueline Dubon MD at 10/25/2024 1:28 AM EDT Associated attestation - Jacqueline Dubon MD - 10/25/2024 1:28 AM EDT I saw and evaluated the patient with the resident/fellow. I discussed the case with the resident/fellow and agree with the findings and plan as documented. Patient is engaged speaking with dietary. He is agreeable to continuous infusion Vancomycin. * Progress Notes - Saw Solano MD - 10/24/2024 7:08 AM EDT Abdoul Maddox is a 29 y.o. 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 Patient premedicated prior to initiation of 1st unit for exchange with acetaminophen and famotidine. Patient reports within 4-6 minutes after starting the acute onset of chills, palpitations, diffuseitching, and severe sharp LBP radiating up into his neck .Transfusion was stopped and diphenhydramine along with home oxycodone and 250ml NS bolus given. Symptoms persisted with 9/10 back pain and temp up to 101F, thus brought to ER for evaluation. Febrile in ED to 102.4F, tachy 100's, other VSS. Labs pertinent for WBC 32.9, Hgb stable at 7, retic count 227.3, INR 1.4, LDH 1,369. CXR no acute findings. Transfusion reaction and BCX collected. Hem advised admit for pain control and further infectious work-up. 10/20/2024: No acute events overnight. 10/21/2024: No acute events overnight. 10/22/2024: No acute events overnight. As per ID, Ideally, we would recommend removing the port. Ptunderstands standard of care would be to remove the port but would not like to have the port removed at this point. If the port is going to remain, we would recommend delivering abx through it. If ptcontinues to be bacteremic, then the port should be removed. DC Rocephin ceftriaxone, continue Vancomycin. Echocardiogram. Panorex shows Evaluation of the central structures are significantly limitedby motion. Within limits of the motion degraded study, there is no apparent dental caries or definite evidence of periapical abscess. 10/23/2024: No adverse events noted overnight. Echocardiogram is still pending. Pt is adamant aboutnot having his port pulled. He is an extremely difficult stick. Patient states that he is will not consent to having the port removed even for a few days. He notes that he has NO veins and Vascular access has a tough time getting blood or an IV even with US guidance. Will attempt to get Blood Cultures tomorrow AM. At around 14 18 was notified by microbiology that the patient was growing Gram-positive cocci in clusters from the blood yesterday drawn at 5:18 a.m. infectious disease notified. Spoke with the patient who was very distraught feels he is not being treated adequately concerned about leaving against medical advice. Explained to the patient regarding the probability stroke myocardialinfarction and other events in the case patient chooses against medical advice. Patient understands. He is alert and oriented able to walk does have the capacity his own medical decision. At this time we will continue with vancomycin Interventional Radiology has also been consulted to have the port removed. Two sets of blood cultures 1 from the central line in 1 from the periphery has been ordered to be done stat. 10/24/2024: No adverse events noted overnight. Vitals reviewed labs reviewed this morning. White blood cell count of 9.97 hemoglobin of 8.1 grams/deciliter hematocrit of 23.5% with a platelet count of 382. Differential reviewed, WNL. Labs reviewed showing a downtrending procalcitonin as well as a downtrending ESR and CRP. Blood culture taken from left arm as well as from central line. Discussed with the patient and with Infectious Disease, the patient is adamant about not removing the port. Cancelled port removal. IR made aware. At this time we will monitor the patient cautiously, hematology reached out in regards to having a exchange transfusion we will hold off until the patient is stable. Continue with IV infusion. Patient continues to refuse PORT exchange. Patient is A&O x3 understands the risks and benefit he has capacity to make medical decisions at his own volition. Review of Systems All other systems reviewed and are negative. Objective Vitals Temp: [36.3 ??C (97.3 ??F)-36.9 ??C (98.5 ??F)] 36.3 ??C (97.3 ??F) Heart Rate: [89-107] 107 Resp: [18-20] 18 BP: (131-166)/(89-116) 165/98 Physical Exam Constitutional: General: He is not in acute distress. Appearance: Normal appearance. He is normal weight. He is not ill-appearing or diaphoretic. Eyes: General: No scleral icterus. Cardiovascular: Rate and Rhythm: Normal rate. Pulmonary: Effort: Pulmonary effort is normal. No respiratory distress. Abdominal: General: Abdomen is flat. There is no distension. Palpations: Abdomen is soft. Musculoskeletal: General: No swelling. Normal range of motion. Cervical back: Normal range of motion. Right lower leg: No edema. Left lower leg: No edema. Skin: General: Skin is warm. Capillary Refill: Capillary refill takes less than 2 seconds. Neurological: General: No focal deficit present. Mental Status: He is alert and oriented to person, place, and time. Mental status is at baseline. Assessment & Plan Blood transfusion reaction, initial encounter Moshe Maddox is a 29 y/o Male with a known medical history of Sickle Cell Disease and Hepatitis C presents after fever first noticed after blood transfusion. Bacteremia: Blood cultures (/15) from Hand growing Streptococcus mitis/oralis group. Blood Cultures (8/15) from port growing Staphylococcus coagulase negative, MecA Positive. Panorex (10/22) showed: Evaluation of the central structures are significantly limited by motion. Within limits of the motion degraded study, there is no apparent dental caries or definite evidence of periapical abscess. Repeat blood cultures (/) are NGTD. Echocardiogram shows All cardiac valves were reasonably well interrogated with 2D imaging and/or Doppler assessment and no significant valve regurgitation or stenosis is seen. There is no definite echocardiographic evidence of endocarditis. Compared to the most recently available prior study, and allowing for differences in image quality and technique, there is no significant interval change noted. With left ventricular systolic function of 55-60%. Contacted Interventional Radiology, holding procedure to remove Port. At this time patient does not want his port removed. He has stated that is his only form of access that is he needs for the exchange transfusion. Thus he continues to refuse any IV line or IV placement. Infectious Disease made aware state itis patient's decision they can only inform him of their recommendation. antibiotics (started 10/20/24) Vanc (for Staph) thru the port Volume Resuscitation - LR 150mL/hr Hold Eliquis Sickle cell acute pain crisis & Sickle cell anemia: continue hydroxyurea 500mg BID, folic acid 1mg daily Pain control Hydromorphone 2mg IV q2h PRN diphenhydramine 50mg IV q4h PRN home oxycodone 30mg q4h PRN diclofenac gel 4g QID PRN acetaminophen 650mg q8h PRN, methocarbamol 750mg QID PRN, lidoderm patch daily Bowel Regimen: senna 8.6mg daily Hold off on any exchange transfusion until patient is stable. 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 HBV Surface Ag negative, Hep B core Total AB positive Hepatology follow-up at discharge Tobacco Use Disorder (Vapes) - he declined NRT FENGI: Regular DVT prophylaxis: Hold Eliquis apixaban 5 mg PO BID GI prophylaxis: NONE Code status: Full Code Disposition: Home when stable. Saw Solano MD Internal Medicine Hospitalist [employer] payer Department of Internal Medicine Division [place] [address] Preferred method is secure chat or cell phone at [phone] Medically Ready for Discharge:Anticipated in 2-4 Days * Care Plan - Yojana Knight - 10/24/2024 3:49 AM EDT Problem: Adult Inpatient Plan of Care Goal: Plan of Care Review Outcome: Ongoing, Progressing Flowsheets Taken 10/21/20242238 by Sanjuana Cooper Outcome Evaluation: patient pain will be controlled during shift Taken 10/21/20242237 by Sanjuana Cooper Progress: no change Plan of Care Reviewed With: patient Goal: Patient-Specific Goal (Individualized) Outcome: Ongoing, Progressing Flowsheets (Taken 10/23/20241999) Patient/Family-Specific Goals (Include Timeframe): pt will remain free from harm this shift Individualized Care Needs: safety Anxieties, Fears or Concerns: none stated Goal: Absence of Hospital-Acquired Illness or Injury Outcome: Ongoing, Progressing Goal: Optimal Comfort and Wellbeing Outcome: Ongoing, Progressing * Care Plan - Tash Fox RN - 10/23/2024 6:20 PM EDT Problem: Adult Inpatient Plan of Care Goal: Plan of Care Review Outcome: Ongoing, Progressing Flowsheets Taken 10/21/20242238 by Sanjuana Cooper Outcome Evaluation: patient pain will be controlled during shift Taken 10/21/20248 by Sanjuana Cooper Progress: no change Plan of Care Reviewed With: patient Goal: Patient-Specific Goal (Individualized) Outcome: Ongoing, Progressing Flowsheets (Taken 10/23/2024 1600) Patient/Family-Specific Goals (Include Timeframe): Pt will remain free from falls throughout entireshift Individualized Care Needs: Safety Anxieties, Fears or Concerns: none stated Goal: Absence of Hospital-Acquired Illness or Injury Outcome: Ongoing, Progressing Goal: Optimal Comfort and Wellbeing Outcome: Ongoing, Progressing Problem: Infection Goal: Absence of Infection Signs and Symptoms Outcome: Ongoing, Progressing Intervention: Prevent or Manage Infection Flowsheets Taken 10/23/2024 1600 by Tash Fox RN Isolation Precautions: precautions maintained contact Taken 10/21/2024 1112 by Marcia Cobos RN Infection Management: aseptic technique maintained Fever Reduction/Comfort Measures: lightweight clothing lightweight bedding Problem: Pain Acute Goal: Optimal Pain Control and Function Outcome: Ongoing, Progressing Intervention: Optimize Psychosocial Wellbeing Flowsheets (Taken 10/21/2024 1112 by Marcia Cobos RN) Supportive Measures: self-care encouraged self-reflection promoted Diversional Activities: smartphone television Intervention: Develop Pain Management Plan Flowsheets (Taken 10/23/2024 1650) Pain Management Interventions: medication (see MAR) pillow support provided * Consults - Jacquelyn Rendon APRN, DNP - 10/23/2024 3:48 PM EDTAssociated Order(s): IP CONSULT TO INTERVENTIONAL RADIOLOGY 10/23/24 Patient: Moshe Maddox Date of : 1995/29 y.o. Requesting Service: Saw Solano MD Chief Complaint: Transfusion reaction Reason for Consult: Bacteremia, port removal History of Present Illness: Moshe Maddox is a 29 y.o. male with a past medical history of sicklecell disease, anemia, chronic pain, multiple DVTs on apixaban, childhood stroke, HCV and hypertension who presented on 10/19 from outpatient pheresis with concern for transfusion reaction. He underwent dual lumen vortex port placement for pheresis on 10/04/2024. Blood cultures 10/19/2024 positive forstrep mitis/oralis group, staph epi and strep sanguinis. Repeat blood cultures yesterday remain positive for GPCs in clusters. He is being treated with IV vancomycin. VIR was consulted for port removal due to bacteremia. History and admission information obtained from chart review of primary and consulting teams notation, as well as speaking directly to consulting team. The following portions of the chart were reviewed this encounter and updated as appropriate: Review of Systems: Deferred Past Medical History Pertinent Negatives[1] Surgical History[2] Social History[3] Family History: Personally reviewed and noncontributory. Allergies[4] Objective: All laboratory, images, tracings, and vital sign data are personally reviewed unless otherwise noted. VITALS: Temp: [36.4 ??C (97.6 ??F)-37.4 ??C (99.3 ??F)] 36.9 ??C (98.5 ??F) Heart Rate: [90-100] 93 Resp: [15-25] 19 BP: (129-162)/(81-98) 131/89 Weight: 78 kg (172 lb) Body mass index is 23.5 kg/m??. I & O SUMMARY I/O last 3 completed shifts: In: 4839.2 (61.6 mL/kg) [P.O.:1320; I.V.:2557.5 (32.5 mL/kg); Blood:361.7; IV Piggyback:600] Out: 400 (5.1 mL/kg) [Urine:400 (0.1 mL/kg/hr)] Weight: 78.6 kg I/O this shift: In: 400 [P.O.:400] Out: - MEDICATIONS: Current Medications[5] LABS (PAST 18Labs in last 18 hours) CBC WBC 12.51 (H) Hb 7.5 (L) Plt 433 (H) Hct 22.2 (L) INR ?? PTT ?? Anti-Xa ?? BMP Na 138 Cl 107 BUN 7 Glu 104 (H) K 4.1 Co2 25 Cr 0.68 (L) Ca 8.2 (L) Mg 1.9 Phos 4.4 Lactate ?? LFT AST 74 (H) AlkPhos 68 T Prot 7.6 ALK 37 Bili 1.6 (H) Alb ?? D.Bili ?? HOURS) EXAM: Deferred Radiographics/Diagnostics: Imaging personally reviewed and reviewed with attending. === 08/01/24 === CT VENOGRAM CHEST - Narrative - CLINICAL INDICATION: Per this is best vasculature report placement TECHNIQUE: Multiple axial CT images were obtained from thoracic inlet through upper abdomen following administration of IV contrast, Omnipaque 350, 200 mL. Reformatted images of the abdomen and pelvis in the coronal and sagittal planes were generated from the axial data set to facilitate diagnostic accuracy. Total DLP (Dose-Length Product): 758.58 mGy.cm. Please note: The reported value represents the total of one or more individual components during the CT acquisition on this date and at this time, and as such, the same value may appear in more than one CT report depending on the interpreting/reporting physicians. COMPARISON: April 09, 2024. FINDINGS: Chest: Lymph Nodes and Mediastinum: Subcentimeter lower cervical and mediastinal lymph nodes are conspicuous in number. Anterior mediastinal soft tissue may represent residual thymus. Subcarinal and right infrahilar calcified lymph nodes. No suspicious thyroid findings. Cardiovascular: Right atrial dilatation. Enlargement of the main pulmonary artery suggests pulmonary hypertension. Normal caliber thoracic aorta with patent great vessels. The left vertebral artery arises directly from the aortic arch. Thoracic great vessels are patent. The bilateral internal jugular and subclavian veins are patent. Left upper extremity PICC coils in the left subclavian vein. Occlusion of the left brachiocephalic vein near the confluence (series 3 image 190). Calcification and eccentric filling defect in the superior vena cava may represent thrombus (series 3 image 264). Mildnarrowing of the SVC at the level of calcification, otherwise patent. Lungs and Pleura: Central airways are clear. Mild centrilobular emphysema. Bilateral lower lobe linear atelectasis or scarring. No airspace disease or consolidation. Trace right pleural effusion. Musculoskeletal and Body Wall: Diffuse bony sclerosis and endplate changes consistent with history of sickle cell disease. Upper Abdomen: No acute findings in the imaged upper abdomen. Redemonstration of splenic calcification - Impression - Left upper extremity PICC is coiled in the left subclavian and brachiocephalic vein. Occlusion of the left brachiocephalic vein near the confluence. Focal narrowing of the superior vena cava with peripheral calcification and eccentric filling defect, which may represent thrombus. CRITICAL RESULT: No. COMMUNICATION: Per this written report. Drafted by Yenny Knight MD on 08/16/2024 9:32 PM Final report signed by Yenny Knight MD on 08/16/2024 9:48 PM === 10/19/24 === XR PANOREX - Narrative - CLINICAL INDICATION: Looking for source of Strep bacteremia TECHNIQUE: XR PANOREX COMPARISON: August 06, 2024 FINDINGS: Limited evaluation of the central structures due to motion. Within limits of the study, no apparentdental caries. Lucency along the distal roots may represent a component of odontogenic disease. No focal lucency to suggest periapical abscess. Dental amalgam. - Impression - Evaluation of the central structures are significantly limited by motion. Within limits of the motion degraded study, there is no apparent dental caries or definite evidenceof periapical abscess. CRITICAL RESULT: No. COMMUNICATION: Per this written report. Drafted by Christiano Boston on 10/21/2024 3:42 PM Final report signed by Christiano Boston on 10/21/2024 3:45 PM Echo, Adult Transthoracic Complete Result Date: 08/09/2024 Left Ventricle: The left ventricle is normal size. There is normal left ventricular myocardial thickness and mass. No left ventricular mass or thrombus is seen. The LVEF is visually estimated at 55 -60%. The left ventricular filling pressure is normal. The left ventricular wall motion is normal. Right Ventricle: The right ventricle is mildly dilated. The right ventricular systolic function is normal. Right ventricular systolic pressure is normal (<35mmHg). Pericardium: No pericardial effusion. All cardiac valves were reasonably well interrogated with 2D imaging and/or Doppler assessment and no significant valve regurgitation or stenosis is seen. There is no definite echocardiographic tylor dence of endocarditis. There is no recent study available for direct baga-rg-tesp comparison. Assessment & Plan: Bacteremia Difficult IV access Sickle cell disease - Presented who presented on 10/19 from outpatient pheresis with concern for transfusion reaction - Dual lumen vortex port placement for pheresis on 10/04/2024 - Blood cultures 10/19/2024 positive for strep mitis/oralis group, staph epi and strep sanguinis - Repeat blood cultures yesterday remain positive for GPCs in clusters - He is being treated with IV vancomycin - VIR was consulted for port removal due to bacteremia - INR ??, Plt 433 (H) - VSS, Afebrile Multiple DVTs - On Eliquis, holding first dose tonight HCV Hypertension Chronic anemia Chronic pain - Management per primary team PLAN: - Will perform image guided port removal tomorrow - Hold Eliquis now - Will consent prior to procedure - NPO at 0000 - Primary team to place any specimen orders Case discussed with attending physician, Dr. Manning. I spent 38 minutes on this encounter; which involved review/interpretation of diagnostics and reports, obtaining and/or reviewing separately obtained history, communicating findings, reviewing labs/imaging, documentation in EMR and formulating subsequent treatment plan. Thank you for allowing us to participate in the care of this patient. 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 Bloodstream infection due to central venous catheter, initial encounter 08/25/2024 Collapsed vertebra, not elsewhere classified, thoracic region, initial encounter for fracture ([facility]) 08/14/2024 Epididymo-orchitis 04/26/2024 Hepatitis B Hepatitis C History of DVT (deep vein thrombosis) 11/24/2023 Hypertension Sickle cell anemia Streptococcal sepsis, unspecified ([facility]/HCC) 08/18/2024 Stroke ([facility]) [2] Past Surgical History: Procedure Laterality Date CHOLECYSTECTOMY INCISION AND DRAINAGE, SKIIN ABCESS N/A PORTACATH PLACEMENT multiple since removed TONSILLECTOMY W/ ADENOIDECTOMY [3] Social History Tobacco Use Smoking status: Former Current packs/day: 0.00 Average packs/day: 0.3 packs/day for 3.0 years (0.8 ttl pk-yrs) Types: Cigarettes Start date: 2012 Quit date: 2016 Years since quittin.6 Passive exposure: Past Smokeless tobacco: Never Vaping Use Vaping status: Never Used Substance Use Topics Alcohol use: Never Drug use: Never [4] Allergies Allergen Reactions Mushroom Extract Complex (Obsolete) Itching and Swelling Pt reports being allergic to all mushrooms Morphine Hives [5] Current Facility-Administered Medications: acetaminophen (Tylenol) tablet 650 mg, 650 mg, Oral, q8h PRN, Malik Trent B, [employer] [Held by provider] apixaban (Eliquis) tablet 5 mg, 5 mg, Oral, BID, Malik Trent B, [employer], 5 mg at 10/23/24 0910 bisacodyl (Dulcolax) EC tablet 10 mg, 10 mg, Oral, Daily PRN, Malik Trent, [employer] diclofenac (Voltaren) 1 % topical gel 4 g, 4 g, Topical, 4x daily PRN, Malik Trent B, [employer] diphenhydrAMINE (Benadryl) injection 50 mg, 50 mg, Intravenous, q4h PRN, Michael Andrade MD, 50 mg at 10/23/24 1328 folic acid (Folvite) tablet 1 mg, 1 mg, Oral, Daily, Malik Trent, [employer], 1 mg at 10/23/24 0910 HYDROmorphone (Dilaudid) injection 2 mg, 2 mg, Intravenous, q2h PRN, Michael Andrade MD, 2 mg at 10/23/24 1328 hydroxyurea (Hydrea) capsule 500 mg, 500 mg, Oral, BID, Malik Trent, [employer], 500 mg at 10/23/24 0910 lactated Ringer's infusion, 150 mL/hr, Intravenous, Continuous, Michael Andrade MD, Last Rate: 150 mL/hr at 10/23/24 1126, 150 mL/hr at 10/23/24 1126 methocarbamol (Robaxin) tablet 750 mg, 750 mg, Oral, 4x daily PRN, Malik Trent B, [employer], 750 mg at 10/22/24 1448 mupirocin (Bactroban) 2 % ointment 1 Application, 1 Application, Each Nostril, BID, Michael Andrade MD, 1 Application at 10/22/24 205 oxyCODONE (Roxicodone) immediate release tablet 30 mg, 30 mg, Oral, q4h PRN, Saw Solano MD, 30 mg at 10/23/24 141 polyethylene glycol (Miralax) packet 17 g, 17 g, Oral, Daily PRN, Malik Trent, [employer] senna (Senokot) tablet 8.6 mg, 1 tablet, Oral, Daily, Malik Trent, [employer], 8.6 mg at 10/23/24 0910 Insert peripheral IV, , , Once AND Saline lock IV, , , Once AND sodium chloride 0.9 % flush10 mL, 10 mL, Intravenous, q12h, 10 mL at 10/23/24 1125 AND sodium chloride 0.9 % flush 10 mL, 10 mL, Intravenous, PRN, Malik Trent B, [employer] Vancomycin HCl in NaCl (Vancocin) IVPB 1,000 mg, 1,000 mg, Intravenous, q8h, Michael Andrade MD, 1,000 mg at 10/23/24 0910 Facility-Administered Medications Ordered in Other Encounters: acetaminophen (Tylenol) tablet 650 mg, 650 mg, Oral, Once PRN, Parth Jaquez MD alteplase (Cathflo Activase) injection 2 mg, 2 mg, Intracatheter, PRN, Parth Jaquez MD calcium carbonate (Tums) chewable tablet 2,000 mg, 2,000 mg, Oral, 4x daily PRN, Parth Jaquez MD diphenhydrAMINE (Benadryl) injection 50 mg, 50 mg, Intravenous, Once PRN, Parth Jaquez MD diphenhydrAMINE (Benadryl) tablet 25 mg, 25 mg, Oral, Once PRN, Parth Jaquez MD diphenhydrAMINE (Benadryl) tablet 50 mg, 50 mg, Oral, Once PRN, Parth Jaquez MD EPINEPHrine (Adrenalin) 1 MG/ML injection 0.1 mg, 0.1 mg, Intravenous, Once PRN, Parth Jaquez MD EPINEPHrine (Adrenalin) 1 MG/ML injection 0.3 mg, 0.3 mg, Intramuscular, Once PRN, [place] Jaquez MD famotidine (Pepcid) tablet 20 mg, 20 mg, Oral, Daily PRN, Parth Jaquez MD famotidine PF (Pepcid) injection 20 mg, 20 mg, Intravenous, Once PRN, Parth Jaquez MD methylPREDNISolone sodium succinate (PF) (SOLU-Medrol) injection 125 mg, 125 mg, Intravenous, Once,Parth Jaquez MD ondansetron (Zofran) tablet 8 mg, 8 mg, Oral, q8h PRN, Parth Jaquez MD sodium chloride 0.9 % bolus 250 mL, 250 mL, Intravenous, Once, Parth Jaquez MD sodium citrate anticoagulant 4 % flush 3 mL, 3 mL, Intracatheter, PRN, Parth Jaquez MD * Query Clarification Note - Saw Solano MD - 10/23/2024 11:40 AM EDT Physician Clarification Please review the clinical findings and documentation below. After study, can you clarify a diagnosis that accounts for the cause of these systemic findings? [x] Sepsis due to CLABSI [] Local infection only [] Other condition (please specify) This documentation will become part of the patient's medical record. * Query Clarification Note - Saw Solano MD - 10/23/2024 11:40 AM EDT Physician Clarification Please review lab values below to identify a diagnosis that accounts for the abnormal lab values, if possible. Be sure to include POA status in your response. [x] Hypomagnesemia [] Abnormal lab values with no clinical significance [] Other condition, please specify This documentation will become part of the patient's medical record. * Progress Notes - Georgina Luna - 10/23/2024 9:30 AM EDT Case Management Adult Initial Progress Note [place] Maddox 29 y.o. male CSN: [id number] Admission: 10/19/2024 5:31 PM Primary Problem: Blood transfusion reaction, initial encounter Sanding Machine Operator reviewed chart and spoke with patient to complete this Initial Case Management Assessment. Patient verified information. PCP: Favian Sandy DO Emergency Contact: Extended Emergency Contact Information Primary Emergency Contact: Naina Watters Mobile Relation: Mother Insurance: Primary Visit Coverage Payer Plan Sponsor Code Group Number Group Name UHC MEDICAID [place] [place] Primary Visit Coverage Subscriber Subscriber ID Subscriber Name Subscriber N Subscriber Address [id number] [address] [id number] [address] [place] [id number] Patient information: Primary Caregiver: Self Support System: Immediate family Daily Living Activities: Functional Status: Independent Living Arrangements: Family (Lives with mother) Type of Residence: Private residence, Single Level (1 step to enter home.) [address] [place] [address] Current DME: Equipment Currently Used at Home: none Income Information: Income Source: Disabled Income/Expense Information: Expenses exceed income Current Resources Utilized: [employer] [place] Housing Circumstances-Z Codes: Housing Circumstances (select all that apply): Low Income (101-300% Federal Poverty Guidlines) - Z596 (Patient lives with mother, unable to complete FPG form at this time. Patient unsure of mother's income. Patient gets $644 SSDI, and $200 [employer] [place].) Anticipated Discharge Date: TBD Patient's Discharge Goal: Return home Assistance Available at Discharge: Mother Discharge Transport: Girlfriend or mother Follow Up Transport: Self Home Health / Home Infusion / Outpatient Dialysis Services: Denies Living Will/Advance Directive/Power of Blind Escort /Guardian: Have you reviewed your Advance Directive and is it valid for this stay?: No Advance Directive: Patient would not like information Information Provided on Healthcare Directives: No Pre-existing DNR/DNI Order: No Patient Requests Assistance: No Denies any LW or POA Additional Comments: CM met with patient at bedside. Went over role of CM, and completed initial assessment. POC discussed during daily Teams meeting. Per MD patient is not medically ready for discharge. Currently on IV ABX. Cultures pending, might need port changed. CM will continue to follow and assist with any d/c needs as they arise. Georgina Luna * Progress Notes - Shawna Zarate MD - 10/23/2024 7:46 AM EDT Images from the original note were not included. GENERAL INFECTIOUS DISEASE PROGRESS NOTE Attending: Saw Solano MD Subjective: NAEON. Pt reports that he had a couple episodes of chills and night sweats overnight. He has occasional chest pain. Reports fatigue, weakness, generalized pain but current pain regimen has been helping. Objective: Visit Vitals BP 129/85 (BP Location: Left arm, Patient Position: Lying) Pulse 90 Temp 36.8 ??C (98.3 ??F) (Oral) Resp 19 Ht 1.829 m (6') Wt 78.6 kg (173 lb 4.5 oz) SpO2 93% BMI 23.50 kg/m?? Smoking Status Former BSA 2 m?? Physical Exam Constitutional: General: He is not in acute distress. HENT: Head: Normocephalic. Mouth/Throat: Mouth: Mucous membranes are moist. Pharynx: Oropharynx is clear. Eyes: Conjunctiva/sclera: Conjunctivae normal. Cardiovascular: Rate and Rhythm: Normal rate and regular rhythm. Pulmonary: Effort: Pulmonary effort is normal. Breath sounds: Normal breath sounds. Chest: Comments: Port on left side of chest Abdominal: General: Abdomen is flat. Palpations: Abdomen is soft. Tenderness: There is no abdominal tenderness. Musculoskeletal: General: Normal range of motion. Cervical back: Normal range of motion. No tenderness. Skin: General: Skin is warm and dry. Neurological: General: No focal deficit present. Mental Status: He is alert and oriented to person, place, and time. Psychiatric: Mood and Affect: Mood normal. Behavior: Behavior normal. Labs: CBC WBC 12.51 (H) Hb 7.5 (L) Plt 433 (H) Hct 22.2 (L) ANC ?? BMP Na 138 Cl 107 BUN 7 Glu 104 (H) K 4.1 Co2 25 Cr 0.68 (L) Mg 1.9, Phos 4.4 LFT AST 74 (H) AlkPhos 68 T Prot 7.6 ALK 37 Bili 1.6 (H) Alb ?? D.Bili ?? Results from last 7 days Lab Units 10/23/24 0614 10/22/24 0516 10/21/24 0433 CRP mg/L 44.2* 47.2* 49.8* Medications: Current Medications[1] Imaging/Studies: XR Panorex Narrative: CLINICAL INDICATION: Looking for source of Strep bacteremia TECHNIQUE: XR PANOREX COMPARISON: August 06, 2024 FINDINGS: Limited evaluation of the central structures due to motion. Within limits of the study, no apparentdental caries. Lucency along the distal roots may represent a component of odontogenic disease. No focal lucency to suggest periapical abscess. Dental amalgam. Impression: Evaluation of the central structures are significantly limited by motion. Within limits of the motion degraded study, there is no apparent dental caries or definite evidenceof periapical abscess. CRITICAL RESULT: No. COMMUNICATION: Per this written report. Drafted by Christiano Boston on 10/21/2024 3:42 PM Final report signed by Christiano Boston on 10/21/2024 3:45 PM Micro: Susceptibility data from last 90 days. Collected Specimen Info Organism Ampicillin Ampicillin/Sulbactam Aztreonam Cefazolin Cefepime Susceptibility Ceftriaxone Ciprofloxacin Ertapenem Erythromycin Gentamicin Levofloxacin Linezolid Meropenem Penicillin G 10/20/24 Swab from Nares and Venecia Rectal Methicillin-Resistant Staphylococcus aureus 10/19/24 Blood, Venous Streptococcus sanguinis S I Staphylococcus coagulase negative 10/19/24 Blood from Hand, Left Streptococcus mitis/oralis group S I 08/18/24 Blood, Venous Klebsiella pneumoniae ESBL, MDR (1) R R R R R R S S R S S Klebsiella pneumoniae ESBL, MDR (2) R R R R R R S S R S S 08/04/24 Blood from AC, Right Streptococcus mitis/oralis group (1) I S S Gemella haemolysans Streptococcus mitis/oralis group (2) 08/04/24 Blood from Bicep, left Streptococcus mitis/oralis group S I Rothia dentocariosa R R S S Collected Specimen Info Organism Piperacillin/Tazobactam Tetracycline Tobramycin Trimethoprim/Sulfamethoxazole Vancomycin 10/20/24 Swab from Nares and Venecia Rectal Methicillin-Resistant Staphylococcus aureus 10/19/24 Blood, Venous Streptococcus sanguinis Staphylococcus coagulase negative 10/19/24 Blood from Hand, Left Streptococcus mitis/oralis group 08/18/24 Blood, Venous Klebsiella pneumoniae ESBL, MDR (1) R R R R Klebsiella pneumoniae ESBL, MDR (2) R R R R 08/04/24 Blood from AC, Right Streptococcus mitis/oralis group (1) Gemella haemolysans Streptococcus mitis/oralis group (2) 08/04/24 Blood from Bicep, left Streptococcus mitis/oralis group Rothia dentocariosa S Results Procedure Component Value Units Date/Time Blood Culture (Aerobic/Anaerobet Set) [[id number]] Collected: 10/22/24 0516 Order Status: Completed Specimen: Blood, Central Line Updated: 10/23/24 0701 Culture No growth at day 1 Blood Culture (Aerobic/Anaerobet Set) [[id number]] (Abnormal) (Susceptibility) Collected: 10/19/242103 Order Status: Completed Specimen: Blood, Venous Updated: 10/22/242115 Culture Staphylococcus coagulase negative Comment: Isolated from aerobic and anaerobic culture bottles. Isolated from one set of blood culture bottles only. If workup required, contact bacteriology at [phone]. This organism may be associated with a contaminated culture. Correlate clinically. The organism value for this result has been updated. These results have been appended to the previously preliminary verified report. Streptococcus sanguinis Comment: Isolated from anaerobic culture bottle only. The organism value for this result has been updated. These results have been appended to the previously preliminary verified report. Gram Stain Gram positive cocci in chains Comment: Organism seen in Anaerobic Blood Culture Bottle. Positivity Date and Time to Detection: 10/20/2024. at 00 Day(s) and 18 Hour(s). This is an appended report. These results have been appended to a previously preliminary verified report. Gram positive cocci in clusters Comment: Organism seen in Anaerobic Blood Culture Bottle. Positivity Date and Time to Detection: 10/20/2024. at 00 Day(s) and 18 Hour(s). This is an appended report. These results have been appended to a previously preliminary verified report. Gram positive cocci in clusters Comment: Organism seen in Aerobic Blood Culture Bottle. Positivity Date and Time to Detection: 10/20/2024 at 00 Day(s) and 18 Hour(s). This is an appended report. These results have been appended to a previously preliminary verified report. Susceptibility Streptococcus sanguinis ETEST (Preliminary) Ceftriaxone Susceptible Penicillin G Intermediate Additional Susceptibilities and/or Identification [[id number]] Collected: 10/22/241653 Order Status: Completed Specimen: Blood from Hand, Left Additional Susceptibilities and/or Identification [[id number]] Collected: 10/22/241653 Order Status: Completed Specimen: Blood, Venous Blood Culture (Aerobic/Anaerobet Set) [[id number]] (Abnormal) (Susceptibility) Collected: 10/19/241954 Order Status: Completed Specimen: Blood from Hand, Left Updated: 10/21/242009 Culture Streptococcus mitis/oralis group Comment: Isolated from aerobic culture bottle only. This isolate has been identified using the FDA Approved Highfive System The organism value for this result has been updated. These results have been appended to the previously preliminary verified report. This is a corrected result. Previous organism was Streptococcus Alpha Hemolytic on 10/21/2024 at 0753 EDT. Gram Stain Gram positive cocci in chains Comment: Organism seen in Aerobic Blood Culture Bottle. Positivity Date and Time to Detection: 10/20/2024 at 00 Day(s) and 11 Hour(s). This is an appended report. These results have been appended to a previously preliminary verified report. Narrative: Low blood volume submitted, results may be compromised Susceptibility Streptococcus mitis/oralis group ETEST (Preliminary) Ceftriaxone Susceptible Penicillin G Intermediate Multi Drug Resistance Test [[id number]] (Abnormal) Collected: 10/20/24 0310 Order Status: Completed Specimen: Swab from Nares and Venecia Rectal Updated: 10/21/24 0848 Culture Methicillin-Resistant Staphylococcus aureus Comment: The organism value for this result has been updated. These results have been appended to the previously preliminary verified report. <null> has been updated to reportable. Narrative: This test was developed and its performance characteristics determined by the [facility]. Although the media is FDA-approved, it is not FDA-approved for all specimen types submitted. The FDA has determined that such clearance or approval is not necessary. This test is used for surveillance purposes. It should not be regarded as investigational or for research. The [facility] is certified under the ClinicalLaboratory Improvement Amendments of 1988 (CLIA-88) as qualified to perform high complexity clinical laboratory testing. Bacterial ID Gram Positive [[id number]] (Abnormal) Collected: 10/19/242103 Order Status: Completed Specimen: Blood, Venous Updated: 10/21/24 0806 Staphylococcus Result Detected Comment: From aerobic bottle only Assess if contaminant or clinically relevant pathogen. Consider clinical stability and immune status of patient. These results have been appended to a previously final verified report. Staphylococcus epidermidis Result Detected Comment: From aerobic bottle only Assess if contaminant or clinically relevant pathogen. Consider clinical stability and immune status of patient. These results have been appended to a previously final verified report. Streptococcus Result Detected Comment: From anaerobic bottle only MECA Result Detected Comment: From aerobic bottle only These results have been appended to a previously final verified report. Narrative: Analytes include: Bacillus cereus group, Bacillus subtilis group, Corynebacterium, Cutibacterium acnes (P acnes), Enterococcus, Enterococcus faecalis, Enterococcus faecium, Lactobacillus, Listeria, Listeria monocytogenes, Micrococcus, Staphylococcus, Staphylococcus aureus, Staphylococcus epidermidis, Stapylcoccus lugdunesis, Streptococcus, Streptococcus agalactiae, Streptococcus anginosus group, Streptococcus pneumoniae, Streptococcus pyogenes, Wharton gram negative target, Wharton Miguel target and mecA, mecC, Mine and vanB resistance genes. NOTE: A Not Detected result for result for a resistance gene does not indicate susceptibility to antimicrobials by mechanisms other than carrying the resistance genes detected by the BCID-GP assay. . WHARTON MIGUEL: Inclusive of Miguel albicans, Miguel glabrata, Pichia kudriavzevii (formerly Candidakrusei) and Miguel parapsilosis only. . WHARTON GRAM NEGATIVE: Includes but not limited to Acinetobacter, Bacteroides, Enterobacteriaceae, Neisseria, Pseudomonas, Serratia, Stenotrophomonas maltophilia. . Reference Value: Not detected for all analytes tested. Micro: Transfusion bag culture: no growth day 4 BC 10/19 from left hand: strep mitis/oralis (1 out of 2 bottles) BC 10/19 from port: staph epidermidis (2 out of 2 bottles) (mecA positive), strep sanguinis (1 out of 2 bottles) BC 10/22 from port: gram positive cocci in clusters (1 out of 2 bottles) MRSA nares positive Antibiotics: Vanc: 10/20 - P Ceftriaxone: 10/20 - 10/22 Cefepime: 10/20 Assessment: Patient Summary: Moshe Maddox is a 29 y.o. male with PMHx sickle cell disease, anemia, chronic pain, multiple DVTon apixaban, stroke (childhood), HCV, and HTN who presented to ED on 10/19 from outpatient pheresis center for a transfusion reaction. Pt had double lumen port placed on 10/04 with IR. He was hospitalized at from 10/04-10/14 for acutepain crisis. On 10/19, within 4-6 minutes of RBC transfusion, pt developed fever, chills, itching, lightheadedness, nausea, severe sharp back pain radiating from his lumbar region into his neck. The transfusion was stopped and pt received diphenhydramine along with home oxycodone and 250ml NS bolus g iven. He had been premedicated with acetaminophen and famotidine. Pt continued to have fever up to 101 and was brought to the ED. In the ED, pt was febrile to 102.4, tachy to 100s. WBC 32.9, Hgb 7, INR 1.4, LDH 1,369, CRP 61.1. CXR no acute findings. Pt received cefepime on 10/20, started on ceftriaxone and vanc since 10/20. Ceftriaxone discontinued on 10/22 at [facility] given that Vanc should cover both staph and strep. Peripheral BC on 10/19 grew strep mitis/oralis (1 out of 2 bottles). BC on 10/19 from port grew staph epidermidis (mecA positive) (2 out of 2 bottles) and strep sanguinis (1 out of 2bottles). XR panorex 10/22 shows no apparent dental caries or definitive evidence of periapical abscess. BC from 10/22 gram stain shows gram positive cocci in clusters (1 out of 2 bottles). We would recommend repeat BC 10/23 from port and peripheral. Pt is currently afebrile with leukocytosis. Low grade temp to 99.2 yesterday PM. WBC downtrending (30.2 -> 19.52 -> 13.29 ->12.51). Hgb 7.5 after transfusion yesterday. Pt understands standard of care would be to remove the port but would not like to have the port removed at this point. We would recommend delivering his abx through the port. We would recommend continuing Vancomycin, could consider continuous infusion. We would recommend echo to rule out endocarditis and repeat peripheral and port blood cultures. ID Problem List: #CLABSI #Strep bacteremia #Staph bacteremia #sickle cell acute pain crisis #hepatitis C Recommendations: - Ideally, we would recommend removing the port. Pt understands standard of care would be to removethe port but would not like to have the port removed at this point. If the port is going to remain,we would recommend delivering abx through it. If pt continues to be bacteremic, then the port should be removed. - Continue Vancomycin, administer through port, consider continuous infusion - Echo to rule out endocarditis - Follow blood cultures, repeat BC today 10/23 from the port and periphery - Repeat BC from port and peripherally - Trend CBC w/diff, CRP, CMP, BMP to monitor for toxicity and ensure appropriate response to treatment - Plan of care and recommendations discussed with patient's primary team. Thank you for allowing us to participate in this patient's care. GEN ID will continue to follow. Shawna Zarate MD PGY1 History, assessment, and plan discussed with ID attending [1] Current Facility-Administered Medications Medication Dose Route Frequency Provider Last Rate Last Admin acetaminophen (Tylenol) tablet 650 mg 650 mg Oral q8h PRN Malik Trent APRN apixaban (Eliquis) tablet 5 mg 5 mg Oral BID Malik Trent [employer] 5 mg at 10/22/242049 bisacodyl (Dulcolax) EC tablet 10 mg 10 mg Oral Daily PRN Malik Trent APRN diclofenac (Voltaren) 1 % topical gel 4 g 4 g Topical 4x daily PRN Malik Trent APRN diphenhydrAMINE (Benadryl) injection 50 mg 50 mg Intravenous q4h PRN Michael Andrade MD 50 mg at 10/23/24 0459 folic acid (Folvite) tablet 1 mg 1 mg Oral Daily Malik Trent APRN 1 mg at 10/22/24 0828 HYDROmorphone (Dilaudid) injection 2 mg 2 mg Intravenous q2h PRN Michael Andrade MD 2 mg at 10/23/24 0659 hydroxyurea (Hydrea) capsule 500 mg 500 mg Oral BID Malik Trent [employer] 500 mg at 10/22/24 2107 lactated Ringer's infusion 150 mL/hr Intravenous Continuous Michael Andrade MD 150 mL/hr at 10/23/24 0504 150 mL/hr at 10/23/24 0504 methocarbamol (Robaxin) tablet 750 mg 750 mg Oral 4x daily PRN Malik Trent [employer] 750 mg at 10/22/24 1448 mupirocin (Bactroban) 2 % ointment 1 Application 1 Application Each Nostril BID Michael Andrade MD 1 Application at 10/22/24 2050 oxyCODONE (Roxicodone) immediate release tablet 30 mg 30 mg Oral q4h PRN Malik Trent APRN 30 mgat 10/23/24 0610 polyethylene glycol (Miralax) packet 17 g 17 g Oral Daily PRN Malik Trent APRN senna (Senokot) tablet 8.6 mg 1 tablet Oral Daily Malik Trent APRN 8.6 mg at 10/21/24 0802 sodium chloride 0.9 % flush 10 mL 10 mL Intravenous q12h Malik Trent [employer] 10 mL at 10/22/24 2302 And sodium chloride 0.9 % flush 10 mL 10 mL Intravenous PRN Malik Trent APRN Vancomycin HCl in NaCl (Vancocin) IVPB 1,000 mg 1,000 mg Intravenous q8h Michael Andrade MD 1,000 mg at 10/22/24 2345 Facility-Administered Medications Ordered in Other Encounters Medication Dose Route Frequency Provider Last Rate Last Admin acetaminophen (Tylenol) tablet 650 mg 650 mg Oral Once PRN Parth Jaquez MD alteplase (Cathflo Activase) injection 2 mg 2 mg Intracatheter PRN Parth Jaquez MD calcium carbonate (Tums) chewable tablet 2,000 mg 2,000 mg Oral 4x daily PRN Parth Jaquez MD diphenhydrAMINE (Benadryl) injection 50 mg 50 mg Intravenous Once PRN Parth Jaquez MD diphenhydrAMINE (Benadryl) tablet 25 mg 25 mg Oral Once PRN Parth Jaquez MD diphenhydrAMINE (Benadryl) tablet 50 mg 50 mg Oral Once PRN Parth Jaquez MD EPINEPHrine (Adrenalin) 1 MG/ML injection 0.1 mg 0.1 mg Intravenous Once PRN Parth Jaquez MD EPINEPHrine (Adrenalin) 1 MG/ML injection 0.3 mg 0.3 mg Intramuscular Once PRN Parth Jaquez MD famotidine (Pepcid) tablet 20 mg 20 mg Oral Daily PRN Parth Jaquez MD famotidine PF (Pepcid) injection 20 mg 20 mg Intravenous Once PRN Parth Jaquez MD methylPREDNISolone sodium succinate (PF) (SOLU-Medrol) injection 125 mg 125 mg Intravenous Once Parth Jaquez MD ondansetron (Zofran) tablet 8 mg 8 mg Oral q8h PRN Parth Jaquez MD sodium chloride 0.9 % bolus 250 mL 250 mL Intravenous Once Parth Jaquez MD sodium citrate anticoagulant 4 % flush 3 mL 3 mL Intracatheter PRN Parth Jaquez MD Cosigned by Jacqueline Dubon MD at 10/24/2024 8:27 AM EDT Associated attestation - Jacqueline Dubon MD - 10/24/2024 8:27 AM EDT I saw and evaluated the patient with the resident/fellow. I discussed the case with the resident/fellow and agree with the findings and plan as documented. Patient with another potential positive blood cx for mrsa. He was upset while we were in the room but did let us exam him. Patient still feels strongly about removing his line. We would consult IT orperhaps Dr. Moss in Cards or maybe vascular about the possibility of new line once this is removed. I think giving the vanco continuously isn't a bad idea. Please repeat blood cx daily until we seethat it has cleared. Please get echo. * Progress Notes - Saw Solano MD - 10/23/2024 7:02 AM EDT Subjective Moshe Maddox is a 29 y.o. 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 Patient premedicated prior to initiation of 1st unit for exchange with acetaminophen and famotidine. Patient reports within 4-6 minutes after starting the acute onset of chills, palpitations, diffuseitching, and severe sharp LBP radiating up into his neck .Transfusion was stopped and diphenhydramine along with home oxycodone and 250ml NS bolus given. Symptoms persisted with 9/10 back pain and temp up to 101F, thus brought to ER for evaluation. Febrile in ED to 102.4F, tachy 100's, other VSS. Labs pertinent for WBC 32.9, Hgb stable at 7, retic count 227.3, INR 1.4, LDH 1,369. CXR no acute findings. Transfusion reaction and BCX collected. Hem advised admit for pain control and further infectious work-up. 10/20/2024: No acute events overnight. 10/21/2024: No acute events overnight. 10/22/2024: No acute events overnight. As per ID, Ideally, we would recommend removing the port. Ptunderstands standard of care would be to remove the port but would not like to have the port removed at this point. If the port is going to remain, we would recommend delivering abx through it. If ptcontinues to be bacteremic, then the port should be removed. DC Rocephin ceftriaxone, continue Vancomycin. Echocardiogram. Panorex shows Evaluation of the central structures are significantly limitedby motion. Within limits of the motion degraded study, there is no apparent dental caries or definite evidence of periapical abscess. 10/23/2024: No adverse events noted overnight. Echocardiogram is still pending. Pt is adamant aboutnot having his port pulled. He is an extremely difficult stick. Patient states that he is will not consent to having the port removed even for a few days. He notes that he has NO veins and Vascular access has a tough time getting blood or an IV even with US guidance. Will attempt to get Blood Cultures tomorrow AM. At around 14 18 was notified by microbiology that the patient was growing Gram-positive cocci in clusters from the blood yesterday drawn at 5:18 a.m. infectious disease notified. Spoke with the patient who was very distraught feels he is not being treated adequately concerned about leaving against medical advice. Explained to the patient regarding the probability stroke myocardialinfarction and other events in the case patient chooses against medical advice. Patient understands. He is alert and oriented able to walk does have the capacity his own medical decision. At this time we will continue with vancomycin Interventional Radiology has also been consulted to have the port removed. Two sets of blood cultures 1 from the central line in 1 from the periphery has been ordered to be done stat. Review of Systems All other systems reviewed and are negative. Objective Vitals Temp: [36.4 ??C (97.6 ??F)-37.4 ??C (99.3 ??F)] 36.8 ??C (98.3 ??F) Heart Rate: [90-101] 90 Resp: [14-25] 19 BP: (126-162)/(75-98) 129/85 Physical Exam Constitutional: General: He is not in acute distress. Appearance: Normal appearance. He is normal weight. He is not ill-appearing or diaphoretic. Eyes: General: No scleral icterus. Cardiovascular: Rate and Rhythm: Normal rate. Pulmonary: Effort: Pulmonary effort is normal. No respiratory distress. Abdominal: General: Abdomen is flat. There is no distension. Palpations: Abdomen is soft. Musculoskeletal: General: No swelling. Normal range of motion. Cervical back: Normal range of motion. Right lower leg: No edema. Left lower leg: No edema. Skin: General: Skin is warm. Capillary Refill: Capillary refill takes less than 2 seconds. Neurological: General: No focal deficit present. Mental Status: He is alert and oriented to person, place, and time. Mental status is at baseline. Assessment & Plan Blood transfusion reaction, initial encounter Moshe Maddox is a 29 y/o Male with a known medical history of Sickle Cell Disease and Hepatitis C presents after fever first noticed after blood transfusion. Bacteremia: Blood cultures (8/15) from Hand growing Streptococcus mitis/oralis group. Blood Cultures (15) from port growing Staphylococcus coagulase negative, MecA Positive. Panorex (10/22) showed: Evaluation of the central structures are significantly limited by motion. Within limits of the motion degraded study, there is no apparent dental caries or definite evidence of periapical abscess. Repeat blood cultures (10/22) are NGTD antibiotics (started 10/20/24) Vanc (for Staph) thru the port Volume Resuscitation - LR 150mL/hr Echo to rule out endocarditis Get stat blood cultures around 1600 Interventional Radiology consulted to have port removed Repeat two set of Blood cultures tomorrow AM. Sickle cell acute pain crisis & Sickle cell anemia: continue hydroxyurea 500mg BID, folic acid 1mg daily Pain control Hydromorphone 2mg IV q2h PRN diphenhydramine 50mg IV q4h PRN home oxycodone 30mg q4h PRN diclofenac gel 4g QID PRN acetaminophen 650mg q8h PRN, methocarbamol 750mg QID PRN, lidoderm patch daily Bowel Regimen: senna 8.6mg daily Hx of multiple DVT, 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: continue apixaban 5mg BID Hepatitis C, HCV VL 113,695 (08/10/24) HAV Naive. HBV Surface Ag negative, Hep B core Total AB positive Hepatology follow-up at discharge Tobacco Use Disorder (Vapes) - he declined NRT FENGI: Regular DVT prophylaxis: Eliquis apixaban 5 mg PO BID GI prophylaxis: NONE Code status: Full Code Disposition: Home when stable. Saw Solano MD Internal Medicine Hospitalist [employer] Department of Internal Medicine Division [place] [address] Preferred method is secure chat or cell phone at [phone] Medically Ready for Discharge:Anticipated in 2-4 Days * Care Plan - Yojana Knight - 10/23/2024 2:43 AM EDT Problem: Adult Inpatient Plan of Care Goal: Plan of Care Review Outcome: Ongoing, Progressing Flowsheets Taken 10/21/20242238 by Sanjuana Cooper Outcome Evaluation: patient pain will be controlled during shift Taken 10/21/20248 by Sanjuana Cooper Progress: no change Plan of Care Reviewed With: patient Goal: Patient-Specific Goal (Individualized) Outcome: Ongoing, Progressing Flowsheets (Taken 10/22/20241999) Patient/Family-Specific Goals (Include Timeframe): pt will remain free from harm this shift Individualized Care Needs: safety Anxieties, Fears or Concerns: none stated Goal: Absence of Hospital-Acquired Illness or Injury Outcome: Ongoing, Progressing Goal: Optimal Comfort and Wellbeing Outcome: Ongoing, Progressing * Progress Notes - Michael Andrade MD - 10/22/2024 2:29 PM EDT Subjective: No acute events overnight Review of Systems: Constitutional: no fevers, no weakness, no weight loss, normal appetite Cardiovascular: no chest pain, no palpitations, no edema Respiratory: no shortness of breath, no cough Gastrointestinal: no nausea, no vomiting, no diarrhea, no constipation, no abdominal pain Musculoskeletal: + back pain, + shoulder pain, + hip pain, no knee pain All other review of systems are negative. Active Medications: Current Scheduled Medications[1] Current Continuous Medications[2] Current PRN Medications[3] Objective: Visit Vitals BP (!) 145/78 (BP Location: Left arm, Patient Position: Lying) Pulse 101 Temp 36.8 ??C (98.2 ??F) (Oral) Resp 14 Ht 1.829 m (6') Wt 78.6 kg (173 lb 4.5 oz) SpO2 94% BMI 23.50 kg/m?? Smoking Status Former BSA 2 m?? Physical Exam: General: AOx3, no acute distress, well-nourished Cardiovascular: regular s1/s2, no murmurs, no JVD, no lower extremity edema Pulmonary: clear, no crackles, no wheezes, non-labored Abdom: normal bowel sounds, soft, non-tender, non-distended Muskuloskeletal: full RoM in BUE, full RoM in Knees, full RoM in Hips Dermatologic: no rashes, no lesions, no ulcers Labs: Lab Results Component Value Date NA 137 10/22/2024 K 3.6 10/22/2024 CL 105 10/22/2024 CO2 22 10/22/2024 BUN 7 10/22/2024 CREATININE 0.70 10/22/2024 ALT 41 10/22/2024 AST 76 (H) 10/22/2024 Lab Results Component Value Date WBC 13.29 (H) 10/22/2024 HGB 6.4 (LL) 10/22/2024 PLT 408 (H) 10/22/2024 MCV 86 10/22/2024 ASSESSMENT/PLAN: Moshe Maddox: 29yo Male PMHx Sickle Cell Disease presents after fever first noticed after blood transfusion #) Bacteremia Blood cultures (10/19) from Hand growing Streptococcus mitis/oralis group Blood Cultures (10/19) from port growing Staphylococcus coagulase negative, MecA Positive Panorex (10/22) showed: Evaluation of the central structures are significantly limited by motion. Within limits of the motion degraded study, there is no apparent dental caries or definite evidenceof periapical abscess Repeat blood cultures (10/22) are NGTD /Plan: - Empiric antibiotics (started 10/20/24) Ceftriaxone (for Strep) Vanc (for Staph) - Volume Resuscitation - LR 150mL/hr - Echo to rule out endocarditis #) Sickle cell acute pain crisis #) Sickle cell anemia /Plan: - continue hydroxyurea 500mg BID, folic acid 1mg daily - Pain control Hydromorphone 2mg IV q2h PRN diphenhydramine 50mg IV q4h PRN home oxycodone 30mg q4h PRN diclofenac gel 4g QID PRN acetaminophen 650mg q8h PRN, methocarbamol 750mg QID PRN, lidoderm patch daily - Bowel Regimen senna 8.6mg daily #) Hx of multiple DVT, 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 - continue apixaban 5mg BID #) Hepatitis C HCV VL 113,695 (08/10/24) HAV Naive /Plan: - Check HBV immunity - Hepatology follow-up at discharge #) Tobacco Use Disorder (Vapes) - he declined NRT #) Fluids/Nutrition - Regular diet #) Prophylaxis - Apixaban #) Code Status FULL CODE Patient care included the following components: Complexity: a severe exacerbation or progression of 1 or more chronic illnesses or with side effects of treatment Data: Review of at least three lab results: inflammatory markers (WBC, CRP, Procal), renal functionmarkers (Creatinine, BUN, potassium), electrolyte levels (Potassium, Magnesium, Phos, Calcium) Data: Discussion of management with other physicians Risk: Parenteral controlled substances Michael Andrade MD PhD Division of Hospital Medicine [phone] [1] acetaminophen, 650 mg, Oral, Once apixaban, 5 mg, Oral, BID cefTRIAXone, 2 g, Intravenous, q24h diphenhydrAMINE, 50 mg, Intravenous, Once folic acid, 1 mg, Oral, Daily hydroxyurea, 500 mg, Oral, BID mupirocin, 1 Application, Each Nostril, BID senna, 1 tablet, Oral, Daily sodium chloride, 10 mL, Intravenous, q12h vancomycin, 1,000 mg, Intravenous, q8h [2] lactated Ringer's, 150 mL/hr, Last Rate: 150 mL/hr (10/22/24 1257) [3] PRN medications: acetaminophen, bisacodyl, diclofenac, diphenhydrAMINE, HYDROmorphone, methocarbamol, oxyCODONE, polyethylene glycol, Insert peripheral IV AND Saline lock IV AND sodium chloride AND sodium chloride * Consults - Shawna Zarate MD - 10/22/2024 12:53 PM EDTAssociated Order(s): Inpatient consult to Infectious Diseases Images from the original note were not included. Inpatient consult to Infectious Diseases Consult performed by: Shawna Zarate MD Consult ordered by: Michael Andrade MD GENERAL INFECTIOUS DISEASE INPATIENT CONSULT NOTE Reason for Consult: Strep and Staph bacteremia, CLABSI Attending: Michael Andrade MD Date of admission: 10/19/2024 History of Present Illness: Moshe Maddox is a 29 y.o. male with history of sickle cell disease, anemia, chronic pain, multiple DVT on apixaban, stroke (childhood), HCV, and HTN who presented to ED on 10/19 from outpatient pheresis center for a transfusion reaction. Pt was seen and examined at bedside. History was obtained from patient and medical records. Pt had double lumen port placed on 10/04 with IR. He presented to the ED the same day for left chest pain and joint pain. He had been having this pain for several days but did not want to present until after scheduled port placement. He was discharged on 10/14. On 10/19, pt was premedicated with acetaminophen and famotidine prior to RBC exchange. Pt reports hegenerally receives acetaminophen and IV benadryl. Within 4-6 minutes of exchange, pt developed fever, chills, itching, lightheadedness, nausea, severe sharp back pain radiating from his lumbar regioninto his neck. The transfusion was stopped and pt received diphenhydramine along with home oxycodone and 250ml NS bolus given. Pt continued to have fever up to 101 and was brought to the ED. In the ED, pt was febrile to 102.4, tachy to 100s. WBC 32.9, Hgb 7, INR 1.4, LDH 1,369, CRP 61.1. CXR no acute findings. Pt reports continued occasional fever, chills, back pain, chest pain, nausea and headache. He notesthat he does feel his chest pain, headache, and nausea are improving. However, he reports significant fatigue and weakness. Hgb 6.4. Pt is currently afebrile with leukocytosis. Temperature to 101.1 yesterday AM and 100.7 F yesterday PM. WBC downtrending (30.2 -> 19.52 -> 13.29). Denies abdomin al pain, vomiting, diarrhea, urinary symptoms, SOB. Review of Systems: Review of Systems Constitutional: Positive for chills, fever and malaise/fatigue. HENT: Negative. Cardiovascular: Positive for chest pain. Respiratory: Negative. Musculoskeletal: Positive for back pain and joint pain. Gastrointestinal: Negative. Genitourinary: Negative. Neurological: Positive for headaches and weakness. Psychiatric/Behavioral: Negative. PMH: Past Medical History[1] PSH: Surgical History[2] FH: Family History[3] SH: Social History[4] Allergies: Allergies[5] Objective: Visit Vitals BP (!) 145/78 (BP Location: Left arm, Patient Position: Lying) Pulse 101 Temp 36.8 ??C (98.2 ??F) (Oral) Resp 14 Ht 1.829 m (6') Wt 78.6 kg (173 lb 4.5 oz) SpO2 94% BMI 23.50 kg/m?? Smoking Status Former BSA 2 m?? Physical Exam Constitutional: General: He is not in acute distress. HENT: Head: Normocephalic. Mouth/Throat: Mouth: Mucous membranes are moist. Pharynx: Oropharynx is clear. Eyes: Conjunctiva/sclera: Conjunctivae normal. Cardiovascular: Rate and Rhythm: Normal rate and regular rhythm. Pulmonary: Effort: Pulmonary effort is normal. Breath sounds: Normal breath sounds. Chest: Comments: Port on left side of chest Abdominal: General: Abdomen is flat. Palpations: Abdomen is soft. Tenderness: There is no abdominal tenderness. Musculoskeletal: General: Normal range of motion. Cervical back: Normal range of motion. No tenderness. Skin: General: Skin is warm and dry. Neurological: General: No focal deficit present. Mental Status: He is alert and oriented to person, place, and time. Psychiatric: Mood and Affect: Mood normal. Behavior: Behavior normal. Patient records reviewed and pertinent findings outlined below. Labs: CBC WBC 13.29 (H) Hb 6.4 (LL) Plt 408 (H) Hct 18.9 (LL) ANC ?? BMP Na 137 Cl 105 BUN 7 Glu 91 K 3.6 Co2 22 Cr 0.70 Mg 1.7 (L), Phos 4.5 LFT AST 76 (H) AlkPhos 60 T Prot 7.3 ALK 41 Bili 2.0 (H) Alb ?? D.Bili ?? Results from last 7 days Lab Units 10/22/24 0516 10/21/24 0433 10/20/24 0442 CRP mg/L 47.2* 49.8* 61.1* Medications: Current Medications[6] Imaging/Studies: XR Panorex Result Date: 10/21/2024 Impression: Evaluation of the central structures are significantly limited by motion. Within limitsof the motion degraded study, there is no apparent dental caries or definite evidence of periapicalabscess. CRITICAL RESULT: No. COMMUNICATION: Per this written report. Drafted by Christiano Boston on 10/21/2024 3:42 PM Final report signed by Christiano Boston on 10/21/2024 3:45 PM XR Panorex Narrative: CLINICAL INDICATION: Looking for source of Strep bacteremia TECHNIQUE: XR PANOREX COMPARISON: August 06, 2024 FINDINGS: Limited evaluation of the central structures due to motion. Within limits of the study, no apparentdental caries. Lucency along the distal roots may represent a component of odontogenic disease. No focal lucency to suggest periapical abscess. Dental amalgam. Impression: Evaluation of the central structures are significantly limited by motion. Within limits of the motion degraded study, there is no apparent dental caries or definite evidenceof periapical abscess. CRITICAL RESULT: No. COMMUNICATION: Per this written report. Drafted by Christiano Boston on 10/21/2024 3:42 PM Final report signed by Christiano Boston on 10/21/2024 3:45 PM Micro: Susceptibility data from last 90 days. Collected Specimen Info Organism Ampicillin Ampicillin/Sulbactam Aztreonam Cefazolin Cefepime Susceptibility Ceftriaxone Ciprofloxacin Ertapenem Erythromycin Gentamicin Levofloxacin Linezolid Meropenem Penicillin G 10/20/24 Swab from Nares and Venecia Rectal Methicillin-Resistant Staphylococcus aureus 10/19/24 Blood, Venous Streptococcus sanguinis I Staphylococcus coagulase negative 10/19/24 Blood from Hand, Left Streptococcus mitis/oralis group S I 08/18/24 Blood, Venous Klebsiella pneumoniae ESBL, MDR (1) R R R R R R S S R S S Klebsiella pneumoniae ESBL, MDR (2) R R R R R R S S R S S 08/04/24 Blood from AC, Right Streptococcus mitis/oralis group (1) I S S Gemella haemolysans Streptococcus mitis/oralis group (2) 08/04/24 Blood from Bicep, left Streptococcus mitis/oralis group S I Rothia dentocariosa R R S S Collected Specimen Info Organism Piperacillin/Tazobactam Tetracycline Tobramycin Trimethoprim/Sulfamethoxazole Vancomycin 10/20/24 Swab from Nares and Venecia Rectal Methicillin-Resistant Staphylococcus aureus 10/19/24 Blood, Venous Streptococcus sanguinis Staphylococcus coagulase negative 10/19/24 Blood from Hand, Left Streptococcus mitis/oralis group 08/18/24 Blood, Venous Klebsiella pneumoniae ESBL, MDR (1) R R R R Klebsiella pneumoniae ESBL, MDR (2) R R R R 08/04/24 Blood from AC, Right Streptococcus mitis/oralis group (1) Gemella haemolysans Streptococcus mitis/oralis group (2) 08/04/24 Blood from Bicep, left Streptococcus mitis/oralis group Rothia dentocariosa S Results Procedure Component Value Units Date/Time Blood Culture (Aerobic/Anaerobet Set) [[id number]] Collected: 10/22/24 0516 Order Status: Completed Specimen: Blood, Central Line Updated: 10/22/24 08 Culture Culture in lab Blood Culture (Aerobic/Anaerobet Set) [[id number]] (Abnormal) (Susceptibility) Collected: 10/19/242103 Order Status: Completed Specimen: Blood, Venous Updated: 10/22/24 0223 Culture Staphylococcus coagulase negative Comment: Isolated from aerobic and anaerobic culture bottles. Isolated from one set of blood culture bottles only. If workup required, contact bacteriology at [phone]. This organism may be associated with a contaminated culture. Correlate clinically. The organism value for this result has been updated. These results have been appended to the previously preliminary verified report. Streptococcus sanguinis Comment: Isolated from anaerobic culture bottle only. The organism value for this result has been updated. These results have been appended to the previously preliminary verified report. Gram Stain Gram positive cocci in chains Comment: Organism seen in Anaerobic Blood Culture Bottle. Positivity Date and Time to Detection: 10/20/2024. at 00 Day(s) and 18 Hour(s). This is an appended report. These results have been appended to a previously preliminary verified report. Gram positive cocci in clusters Comment: Organism seen in Anaerobic Blood Culture Bottle. Positivity Date and Time to Detection: 10/20/2024. at 00 Day(s) and 18 Hour(s). This is an appended report. These results have been appended to a previously preliminary verified report. Gram positive cocci in clusters Comment: Organism seen in Aerobic Blood Culture Bottle. Positivity Date and Time to Detection: 10/20/2024 at 00 Day(s) and 18 Hour(s). This is an appended report. These results have been appended to a previously preliminary verified report. Susceptibility Streptococcus sanguinis ETEST (Preliminary) Penicillin G Intermediate Blood Culture (Aerobic/Anaerobet Set) [[id number]] (Abnormal) (Susceptibility) Collected: 10/19/241954 Order Status: Completed Specimen: Blood from Hand, Left Updated: 10/21/242009 Culture Streptococcus mitis/oralis group Comment: Isolated from aerobic culture bottle only. This isolate has been identified using the FDA Approved Trippeoyper CA System The organism value for this result has been updated. These results have been appended to the previously preliminary verified report. This is a corrected result. Previous organism was Streptococcus Alpha Hemolytic on 10/21/2024 at 0753 EDT. Gram Stain Gram positive cocci in chains Comment: Organism seen in Aerobic Blood Culture Bottle. Positivity Date and Time to Detection: 10/20/2024 at 00 Day(s) and 11 Hour(s). This is an appended report. These results have been appended to a previously preliminary verified report. Narrative: Low blood volume submitted, results may be compromised Susceptibility Streptococcus mitis/oralis group ETEST (Preliminary) Ceftriaxone Susceptible Penicillin G Intermediate Multi Drug Resistance Test [[id number]] (Abnormal) Collected: 10/20/24 0310 Order Status: Completed Specimen: Swab from Nares and Venecia Rectal Updated: 10/21/24 0848 Culture Methicillin-Resistant Staphylococcus aureus Comment: The organism value for this result has been updated. These results have been appended to the previously preliminary verified report. <null> has been updated to reportable. Narrative: This test was developed and its performance characteristics determined by the [facility]. Although the media is FDA-approved, it is not FDA-approved for all specimen types submitted. The FDA has determined that such clearance or approval is not necessary. This test is used for surveillance purposes. It should not be regarded as investigational or for research. The [facility] is certified under the ClinicalLaboratory Improvement Amendments of 1988 (CLIA-88) as qualified to perform high complexity clinical laboratory testing. Bacterial ID Gram Positive [[id number]] (Abnormal) Collected: 10/19/24 210 Order Status: Completed Specimen: Blood, Venous Updated: 10/21/24 0806 Staphylococcus Result Detected Comment: From aerobic bottle only Assess if contaminant or clinically relevant pathogen. Consider clinical stability and immune status of patient. These results have been appended to a previously final verified report. Staphylococcus epidermidis Result Detected Comment: From aerobic bottle only Assess if contaminant or clinically relevant pathogen. Consider clinical stability and immune status of patient. These results have been appended to a previously final verified report. Streptococcus Result Detected Comment: From anaerobic bottle only MECA Result Detected Comment: From aerobic bottle only These results have been appended to a previously final verified report. Narrative: Analytes include: Bacillus cereus group, Bacillus subtilis group, Corynebacterium, Cutibacterium acnes (P acnes), Enterococcus, Enterococcus faecalis, Enterococcus faecium, Lactobacillus, Listeria, Listeria monocytogenes, Micrococcus, Staphylococcus, Staphylococcus aureus, Staphylococcus epidermidis, Stapylcoccus lugdunesis, Streptococcus, Streptococcus agalactiae, Streptococcus anginosus group, Streptococcus pneumoniae, Streptococcus pyogenes, Wharton gram negative target, Wharton Miguel target and mecA, mecC, Mine and vanB resistance genes. NOTE: A Not Detected result for result for a resistance gene does not indicate susceptibility to antimicrobials by mechanisms other than carrying the resistance genes detected by the BCID-GP assay. . WHARTON MIGUEL: Inclusive of Miguel albicans, Miguel glabrata, Pichia kudriavzevii (formerly Candidakrusei) and Miguel parapsilosis only. . WHARTON GRAM NEGATIVE: Includes but not limited to Acinetobacter, Bacteroides, Enterobacteriaceae, Neisseria, Pseudomonas, Serratia, Stenotrophomonas maltophilia. . Reference Value: Not detected for all analytes tested. Micro: Transfusion bag culture: no growth day 3 BC 10/19 from left hand: strep mitis/oralis (1 out of 2 bottles) BC 10/19 from port: staph coagulase neg (2 out of 2 bottles) - Bacterial ID staph epidermidis, mecA positive, strep sanguinis (1 out of 2 bottles) BC 10/22: pending MRSA nares positive Antibiotics: Vanc: 10/20 - P Ceftriaxone: 10/20 - P Cefepime: 10/20 Assessment: Patient Summary: Moshe Maddox is a 29 y.o. male with PMHx sickle cell disease, anemia, chronic pain, multiple DVTon apixaban, stroke (childhood), HCV, and HTN who presented to ED on 10/19 from outpatient pheresis center for a transfusion reaction. Pt had double lumen port placed on 10/04 with IR. He was hospitalized at from 10/04-10/14 for acutepain crisis. On 10/19, within 4-6 minutes of RBC transfusion, pt developed fever, chills, itching, lightheadedness, nausea, severe sharp back pain radiating from his lumbar region into his neck. The transfusion was stopped and pt received diphenhydramine along with home oxycodone and 250ml NS bolus g iven. He had been premedicated with acetaminophen and famotidine. Pt continued to have fever up to 101 and was brought to the ED. In the ED, pt was febrile to 102.4, tachy to 100s. WBC 32.9, Hgb 7, INR 1.4, LDH 1,369, CRP 61.1. CXR no acute findings. Pt received cefepime on 10/20, has been on ceftriaxone and vanc since 10/20. Peripheral BC on 10/19 grew strep mitis/oralis (1 out of 2 bottles). BC on10/19 from port grew staph coagulase neg (2 out of 2 bottles) (Bacterial ID staph epidermidis, mecA positive) and strep sanguinis (1 out of 2 bottles). BC from 10/22 currently pending. XR panorex 10/22 shows no apparent dental caries or definitive evidence of periapical abscess. Pt is currently afebrile with leukocytosis. Temperature to 101.1 yesterday AM and 100.7 F yesterdayPM. WBC downtrending (30.2 -> 19.52 -> 13.29). Hgb 6.4. Pt understands standard of care would be to remove the port but would not like to have the port removed at this point. We would recommend delivering his abx through the port. If pt continues to be bacteremic, then the port should be removed. We would recommend continuing Vancomycin. Ceftriaxone canbe discontinued as vanc should cover both strep and staph. We would recommend echo to rule out endocarditis and repeat peripheral and port blood cultures. Problem List: #CLABSI #Strep bacteremia #Staph bacteremia #sickle cell acute pain crisis #hepatitis C Recommendations: - Ideally, we would recommend removing the port. Pt understands standard of care would be to removethe port but would not like to have the port removed at this point. If the port is going to remain,we would recommend delivering abx through it - If pt continues to be bacteremic, then the port should be removed - Continue Vancomycin, administer through port - Discontinue ceftriaxone - Echo to rule out endocarditis - Follow blood cultures, workup coag neg staph, BC redrawn from 10/22 - Repeat BC from port and peripherally - Trend CBC w/diff, CRP, CMP, BMP to monitor for toxicity and ensure appropriate response to treatment - Plan of care and recommendations discussed with patient's primary team. Thank you for allowing us to participate in this patient's care. GEN ID will follow. Shawna Zarate MD PGY1 History, assessment, and plan discussed with ID attending, Dr. 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 Bloodstream infection due to central venous catheter, initial encounter 08/25/2024 Collapsed vertebra, not elsewhere classified, thoracic region, initial encounter for fracture (CMS/HCC) 08/14/2024 Epididymo-orchitis 04/26/2024 Hepatitis B Hepatitis C History of DVT (deep vein thrombosis) 11/24/2023 Hypertension Sickle cell anemia Streptococcal sepsis, unspecified (CMS/HCC) 08/18/2024 Stroke ([facility]) [2] Past Surgical History: Procedure Laterality Date CHOLECYSTECTOMY INCISION AND DRAINAGE, SKIIN ABCESS N/A PORTACATH PLACEMENT multiple since removed TONSILLECTOMY W/ ADENOIDECTOMY [3] Family History Problem Relation Name Age of Onset No Known Problems Mother Sickle cell anemia Niece [4] Social History Tobacco Use Smoking status: Former Current packs/day: 0.00 Average packs/day: 0.3 packs/day for 3.0 years (0.8 ttl pk-yrs) Types: Cigarettes Start date: 2012 Quit date: 2016 Years since quittin.6 Passive exposure: Past Smokeless tobacco: Never Vaping Use Vaping status: Never Used Substance Use Topics Alcohol use: Never Drug use: Never [5] Allergies Allergen Reactions Mushroom Extract Complex (Obsolete) Itching and Swelling Pt reports being allergic to all mushrooms Morphine Hives [6] Current Facility-Administered Medications Medication Dose Route Frequency Provider Last Rate Last Admin acetaminophen (Tylenol) tablet 650 mg 650 mg Oral q8h PRN Malik Trent [employer] acetaminophen (Tylenol) tablet 650 mg 650 mg Oral Once Michael Andrade MD apixaban (Eliquis) tablet 5 mg 5 mg Oral BID Malik Trent [employer] 5 mg at 10/22/24 0828 bisacodyl (Dulcolax) EC tablet 10 mg 10 mg Oral Daily PRN Malik Trent APRN cefTRIAXone (Rocephin) 2 g in sodium chloride 0.9% 100 mL IVPB (vial adapter required) 2 g Intravenous q24h Michael Andrade MD 220 mL/hr at 10/21/24 1808 2 g at 10/21/24 1808 diclofenac (Voltaren) 1 % topical gel 4 g 4 g Topical 4x daily PRN Malik Trent APRN diphenhydrAMINE (Benadryl) injection 50 mg 50 mg Intravenous q4h PRN Michael Andrade MD 50 mg at 10/22/24 1217 diphenhydrAMINE (Benadryl) injection 50 mg 50 mg Intravenous Once Michael Andrade MD folic acid (Folvite) tablet 1 mg 1 mg Oral Daily Malik Trent APRN 1 mg at 10/22/24 0828 HYDROmorphone (Dilaudid) injection 2 mg 2 mg Intravenous q2h PRN Michael Andrade MD 2 mg at 10/22/24 1222 hydroxyurea (Hydrea) capsule 500 mg 500 mg Oral BID Malik Trent APRN 500 mg at 10/22/24 0828 lactated Ringer's infusion 150 mL/hr Intravenous Continuous Michael Andrade MD methocarbamol (Robaxin) tablet 750 mg 750 mg Oral 4x daily PRN Malik Trent APRN 750 mg at 10/22/24 0938 mupirocin (Bactroban) 2 % ointment 1 Application 1 Application Each Nostril BID Michael Andrade MD 1 Application at 10/21/24 203 oxyCODONE (Roxicodone) immediate release tablet 30 mg 30 mg Oral q4h PRN Malik Trent APRN 30 mgat 10/22/24 0938 polyethylene glycol (Miralax) packet 17 g 17 g Oral Daily PRN Malik Trent APRN senna (Senokot) tablet 8.6 mg 1 tablet Oral Daily Malik Trent APRN 8.6 mg at 10/21/24 0802 sodium chloride 0.9 % flush 10 mL 10 mL Intravenous q12h Malik Trent APRN 10 mL at 10/22/24 1219 And sodium chloride 0.9 % flush 10 mL 10 mL Intravenous PRN Malik Trent APRN Vancomycin HCl in NaCl (Vancocin) IVPB 1,000 mg 1,000 mg Intravenous q8h Michael Andrade MD Facility-Administered Medications Ordered in Other Encounters Medication Dose Route Frequency Provider Last Rate Last Admin acetaminophen (Tylenol) tablet 650 mg 650 mg Oral Once PRN Parth Jaquez MD alteplase (Cathflo Activase) injection 2 mg 2 mg Intracatheter PRN Parth Jaquez MD calcium carbonate (Tums) chewable tablet 2,000 mg 2,000 mg Oral 4x daily PRN Parth Jaquez MD diphenhydrAMINE (Benadryl) injection 50 mg 50 mg Intravenous Once PRN Parth Jaquez MD diphenhydrAMINE (Benadryl) tablet 25 mg 25 mg Oral Once PRN Parth Jaquez MD diphenhydrAMINE (Benadryl) tablet 50 mg 50 mg Oral Once PRN Parth Jaquez MD EPINEPHrine (Adrenalin) 1 MG/ML injection 0.1 mg 0.1 mg Intravenous Once PRN Parth Jaquez MD EPINEPHrine (Adrenalin) 1 MG/ML injection 0.3 mg 0.3 mg Intramuscular Once PRN Parth Jaquez MD famotidine (Pepcid) tablet 20 mg 20 mg Oral Daily PRN Parth Jaquez MD famotidine PF (Pepcid) injection 20 mg 20 mg Intravenous Once PRN Parth Jaquez MD methylPREDNISolone sodium succinate (PF) (SOLU-Medrol) injection 125 mg 125 mg Intravenous Once Parth Jaquez MD ondansetron (Zofran) tablet 8 mg 8 mg Oral q8h PRN Parth Jaquez MD sodium chloride 0.9 % bolus 250 mL 250 mL Intravenous Once Parth Jaquez MD sodium citrate anticoagulant 4 % flush 3 mL 3 mL Intracatheter PRN Parth Jaquez MD Cosigned by Jacqueline Dubon MD at 10/22/2024 10:28 PM EDT Associated attestation - Jacqueline Dubon MD - 10/22/2024 10:28 PM EDT I saw and evaluated the patient with the resident/fellow. I discussed the case with the resident/fellow and agree with the findings and plan as documented. Patient with recent new port placed. Now with perhp blood cx: s. Mitis/oralis and port growing coagneg staph and strep. On 10/19. Unfortunately we do not have cx from 10/20 or 10/21. Please repeat blood cx now and obtain TTE. I have discussed our recommendations with patient that we should probably pull the port. He would like to try to treat through this and understands that we may not clear the infection and would then still need to pull. This is the route he wants to go at this time. We will need get opat involved for an evaluation. MDM attestation - Today, I am treating the patient for bacteremia which can cause sepsis/ in the short-term future in the absence of appropriate treatment, as described in the note. - Assessment required an independent historian, additional information obtained from chart/emr - Independently interpreted test blood cx which shows strep and coag neg staph. - Discussed management of bactermia and possible port infection with primary team and consulting services. - Discussed test interpretation of the above with primary team - Reviewed notes by primary team and consulting services to determine appropriate plan of care as in the note. - Estimated Creatinine Clearance: 125 mL/min (by C-G formula based on SCr of 0.7 mg/dL).reviewed; antibiotics recommended above are dosed accordingly. - The patient is being intensively monitored for antimicrobial toxicity from high dose abx with thefollowing tests: CBC, CMP. The following complex inpatient infectious disease services were performed today: Disease transmission risk assessment and mitigation and Complex antimicrobial therapy counseling and treatment * Consults - Althea Perez RD - 10/22/2024 11:23 AM EDT 10/22: Pt screened for food allergy, yazidi, or cultural needs via nursing nutrition screen. 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 All other nursing screen questions were negative - no current indication for a full nutrition assessment after chart review. Please feel free to consult nutrition team for assessment if any nutrition related needs arise. Althea Perez RD, LD * Samantha Hernandez PharmD - 10/22/2024 9:48 AM EDT Images from the original note were not included. [id number] Apixaban IMPORTANT WARNING: If you have atrial fibrillation (a condition in which the heart beats irregularly, increasing the chance of clots forming in the body, and possibly causing strokes) and are taking apixaban to help prevent strokes or serious blood clots, you are at a higher risk of having a stroke after you stop taking this medication. Do not stop taking apixaban without talking to your doctor. Continue to take apixaban even if you feel well. Be sure to refill your prescription before you run out of medication so that you will not miss any doses of apixaban. If you need to stop taking apixaban, your doctor mayprescribe another anticoagulant ('blood thinner') to help prevent a blood clot from forming and causing you to have a stroke. If you have epidural or spinal anesthesia or a spinal puncture while taking a 'blood thinner' such as apixaban, you are at risk of having a blood clot form in or around your spine that could cause you to become paralyzed. Tell your doctor if you have an epidural catheter that is left in your body or have or have ever had repeated epidural or spinal punctures, spinal deformity, or spinal surgery. Tell your doctor and pharmacist if you are taking any of the following: anagrelide (Agrylin??); aspirin and other nonsteroidal anti-inflammatory drugs (NSAIDs) such as ibuprofen (Advil??, Motrin??, others), indomethacin (Indocin??, Tivorbex??), ketoprofen, and naproxen (Aleve??, Anaprox??, others); cilostazol (Pletal??); clopidogrel (Plavix??); dipyridamole (Persantine??); eptifibatide (Integrilin??); heparin; prasugrel (Effient??); ticagrelor (Brilinta??); ticlopidine; tirofiban (Aggrastat??), and warfarin (Coumadin??, Jantoven??). If you experience any of the following symptoms, call your doctor immediately: muscle weakness (especially in your legs and feet), numbness or tingling (especially in your legs), or loss of control of your bowels or bladder. Your doctor or pharmacist will give you the gold beater's patient information sheet (Medication Guide) when you begin treatment with apixaban and each time you refill your prescription. Read the information carefully and ask your doctor or pharmacist if you have any questions. You can also visit the Food and Drug Administration (FDA) website (https://www.fda.gov/Drugs/DrugSafety/uzg468599.htm) or the gold be[employer]'s website to obtain the Medication Guide. Talk to your doctor about the risks of taking apixaban. WHY is this medicine prescribed? Apixaban is used to help prevent strokes or blood clots in people who have atrial fibrillation (a condition in which the heart beats irregularly, increasing the chance of clots forming in the body and possibly causing strokes) that is not caused by heart valve disease. Apixaban is also used to prevent deep vein thrombosis (DVT; a blood clot, usually in the leg) and pulmonary embolism (PE; a bloodclot in the lung) in people who are having hip replacement or knee replacement surgery. Apixaban isalso used to treat DVT and PE and may be continued to prevent DVT and PE from happening again afterthe initial treatment is completed. Apixaban is in a class of medications called factor Xa inhibitor s. It works by blocking the action of a certain natural substance that helps blood clots to form. HOW should this medicine be used? Apixaban comes as a tablet to take by mouth. It is usually taken with or without food twice a day. When apixaban is taken to prevent DVT and PE after hip or knee replacement surgery, the first dose should be taken at least 12 to 24 hours after surgery. Apixaban is usually taken for 35 days after a hip replacement surgery and for 12 days after knee replacement surgery. Take apixaban at around the same times every day. Follow the directions on your prescription label carefully, and ask your doctor or pharmacist to explain any part you do not understand. Take apixaban exactly as directed. Do nottake more or less of it or take it more often than prescribed by your doctor. If you are unable to swallow the tablets, you can crush them and mix with water, apple juice, or applesauce. Swallow the mixture right after you prepare it. Apixaban can also be given in certain types of feeding tubes. Ask your doctor if you should take this medication in your feeding tube. Follow your doctor's directions carefully. Continue to take apixaban even if you feel well. Do not stop taking apixaban without talking to your doctor. If you stop taking apixaban, your risk of a blood clot may increase. Are there OTHER USES for this medicine? This medication may be prescribed for other uses; ask your doctor or pharmacist for more information. What SPECIAL PRECAUTIONS should I follow? Before taking apixaban, ? tell your doctor and pharmacist if you are allergic to apixaban, any other medications, or any ofthe ingredients in apixaban tablets. Ask your pharmacist or check the Medication Guide for a list of the ingredients. ? Tell your doctor and pharmacist what prescription and nonprescription medications, vitamins, nutritional supplements, and herbal products you are taking or plan to take while taking apixaban. Your doctor may need to change the doses of your medications or monitor you carefully for side effects. ? The following nonprescription or herbal products may interact with apixaban: Quynh's wort; aspirin; NSAIDs (such as ibuprofen [Advil??, Motrin??] and naproxen [Aleve??, Naprosyn??]). Be sure to let your doctor and pharmacist know that you are taking these medications before you start taking apixaban. Do not start any of these medications while taking apixaban without discussing with your healthcare provider. ? you should know that apixaban may interact with certain medications that may be used to treat youif you have a stroke or other medical emergency. In case of an emergency, you or a family member should tell the doctor or emergency room staff who treat you that you are taking apixaban. ? tell your doctor if you have an artificial heart valve or if you have heavy bleeding anywhere in your body that cannot be stopped. Your doctor will probably tell you not to take apixaban. ? tell your doctor if you have or have ever had any type of bleeding problem, antiphospholipid syndrome (APS; a condition that causes blood clots), or kidney or liver disease. ? tell your doctor if you are , plan to become , or are . If you become while taking apixaban, call your doctor. ? if you are having surgery, including dental surgery, tell the doctor or dentist that you are taking apixaban. Your doctor may tell you to stop taking apixaban before the surgery or procedure. If you need to stop taking apixaban because you are having surgery, your doctor may prescribe a differentmedication to prevent blood clots during this time. Your doctor will tell you when you should starttaking apixaban again after your surgery. Follow these directions carefully. ? Call your doctor right away if you fall or injure yourself, especially if you hit your head. Yourdoctor may need to check you. What SPECIAL DIETARY instructions should I follow? Unless your doctor tells you otherwise, continue your normal diet. What should I do IF I FORGET to take a dose? Take the missed dose as soon as you remember it. However, if it is almost time for the next dose, skip the missed dose and continue your regular dosing schedule. Do not take a double dose to make up for a missed one. What SIDE EFFECTS can this medicine cause? Some side effects can be serious. If you experience any of these symptoms, call your doctor immediately or get emergency medical treatment: ? bleeding gums ? nosebleeds ? heavy vaginal bleeding ? red, pink, or brown urine ? red or black, tarry stools ? coughing up or vomiting blood or material that looks like coffee grounds ? swelling or joint pain ? headache ? rash ? chest pain or tightness ? swelling of the face or tongue ? trouble breathing ? wheezing ? feeling dizzy or faint Apixaban prevents blood from clotting normally, so it may take longer than usual for you to stop bleeding if you are cut or injured. This medication may also cause you to bruise or bleed more easily.Call your doctor right away if bleeding or bruising is unusual, severe, or cannot be controlled. Apixaban may cause other side effects. Call your doctor if you have any unusual problems while taking this medication. If you experience a serious side effect, you or your doctor may send a report to the Food and Drug Administration's (FDA) MedWatch Adverse Event Reporting program online (https://www.fda.gov/Safety/MedWatch) or by phone ( ). What should I know about STORAGE and DISPOSAL of this medication? Keep this medication in the container it came in, tightly closed, and out of reach of children. Store it at room temperature and away from light, excess heat and moisture (not in the bathroom). Dispose of unneeded medications in a way so that pets, children, and other people cannot take them.Do not flush this medication down the toilet. Use a medicine take-back program. Talk to your pharmacist about take-back programs in your community. Visit the FDA's Safe Disposal of Medicines website h ttps://goo.gl/c4Rm4p for more information. Keep all medication out of sight and reach of children as many containers are not child-resistant. Always lock safety caps. Place the medication in a safe location - one that is up and away and out of their sight and reach. https://www.upandaway.org What should I do in case of OVERDOSE? In case of overdose, call the poison control helpline at . Information is also available online at https://www.poisonhelp.org/help. If the victim has collapsed, had a seizure, has trouble breathing, or can't be awakened, immediately call emergency services at 911. Symptoms of overdose may include the following: ? unusual bleeding or bruising ? red, brown, or pink urine ? red or black, tarry stools ? coughing up or vomiting blood or material that looks like coffee grounds What OTHER INFORMATION should I know? Keep all appointments with your doctor. Do not let anyone else take your medication. Ask your pharmacist any questions you have about refilling your prescription. Keep a written list of all of the prescription and nonprescription (ebgi-amf-rvtlczs) medicines, vitamins, minerals, and dietary supplements you are taking. Bring this list with you each time you visit a doctor or if you are admitted to the hospital. You should carry the list with you in case of diamond rgencies. Brand Name(s): ? Eliquis?? This report on medications is for your information only, and is not considered individual patient advice. Because of the changing nature of drug information, please consult your physician or pharmacist about specific clinical use. The [employer] represents that the information provided hereunder was formulated with a reasonable standard of care, and in conformity with professional standards in the field. The [employer] makes no representations or warranties, express or implied, including, but not limited to, any implied warranty of merchantability and/or fitness for a particular purpose, with respect to such information and specifically disclaims all such warranties. Users are advised that decisions regarding drug therapy are complex medical decisions requiring the independent, informed decision of an appropriate health intensive care unit nurse, and the information is provided for informational purposes only. The entire monograph for a drug should be reviewed for a thorough understanding of the drug's actions, uses and side effects. The [employer] does not endorse or recommend the use of any drug.The information is not a substitute for medical care. AHFS?? Patient Medication Information?. ?? Copyright, 2023. The [employer]??, [address], [address], [place], [place]. All Rights Reserved. Duplication for commercial use must be authorized by [facility]. Selected Revisions: April 21, 2024. AHFS?? Patient Medication Information?. ?? Copyright, 2024 * Care Plan - Sanjuana Cooper - 10/21/2024 10:40 PM EDT Problem: Adult Inpatient Plan of Care Goal: Plan of Care Review 10/21/20242238 by Sanjuana Cooper Outcome: Ongoing, Progressing Flowsheets Taken 10/21/20242238 Outcome Evaluation: patient pain will be controlled during shift Taken 10/21/20242237 Progress: no change Plan of Care Reviewed With: patient 10/21/20242237 by Sanjuana Cooper Outcome: Ongoing, Progressing Flowsheets (Taken 10/21/20242237) Progress: no change Plan of Care Reviewed With: patient Goal: Patient-Specific Goal (Individualized) 10/21/20242238 by Sanjuana Cooper Outcome: Ongoing, Progressing 10/21/20242237 by Sanjuana Cooper Outcome: Ongoing, Progressing Flowsheets (Taken 10/21/2024 1900) Patient/Family-Specific Goals (Include Timeframe): pt. will rate pain scale 1/10 thourghout shift Individualized Care Needs: pain managemen Anxieties, Fears or Concerns: pain Goal: Absence of Hospital-Acquired Illness or Injury 10/21/20242238 by Sanjuana Cooper Outcome: Ongoing, Progressing 10/21/20242237 by Sanjuana Cooper Outcome: Ongoing, Progressing Goal: Optimal Comfort and Wellbeing 10/21/20242238 by Sanjuana Cooper Outcome: Ongoing, Progressing 10/21/20242237 by Sanjuana Cooper Outcome: Ongoing, Progressing Problem: Infection Goal: Absence of Infection Signs and Symptoms 10/21/20242238 by Sanjuana Cooper Outcome: Ongoing, Progressing 10/21/20242237 by Sanjuana Cooper Outcome: Ongoing, Progressing Intervention: Prevent or Manage Infection 10/21/20242238 by Sanjuana Cooper Flowsheets Taken 10/21/2024 1900 by Sanjuana Cooper Isolation Precautions: precautions maintained Taken 10/21/2024 1112 by Marcia Cobos RN Infection Management: aseptic technique maintained Fever Reduction/Comfort Measures: lightweight clothing lightweight bedding 10/21/20242237 by Sanjuana Cooper Flowsheets Taken 10/21/2024 1900 by Sanjuana Cooper Isolation Precautions: precautions maintained Taken 10/21/2024 1112 by Marcia Cobos RN Infection Management: aseptic technique maintained Fever Reduction/Comfort Measures: lightweight clothing lightweight bedding Problem: Pain Acute Goal: Optimal Pain Control and Function 10/21/20242238 by Sanjuana Cooper Outcome: Ongoing, Progressing 10/21/20242237 by Sanjuana Cooper Outcome: Ongoing, Progressing Intervention: Optimize Psychosocial Wellbeing 10/21/20242238 by Sanjuana Cooper Flowsheets (Taken 10/21/2024 1112 by Marcia Cobos, RN) Supportive Measures: self-care encouraged self-reflection promoted Diversional Activities: smartphone television 10/21/20242237 by Sanjuana Cooper (Taken 10/21/20241111 by Marcia Cobos, RN) Supportive Measures: self-care encouraged self-reflection promoted Diversional Activities: smartphone television Intervention: Develop Pain Management Plan 10/21/20242238 by Sanjuana Cooper (Taken 10/21/20242227) Pain Management Interventions: medication (see MAR) 10/21/20242237 by Sanjuana Cooper (Taken 10/21/20242227) Pain Management Interventions: medication (see MAR) * Care Plan - Sanjuana Cooper - 10/21/2024 10:39 PM EDT Problem: Adult Inpatient Plan of Care Goal: Plan of Care Review Outcome: Ongoing, Progressing Flowsheets (Taken 10/21/20242237) Progress: no change Plan of Care Reviewed With: patient Goal: Patient-Specific Goal (Individualized) Outcome: Ongoing, Progressing Flowsheets (Taken 10/21/20241899) Patient/Family-Specific Goals (Include Timeframe): pt. will rate pain scale 1/10 thourghout shift Individualized Care Needs: pain managemen Anxieties, Fears or Concerns: pain Goal: Absence of Hospital-Acquired Illness or Injury Outcome: Ongoing, Progressing Goal: Optimal Comfort and Wellbeing Outcome: Ongoing, Progressing Problem: Infection Goal: Absence of Infection Signs and Symptoms Outcome: Ongoing, Progressing Intervention: Prevent or Manage Infection Flowsheets Taken 10/21/20241899 by Sanjuana Cooper Isolation Precautions: precautions maintained Taken 10/21/20241111 by Marcia Cobos, RN Infection Management: aseptic technique maintained Fever Reduction/Comfort Measures: lightweight clothing lightweight bedding Problem: Pain Acute Goal: Optimal Pain Control and Function Outcome: Ongoing, Progressing Intervention: Optimize Psychosocial Wellbeing Flowsheets (Taken 10/21/20241111 by Marcia Cobos, RN) Supportive Measures: self-care encouraged self-reflection promoted Diversional Activities: smartphone television Intervention: Develop Pain Management Plan Flowsheets (Taken 10/21/20242227) Pain Management Interventions: medication (see MAR) * Progress Notes - Narinder Hammond, PharmD - 10/21/2024 8:08 PM EDT Pharmacokinetic Consult - Therapeutic Drug Monitoring HPI and Hospital Course: Moshe Maddox is a 29 y.o. male presenting after fever secondary to blood transfusion who continues on vancomycin for Streptococcus/MRSE bacteremia. Pharmacy was consulted for management of vancomycin. Levels were obtained to assess safety and efficacy of current dosing regimen. Dose History: Recent Vancomycin Admin Vancomycin HCl in NaCl (Vancocin) IVPB 1,000 mg (mg) 1,000 mg Given 10/21/24 1607 1,000 mg Given 08 1,000 mg Given 10/20/24 2354 vancomycin in NS (Vancocin) IVPB 1,500 mg (mg) 1,500 mg New Bag 10/20/24 1213 Creatinine, Plasma (mg/dL) Date/Time Value 10/21/2024 0433 0.85 10/20/2024 0442 0.81 10/19/2024 1801 0.88 Estimated Creatinine Clearance: 125 mL/min (by C-G formula based on SCr of 0.85 mg/dL). Vancomycin Pharmacokinetic Evaluation: Current Dose: 1000 mg IV Q12 hr infused over 60 min Date/Time of Most Recent Dose: 10/21/24 1607 C1 random (ug/mL): 22.5 mcg/mL C2 trough (ug/mL): 9.7 mcg/mL Vancomycin ke (hr ^-1): 0.0958 Vancomycin half-life (hr): 7.2 Cmax, actual (ug/mL): 26.78 Ctrough, actual (ug/mL): 9.34 Vancomycin Vd (L): Vancomycin Vd (L/kg): Steady state Vd : 52.117 Steady state Vd : 0.668 Vancomycin AUC 24hr (mg??hr/L): 400 Recommended TDD: 2500 mg Assessment and Recommendations: 1. Levels drawn appropriately 2. Recommend to continue with current regimen of vancomycin 1000 mg IV every 8 hours. 3) Monitor renal function (SCr and BUN) and UOP at least 2-3x/week or more frequently if renal function changes. 4) Obtain repeat vancomycin levels (trough & peak to calculate AUC) within 7 days or sooner if renal function changes. Pharmacy will continue to follow, Submitted by: Narinder Hammond PharmD 10/21/2024 8:07 PM * Progress Notes - Michael Andrade MD - 10/21/2024 2:40 PM EDT Subjective: No acute events overnight Review of Systems: Constitutional: no fevers, no weakness, no weight loss, normal appetite Cardiovascular: no chest pain, no palpitations, no edema Respiratory: no shortness of breath, no cough Gastrointestinal: no nausea, no vomiting, no diarrhea, no constipation, no abdominal pain Musculoskeletal: + back pain, + shoulder pain, + hip pain, no knee pain All other review of systems are negative. Active Medications: Current Scheduled Medications[1] Current Continuous Medications[2] Current PRN Medications[3] Objective: Visit Vitals BP 126/80 (BP Location: Left arm, Patient Position: Lying) Pulse 99 Temp 36.6 ??C (97.9 ??F) (Oral) Resp 21 Ht 1.829 m (6') Wt 78 kg (172 lb) SpO2 96% BMI 23.33 kg/m?? Smoking Status Former BSA 1.99 m?? Physical Exam: General: AOx3, no acute distress, well-nourished Cardiovascular: regular s1/s2, no murmurs, no JVD, no lower extremity edema Pulmonary: clear, no crackles, no wheezes, non-labored Abdom: normal bowel sounds, soft, non-tender, non-distended Muskuloskeletal: full RoM in BUE, full RoM in Knees, full RoM in Hips Dermatologic: no rashes, no lesions, no ulcers Labs: Lab Results Component Value Date NA 137 10/21/2024 K 4.5 10/21/2024 CL 107 10/21/2024 CO2 21 (L) 10/21/2024 BUN 9 10/21/2024 CREATININE 0.85 10/21/2024 ALT 46 10/21/2024 AST 86 (H) 10/21/2024 Lab Results Component Value Date WBC 19.52 (H) 10/21/2024 HGB 6.0 (LL) 10/21/2024 PLT 439 (H) 10/21/2024 MCV 87 10/21/2024 ASSESSMENT/PLAN: Moshe Maddox: 29yo Male PMHx Sickle Cell Disease presents after fever first noticed after blood transfusion #) Bacteremia Blood cultures (10/19) from Hand growing Streptococcus mitis/oralis group Blood Cultures (10/19) from port growing Staphylococcus coagulase negative, MecA Positive /Plan: - Empiric antibiotics (started 10/20/24) Ceftriaxone (for Strep) Vanc (for Staph) - Volume Resuscitation - LR 150mL/hr - Echo to rule out endocarditis - Repeat blood cultures - Panorex #) Sickle cell acute pain crisis #) Sickle cell anemia /Plan: - continue hydroxyurea 500mg BID, folic acid 1mg daily - Pain control Hydromorphone 2mg IV q2h PRN diphenhydramine 50mg IV q4h PRN home oxycodone 30mg q4h PRN diclofenac gel 4g QID PRN acetaminophen 650mg q8h PRN, methocarbamol 750mg QID PRN, lidoderm patch daily - Bowel Regimen senna 8.6mg daily #) Hx of multiple DVT, 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 - continue apixaban 5mg BID #) Hepatitis C HCV VL 113,695 (08/10/24) HAV Naive /Plan: - Check HBV immunity - Hepatology follow-up at discharge #) Tobacco Use Disorder (Vapes) - he declined NRT #) Fluids/Nutrition - Regular diet #) Prophylaxis - Apixaban #) Code Status FULL CODE Patient care included the following components: Complexity: a severe exacerbation or progression of 1 or more chronic illnesses or with side effects of treatment Risk: Parenteral controlled substances Michael Andrade MD PhD Division of Hospital Medicine [phone] [1] apixaban, 5 mg, Oral, BID cefTRIAXone, 2 g, Intravenous, q24h folic acid, 1 mg, Oral, Daily hydroxyurea, 500 mg, Oral, BID mupirocin, 1 Application, Each Nostril, BID senna, 1 tablet, Oral, Daily sodium chloride, 10 mL, Intravenous, q12h vancomycin, 1,000 mg, Intravenous, q8h [2] lactated Ringer's, 150 mL/hr, Last Rate: 150 mL/hr (10/21/24 0957) [3] PRN medications: acetaminophen, bisacodyl, diclofenac, diphenhydrAMINE, HYDROmorphone, methocarbamol, oxyCODONE, polyethylene glycol, Insert peripheral IV AND Saline lock IV AND sodium chloride AND sodium chloride * Care Plan - Marcia Cobos RN - 10/21/2024 11:14 AM EDT Problem: Adult Inpatient Plan of Care Goal: Plan of Care Review Outcome: Ongoing, Progressing Flowsheets (Taken 10/21/2024 1112) Progress: no change Plan of Care Reviewed With: patient Goal: Patient-Specific Goal (Individualized) Outcome: Ongoing, Progressing Flowsheets (Taken 10/21/2024 0800) Patient/Family-Specific Goals (Include Timeframe): provide pain medicaiont for pain relief throughout shift Individualized Care Needs: wharton management Anxieties, Fears or Concerns: pain Goal: Absence of Hospital-Acquired Illness or Injury Outcome: Ongoing, Progressing Goal: Optimal Comfort and Wellbeing Outcome: Ongoing, Progressing Problem: Infection Goal: Absence of Infection Signs and Symptoms Outcome: Ongoing, Progressing Intervention: Prevent or Manage Infection Flowsheets (Taken 10/21/2024 1112) Infection Management: aseptic technique maintained Fever Reduction/Comfort Measures: lightweight clothing lightweight bedding Isolation Precautions: contact Problem: Pain Acute Goal: Optimal Pain Control and Function Outcome: Ongoing, Progressing Intervention: Optimize Psychosocial Wellbeing Flowsheets (Taken 10/21/2024 1112) Supportive Measures: self-care encouraged self-reflection promoted Diversional Activities: smartphone television Intervention: Develop Pain Management Plan Flowsheets (Taken 10/21/2024 0957) Pain Management Interventions: medication (see MAR) * Care Plan - David Iniguez RN - 10/21/2024 4:17 AM EDT Problem: Adult Inpatient Plan of Care Goal: Patient-Specific Goal (Individualized) Outcome: Ongoing, Not Progressing Flowsheets (Taken 10/21/2024 0000) Patient/Family-Specific Goals (Include Timeframe): pt to report ease of pain on pain scale with Prnpain medications as needed Individualized Care Needs: cluster care, pain manangement Anxieties, Fears or Concerns: pain control Problem: Pain Acute Goal: Optimal Pain Control and Function Outcome: Ongoing, Not Progressing Intervention: Develop Pain Management Plan Flowsheets (Taken 10/21/2024 0415) Pain Management Interventions: medication (see MAR) [id number] dosing utilized care clustered emotional support pain management plan reviewed with patient/caregiver pillow support provided quiet environment facilitated Note: Pain goal not met this shift, Pt receiving PRN medications around the clock. * Progress Notes - Michael Andrade MD - 10/20/2024 5:35 PM EDT Subjective: No acute events overnight Review of Systems: Constitutional: no fevers, no weakness, no weight loss, normal appetite Cardiovascular: no chest pain, no palpitations, no edema Respiratory: no shortness of breath, no cough Gastrointestinal: no nausea, no vomiting, no diarrhea, no constipation, no abdominal pain Musculoskeletal: + back pain, + shoulder pain, + hip pain, no knee pain All other review of systems are negative. Active Medications: Current Scheduled Medications[1] Current Continuous Medications[2] Current PRN Medications[3] Objective: Visit Vitals BP 111/57 Pulse 92 Temp 36.7 ??C (98 ??F) Resp 22 Ht 1.829 m (6') Wt 78 kg (172 lb) SpO2 97% BMI 23.33 kg/m?? Smoking Status Former BSA 1.99 m?? Physical Exam: General: AOx3, no acute distress, well-nourished Cardiovascular: regular s1/s2, no murmurs, no JVD, no lower extremity edema Pulmonary: clear, no crackles, no wheezes, non-labored Abdom: normal bowel sounds, soft, non-tender, non-distended Muskuloskeletal: full RoM in BUE, full RoM in Knees, full RoM in Hips Dermatologic: no rashes, no lesions, no ulcers Labs: Lab Results Component Value Date NA 136 10/20/2024 K 3.7 10/20/2024 CL 106 10/20/2024 CO2 21 (L) 10/20/2024 BUN 11 10/20/2024 CREATININE 0.81 10/20/2024 ALT 43 10/20/2024 AST 76 (H) 10/20/2024 Lab Results Component Value Date WBC 30.20 (H) 10/20/2024 HGB 6.9 (L) 10/20/2024 PLT 398 (H) 10/20/2024 MCV 87 10/20/2024 ASSESSMENT/PLAN: Moshe Maddox: 29yo Male PMHx Sickle Cell Disease presents after fever first noticed after blood transfusion #) Bacteremia Blood cultures growing Strep and also GPCs in Clusters in 3/4 bottles /Plan: - Empiric antibiotics (started 10/20/24) Ceftriaxone (for Strep) Vanc (for possible Staph) - Volume Resuscitation - LR 150mL/hr #) Sickle cell acute pain crisis #) Sickle cell anemia /Plan: - continue hydroxyurea 500mg BID, folic acid 1mg daily - Pain control Hydromorphone 2mg IV q2h PRN diphenhydramine 50mg IV q4h PRN home oxycodone 30mg q4h PRN diclofenac gel 4g QID PRN acetaminophen 650mg q8h PRN, methocarbamol 750mg QID PRN, lidoderm patch daily - Bowel Regimen senna 8.6mg daily #) Hx of multiple DVT, 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 - continue apixaban 5mg BID #) Hepatitis C VL 113,695 (08/10/24) Hepatology follow-up at discharge #) Vapes tobacco - he declined NRT #) Fluids/Nutrition - Regular diet #) Prophylaxis - Apixaban #) Code Status FULL CODE Patient care included the following components: Complexity: acute illness or progression of a chronic illness that poses a threat to life or bodilyfunction Data: Review of at least three lab results: inflammatory markers (WBC, CRP, Procal), renal functionmarkers (Creatinine, BUN, potassium), electrolyte levels (Potassium, Magnesium, Phos, Calcium) Risk: Parenteral controlled substances Michael Andrade MD PhD Division of Hospital Medicine [phone] [1] apixaban, 5 mg, Oral, BID cefTRIAXone, 2 g, Intravenous, q24h folic acid, 1 mg, Oral, Daily hydroxyurea, 500 mg, Oral, BID mupirocin, 1 Application, Each Nostril, BID senna, 1 tablet, Oral, Daily sodium chloride, 10 mL, Intravenous, q12h vancomycin, 1,000 mg, Intravenous, q8h [2] lactated Ringer's, 150 mL/hr, Last Rate: 150 mL/hr (10/20/24 1042) [3] PRN medications: acetaminophen, bisacodyl, diclofenac, diphenhydrAMINE, HYDROmorphone, methocarbamol, oxyCODONE, polyethylene glycol, Insert peripheral IV AND Saline lock IV AND sodium chloride AND sodium chloride * Progress Notes - Narinder Hammond PharmD - 10/20/2024 9:42 AM EDT Pharmacokinetic Consult - Therapeutic Drug Monitoring HPI and Hospital Course: Moshe Maddox is a 29 y.o. male presenting with RBC exchange transfusionreaction who was started on IV vancomycin for sepsis. Pharmacy was consulted for management of vancomycin. Dose History: Recent Vancomycin Admin No antibiotic orders with administrations found. Wt Readings from Last 1 Encounters: 10/19/24 78 kg (172 lb) BMI: 23.33 kg/m?? Creatinine, Plasma (mg/dL) Date/Time Value 10/20/2024 0442 0.81 10/19/2024 1801 0.88 10/11/2024 0933 0.67 (L) Estimated Creatinine Clearance: 125 mL/min (by C-G formula based on SCr of 0.81 mg/dL). Assessment Estimated kinetic evaluation utilizing population kinetics: Vancomycin Dosing Method Vancomycin Dose Calculation Method Area under the curve (AUC) dosing General Parameters for Vancomycin Dose Calculation (AUC) Dosing Weight 78 kg (171 lb 15.3 oz) Vancomycin clearance calculation method Matzke equation Administer over 60 minutes AUC 24 hr goal (mg-hr/L) 500 mg??hr/L Estimated creatinine clearance (mL/min 125 mL/min Matzke Equation Parameters for Vancomycin Dose Calculation (AUC) Estimated vancomycin Vd (0.7 L/kg typically) 0.7 L/kg (Typical) [facility] Equation Parameters for Vancomycin Dose Calculation (AUC) Serum creatinine (mg/dL) Recommended Initial Vancomycin Dosing Estimated Ke (hr ^-1) 0.1082 hr^-1 Estimated half-life (hr) 6.41 hr Estimated vancomycin Cl (L/hr) 5.908 Recommended TDD (mg) 2954 Plan 1. Recommend initiating vancomycin 1500 mg IV x1 followed by 1000 mg IV every 8 hours to target an AUC of 400-600 based on PK data from 03/27/2024 3. Monitor renal function (Scr and BUN) and UOP at least 2-3x/week or more frequently if renal function changes. 4. Obtain vancomycin levels around the 4th dose of new regimen if therapy is to be continued. Pharmacy will continue to follow. Submitted by: Narinder Hammond PharmD 10/20/2024 9:38 AM * H&P - Malik Trent APRN - 10/19/2024 11:30 PM EDTAssociated Order(s): Consult to [facility] Images from the original note were not included. Consult to [facility] Consult performed by: Malik Trent APRN Consult ordered by: Channing Wilson MD Reason for consult: Exchange transfusion reaction Subjective Chief complaint Transfusion reaction History Of Present Illness Moshe Maddox is a 29 y.o. 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 Patient premedicated prior to initiation of 1st unit for exchange with acetaminophen and famotidine. Patient reports within 4-6 minutes after starting the acute onset of chills, palpitations, diffuseitching, and severe sharp LBP radiating up into his neck .Transfusion was stopped and diphenhydramine along with home oxycodone and 250ml NS bolus given. Symptoms persisted with 9/10 back pain and temp up to 101F, thus brought to ER for evaluation. Febrile in ED to 102.4F, tachy 100's, other VSS. Labs pertinent for WBC 32.9, Hgb stable at 7, retic count 227.3, INR 1.4, LDH 1,369. CXR no acute findings. Transfusion reaction and BCX collected. Hem advised admit for pain control and further infectious work-up. Medical/Surgical/Social/Family History Past Medical History[1] Surgical History[2] Social History[3] Family History[4] Travel History Relevant International Travel History: Travel Screening Question Response Have you been in contact with someone who was sick? No / Unsure Do you have any of the following new or worsening symptoms? None of these Have you traveled internationally or domestically in the last month? No Travel History Travel since 09/18/24 No documented travel since 09/18/24 Relevant Domestic Travel History: None Immunizations VACCINE / DOSE DATE DATE DATE DATE DATE DATE Flu 01/25/2013 12/11/2016 12/13/2017 11/24/2018 12/20/2019 03/09/2021 Tetanus 12/08/1998 08/24/2006 Pneumovax Shingles Allergies Morphine Outpatient medications in system Home Medications[5] Medications ordered for hospitalization Current Scheduled Medications[6]Non Current Continuous Medications[7] Current PRN Medications[8] Objective Review of Systems Constitutional: Positive for activity change, chills and fever. Negative for appetite change, diaphoresis and fatigue. HENT: Negative. Denies URI symptoms or sick contacts. Eyes: Negative. Respiratory: Negative for apnea, cough, shortness of breath and wheezing. Cardiovascular: Negative for chest pain, palpitations and leg swelling. Gastrointestinal: Positive for nausea. Negative for abdominal distention, abdominal pain, anal bleeding, blood in stool, constipation, diarrhea, rectal pain and vomiting. Endocrine: Negative. Genitourinary: Negative for decreased urine volume, dysuria, flank pain, frequency, hematuria, penile discharge and urgency. Musculoskeletal: Positive for arthralgias, back pain and myalgias. Negative for joint swelling, neck pain and neck stiffness. Skin: Negative. itching Allergic/Immunologic: Negative. Neurological: Positive for weakness. Negative for dizziness, syncope, light- headedness, numbness and headaches. Hematological: Negative. Psychiatric/Behavioral: Negative. Physical Exam Vitals reviewed. Constitutional: General: He is not in acute distress. Appearance: Normal appearance. HENT: Head: Normocephalic and atraumatic. Nose: Nose normal. Mouth/Throat: Lips: [place]. Mouth: Mucous membranes are moist. Dentition: No gingival swelling or dental abscesses. Tongue: No lesions. Pharynx: Oropharynx is clear. Uvula midline. Eyes: General: Scleral icterus present. Extraocular Movements: Extraocular movements intact. Conjunctiva/sclera: Conjunctivae normal. Pupils: Pupils are equal, round, and reactive to light. Cardiovascular: Rate and Rhythm: Regular rhythm. Tachycardia present. Pulses: Normal pulses. Heart sounds: Normal heart sounds. No murmur heard. No friction rub. No gallop. Pulmonary: Effort: Pulmonary effort is normal. Breath sounds: Normal breath sounds. Chest: Comments: Right anterior chest Port-a-cath accessed, DSG CDI with no drainage. Abdominal: General: Bowel sounds are normal. There is no distension. Palpations: Abdomen is soft. Tenderness: There is no abdominal tenderness. There is no right CVA tenderness, left CVA tenderness, guarding or rebound. Negative signs include Moon's sign. Musculoskeletal: Cervical back: Neck supple. Right lower leg: No edema. Left lower leg: No edema. Lymphadenopathy: Cervical: No cervical adenopathy. Skin: General: Skin is warm and dry. Capillary Refill: Capillary refill takes less than 2 seconds. Comments: Diffuse tattoos overlying chest wall Neurological: General: No focal deficit present. Mental Status: He is alert and oriented to person, place, and time. Psychiatric: Mood and Affect: Mood normal. Behavior: Behavior normal. Behavior is cooperative. Last Recorded Vitals Blood pressure 118/78, pulse 86, temperature 36.9 ??C (98.4 ??F), temperature source Oral, resp. rate 11, height 1.829 m (6'), weight 78 kg (172 lb), SpO2 100%. Results Review I have reviewed the latest lab and imaging results. Assessment & Plan Blood transfusion reaction, initial encounter Acute RBC exchange transfusion reaction and/or SIRS Sickle cell acute pain crisis Sickle cell anemia - 10/04/24 port-a-cath placement - febrile to 102.4F, tachy, WBC 32 - Tbili 3.6 - AST 110 and LDH 1,369 (both hemolyzed) - CXR no acute findings PLAN - avoid further transfusion tonight (Hgb 7.0) - BCX, CRP, procalcitonin, UA, UCX, UDS pending - COVID-19 PCR, Nasopharyngeal PCR pending - hold empiric abx pending Cx unless change in HDS - supplemental O2, encourage IS - LR@75 ml/hr - continue hydroxyurea 500mg BID, folic acid 1mg daily - multimodal pain control: -- dilaudid 2mg IV q4h PRN, diphenhydramine 50mg IV q4h PRN, and home oxycodone 30mg q4h PRN, senna8.6mg daily -- diclofenac gel 4g QID PRN, acetaminophen 650mg q8h PRN, methocarbamol 750mg QID PRN, lidoderm patch daily - consult Hem-Onc in AM ---Chronic/Stable Conditions--- Hx of multiple DVT, 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 - continue apixaban 5mg BID HCV - Ab Positive (01/22/24), VL 113,695 (08/10/24); Hepatology follow-up at discharge Essential HTN - no home meds, trend BP Vapes tobacco - he declined NRT Venous thromboembolism prophylaxis - Patient on Apixaban. 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 Bloodstream infection due to central venous catheter, initial encounter 08/25/2024 Collapsed vertebra, not elsewhere classified, thoracic region, initial encounter for fracture (CMS/HCC) 08/14/2024 Epididymo-orchitis 04/26/2024 Hepatitis B Hepatitis C History of DVT (deep vein thrombosis) 11/24/2023 Hypertension Sickle cell anemia Streptococcal sepsis, unspecified (CMS/HCC) 08/18/2024 Stroke (CMS/HCC) [2] Past Surgical History: Procedure Laterality Date CHOLECYSTECTOMY INCISION AND DRAINAGE, SKIIN ABCESS N/A PORTACATH PLACEMENT multiple since removed TONSILLECTOMY W/ ADENOIDECTOMY [3] Social History Tobacco Use Smoking status: Former Current packs/day: 0.00 Average packs/day: 0.3 packs/day for 3.0 years (0.8 ttl pk-yrs) Types: Cigarettes Start date: 2012 Quit date: 2015 Years since quittin.6 Passive exposure: Past Smokeless tobacco: Never Vaping Use Vaping status: Never Used Substance Use Topics Alcohol use: Never Drug use: Never [4] Family History Problem Relation Name Age of Onset No Known Problems Mother Sickle cell anemia Niece [5] (Not in a hospital admission) [6] apixaban, 5 mg, Oral, BID folic acid, 1 mg, Oral, Daily hydroxyurea, 500 mg, Oral, BID senna, 1 tablet, Oral, Daily sodium chloride, 10 mL, Intravenous, q12h [7] lactated Ringer's, 75 mL/hr, Last Rate: 75 mL/hr (10/20/24 0451) [8] PRN medications: acetaminophen, bisacodyl, diclofenac, methocarbamol, oxyCODONE, polyethylene glycol, Insert peripheral IV AND Saline lock IV AND sodium chloride AND sodium chloride * Significant Event - Darryn Lopez MD - 10/19/2024 9:14 PM EDT Mr. Maddox is a 29 year old male with sickle cell disease who underwent exchange transfusion today resulting in a non-hemolytic febrile transfusion reaction. Advised to go the ED due to high infectionrisk, poor pain control, and anti- pyretics. See note from Dr. Fitzgerald for further details. Continuedto be in severe pain in the ED, fever has broken. HDS. Recommend admission for more aggressive paincontrol. Hgb is 7.0, would avoid further transfusion tonight. Continue supportive care with pain control, gentle IV fluids, and infectious workup. Formal consult to follow. * Care Plan - Carolina Reich RN - 10/19/2024 4:51 PM EDT Problem: Adult Inpatient Plan of Care Goal: Plan of Care Review Outcome: Ongoing, Progressing Flowsheets (Taken 10/20/2024 1027) Progress: improving Plan of Care Reviewed With: patient Goal: Patient-Specific Goal (Individualized) Outcome: Ongoing, Progressing Flowsheets (Taken 10/20/2024 1027) Patient/Family-Specific Goals (Include Timeframe): Patient will have adequate pain control with prnpain medication around the clock on 10/20/24 Individualized Care Needs: Pain management Anxieties, Fears or Concerns: Pain Goal: Absence of Hospital-Acquired Illness or Injury Outcome: Ongoing, Progressing Goal: Optimal Comfort and Wellbeing Outcome: Ongoing, Progressing * ED Provider Notes - Willis Shepard MD - 10/19/2024 4:51 PM EDT - HPI Chief Complaint Patient presents with Medication Reaction [facility] Note: Mohse Maddox is a 29 y.o. male with PMH of sickle cell anemia, stroke, hypertension and prior DVT who presents to the ED with medication reaction. Pt arrives from outpatient apheresis after he began having severe pain and fever while having a red blood cell exchange. He reports he has had a reaction to cell exchange in the past but not this severe. He reports he feels lightheaded and near-syncopal currently. He describes pain as sharp shooting pain in his back radiating into his neck. He reports last dose of Tylenol was at 1200. He denies headache, cough, nausea, chest pain or shortness ofbreath. Pt has no other complaints at this time. Of note, pt is febrile at 102.4F per triage vitals. MAIN ED NOTE//Willis Shepard MD: I assumed full responsibility for this patient after transfer to Main ED from [facility]. I personally performed my own history, ROS, and physical. I agree with the above [facility] documentation with the following additions/exceptions: History provided by: Patient director of clinical education used: No Patient History Past Medical History[1] Surgical History[2] Family History[3] Social History[4] Allergies: Allergies[5] Physical Exam ED Triage Vitals [10/19/24 1656] Temp Heart Rate Resp BP (!) 39.1 ??C (102.4 ??F) 109 20 121/79 SpO2 Temp Source Heart Rate Source Patient Position 99 % Oral -- Sitting BP Location FiO2 (%) Right arm -- Physical Exam Constitutional: General: He is not in acute distress. Appearance: He is ill-appearing. Comments: Port in right upper chest HENT: Head: Normocephalic. Comments: No facial swelling Mouth/Throat: Mouth: Mucous membranes are moist. Pharynx: Oropharynx is clear. Eyes: Pupils: Pupils are equal, round, and reactive to light. Cardiovascular: Rate and Rhythm: Normal rate. Pulmonary: Effort: Pulmonary effort is normal. No respiratory distress. Breath sounds: Normal air entry. Comments: Speaking full sentences. Symmetric chest rise Abdominal: General: There is no distension. Musculoskeletal: General: No deformity. Normal range of motion. Cervical back: Normal range of motion. Comments: Atraumatic, moves all extremities spontaneously Skin: General: Skin is warm. Capillary Refill: Capillary refill takes less than 2 seconds. Neurological: General: No focal deficit present. Mental Status: He is alert and oriented to person, place, and time. Mental status is at baseline. Comments: Awake Psychiatric: Behavior: Behavior normal. Kaitlyn Coma Scale Score: 15 ED Course & MDM - Assessment: 29 y.o. male presents to ED with complaint of transfusion reaction. It should be noted that the chronic conditions includes sickle cell anemia, hypertension, prior DVT, which currently is not at goaltherapy. This complicates the clinical picture because it Comorbidities: increases the amount and complexity of data to be reviewed Differential Diagnosis: Sickle cell pain crisis, transfusion reaction, sepsis In order to fully explore the differential diagnosis the following treatments and tests were ordered: All Other Orders Ordered Status Ordering Provider 10/19/241657 EKG now - STAT (adult) Once Preliminary result PILAR THOMAS ED Course as of 10/19/242256Oct 19, 20241936 Hemoglobin(!): 7.0 Low, consulting hematology [SW] 1937 Total Bilirubin, Plasma(!): 3.4 Elevated, possible hemolysis [SW] 194 No acute pathology including effusion, fracture, or pneumothorax [SW] 1947 Afebrile, HR decreasing after pain control, antipyretics, and fluids [SW] ED Course User Index [SW] Willis Shepard MD Patient's initial lab work significant for elevated white count and hemoglobin of 7. Hematology wasconsulted for recommendations on transfusion management. They recommended not to transfuse at this time given the acuity of his reaction. We will continue to monitor. Report LDH and bilirubin were elevated although close to patient's baseline. Chest x-ray was negative for any acute findings, lungs were clear bilaterally. After resuscitation with fluids as well as multiple rounds of pain medication and antipyretics patient was afebrile however he still endorsed being in severe pain. Hospital admission team consulted for management of an acute pain crisis and transfusion reaction. Social Determinates of Health Risks (including Economic Stability, Education and level of understanding, Healthcare access and quality and concerning social factors): Poor health literacy Ultimately, this patient was was signed out to the oncoming provider (Signed Out) Patient care assumed by oncoming provider, Katie, at shift change, tentative plan at the time of sign-out was admit to inpatient for pain control ED Prescriptions None - 10/19/2024, 5:17 PM Scribe Attestation: This note was dictated to me, Dylan Damon, acting as a scribe for Dr. Pilar Thomas M.D. Attending Attestation: This documentation was recorded by Dylan Damon acting as a scribe in my presence at the time of the encounter and accurately reflects the service I personally performed and thedecisions made by me. 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 Epididymo-orchitis 04/26/2024 Hepatitis B Hepatitis C History of DVT (deep vein thrombosis) Hypertension Sickle cell anemia Stroke (CMS/HCC) [2] Past Surgical History: Procedure Laterality Date CHOLECYSTECTOMY INCISION AND DRAINAGE, SKIIN ABCESS N/A PORTACATH PLACEMENT multiple since removed TONSILLECTOMY W/ ADENOIDECTOMY [3] Family History Problem Relation Name Age of Onset No Known Problems Mother Sickle cell anemia Niece [4] Tobacco Use Smoking status: Former Current packs/day: 0.00 Average packs/day: 0.3 packs/day for 3.0 years (0.8 ttl pk-yrs) Types: Cigarettes Start date: 2012 Quit date: 2016 Years since quittin.6 Passive exposure: Past Smokeless tobacco: Never Vaping Use Vaping status: Never Used Substance Use Topics Alcohol use: Never Drug use: Never [5] Allergies Allergen Reactions Morphine Hives Willis Shepard MD Resident 10/19/24 [id number] Cosigned by Channing Wilson MD at 10/25/2024 8:26 AM EDT Associated attestation - Channing Wilson MD - 10/25/2024 8:26 AM EDT I saw and evaluated the patient with the resident/fellow. I discussed the case with the resident/fellow and agree with the findings and plan as documented. * ED Triage Notes - Alisa Rod RN - 10/19/2024 4:51 PM EDT Patient coming from outpatient apheresis. was there for a red blood cell exchange. hx of reaction in the past. a few minutes into it he had extreme pain, fever 101F documented in this encounter Plan of Treatment Upcoming Encounters Date Type Department Care Team (Late st Contact Info) Description 12/19/2024 8:00 AM EDT [facility] [address] [place] [address] 12/25/2024 1:30 PM EDT Appointment [facility] Interventional Radiology [address] [place] [address] Pending Results Name Type Priority Associated Diagnoses Date /Time Prepare Leukocyte Reduced RBC Blood Bank Routine 10/24/2024 11:56 AM EDT Scheduled Orders Name Type Priority Associated Diagnoses Orde r Schedule Basic metabolic panel Lab Routine Blood transfusion reaction, initial encounter Expected: 11/09/2024 (Approximate), Expires: 05/04/2026 CBC and differential Lab Routine Blood transfusion reaction, initial encounter Expected: 11/09/2024 (Approximate), Expires: 05/04/2026 Magnesium Lab Routine Blood transfusion reaction, initial encounter Expected: 11/09/2024 (Approximate), Expires: 05/04/2026 Phosphorus Lab Routine Blood transfusion reaction, initial encounter Expected: 11/09/2024 (Approximate), Expires: 05/04/2026 Creatine Kinase (CK), Total Lab Routine Blood transfusion reaction, initial encounter Expected: 11/09/2024 (Approximate), Expires: 05/04/2026 Vancomycin, random Lab Routine Blood transfusion reaction, initial encounter Expected: 11/05/2024 (Approximate), Expires: 05/04/2026 Basic metabolic panel Lab Routine Blood transfusion reaction, initial encounter Expected: 11/05/2024 (Approximate), Expires: 05/04/2026 CBC and differential Lab Routine Blood transfusion reaction, initial encounter Expected: 11/05/2024 (Approximate), Expires: 05/04/2026 Magnesium Lab Routine Blood transfusion reaction, initial encounter Expected: 11/05/2024 (Approximate), Expires: 05/04/2026 Phosphorus Lab Routine Blood transfusion reaction, initial encounter Expected: 11/05/2024 (Approximate), Expires: 05/04/2026 Scheduled Referrals Name Type Priority Associated Diagnoses Order Schedule Ambulatory referral to Gastroenterology Outpatient Referral Routine Blood transfusion reaction, initial encounter 1 Occurrences starting 10/28/2024 until 05/01/2026 Discharge Ambulatory referral to [facility] Outpatient Referral Routine Blood transfusion reaction, initial encounter 1 Occurrences starting 11/02/2024 until 05/06/2026 Discharge Ambulatory referral to [facility] Outpatient Referral Routine Blood transfusion reaction, initial encounter Expected: 11/09/2024, Expires: 05/06/2026 documented as of this encounter Procedures Procedure Name Priority Date/Time Associated Diagnosis Comments PROCALCITONIN, PLASMA Routine 11/02/2024 5:23 AM EDT SEDIMENTATION RATE, AUTOMATED Routine 11/02/2024 5:23 AM EDT CBC WITH AUTO DIFFERENTIAL Routine 11/02/2024 5:23 AM EDT C-REACTIVE PROTEIN, PLASMA Routine 11/02/2024 5:23 AM EDT PHOSPHORUS, PLASMA Routine 11/02/2024 5: 23 AM EDT MAGNESIUM, PLASMA Routine 11/02/2024 5:2 3 AM EDT BASIC METABOLIC PANEL, PLASMA Routine 11/02/2024 5:23 AM EDT HEMOGLOBIN AND HEMATOCRIT, BLOOD Routine 11/01/2024 6:42 PM EDT TRANSFUSE RED BLOOD CELLS Routine 11/01/2024 11:22 AM EDT TYPE AND SCREEN Routine 11/01/2024 10:04 AM EDT PREPARE RBC Routine 11/01/2024 9:20 AM EDT PROCALCITONIN, PLASMA Routine 11/01/2024 2:06 AM EDT SEDIMENTATION RATE, AUTOMATED Routine 11/01/2024 2:06 AM EDT CBC WITH AUTO DIFFERENTIAL Routine 11/01/2024 2:06 AM EDT C-REACTIVE PROTEIN, PLASMA Routine 11/01/2024 2:06 AM EDT PHOSPHORUS, PLASMA Routine 11/01/2024 2: 06 AM EDT MAGNESIUM, PLASMA Routine 11/01/2024 2:0 6 AM EDT BASIC METABOLIC PANEL, PLASMA Routine 11/01/2024 2:06 AM EDT PROCALCITONIN, PLASMA Routine 10/31/2024 5:31 AM EDT SEDIMENTATION RATE, AUTOMATED Routine 10/31/2024 5:31 AM EDT CBC WITH AUTO DIFFERENTIAL Routine 10/31/2024 5:31 AM EDT C-REACTIVE PROTEIN, PLASMA Routine 10/31/2024 5:31 AM EDT PHOSPHORUS, PLASMA Routine 10/31/2024 5: 31 AM EDT MAGNESIUM, PLASMA Routine 10/31/2024 5:3 1 AM EDT VANCOMYCIN, RANDOM, PLASMA Routine 10/31/2024 5:31 AM EDT VANCOMYCIN, RANDOM, PLASMA Routine 10/31/2024 5:31 AM EDT BASIC METABOLIC PANEL, PLASMA Routine 10/31/2024 5:31 AM EDT PROCALCITONIN, PLASMA Routine 10/30/2024 6:10 AM EDT SEDIMENTATION RATE, AUTOMATED Routine 10/30/2024 6:10 AM EDT CBC WITH AUTO DIFFERENTIAL Routine 10/30/2024 6:10 AM EDT C-REACTIVE PROTEIN, PLASMA Routine 10/30/2024 6:10 AM EDT PHOSPHORUS, PLASMA Routine 10/30/2024 6: 10 AM EDT MAGNESIUM, PLASMA Routine 10/30/2024 6:1 0 AM EDT BASIC METABOLIC PANEL, PLASMA Routine 10/30/2024 6:10 AM EDT PROCALCITONIN, PLASMA Routine 10/29/2024 6:12 AM EDT SEDIMENTATION RATE, AUTOMATED Routine 10/29/2024 6:12 AM EDT CBC WITH AUTO DIFFERENTIAL Routine 10/29/2024 6:12 AM EDT C-REACTIVE PROTEIN, PLASMA Routine 10/29/2024 6:12 AM EDT PHOSPHORUS, PLASMA Routine 10/29/2024 6: 12 AM EDT MAGNESIUM, PLASMA Routine 10/29/2024 6:1 2 AM EDT VANCOMYCIN, RANDOM, PLASMA Routine 10/29/2024 6:12 AM EDT BASIC METABOLIC PANEL, PLASMA Routine 10/29/2024 6:12 AM EDT BLOOD CULTURE (AEROBIC/ANAEROBIC SET) Routine 10/28/2024 10:15 AM EDT BLOOD CULTURE (AEROBIC/ANAEROBIC SET) Routine 10/28/2024 8:31 AM EDT PROCALCITONIN, PLASMA Routine 10/27/2024 5:19 AM EDT SEDIMENTATION RATE, AUTOMATED Routine 10/27/2024 5:19 AM EDT CBC WITH AUTO DIFFERENTIAL Routine 10/27/2024 5:19 AM EDT C-REACTIVE PROTEIN, PLASMA Routine 10/27/2024 5:19 AM EDT PHOSPHORUS, PLASMA Routine 10/27/2024 5: 19 AM EDT VANCOMYCIN, RANDOM, PLASMA Routine 10/27/2024 5:19 AM EDT BASIC METABOLIC PANEL, PLASMA Routine 10/27/2024 5:19 AM EDT BLOOD CULTURE (AEROBIC/ANAEROBIC SET) Routine 10/27/2024 4:18 AM EDT WOUND CULTURE AND GRAM STAIN Routine 10/26/2024 2:23 PM EDT BLOOD CULTURE (AEROBIC/ANAEROBIC SET) Routine 10/26/2024 2:22 PM EDT PROCALCITONIN, PLASMA Routine 10/26/2024 4:03 AM EDT SEDIMENTATION RATE, AUTOMATED Routine 10/26/2024 4:03 AM EDT CBC WITH AUTO DIFFERENTIAL Routine 10/26/2024 4:03 AM EDT C-REACTIVE PROTEIN, PLASMA Routine 10/26/2024 4:03 AM EDT PHOSPHORUS, PLASMA Routine 10/26/2024 4: 03 AM EDT BASIC METABOLIC PANEL, PLASMA Routine 10/26/2024 4:03 AM EDT VANCOMYCIN, PEAK, PLASMA Routine 10/25/2024 11:23 AM EDT VANCOMYCIN, TROUGH, PLASMA Routine 10/25/2024 7:50 AM EDT PROCALCITONIN, PLASMA Routine 10/25/2024 6:20 AM EDT SEDIMENTATION RATE, AUTOMATED Routine 10/25/2024 6:20 AM EDT CBC WITH AUTO DIFFERENTIAL Routine 10/25/2024 6:20 AM EDT C-REACTIVE PROTEIN, PLASMA Routine 10/25/2024 6:20 AM EDT PHOSPHORUS, PLASMA Routine 10/25/2024 6: 20 AM EDT BASIC METABOLIC PANEL, PLASMA Routine 10/25/2024 6:20 AM EDT PREPARE RBC Routine 10/24/2024 11:56 AM EDT BACTERIAL ID GRAM POSITIVE Routine 10/24/2024 10:37 AM EDT BLOOD CULTURE (AEROBIC/ANAEROBIC SET) STAT 10/24/2024 10:37 AM EDT ECHO, ADULT TRANSTHORACIC LIMITED W/ COLOR AND DOPPLER Routine 10/24/2024 10:22 AM EDT PROCALCITONIN, PLASMA Routine 10/24/2024 6:29 AM EDT SEDIMENTATION RATE, AUTOMATED Routine 10/24/2024 6:29 AM EDT CBC WITH AUTO DIFFERENTIAL Routine 10/24/2024 6:29 AM EDT C-REACTIVE PROTEIN, PLASMA Routine 10/24/2024 6:29 AM EDT PHOSPHORUS, PLASMA Routine 10/24/2024 6: 29 AM EDT HEPATIC FUNCTION PANEL Routine 6:29 AM EDT BASIC METABOLIC PANEL, PLASMA Routine 10/24/2024 6:29 AM EDT BLOOD CULTURE (AEROBIC/ANAEROBIC SET) STAT 10/23/2024 4:45 PM EDT CYSTATIN C Routine 10/23/2024 6:14 AM EDT CBC W/O DIFFERENTIAL Routine 10/23/2024 6:14 AM EDT C-REACTIVE PROTEIN, PLASMA Routine 10/23/2024 6:14 AM EDT PHOSPHORUS, PLASMA Routine 10/23/2024 6: 14 AM EDT MAGNESIUM, PLASMA Routine 10/23/2024 6:1 4 AM EDT COMPREHENSIVE METABOLIC PANEL, PLASMA Routine 10/23/2024 6:14 AM EDT TRANSFUSE RED BLOOD CELLS Routine 10/22/2024 3:15 PM EDT TYPE AND SCREEN Routine 10/22/2024 12:54 PM EDT PREPARE RBC Routine 10/22/2024 12:14 PM EDT HEPATITIS B SURFACE ANTIBODY, QUANTITATIVE Routine 10/22/2024 5:16 AM EDT BACTERIAL ID GRAM POSITIVE Routine 10/22/2024 5:16 AM EDT CYSTATIN C Routine 10/22/2024 5:16 AM EDT HEPATITIS B CORE TOTAL AB (IGG AND IGM) Routine 10/22/2024 5:16 AM EDT BLOOD CULTURE (AEROBIC/ANAEROBIC SET) Routine 10/22/2024 5:16 AM EDT CBC W/O DIFFERENTIAL Routine 10/22/2024 5:16 AM EDT C-REACTIVE PROTEIN, PLASMA Routine 10/22/2024 5:16 AM EDT PHOSPHORUS, PLASMA Routine 10/22/2024 5: 16 AM EDT MAGNESIUM, PLASMA Routine 10/22/2024 5:1 6 AM EDT COMPREHENSIVE METABOLIC PANEL, PLASMA Routine 10/22/2024 5:16 AM EDT VANCOMYCIN, PEAK, PLASMA Timed 10/21/2024 6:56 PM EDT VANCOMYCIN, TROUGH, PLASMA Timed 10/21/2024 3:43 PM EDT XR PANOREX Routine 10/21/2024 3:31 PM EDT TRANSFUSE RED BLOOD CELLS Routine 10/21/2024 5:53 AM EDT CYSTATIN C Routine 10/21/2024 4:33 AM EDT CBC W/O DIFFERENTIAL Routine 10/21/2024 4:33 AM EDT C-REACTIVE PROTEIN, PLASMA Routine 10/21/2024 4:33 AM EDT PHOSPHORUS, PLASMA Routine 10/21/2024 4: 33 AM EDT MAGNESIUM, PLASMA Routine 10/21/2024 4:3 3 AM EDT COMPREHENSIVE METABOLIC PANEL, PLASMA Routine 10/21/2024 4:33 AM EDT OXYCODONE CONFIRMATION,URINE Routine 10/20/2024 8:52 PM EDT OPIATES, LCMSMS, URINE Routine 8:52 PM EDT DRUG ABUSE SCREEN, URINE Routine 10/20/2024 8:52 PM EDT LACTATE, VENOUS Routine 10/20/2024 4:42 AM EDT PROTHROMBIN TIME(PT) / INR Routine 10/20/2024 4:42 AM EDT CBC WITH AUTO DIFFERENTIAL Routine 10/20/2024 4:42 AM EDT C-REACTIVE PROTEIN, PLASMA STAT Add-on 10/20/2024 4:42 AM EDT PHOSPHORUS, PLASMA Routine 10/20/2024 4: 42 AM EDT MAGNESIUM, PLASMA Routine 10/20/2024 4:4 2 AM EDT DIRECT BILIRUBIN, PLASMA Routine 10/20/2024 4:42 AM EDT COMPREHENSIVE METABOLIC PANEL, PLASMA Routine 10/20/2024 4:42 AM EDT SARS COV-2/COVID-19 BY PCR - RAPID Routine 10/20/2024 3:10 AM EDT NASOPHARYNGEAL RESPIRATORY PANEL STAT 10/20/2024 3:10 AM EDT MULTI DRUG RESISTANCE TEST Routine 10/20/2024 3:10 AM EDT URINALYSIS WITH REFLEX MICROSCOPIC AND CULTURE Timed 10/20/2024 2:31 AM EDT URINE HERNANDEZ PANEL Timed 10/20/2024 2:31 AM EDT PAIN MANAGEMENT, QUANTITATIVE URINE DRUG TESTING STAT 10/20/2024 2:31 AM EDT PAIN MANAGEMENT, QUANTITATIVE URINE DRUG TESTING STAT 10/20/2024 2:31 AM EDT COMPREHENSIVE URINE DRUG SCREENING,QUALITATIVE ASSAY, >= 27 DRUG CLASSES STAT 10/20/2024 2:31 AM EDT URINALYSIS WITH REFLEX MICROSCOPIC Timed 10/20/2024 2:31 AM EDT BACTERIAL ID GRAM POSITIVE Routine 10/19/2024 9:04 PM EDT BLOOD CULTURE (AEROBIC/ANAEROBIC SET) STAT 10/19/2024 9:04 PM EDT BACTERIAL ID GRAM POSITIVE Routine 10/19/2024 7:55 PM EDT BLOOD CULTURE (AEROBIC/ANAEROBIC SET) STAT 10/19/2024 7:55 PM EDT HAPTOGLOBIN, SERUM STAT 10/19/2024 7: 36 PM EDT MORPHOLOGY STAT 10/19/2024 6:20 PM EDT RETICULOCYTES, BLOOD STAT 10/19/2024 6:20 PM EDT CBC WITH AUTO DIFFERENTIAL STAT 10/19/2024 6:20 PM EDT EXTRA TUBE LIGHT GREEN TOP Routine 10/19/2024 6:09 PM EDT EXTRA TUBE LIGHT BLUE TOP Routine 10/19/2024 6:09 PM EDT EXTRA TUBES Routine 10/19/2024 6:09 PM EDT APTT STAT Add-on 10/19/2024 6:09 PM EDT PROTHROMBIN TIME(PT) / INR STAT Add-on 10/19/2024 6:09 PM EDT PROCALCITONIN, PLASMA Add-On 10/19/2024 6:01 PM EDT LACTATE DEHYDROGENASE, PLASMA STAT Add-on 10/19/2024 6:01 PM EDT COMPREHENSIVE METABOLIC PANEL, PLASMA STAT 10/19/2024 6:01 PM EDT XR CHEST 1 VIEW STAT 10/19/2024 5:45 PM EDT ECG ADULT STAT 10/19/2024 5:03 PM EDT documented in this encounter Results * (ABNORMAL) Magnesium, Plasma (11/02/2024 5:23 AM EDT) Magnesium, Plasma 1.8(L) 1.9 - 2.4 mg/dL 11/02/2024 6:[address] [facility] Blood Venous blood specimen / Unknown Venipuncture / Unknown 11/02/2024 5:23 AM EDT 11/02/2024 5:37 AM EDT us Saw Solano MD LAB BLOOD ORDERABLES Final Res ult [facility] [address] [place] [address] * (ABNORMAL) Sedimentation Rate, Automated (11/02/2024 5:23 AM EDT) Sedimentation Rate 21(H) <15 mm/hr 2024 5:[address] [facility] Blood Venous blood specimen / Unknown Venipuncture / Unknown 11/02/2024 5:23 AM EDT 11/02/2024 5:37 AM EDT us Saw Solano MD LAB BLOOD ORDERABLES Final Res ult Performing Organization Address [facility] Co de Phone Number [facility] [address] [place] [address] * (ABNORMAL) Procalcitonin, Plasma (11/02/2024 5:23 AM EDT) Procalcitonin, Plasma 0.48(H) <0.09 ng/mL 11/02/2024 6:[address] [facility] Blood Venous blood specimen / Unknown Venipuncture / Unknown 11/02/2024 5:23 AM EDT 11/02/2024 5:[address] [facility] - 11/02/2024 6:13 AM EDT Procalcitonin concentrations in healthy individuals are <0.09 ng/mL. Published data support the following interpretive risk assessment: An elevated procalcitonin result does not always indicate sepsis. Various non-infectious conditions are known to increase procalcitonin. Results should be considered in the context of clinical symptoms and other laboratory tests. Procalcitonin >2.0 ng/mL: Concentrations >2.0 ng/mL on the first day of ICU admission are associated with a higher risk of progression to severe sepsis and/or septic shock. The change in PCT over time may help predict 28 day mortality risk. Please consult [email or web address] for more information. Test performed at [facility], [facility] Laboratory. us Saw Solano MD LAB BLOOD ORDERABLES Final Res ult Performing Organization Address [facility]/ZIP Co de Phone Number [facility] [address] [place] [address] * (ABNORMAL) Phosphorus, Plasma (11/02/2024 5:23 AM EDT) Phosphorus, Plasma 4.7(H) 2.5 - 4.5 mg/dL 11/02/2024 6:[address] [facility] Blood Venous blood specimen / Unknown Venipuncture / Unknown 11/02/2024 5:23 AM EDT 11/02/2024 5:37 AM EDT us Saw Solano MD LAB BLOOD ORDERABLES Final Res ult [facility] [address] [place] [address] * (ABNORMAL) CBC and Differential (11/02/2024 5:23 AM EDT) Pathologist [facility] WBC Count 9.07 3.70 - 10.30 10*3/uL LAB HEMATOLOGY METHOD 11/02/2024 5:[address] [facility] RBC Count 2.52(L) 4.60 - 6.10 10*6/uL LAB HEMATOLOGY METHOD 11/02/2024 5:[address] [facility] HGB 7.5(L) 13.7 - 17.5 g/dL LAB HEMATOLOGY METHOD 11/02/2024 5:[address] [facility] HCT 22.8(L) 40.0 - 51.0 % LAB HEMATOLOGY METHOD 11/02/2024 5:[address] [facility] Platelet Count 314 155 - 369 10*3/uL LAB HEMATOLOGY METHOD 11/02/2024 5:[address] [facility] MCV 91 79 - 98 fL LAB HEMATOLOGY METHOD 11/02/2024 5:[address] [facility] MCH 29.8 26.0 - 32.0 pg LAB HEMATOLOGY METHOD 11/02/2024 5:[address] [facility] MCHC 32.9 30.7 - 35.5 g/dL LAB HEMATOLOGY METHOD 11/02/2024 5:[address] [facility] RDW 18.0(H) 11.5 - 14.5 % LAB HEMATOLOGY METHOD 11/02/2024 5:[address] [facility] MPV 8.8 8.8 - 12.5 fL LAB HEMATOLOGY METHOD 11/02/2024 5:[address] [facility] nRBC 0.6(H) <=0.0 per 100 WBCs LAB HEMATOLOGY METHOD 11/02/2024 5:[address] [facility] Differential Type Automated LAB HEMATOLOGY METHOD 11/02/2024 5:[address] [facility] Neutrophils % 56 % LAB HEMATOLOGY METHOD 11/02/2024 5:[address] [facility] Lymphocytes % 30 % LAB HEMATOLOGY METHOD 11/02/2024 5:[address] [facility] Monocytes % 9 % LAB HEMATOLOGY METHOD 11/02/2024 5:[address] [facility] Eosinophils % 4 % LAB HEMATOLOGY METHOD 11/02/2024 5:[address] [facility] Basophils % 1 % LAB HEMATOLOGY METHOD 11/02/2024 5:[address] [facility] Immature Granulocytes % 0 % LAB HEMATOLOGY METHOD 11/02/2024 5:[address] [facility] Neutrophils Absolute 5.01 1.60 - 6.10 10*3/uL LAB HEMATOLOGY METHOD 11/02/2024 5:[address] [facility] Lymphocytes Absolute 2.72 1.20 - 3.90 10*3/uL LAB HEMATOLOGY METHOD 11/02/2024 5:[address] [facility] Monocytes Absolute 0.80 0.30 - 0.90 10*3/uL LAB HEMATOLOGY METHOD 11/02/2024 5:[address] [facility] Eosinophils Absolute 0.38 0.00 - 0.50 10*3/uL LAB HEMATOLOGY METHOD 11/02/2024 5:[address] [facility] Basophils Absolute 0.13(H) 0.00 - 0.10 10*3/uL LAB HEMATOLOGY METHOD 11/02/2024 5:[address] [facility] Immature Granulocytes Absolute 0.03 0.00 - 0.06 10*3/uL LAB HEMATOLOGY METHOD 11/02/2024 5:[address] [facility] Blood Venous blood specimen / Unknown Venipuncture / Unknown 11/02/2024 5:23 AM EDT 11/02/2024 5:[address] [facility] - 11/02/2024 5:45 AM EDT Therapeutic decision making should be based on absolute values, rather than percentages. us Saw Solano MD LAB BLOOD ORDERABLES Final Res ult Performing Organization Address [facility] Co de Phone Number [facility] [address] [place] [address] * C-Reactive Protein, Plasma (11/02/2024 5:23 AM EDT) CRP, Plasma 7.7 <=8.0 mg/L 11/02/2024 6:[address] [facility] Blood Venous blood specimen / Unknown Venipuncture / Unknown 11/02/2024 5:23 AM EDT 11/02/2024 5:[address] [facility] - 11/02/2024 6:13 AM EDT This CRP test is appropriate for assessment of infection, systemic inflammation and/or tissue injury. To assess cardiovascular disease risk order high sensitivity CRP (CRPH). us Saw Solano MD LAB BLOOD ORDERABLES Final Res ult Performing Organization Address [facility] Co de Phone Number [facility] [address] [place] [address] * (ABNORMAL) Basic Metabolic Panel, Plasma (11/02/2024 5:23 AM EDT) Glucose, Plasma 93 74 - 99 mg/dL 11/02/2024 6:[address] [facility] BUN, Plasma 13 7 - 21 mg/dL 11/02/2024 6:[address] [facility] Creatinine, Plasma 0.91 0.70 - 1.20 mg/dL 11/02/2024 6:[address] [facility] BUN/Creatinine Ratio 14 11/02/2024 6:[address] [facility] Sodium, Plasma 137 136 - 145 mmol/L 11/02/2024 6:[address] [facility] Potassium, Plasma 4.5 3.6 - 4.9 mmol/L 11/02/2024 6:[address] [facility] Chloride, Plasma 105 97 - 107 mmol/L 11/02/2024 6:[address] [facility] CO2, Plasma 22 22 - 29 mmol/L 11/02/2024 6:[address] [facility] Anion Gap 10 6 - 16 mmol/L 11/02/2024 6:[address] [facility] Total Calcium, Plasma 8.0(L) 8.9 - 10.2 mg/dL 11/02/2024 6:[address] [facility] eGFRcr 116.3 mL/min/1.7 3m*2 11/02/2024 6:[address] [facility] Comment:Reported eGFRcr in m L/min/1.73m2 is based the CKD-EPI 2020 equation that does not use a race coefficient. Blood Venous blood specimen / Unknown Venipuncture / Unknown 11/02/2024 5:23 AM EDT 11/02/2024 5:37 AM EDT us Saw Solano MD LAB BLOOD ORDERABLES Final Res ult Performing Organization Address City/[facility]/ZIP Co de Phone Number [facility] [address] [place] [address] * (ABNORMAL) Hemoglobin and Hematocrit, Blood (11/01/2024 6:42 PM EDT) [facility] Signature HGB 8.1(L) 13.7 - 17.5 g/dL LAB HEMATOLOGY METHOD 11/01/2024 7:[address] [facility] HCT 24.1(L) 40.0 - 51.0 % LAB HEMATOLOGY METHOD 11/01/2024 7:[address] [facility] Blood Venous blood specimen / Unknown Venipuncture / Unknown 11/01/2024 6:42 PM EDT 11/01/2024 7:10 PM EDT us Saw Solano MD LAB BLOOD ORDERABLES Final Res ult Performing Organization Address City/[facility]/ZIP Co de Phone Number [facility] [address] [place] [address] * Transfuse RBC: 1 Units, Sickle Cell (Hgb S) Negative (11/01/2024 2:09 PM EDT) us Saw Solano MD BLOOD TRANSFUSION ORDERABLES F inal Result * Transfuse RBC, Sickle Cell (Hgb S) Negative (11/01/2024 2:09 PM EDT) us Saw Solano MD BLOOD TRANSFUSION ORDERABLES F inal Result * Type and Screen (11/01/2024 10:04 AM EDT) ABO/Rh O Positive 11/01/2024 9:20 AM EDT BLOOD BANK Comment:Patient types mixed field due to transfused cells Antibody Screen Negative 11/01/2024 9:20 AM EDT BLOOD BANK Specimen Expiration 11/04/2024 23:59 11/01/2024 9:20 AM EDT BLOOD BANK Blood Venous blood specimen / Unknown Venipuncture / Unknown 11/01/2024 10:04 AM EDT 11/01/2024 10:07 AM EDT us Saw Solano MD [facility] BLOOD BANK TEST ORDERABLES Final Result Performing Organization Address City/[facility]/ZIP Co de Phone Number BLOOD BANK [address] [place] [address], * Prepare Leukocyte Reduced RBC: 1 Units, Sickle Cell (Hgb S) Negative, Leukocyte reduced (CMV reduced risk) (11/01/2024 9:20 AM EDT) Product Code [id number] BLOO D BANK Dispense Status Transfused BLOOD BANK Blood Expiration Date [id number] BLOOD BANK Unit Number [id number] B LOOD BANK Product Blood Type 9500 BLOOD BANK Blood Type O- BLOOD BANK Crossmatch Compatible BLOOD BANK Other us Saw Solano MD BLOOD BANK PRODUCT ORDERABLES Final Result Performing Organization Address City/[facility]/ZIP Co de Phone Number BLOOD BANK [address] [place] [address], * Magnesium, Plasma (11/01/2024 2:06 AM EDT) Magnesium, Plasma 1.9 1.9 - 2.4 mg/dL 11/01/2024 2:[address] [facility] Blood Venous blood specimen / Unknown Venipuncture / Unknown 11/01/2024 2:06 AM EDT 11/01/2024 2:21 AM EDT us Saw Solano MD LAB BLOOD ORDERABLES Final Res ult Performing Organization Address City/[facility] Co de Phone Number [facility] [address] [place] [address] * (ABNORMAL) Sedimentation Rate, Automated (11/01/2024 2:06 AM EDT) Sedimentation Rate 30(H) <15 mm/hr 2024 2:47 AM EDT [facility] Blood Venous blood specimen / Unknown Venipuncture / Unknown 11/01/2024 2:06 AM EDT 11/01/2024 2:21 AM EDT us Saw Solano MD LAB BLOOD ORDERABLES Final Res ult Performing Organization Address [facility] [place] [address] * (ABNORMAL) Procalcitonin, Plasma (11/01/2024 2:06 AM EDT) Procalcitonin, Plasma 0.41(H) <0.09 ng/mL 11/01/2024 2:[address] [facility] Blood Venous blood specimen / Unknown Venipuncture / Unknown 11/01/2024 2:06 AM EDT 11/01/2024 2:[address] [facility] - 11/01/2024 2:56 AM EDT Procalcitonin concentrations in healthy individuals are <0.09 ng/mL. Published data support the following interpretive risk assessment: An elevated procalcitonin result does not always indicate sepsis. Various non-infectious conditions are known to increase procalcitonin. Results should be considered in the context of clinical symptoms and other laboratory tests. Procalcitonin >2.0 ng/mL: Concentrations >2.0 ng/mL on the first day of ICU admission are associated with a higher risk of progression to severe sepsis and/or septic shock. The change in PCT over time may help predict 28 day mortality risk. Please consult [email or web address] for more information. Test performed at [facility]. Saw Solano MD LAB BLOOD ORDERABLES Final Res ult Performing Organization Address [facility]/ZIP Co de Phone Number [facility] [address] [place] [address] * (ABNORMAL) Phosphorus, Plasma (11/01/2024 2:06 AM EDT) Pathologist [facility] Phosphorus, Plasma 4.6(H) 2.5 - 4.5 mg/dL 11/01/2024 2:[address] [facility] Blood Venous blood specimen / Unknown Venipuncture / Unknown 11/01/2024 2:06 AM EDT 11/01/2024 2:21 AM EDT Saw Solano MD LAB BLOOD ORDERABLES Final Res ult Performing Organization Address [facility] Co de Phone Number [facility] [address] [place] [address] * (ABNORMAL) CBC and Differential (11/01/2024 2:06 AM EDT) WBC Count 8.72 3.70 - 10.30 10*3/uL LAB HEMATOLOGY METHOD 11/01/2024 2:[address] [facility] RBC Count 2.37(L) 4.60 - 6.10 10*6/uL LAB HEMATOLOGY METHOD 11/01/2024 2:[address] [facility] HGB 7.0(L) 13.7 - 17.5 g/dL LAB HEMATOLOGY METHOD 11/01/2024 2:[address] [facility] HCT 21.4(L) 40.0 - 51.0 % LAB HEMATOLOGY METHOD 11/01/2024 2:[address] [facility] Platelet Count 316 155 - 369 10*3/uL LAB HEMATOLOGY METHOD 11/01/2024 2:[address] [facility] MCV 90 79 - 98 fL LAB HEMATOLOGY METHOD 11/01/2024 2:[address] [facility] MCH 29.5 26.0 - 32.0 pg LAB HEMATOLOGY METHOD 11/01/2024 2:[address] [facility] MCHC 32.7 30.7 - 35.5 g/dL LAB HEMATOLOGY METHOD 11/01/2024 2:[address] [facility] RDW 18.5(H) 11.5 - 14.5 % LAB HEMATOLOGY METHOD 11/01/2024 2:[address] [facility] MPV 9.1 8.8 - 12.5 fL LAB HEMATOLOGY METHOD 11/01/2024 2:[address] [facility] nRBC 0.7(H) <=0.0 per 100 WBCs LAB HEMATOLOGY METHOD 11/01/2024 2:[address] [facility] Differential Type Automated LAB HEMATOLOGY METHOD 11/01/2024 2:[address] [facility] Neutrophils % 49 % LAB HEMATOLOGY METHOD 11/01/2024 2:[address] [facility] Lymphocytes % 35 % LAB HEMATOLOGY METHOD 11/01/2024 2:[address] [facility] Monocytes % 8 % LAB HEMATOLOGY METHOD 11/01/2024 2:[address] [facility] Eosinophils % 6 % LAB HEMATOLOGY METHOD 11/01/2024 2:[address] [facility] Basophils % 1 % LAB HEMATOLOGY METHOD 11/01/2024 2:[address] [facility] Immature Granulocytes % 1 % LAB HEMATOLOGY METHOD 11/01/2024 2:[address] [facility] Neutrophils Absolute 4.35 1.60 - 6.10 10*3/uL LAB HEMATOLOGY METHOD 11/01/2024 2:[address] [facility] Lymphocytes Absolute 3.06 1.20 - 3.90 10*3/uL LAB HEMATOLOGY METHOD 11/01/2024 2:[address] [facility] Monocytes Absolute 0.69 0.30 - 0.90 10*3/uL LAB HEMATOLOGY METHOD 11/01/2024 2:[address] [facility] Eosinophils Absolute 0.48 0.00 - 0.50 10*3/uL LAB HEMATOLOGY METHOD 11/01/2024 2:[address] [facility] Basophils Absolute 0.10 0.00 - 0.10 10*3/uL LAB HEMATOLOGY METHOD 11/01/2024 2:[address] [facility] Immature Granulocytes Absolute 0.04 0.00 - 0.06 10*3/uL LAB HEMATOLOGY METHOD 11/01/2024 2:[address] [facility] Blood Venous blood specimen / Unknown Venipuncture / Unknown 11/01/2024 2:06 AM EDT 11/01/2024 2:[address] [facility] - 11/01/2024 2:32 AM EDT Therapeutic decision making should be based on absolute values, rather than percentages. us Saw Solano MD LAB BLOOD ORDERABLES Final Res ult Performing Organization Address [facility]/State/ZIP Co de Phone Number [facility] [address] [place] [address] * (ABNORMAL) C-Reactive Protein, Plasma (11/01/2024 2:06 AM EDT) [facility] Signature CRP, Plasma 9.7(H) <=8.0 mg/L 11/01/2024 2:[address] [facility] Blood Venous blood specimen / Unknown Venipuncture / Unknown 11/01/2024 2:06 AM EDT 11/01/2024 2:21 AM EDT [facility] - 11/01/2024 2:56 AM EDT This CRP test is appropriate for assessment of infection, systemic inflammation and/or tissue injury. To assess cardiovascular disease risk order high sensitivity CRP (CRPH). us Saw Solano MD LAB BLOOD ORDERABLES Final Res ult Performing Organization Address City/[facility]/ZIP Co de Phone Number [facility] [address] [place] [address] * (ABNORMAL) Basic Metabolic Panel, Plasma (11/01/2024 2:06 AM EDT) Glucose, Plasma 158(H) 74 - 99 mg/dL 11/01/2024 2:[address] [facility] BUN, Plasma 9 7 - 21 mg/dL 11/01/2024 2:[address] [facility] Creatinine, Plasma 0.69(L) 0.70 - 1.20 mg/dL 11/01/2024 2:[address] [facility] BUN/Creatinine Ratio 13 11/01/2024 2:[address] [facility] Sodium, Plasma 137 136 - 145 mmol/L 11/01/2024 2:[address] [facility] Potassium, Plasma 3.8 3.6 - 4.9 mmol/L 11/01/2024 2:[address] [facility] Chloride, Plasma 104 97 - 107 mmol/L 11/01/2024 2:[address] [facility] CO2, Plasma 24 22 - 29 mmol/L 11/01/2024 2:[address] [facility] Anion Gap 9 6 - 16 mmol/L 11/01/2024 2:[address] [facility] Total Calcium, Plasma 8.3(L) 8.9 - 10.2 mg/dL 11/01/2024 2:[address] [facility] eGFRcr 127.7 mL/min/1.7 3m*2 11/01/2024 2:[address] [facility] Comment:Reported eGFRcr in m L/min/1.73m2 is based the CKD-EPI 2020 equation that does not use a race coefficient. Blood Venous blood specimen / Unknown Venipuncture / Unknown 11/01/2024 2:06 AM EDT 11/01/2024 2:21 AM EDT us Saw Solano MD LAB BLOOD ORDERABLES Final Res ult [facility] [address] [place] [address] * (ABNORMAL) Magnesium, Plasma (10/31/2024 5:31 AM EDT) Magnesium, Plasma 1.8(L) 1.9 - 2.4 mg/dL 10/31/2024 6:[address] [facility] Blood Venous blood specimen / Unknown Venipuncture / Unknown 10/31/2024 5:31 AM EDT 10/31/2024 5:42 AM EDT us Saw Solano MD LAB BLOOD ORDERABLES Final Res ult Performing Organization Address [facility] Co de Phone Number [facility] [address] [place] [address] * (ABNORMAL) Sedimentation Rate, Automated (10/31/2024 5:31 AM EDT) Sedimentation Rate 31(H) <15 mm/hr 2024 6:[address] [facility] Blood Venous blood specimen / Unknown Venipuncture / Unknown 10/31/2024 5:31 AM EDT 10/31/2024 5:42 AM EDT us Saw Solano MD LAB BLOOD ORDERABLES Final Res ult Performing Organization Address [facility] [place] [address] * (ABNORMAL) Procalcitonin, Plasma (10/31/2024 5:31 AM EDT) Procalcitonin, Plasma 0.35(H) <0.09 ng/mL 10/31/2024 7:[address] [facility] Blood Venous blood specimen / Unknown Venipuncture / Unknown 10/31/2024 5:31 AM EDT 10/31/2024 5:[address] [facility] - 10/31/2024 7:25 AM EDT Procalcitonin concentrations in healthy individuals are <0.09 ng/mL. Published data support the following interpretive risk assessment: An elevated procalcitonin result does not always indicate sepsis. Various non-infectious conditions are known to increase procalcitonin. Results should be considered in the context of clinical symptoms and other laboratory tests. Procalcitonin >2.0 ng/mL: Concentrations >2.0 ng/mL on the first day of ICU admission are associated with a higher risk of progression to severe sepsis and/or septic shock. The change in PCT over time may help predict 28 day mortality risk. Please consult [email or web address]-dtc-[email or web address] for more information. Test performed at [facility]. us Saw Solano MD LAB BLOOD ORDERABLES Final Res ult Performing Organization Address [facility] Co de Phone Number [facility] [address] [place] [address] * (ABNORMAL) Phosphorus, Plasma (10/31/2024 5:31 AM EDT) Phosphorus, Plasma 5.2(H) 2.5 - 4.5 mg/dL 10/31/2024 6:[address] [facility] Blood Venous blood specimen / Unknown Venipuncture / Unknown 10/31/2024 5:31 AM EDT 10/31/2024 5:42 AM EDT Saw Solano MD LAB BLOOD ORDERABLES Final Res ult Performing Organization Address [facility] Co de Phone Number [facility] [address] [place] [address] * (ABNORMAL) CBC and Differential (10/31/2024 5:31 AM EDT) WBC Count 10.40(H) 3.70 - 10.30 10*3/uL LAB HEMATOLOGY METHOD 10/31/2024 5:[address] [facility] RBC Count 2.54(L) 4.60 - 6.10 10*6/uL LAB HEMATOLOGY METHOD 10/31/2024 5:[address] [facility] HGB 7.5(L) 13.7 - 17.5 g/dL LAB HEMATOLOGY METHOD 10/31/2024 5:[address] [facility] HCT 22.8(L) 40.0 - 51.0 % LAB HEMATOLOGY METHOD 10/31/2024 5:[address] [facility] Platelet Count 366 155 - 369 10*3/uL LAB HEMATOLOGY METHOD 10/31/2024 5:[address] [facility] MCV 90 79 - 98 fL LAB HEMATOLOGY METHOD 10/31/2024 5:[address] [facility] MCH 29.5 26.0 - 32.0 pg LAB HEMATOLOGY METHOD 10/31/2024 5:[address] [facility] MCHC 32.9 30.7 - 35.5 g/dL LAB HEMATOLOGY METHOD 10/31/2024 5:[address] [facility] RDW 18.2(H) 11.5 - 14.5 % LAB HEMATOLOGY METHOD 10/31/2024 5:[address] [facility] MPV 8.9 8.8 - 12.5 fL LAB HEMATOLOGY METHOD 10/31/2024 5:[address] [facility] nRBC 0.6(H) <=0.0 per 100 WBCs LAB HEMATOLOGY METHOD 10/31/2024 5:[address] [facility] Differential Type Automated LAB HEMATOLOGY METHOD 10/31/2024 5:[address] [facility] Neutrophils % 54 % LAB HEMATOLOGY METHOD 10/31/2024 5:[address] [facility] Lymphocytes % 34 % LAB HEMATOLOGY METHOD 10/31/2024 5:[address] [facility] Monocytes % 7 % LAB HEMATOLOGY METHOD 10/31/2024 5:[address] [facility] Eosinophils % 4 % LAB HEMATOLOGY METHOD 10/31/2024 5:[address] [facility] Basophils % 1 % LAB HEMATOLOGY METHOD 10/31/2024 5:[address] [facility] Immature Granulocytes % 0 % LAB HEMATOLOGY METHOD 10/31/2024 5:[address] [facility] Neutrophils Absolute 5.71 1.60 - 6.10 10*3/uL LAB HEMATOLOGY METHOD 10/31/2024 5:[address] [facility] Lymphocytes Absolute 3.48 1.20 - 3.90 10*3/uL LAB HEMATOLOGY METHOD 10/31/2024 5:[address] [facility] Monocytes Absolute 0.68 0.30 - 0.90 10*3/uL LAB HEMATOLOGY METHOD 10/31/2024 5:[address] [facility] Eosinophils Absolute 0.36 0.00 - 0.50 10*3/uL LAB HEMATOLOGY METHOD 10/31/2024 5:[address] [facility] Basophils Absolute 0.13(H) 0.00 - 0.10 10*3/uL LAB HEMATOLOGY METHOD 10/31/2024 5:[address] [facility] Immature Granulocytes Absolute 0.04 0.00 - 0.06 10*3/uL LAB HEMATOLOGY METHOD 10/31/2024 5:[address] [facility] Blood Venous blood specimen / Unknown Venipuncture / Unknown 10/31/2024 5:31 AM EDT 10/31/2024 5:[address] [facility] - 10/31/2024 5:53 AM EDT Therapeutic decision making should be based on absolute values, rather than percentages. us Saw Solano MD LAB BLOOD ORDERABLES Final Res ult Performing Organization Address City/[facility]/ZIP Co de Phone Number [facility] [address] [place] [address] * (ABNORMAL) C-Reactive Protein, Plasma (10/31/2024 5:31 AM EDT) [facility] CRP, Plasma 9.6(H) <=8.0 mg/L 10/31/2024 6:[address] [facility] Blood Venous blood specimen / Unknown Venipuncture / Unknown 10/31/2024 5:31 AM EDT 10/31/2024 5:[address] [facility] - 10/31/2024 6:48 AM EDT This CRP test is appropriate for assessment of infection, systemic inflammation and/or tissue injury. To assess cardiovascular disease risk order high sensitivity CRP (CRPH). us Saw Solano MD LAB BLOOD ORDERABLES Final Res ult Performing Organization Address City/[facility]/ZIP Co de Phone Number [facility] [address] [place] [address] * (ABNORMAL) Basic Metabolic Panel, Plasma (10/31/2024 5:31 AM EDT) Glucose, Plasma 104(H) 74 - 99 mg/dL 10/31/2024 6:[address] [facility] BUN, Plasma 10 7 - 21 mg/dL 10/31/2024 6:[address] [facility] Creatinine, Plasma 0.89 0.70 - 1.20 mg/dL 10/31/2024 6:[address] [facility] BUN/Creatinine Ratio 11 10/31/2024 6:[address] [facility] Sodium, Plasma 136 136 - 145 mmol/L 10/31/2024 6:[address] [facility] Potassium, Plasma 4.2 3.6 - 4.9 mmol/L 10/31/2024 6:[address] [facility] Comment:Hemolyzed, result ma y be falsely increased. Chloride, Plasma 101 97 - 107 mmol/L 10/31/2024 6:[address] [facility] CO2, Plasma 24 22 - 29 mmol/L 10/31/2024 6:[address] [facility] Anion Gap 11 6 - 16 mmol/L 10/31/2024 6:[address] [facility] Total Calcium, Plasma 8.5(L) 8.9 - 10.2 mg/dL 10/31/2024 6:[address] [facility] eGFRcr 118.2 mL/min/1.7 3m*2 10/31/2024 6:[address] [facility] Comment:Reported eGFRcr in m L/min/1.73m2 is based the CKD-EPI 2020 equation that does not use a race coefficient. Blood Venous blood specimen / Unknown Venipuncture / Unknown 10/31/2024 5:31 AM EDT 10/31/2024 5:42 AM EDT us Saw Solano MD LAB BLOOD ORDERABLES Final Res ult [facility] [address] [place] [address] * Vancomycin, Random, Plasma (10/31/2024 5:31 AM EDT) Vancomycin, Random, Plasma 19.0 ug/mL 10/31/2024 6:[address] [facility] Blood Venous blood specimen / Unknown Venipuncture / Unknown 10/31/2024 5:31 AM EDT 10/31/2024 5:42 AM EDT us Saw Solano MD LAB BLOOD ORDERABLES Final Res ult [facility] [address] [place] [address] * Vancomycin, random (10/31/2024 5:31 AM EDT) Vancomycin, Random, Plasma 19.6 ug/mL 10/31/2024 6:[address] [facility] Blood Venous blood specimen / Unknown Venipuncture / Unknown 10/31/2024 5:31 AM EDT 10/31/2024 5:42 AM EDT us Saw Solano MD LAB BLOOD ORDERABLES Final Res ult Performing Organization Address [facility] [place] [address] * Magnesium, Plasma (10/30/2024 6:10 AM EDT) Magnesium, Plasma 1.9 1.9 - 2.4 mg/dL 10/30/2024 6:[address] [facility] Blood Venous blood specimen / Unknown Venipuncture / Unknown 10/30/2024 6:10 AM EDT 10/30/2024 6:16 AM EDT us Saw Solano MD LAB BLOOD [place] [address] * (ABNORMAL) Sedimentation Rate, Automated (10/30/2024 6:10 AM EDT) Sedimentation Rate 18(H) <15 mm/hr 2024 6:[address] [facility] Blood Venous blood specimen / Unknown Venipuncture / Unknown 10/30/2024 6:10 AM EDT 10/30/2024 6:16 AM EDT Saw Solano MD LAB BLOOD ORDERABLES Final Res ult Performing Organization Address [facility] de Phone Number [facility] [address] [place] [address] * (ABNORMAL) Procalcitonin, Plasma (10/30/2024 6:10 AM EDT) Procalcitonin, Plasma 0.27(H) <0.09 ng/mL 10/30/2024 6:[address] [facility] Blood Venous blood specimen / Unknown Venipuncture / Unknown 10/30/2024 6:10 AM EDT 10/30/2024 6:[address] [facility] - 10/30/2024 6:51 AM EDT Procalcitonin concentrations in healthy individuals are <0.09 ng/mL. Published data support the following interpretive risk assessment: An elevated procalcitonin result does not always indicate sepsis. Various non-infectious conditions are known to increase procalcitonin. Results should be considered in the context of clinical symptoms and other laboratory tests. Procalcitonin >2.0 ng/mL: Concentrations >2.0 ng/mL on the first day of ICU admission are associated with a higher risk of progression to severe sepsis and/or septic shock. The change in PCT over time may help predict 28 day mortality risk. Please consult [email or web address] for more information. Test performed at [facility]. us Saw Solano MD LAB BLOOD ORDERABLES Final Res ult Performing Organization Address [facility]/ZIP Co de Phone Number [facility] [address] [place] [address] * (ABNORMAL) Phosphorus, Plasma (10/30/2024 6:10 AM EDT) Phosphorus, Plasma 5.2(H) 2.5 - 4.5 mg/dL 10/30/2024 6:[address] [facility] Blood Venous blood specimen / Unknown Venipuncture / Unknown 10/30/2024 6:10 AM EDT 10/30/2024 6:16 AM EDT us Saw Solano MD LAB BLOOD ORDERABLES Final Res ult [facility] [address] [place] [address] * (ABNORMAL) CBC and Differential (10/30/2024 6:10 AM EDT) WBC Count 8.56 3.70 - 10.30 10*3/uL LAB HEMATOLOGY METHOD 10/30/2024 6:[address] [facility] RBC Count 2.54(L) 4.60 - 6.10 10*6/uL LAB HEMATOLOGY METHOD 10/30/2024 6:[address] [facility] HGB 7.5(L) 13.7 - 17.5 g/dL LAB HEMATOLOGY METHOD 10/30/2024 6:[address] [facility] HCT 22.6(L) 40.0 - 51.0 % LAB HEMATOLOGY METHOD 10/30/2024 6:[address] [facility] Platelet Count 359 155 - 369 10*3/uL LAB HEMATOLOGY METHOD 10/30/2024 6:[address] [facility] MCV 89 79 - 98 fL LAB HEMATOLOGY METHOD 10/30/2024 6:[address] [facility] MCH 29.5 26.0 - 32.0 pg LAB HEMATOLOGY METHOD 10/30/2024 6:[address] [facility] MCHC 33.2 30.7 - 35.5 g/dL LAB HEMATOLOGY METHOD 10/30/2024 6:[address] [facility] RDW 18.2(H) 11.5 - 14.5 % LAB HEMATOLOGY METHOD 10/30/2024 6:[address] [facility] MPV 8.9 8.8 - 12.5 fL LAB HEMATOLOGY METHOD 10/30/2024 6:[address] [facility] nRBC 0.9(H) <=0.0 per 100 WBCs LAB HEMATOLOGY METHOD 10/30/2024 6:[address] [facility] Differential Type Automated LAB HEMATOLOGY METHOD 10/30/2024 6:[address] [facility] Neutrophils % 52 % LAB HEMATOLOGY METHOD 10/30/2024 6:[address] [facility] Lymphocytes % 34 % LAB HEMATOLOGY METHOD 10/30/2024 6:[address] [facility] Monocytes % 8 % LAB HEMATOLOGY METHOD 10/30/2024 6:[address] [facility] Eosinophils % 4 % LAB HEMATOLOGY METHOD 10/30/2024 6:[address] [facility] Basophils % 1 % LAB HEMATOLOGY METHOD 10/30/2024 6:[address] [facility] Immature Granulocytes % 1 % LAB HEMATOLOGY METHOD 10/30/2024 6:[address] [facility] Neutrophils Absolute 4.58 1.60 - 6.10 10*3/uL LAB HEMATOLOGY METHOD 10/30/2024 6:[address] [facility] Lymphocytes Absolute 2.87 1.20 - 3.90 10*3/uL LAB HEMATOLOGY METHOD 10/30/2024 6:[address] [facility] Monocytes Absolute 0.64 0.30 - 0.90 10*3/uL LAB HEMATOLOGY METHOD 10/30/2024 6:[address] [facility] Eosinophils Absolute 0.34 0.00 - 0.50 10*3/uL LAB HEMATOLOGY METHOD 10/30/2024 6:[address] [facility] Basophils Absolute 0.09 0.00 - 0.10 10*3/uL LAB HEMATOLOGY METHOD 10/30/2024 6:[address] [facility] Immature Granulocytes Absolute 0.04 0.00 - 0.06 10*3/uL LAB HEMATOLOGY METHOD 10/30/2024 6:33 AM EDT [facility] Blood Venous blood specimen / Unknown Venipuncture / Unknown 10/30/2024 6:10 AM EDT 10/30/2024 6:[address] [facility] - 10/30/2024 6:33 AM EDT Therapeutic decision making should be based on absolute values, rather than percentages. us Saw Solano MD LAB BLOOD ORDERABLES Final Res ult Performing Organization Address [facility] Co de Phone Number [facility] [address] [place] [address] * C-Reactive Protein, Plasma (10/30/2024 6:10 AM EDT) CRP, Plasma 7.9 <=8.0 mg/L 10/30/2024 6:[address] [facility] Blood Venous blood specimen / Unknown Venipuncture / Unknown 10/30/2024 6:10 AM EDT 10/30/2024 6:[address] [facility] - 10/30/2024 6:51 AM EDT This CRP test is appropriate for assessment of infection, systemic inflammation and/or tissue injury. To assess cardiovascular disease risk order high sensitivity CRP (CRPH). us Saw Solano MD LAB BLOOD ORDERABLES Final Res ult Performing Organization Address [facility] de Phone Number [facility] [address] [place] [address] * (ABNORMAL) Basic Metabolic Panel, Plasma (10/30/2024 6:10 AM EDT) Glucose, Plasma 95 74 - 99 mg/dL 10/30/2024 6:[address] [facility] BUN, Plasma 9 7 - 21 mg/dL 10/30/2024 6:[address] [facility] Creatinine, Plasma 0.78 0.70 - 1.20 mg/dL 10/30/2024 6:[address] [facility] BUN/Creatinine Ratio 12 10/30/2024 6:[address] [facility] Sodium, Plasma 137 136 - 145 mmol/L 10/30/2024 6:[address] [facility] Potassium, Plasma 4.2 3.6 - 4.9 mmol/L 10/30/2024 6:[address] [facility] Chloride, Plasma 103 97 - 107 mmol/L 10/30/2024 6:[address] [facility] CO2, Plasma 25 22 - 29 mmol/L 10/30/2024 6:[address] [facility] Anion Gap 9 6 - 16 mmol/L 10/30/2024 6:[address] [facility] Total Calcium, Plasma 8.8(L) 8.9 - 10.2 mg/dL 10/30/2024 6:[address] [facility] eGFRcr 123.0 mL/min/1.7 3m*2 10/30/2024 6:[address] [facility] Comment:Reported eGFRcr in m L/min/1.73m2 is based the CKD-EPI 2020 equation that does not use a race coefficient. Blood Venous blood specimen / Unknown Venipuncture / Unknown 10/30/2024 6:10 AM EDT 10/30/2024 6:16 AM EDT us Saw Solano MD LAB BLOOD ORDERABLES Final Res ult Performing Organization Address City/[facility]/ZIP Co de Phone Number [facility] [address] [place] [address] * (ABNORMAL) Magnesium, Plasma (10/29/2024 6:12 AM EDT) Magnesium, Plasma 1.8(L) 1.9 - 2.4 mg/dL 10/29/2024 7:[address] [facility] Blood Venous blood specimen / Unknown Venipuncture / Unknown 10/29/2024 6:12 AM EDT 10/29/2024 6:17 AM EDT us Saw Solano MD LAB BLOOD ORDERABLES Final Res ult [facility] [address] [place] [address] * (ABNORMAL) Sedimentation Rate, Automated (10/29/2024 6:12 AM EDT) Sedimentation Rate 26(H) <15 mm/hr 2024 6:[address] [facility] Blood Venous blood specimen / Unknown Venipuncture / Unknown 10/29/2024 6:12 AM EDT 10/29/2024 6:17 AM EDT us Saw Solano MD LAB BLOOD ORDERABLES Final Res ult Performing Organization Address [facility] de Phone Number [facility] [address] [place] [address] * (ABNORMAL) Procalcitonin, Plasma (10/29/2024 6:12 AM EDT) Procalcitonin, Plasma 0.28(H) <0.09 ng/mL 10/29/2024 7:[address] [facility] Blood Venous blood specimen / Unknown Venipuncture / Unknown 10/29/2024 6:12 AM EDT 10/29/2024 6:[address] [facility] - 10/29/2024 7:24 AM EDT Procalcitonin concentrations in healthy individuals are <0.09 ng/mL. Published data support the following interpretive risk assessment: An elevated procalcitonin result does not always indicate sepsis. Various non-infectious conditions are known to increase procalcitonin. Results should be considered in the context of clinical symptoms and other laboratory tests. Procalcitonin >2.0 ng/mL: Concentrations >2.0 ng/mL on the first day of ICU admission are associated with a higher risk of progression to severe sepsis and/or septic shock. The change in PCT over time may help predict 28 day mortality risk. Please consult [email or web address] for more information. Test performed at [facility]. us Saw Solano MD LAB BLOOD ORDERABLES Final Res ult Performing Organization Address City/[facility]/ZIP Co de Phone Number [facility] [address] [place] [address] * (ABNORMAL) Phosphorus, Plasma (10/29/2024 6:12 AM EDT) Pathologist [facility] Phosphorus, Plasma 4.7(H) 2.5 - 4.5 mg/dL 10/29/2024 7:[address] [facility] Blood Venous blood specimen / Unknown Venipuncture / Unknown 10/29/2024 6:12 AM EDT 10/29/2024 6:17 AM EDT us Saw Solano MD LAB BLOOD ORDERABLES Final Res ult [facility] [address] [place] [address] * (ABNORMAL) CBC and Differential (10/29/2024 6:12 AM EDT) [facility] WBC Count 10.45(H) 3.70 - 10.30 10*3/uL LAB HEMATOLOGY METHOD 10/29/2024 6:[address] [facility] RBC Count 2.61(L) 4.60 - 6.10 10*6/uL LAB HEMATOLOGY METHOD 10/29/2024 6:[address] [facility] HGB 7.9(L) 13.7 - 17.5 g/dL LAB HEMATOLOGY METHOD 10/29/2024 6:[address] [facility] HCT 23.1(L) 40.0 - 51.0 % LAB HEMATOLOGY METHOD 10/29/2024 6:[address] [facility] Platelet Count 383(H) 155 - 369 10*3/uL LAB HEMATOLOGY METHOD 10/29/2024 6:[address] [facility] MCV 89 79 - 98 fL LAB HEMATOLOGY METHOD 10/29/2024 6:[address] [facility] MCH 30.3 26.0 - 32.0 pg LAB HEMATOLOGY METHOD 10/29/2024 6:[address] [facility] MCHC 34.2 30.7 - 35.5 g/dL LAB HEMATOLOGY METHOD 10/29/2024 6:[address] [facility] RDW 18.6(H) 11.5 - 14.5 % LAB HEMATOLOGY METHOD 10/29/2024 6:[address] [facility] MPV 8.6(L) 8.8 - 12.5 fL LAB HEMATOLOGY METHOD 10/29/2024 6:[address] [facility] nRBC 0.9(H) <=0.0 per 100 WBCs LAB HEMATOLOGY METHOD 10/29/2024 6:[address] [facility] Differential Type Automated LAB HEMATOLOGY METHOD 10/29/2024 6:[address] [facility] Neutrophils % 51 % LAB HEMATOLOGY METHOD 10/29/2024 6:[address] [facility] Lymphocytes % 34 % LAB HEMATOLOGY METHOD 10/29/2024 6:[address] [facility] Monocytes % 8 % LAB HEMATOLOGY METHOD 10/29/2024 6:[address] [facility] Eosinophils % 5 % LAB HEMATOLOGY METHOD 10/29/2024 6:[address] [facility] Basophils % 1 % LAB HEMATOLOGY METHOD 10/29/2024 6:[address] [facility] Immature Granulocytes % 1 % LAB HEMATOLOGY METHOD 10/29/2024 6:[address] [facility] Neutrophils Absolute 5.31 1.60 - 6.10 10*3/uL LAB HEMATOLOGY METHOD 10/29/2024 6:[address] [facility] Lymphocytes Absolute 3.59 1.20 - 3.90 10*3/uL LAB HEMATOLOGY METHOD 10/29/2024 6:[address] [facility] Monocytes Absolute 0.84 0.30 - 0.90 10*3/uL LAB HEMATOLOGY METHOD 10/29/2024 6:[address] [facility] Eosinophils Absolute 0.54(H) 0.00 - 0.50 10*3/uL LAB HEMATOLOGY METHOD 10/29/2024 6:[address] [facility] Basophils Absolute 0.11(H) 0.00 - 0.10 10*3/uL LAB HEMATOLOGY METHOD 10/29/2024 6:[address] [facility] Immature Granulocytes Absolute 0.06 0.00 - 0.06 10*3/uL LAB HEMATOLOGY METHOD 10/29/2024 6:26 AM EDT [facility] Blood Venous blood specimen / Unknown Venipuncture / Unknown 10/29/2024 6:12 AM EDT 10/29/2024 6:[address] [facility] - 10/29/2024 6:26 AM EDT Therapeutic decision making should be based on absolute values, rather than percentages. us Saw Solano MD LAB BLOOD ORDERABLES Final Res ult Performing Organization Address [facility] Co de Phone Number [facility] [address] [place] [address] * (ABNORMAL) C-Reactive Protein, Plasma (10/29/2024 6:12 AM EDT) CRP, Plasma 8.1(H) <=8.0 mg/L 10/29/2024 7:[address] [facility] Blood Venous blood specimen / Unknown Venipuncture / Unknown 10/29/2024 6:12 AM EDT 10/29/2024 6:[address] [facility] - 10/29/2024 7:24 AM EDT This CRP test is appropriate for assessment of infection, systemic inflammation and/or tissue injury. To assess cardiovascular disease risk order high sensitivity CRP (CRPH). us Saw Solano MD LAB BLOOD ORDERABLES Final Res ult Performing Organization Address [facility] de Phone Number [facility] [address] [place] [address] * (ABNORMAL) Basic Metabolic Panel, Plasma (10/29/2024 6:12 AM EDT) Glucose, Plasma 92 74 - 99 mg/dL 10/29/2024 7:[address] [facility] BUN, Plasma 7 7 - 21 mg/dL 10/29/2024 7:[address] [facility] Creatinine, Plasma 0.71 0.70 - 1.20 mg/dL 10/29/2024 7:[address] [facility] BUN/Creatinine Ratio 10 10/29/2024 7:[address] [facility] Sodium, Plasma 139 136 - 145 mmol/L 10/29/2024 7:[address] [facility] Potassium, Plasma 4.3 3.6 - 4.9 mmol/L 10/29/2024 7:[address] [facility] Chloride, Plasma 104 97 - 107 mmol/L 10/29/2024 7:[address] [facility] CO2, Plasma 25 22 - 29 mmol/L 10/29/2024 7:[address] [facility] Anion Gap 10 6 - 16 mmol/L 10/29/2024 7:[address] [facility] Total Calcium, Plasma 8.5(L) 8.9 - 10.2 mg/dL 10/29/2024 7:[address] [facility] eGFRcr 126.6 mL/min/1.7 3m*2 10/29/2024 7:[address] [facility] Comment:Reported eGFRcr in m L/min/1.73m2 is based the CKD-EPI 2020 equation that does not use a race coefficient. Blood Venous blood specimen / Unknown Venipuncture / Unknown 10/29/2024 6:12 AM EDT 10/29/2024 6:17 AM EDT us Saw Solano MD LAB BLOOD ORDERABLES Final Res ult Performing Organization Address City/[facility]/ZIP Co de Phone Number [facility] [address] [place] [address] * Vancomycin, random (10/29/2024 6:12 AM EDT) Vancomycin, Random, Plasma 27.4 ug/mL 10/29/2024 6:[address] [facility] Blood Venous blood specimen / Unknown Venipuncture / Unknown 10/29/2024 6:12 AM EDT 10/29/2024 6:17 AM EDT us Saw Solano MD LAB BLOOD ORDERABLES Final Res ult [facility] [address] [place] [address] * Blood Culture (Aerobic/Anaerobet Set) (10/28/2024 10:15 AM EDT) Culture No growth at day 5 YUNIER 11/02/2024 11:[address] [facility] Blood Venous blood specimen / Unknown Venipuncture / Unknown 10/28/2024 10:15 AM EDT 10/28/2024 10:44 AM EDT us Saw Solano MD LAB MICROBIOLOGY - GENERAL ORD ERABLES Final Result Performing Organization Address [facility]/ZIP Co de Phone Number [facility] [address] [place] [address] * Blood Culture (Aerobic/Anaerobet Set) (10/28/2024 8:31 AM EDT) Culture No growth at day 5 YUNIER 11/02/2024 10:01 AM EDT [facility] Blood Blood sample taken from central line / Unknown (Port) Long-term Catheter / Unknown 10/28/2024 8:31 AM EDT 10/28/2024 9:22 AM EDT us Saw Solano MD LAB MICROBIOLOGY - GENERAL ORD ERABLES Final Result Performing Organization Address City/[facility] [place] [address] * (ABNORMAL) Procalcitonin, Plasma (10/27/2024 5:19 AM EDT) Procalcitonin, Plasma 0.49(H) <0.09 ng/mL 10/27/2024 6:[address] [facility] Blood Venous blood specimen / Unknown Venipuncture / Unknown 10/27/2024 5:19 AM EDT 10/27/2024 5:[address] [facility] - 10/27/2024 6:27 AM EDT Procalcitonin concentrations in healthy individuals are <0.09 ng/mL. Published data support the following interpretive risk assessment: An elevated procalcitonin result does not always indicate sepsis. Various non-infectious conditions are known to increase procalcitonin. Results should be considered in the context of clinical symptoms and other laboratory tests. Procalcitonin >2.0 ng/mL: Concentrations >2.0 ng/mL on the first day of ICU admission are associated with a higher risk of progression to severe sepsis and/or septic shock. The change in PCT over time may help predict 28 day mortality risk. Please consult [email or web address] for more information. Test performed at [facility]. us Saw Solano MD LAB BLOOD ORDERABLES Final Res ult Performing Organization Address [facility] [place] [address] * (ABNORMAL) Sedimentation Rate, Automated (10/27/2024 5:19 AM EDT) Sedimentation Rate 20(H) <15 mm/hr 2024 6:[address] [facility] Blood Venous blood specimen / Unknown Venipuncture / Unknown 10/27/2024 5:19 AM EDT 10/27/2024 5:31 AM EDT us Saw Solano MD LAB BLOOD ORDERABLES Final Res ult Performing Organization Address [facility] [place] [address] * (ABNORMAL) C-Reactive Protein, Plasma (10/27/2024 5:19 AM EDT) CRP, Plasma 12.5(H) <=8.0 mg/L 10/27/2024 6:[address] [facility] Blood Venous blood specimen / Unknown Venipuncture / Unknown 10/27/2024 5:19 AM EDT 10/27/2024 5:[address] [facility] - 10/27/2024 6:04 AM EDT This CRP test is appropriate for assessment of infection, systemic inflammation and/or tissue injury. To assess cardiovascular disease risk order high sensitivity CRP (CRPH). us Saw Solano MD LAB BLOOD ORDERABLES Final Res ult Performing Organization Address [facility]/ZIP Co de Phone Number [facility] [address] [place] [address] * (ABNORMAL) Basic Metabolic Panel, Plasma (10/27/2024 5:19 AM EDT) Glucose, Plasma 88 74 - 99 mg/dL 10/27/2024 6:[address] [facility] BUN, Plasma 7 7 - 21 mg/dL 10/27/2024 6:[address] [facility] Creatinine, Plasma 0.67(L) 0.70 - 1.20 mg/dL 10/27/2024 6:[address] [facility] BUN/Creatinine Ratio 10 10/27/2024 6:[address] [facility] Sodium, Plasma 137 136 - 145 mmol/L 10/27/2024 6:[address] [facility] Potassium, Plasma 4.1 3.6 - 4.9 mmol/L 10/27/2024 6:[address] [facility] Chloride, Plasma 102 97 - 107 mmol/L 10/27/2024 6:[address] [facility] CO2, Plasma 26 22 - 29 mmol/L 10/27/2024 6:[address] [facility] Anion Gap 9 6 - 16 mmol/L 10/27/2024 6:[address] [facility] Total Calcium, Plasma 8.4(L) 8.9 - 10.2 mg/dL 10/27/2024 6:[address] [facility] eGFRcr 128.8 mL/min/1.7 3m*2 10/27/2024 6:[address] [facility] Comment:Reported eGFRcr in m L/min/1.73m2 is based the CKD-EPI 2020 equation that does not use a race coefficient. Blood Venous blood specimen / Unknown Venipuncture / Unknown 10/27/2024 5:19 AM EDT 10/27/2024 5:32 AM EDT us Saw Solano MD LAB BLOOD ORDERABLES Final Res ult Performing Organization Address City/[facility]/ZIP Co de Phone Number [facility] [address] [place] [address] * (ABNORMAL) Phosphorus, Plasma (10/27/2024 5:19 AM EDT) Pathologist [facility] Phosphorus, Plasma 5.1(H) 2.5 - 4.5 mg/dL 10/27/2024 6:[address] [facility] Blood Venous blood specimen / Unknown Venipuncture / Unknown 10/27/2024 5:19 AM EDT 10/27/2024 5:32 AM EDT us Saw Solano MD LAB BLOOD ORDERABLES Final Res ult [facility] [address] [place] [address] * (ABNORMAL) CBC and Differential (10/27/2024 5:19 AM EDT) [facility] WBC Count 9.12 3.70 - 10.30 10*3/uL LAB HEMATOLOGY METHOD 10/27/2024 5:[address] [facility] RBC Count 2.49(L) 4.60 - 6.10 10*6/uL LAB HEMATOLOGY METHOD 10/27/2024 5:[address] [facility] HGB 7.4(L) 13.7 - 17.5 g/dL LAB HEMATOLOGY METHOD 10/27/2024 5:[address] [facility] HCT 21.8(L) 40.0 - 51.0 % LAB HEMATOLOGY METHOD 10/27/2024 5:[address] [facility] Platelet Count 388(H) 155 - 369 10*3/uL LAB HEMATOLOGY METHOD 10/27/2024 5:[address] [facility] MCV 88 79 - 98 fL LAB HEMATOLOGY METHOD 10/27/2024 5:[address] [facility] MCH 29.7 26.0 - 32.0 pg LAB HEMATOLOGY METHOD 10/27/2024 5:[address] [facility] MCHC 33.9 30.7 - 35.5 g/dL LAB HEMATOLOGY METHOD 10/27/2024 5:[address] [facility] RDW 18.3(H) 11.5 - 14.5 % LAB HEMATOLOGY METHOD 10/27/2024 5:[address] [facility] MPV 8.8 8.8 - 12.5 fL LAB HEMATOLOGY METHOD 10/27/2024 5:[address] [facility] nRBC 2.5(H) <=0.0 per 100 WBCs LAB HEMATOLOGY METHOD 10/27/2024 5:[address] [facility] Differential Type Automated LAB HEMATOLOGY METHOD 10/27/2024 5:[address] [facility] Neutrophils % 50 % LAB HEMATOLOGY METHOD 10/27/2024 5:[address] [facility] Lymphocytes % 35 % LAB HEMATOLOGY METHOD 10/27/2024 5:[address] [facility] Monocytes % 8 % LAB HEMATOLOGY METHOD 10/27/2024 5:[address] [facility] Eosinophils % 5 % LAB HEMATOLOGY METHOD 10/27/2024 5:[address] [facility] Basophils % 1 % LAB HEMATOLOGY METHOD 10/27/2024 5:[address] [facility] Immature Granulocytes % 1 % LAB HEMATOLOGY METHOD 10/27/2024 5:[address] [facility] Neutrophils Absolute 4.61 1.60 - 6.10 10*3/uL LAB HEMATOLOGY METHOD 10/27/2024 5:[address] [facility] Lymphocytes Absolute 3.15 1.20 - 3.90 10*3/uL LAB HEMATOLOGY METHOD 10/27/2024 5:[address] [facility] Monocytes Absolute 0.77 0.30 - 0.90 10*3/uL LAB HEMATOLOGY METHOD 10/27/2024 5:[address] [facility] Eosinophils Absolute 0.42 0.00 - 0.50 10*3/uL LAB HEMATOLOGY METHOD 10/27/2024 5:[address] [facility] Basophils Absolute 0.11(H) 0.00 - 0.10 10*3/uL LAB HEMATOLOGY METHOD 10/27/2024 5:[address] [facility] Immature Granulocytes Absolute 0.06 0.00 - 0.06 10*3/uL LAB HEMATOLOGY METHOD 10/27/2024 5:42 AM EDT [facility] Blood Venous blood specimen / Unknown Venipuncture / Unknown 10/27/2024 5:19 AM EDT 10/27/2024 5:[address] [facility] - 10/27/2024 5:42 AM EDT Therapeutic decision making should be based on absolute values, rather than percentages. us Saw Solano MD LAB BLOOD ORDERABLES Final Res ult Performing Organization Address City/[facility]/ZIP Co de Phone Number [facility] [address] [place] [address] * Vancomycin, random (10/27/2024 5:19 AM EDT) Vancomycin, Random, Plasma 30.0 ug/mL 10/27/2024 6:[address] [facility] Blood Venous blood specimen / Unknown Venipuncture / Unknown 10/27/2024 5:19 AM EDT 10/27/2024 5:32 AM EDT us Saw Solano MD LAB BLOOD ORDERABLES Final Res ult Performing Organization Address [facility] Co de Phone Number [facility] [address] [place] [address] * Blood Culture (Aerobic/Anaerobet Set) (10/27/2024 4:18 AM EDT) Culture No growth at day 5 YUNIER 11/01/2024 5:[address] [facility] Blood Structure of antecubital vein / Unknown Venipuncture / Unknown 10/27/2024 4:18 AM EDT 10/27/2024 4:45 AM EDT us Saw Solano MD LAB MICROBIOLOGY - GENERAL ORD ERABLES Final Result Performing Organization Address City/[facility] Co de Phone Number [address] [address] * (ABNORMAL) Wound Culture and Gram Stain (10/26/2024 2:23 PM EDT) CULTURE READING WOUND Light Growth 10/29/2024 8:[address] [facility] CULTURE READING WOUND Staphylococcus epidermidis(A) YUNIER 10/29/2024 8:[address] [facility] Comment: This isolate has been identified using the FDA Approved Blue Source CA System The organism value for this result has been updated. These results have been appended to the previously preliminary verified report. Gram Stain Result No organisms seen 10/29/2024 8:[address] [facility] Gram Stain Result No polymorphonuclear leukocytes seen 10/29/2024 8:[address] [facility] Swab Skin structure / Unknown Non-blood Collection / Unknown 10/26/2024 2:23 PM EDT 10/26/2024 2:38 PM EDT Narrative Organism Antibiotic Method Susceptibility Staphylococcus epidermidis Clindamycin YUNIER >2 ug/ml: Resistant Staphylococcus epidermidis Daptomycin YUNIER <=1 ug/ml: Susceptible Staphylococcus epidermidis Erythromycin YUNIER >4 ug/ml: Resistant Staphylococcus epidermidis Gentamicin YUNIER <=1 ug/ml: Susceptible Staphylococcus epidermidis Linezolid YUNIER <=1 ug/ml: Susceptible Staphylococcus epidermidis Minocycline YUNIER <=1 ug/ml: Susceptible Staphylococcus epidermidis Oxacillin YUNIER >1 ug/ml: Resistant Staphylococcus epidermidis Penicillin G YUNIER >1 ug/ml: Resistant Staphylococcus epidermidis Tetracycline YUNIER <=0.5 ug/ml: Susceptible Staphylococcus epidermidis Vancomycin YUNIER 1 ug/ml: Susceptible us Saw Solano MD LAB MICROBIOLOGY - GENERAL ORD ERABLES Final Result Performing Organization Address City/[facility] Co de Phone Number [facility] [address] [place] [address] * Blood Culture (Aerobic/Anaerobet Set) (10/26/2024 2:22 PM EDT) Culture No growth at day 5 YUNIER 10/31/2024 3:[address] [facility] Blood Venous blood specimen / Unknown (Port) Long-term Catheter / Unknown 10/26/2024 2:22 PM EDT 10/26/2024 2:39 PM EDT us Saw Solano MD LAB MICROBIOLOGY - GENERAL ORD ERABLES Final Result Performing Organization Address City/[facility]/ZIP Co de Phone Number [facility] [address] [place] [address] * (ABNORMAL) Procalcitonin, Plasma (10/26/2024 4:03 AM EDT) Procalcitonin, Plasma 0.72(H) <0.09 ng/mL 10/26/2024 4:47 AM EDT [facility] Blood Venous blood specimen / Unknown Venipuncture / Unknown 10/26/2024 4:03 AM EDT 10/26/2024 4:[address] [facility] - 10/26/2024 4:47 AM EDT Procalcitonin concentrations in healthy individuals are <0.09 ng/mL. Published data support the following interpretive risk assessment: An elevated procalcitonin result does not always indicate sepsis. Various non-infectious conditions are known to increase procalcitonin. Results should be considered in the context of clinical symptoms and other laboratory tests. Procalcitonin >2.0 ng/mL: Concentrations >2.0 ng/mL on the first day of ICU admission are associated with a higher risk of progression to severe sepsis and/or septic shock. The change in PCT over time may help predict 28 day mortality risk. Please consult [email or web address]-tzd-[email or web address] for more information. Test performed at [facility]. us Saw Solano MD LAB BLOOD ORDERABLES Final Res ult [facility] [address] [place] [address] * (ABNORMAL) Sedimentation Rate, Automated (10/26/2024 4:03 AM EDT) Sedimentation Rate 19(H) <15 mm/hr 2024 4:[address] [facility] Blood Venous blood specimen / Unknown Venipuncture / Unknown 10/26/2024 4:03 AM EDT 10/26/2024 4:10 AM EDT us Saw Solano MD LAB BLOOD ORDERABLES Final Res ult [facility] [address] [place] [address] * (ABNORMAL) C-Reactive Protein, Plasma (10/26/2024 4:03 AM EDT) CRP, Plasma 15.0(H) <=8.0 mg/L 10/26/2024 4:[address] [facility] Blood Venous blood specimen / Unknown Venipuncture / Unknown 10/26/2024 4:03 AM EDT 10/26/2024 4:[address] [facility] - 10/26/2024 4:47 AM EDT This CRP test is appropriate for assessment of infection, systemic inflammation and/or tissue injury. To assess cardiovascular disease risk order high sensitivity CRP (CRPH). us Saw Solano MD LAB BLOOD ORDERABLES Final Res ult Performing Organization Address [facility]/ZIP Co de Phone Number [facility] [address] [place] [address] * (ABNORMAL) Basic Metabolic Panel, Plasma (10/26/2024 4:03 AM EDT) Pathologist [facility] Glucose, Plasma 94 74 - 99 mg/dL 10/26/2024 4:[address] [facility] BUN, Plasma 6(L) 7 - 21 mg/dL 10/26/2024 4:[address] [facility] Creatinine, Plasma 0.68(L) 0.70 - 1.20 mg/dL 10/26/2024 4:[address] [facility] BUN/Creatinine Ratio 9 10/26/2024 4:[address] [facility] Sodium, Plasma 138 136 - 145 mmol/L 10/26/2024 4:[address] [facility] Potassium, Plasma 4.0 3.6 - 4.9 mmol/L 10/26/2024 4:[address] [facility] Chloride, Plasma 103 97 - 107 mmol/L 10/26/2024 4:[address] [facility] CO2, Plasma 26 22 - 29 mmol/L 10/26/2024 4:[address] [facility] Anion Gap 9 6 - 16 mmol/L 10/26/2024 4:[address] [facility] Total Calcium, Plasma 8.2(L) 8.9 - 10.2 mg/dL 10/26/2024 4:[address] [facility] eGFRcr 128.2 mL/min/1.7 3m*2 10/26/2024 4:[address] [facility] Comment:Reported eGFRcr in m L/min/1.73m2 is based the CKD-EPI 2020 equation that does not use a race coefficient. Blood Venous blood specimen / Unknown Venipuncture / Unknown 10/26/2024 4:03 AM EDT 10/26/2024 4:10 AM EDT us Saw Solano MD LAB BLOOD ORDERABLES Final Res ult Performing Organization Address [facility]/ZIP Co de Phone Number [facility] [address] [place] [address] * (ABNORMAL) Phosphorus, Plasma (10/26/2024 4:03 AM EDT) Phosphorus, Plasma 4.6(H) 2.5 - 4.5 mg/dL 10/26/2024 4:[address] [facility] Blood Venous blood specimen / Unknown Venipuncture / Unknown 10/26/2024 4:03 AM EDT 10/26/2024 4:10 AM EDT us Saw Solano MD LAB BLOOD ORDERABLES Final Res ult [facility] [address] [place] [address] * (ABNORMAL) CBC and Differential (10/26/2024 4:03 AM EDT) WBC Count 9.74 3.70 - 10.30 10*3/uL LAB HEMATOLOGY METHOD 10/26/2024 4:[address] [facility] RBC Count 2.53(L) 4.60 - 6.10 10*6/uL LAB HEMATOLOGY METHOD 10/26/2024 4:[address] [facility] HGB 7.6(L) 13.7 - 17.5 g/dL LAB HEMATOLOGY METHOD 10/26/2024 4:[address] [facility] HCT 22.1(L) 40.0 - 51.0 % LAB HEMATOLOGY METHOD 10/26/2024 4:[address] [facility] Platelet Count 396(H) 155 - 369 10*3/uL LAB HEMATOLOGY METHOD 10/26/2024 4:[address] [facility] MCV 87 79 - 98 fL LAB HEMATOLOGY METHOD 10/26/2024 4:[address] [facility] MCH 30.0 26.0 - 32.0 pg LAB HEMATOLOGY METHOD 10/26/2024 4:[address] [facility] MCHC 34.4 30.7 - 35.5 g/dL LAB HEMATOLOGY METHOD 10/26/2024 4:[address] [facility] RDW 18.6(H) 11.5 - 14.5 % LAB HEMATOLOGY METHOD 10/26/2024 4:[address] [facility] MPV 8.7(L) 8.8 - 12.5 fL LAB HEMATOLOGY METHOD 10/26/2024 4:[address] [facility] nRBC 3.1(H) <=0.0 per 100 WBCs LAB HEMATOLOGY METHOD 10/26/2024 4:[address] [facility] Differential Type Automated LAB HEMATOLOGY METHOD 10/26/2024 4:[address] [facility] Neutrophils % 44 % LAB HEMATOLOGY METHOD 10/26/2024 4:[address] [facility] Lymphocytes % 41 % LAB HEMATOLOGY METHOD 10/26/2024 4:[address] [facility] Monocytes % 9 % LAB HEMATOLOGY METHOD 10/26/2024 4:[address] [facility] Eosinophils % 4 % LAB HEMATOLOGY METHOD 10/26/2024 4:[address] [facility] Basophils % 1 % LAB HEMATOLOGY METHOD 10/26/2024 4:[address] [facility] Immature Granulocytes % 1 % LAB HEMATOLOGY METHOD 10/26/2024 4:[address] [facility] Neutrophils Absolute 4.33 1.60 - 6.10 10*3/uL LAB HEMATOLOGY METHOD 10/26/2024 4:[address] [facility] Lymphocytes Absolute 3.97(H) 1.20 - 3.90 10*3/uL LAB HEMATOLOGY METHOD 10/26/2024 4:[address] [facility] Monocytes Absolute 0.90 0.30 - 0.90 10*3/uL LAB HEMATOLOGY METHOD 10/26/2024 4:[address] [facility] Eosinophils Absolute 0.36 0.00 - 0.50 10*3/uL LAB HEMATOLOGY METHOD 10/26/2024 4:[address] [facility] Basophils Absolute 0.11(H) 0.00 - 0.10 10*3/uL LAB HEMATOLOGY METHOD 10/26/2024 4:[address] [facility] Immature Granulocytes Absolute 0.07(H) 0.00 - 0.06 10*3/uL LAB HEMATOLOGY METHOD 10/26/2024 4:[address] [facility] Blood Venous blood specimen / Unknown Venipuncture / Unknown 10/26/2024 4:03 AM EDT 10/26/2024 4:[address] [facility] - 10/26/2024 4:24 AM EDT Therapeutic decision making should be based on absolute values, rather than percentages. us Saw Solano MD LAB BLOOD ORDERABLES Final Res ult [facility] [address] [place] [address] * (ABNORMAL) Vancomycin, Peak, Plasma Please draw vancomycin peak 2 hours after end of infusion on 10/25 (~1100). Level 2 of 2 (10/25/2024 11:23 AM EDT) Vancomycin, Peak, Plasma 14.7(L) 20.0 - 40.0 ug/mL 10/25/2024 12:[address] [facility] Blood Venous blood specimen / Unknown Venipuncture / Unknown 10/25/2024 11:23 AM EDT 10/25/2024 11:[address] [facility] - 10/25/2024 12:06 PM EDT Therapeutic Peak level: 20-40ug/mL Supra-therapeutic Peak level: >40 ug/mL us Saw Solano MD LAB BLOOD ORDERABLES Final Res ult Performing Organization Address [facility] [place] [address] * (ABNORMAL) Vancomycin, Trough, Plasma Please draw vancomycin trough 30 min before dose on 10/25 (~0730). Level 1 of 2 (10/25/2024 7:50 AM EDT) Vancomycin, Trough, Plasma 8.5(L) 10.0 - 20.0 ug/mL 10/25/2024 8:[address] [facility] Blood Venous blood specimen / Unknown Venipuncture / Unknown 10/25/2024 7:50 AM EDT 10/25/2024 7:55 AM EDT [facility] - 10/25/2024 8:27 AM EDT Therapeutic Trough level: 10-20ug/mL Supra-therapeutic Trough level: >20 ug/mL us Saw Solano MD LAB BLOOD ORDERABLES Final Res ult Performing Organization Address [facility] [place] [address] * (ABNORMAL) Procalcitonin, Plasma (10/25/2024 6:20 AM EDT) Procalcitonin, Plasma 1.14(H) <0.09 ng/mL 10/25/2024 7:[address] [facility] Blood Venous blood specimen / Unknown Venipuncture / Unknown 10/25/2024 6:20 AM EDT 10/25/2024 6:25 AM EDT [facility] - 10/25/2024 7:02 AM EDT Procalcitonin concentrations in healthy individuals are <0.09 ng/mL. Published data support the following interpretive risk assessment: An elevated procalcitonin result does not always indicate sepsis. Various non-infectious conditions are known to increase procalcitonin. Results should be considered in the context of clinical symptoms and other laboratory tests. Procalcitonin >2.0 ng/mL: Concentrations >2.0 ng/mL on the first day of ICU admission are associated with a higher risk of progression to severe sepsis and/or septic shock. The change in PCT over time may help predict 28 day mortality risk. Please consult [email or web address] for more information. Test performed at [facility]. us Saw Solano MD LAB BLOOD ORDERABLES Final Res ult Performing Organization Address City/[facility]/ZIP Co de Phone Number [facility] [address] [place] [address] * (ABNORMAL) Sedimentation Rate, Automated (10/25/2024 6:20 AM EDT) Sedimentation Rate 18(H) <15 mm/hr 2024 6:[address] [facility] Blood Venous blood specimen / Unknown Venipuncture / Unknown 10/25/2024 6:20 AM EDT 10/25/2024 6:26 AM EDT us Saw Solano MD LAB BLOOD ORDERABLES Final Res ult Performing Organization Address [facility] Co de Phone Number [facility] [address] [place] [address] * (ABNORMAL) C-Reactive Protein, Plasma (10/25/2024 6:20 AM EDT) CRP, Plasma 21.7(H) <=8.0 mg/L 10/25/2024 7:[address] [facility] Blood Venous blood specimen / Unknown Venipuncture / Unknown 10/25/2024 6:20 AM EDT 10/25/2024 6:[address] [facility] - 10/25/2024 7:02 AM EDT This CRP test is appropriate for assessment of infection, systemic inflammation and/or tissue injury. To assess cardiovascular disease risk order high sensitivity CRP (CRPH). us Saw Solano MD LAB BLOOD ORDERABLES Final Res ult [facility] [address] [place] [address] * (ABNORMAL) Basic Metabolic Panel, Plasma (10/25/2024 6:20 AM EDT) Glucose, Plasma 136(H) 74 - 99 mg/dL 10/25/2024 7:[address] [facility] BUN, Plasma 7 7 - 21 mg/dL 10/25/2024 7:[address] [facility] Creatinine, Plasma 0.67(L) 0.70 - 1.20 mg/dL 10/25/2024 7:[address] [facility] BUN/Creatinine Ratio 10 10/25/2024 7:[address] [facility] Sodium, Plasma 140 136 - 145 mmol/L 10/25/2024 7:[address] [facility] Potassium, Plasma 3.7 3.6 - 4.9 mmol/L 10/25/2024 7:[address] [facility] Chloride, Plasma 104 97 - 107 mmol/L 10/25/2024 7:[address] [facility] CO2, Plasma 24 22 - 29 mmol/L 10/25/2024 7:[address] [facility] Anion Gap 12 6 - 16 mmol/L 10/25/2024 7:[address] [facility] Total Calcium, Plasma 8.2(L) 8.9 - 10.2 mg/dL 10/25/2024 7:[address] [facility] eGFRcr 128.8 mL/min/1.7 3m*2 10/25/2024 7:[address] [facility] Comment:Reported eGFRcr in m L/min/1.73m2 is based the CKD-EPI 2020 equation that does not use a race coefficient. Blood Venous blood specimen / Unknown Venipuncture / Unknown 10/25/2024 6:20 AM EDT 10/25/2024 6:25 AM EDT us Saw Diazi MD LAB BLOOD ORDERABLES Final Res ult [facility] [address] [place] [address] * Phosphorus, Plasma (10/25/2024 6:20 AM EDT) Pathologist [facility] Phosphorus, Plasma 4.2 2.5 - 4.5 mg/dL 10/25/2024 7:[address] [facility] Blood Venous blood specimen / Unknown Venipuncture / Unknown 10/25/2024 6:20 AM EDT 10/25/2024 6:25 AM EDT us Saw Solano MD LAB BLOOD ORDERABLES Final Res ult Performing Organization Address City/[facility]/ZIP Co de Phone Number [facility] [address] [place] [address] * (ABNORMAL) CBC and Differential (10/25/2024 6:20 AM EDT) [facility] WBC Count 11.83(H) 3.70 - 10.30 10*3/uL LAB HEMATOLOGY METHOD 10/25/2024 6:[address] [facility] RBC Count 2.42(L) 4.60 - 6.10 10*6/uL LAB HEMATOLOGY METHOD 10/25/2024 6:[address] [facility] HGB 7.3(L) 13.7 - 17.5 g/dL LAB HEMATOLOGY METHOD 10/25/2024 6:[address] [facility] HCT 21.2(L) 40.0 - 51.0 % LAB HEMATOLOGY METHOD 10/25/2024 6:[address] [facility] Platelet Count 400(H) 155 - 369 10*3/uL LAB HEMATOLOGY METHOD 10/25/2024 6:[address] [facility] MCV 88 79 - 98 fL LAB HEMATOLOGY METHOD 10/25/2024 6:[address] [facility] MCH 30.2 26.0 - 32.0 pg LAB HEMATOLOGY METHOD 10/25/2024 6:[address] [facility] MCHC 34.4 30.7 - 35.5 g/dL LAB HEMATOLOGY METHOD 10/25/2024 6:[address] [facility] RDW 18.6(H) 11.5 - 14.5 % LAB HEMATOLOGY METHOD 10/25/2024 6:[address] [facility] MPV 8.9 8.8 - 12.5 fL LAB HEMATOLOGY METHOD 10/25/2024 6:[address] [facility] nRBC 3.6(H) <=0.0 per 100 WBCs LAB HEMATOLOGY METHOD 10/25/2024 6:[address] [facility] Differential Type Automated LAB HEMATOLOGY METHOD 10/25/2024 6:[address] [facility] Neutrophils % 57 % LAB HEMATOLOGY METHOD 10/25/2024 6:[address] [facility] Lymphocytes % 30 % LAB HEMATOLOGY METHOD 10/25/2024 6:[address] [facility] Monocytes % 8 % LAB HEMATOLOGY METHOD 10/25/2024 6:[address] [facility] Eosinophils % 4 % LAB HEMATOLOGY METHOD 10/25/2024 6:[address] [facility] Basophils % 1 % LAB HEMATOLOGY METHOD 10/25/2024 6:[address] [facility] Immature Granulocytes % 0 % LAB HEMATOLOGY METHOD 10/25/2024 6:[address] [facility] Neutrophils Absolute 6.61(H) 1.60 - 6.10 10*3/uL LAB HEMATOLOGY METHOD 10/25/2024 6:[address] [facility] Lymphocytes Absolute 3.58 1.20 - 3.90 10*3/uL LAB HEMATOLOGY METHOD 10/25/2024 6:[address] [facility] Monocytes Absolute 0.98(H) 0.30 - 0.90 10*3/uL LAB HEMATOLOGY METHOD 10/25/2024 6:[address] [facility] Eosinophils Absolute 0.50 0.00 - 0.50 10*3/uL LAB HEMATOLOGY METHOD 10/25/2024 6:[address] [facility] Basophils Absolute 0.11(H) 0.00 - 0.10 10*3/uL LAB HEMATOLOGY METHOD 10/25/2024 6:[address] [facility] Immature Granulocytes Absolute 0.05 0.00 - 0.06 10*3/uL LAB HEMATOLOGY METHOD 10/25/2024 6:[address] [facility] Blood Venous blood specimen / Unknown Venipuncture / Unknown 10/25/2024 6:20 AM EDT 10/25/2024 6:[address] [facility] - 10/25/2024 6:33 AM EDT Therapeutic decision making should be based on absolute values, rather than percentages. us Saw Solano MD LAB BLOOD ORDERABLES Final Res ult [facility] [address] [place] [address] * (ABNORMAL) Bacterial ID Gram Positive (10/24/2024 10:37 AM EDT) Pathologist [facility] Staphylococcus Result Detected( A) Not Detected 10/26/2024 8:[address] [facility] Comment:Assess if contaminan t or clinically relevant pathogen. Consider clinical stability and immune status of patient. MECA Result Detected( A) Not Detected 10/26/2024 8:[address] [facility] Blood Structure of part of left upper limb / Unknown Venipuncture / Unknown 10/24/2024 10:37 AM EDT 10/24/2024 11:[address] [facility] - 10/26/2024 8:38 AM EDT Analytes include: Bacillus cereus group, Bacillus subtilis group, Corynebacterium, Cutibacterium acnes (P acnes), Enterococcus, Enterococcus faecalis, Enterococcus faecium, Lactobacillus, Listeria, Listeria monocytogenes, Micrococcus, Staphylococcus, Staphylococcus aureus, Staphylococcus epidermidis, Stapylcoccus lugdunesis, Streptococcus, Streptococcus agalactiae, Streptococcus anginosus group, Streptococcus pneumoniae, Streptococcus pyogenes, Wharton gram negative target, Wharton Miguel target and mecA, mecC, Mine and vanB resistance genes. NOTE: A Not Detected result for result for a resistance gene does not indicate susceptibility to antimicrobials by mechanisms other than carrying the resistance genes detected by the BCID-GP assay. . WHARTON MIGUEL: Inclusive of Miguel albicans, Miguel glabrata, Pichia kudriavzevii (formerly Miguel krusei) and Miguel parapsilosis only. . WHARTON GRAM NEGATIVE: Includes but not limited to Acinetobacter, Bacteroides, Enterobacteriaceae, Neisseria, Pseudomonas, Serratia, Stenotrophomonas maltophilia. . Reference Value: Not detected for all analytes tested. Saw Solano MD LAB MICROBIOLOGY - GENERAL ORD ERABLES Final Result Performing Organization Address [facility] Co de Phone Number [facility] [address] [place] [address] * (ABNORMAL) Blood Culture (Aerobic/Anaerobet Set) (10/24/2024 10:37 AM EDT) Pathologist [facility] Culture Staphylococcus coagulase negative(AA) YUNIER 10/30/2024 6:[address] [facility] Comment: Isolated from aerobic culture bottle only. Isolated from one bottle only in a 24-hour period. If workup required, contact bacteriology at [facility]. This organism may be associated with a contaminated culture. The organism value for this result has been updated. These results have been appended to the previously preliminary verified report. Gram Stain Gram positive cocci in clusters(AA) 10/30/2024 6:[address] [facility] Comment: Organism seen in Aerobic Blood Culture Bottle. Positivity Date and Time to Detection: 10/26/2024 at 01 Day(s) and 19 Hour(s). This is an appended report. These results have been appended to a previously preliminary verified report. Blood Structure of part of left upper limb / Unknown Venipuncture / Unknown 10/24/2024 10:37 AM EDT 10/24/2024 11:01 AM EDT Saw Solano MD LAB MICROBIOLOGY - GENERAL ORD ERABLES Final Result Performing Organization Address [facility] Co de Phone Number [facility] [address] [place] [address] * ECHO, ADULT TRANSTHORACIC LIMITED W/ COLOR AND DOPPLER (10/24/2024 10:22 AM EDT) Pathologist [facility] BSA 2.00 m2 LISSETTE ISCV Height 182.9 LISSETTE ISCV Weight 78.5 LISSETTE ISCV RV s' Gregorio 13.2 cm/s LISSETTE ISCV TAPSE 29 mm LISSETTE ISCV LV EDV(MOD-4ch) 160 mL LISSETTE ISCV LV ESV(MOD4ch) 62 mL LISSETTE ISCV EF(MOD-sp4) 61 % LISSETTE ISCV LV EDV(MOD-2ch) 129 mL LISSETTE ISCV EDV(MOD-bp) 145 mL LISSETTE ISCV LV ESV(MOD2ch) 70 mL LISSETTE ISCV EF(MOD-sp2) 46 % LISSETTE ISCV ESV(MOD-bp) 66 mL LISSETTE ISCV EF(MOD-bp) 54 % LISSETTE ISCV LVLs ap2 7.7 mm LISSETTE ISCV IVSd 8 mm LISSETTE ISCV LVIDd 57 mm LISSETTE ISCV LVPWd 9 mm LISSETTE ISCV LV MASS(C)D 183 g LISSETTE ISCV [facility] CV ECHO LV MASS INDEX 92 g/m2 LISSETTE ISCV LV RWT 0.30 mm LISSETTE ISCV LVIDs 42 mm LISSETTE ISCV TR Vmax 311.5 cm/s LISSETTE ISCV TR Max PG 39 mmHG LISSETTE ISCV Ao Root Diam 38 mm LISSETTE ISCV MPA diam 21 mm LISSETTE ISCV MPA area 3.5 cm2 LISSETTE ISCV Anatomical Region Laterality Modality Echocardiography Narrative 10/24/2024 10:53 AM EDT Left Ventricle: The left ventricular systolic function is normal. The LVEF is visually estimated at 55 - 60%. Unable to assess diastolic function. Right Ventricle: The right ventricular systolic function is normal. Unable to estimate the right ventricular systolic pressure (RVSP) due to inadequate TR signal. Right Atrium: There is a catheter/lead present in the right atrium. The catheter is deep within the atrium to the level of the tricuspid valve. IVC/SVC: Based on the IVC size and respiratory variation, the estimated right atrial pressure is 3mmHg. All cardiac valves were reasonably well interrogated with 2D imaging and/or Doppler assessment and no significant valve regurgitation or stenosis is seen. There is no definite echocardiographic evidence of endocarditis. Compared to the most recently available prior study, and allowing for differences in image quality and technique, there is no significant interval change noted. Left Ventricle The left ventricle is normal size. The left ventricular systolic function is normal. The LVEF is visually estimated at 55 - 60%. Unable to assess diastolic function. No regional wall motion abnormalities are seen. Right Ventricle The right ventricle is normal in size. The right ventricular systolic function is normal. Unable to estimate the right ventricular systolic pressure (RVSP) due to inadequate TR signal. Left Atrium The left atrial size is normal. The interatrial septum is intact with no evidence for an atrial septal defect. Right Atrium The right atrial size is normal. There is a catheter/lead present in the right atrium. The catheter is deep within the atrium to the level of the tricuspid valve. IVC/SVC Based on the IVC size and respiratory variation, the estimated right atrial pressure is 3mmHg. Mitral Valve The mitral valve leaflets are normal in appearance with no evidence of mitral valve prolapse. There is no mitral valve vegetation. There is no mitral regurgitation. There is no mitral stenosis. Tricuspid Valve The tricuspid valve is normal in appearance. There is no tricuspid valve vegetation. There is no tricuspid regurgitation. There is no tricuspid stenosis. Aortic Valve The aortic valve appears to be trileaflet. There is no aortic valve vegetation. There is no valvular regurgitation. There is no hemodynamically significant valvular aortic stenosis. Pulmonic Valve The pulmonic valve is normal in appearance. There is no pulmonic valve vegetation. There is no pulmonic regurgitation. There is no pulmonic stenosis. Pericardium No pericardial effusion. Great Vessels The aortic root is normal in size. The sinus of Valsalva (aortic root) diameter is 38 mm by leading edge to leading edge method. The main pulmonary artery is normal in size. Study Details A limited transthoracic echocardiogram using limited 2D, color flow Doppler and limited spectral Doppler imaging was performed. Overall the study quality was adequate. Height: 182.9 cm. Weight: 78.5 kg. BSA: 2.00 m2. Study Recommendation All cardiac valves were reasonably well interrogated with 2D imaging and/or Doppler assessment and no significant valve regurgitation or stenosis is seen. There is no definite echocardiographic evidence of endocarditis. Compared to the most recently available prior study, and allowing for differences in image quality and technique, there is no significant interval change noted. Michael Andrade MD CV ECHO PROCEDURES Final Result * (ABNORMAL) Procalcitonin, Plasma (10/24/2024 6:29 AM EDT) Procalcitonin, Plasma 2.17(H) <0.09 ng/mL 10/24/2024 7:[address] [facility] Blood Venous blood specimen / Unknown Venipuncture / Unknown 10/24/2024 6:29 AM EDT 10/24/2024 6:[address] [facility] - 10/24/2024 7:33 AM EDT Procalcitonin concentrations in healthy individuals are <0.09 ng/mL. Published data support the following interpretive risk assessment: An elevated procalcitonin result does not always indicate sepsis. Various non-infectious conditions are known to increase procalcitonin. Results should be considered in the context of clinical symptoms and other laboratory tests. Procalcitonin >2.0 ng/mL: Concentrations >2.0 ng/mL on the first day of ICU admission are associated with a higher risk of progression to severe sepsis and/or septic shock. The change in PCT over time may help predict 28 day mortality risk. Please consult www.vkguql-lnw-guvqqxgfqu.com for more information. Test performed at [facility]. us Saw Solano MD LAB BLOOD ORDERABLES Final Res ult Performing Organization Address City/[facility]/ZIP Co de Phone Number [facility] [address] [place] [address] * (ABNORMAL) Sedimentation Rate, Automated (10/24/2024 6:29 AM EDT) Sedimentation Rate 17(H) <15 mm/hr 2024 6:[address] [facility] Blood Venous blood specimen / Unknown Venipuncture / Unknown 10/24/2024 6:29 AM EDT 10/24/2024 6:37 AM EDT us Saw Solano MD LAB BLOOD ORDERABLES Final Res ult [facility] [address] [place] [address] * (ABNORMAL) C-Reactive Protein, Plasma (10/24/2024 6:29 AM EDT) CRP, Plasma 29.6(H) <=8.0 mg/L 10/24/2024 7:[address] [facility] Blood Venous blood specimen / Unknown Venipuncture / Unknown 10/24/2024 6:29 AM EDT 10/24/2024 6:[address] [facility] - 10/24/2024 7:14 AM EDT This CRP test is appropriate for assessment of infection, systemic inflammation and/or tissue injury. To assess cardiovascular disease risk order high sensitivity CRP (CRPH). us Saw Solano MD LAB BLOOD ORDERABLES Final Res ult [facility] [address] [place] [address] * (ABNORMAL) Basic Metabolic Panel, Plasma (10/24/2024 6:29 AM EDT) Glucose, Plasma 92 74 - 99 mg/dL 10/24/2024 7:[address] [facility] BUN, Plasma 6(L) 7 - 21 mg/dL 10/24/2024 7:[address] [facility] Creatinine, Plasma 0.66(L) 0.70 - 1.20 mg/dL 10/24/2024 7:[address] [facility] BUN/Creatinine Ratio 9 10/24/2024 7:[address] [facility] Sodium, Plasma 138 136 - 145 mmol/L 10/24/2024 7:[address] [facility] Potassium, Plasma 3.6 3.6 - 4.9 mmol/L 10/24/2024 7:[address] [facility] Chloride, Plasma 104 97 - 107 mmol/L 10/24/2024 7:[address] [facility] CO2, Plasma 24 22 - 29 mmol/L 10/24/2024 7:[address] [facility] Anion Gap 10 6 - 16 mmol/L 10/24/2024 7:[address] [facility] Total Calcium, Plasma 8.3(L) 8.9 - 10.2 mg/dL 10/24/2024 7:[address] [facility] eGFRcr 129.4 mL/min/1.7 3m*2 10/24/2024 7:[address] [facility] Comment:Reported eGFRcr in m L/min/1.73m2 is based the CKD-EPI 2020 equation that does not use a race coefficient. Blood Venous blood specimen / Unknown Venipuncture / Unknown 10/24/2024 6:29 AM EDT 10/24/2024 6:37 AM EDT us Saw Solano MD LAB BLOOD ORDERABLES Final Res ult Performing Organization Address [facility] Co de Phone Number [facility] [address] [place] [address] * (ABNORMAL) Phosphorus, Plasma (10/24/2024 6:29 AM EDT) Phosphorus, Plasma 4.6(H) 2.5 - 4.5 mg/dL 10/24/2024 7:[address] [facility] Blood Venous blood specimen / Unknown Venipuncture / Unknown 10/24/2024 6:29 AM EDT 10/24/2024 6:37 AM EDT us Saw Solano MD LAB BLOOD ORDERABLES Final Res ult Performing Organization Address [facility] Co de Phone Number [facility] [address] [place] [address] * (ABNORMAL) CBC and Differential (10/24/2024 6:29 AM EDT) WBC Count 9.97 3.70 - 10.30 10*3/uL LAB HEMATOLOGY METHOD 10/24/2024 6:[address] [facility] RBC Count 2.75(L) 4.60 - 6.10 10*6/uL LAB HEMATOLOGY METHOD 10/24/2024 6:[address] [facility] HGB 8.1(L) 13.7 - 17.5 g/dL LAB HEMATOLOGY METHOD 10/24/2024 6:[address] [facility] HCT 23.5(L) 40.0 - 51.0 % LAB HEMATOLOGY METHOD 10/24/2024 6:[address] [facility] Platelet Count 382(H) 155 - 369 10*3/uL LAB HEMATOLOGY METHOD 10/24/2024 6:[address] [facility] MCV 86 79 - 98 fL LAB HEMATOLOGY METHOD 10/24/2024 6:[address] [facility] MCH 29.5 26.0 - 32.0 pg LAB HEMATOLOGY METHOD 10/24/2024 6:[address] [facility] MCHC 34.5 30.7 - 35.5 g/dL LAB HEMATOLOGY METHOD 10/24/2024 6:[address] [facility] RDW 18.6(H) 11.5 - 14.5 % LAB HEMATOLOGY METHOD 10/24/2024 6:[address] [facility] MPV 8.8 8.8 - 12.5 fL LAB HEMATOLOGY METHOD 10/24/2024 6:[address] [facility] nRBC 4.1(H) <=0.0 per 100 WBCs LAB HEMATOLOGY METHOD 10/24/2024 6:[address] [facility] Differential Type Automated LAB HEMATOLOGY METHOD 10/24/2024 6:[address] [facility] Neutrophils % 58 % LAB HEMATOLOGY METHOD 10/24/2024 6:[address] [facility] Lymphocytes % 27 % LAB HEMATOLOGY METHOD 10/24/2024 6:[address] [facility] Monocytes % 10 % LAB HEMATOLOGY METHOD 10/24/2024 6:[address] [facility] Eosinophils % 3 % LAB HEMATOLOGY METHOD 10/24/2024 6:[address] [facility] Basophils % 1 % LAB HEMATOLOGY METHOD 10/24/2024 6:[address] [facility] Immature Granulocytes % 1 % LAB HEMATOLOGY METHOD 10/24/2024 6:[address] [facility] Neutrophils Absolute 5.77 1.60 - 6.10 10*3/uL LAB HEMATOLOGY METHOD 10/24/2024 6:[address] [facility] Lymphocytes Absolute 2.73 1.20 - 3.90 10*3/uL LAB HEMATOLOGY METHOD 10/24/2024 6:[address] [facility] Monocytes Absolute 1.00(H) 0.30 - 0.90 10*3/uL LAB HEMATOLOGY METHOD 10/24/2024 6:[address] [facility] Eosinophils Absolute 0.33 0.00 - 0.50 10*3/uL LAB HEMATOLOGY METHOD 10/24/2024 6:[address] [facility] Basophils Absolute 0.09 0.00 - 0.10 10*3/uL LAB HEMATOLOGY METHOD 10/24/2024 6:[address] [facility] Immature Granulocytes Absolute 0.05 0.00 - 0.06 10*3/uL LAB HEMATOLOGY METHOD 10/24/2024 6:[address] [facility] Blood Venous blood specimen / Unknown Venipuncture / Unknown 10/24/2024 6:29 AM EDT 10/24/2024 6:[address] [facility] - 10/24/2024 6:46 AM EDT Therapeutic decision making should be based on absolute values, rather than percentages. us Saw Solano MD LAB BLOOD ORDERABLES Final Res ult [facility] [address] [place] [address] * (ABNORMAL) Hepatic Function Panel (10/24/2024 6:29 AM EDT) Direct Bilirubin, Plasma 0.5(H) <=0.3 mg/dL 10/24/2024 7:[address] [facility] Alkaline Phosphatase, Plasma 65 40 - 115 U/L 10/24/2024 7:[address] [facility] Total Bilirubin, Plasma 1.8(H) 0.2 - 1.1 mg/dL 10/24/2024 7:[address] [facility] Albumin, Plasma 3.5 3.5 - 5.2 g/dL 10/24/2024 7:14 AM EDT [facility] Total Protein 7.6 6.3 - 7.9 g/dL 10/24/2024 7:[address] [facility] ALT, Plasma 34 10 - 50 U/L 10/24/2024 7:[address] [facility] AST, Plasma 69(H) 10 - 50 U/L 10/24/2024 7:[address] [facility] Blood Venous blood specimen / Unknown Venipuncture / Unknown 10/24/2024 6:29 AM EDT 10/24/2024 6:37 AM EDT us Saw Solano MD LAB BLOOD ORDERABLES Final Res ult Performing Organization Address [facility]/ZIP Co de Phone Number [facility] [address] [place] [address] * Blood Culture (Aerobic/Anaerobet Set) (10/23/2024 4:45 PM EDT) Culture No growth at day 5 YUNIER 10/28/2024 6:[address] [facility] Blood Blood sample taken from central line / Unknown (Port) Long-term Catheter / Unknown 10/23/2024 4:45 PM EDT 10/23/2024 5:19 PM EDT us Saw Solano MD LAB MICROBIOLOGY - GENERAL ORD ERABLES Final Result Performing Organization Address [facility]/ZIP Co de Phone Number [facility] [address] [place] [address] * (ABNORMAL) CBC W/O Differential (10/23/2024 6:14 AM EDT) WBC Count 12.51(H) 3.70 - 10.30 10*3/uL LAB HEMATOLOGY METHOD 10/23/2024 6:[address] [facility] RBC Count 2.56(L) 4.60 - 6.10 10*6/uL LAB HEMATOLOGY METHOD 10/23/2024 6:[address] [facility] HGB 7.5(L) 13.7 - 17.5 g/dL LAB HEMATOLOGY METHOD 10/23/2024 6:[address] [facility] HCT 22.2(L) 40.0 - 51.0 % LAB HEMATOLOGY METHOD 10/23/2024 6:[address] [facility] Platelet Count 433(H) 155 - 369 10*3/uL LAB HEMATOLOGY METHOD 10/23/2024 6:[address] [facility] MCV 87 79 - 98 fL LAB HEMATOLOGY METHOD 10/23/2024 6:[address] [facility] MCH 29.3 26.0 - 32.0 pg LAB HEMATOLOGY METHOD 10/23/2024 6:[address] [facility] MCHC 33.8 30.7 - 35.5 g/dL LAB HEMATOLOGY METHOD 10/23/2024 6:[address] [facility] RDW 17.9(H) 11.5 - 14.5 % LAB HEMATOLOGY METHOD 10/23/2024 6:[address] [facility] MPV 9.0 8.8 - 12.5 fL LAB HEMATOLOGY METHOD 10/23/2024 6:[address] [facility] nRBC 2.2(H) <=0.0 per 100 WBCs LAB HEMATOLOGY METHOD 10/23/2024 6:[address] [facility] Blood Venous blood specimen / Unknown Venipuncture / Unknown 10/23/2024 6:14 AM EDT 10/23/2024 6:22 AM EDT us Michael Andrade MD LAB BLOOD ORDERABLES Final Resu lt [facility] [address] [place] [address] * (ABNORMAL) Comprehensive Metabolic Panel, Plasma (10/23/2024 6:14 AM EDT) Glucose, Plasma 104(H) 74 - 99 mg/dL 10/23/2024 7:[address] [facility] BUN, Plasma 7 7 - 21 mg/dL 10/23/2024 7:[address] [facility] Creatinine, Plasma 0.68(L) 0.70 - 1.20 mg/dL 10/23/2024 7:[address] [facility] BUN/Creatinine Ratio 10 10/23/2024 7:[address] [facility] Sodium, Plasma 138 136 - 145 mmol/L 10/23/2024 7:[address] [facility] Potassium, Plasma 4.1 3.6 - 4.9 mmol/L 10/23/2024 7:[address] [facility] Chloride, Plasma 107 97 - 107 mmol/L 10/23/2024 7:[address] [facility] CO2, Plasma 25 22 - 29 mmol/L 10/23/2024 7:[address] [facility] Anion Gap 6 6 - 16 mmol/L 10/23/2024 7:[address] [facility] Total Calcium, Plasma 8.2(L) 8.9 - 10.2 mg/dL 10/23/2024 7:[address] [facility] Total Protein 7.6 6.3 - 7.9 g/dL 10/23/2024 7:[address] [facility] Albumin, Plasma 3.5 3.5 - 5.2 g/dL 10/23/2024 7:[address] [facility] AST, Plasma 74(H) 10 - 50 U/L 10/23/2024 7:[address] [facility] ALT, Plasma 37 10 - 50 U/L 10/23/2024 7:[address] [facility] Alkaline Phosphatase, Plasma 68 40 - 115 U/L 10/23/2024 7:[address] [facility] Total Bilirubin, Plasma 1.6(H) 0.2 - 1.1 mg/dL 10/23/2024 7:[address] [facility] eGFRcr 128.2 mL/min/1.7 3m*2 10/23/2024 7:[address] [facility] Comment:Reported eGFRcr in m L/min/1.73m2 is based the CKD-EPI 2020 equation that does not use a race coefficient. Blood Venous blood specimen / Unknown Venipuncture / Unknown 10/23/2024 6:14 AM EDT 10/23/2024 6:22 AM EDT us Michael Andrade MD LAB BLOOD ORDERABLES Final Resu lt [facility] [address] [place] [address] * Magnesium, Plasma (10/23/2024 6:14 AM EDT) Magnesium, Plasma 1.9 1.9 - 2.4 mg/dL 10/23/2024 7:[address] [facility] Blood Venous blood specimen / Unknown Venipuncture / Unknown 10/23/2024 6:14 AM EDT 10/23/2024 6:22 AM EDT us Michael Andrade MD LAB BLOOD ORDERABLES Final Resu lt Performing Organization Address [facility] Co de Phone Number [facility] [address] [place] [address] * (ABNORMAL) C-Reactive Protein, Plasma (10/23/2024 6:14 AM EDT) CRP, Plasma 44.2(H) <=8.0 mg/L 10/23/2024 7:[address] [facility] Blood Venous blood specimen / Unknown Venipuncture / Unknown 10/23/2024 6:14 AM EDT 10/23/2024 6:[address] [facility] - 10/23/2024 7:42 AM EDT This CRP test is appropriate for assessment of infection, systemic inflammation and/or tissue injury. To assess cardiovascular disease risk order high sensitivity CRP (CRPH). us Michael Andrade MD LAB BLOOD ORDERABLES Final Resu lt Performing Organization Address [facility] Co de Phone Number [facility] [address] [place] [address] * Cystatin C (10/23/2024 6:14 AM EDT) Cystatin C 0.95 0.61 - 0.95 mg/L 10/23/2024 9:[address] [facility] Blood Venous blood specimen / Unknown Venipuncture / Unknown 10/23/2024 6:14 AM EDT 10/23/2024 6:22 AM EDT us Michael Andrade MD LAB BLOOD ORDERABLES Final Resu lt Performing Organization Address City/[facility]/ZIP Co de Phone Number [facility] [address] [place] [address] * Phosphorus, Plasma (10/23/2024 6:14 AM EDT) Phosphorus, Plasma 4.4 2.5 - 4.5 mg/dL 10/23/2024 7:[address] [facility] Blood Venous blood specimen / Unknown Venipuncture / Unknown 10/23/2024 6:14 AM EDT 10/23/2024 6:22 AM EDT us Michael Andrade MD LAB BLOOD ORDERABLES Final Resu lt Performing Organization Address [facility] Co de Phone Number [facility] [address] [place] [address] * Transfuse RBC, Sickle Cell (Hgb S) Negative (10/22/2024 5:42 PM EDT) us Michael Andrade MD BLOOD TRANSFUSION ORDERABLES Fi nal Result * Transfuse RBC: 1 Units, Sickle Cell (Hgb S) Negative (10/22/2024 5:42 PM EDT) us Michael Andrade MD BLOOD TRANSFUSION ORDERABLES Fi nal Result * Type and screen (10/22/2024 12:54 PM EDT) ABO/Rh O Positive 10/22/2024 12:13 PM EDT BLO[facility] Comment:Patient types mixed field due to transfused cells Antibody Screen Negative 10/22/2024 12:13 PM EDT [facility]LO[facility] Specimen Expiration 10/25/2024 23:59 10/22/2024 12:13 PM EDT [facility]LO[facility] Blood Venous blood specimen / Unknown Venipuncture / Unknown 10/22/2024 12:54 PM EDT 10/22/2024 1:11 PM EDT us Michael Andrade MD LAB BLOOD BANK TEST ORDERABLES Final Result Performing Organization Address City/[facility] Co de Phone Number BLOOD BANK [address] [place] [address], * Prepare Leukocyte Reduced RBC: 1 Units, Sickle Cell (Hgb S) Negative, Leukocyte reduced (CMV reduced risk) (10/22/2024 12:14 PM EDT) Pathologist [facility] Product Code [id number] BLOO D BANK Dispense Status Transfused BLOOD BANK Blood Expiration Date [id number] BLOOD BANK Unit Number [id number] B LOOD BANK Product Blood Type 9500 BLOOD BANK Blood Type O- BLOOD BANK Crossmatch Compatible BLOOD BANK Other Michael Andrade MD BLOOD BANK PRODUCT ORDERABLES F inal Result BLOOD BANK [address] [place] [address], * (ABNORMAL) Bacterial ID Gram Positive (10/22/2024 5:16 AM EDT) [facility] Staphylococcus Result Detected( A) Not Detected 10/23/2024 4:[address] [facility] Comment:Assess if contaminan t or clinically relevant pathogen. Consider clinical stability and immune status of patient. Staphylococcus epidermidis Result Detected( A) Not Detected 10/23/2024 4:[address] [facility] Comment:Assess if contaminan t or clinically relevant pathogen. Consider clinical stability and immune status of patient. MECA Result Detected( A) Not Detected 10/23/2024 4:[address] [facility] Blood Blood sample taken from central line / Unknown (Port) Long-term Catheter / Unknown 10/22/2024 5:16 AM EDT 10/22/2024 6:16 AM EDT Narrative [facility] - 10/23/2024 4:11 PM EDT Analytes include: Bacillus cereus group, Bacillus subtilis group, Corynebacterium, Cutibacterium acnes (P acnes), Enterococcus, Enterococcus faecalis, Enterococcus faecium, Lactobacillus, Listeria, Listeria monocytogenes, Micrococcus, Staphylococcus, Staphylococcus aureus, Staphylococcus epidermidis, Stapylcoccus lugdunesis, Streptococcus, Streptococcus agalactiae, Streptococcus anginosus group, Streptococcus pneumoniae, Streptococcus pyogenes, Wharton gram negative target, Wharton Miguel target and mecA, mecC, Mine and vanB resistance genes. NOTE: A Not Detected result for result for a resistance gene does not indicate susceptibility to antimicrobials by mechanisms other than carrying the resistance genes detected by the BCID-GP assay. . WHARTON MIGUEL: Inclusive of Miguel albicans, Miguel glabrata, Pichia kudriavzevii (formerly Miguel krusei) and Miguel parapsilosis only. . WHARTON GRAM NEGATIVE: Includes but not limited to Acinetobacter, Bacteroides, Enterobacteriaceae, Neisseria, Pseudomonas, Serratia, Stenotrophomonas maltophilia. . Reference Value: Not detected for all analytes tested. Michael Andrade MD LAB MICROBIOLOGY - GENERAL JENNIFER ALLEN Final Result [facility] [address] [place] [address] * (ABNORMAL) CBC W/O Differential (10/22/2024 5:16 AM EDT) [facility] WBC Count 13.29(H) 3.70 - 10.30 10*3/uL LAB HEMATOLOGY METHOD 10/22/2024 5:[address] [facility] RBC Count 2.21(L) 4.60 - 6.10 10*6/uL LAB HEMATOLOGY METHOD 10/22/2024 5:[address] [facility] HGB 6.4(LL) 13.7 - 17.5 g/dL LAB HEMATOLOGY METHOD 10/22/2024 5:[address] [facility] HCT 18.9(LL) 40.0 - 51.0 % LAB HEMATOLOGY METHOD 10/22/2024 5:[address] [facility] Platelet Count 408(H) 155 - 369 10*3/uL LAB HEMATOLOGY METHOD 10/22/2024 5:[address] [facility] MCV 86 79 - 98 fL LAB HEMATOLOGY METHOD 10/22/2024 5:[address] [facility] MCH 29.0 26.0 - 32.0 pg LAB HEMATOLOGY METHOD 10/22/2024 5:[address] [facility] MCHC 33.9 30.7 - 35.5 g/dL LAB HEMATOLOGY METHOD 10/22/2024 5:[address] [facility] RDW 18.1(H) 11.5 - 14.5 % LAB HEMATOLOGY METHOD 10/22/2024 5:[address] [facility] MPV 8.7(L) 8.8 - 12.5 fL LAB HEMATOLOGY METHOD 10/22/2024 5:[address] [facility] nRBC 1.5(H) <=0.0 per 100 WBCs LAB HEMATOLOGY METHOD 10/22/2024 5:[address] [facility] Blood Venous blood specimen / Unknown Venipuncture / Unknown 10/22/2024 5:16 AM EDT 10/22/2024 5:31 AM EDT us Michael Andrade MD LAB BLOOD ORDERABLES Final Resu lt Performing Organization Address [facility]/ZIP Co de Phone Number [facility] [address] [place] [address] * (ABNORMAL) Cystatin C (10/22/2024 5:16 AM EDT) Cystatin C 1.03(H) 0.61 - 0.95 mg/L 10/22/2024 6:00 AM EDT [facility] Blood Venous blood specimen / Unknown Venipuncture / Unknown 10/22/2024 5:16 AM EDT 10/22/2024 5:30 AM EDT us Michael Andrade MD LAB BLOOD ORDERABLES Final Resu lt [facility] [address] [place] [address] * (ABNORMAL) C-Reactive Protein, Plasma (10/22/2024 5:16 AM EDT) CRP, Plasma 47.2(H) <=8.0 mg/L 10/22/2024 6:[address] [facility] Blood Venous blood specimen / Unknown Venipuncture / Unknown 10/22/2024 5:16 AM EDT 10/22/2024 5:[address] [facility] - 10/22/2024 6:00 AM EDT This CRP test is appropriate for assessment of infection, systemic inflammation and/or tissue injury. To assess cardiovascular disease risk order high sensitivity CRP (CRPH). us Michael Andrade MD LAB BLOOD ORDERABLES Final Resu lt Performing Organization Address [facility]/ZIP Co de Phone Number [facility] [address] [place] [address] * Phosphorus, Plasma (10/22/2024 5:16 AM EDT) Phosphorus, Plasma 4.5 2.5 - 4.5 mg/dL 10/22/2024 6:[address] [facility] Blood Venous blood specimen / Unknown Venipuncture / Unknown 10/22/2024 5:16 AM EDT 10/22/2024 5:30 AM EDT us Michael Andrade MD LAB BLOOD ORDERABLES Final Resu lt Performing Organization Address [facility] Co de Phone Number [facility] [address] [place] [address] * (ABNORMAL) Magnesium, Plasma (10/22/2024 5:16 AM EDT) Magnesium, Plasma 1.7(L) 1.9 - 2.4 mg/dL 10/22/2024 6:[address] [facility] Blood Venous blood specimen / Unknown Venipuncture / Unknown 10/22/2024 5:16 AM EDT 10/22/2024 5:30 AM EDT us Michael Andrade MD LAB BLOOD ORDERABLES Final Resu lt Performing Organization Address [facility]/ZIP Co de Phone Number [facility] [address] [place] [address] * (ABNORMAL) Comprehensive Metabolic Panel, Plasma (10/22/2024 5:16 AM EDT) Glucose, Plasma 91 74 - 99 mg/dL 10/22/2024 6:[address] [facility] BUN, Plasma 7 7 - 21 mg/dL 10/22/2024 6:[address] [facility] Creatinine, Plasma 0.70 0.70 - 1.20 mg/dL 10/22/2024 6:[address] [facility] BUN/Creatinine Ratio 10 10/22/2024 6:[address] [facility] Sodium, Plasma 137 136 - 145 mmol/L 10/22/2024 6:[address] [facility] Potassium, Plasma 3.6 3.6 - 4.9 mmol/L 10/22/2024 6:[address] [facility] Chloride, Plasma 105 97 - 107 mmol/L 10/22/2024 6:[address] [facility] CO2, Plasma 22 22 - 29 mmol/L 10/22/2024 6:[address] [facility] Anion Gap 10 6 - 16 mmol/L 10/22/2024 6:[address] [facility] Total Calcium, Plasma 8.1(L) 8.9 - 10.2 mg/dL 10/22/2024 6:[address] [facility] Total Protein 7.3 6.3 - 7.9 g/dL 10/22/2024 6:[address] [facility] Albumin, Plasma 3.4(L) 3.5 - 5.2 g/dL 10/22/2024 6:[address] [facility] AST, Plasma 76(H) 10 - 50 U/L 10/22/2024 6:[address] [facility] ALT, Plasma 41 10 - 50 U/L 10/22/2024 6:[address] [facility] Alkaline Phosphatase, Plasma 60 40 - 115 U/L 10/22/2024 6:[address] [facility] Total Bilirubin, Plasma 2.0(H) 0.2 - 1.1 mg/dL 10/22/2024 6:[address] [facility] eGFRcr 127.1 mL/min/1.7 3m*2 10/22/2024 6:[address] [facility] Comment:Reported eGFRcr in m L/min/1.73m2 is based the CKD-EPI 2020 equation that does not use a race coefficient. Blood Venous blood specimen / Unknown Venipuncture / Unknown 10/22/2024 5:16 AM EDT 10/22/2024 5:30 AM EDT us Michael Andrade MD LAB BLOOD ORDERABLES Final Resu lt Performing Organization Address [facility] de Phone Number [facility] [address] [place] [address] * (ABNORMAL) Hepatitis B Core Total Antibody IgG,IgM (10/22/2024 5:16 AM EDT) Hepatitis B Core Total Antibody IgG,IgM Positive(A ) Negative 10/22/2024 7:13 AM EDT [facility] Blood Venous blood specimen / Unknown Venipuncture / Unknown 10/22/2024 5:16 AM EDT 10/22/2024 5:30 AM EDT us Michael Andrade MD LAB BLOOD ORDERABLES Final Resu lt Performing Organization Address [facility] de Phone Number [facility] [address] [place] [address] * Hepatitis B Surface Antibody, Quantitative (10/22/2024 5:16 AM EDT) Hepatitis B Surface Antibody, Quantitative <8.00 NonReactiv e: <8, Grayzone: 8 - <12, Reactive: >= 12 mIU/mL 10/22/2024 6:[address] [facility] Comment: Nonreactive. Individual is considered not immune to HBV infection. Blood Venous blood specimen / Unknown Venipuncture / Unknown 10/22/2024 5:16 AM EDT 10/22/2024 5:30 AM EDT us Michael Andrade MD LAB BLOOD ORDERABLES Final Resu lt Performing Organization Address [facility] Co de Phone Number [facility] [address] [place] [address] * (ABNORMAL) Blood Culture (Aerobic/Anaerobet Set) (10/22/2024 5:16 AM EDT) Culture Staphylococcus coagulase negative(AA) YUNIER 10/28/2024 7:[address] [facility] Comment: Isolated from aerobic culture bottle only. Isolated from one bottle only in a 24-hour period. If workup required, contact bacteriology at [phone]. This organism may be associated with a contaminated culture. The organism value for this result has been updated. These results have been appended to the previously preliminary verified report. Gram Stain Gram positive cocci in clusters(AA) 10/28/2024 7:[address] [facility] Comment: Organism seen in Aerobic Blood Culture Bottle. Positivity Date and Time to Detection: 10/23/2024 at 01 Day(s) and 08 Hour(s). This is an appended report. These results have been appended to a previously preliminary verified report. Blood Blood sample taken from central line / Unknown (Port) Long-term Catheter / Unknown 10/22/2024 5:16 AM EDT 10/22/2024 6:16 AM EDT Michael Andrade MD LAB MICROBIOLOGY - GENERAL [facility]ENN[facility]ER [facility] Final Result [facility] [address] [place] [address] * Vancomycin, Peak, Plasma Please draw ~2 hours after 1600 dose of vancomycin finishes infusing on Saturday 10/21. Consider obtaining level via peripheral stick. If peripheral stick is not feasible, please ensure that line is flushed well prior to draw... (10/21/2024 6:56 PM EDT) Vancomycin, Peak, Plasma 22.5 20.0 - 40.0 ug/mL 10/21/2024 7:[address] [facility] Blood Venous blood specimen / Unknown Venipuncture / Unknown 10/21/2024 6:56 PM EDT 10/21/2024 7:[address] [facility] - 10/21/2024 7:37 PM EDT Therapeutic Peak level: 20-40ug/mL Supra-therapeutic Peak level: >40 ug/mL Michael Andrade MD LAB BLOOD ORDERABLES Final Resu lt Performing Organization Address [facility] Co de Phone Number [facility] [address] [place] [address] * (ABNORMAL) Vancomycin, Trough, Plasma Please draw ~30 minutes prior to dose due at 1600 on Saturday 10/21. Please do NOT hold dose awaiting level to return.Consider obtaining level via peripheral stick.If peripheral stick is not feasible, please ensure that l... (10/21/2024 3:43 PM EDT) Vancomycin, Trough, Plasma 9.7(L) 10.0 - 20.0 ug/mL 10/21/2024 4:28 PM EDT [facility] Blood Venous blood specimen / Unknown Venipuncture / Unknown 10/21/2024 3:43 PM EDT 10/21/2024 3:[address] [facility] - 10/21/2024 4:28 PM EDT Therapeutic Trough level: 10-20ug/mL Supra-therapeutic Trough level: >20 ug/mL Michael Andrade MD LAB BLOOD ORDERABLES Final Resu Performing Organization Address [facility] de Phone Number [address] [address] * XR Panorex (10/21/2024 3:31 PM EDT) Anatomical Region Laterality Modality Jaw region Panoramic X-Ray Impressions 10/21/2024 3:45 PM EDT Evaluation of the central structures are significantly limited by motion. Within limits of the motion degraded study, there is no apparent dental caries or definite evidence of periapical abscess. CRITICAL RESULT: No. COMMUNICATION: Per this written report. Drafted by Christiano Boston on 10/21/2024 3:42 PM Final report signed by Christiano Boston on 10/21/2024 3:45 PM Narrative 10/21/2024 3:45 PM EDT CLINICAL INDICATION: Looking for source of Strep bacteremia TECHNIQUE: XR PANOREX COMPARISON: August 06, 2024 FINDINGS: Limited evaluation of the central structures due to motion. Within limits of the study, no apparent dental caries. Lucency along the distal roots may represent a component of odontogenic disease. No focal lucency to suggest periapical abscess. Dental amalgam. Procedure Note Christiano Boston MD - 10/21/2024 CLINICAL INDICATION: Looking for source of Strep bacteremia TECHNIQUE: XR PANOREX COMPARISON: August 06, 2024 FINDINGS: Limited evaluation of the central structures due to motion. Within limitsof the study, no apparent dental caries. Lucency along the distal rootsmay represent a component of odontogenic disease. No focal lucency tosuggest periapical abscess. Dental amalgam. IMPRESSION: Evaluation of the central structures are significantly limited bymotion. Within limits of the motion degraded study, there is no apparent dentalcaries or definite evidence of periapical abscess. CRITICAL RESULT: No. COMMUNICATION: Per this written report. Drafted by Christiano Boston on 10/21/2024 3:42 PM Final report signed by Christiano Boston on 10/21/2024 3:45 PM Michael Andrade MD IMG XR PROCEDURES Final Result * Transfuse RBC, Sickle Cell (Hgb S) Negative (10/21/2024 8:36 AM EDT) Esha Duarte MD BLOOD TRANSFUSION ORDERABLES Fi nal Result * Transfuse RBC: 1 Units, Sickle Cell (Hgb S) Negative (10/21/2024 8:36 AM EDT) us Esha Duarte MD BLOOD TRANSFUSION ORDERABLES Fi nal Result * (ABNORMAL) CBC W/O Differential (10/21/2024 4:33 AM EDT) WBC Count 19.52(H) 3.70 - 10.30 10*3/uL LAB HEMATOLOGY METHOD 10/21/2024 5:[address] [facility] RBC Count 2.03(L) 4.60 - 6.10 10*6/uL LAB HEMATOLOGY METHOD 10/21/2024 5:[address] [facility] HGB 6.0(LL) 13.7 - 17.5 g/dL LAB HEMATOLOGY METHOD 10/21/2024 5:[address] [facility] HCT 17.7(LL) 40.0 - 51.0 % LAB HEMATOLOGY METHOD 10/21/2024 5:[address] [facility] Platelet Count 439(H) 155 - 369 10*3/uL LAB HEMATOLOGY METHOD 10/21/2024 5:[address] [facility] MCV 87 79 - 98 fL LAB HEMATOLOGY METHOD 10/21/2024 5:[address] [facility] MCH 29.6 26.0 - 32.0 pg LAB HEMATOLOGY METHOD 10/21/2024 5:[address] [facility] MCHC 33.9 30.7 - 35.5 g/dL LAB HEMATOLOGY METHOD 10/21/2024 5:[address] [facility] RDW 18.5(H) 11.5 - 14.5 % LAB HEMATOLOGY METHOD 10/21/2024 5:[address] [facility] MPV 9.0 8.8 - 12.5 fL LAB HEMATOLOGY METHOD 10/21/2024 5:[address] [facility] nRBC 0.5(H) <=0.0 per 100 WBCs LAB HEMATOLOGY METHOD 10/21/2024 5:[address] [facility] Blood Venous blood specimen / Unknown Venipuncture / Unknown 10/21/2024 4:33 AM EDT 10/21/2024 5:00 AM EDT us Michael Andrade MD LAB BLOOD ORDERABLES Final Resu lt [facility] [address] [place] [address] * (ABNORMAL) Cystatin C (10/21/2024 4:33 AM EDT) Cystatin C 1.14(H) 0.61 - 0.95 mg/L 10/21/2024 5:[address] [facility] Blood Venous blood specimen / Unknown Venipuncture / Unknown 10/21/2024 4:33 AM EDT 10/21/2024 4:45 AM EDT us Michael Andrade MD LAB BLOOD ORDERABLES Final Resu lt Performing Organization Address [facility]/ZIP Co de Phone Number [facility] [address] [place] [address] * (ABNORMAL) C-Reactive Protein, Plasma (10/21/2024 4:33 AM EDT) CRP, Plasma 49.8(H) <=8.0 mg/L 10/21/2024 5:[address] [facility] Blood Venous blood specimen / Unknown Venipuncture / Unknown 10/21/2024 4:33 AM EDT 10/21/2024 4:[address] [facility] - 10/21/2024 5:15 AM EDT This CRP test is appropriate for assessment of infection, systemic inflammation and/or tissue injury. To assess cardiovascular disease risk order high sensitivity CRP (CRPH). us Michael Andrade MD LAB BLOOD ORDERABLES Final Resu lt Performing Organization Address [facility] Co de Phone Number [facility] [address] [place] [address] * (ABNORMAL) Phosphorus, Plasma (10/21/2024 4:33 AM EDT) [facility] Phosphorus, Plasma 5.2(H) 2.5 - 4.5 mg/dL 10/21/2024 5:[address] [facility] Blood Venous blood specimen / Unknown Venipuncture / Unknown 10/21/2024 4:33 AM EDT 10/21/2024 4:45 AM EDT us Michael Andrade MD LAB BLOOD ORDERABLES Final Resu lt Performing Organization Address [facility]/ZIP Co de Phone Number [facility] [address] [place] [address] * (ABNORMAL) Magnesium, Plasma (10/21/2024 4:33 AM EDT) [facility] Magnesium, Plasma 1.7(L) 1.9 - 2.4 mg/dL 10/21/2024 5:[address] [facility] Blood Venous blood specimen / Unknown Venipuncture / Unknown 10/21/2024 4:33 AM EDT 10/21/2024 4:45 AM EDT us Michael Andrade MD LAB BLOOD ORDERABLES Final Resu lt [facility] [address] [place] [address] * (ABNORMAL) Comprehensive Metabolic Panel, Plasma (10/21/2024 4:33 AM EDT) Glucose, Plasma 89 74 - 99 mg/dL 10/21/2024 5:[address] [facility] BUN, Plasma 9 7 - 21 mg/dL 10/21/2024 5:[address] [facility] Creatinine, Plasma 0.85 0.70 - 1.20 mg/dL 10/21/2024 5:[address] [facility] BUN/Creatinine Ratio 11 10/21/2024 5:[address] [facility] Sodium, Plasma 137 136 - 145 mmol/L 10/21/2024 5:[address] [facility] Potassium, Plasma 4.5 3.6 - 4.9 mmol/L 10/21/2024 5:[address] [facility] Chloride, Plasma 107 97 - 107 mmol/L 10/21/2024 5:[address] [facility] CO2, Plasma 21(L) 22 - 29 mmol/L 10/21/2024 5:[address] [facility] Anion Gap 9 6 - 16 mmol/L 10/21/2024 5:[address] [facility] Total Calcium, Plasma 8.1(L) 8.9 - 10.2 mg/dL 10/21/2024 5:[address] [facility] Total Protein 7.4 6.3 - 7.9 g/dL 10/21/2024 5:[address] [facility] Albumin, Plasma 3.3(L) 3.5 - 5.2 g/dL 10/21/2024 5:[address] [facility] AST, Plasma 86(H) 10 - 50 U/L 10/21/2024 5:[address] [facility] ALT, Plasma 46 10 - 50 U/L 10/21/2024 5:[address] [facility] Alkaline Phosphatase, Plasma 69 40 - 115 U/L 10/21/2024 5:[address] [facility] Total Bilirubin, Plasma 2.0(H) 0.2 - 1.1 mg/dL 10/21/2024 5:[address] [facility] eGFRcr 119.9 mL/min/1.7 3m*2 10/21/2024 5:[address] [facility] Comment:Reported eGFRcr in m L/min/1.73m2 is based the CKD-EPI 2020 equation that does not use a race coefficient. Blood Venous blood specimen / Unknown Venipuncture / Unknown 10/21/2024 4:33 AM EDT 10/21/2024 4:45 AM EDT us Michael Andrade MD LAB BLOOD ORDERABLES Final Resu lt [facility] [address] [place] [address] * (ABNORMAL) OXYCODONE CONFIRMATION,URINE (10/20/2024 8:52 PM EDT) Oxycodone >1,000(H) <50 ng/mL 10/23/2024 7:[address] [facility] Oxymorphone <50 <50 ng/mL 10/23/2024 7:[address] [facility] Oxymorphone Glucuronide >1,000(H) <50 ng/mL 10/23/2024 7:[address] [facility] Urine Urine specimen obtained by clean catch procedure / Unknown Non-blood Collection / Unknown 10/20/2024 8:52 PM EDT 10/20/2024 8:[address] [facility] - 10/23/2024 7:12 AM EDT Test performed by LC-MS/MS at the [facility]. This test was developed and its performance characteristics determined by [facility]. It has not been cleared or approved by the FDA. The laboratory is regulated under CLIA as qualified to perform high-complexity testing. This test is used for clinical purposes. us Michael Andrade MD LAB URINE ORDERABLES Final Resu lt [facility] [address] [place] [address] * (ABNORMAL) Opiates Confirm Urine (10/20/2024 8:52 PM EDT) Codeine <50 <50 ng/mL 10/23/2024 7:[address] [facility] Codeine Glucuronide <50 <50 ng/mL 10/23/2024 7:[address] [facility] Desmethyl Tramadol <50 <50 ng/mL 10/23/2024 7:[address] [facility] EDDP - Methadone Metabolite <50 <50 ng/mL 10/23/2024 7:[address] [facility] Hydrocodone <50 <50 ng/mL 10/23/2024 7:[address] [facility] Hydromorphone >1,000(H) <50 ng/mL 10/23/2024 7:[address] [facility] Hydromorphone Glucuronide >1,000(H) <50 ng/mL 10/23/2024 7:[address] [facility] Comment:Metabolite of Hydrom orphone Meperidine <50 <50 ng/mL 10/23/2024 7:[address] [facility] Methadone <50 <50 ng/mL 10/23/2024 7:[address] [facility] 6 Monoacetyl morphine <10 <10 ng/mL 10/23/2024 7:[address] [facility] Morphine <50 <50 ng/mL 10/23/2024 7:[address] [facility] Morphine Glucuronide <50 <50 ng/mL 10/23/2024 7:[address] [facility] Comment:Metabolite of Morphi ne Naloxone <50 <50 ng/mL 10/23/2024 7:[address] [facility] Naloxone Glucuronide <50 <50 ng/mL 10/23/2024 7:[address] [facility] Comment:Metabolite of Naloxo ne Normeperidine <50 <50 ng/mL 10/23/2024 7:[address] [facility] Tramadol <50 <50 ng/mL 10/23/2024 7:[address] [facility] Urine Urine specimen obtained by clean catch procedure / Unknown Non-blood Collection / Unknown 10/20/2024 8:52 PM EDT 10/20/2024 8:[address] [facility] - 10/23/2024 7:12 AM EDT Drug analysis is confirmed by LC-MS/MS (LC Tandem Mass Spectrometry) on Urine specimens. This test was developed and its performance characteristics determined by [facility]. It has not been cleared or approved by the FDA. The laboratory is regulated under CLIA as qualified to perform high-complexity testing. This test is used for clinical purposes. Testing is performed at the [facility], [facility]. Michael Andrade MD LAB URINE ORDERABLES Final Resu lt [facility] [address] [place] [address] * Drug Abuse Screen Urine (10/20/2024 8:52 PM EDT) Amphetamine Screen Urine Negative Cutoff: 500 ng/mL 10/20/2024 9:[address] [facility] Benzodiazepines Screen Urine Negative Cutoff: 200 ng/mL 10/20/2024 9:[address] [facility] Cannabinoid Screen Urine Negative Cutoff: 50 ng/mL 10/20/2024 9:[address] [facility] Cocaine Screen Urine Negative Cutoff: 300 ng/mL 10/20/2024 9:[address] [facility] Barbiturate Screen Urine Negative Cutoff: 200 ng/mL 10/20/2024 9:[address] [facility] Opiate Screen Urine Presumptive positive. Confirmation by LC-MS/MS to follow. Cutoff: 300 ng/mL 10/20/2024 9:[address] [facility] Methadone Screen Urine Negative Cutoff: 300 ng/mL 10/20/2024 9:[address] [facility] Buprenorphine Screen Urine Negative Cutoff: 10 ng/mL 10/20/2024 9:[address] [facility] Fentanyl Screen Urine Negative Cutoff: 1 ng/mL 10/20/2024 9:[address] [facility] Oxycodone Screen Urine Presumptive positive. Confirmation by LC-MS/MS to follow. Cutoff: 100 ng/mL 10/20/2024 9:[address] [facility] Urine Urine specimen obtained by clean catch procedure / Unknown Non-blood Collection / Unknown 10/20/2024 8:52 PM EDT 10/20/2024 8:57 PM EDT us Michael Andrade MD LAB URINE ORDERABLES Final Resu lt Performing Organization Address [facility]/ZIP Co de Phone Number [facility] [address] [place] [address] * (ABNORMAL) C-Reactive Protein, Plasma (10/20/2024 4:42 AM EDT) CRP, Plasma 61.1(H) <=8.0 mg/L 10/20/2024 9:[address] [facility] Blood Blood sample taken from central line / Unknown (Port) Long-term Catheter / Unknown 10/20/2024 4:42 AM EDT 10/20/2024 5:[address] [facility] - 10/20/2024 9:00 AM EDT This CRP test is appropriate for assessment of infection, systemic inflammation and/or tissue injury. To assess cardiovascular disease risk order high sensitivity CRP (CRPH). us Malik Trent APRN LAB BLOOD ORDERABLES Final Re sult Performing Organization Address [facility]/ZIP Co de Phone Number [facility] [address] [place] [address] * (ABNORMAL) Bilirubin, direct (10/20/2024 4:42 AM EDT) Direct Bilirubin, Plasma 0.4(H) <=0.3 mg/dL 10/20/2024 5:[address] [facility] Blood Venous blood specimen / Unknown Venipuncture / Unknown 10/20/2024 4:42 AM EDT 10/20/2024 5:04 AM EDT Malik Trent APRN LAB BLOOD ORDERABLES Final Re sult Performing Organization Address [facility]/ZIP Co de Phone Number [facility] [address] [place] [address] * Lactate, venous (10/20/2024 4:42 AM EDT) Pathologist [facility] Lactate, Venous, Whole Blood 0.7 0.5 - 2.2 mmol/L LAB HEMATOLOGY METHOD 10/20/2024 4:[address] [facility] Blood Venous blood specimen / Unknown Venipuncture / Unknown 10/20/2024 4:42 AM EDT 10/20/2024 4:54 AM EDT Malik Trent APRN LAB BLOOD ORDERABLES Final Re sult Performing Organization Address [facility] de Phone Number [facility] [address] [place] [address] * (ABNORMAL) CBC and Differential (10/20/2024 4:42 AM EDT) WBC Count 30.20(H) 3.70 - 10.30 10*3/uL LAB HEMATOLOGY METHOD 10/20/2024 4:[address] [facility] RBC Count 2.27(L) 4.60 - 6.10 10*6/uL LAB HEMATOLOGY METHOD 10/20/2024 4:[address] [facility] HGB 6.9(L) 13.7 - 17.5 g/dL LAB HEMATOLOGY METHOD 10/20/2024 4:[address] [facility] HCT 19.8(L) 40.0 - 51.0 % LAB HEMATOLOGY METHOD 10/20/2024 4:[address] [facility] Platelet Count 398(H) 155 - 369 10*3/uL LAB HEMATOLOGY METHOD 10/20/2024 4:[address] [facility] MCV 87 79 - 98 fL LAB HEMATOLOGY METHOD 10/20/2024 4:[address] [facility] MCH 30.4 26.0 - 32.0 pg LAB HEMATOLOGY METHOD 10/20/2024 4:[address] [facility] MCHC 34.8 30.7 - 35.5 g/dL LAB HEMATOLOGY METHOD 10/20/2024 4:[address] [facility] RDW 19.1(H) 11.5 - 14.5 % LAB HEMATOLOGY METHOD 10/20/2024 4:[address] [facility] MPV 8.6(L) 8.8 - 12.5 fL LAB HEMATOLOGY METHOD 10/20/2024 4:[address] [facility] nRBC 0.3(H) <=0.0 per 100 WBCs LAB HEMATOLOGY METHOD 10/20/2024 4:[address] [facility] Differential Type Automated LAB HEMATOLOGY METHOD 10/20/2024 4:[address] [facility] Neutrophils % 79 % LAB HEMATOLOGY METHOD 10/20/2024 4:[address] [facility] Lymphocytes % 14 % LAB HEMATOLOGY METHOD 10/20/2024 4:[address] [facility] Monocytes % 4 % LAB HEMATOLOGY METHOD 10/20/2024 4:[address] [facility] Eosinophils % 2 % LAB HEMATOLOGY METHOD 10/20/2024 4:[address] [facility] Basophils % 0 % LAB HEMATOLOGY METHOD 10/20/2024 4:[address] [facility] Immature Granulocytes % 1 % LAB HEMATOLOGY METHOD 10/20/2024 4:[address] [facility] Neutrophils Absolute 24.04(H) 1.60 - 6.10 10*3/uL LAB HEMATOLOGY METHOD 10/20/2024 4:[address] [facility] Lymphocytes Absolute 4.09(H) 1.20 - 3.90 10*3/uL LAB HEMATOLOGY METHOD 10/20/2024 4:[address] [facility] Monocytes Absolute 1.14(H) 0.30 - 0.90 10*3/uL LAB HEMATOLOGY METHOD 10/20/2024 4:[address] [facility] Eosinophils Absolute 0.64(H) 0.00 - 0.50 10*3/uL LAB HEMATOLOGY METHOD 10/20/2024 4:[address] [facility] Basophils Absolute 0.12(H) 0.00 - 0.10 10*3/uL LAB HEMATOLOGY METHOD 10/20/2024 4:[address] [facility] Immature Granulocytes Absolute 0.17(H) 0.00 - 0.06 10*3/uL LAB HEMATOLOGY METHOD 10/20/2024 4:[address] [facility] Blood Blood sample taken from central line / Unknown (Port) Long-term Catheter / Unknown 10/20/2024 4:42 AM EDT 10/20/2024 4:[address] [facility] - 10/20/2024 4:56 AM EDT Therapeutic decision making should be based on absolute values, rather than percentages. us Malik Trent [employer] LAB BLOOD ORDERABLES Final Re sult [facility] [address] [place] [address] * (ABNORMAL) Prothrombin Time/INR (10/20/2024 4:42 AM EDT) Prothrombin Time 17.6(H) 12.0 - 14.3 sec 10/20/2024 5:[address] [facility] INR 1.5(H) 0.9 - 1.1 10/20/2024 5:[address] [facility] Blood Blood sample taken from central line / Unknown (Port) Long-term Catheter / Unknown 10/20/2024 4:42 AM EDT 10/20/2024 4:[address] [facility] - 10/20/2024 5:06 AM EDT OPTIMAL INR RANGES FOR PATIENT ON ORAL ANTICOAGULANT THERAPY Prevention of venous thromboembolism INR 2.0 to 3.0 In patients with heart disease: Atrial fibrillation INR 2.0 to 3.0 Valvular heart disease INR 2.0 to 3.0 Tissue heart valves INR 2.0 to 3.0 Mechanical prosthetic valves INR 2.5 to 3.5 Prevention of recurrent [place] INR 2.5 to 3.5 us Malik Trent [employer] LAB BLOOD ORDERABLES Final Re sult Performing Organization Address [facility] Co de Phone Number [facility] [address] [place] [address] * Phosphorus, Plasma (10/20/2024 4:42 AM EDT) Phosphorus, Plasma 4.5 2.5 - 4.5 mg/dL 10/20/2024 5:[address] [facility] Blood Blood sample taken from central line / Unknown (Port) Long-term Catheter / Unknown 10/20/2024 4:42 AM EDT 10/20/2024 5:04 AM EDT us Malik Trent [employer] LAB BLOOD ORDERABLES Final Re sult Performing Organization Address [facility] Co de Phone Number [facility] [address] [place] [address] * (ABNORMAL) Magnesium, Plasma (10/20/2024 4:42 AM EDT) Magnesium, Plasma 1.8(L) 1.9 - 2.4 mg/dL 10/20/2024 5:[address] [facility] Blood Blood sample taken from central line / Unknown (Port) Long-term Catheter / Unknown 10/20/2024 4:42 AM EDT 10/20/2024 5:04 AM EDT Malik Trent [employer] LAB BLOOD ORDERABLES Final Re sult Performing Organization Address [facility] Co de Phone Number [facility] [address] [place] [address] * (ABNORMAL) Comprehensive Metabolic Panel, Plasma (10/20/2024 4:42 AM EDT) Glucose, Plasma 112(H) 74 - 99 mg/dL 10/20/2024 5:[address] [facility] BUN, Plasma 11 7 - 21 mg/dL 10/20/2024 5:[address] [facility] Creatinine, Plasma 0.81 0.70 - 1.20 mg/dL 10/20/2024 5:[address] [facility] BUN/Creatinine Ratio 14 10/20/2024 5:[address] [facility] Sodium, Plasma 136 136 - 145 mmol/L 10/20/2024 5:[address] [facility] Potassium, Plasma 3.7 3.6 - 4.9 mmol/L 10/20/2024 5:[address] [facility] Chloride, Plasma 106 97 - 107 mmol/L 10/20/2024 5:[address] [facility] CO2, Plasma 21(L) 22 - 29 mmol/L 10/20/2024 5:[address] [facility] Anion Gap 9 6 - 16 mmol/L 10/20/2024 5:[address] [facility] Total Calcium, Plasma 8.0(L) 8.9 - 10.2 mg/dL 10/20/2024 5:[address] [facility] Total Protein 7.8 6.3 - 7.9 g/dL 10/20/2024 5:[address] [facility] Albumin, Plasma 3.6 3.5 - 5.2 g/dL 10/20/2024 5:[address] [facility] AST, Plasma 76(H) 10 - 50 U/L 10/20/2024 5:[address] [facility] ALT, Plasma 43 10 - 50 U/L 10/20/2024 5:[address] [facility] Alkaline Phosphatase, Plasma 80 40 - 115 U/L 10/20/2024 5:[address] [facility] Total Bilirubin, Plasma 2.8(H) 0.2 - 1.1 mg/dL 10/20/2024 5:[address] [facility] eGFRcr 121.6 mL/min/1.7 3m*2 10/20/2024 5:[address] [facility] Comment:Reported eGFRcr in m L/min/1.73m2 is based the CKD-EPI 2020 equation that does not use a race coefficient. Blood Blood sample taken from central line / Unknown (Port) Long-term Catheter / Unknown 10/20/2024 4:42 AM EDT 10/20/2024 5:04 AM EDT Malik Trent APRN LAB BLOOD ORDERABLES Final Re sult Performing Organization Address [facility] Co de Phone Number [facility] [address] [place] [address] * SARS CoV-2/COVID-19 by PCR - Rapid (10/20/2024 3:10 AM EDT) [facility] SARS CoV-2/COVID-1 9 RNA PCR Result Not Detected Not Detected 10/20/2024 4:57 AM EDT [facility] Swab Nasopharyngeal structure / Unknown Non-blood Collection / Unknown 10/20/2024 3:10 AM EDT 10/20/2024 4:[address] [facility] - 10/20/2024 4:57 AM EDT This test is FDA approved for use with nasopharyngeal specimens in Viral Transport Media (VTM). This test is used for clinical purposes. It should not be regarded as investigational or for research. This laboratory is certified under the Clinical Laboratory improvement Amendments of 1988 (CLIA-88 as qualified to perform high complexity clinical laboratory testing. This test was performed on the Xpert Xpress SARS CoV-2 Plus assay test, a PCR- based method. Negative results should be considered presumptive and do not preclude current or future infection obtained through community transmission or other exposures. Negative results must be considered in the context of an individual's recent exposures, history, presence of clinical signs and symptoms consistent with COVID-19. Malik Trent APRN LAB MICROBIOLOGY - GENERAL OR DERABLES Final Result Performing Organization Address [facility] Co de Phone Number [facility] [address] [place] [address] * Nasopharyngeal Respiratory Panel (10/20/2024 3:10 AM EDT) [facility] Nasopharyngeal Respiratory PCR Interpretation Not Detected for all analytes Not Detected for all analytes 10/20/2024 6:[address] [facility] Swab Nasopharyngeal structure / Unknown Non-blood Collection / Unknown 10/20/2024 3:10 AM EDT 10/20/2024 4:[address] [facility] - 10/20/2024 6:03 AM EDT This assay can detect Adenovirus, Coronavirus, Human Metapneumovirus, Human Rhino/Enterovirus, Influenza A, Influenza A H1, Influenza A H1 2009, Influenza A H3, Influenza B, Parainfluenza Virus 1, Parainfluenza Virus 2, Parainfluenza Virus 3, Parainfluenza Virus 4, Respiratory Syncytial Virus A, Respiratory Syncytial Virus B, Chlamydia pneumoniae, and Mycoplasma pneumoniae. Note: This assay does NOT detect SARS/CoV, novel Coronavirus 2019-nCoV, Bordetella pertussis or Bordetella parapertussis. Nasopharyngeal Respiratory PCR Panel is performed using the Velomedixlex instrument. This test is FDA approved for use with Nasopharyngeal swabs only. This test is used for clinical purposes. It should not be regarded as investigational or for research. The [facility] is certified under the Clinical Laboratory Improvement Amendments of 1988 (CLIA-88) as qualified to perform high complexity clinical laboratory testing. Malik Trent APRN LAB MICROBIOLOGY - GENERAL OR DERABLES Final Result [facility] [address] [place] [address] * (ABNORMAL) Multi Drug Resistance Test (10/20/2024 3:10 AM EDT) [facility] Culture Methicillin-Resis tant Staphylococcus aureus(AA) 10/21/2024 8:[address] [facility] Comment: The organism value for this result has been updated. These results have been appended to the previously preliminary verified report. <null> has been updated to reportable. Swab (Nares and Venecia Rectal) Non-blood Collection / Unknown 10/20/2024 3:10 AM EDT 10/20/2024 4:[address] [facility] - 10/21/2024 8:48 AM EDT This test was developed and its performance characteristics determined by the [facility]. Although the media is FDA-approved, it is not FDA-approved for all specimen types submitted. The FDA has determined that such clearance or approval is not necessary. This test is used for surveillance purposes. It should not be regarded as investigational or for research. The [facility] is certified under the Clinical Laboratory Improvement Amendments of 1988 (CLIA-88) as qualified to perform high complexity clinical laboratory testing. Glusterrafa Trent APRN LAB MICROBIOLOGY - GENERAL OR DERABLES Final Result Performing Organization Address [facility]/ZIP Co de Phone Number [facility] [address] [place] [address] * Urine Hernandez Panel (10/20/2024 2:31 AM EDT) Extra Reflex urine culture not indicated 10/20/2024 11:01 AM EDT [facility] Comment: Previously prelim verified as Specimen evaluation in progress on 10/20/2024 at 0401 EDT. Previously prelim verified as Specimen evaluation in progress on 10/20/2024 at 0501 EDT. Previously prelim verified as Specimen evaluation in progress on 10/20/2024 at 0601 EDT. Previously prelim verified as Specimen evaluation in progress on 10/20/2024 at 0701 EDT. Previously prelim verified as Specimen evaluation in progress on 10/20/2024 at 0801 EDT. Previously prelim verified as Specimen evaluation in progress on 10/20/2024 at 0901 EDT. Previously prelim verified as Specimen evaluation in progress on 10/20/2024 at 1001 EDT. Urine Urine specimen obtained by clean catch procedure / Unknown Non-blood Collection / Unknown 10/20/2024 2:31 AM EDT 10/20/2024 2:43 AM EDT Glusterrafa Trent APRN LAB URINE ORDERABLES Final Re sult Performing Organization Address [facility] Co de Phone Number [facility] [address] [place] [address] * Urinalysis with reflex microscopic (Culture NOT Included) (10/20/2024 2:31 AM EDT) Color, Urine Dark Yellow LAB URINALYSIS - AUTOMATED METHOD 10/20/2024 2:[address] [facility] Clarity, Urine Clear LAB URINALYSIS - AUTOMATED METHOD 10/20/2024 2:[address] [facility] Spec Russell, Urine 1.014 1.005 - 1.030 LAB URINALYSIS - AUTOMATED METHOD 10/20/2024 2:[address] [facility] pH, Urine 6.0 5.0 - 8.0 LAB URINALYSIS - AUTOMATED METHOD 10/20/2024 2:[address] [facility] Protein, Urine Negative Negative mg/dL LAB URINALYSIS - AUTOMATED METHOD 10/20/2024 2:[address] [facility] Glucose, Urine Negative Negative mg/dL LAB URINALYSIS - AUTOMATED METHOD 10/20/2024 2:[address] [facility] Ketones, Urine Negative Negative mg/dL LAB URINALYSIS - AUTOMATED METHOD 10/20/2024 2:[address] [facility] Blood, Urine Negative Negative LAB URINALYSIS - AUTOMATED METHOD 10/20/2024 2:[address] [facility] Bilirubin, Urine Negative Negative LAB URINALYSIS - AUTOMATED METHOD 10/20/2024 2:[address] [facility] Urobilinogen, Urine 1.0 0.2 to 1.0 mg/dL LAB URINALYSIS - AUTOMATED METHOD 10/20/2024 2:[address] [facility] Leukocytes, Urine Negative Negative LAB URINALYSIS - AUTOMATED METHOD 10/20/2024 2:[address] [facility] Nitrite, Urine Negative Negative LAB URINALYSIS - AUTOMATED METHOD 10/20/2024 2:[address] [facility] Urine Urine specimen obtained by clean catch procedure / Unknown Non-blood Collection / Unknown 10/20/2024 2:31 AM EDT 10/20/2024 2:35 AM EDT us Malik Trent APRN LAB URINE ORDERABLES Final Re sult [facility] [address] [place] [address] * (ABNORMAL) Pain Management, Quantitative Urine Drug Testing (10/20/2024 2:31 AM EDT) [facility] [place] Alprazolam <20 <20 ng/mL 10/21 5:[address] [facility] [place] Midazolam <20 <20 ng/mL 2024 5:[address] [facility] [place] Triazolam <20 <20 ng/mL 2024 5:[address] [facility] Alprazolam <10 <10 ng/mL 10/21/2024 5:[address] [facility] Aminoclonazepam <20 <20 ng/mL 5 5:[address] [facility] Amphetamine <50 <50 ng/mL 10/21/2024 5:[address] [facility] Benzoylecgonine <50 <50 ng/mL 5:[address] [facility] Buprenorphine <10 <10 ng/mL 10/21/2024 5:[address] [facility] Buprenorphine Glucuronide <50 <50 ng/mL 10/21/2024 5:[address] [facility] Butalbital <50 <50 ng/mL 10/21/2024 5:[address] [facility] 9 Carboxy THC <10 <10 ng/mL 10/21/2024 5:[address] [facility] 9 Carboxy THC Glucuronide <25 <25 ng/mL 10/21/2024 5:[address] [facility] Clonazepam <10 <10 ng/mL 10/21/2024 5:[address] [facility] Codeine <50 <50 ng/mL 10/21/2024 5:[address] [facility] Codeine Glucuronide <50 <50 ng/mL 10/21 5:[address] [facility] Cyclobenzaprine <50 <50 ng/mL 5 5:[address] [facility] Desmethyl Tramadol <50 <50 ng/mL 2024 5:[address] [facility] Diazepam <10 <10 ng/mL 10/21/2024 5:[address] [facility] EDDP - Methadone Metabolite <50 <50 ng/mL 10/21/2024 5:[address] [facility] Fentanyl <1 <1 ng/mL 10/21/2024 5:[address] [facility] Hydrocodone <50 <50 ng/mL 10/21/2024 5:[address] [facility] Hydromorphone <50 <50 ng/mL 10/21/2024 5:[address] [facility] Hydromorphone Glucuronide >1,000(H) <50 ng/mL 10/21/2024 5:[address] [facility] Lorazepam <20 <20 ng/mL 10/21/2024 5:[address] [facility] Lorazepam Glucuronide <50 <50 ng/mL 10/21/2024 5:[address] [facility] MDA <50 <50 ng/mL 10/21/2024 5:[address] [facility] MDMA <50 <50 ng/mL 10/21/2024 5:[address] [facility] Meperidine <50 <50 ng/mL 10/21/2024 5:[address] [facility] Methadone <50 <50 ng/mL 10/21/2024 5:[address] [facility] Methamphetamine <50 <50 ng/mL 5 5:[address] [facility] Methylphenidate <50 <50 ng/mL 5 5:[address] [facility] 6 Monoacetyl morphine <10 <10 ng/mL 10/21/2024 5:[address] [facility] Morphine <50 <50 ng/mL 10/21/2024 5:[address] [facility] Morphine Glucuronide <50 <50 ng/mL 10/05 5:[address] [facility] Naloxone <50 <50 ng/mL 10/21/2024 5:[address] [facility] Naloxone Glucuronide <50 <50 ng/mL 10/05 5:[address] [facility] Norbuprenorphine <10 <10 ng/mL 10/22/19 5:[address] [facility] Norbuprenorphine Glucuronide <50 <50 ng/mL 10/21/2024 5:[address] [facility] Nordiazepam <20 <20 ng/mL 10/21/2024 5:[address] [facility] Norfentanyl <2 <2 ng/mL 10/21/2024 5:[address] [facility] Normeperidine <50 <50 ng/mL 10/21/2024 5:[address] [facility] PCP Quant, Ur <50 <50 ng/mL 10/21/2024 5:[address] [facility] Phenobarbital <50 <50 ng/mL 10/21/2024 5:[address] [facility] Oxazepam <20 <20 ng/mL 10/21/2024 5:[address] [facility] Oxazepam Glucuronide <50 <50 ng/mL 10/05 5:[address] [facility] Oxycodone >1,000(H) <50 ng/mL 10/21/2024 5:[address] [facility] Oxymorphone <50 <50 ng/mL 10/21/2024 5:[address] [facility] Oxymorphone Glucuronide >1,000(H) <50 ng/mL 10/21/2024 5:[address] [facility] Secobarbital <50 <50 ng/mL 10/21/2024 5:[address] [facility] Tramadol <50 <50 ng/mL 10/21/2024 5:[address] [facility] Temazepam <20 <20 ng/mL 10/21/2024 5:[address] [facility] Temazepam Glucuronide <50 <50 ng/mL 10/21/2024 5:[address] [facility] Urine Urine specimen obtained by clean catch procedure / Unknown Non-blood Collection / Unknown 10/20/2024 2:31 AM EDT 10/20/2024 2:[address] [facility] - 10/21/2024 5:17 PM EDT This report is intended for use in clinical monitoring or management of patients. It is NOT intended for use in employment-related drug testing. For pain management, the absence of expected drug(s) and/or drug metabolite(s) may indicate non-compliance, inappropriate timing of specimen collection relative to drug administration, poor drug absorption, or limitations of testing. Interpretive questions should be directed to the laboratory. Test performed by LC-MS/MS at the [facility]. This test was developed and its performance characteristics determined by [facility]. It has not been cleared or approved by the FDA. The laboratory is regulated under CLIA as qualified to perform high-complexity testing. This test is used for clinical purposes. Malik Trent APRN LAB URINE ORDERABLES Final Re sult [facility] [address] [place] [address] * (ABNORMAL) Comprehensive Urine Drug Screening, Qualitative Assay, >= 27 Drug Classes (52:31 AM EDT) Acetaminophen Positive(A) Negative 10/22/2024 4:[address] [facility] Alprazolam Negative Negative 10/22/2024 4:[address] [facility] Amantadine Negative Negative 10/22/2024 4:[address] [facility] Amitriptyline Negative Negative 10/22/2024 4:[address] [facility] Amphetamine Negative Negative 10/22/2024 4:[address] [facility] Atenolol Negative Negative 10/22/2024 4:[address] [facility] Benzoylecgonine Negative Negative 4:[address] [facility] Bisoprolol Negative Negative 10/22/2024 4:[address] [facility] Bupropion Negative Negative 10/22/2024 4:[address] [facility] Butalbital Negative Negative 10/22/2024 4:[address] [facility] Carbamazepine Negative Negative 10/22/2024 4:[address] [facility] Carisoprodol Negative Negative 10/22/2024 4:[address] [facility] Chlorpheniramine Negative Negative 10/23/19 4:[address] [facility] Citalopram Negative Negative 10/22/2024 4:[address] [facility] Clindamycin Negative Negative 10/22/2024 4:[address] [facility] Clonidine Negative Negative 10/22/2024 4:[address] [facility] Clopidogrel / Ticlopidine Negative Negative 10/22/2024 4:[address] [facility] Cocaethylene Negative Negative 10/22/2024 4:[address] [facility] Cocaine Negative Negative 10/22/2024 4:[address] [facility] Codeine Negative Negative 10/22/2024 4:[address] [facility] Cyclobenzaprine Negative Negative 4:[address] [facility] Desvenlafaxine Negative Negative 10/22/2024 4:[address] [facility] Dextromethorphan Negative Negative 10/23/19 4:[address] [facility] Diazepam Negative Negative 10/22/2024 4:[address] [facility] Diltiazem Negative Negative 10/22/2024 4:[address] [facility] Diphenhydramine Positive(A) Negative 10/23/19 4:[address] [facility] Doxepine Negative Negative 10/22/2024 4:[address] [facility] Doxylamine Negative Negative 10/22/2024 4:[address] [facility] EDDP-Methadone metabolite Negative Negative 10/22/2024 4:[address] [facility] Fentanyl Negative Negative 10/22/2024 4:[address] [facility] Fluconazole Negative Negative 10/22/2024 4:[address] [facility] Fluoxetine Negative Negative 10/22/2024 4:[address] [facility] Guaifenesin Positive(A) Negative 10/22/2024 4:[address] [facility] Haloperidol Negative Negative 10/22/2024 4:[address] [facility] Heroin/6-VICKIE Negative Negative 10/22/2024 4:[address] [facility] Hydrocodone Negative Negative 10/22/2024 4:[address] [facility] Hydroxyzine / Cetirizine metabolite Negative Negative 10/22/2024 4:[address] [facility] Ibuprofen Negative Negative 10/22/2024 4:[address] [facility] Imipramine Negative Negative 10/22/2024 4:[address] [facility] Ketamine Negative Negative 10/22/2024 4:[address] [facility] Labetolol Negative Negative 10/22/2024 4:[address] [facility] Lamotrigine Negative Negative 10/22/2024 4:[address] [facility] Levetiracetam Negative Negative 10/22/2024 4:[address] [facility] Lidocaine Negative Negative 10/22/2024 4:[address] [facility] MDA Negative Negative 10/22/2024 4:[address] [facility] MDMA Negative Negative 10/22/2024 4:[address] [facility] Memantine Negative Negative 10/22/2024 4:[address] [facility] Meperidine Negative Negative 10/22/2024 4:[address] [facility] Meprobamate Negative Negative 10/22/2024 4:[address] [facility] Metaxalone Negative Negative 10/22/2024 4:[address] [facility] Methamphetamine Negative Negative 4:[address] [facility] Methocarbamol Negative Negative 10/22/2024 4:[address] [facility] Methylecgonine Negative Negative 10/22/2024 4:[address] [facility] Metoclopramide Negative Negative 10/22/2024 4:[address] [facility] Metoprolol Negative Negative 10/22/2024 4:[address] [facility] Metronidazole Negative Negative 10/22/2024 4:[address] [facility] Midazolam Negative Negative 10/22/2024 4:[address] [facility] Midazolam Metabolite Negative Negative 10/22/2024 4:[address] [facility] Mirtazapine Negative Negative 10/22/2024 4:[address] [facility] Misc Test Result Positive(A) Negative 025 4:[address] [facility] Comment:Oxymorphone: positiv e Naproxen Negative Negative 10/22/2024 4:[address] [facility] Nefazodone Negative Negative 10/22/2024 4:[address] [facility] Norfentanyl Negative Negative 10/22/2024 4:[address] [facility] Nortriptyline Negative Negative 10/22/2024 4:[address] [facility] Ordanstron Negative Negative 10/22/2024 4:[address] [facility] Oxcarbazepine Negative Negative 10/22/2024 4:[address] [facility] Oxycodone Positive(A) Negative 10/22/2024 4:[address] [facility] Paroxethine Negative Negative 10/22/2024 4:[address] [facility] Phenobarbital Negative Negative 10/22/2024 4:[address] [facility] Phentermine Negative Negative 10/22/2024 4:[address] [facility] Phenytoin Negative Negative 10/22/2024 4:[address] [facility] Primidone Negative Negative 10/22/2024 4:[address] [facility] Promethazine Negative Negative 10/22/2024 4:[address] [facility] Propofol Negative Negative 10/22/2024 4:[address] [facility] Propranolol Negative Negative 10/22/2024 4:[address] [facility] Quetiapine Negative Negative 10/22/2024 4:[address] [facility] Quinine Negative Negative 10/22/2024 4:[address] [facility] Rantidine Negative Negative 10/22/2024 4:[address] [facility] Sertraline Negative Negative 10/22/2024 4:[address] [facility] Spironolactone Negative Negative 10/22/2024 4:[address] [facility] Tizanidine Negative Negative 10/22/2024 4:[address] [facility] Topiramate Negative Negative 10/22/2024 4:[address] [facility] Tramadol Negative Negative 10/22/2024 4:[address] [facility] Trazadone/ Trazadone metabolite Negative Negative 10/22/2024 4:[address] [facility] Trimethoprim Negative Negative 10/22/2024 4:[address] [facility] Valproic Acid Negative Negative 10/22/2024 4:[address] [facility] Venlafaxine Negative Negative 10/22/2024 4:[address] [facility] Verapamil Negative Negative 10/22/2024 4:[address] [facility] Zolpidem Negative Negative 10/22/2024 4:[address] [facility] Xylazine Negative Negative 10/22/2024 4:[address] [facility] Urine Urine specimen obtained by clean catch procedure / Unknown Non-blood Collection / Unknown 10/20/2024 2:31 AM EDT 10/20/2024 2:44 AM EDT us Malik Trent APRN LAB URINE ORDERABLES Final Re sult [facility] [address] [place] [address] * (ABNORMAL) Bacterial ID Gram Positive (10/19/2024 9:04 PM EDT) Staphylococcus Result Detected( A) Not Detected 10/21/2024 8:[address] [facility] Comment: From aerobic bottle only Assess if contaminant or clinically relevant pathogen. Consider clinical stability and immune status of patient. These results have been appended to a previously final verified report. Staphylococcus epidermidis Result Detected( A) Not Detected 10/21/2024 8:[address] [facility] Comment: From aerobic bottle only Assess if contaminant or clinically relevant pathogen. Consider clinical stability and immune status of patient. These results have been appended to a previously final verified report. Streptococcus Result Detected( A) Not Detected 10/21/2024 8:[address] [facility] Comment:From anaerobic bottl e only MECA Result Detected( A) Not Detected 10/21/2024 8:[address] [facility] Comment: From aerobic bottle only These results have been appended to a previously final verified report. Blood Venous blood specimen / Unknown Venipuncture / Unknown 10/19/2024 9:04 PM EDT 10/19/2024 9:[address] [facility] - 10/21/2024 8:06 AM EDT Analytes include: Bacillus cereus group, Bacillus subtilis group, Corynebacterium, Cutibacterium acnes (P acnes), Enterococcus, Enterococcus faecalis, Enterococcus faecium, Lactobacillus, Listeria, Listeria monocytogenes, Micrococcus, Staphylococcus, Staphylococcus aureus, Staphylococcus epidermidis, Stapylcoccus lugdunesis, Streptococcus, Streptococcus agalactiae, Streptococcus anginosus group, Streptococcus pneumoniae, Streptococcus pyogenes, Wharton gram negative target, Wharton Miguel target and mecA, mecC, Mine and vanB resistance genes. NOTE: A Not Detected result for result for a resistance gene does not indicate susceptibility to antimicrobials by mechanisms other than carrying the resistance genes detected by the BCID-GP assay. . WHARTON MIGUEL: Inclusive of Miguel albicans, Miguel glabrata, Pichia kudriavzevii (formerly Miguel krusei) and Miguel parapsilosis only. . WHARTON GRAM NEGATIVE: Includes but not limited to Acinetobacter, Bacteroides, Enterobacteriaceae, Neisseria, Pseudomonas, Serratia, Stenotrophomonas maltophilia. . Reference Value: Not detected for all analytes tested. us Channing Wilson MD LAB MICROBIOLOGY - GENERAL ORDERABLES Edited Result - Final [facility] [address] [place] [address] * (ABNORMAL) Blood Culture (Aerobic/Anaerobet Set) (10/19/2024 9:04 PM EDT) [facility] Culture Biotype 1 Staphylococcus epidermidis(AA) YUNIER 10/26/2024 7:[address] [facility] Comment: Isolated from aerobic and anaerobic culture bottles. This isolate has been identified using the FDA Approved [employer] [place] System The organism value for this result has been updated. These results have been appended to the previously preliminary verified report. Edited result: Previously reported as Staphylococcus coagulase negative on 10/23/2024 at 1133 EDT. Culture Streptococcus sanguinis(AA) YUNIER 10/26/2024 7:[address] [facility] Comment: Isolated from anaerobic culture bottle only. The organism value for this result has been updated. These results have been appended to the previously preliminary verified report. Culture Biotype 2 Staphylococcus epidermidis(AA) YUNIER 10/26/2024 7:[address] [facility] Comment: Isolated from aerobic and anaerobic culture bottles. This isolate has been identified using the FDA Approved [employer] [place] System The organism value for this result has been updated. These results have been appended to the previously preliminary verified report. Edited result: Previously reported as Staphylococcus coagulase negative on 10/23/2024 at 2124 EDT. Gram Stain Gram positive cocci in chains(AA) 10/26/2024 7:[address] [facility] Comment: Organism seen in Anaerobic Blood Culture Bottle. Positivity Date and Time to Detection: 10/20/2024. at 00 Day(s) and 18 Hour(s). This is an appended report. These results have been appended to a previously preliminary verified report. Gram Stain Gram positive cocci in clusters(AA) 10/26/2024 7:[address] [facility] Comment: Organism seen in Anaerobic Blood Culture Bottle. Positivity Date and Time to Detection: 10/20/2024. at 00 Day(s) and 18 Hour(s). This is an appended report. These results have been appended to a previously preliminary verified report. Gram Stain Gram positive cocci in clusters(AA) 10/26/2024 7:[address] [facility] Comment: Organism seen in Aerobic Blood Culture Bottle. Positivity Date and Time to Detection: 10/20/2024 at 00 Day(s) and 18 Hour(s). This is an appended report. These results have been appended to a previously preliminary verified report. Blood Venous blood specimen / Unknown Venipuncture / Unknown 10/19/2024 9:04 PM EDT 10/19/2024 9:11 PM EDT Narrative Organism Antibiotic Method Susceptibility Staphylococcus epidermidis Clindamycin YUNIER >2 ug/ml: Resistant Staphylococcus epidermidis Daptomycin YUNIER <=1 ug/ml: Susceptible Staphylococcus epidermidis Erythromycin YUNIER >4 ug/ml: Resistant Staphylococcus epidermidis Gentamicin YUNIER <=1 ug/ml: Susceptible Staphylococcus epidermidis Linezolid YUNIER 2 ug/ml: Susceptible Staphylococcus epidermidis Minocycline YUNIER 2 ug/ml: Susceptible Staphylococcus epidermidis Oxacillin YUNIER 0.5 ug/ml: Resistant Staphylococcus epidermidis Penicillin G YUNIER 0.25 ug/ml: Resistant Staphylococcus epidermidis Tetracycline YUNIER 2 ug/ml: Susceptible Staphylococcus epidermidis Vancomycin YUNIER 1 ug/ml: Susceptible Streptococcus sanguinis Ceftriaxone ETEST 0.50 ug/ml: Susceptible Streptococcus sanguinis Penicillin G ETEST 0.75 ug/ml: Intermediate Streptococcus sanguinis Vancomycin ETEST 1.0 ug/ml: Susceptible Staphylococcus epidermidis Clindamycin YUNIER >2 ug/ml: Resistant Staphylococcus epidermidis Daptomycin YUNIER <=1 ug/ml: Susceptible Staphylococcus epidermidis Erythromycin YUNIER >4 ug/ml: Resistant Staphylococcus epidermidis Gentamicin YUNIER <=1 ug/ml: Susceptible Staphylococcus epidermidis Linezolid YUNIER 2 ug/ml: Susceptible Staphylococcus epidermidis Minocycline YUNIER 2 ug/ml: Susceptible Staphylococcus epidermidis Oxacillin YUNIER 1 ug/ml: Resistant Staphylococcus epidermidis Penicillin G YUNIER 0.5 ug/ml: Resistant Staphylococcus epidermidis Tetracycline YUNIER 2 ug/ml: Susceptible Staphylococcus epidermidis Vancomycin YUNIER 1 ug/ml: Susceptible us Channing Wilson MD LAB MICROBIOLOGY - GENERAL ORDERABLES Final Result [facility] [address] [place] [address] * (ABNORMAL) Bacterial ID Gram Positive (10/19/2024 7:55 PM EDT) Pathologist [facility] Streptococcus Result Detected( A) Not Detected 10/20/2024 9:[address] [facility] Blood Structure of left hand / Unknown Venipuncture / Unknown 10/19/2024 7:55 PM EDT 10/19/2024 8:[address] [facility] - 10/20/2024 9:31 AM EDT Analytes include: Bacillus cereus group, Bacillus subtilis group, Corynebacterium, Cutibacterium acnes (P acnes), Enterococcus, Enterococcus faecalis, Enterococcus faecium, Lactobacillus, Listeria, Listeria monocytogenes, Micrococcus, Staphylococcus, Staphylococcus aureus, Staphylococcus epidermidis, Stapylcoccus lugdunesis, Streptococcus, Streptococcus agalactiae, Streptococcus anginosus group, Streptococcus pneumoniae, Streptococcus pyogenes, Wharton gram negative target, Wharton Miguel target and mecA, mecC, Mine and vanB resistance genes. NOTE: A Not Detected result for result for a resistance gene does not indicate susceptibility to antimicrobials by mechanisms other than carrying the resistance genes detected by the BCID-GP assay. . WHARTON MIGUEL: Inclusive of Miguel albicans, Miguel glabrata, Pichia kudriavzevii (formerly Miguel krusei) and Miguel parapsilosis only. . WHARTON GRAM NEGATIVE: Includes but not limited to Acinetobacter, Bacteroides, Enterobacteriaceae, Neisseria, Pseudomonas, Serratia, Stenotrophomonas maltophilia. . Reference Value: Not detected for all analytes tested. Channing Wilson MD LAB MICROBIOLOGY - GENERAL ORDERABLES Final Result [facility] [address] [place] [id number] * (ABNORMAL) Blood Culture (Aerobic/Anaerobet Set) (10/19/2024 7:55 PM EDT) Culture Streptococcus mitis/oralis group(AA) 10/25/2024 1:[address] [facility] Comment: Isolated from aerobic culture bottle only. This isolate has been identified using the FDA Approved [employer] [place] System The organism value for this result has been updated. These results have been appended to the previously preliminary verified report. This is a corrected result. Previous organism was Streptococcus Alpha Hemolytic on 10/21/2024 at 0753 EDT. Gram Stain Gram positive cocci in chains(AA) 10/25/2024 1:[address] [facility] Comment: Organism seen in Aerobic Blood Culture Bottle. Positivity Date and Time to Detection: 10/20/2024 at 00 Day(s) and 11 Hour(s). This is an appended report. These results have been appended to a previously preliminary verified report. Blood Structure of left hand / Unknown Venipuncture / Unknown 10/19/2024 7:55 PM EDT 10/19/2024 8:[address] [facility] - 10/25/2024 1:29 PM EDT Low blood volume submitted, results may be compromised Organism Antibiotic Method Susceptibility Streptococcus mitis/oralis group Ceftriaxone ETEST 0.125 ug/ml: Susceptible Streptococcus mitis/oralis group Penicillin G ETEST 0.19 ug/ml: Intermediate Streptococcus mitis/oralis group Vancomycin ETEST 1.0 ug/ml: Susceptible Channing Wilson MD LAB MICROBIOLOGY - GENERAL ORDERABLES Edited Result - Final Performing Organization Address City/[facility]/ZIP Co de Phone Number [facility] [address] [place] [address] * (ABNORMAL) Haptoglobin (10/19/2024 7:36 PM EDT) Haptoglobin, Serum <10(L) 40 - 219 mg/dL 10/19/2024 10:37 PM EDT [facility] Blood Venous blood specimen / Unknown Venipuncture / Unknown 10/19/2024 7:36 PM EDT 10/19/2024 7:39 PM EDT Channing Wilson MD LAB BLOOD ORDERABLES Final Result Performing Organization Address City/[facility]/ZIP Co de Phone Number [facility] [address] [place] [address] * (ABNORMAL) Morphology (10/19/2024 6:20 PM EDT) RBC Fragments/Schist ocytes Slight(A) (none) LAB HEMATOLOGY METHOD 10/19/2024 8:[address] [facility] Polychromasia Moderate LAB HEMATOLOGY METHOD 10/19/2024 8:[address] [facility] Elliptocytes/Ova locytes Present LAB HEMATOLOGY METHOD 10/19/2024 8:[address] [facility] Pappenheimer Bodies Present LAB HEMATOLOGY METHOD 10/19/2024 8:[address] [facility] RBC Morphology Slide Reviewed LAB HEMATOLOGY METHOD 10/19/2024 8:[address] [facility] Target Cells Present LAB HEMATOLOGY METHOD 10/19/2024 8:[address] [facility] Teardrop Cells Present LAB HEMATOLOGY METHOD 10/19/2024 8:[address] [facility] Platelet Estimate Platelet smear estimate consistent with automated count LAB HEMATOLOGY METHOD 10/19/2024 8:[address] [facility] Blood Venous blood specimen / Unknown Venipuncture / Unknown 10/19/2024 6:20 PM EDT 10/19/2024 6:22 PM EDT Pilar Thomas MD LAB BLOOD ORDERABLES Final Resu lt [facility] [address] [place] [address] * (ABNORMAL) Reticulocytes (10/19/2024 6:20 PM EDT) Reticulocyte Absolute 227.3(H) 40.0 - 110.0 10*3/uL LAB HEMATOLOGY METHOD 10/19/2024 8:[address] [facility] Immature Reticulocyte Fraction 52.6(H) 3.1 - 17.6 % LAB HEMATOLOGY METHOD 10/19/2024 8:[address] [facility] Reticulocyte Hemoglobin 32.4 28 - 38 pg LAB HEMATOLOGY METHOD 10/19/2024 8:[address] [facility] Reticulocyte Count 9.50(H) 0.90 - 2.50 % LAB HEMATOLOGY METHOD 10/19/2024 8:[address] [facility] Blood Venous blood specimen / Unknown Venipuncture / Unknown 10/19/2024 6:20 PM EDT 10/19/2024 6:22 PM EDT Pilar Thomas MD LAB BLOOD ORDERABLES Final Resu lt [facility] [address] [place] [address] * (ABNORMAL) CBC w/diff (10/19/2024 6:20 PM EDT) WBC Count 32.90(H) 3.70 - 10.30 10*3/uL LAB HEMATOLOGY METHOD 10/19/2024 8:[address] [facility] RBC Count 2.41(L) 4.60 - 6.10 10*6/uL LAB HEMATOLOGY METHOD 10/19/2024 8:[address] [facility] HGB 7.0(L) 13.7 - 17.5 g/dL LAB HEMATOLOGY METHOD 10/19/2024 8:[address] [facility] HCT 21.2(L) 40.0 - 51.0 % LAB HEMATOLOGY METHOD 10/19/2024 8:[address] [facility] Platelet Count 276 155 - 369 10*3/uL LAB HEMATOLOGY METHOD 10/19/2024 8:[address] [facility] MCV 88 79 - 98 fL LAB HEMATOLOGY METHOD 10/19/2024 8:[address] [facility] MCH 29.0 26.0 - 32.0 pg LAB HEMATOLOGY METHOD 10/19/2024 8:[address] [facility] MCHC 33.0 30.7 - 35.5 g/dL LAB HEMATOLOGY METHOD 10/19/2024 8:[address] [facility] RDW 19.2(H) 11.5 - 14.5 % LAB HEMATOLOGY METHOD 10/19/2024 8:[address] [facility] MPV LAB HEMATOLOGY METHOD 10/19/2024 8:[address] [facility] Comment:Not Measured nRBC 0.4(H) <=0.0 per 100 WBCs LAB HEMATOLOGY METHOD 10/19/2024 8:[address] [facility] Differential Type Automated LAB HEMATOLOGY METHOD 10/19/2024 8:[address] [facility] Neutrophils % 88 % LAB HEMATOLOGY METHOD 10/19/2024 8:[address] [facility] Lymphocytes % 7 % LAB HEMATOLOGY METHOD 10/19/2024 8:[address] [facility] Monocytes % 3 % LAB HEMATOLOGY METHOD 10/19/2024 8:[address] [facility] Eosinophils % 0 % LAB HEMATOLOGY METHOD 10/19/2024 8:[address] [facility] Basophils % 0 % LAB HEMATOLOGY METHOD 10/19/2024 8:[address] [facility] Immature Granulocytes % 2 % LAB HEMATOLOGY METHOD 10/19/2024 8:[address] [facility] Neutrophils Absolute 28.66(H) 1.60 - 6.10 10*3/uL LAB HEMATOLOGY METHOD 10/19/2024 8:[address] [facility] Lymphocytes Absolute 2.40 1.20 - 3.90 10*3/uL LAB HEMATOLOGY METHOD 10/19/2024 8:[address] [facility] Monocytes Absolute 0.99(H) 0.30 - 0.90 10*3/uL LAB HEMATOLOGY METHOD 10/19/2024 8:[address] [facility] Eosinophils Absolute 0.04 0.00 - 0.50 10*3/uL LAB HEMATOLOGY METHOD 10/19/2024 8:[address] [facility] Basophils Absolute 0.13(H) 0.00 - 0.10 10*3/uL LAB HEMATOLOGY METHOD 10/19/2024 8:[address] [facility] Immature Granulocytes Absolute 0.68(H) 0.00 - 0.06 10*3/uL LAB HEMATOLOGY METHOD 10/19/2024 8:[address] [facility] Blood Venous blood specimen / Unknown Venipuncture / Unknown 10/19/2024 6:20 PM EDT 10/19/2024 6:[address] [facility] - 10/19/2024 8:09 PM EDT Therapeutic decision making should be based on absolute values, rather than percentages. us Pilar Thomas MD LAB BLOOD ORDERABLES Final Resu lt [facility] [address] [place] [address] * (ABNORMAL) Protime-INR (10/19/2024 6:09 PM EDT) Prothrombin Time 17.4(H) 12.0 - 14.3 sec LAB COAGULATION METHOD 10/19/2024 8:[address] [facility] INR 1.4(H) 0.9 - 1.1 LAB COAGULATION METHOD 10/19/2024 8:45 PM EDT [facility] Blood Venous blood specimen / Unknown 10/19/2024 6:09 PM EDT 10/19/2024 6:[address] [facility] - 10/19/2024 8:45 PM EDT OPTIMAL INR RANGES FOR PATIENT ON ORAL ANTICOAGULANT THERAPY Prevention of venous thromboembolism INR 2.0 to 3.0 In patients with heart disease: Atrial fibrillation INR 2.0 to 3.0 Valvular heart disease INR 2.0 to 3.0 Tissue heart valves INR 2.0 to 3.0 Mechanical prosthetic valves INR 2.5 to 3.5 Prevention of recurrent [place] INR 2.5 to 3.5 Channing Wilson MD LAB BLOOD ORDERABLES Final Result [facility] [address] [place] [address] * APTT (10/19/2024 6:09 PM EDT) Pathologist [facility] aPTT 28 25 - 35 sec LAB COAGULATION METHOD 10/19/2024 8:45 PM EDT [facility] Blood Venous blood specimen / Unknown 10/19/2024 6:09 PM EDT 10/19/2024 6:24 PM EDT Channing Wilson MD LAB BLOOD ORDERABLES Final Result [facility] [address] [place] [address] * Light Green Top (10/19/2024 6:09 PM EDT) Extra Hold for add-ons 10/19/2024 9:[address] [facility] Comment:Auto resulted. Blood Venous blood specimen / Unknown 10/19/2024 6:09 PM EDT 10/19/2024 6:24 PM EDT Pilar Thomas MD LAB BLOOD ORDERABLES Final Resu lt [facility] [address] [place] [address] * Light Blue Top (10/19/2024 6:09 PM EDT) Extra Hold for add-ons 10/19/2024 9:01 PM EDT [facility] Comment:Auto resulted. Blood Venous blood specimen / Unknown 10/19/2024 6:09 PM EDT 10/19/2024 6:24 PM EDT Pilar Thomas MD LAB BLOOD ORDERABLES Final Resu lt Performing Organization Address [facility] Co de Phone Number [facility] [address] [place] [address] * (ABNORMAL) Procalcitonin, Plasma (10/19/2024 6:01 PM EDT) Procalcitonin, Plasma 29.10(H) <0.09 ng/mL 10/20/2024 12:46 AM EDT [facility] Blood Venous blood specimen / Unknown Venipuncture / Unknown 10/19/2024 6:01 PM EDT 10/19/2024 6:[address] [facility] - 10/20/2024 12:46 AM EDT Procalcitonin concentrations in healthy individuals are <0.09 ng/mL. Published data support the following interpretive risk assessment: An elevated procalcitonin result does not always indicate sepsis. Various non-infectious conditions are known to increase procalcitonin. Results should be considered in the context of clinical symptoms and other laboratory tests. Procalcitonin >2.0 ng/mL: Concentrations >2.0 ng/mL on the first day of ICU admission are associated with a higher risk of progression to severe sepsis and/or septic shock. The change in PCT over time may help predict 28 day mortality risk. Please consult [email or web address]-[email or web address] for more information. Test performed at [facility], [facility]. us Malik Trent APRN LAB BLOOD ORDERABLES Final Re sult Performing Organization Address City/[facility]/ZIP Co de Phone Number [facility] [address] [place] [address] * (ABNORMAL) LDH, Lactate dehydrogenase (10/19/2024 6:01 PM EDT) LDH, Plasma 1,369(H) 116 - 250 U/L 10/19/2024 8:[address] [facility] Comment:Hemolyzed, result ma y be falsely increased. Blood Venous blood specimen / Unknown Venipuncture / Unknown 10/19/2024 6:01 PM EDT 10/19/2024 6:04 PM EDT us Channing Wilson MD LAB BLOOD ORDERABLES Final Result Performing Organization Address [facility]/ZIP Co de Phone Number [facility] [address] [place] [address] * (ABNORMAL) CMP (10/19/2024 6:01 PM EDT) Glucose, Plasma 107(H) 74 - 99 mg/dL 10/19/2024 6:[address] [facility] BUN, Plasma 11 7 - 21 mg/dL 10/19/2024 6:[address] [facility] Creatinine, Plasma 0.88 0.70 - 1.20 mg/dL 10/19/2024 6:[address] [facility] BUN/Creatinine Ratio 13 10/19/2024 6:[address] [facility] Sodium, Plasma 133(L) 136 - 145 mmol/L 10/19/2024 6:[address] [facility] Potassium, Plasma 4.1 3.6 - 4.9 mmol/L 10/19/2024 6:[address] [facility] Comment:Hemolyzed, result ma y be falsely increased. Chloride, Plasma 104 97 - 107 mmol/L 10/19/2024 6:[address] [facility] CO2, Plasma 18(L) 22 - 29 mmol/L 10/19/2024 6:[address] [facility] Anion Gap 11 6 - 16 mmol/L 10/19/2024 6:[address] [facility] Total Calcium, Plasma 8.1(L) 8.9 - 10.2 mg/dL 10/19/2024 6:[address] [facility] Total Protein 8.1(H) 6.3 - 7.9 g/dL 10/19/2024 6:[address] [facility] Albumin, Plasma 3.8 3.5 - 5.2 g/dL 10/19/2024 6:[address] [facility] AST, Plasma 110(H) 10 - 50 U/L 10/19/2024 6:[address] [facility] Comment:Hemolyzed, result ma y be falsely increased. ALT, Plasma 45 10 - 50 U/L 10/19/2024 6:[address] [facility] Alkaline Phosphatase, Plasma 69 40 - 115 U/L 10/19/2024 6:[address] [facility] Total Bilirubin, Plasma 3.4(H) 0.2 - 1.1 mg/dL 10/19/2024 6:[address] [facility] eGFRcr 118.6 mL/min/1.7 3m*2 10/19/2024 6:[address] [facility] Comment:Reported eGFRcr in m L/min/1.73m2 is based the CKD-EPI 2020 equation that does not use a race coefficient. Blood Venous blood specimen / Unknown Venipuncture / Unknown 10/19/2024 6:01 PM EDT 10/19/2024 6:04 PM EDT us Pilar Thomas MD LAB BLOOD ORDERABLES Final Resu lt [facility] [address] [place] [address] * XR Chest 1 View (10/19/2024 5:45 PM EDT) Anatomical Region Laterality Modality Chest Digital Radiogra phy Impressions 10/19/2024 6:21 PM EDT No acute focal airspace consolidation. CRITICAL RESULT: No. COMMUNICATION: Per this written report. Drafted by Filiberto Boston MD on 10/19/2024 6:21 PM Final report signed by Filiberto Boston MD on 10/19/2024 6:21 PM Narrative 10/19/2024 6:21 PM EDT CLINICAL INDICATION: reaction to transfusion TECHNIQUE: XR CHEST 1 VIEW COMPARISON: 10/07/2024 FINDINGS: No acute focal airspace consolidation. No pneumothorax. Cardiomediastinal silhouette is grossly within normal limits. No acute osseous abnormality. Redemonstration right internal jugular Port-A-Cath in situ, tip projects over region of the right atrium, similar over the interval. Procedure Note Filiberto Boston MD - 10/19/2024 CLINICAL INDICATION: reaction to transfusion TECHNIQUE: XR CHEST 1 VIEW COMPARISON: 10/07/2024 FINDINGS: No acute focal airspace consolidation. No pneumothorax. Cardiomediastinalsilhouette is grossly within normal limits. No acute osseous abnormality.Redemonstration right internal jugular Port-A-Cath in situ, tip projectsover region of the right atrium, similar over the interval. IMPRESSION: No acute focal airspace consolidation. CRITICAL RESULT: No. COMMUNICATION: Per this written report. Drafted by iFliberto Boston MD on 10/19/2024 6:21 PM Final report signed by Filiberto Boston MD on 10/19/2024 6:21 PM Pilar Thomas MD IMG XR PROCEDURES Final Result * EKG now - STAT (adult) (10/19/2024 5:03 PM EDT) EKG DIAGNOSIS CLASS Abnormal MUSE ECG Ventricular Rate 109 BPM MUSE ECG Atrial Rate 109 BPM MUSE ECG [place] Interval 138 ms MUSE ECG QRSD Interval 66 ms MUSE ECG QT Interval 316 ms MUSE ECG QTC Interval 425 ms MUSE ECG P [place] 70 degrees MUSE ECG R [place] 68 degrees MUSE ECG T Wave [place] 6 degrees MUSE ECG Diagnosis Sinus tachycardia MUSE ECG Diagnosis Nonspecific ST and T wave abnormality MUSE ECG Diagnosis Abnormal ECG MUSE ECG Diagnosis Compared to last ECG MUSE ECG Diagnosis T-waves are slightly inverted MUSE ECG Diagnosis Confirmed by Tito Dean ([id number]) on 10/20/2024 11:12:18 AM MUSE ECG 10/19/2024 5:03 PM EDT 10/20/2024 11:12 AM EDT us Channing Wilson MD ECG ORDERABLES Final Resul t MUSE ECG documented in this encounter Visit Diagnoses Diagnosis Blood transfusion reaction, initial encounter- Primary Sickle cell pain crisis (CMS/HCC) Blood transfusion reaction, initial encounter documented in this encounter Admitting Diagnoses Diagnosis Blood transfusion reaction, initial encounter documented in this encounter Administered Medications Inactive Administered Medications - up to 3 most recent administrations Medication Order MAR Action Action Date Dose Rate Site acetaminophen (Tylenol) tablet 1,000 mg 1,000 mg, Oral, Once, 1 dose, On Tue10/19/24 at 1730, STAT Given 10/19/2024 6:03 PM EDT 1,000 mg acetaminophen (Tylenol) tablet 1,000 mg 1,000 mg, Oral, Once, 1 dose, On [place] 11/01/24 at 1215, Routine Given 11/01/2024 11:20 AM EDT 1,000 mg acetaminophen (Tylenol) tablet 650 mg 650 mg, Oral, Every 8 hours PRN, Starting on 10/20/24 at 0217, Until Tue11/02/24 at 1800, Routine, mild pain, fever Given 11/02/2024 3:26 AM EDT 650 mg Given 11/01/2024 7:37 PM EDT 650 mg Given 11/01/2024 11:36 AM EDT 650 mg acetaminophen (Tylenol) tablet 650 mg 650 mg, Oral, Once, 1 dose, On 10/21/24 at 0630, Routine Given 10/21/2024 5:43 AM EDT 650 mg acetaminophen (Tylenol) tablet 650 mg 650 mg, Oral, Once, 1 dose, On 10/22/24 at 1315, Routine Given 10/22/2024 2:48 PM EDT 650 mg apixaban (Eliquis) tablet 5 mg 5 mg, Oral, 2 times daily, First dose on 10/20/24 at 0900, Until Discontinued, Routine Given 11/02/2024 9:36 AM EDT 5 mg Given 11/01/2024 9:23 PM EDT 5 mg Given 11/01/2024 8:17 AM EDT 5 mg cefepime (Maxipime) 2 g in sodium chloride 0.9% 100 mL IVPB (vial adapter required) 2 g, Intravenous, Every 8 hours, First dose on 10/20/24 at 0935, Until Discontinued, STAT New Bag 10/20/2024 11:15 AM EDT 2 g 36.7 mL/hr cefTRIAXone (Rocephin) 2 g in sodium chloride 0.9% 100 mL IVPB (vial adapter required) 2 g, Intravenous, Every 24 hours, First dose on 10/20/24 at 1800, Until Discontinued, Routine New Bag 10/22/2024 9:07 PM EDT 2 g 220 mL/hr New Bag 10/21/2024 6:08 PM EDT 2 g 220 mL/hr New Bag 10/20/2024 5:23 PM EDT 2 g 220 mL/hr diphenhydrAMINE (Benadryl) injection 25 mg 25 mg, Intravenous, Once, 1 dose, On Tue10/19/24 at 1730, STAT Given 10/19/2024 5:46 PM EDT 25 mg diphenhydrAMINE (Benadryl) injection 50 mg 50 mg, Intravenous, Once, 1 dose, On Tue10/19/24 at 2040, STAT Given 10/19/2024 8:43 PM EDT 50 mg diphenhydrAMINE (Benadryl) injection 50 mg 50 mg, Intravenous, Every 4 hours PRN, 2 doses, Starting on 10/20/24 at 0007, Until Tue10/20/24 at 0740, Routine, itching Given 10/20/2024 7:40 AM EDT 50 mg Given 10/20/2024 3:01 AM EDT 50 mg diphenhydrAMINE (Benadryl) injection 50 mg 50 mg, Intravenous, Every 4 hours PRN, Starting on 10/20/24 at 1003, Until Tue11/02/24 at 1800, Routine, itching Given 11/02/2024 1:52 PM EDT 50 mg Given 11/02/2024 9:35 AM EDT 50 mg Given 11/02/2024 5:29 AM EDT 50 mg diphenhydrAMINE (Benadryl) injection 50 mg 50 mg, Intravenous, Once, 1 dose, On Tue10/22/24 at 1315, Routine Given 10/22/2024 2:59 PM EDT 50 mg diphenhydrAMINE (Benadryl) injection 50 mg 50 mg, Intravenous, Once, 1 dose, On [place] 11/01/24 at 1215, Routine Given 11/01/2024 11:19 AM EDT 50 mg folic acid (Folvite) tablet 1 mg 1 mg, Oral, Daily, First dose on 10/20/24 at 0900, Until Discontinued, Routine Given 11/02/2024 9:36 AM EDT 1 mg Given 11/01/2024 8:17 AM EDT 1 mg Given 10/31/2024 8:54 AM EDT 1 mg hydrALAZINE (Apresoline) injection 10 mg 10 mg, Intravenous, Every 6 hours PRN, Starting on Tue10/29/24 at 1231, Until Tue11/02/24 at 1800, Routine, high blood pressure, For SBP >160 mmHg Given 10/29/2024 1:06 PM EDT 10 mg HYDROmorphone (Dilaudid) injection 1 mg 1 mg, Intravenous, Every 3 hours PRN, Starting on Tue10/28/24 at 1037, Until Tue10/31/24 at 0947, Routine, severe pain Given 10/31/2024 5:32 AM EDT 1 mg Given 10/31/2024 1:08 AM EDT 1 mg Given 10/30/2024 9:19 PM EDT 1 mg HYDROmorphone (Dilaudid) injection 1 mg 1 mg, Intravenous, Every 4 hours PRN, Starting on Tue10/31/24 at 0946, Until Tue11/02/24 at 0649, Routine, severe pain Given 11/02/2024 5:29 AM EDT 1 mg Given 11/01/2024 10:06 PM EDT 1 mg Given 11/01/2024 5:49 PM EDT 1 mg HYDROmorphone (Dilaudid) injection 1 mg 1 mg, Intravenous, Every 4 hours PRN, Starting on Tue11/02/24 at 0907, Until Tue11/02/24 at 1023, Routine, severe pain Given 11/02/2024 9:31 AM EDT 1 mg HYDROmorphone (Dilaudid) injection 2 mg 2 mg, Intravenous, Once, 1 dose, On Tue10/19/24 at 1730, STAT Given 10/19/2024 6:04 PM EDT 2 mg HYDROmorphone (Dilaudid) injection 2 mg 2 mg, Intravenous, Once, 1 dose, On Tue10/19/24 at 2035, STAT Given 10/19/2024 8:48 PM EDT 2 mg HYDROmorphone (Dilaudid) injection 2 mg 2 mg, Intravenous, Every 4 hours PRN, 2 doses, Starting on 10/20/24 at 0004, Until 10/20/24 at 0741, Routine, severe pain Given 10/20/2024 7:41 AM EDT 2 mg Given 10/20/2024 3:02 AM EDT 2 mg HYDROmorphone (Dilaudid) injection 2 mg 2 mg, Intravenous, Every 2 hour PRN, Starting on 10/20/24 at 1003, Until 10/28/24 at 1037, Routine, severe pain Given 10/28/2024 9:21 AM EDT 2 mg Given 10/28/2024 7:24 AM EDT 2 mg Given 10/28/2024 4:18 AM EDT 2 mg hydroxyurea (Hydrea) capsule 500 mg 500 mg, Oral, 2 times daily, Hazardous Drug-Tier 1 Precautions. Dispose in BLACK Hazardous Waste Container. Chemotherapy: refer to [id number]., First dose on 10/20/24 at 0900 Given 11/02/2024 11:59 AM EDT 500 mg Given 11/01/2024 9:23 PM EDT 500 mg Given 11/01/2024 8:21 AM EDT 500 mg lactated Ringer's infusion 500 mL 500 mL, Intravenous, Once, 1 dose, On Tue10/19/24 at 1730, STAT New Bag 10/19/2024 6:04 PM EDT 500 mL lactated Ringer's infusion 150 mL/hr, Intravenous, Continuous, Starting on 10/20/24 at 0005, Until 10/21/24 at 2359, Routine Rate/Dose Verify 10/21/2024 11:00 PM EDT 150 mL/hr 150 mL/hr Rate/Dose Verify 10/21/2024 10:00 PM EDT 150 mL/hr 150 mL /hr Rate/Dose Verify 10/21/2024 9:00 PM EDT 150 mL/hr 150 mL/ hr lactated Ringer's infusion 150 mL/hr, Intravenous, Continuous, Starting on Tue10/22/24 at 1315, Until Tue10/31/24 at 0701, Routine New Bag 10/31/2024 12:30 AM EDT 150 mL/hr 150 m L/hr Rate/Dose Verify 10/30/2024 6:00 PM EDT 150 mL/hr 150 mL/ hr Rate/Dose Verify 10/30/2024 12:00 PM EDT 150 mL/hr 150 mL /hr lactated Ringer's infusion 150 mL/hr, Intravenous, Continuous, Starting on Tue10/31/24 at 0800, Until Tue10/31/24 at 1855, Routine Rate/Dose Verify 10/31/2024 12:06 PM EDT 150 mL/hr 150 mL/hr New Bag 10/31/2024 8:56 AM EDT 150 mL/hr 150 mL/hr magnesium sulfate IVPB 2 g 2 g, Intravenous, Once, 1 dose, On Tue10/29/24 at 0815, Routine New Bag 10/29/2024 8:27 AM EDT 2 g 25 mL/hr magnesium sulfate IVPB 2 g 2 g, Intravenous, Once, 1 dose, On Tue10/31/24 at 0745, Routine New Bag 10/31/2024 8:54 AM EDT 2 g 25 mL/hr magnesium sulfate IVPB 2 g 2 g, Intravenous, Once, 1 dose, On Tue11/02/24 at 0745, Routine New Bag 11/02/2024 7:51 AM EDT 2 g 25 mL/hr methocarbamol (Robaxin) tablet 750 mg 750 mg, Oral, 4 times daily PRN, Starting on 10/20/24 at 0000, Until Tue11/02/24 at 1800, Routine, muscle spasms Given 10/28/2024 6:17 AM EDT 750 mg Given 10/27/2024 10:26 PM EDT 750 mg Given 10/27/2024 12:50 AM EDT 750 mg mupirocin (Bactroban) 2 % ointment 1 Application Each Nostril, 2 times daily, 10 doses, First dose on Tue10/20/24 at 2100, Last dose on Tue10/25/24 at 0900, Routine Given 10/22/2024 8:50 PM EDT 1 Application Given 10/21/2024 8:33 PM EDT 1 Application Given 10/21/2024 8:03 AM EDT 1 Application NIFEdipine XL (Procardia XL) 24 hr tablet 30 mg 30 mg, Oral, Once, 1 dose, On Tue10/29/24 at 0030, Routine Given 10/29/2024 2:11 AM EDT 30 mg NIFEdipine XL (Procardia XL) 24 hr tablet 30 mg 30 mg, Oral, Daily, First dose on Tue10/30/24 at 0900, Until Discontinued, Routine Given 11/02/2024 9:36 AM EDT 30 mg Given 11/01/2024 8:17 AM EDT 30 mg Given 10/31/2024 8:54 AM EDT 30 mg oxyCODONE (Roxicodone) immediate release tablet 30 mg 30 mg, Oral, Once, 1 dose, On Tue10/19/24 at 1920, STAT Given 10/19/2024 7:28 PM EDT 30 mg oxyCODONE (Roxicodone) immediate release tablet 30 mg 30 mg, Oral, Every 4 hours PRN, Starting on Tue10/20/24 at 0001, Until Tue10/23/24 at 1208, severe pain Given 10/23/2024 10:15 AM EDT 30 mg Given 10/23/2024 6:10 AM EDT 30 mg Given 10/23/2024 2:02 AM EDT 30 mg oxyCODONE (Roxicodone) immediate release tablet 30 mg 30 mg, Oral, Every 4 hours PRN, Starting on Tue10/23/24 at 1207, Until Tue10/28/24 at 1138, moderate pain Given 10/28/2024 10:10 AM EDT 30 mg Given 10/28/2024 6:17 AM EDT 30 mg Given 10/28/2024 2:28 AM EDT 30 mg oxyCODONE (Roxicodone) immediate release tablet 40 mg 40 mg, Oral, Every 4 hours PRN, Starting on Tue10/28/24 at 1138, Until Tue11/02/24 at 1800, moderate pain Given 11/02/2024 3:19 PM EDT 40 mg Given 11/02/2024 11:59 AM EDT 40 mg Given 11/02/2024 7:48 AM EDT 40 mg senna (Senokot) tablet 17.2 mg 17.2 mg, Oral, Daily, First dose (after last modification) on 10/29/24 at 0900, Until Discontinued, Routine Given 11/01/2024 8:17 AM EDT 17.2 mg Given 10/31/2024 8:53 AM EDT 17.2 mg senna (Senokot) tablet 8.6 mg 8.6 mg (1 tablet), Oral, Daily, First dose on 10/20/24 at 0900, Until Discontinued, Routine Given 10/27/2024 8:01 AM EDT 8.6 mg Given 10/25/2024 8:04 AM EDT 8.6 mg Given 10/23/2024 9:10 AM EDT 8.6 mg sodium chloride 0.9 % flush 10 mL 10 mL, Intravenous, Every 12 hours, First dose on 10/20/24 at 0000, Until Discontinued, Routine Given 11/02/2024 12:00 PM EDT 10 mL Given 11/01/2024 11:46 AM EDT 10 mL Given 11/01/2024 12:33 AM EDT 10 mL sodium chloride 0.9 % flush 10 mL 10 mL, Intravenous, As needed, Starting on Tue10/19/24 at 2353, Until Tue11/02/24 at 1800, Routine, line care sodium chloride 0.9 % infusion 50 mL/hr, Intravenous, Continuous, Starting on Tue10/31/24 at 2000, Until Tue11/01/24 at 0649, Routine New Bag 10/31/2024 8:30 PM EDT 50 mL/hr 50 mL/hr sodium chloride 0.9 % infusion 100 mL/hr, Intravenous, Continuous, Starting on Tue11/01/24 at 0745, Until Tue11/01/24 at 1922, Routine Rate/Dose Verify 11/01/2024 4:14 PM EDT 100 mL/hr 100 mL/hr Rate/Dose Verify 11/01/2024 11:43 AM EDT 100 mL/hr 100 mL /hr Rate/Dose Verify 11/01/2024 8:04 AM EDT 100 mL/hr 100 mL/ hr vancomycin (Vancocin) 2,500 mg in sodium chloride 0.9 % 500 mL IVPB 2,500 mg, Intravenous (Continuous Infusion), Every 24 hours (continuous), 12 doses, First dose on Tue10/29/24 at 1100, Last dose on Tue11/09/24 at 1111, at 23.8 mL/hr, Routine New Bag 11/02/2024 11:58 AM EDT 2,500 mg 23.8 mL/hr New 11/01/2024 1:50 PM EDT 2,500 mg 23.8 mL/hr 10/31/2024 10:44 AM EDT 2,500 mg 23.8 mL/hr vancomycin (Vancocin) 3,500 mg in sodium chloride 0.9 % 500 mL IVPB 3,500 mg, Intravenous (Continuous Infusion), Every 24 hours (continuous), First dose (after last modification) on Tue10/27/24 at 0900, Until Discontinued, at 24.2 mL/hr, Routine New Bag 10/28/2024 6:12 PM EDT 3,500 mg 24.2 mL/hr 10/27/2024 9:16 AM EDT 3,500 mg 24.2 mL/hr vancomycin (Vancocin) 4,500 mg in sodium chloride 0.9 % 500 mL IVPB 4,500 mg, Intravenous (Continuous Infusion), Every 24 hours (continuous), 12 doses, First dose on Tue10/25/24 at 1600, Last dose on Tue11/05/24 at 1611, at 24.6 mL/hr, Routine New Bag 10/25/2024 4:58 PM EDT 4,500 mg 24 .6 mL/hr vancomycin (Vancocin) 4,500 mg in sodium chloride 0.9 % 500 mL IVPB 4,500 mg, Intravenous (Continuous Infusion), Every 24 hours (continuous), First dose (after last modification) on Tue10/26/24 at 1615, Until Discontinued, at 24.6 mL/hr, Routine New Bag 10/26/2024 5:34 PM EDT 4,500 mg 24.6 mL/hr Vancomycin HCl in NaCl (Vancocin) IVPB 1,000 mg 1,000 mg, Intravenous, Every 8 hours, First dose (after last modification) on 10/21/24 at 0000, Until Discontinued, at 250 mL/hr, Routine Given 10/22/2024 8:30 AM EDT 1,000 mg 250 mL/hr Given 10/22/2024 12:36 AM EDT 1,000 mg 250 mL/hr Given 10/21/2024 4:07 PM EDT 1,000 mg 250 mL/hr Vancomycin HCl in NaCl (Vancocin) IVPB 1,000 mg 1,000 mg, Intravenous, Every 8 hours, First dose on 10/22/24 at 1600, Until Discontinued, at 250 mL/hr, Routine Given 10/25/2024 8:07 AM EDT 1,000 mg 250 mL/hr Given 10/24/2024 11:11 PM EDT 1,000 mg 250 mL/hr Given 10/24/2024 3:57 PM EDT 1,000 mg 250 mL/hr vancomycin in NS (Vancocin) IVPB 1,500 mg 1,500 mg (rounded from 1,560 mg = 20 mg/kg 78 kg), Intravenous, Once, 1 dose, On 10/20/24 at 0945, at 166.7 mL/hr, STAT New Bag 10/20/2024 12:13 PM EDT 1,500 mg 166.7 mL/ hr documented in this encounter Active and Recently Administered Medications Times are shown in EDT. Scheduled Medication Order 10/31/2024 11/01/2024 11/02/2024 acetaminophen (Tylenol) tablet 1,000 mg (COMPLETED) 1,000 mg, Oral, Once, 1 dose, On [place] 11/01/24 at 1215, Routine 1120 (Given - Provider: Samaria Pettit, NASEEM) apixaban (Eliquis) tablet 5 mg 5 mg, Oral, 2 times daily, First dose on 10/20/24 at 0900, Until Discontinued, Routine 0854 (Given - Provider: Samaria Pettit RN)2026 (Given - Provider: Willa Foster) 08 (Given - Provider: Samaria Pettit RN)2122 (Given - Provider: Velasquez Lucio) 0936 (Given - Provider: Maurice Cardozo RN) diphenhydrAMINE (Benadryl) injection 50 mg (COMPLETED) 50 mg, Intravenous, Once, 1 dose, On [place] 11/01/24 at 1215, Routine 1119 (Given - Provider: Samaria Pettit RN) folic acid (Folvite) tablet 1 mg 1 mg, Oral, Daily, First dose on 10/20/24 at 0900, Until Discontinued, Routine 0854 (Given - Provider: Samaria Pettit RN) 0817 (Given - Provider: Samaria Pettit RN) 0936 (Given - Provider: Maurice Cardozo RN) hydroxyurea (Hydrea) capsule 500 mg 500 mg, Oral, 2 times daily, Hazardous Drug-Tier 1 Precautions. Dispose in BLACK Hazardous Waste Container. Chemotherapy: refer to [id number]., First dose on 10/20/24 at 0900 0854 (Given - Provider: Samaria Pettit RN)2026 (Given - Provider: Willa Foster) 0821 (Given - Provider: Samaria Pettit RN)2123 (Given - Provider: Velasquez Lucio) 1159 (Given - Provider: Maurice Cardozo RN) magnesium sulfate IVPB 2 g (COMPLETED) 2 g, Intravenous, Once, 1 dose, On Tue10/31/24 at 0745, Routine 0854 (New Bag - Provider: Samaria Pettit RN) magnesium sulfate IVPB 2 g (COMPLETED) 2 g, Intravenous, Once, 1 dose, On Tue11/02/24 at 0745, Routine 0751 (New Bag - Provider: Maurice Cardozo, NASEEM) NIFEdipine XL (Procardia XL) 24 hr tablet 30 mg 30 mg, Oral, Daily, First dose on Tue10/30/24 at 0900, Until Discontinued, Routine 0854 (Given - Provider: Samaria Pettit RN) 0817 (Given - Provider: Samaria Pettit RN) 0936 (Given - Provider: Maurice Cardozo RN) senna (Senokot) tablet 17.2 mg 17.2 mg, Oral, Daily, First dose (after last modification) on Tue10/29/24 at 0900, Until Discontinued, Routine 0853 (Given - Provider: Samaria Pettit RN) 0817 (Given - Provider: Samaria Pettit RN) 1023 (Not Given - Provider: Maurice M Cas, RN - Reason: Patient/family refused) sodium chloride 0.9 % flush 10 mL(Linked Group 1) 10 mL, Intravenous, Every 12 hours, First dose on Tue10/20/24 at 0000, Until Discontinued, Routine 0000 (Canceled Entry - Provider: Yojana Knight)1233 (Given - Provider: Samaria Pettit RN) 0033 (Given - Provider: Willa Foster)1146 (Given - Provider: Samaria Pettit RN) 0059 (Canceled Entry - Provider: Velasquez Lucio)1200 (Given - Provider: Maurice Cardozo, NASEEM) vancomycin (Vancocin) 2,500 mg in sodium chloride 0.9 % 500 mL IVPB 2,500 mg, Intravenous (Continuous Infusion), Every 24 hours (continuous), 12 doses, First dose on Tue10/29/24 at 1100, Last dose on Tue11/09/24 at 1111, at 23.8 mL/hr, Routine 1044 (New Bag - Provider: Samaria Pettit RN) 1144 (Stopped - Provider: Samaria Pettit RN - Comment: PT receiving PRBC and only one access)1350 (New Bag - Provider: Samaria Pettit RN - Comment: pt receiving PRBC) 1158 (New Bag - Provider: Maurice Cardozo, RN) Continuous Medication Order 10/31/2024 11/01/2024 11/02/2024 lactated Ringer's infusion (CANCELED) 150 mL/hr, Intravenous, Continuous, Starting on Tue10/22/24 at 1315, Until Tue10/31/24 at 0701, Routine 0030 (New Bag - Provider: Yojana Knight) lactated Ringer's infusion () 150 mL/hr, Intravenous, Continuous, Starting on Tue10/31/24 at 0800, Until Tue10/31/24 at 1855, Routine 0856 (New Bag - Provider: Samaria Pettit RN)1206 (Rate/Dose Verify - Provider: Samaria Pettit RN) sodium chloride 0.9 % infusion (CANCELED) 50 mL/hr, Intravenous, Continuous, Starting on Tue10/31/24 at 2000, Until Tue11/01/24 at 0649, Routine 2030 (New Bag - Provider: Willa Foster) sodium chloride 0.9 % infusion () 100 mL/hr, Intravenous, Continuous, Starting on [place] 11/01/24 at 0745, Until [place] 11/01/24 at 1922, Routine 0723 (New Bag - Provider: Samaria Pettit RN)0804 (Rate/Dose Verify - Provider: Samaria Pettit RN)1142 (Stopped - Provider: Samaria Ptetit RN - Comment: pt receiving PRBC)1143 (Rate/Dose Verify - Provider: Samaria Pettit RN)1614 (Rate/Dose Verify - Provider: Samaria Pettit RN) PRN Medication Order 10/31/2024 11/01/2024 11/02/2024 acetaminophen (Tylenol) tablet 650 mg 650 mg, Oral, Every 8 hours PRN, Starting on 10/20/24 at 0217, Until Tue11/02/24 at 1800, Routine, mild pain, fever 1136 (Given - Provider: Samaria Pettit RN)1937 (Given - Provider: Velasquez Lucio) 0326 (Given - Provider: Velasquez Lucio) bisacodyl (Dulcolax) EC tablet 10 mg 10 mg, Oral, Daily PRN, Starting on 10/19/24 at 2355, Until Tue11/02/24 at 1800, Routine, constipation diclofenac (Voltaren) 1 % topical gel 4 g 4 g, Topical, 4 times daily PRN, Starting on Tue10/19/24 at 2349, Until Tue11/02/24 at 1800, Routine, pain diphenhydrAMINE (Benadryl) injection 50 mg 50 mg, Intravenous, Every 4 hours PRN, Starting on 10/20/24 at 1003, Until Tue11/02/24 at 1800, Routine, itching 0108 (Given - Provider: Yojana Knight)0532 (Given - Provider: Yojana Knight)1003 (Given - Provider: Samaria Pettit RN)1359 (Given - Provider: Samaria Pettit RN)1759 (Given - Provider: Samaria Pettit, NASEEM)2200 (Given - Provider: Willa Foster) 0200 (Given - Provider: Willa Foster)0600 (Given - Provider: Willa Foster)0957 (Given - Provider: Samaria Pettit RN)1135 (Given - Provider: Samaria Pettit RN)1349 (Given - Provider: Samaria Pettit RN)1749 (Given - Provider: Samaria Pettit RN)2206 (Given - Provider: Velasquez Lucio) 0529 (Given - Provider: Velasquez Lucio)0935 (Given - Provider: Maurice Cardozo RN)1352 (Given - Provider: Maurice Cardozo RN) hydrALAZINE (Apresoline) injection 10 mg 10 mg, Intravenous, Every 6 hours PRN, Starting on Tue10/29/24 at 1231, Until Tue11/02/24 at 1800, Routine, high blood pressure, For SBP >160 mmHg HYDROmorphone (Dilaudid) injection 1 mg (CANCELED) 1 mg, Intravenous, Every 3 hours PRN, Starting on Tue10/28/24 at 1037, Until Tue10/31/24 at 0947, Routine, severe pain 0108 (Given - Provider: Yojana Knight)0532 (Given - Provider: Yojana Knight) HYDROmorphone (Dilaudid) injection 1 mg (CANCELED) 1 mg, Intravenous, Every 4 hours PRN, Starting on Tue10/31/24 at 0946, Until Tue11/02/24 at 0649, Routine, severe pain 1003 (Given - Provider: Samaria Pettit RN)1359 (Given - Provider: Samaria Pettit RN)1759 (Given - Provider: Samaria Pettit RN)2200 (Given - Provider: Willa Foster) 0200 (Given - Provider: Willa Foster)0600 (Given - Provider: Willa Foster)0957 (Given - Provider: Samaria Pettit RN)1349 (Given - Provider: Samaria Pettit, NASEEM)1749 (Given - Provider: Samaria Pettit RN)2206 (Given - Provider: Velasquez Lucio) 0529 (Given - Provider: Velasquez Lucio) HYDROmorphone (Dilaudid) injection 1 mg 1 mg, Intravenous, Every 4 hours PRN, Starting on Tue11/02/24 at 0649, Until Tue11/02/24 at 0848, Routine, severe pain 1057 (Canceled Entry - Provider: Maurice Cardozo RN) HYDROmorphone (Dilaudid) injection 1 mg (CANCELED) 1 mg, Intravenous, Every 4 hours PRN, Starting on Tue11/02/24 at 0907, Until Tue11/02/24 at 1023, Routine, severe pain 0931 (Given - Provider: Maurice Cardozo, RN) methocarbamol (Robaxin) tablet 750 mg 750 mg, Oral, 4 times daily PRN, Starting on 10/20/24 at 0000, Until Tue11/02/24 at 1800, Routine, muscle spasms oxyCODONE (Roxicodone) immediate release tablet 40 mg 40 mg, Oral, Every 4 hours PRN, Starting on Tue10/28/24 at 1138, Until Tue11/02/24 at 1800, moderate pain 0002 (Given - Provider: Bridget Rodriguez RN)0437 (Given - Provider: Yojana Knight)0855 (Given - Provider: Samaria Pettit RN)1230 (Given - Provider: Samaria Pettit RN)1628 (Given - Provider: Samaria Pettit RN)2027 (Given - Provider: Willa Foster) 0033 (Given - Provider: Willa Foster)0434 (Given - Provider: Willa Foster)0817 (Given - Provider: Samaria Pettit RN)1221 (Given - Provider: Samaria Pettit RN)1543 (Given - Provider: Samaria Pettit RN)1936 (Given - Provider: Velasquez Lucio)2321 (Given - Provider: Velasquez Lucio) 0326 (Given - Provider: Velasquez Lucio)0748 (Given - Provider: Maurice Cardozo RN)1159 (Given - Provider: Maurice Cardozo, RN)1519 (Given - Provider: Maurice Cardozo, RN) polyethylene glycol (Miralax) packet 17 g 17 g, Oral, Daily PRN, Starting on 10/20/24 at 0000, Until Tue11/02/24 at 1800, Routine, constipation sodium chloride 0.9 % flush 10 mL(Linked Group 1) 10 mL, Intravenous, As needed, Starting on Tue10/19/24 at 2353, Until Tue11/02/24 at 1800, Routine, line care Linked Groups Order Group 1: Insert peripheral IV (CANCELED) Once, On Tue10/19/24 at 2354, For 1 occurrence And Saline lock IV (CANCELED) Once, On Tue10/19/24 at 2354, For 1 occurrence And sodium chloride 0.9 % flush 10 mLJump to med 10 mL, Intravenous, Every 12 hours, First dose on Tue10/20/24 at 0000, Until Discontinued, Routine And sodium chloride 0.9 % flush 10 mLJump to med 10 mL, Intravenous, As needed, Starting on Tue10/19/24 at 2353, Until Tue11/02/24 at 1800, Routine, line care documented in this encounter Additional Health Concerns Infection Onset Date Last Indicated Resolved Time MRSA Comment:Added from external infection. Source: [facility]. 11/14/2023 10/20/2024 ESBL Comment:Added from external infection. Source: [facility]. 11/26/2023 08/18/2024 MDRO 08/22/2024 08/22/2024 COVID-19 Rule-Out 10/20/2024 10/20/2024 10/20/2024 4:57 AM EDT Respiratory Rule-Out 10/20/2024 10/20/2024 025 6:03 AM EDT Assessment Noted Time PHQ-9 Depression Total Score: 0 09/01/19 25 12:42 PM EDT A fall risk assessment has been complete d for the patient 09/27/2024 2:07 PM EDT A Body Mass Index follow-up plan has been documented for the patient 11/02/2024 2:26 PM EDT documented as of this encounter Care Teams Inclusion Intern Relationship Specialty Start Date End Date Favian Sandy DO [address] [place] [address] [place] [address] PCP - General 07/05/24 Navya Man MD [address] [place] [id number] Consulting Physician Hematology 09/28/24 Cathleen Pena, LELE [facility] TCM Nurse 10/15/24 11/06/24 Phyllis Arango, RN CH-VASCULAR & INTERVENTIONAL RADIOLOGY Registered Nurse 10/22/24 10/22/24 documented as of this encounter
--- OUTSIDE RECORDS SUMMARY | 2024-12-10 10:00 | XMS_ITS | Encounter Summary ---
Author Organization Healthcare Address [address] [place] [address] Care Team Providers Care Acid Adjuster Name Role Phone Favian Sandy DO Primary Care Provider [phone] Navya Man MD Unavailable Encounter Details Date Type Department Care Team (Latest Contact Info) Description 12/10/2024 10:00 AM EDT Ancillary Procedure [facility] [address] [place] [id number] Chronic hepatitis C without hepatic coma Social History Tobacco Use Types Packs/Day Years [...] any time in the past 12 m [facility], were you homeless or living in a long-term (including now)? No 10/23/2024 CAGE ASSESSMENT Answer [...] drink first t geri in the morning (EYE-FIELD OBSERVER) to steady your nerves or to get rid of a hangover? 0 10/20/2024 CAGE Questionnaire Score 0 025 Utilities Answer Date Recorded In the past 12 months has th e electric, gas, oil, or water [employer] threatened to shut off services in your home? No 10/23/2024 Sex and Gender Information Value Date Recorded Sex Assigned at Male 03/16/2024 2:12 PM EST Legal Sex Male 7:40 PM EDT Gender Identity Not on file Sexual Orientation Not on file documented as of this encounter Plan of Treatment Upcoming Encounters Date Type Department Care Team (Late st Contact Info) Description 12/19/2024 8:00 AM EDT Office Visit [facility] V[facility] Interventional Radiology [address] [place] [address] 12/25/2024 1:30 PM EDT Appointment [facility] Interventional Radiology [address] [place] [address] documented as of this encounter Procedures Procedure Name Priority Date/Time Associated Diagnosis Comments GI FIBROSCAN Routine 12/10/2024 11:41 AM EDT Chronic hepatitis C without hepatic coma documented in this encounter Results * GI Fibroscan (12/10/2024 11:41 AM EDT) Narrative [facility] - 12/10/2024 12:29 PM EDT Table formatting from the original result was not included. GI FIBROSCAN INTERPRETATION Procedure: VCTE using M+ probe Indication: Chronic hepatitis C without hepatic coma (B18.2) Discussed: Oral and written explanations of the FibroScan VCTE test procedure provided to the patient. Procedure Note: Patient was placed in a supine position with right arm in maximum abduction to allow optimal exposure of right lateral abdomen. Patient was briefly assessed, identifying the terminus of the xyphoid process and locating an ideal transient elastography testing site, mid-line and lateral to this point. Patient was instructed to breathe normally and remain stationary during the test process. Pre-measurement data confirmed the transient elastography probe was centered over the liver parenchyma. A series of ten 50Hz mechanical pulses were applied with controlled application pressure to induce a mechanical shear wave in the liver tissue. For each measurement, the shear wave propagation speed was detected, displayed and converted to its equivalent liver stiffness value in kilopascals. Skin to liver capsule distance and shear wave characteristics were monitored during the entire examination to assure data quality. Median liver stiffness measurement and interquartile range were calculated and displayed in real time. Acquired measurement data was stored and submitted for my review and interpretation. Patient tolerated the procedure well and was discharged without incident. Findings: Patient had a median Liver Stiffness Score of 4.5 kilopascal (kPa). The Interquartile Range to median ratio was 6 %. Per Referring Provider recent history includes: Order Questions Answers Does patient have recent history of alcohol use? No Does patient have recent history of cholestasis? No Does patient have recent history of liver tumor? No Does patient have recent history of right heart failure? No Does patient have recent history of acute hepatitis? No Does patient have recent history of ALT > 100 U/L? No At the time of exam patient was NPO 3 hours or more, had no recent relevant alcohol and current scan is considered reliable. Interpretation: Taking into account the above mentioned diagnosis and history,the liver stiffness score is most consistent with F0-F1: No significant fibrosis. Please review indication and potential limitations of the Fibroscan for a more accurate assessment. Recommendations: Higher scores are associated with a higher specificity (low false positive rate) in predicting advanced fibrosis (>= F2) or cirrhosis (F4). Lower scores are associated with a higher specificity in ruling out advanced fibrosis (>= F2) or cirrhosis (F4). Please consider using serum marker panels (Fibrosure, FIB-4, APRI) as well as imaging criteria (e.g., signs of cirrhosis) and clinical data (e.g., physical exam findings of cirrhosis or decompensation) to improve the accuracy of fibrosis assessment especially in cases with intermediate liver stiffness results. Consider liver biopsy if results remain conflicting/unclear. us Diana BERRY IN CLINIC DIAGNOSTIC ORDERS Fin al Result [facility] documented in this encounter Visit Diagnoses Diagnosis Chronic hepatitis C without hepatic coma documented in this encounter Additional Health Concerns Infection Onset Date Last Indicated Resolved Time MRSA Comment:Added from external infection. Source: [facility]. 11/14/2023 10/20/2024 ESBL Comment:Added from external infection. Source: [facility]. 11/26/2023 08/18/2024 MDRO 08/22/2024 08/22/2024 Assessment Noted Time PHQ-9 Depression Total Score: 0 09/01/19 12:42 PM EDT A fall risk assessment has been complete d for the patient 09/27/2024 2:07 PM EDT A Body Mass Index follow-up plan has been documented for the patient 11/06/2024 9:20 AM EDT documented as of this encounter Care Teams Acid Adjuster Relationship Specialty Start Date End Date Favian Sandy DO [address] [place] [address] PCP - General 07/05/24 Navya Man MD [address] [address] Consulting Physician Hematology 09/28/24 documented as of this encounter
[2024-12-16] VITALS (7 sets, daily range): BP systolic 123–143; BP diastolic 96–113; PULSE 81–115; RESP 9–21; TEMP 37; O2SAT 96–100; BMI 25.8
--- NOTE | 2024-12-16 20:09 | XR_ITS ---
PROCEDURE INFORMATION: Exam: XR Chest Exam date and time: 12/16/2024 8:49 PM Age: 29 years old Clinical indication: Other: Chest pain TECHNIQUE: Imaging protocol: Radiologic exam of the chest. Views: 1 view. Total images: 1 COMPARISON: CT ANGIO CHEST PE PROTOCOL 06/15/2024 1:20 PM FINDINGS: Lungs: Lungs are clear and well expanded. No airspace consolidation, vascular congestion, or pulmonary edema. Pleural spaces: Unremarkable. No pleural effusion. No pneumothorax. Heart/Mediastinum: Densely calcified subcarinal and right perihilar lymph nodes. No cardiomegaly. No mediastinal widening or hilar enlargement. Bones/joints: Mild S-shaped thoracic scoliosis. Organs: Densely calcified spleen. IMPRESSION: No radiographically acute cardiopulmonary process.
--- NOTE | 2024-12-16 20:10 | ECG_ITS ---
APPROVED REPORT Exam: Resting ECG HR:115 bpm ECG Measurements Heart Rate 115 AXES [place] 120 P 71 QRSd 75 QRS 85 QT 328 T 46 QTc 396 Conclusion Sinus tachycardia without acute ST or T wave changes concerning for ischemia Electronically signed by : Ileana Louie, 12/17/2024 00:58:04
[2024-12-16 20:19] LABS: Coronavirus 19, PCR Not Detected (NotDetected); Influenza A, PCR Not Detected (NotDetected); Influenza B, PCR Not Detected (NotDetected)
--- OUTSIDE RECORDS SUMMARY | 2024-12-16 20:22 | XMS_ITS | Encounter Summary ---
Author Organization Healthcare Address [address] [place] [address] Care Team Providers Care Fire Behavior Analyst Name Role Phone DuFavian matamoros Primary Care Provider [phone] Navya Man MD Unavailable Cathleen Pena LPN Unavailable Unavailabl e Phyllis Arango RN Unavailable Unavailab le Reason for Visit * Reason Comments TCM Encounter Details Date Type Department Care Team (Late st Contact Info) Description 10/15/2024 Patient Outreach [facility] [address] [place] [address] Cathleen Pena LPN [facility] TCM Social History Tobacco Use Types Packs/Day Years [...] any time in the past 12 m [facility], were you homeless or living in a intermediate (including now)? No 10/23/2024 CAGE ASSESSMENT Answer [...] drink first t geri in the morning (EYE-JUICE WEIGHER) to steady your nerves or to get [...] on file documented as of this encounter Functional Status * Calculated C-SSRS [...] Behavior (Lifetime) No 7:48 AM EDT Maurice Cardozo RN documented as of this encounter Miscellaneous Notes * Progress Notes - Cathleen Pena LPN - 10/15/2024 11:42 AM EDT Admit Date: 10/04/2024 Discharge Date: 10/14/2024 Hospital Service: Hospital Medicine Discharge Diagnosis: Sickle cell crisis 10/15/2024 TCM call # 1 Patient Reached: Yes Outcome: Called patient for a TCM nurse call. Patient reports he is feeling okay. Patient denies any chest pain, back pain, arm and leg pain and SOA. Patient reports receiving his medications at discharge. Patient reports he is going to follow up with his PCP. Patient denies any [facility] needs. Patienthas no questions or concerns for this nurse at this time. Number provided for patient to call should he have any questions or concerns arise. Action: N/A Medication changes: per AVS Start taking Apixaban (Eliquis) 5 mg Take 1 tablet by mouth 2 times a day lidocaine (Lidoderm) e 5 % patch Apply 2 patches topically 1 (one) time each day at the same time over 12 hours. Remove &discard patch within 12 hours or as directed by MD. oxycodone (Roxicodone) 5 mg Take 2 tablets by mouth every 4 hours as needed for moderate pain or severe pain. Stop taking enoxaparin 80 MG/0.8 ML solution prefilled syringe (Lovenox) [facility] appointment: Following with Hematology and GI and PCP Items to address at [facility]: N/A documented in this encounter Plan of Treatment Upcoming Encounters Date Type Department Care Team (Late st Contact Info) Description 12/19/2024 8:00 AM EDT Office Visit [facility] Vascular Interventional Radiology [address] [facility] [address] [place] [address] 12/25/2024 1:30 PM EDT Appointment [facility] Interventional Radiology [address] [place] [address] documented as of this encounter Visit Diagnoses Not on filedocumented in this encounter Additional Health Concerns Infection Onset Date Last Indicated Resolved Time MRSA Comment:Added from external infection. Source: [facility]. 11/14/2023 10/20/2024 ESBL Comment:Added from external infection. Source: [facility]. 11/26/2023 08/18/2024 MDRO 08/22/2024 08/22/2024 COVID-19 Rule-Out 10/20/2024 10/20/2024 10/20/2024 4:57 AM EDT Respiratory Rule-Out 10/20/2024 10/20/2024 025 6:03 AM EDT Assessment Noted Time PHQ-9 Depression Total Score: 0 09/01/19 25 12:42 PM EDT A fall risk assessment has been complete d for the patient 09/27/2024 2:07 PM EDT A Body Mass Index follow-up plan has been documented for the patient 10/14/2024 1:30 PM EDT documented as of this encounter Care Teams Fire Behavior Analyst Relationship Specialty Start Date End Date Favian Sandy DO [address] [facility] [address] [place] [address] PCP - General 07/05/24 Navya Man MD [address] [phone] Consulting Physician Hematology 09/28/24 Cathleen Pena LPN [facility] TCM Nurse 10/15/24 11/06/24 Phyllis Arango, RN CH-VASCULAR & INTERVENTIONAL RADIOLOGY Registered Nurse 10/22/24 10/22/24 documented as of this encounter
--- OUTSIDE RECORDS SUMMARY | 2024-12-16 20:22 | XMS_ITS | Encounter Summary ---
Author Organization Healthcare Address [address] [place] [address] Care Team Providers Care Track Service Person Name Role Phone DuFavian Wilfrido SIU Primary Care Provider [phone] Navya Man MD Unavailable Cathleen Pena LPN Unavailable Unavailabl e Encounter Details Date Type Department Care Team (Latest Contact Info) Description 10/19/2024 Travel Social History Tobacco Use Types Packs/Day Years [...] afraid of your partner or ex-partner? No 10/05/2024 Within the last year, have y ou been humiliated or emotionally abused in other ways by your partner or ex-partner? No Within the last year, have y ou been kicked, hit, slapped, or otherwise physically hurt by your partner or ex-partner? No 10/05/2024 Within the last year, have y ou been raped or forced to have any kind of sexual activity by your partner or ex-partner? No 10/05/2024 Overall Financial Resource Strain (CARDIA) Answe r Date Recorded How hard is it for you to pa y for the very basics like food, housing, medical care, and heating? Not very hard 10/05/2024 Hunger Vital Sign Answer Date Recorded Within the past 12 months, y ou worried that your food would run out before you got the money to buy more. Never true 10/06/19 25 Within the past 12 months, t he food you bought just didn't last and you didn't have money to get more. Never true 10/05/2024 PRAPARE - Transportation Answer Date Re corded In the past 12 months, has l ack of transportation kept you from medical appointments or from getting medications? No 03/2024 In the past 12 months, has l ack of transportation kept you from meetings, work, or from getting things needed for daily living? No 10/05/2024 Housing Stability Vital Sign Answer Sourav e Recorded In the last 12 months, was t here a time when you were not able to pay the mortgage or rent on time? No 10/05/2024 In the past 12 months, how m any times have you moved where you were living? 0 10/05/2024 At any time in the past 12 m [facility], were you homeless or living in a penitentiary (including now)? No 10/05/2024 CAGE ASSESSMENT Answer Date Recorded Cage unable [...] drink first t geri in the morning (EYE-CLINICAL FACULTY) to steady your nerves or to get rid of a hangover? 0 10/20/2024 CAGE Questionnaire Score 0 025 Utilities Answer Date Recorded In the past 12 months has th e electric, gas, oil, or water company threatened to shut off services in your home? No 10/05/2024 Sex and Gender Information Value Date Recorded Sex Assigned at Male 03/16/2024 2:12 PM EST Legal Sex Male 7:40 PM EDT Gender Identity Not on file Sexual Orientation Not on file documented as of this encounter Functional Status * Calculated C-SSRS Risk Score (Lifetime/Recent) Answer Date of Assessment Author No Risk Indicated 10/19/2024 6:07 PM EDT Tami Godinez RN * Question Answer Date of Assessment Author 1. Wish to be (Past 1 Month) No 025 6:07 PM EDT Tami Godinez RN 2. Non-Specific Active Suici mini Thoughts (Past 1 Month) No 10/19/2024 6:07 PM EDT Esperanza Godinez RN 6. Suicidal Behavior (Lifetime) No 6:07 PM EDT Tami Godinez RN documented as of this encounter Plan of Treatment Upcoming Encounters Date Type Department Care Team (Late st Contact Info) Description 12/19/2024 8:00 AM EDT Office Visit [facility] Vascular Interventional Radiology [address] [place] [address] 12/25/2024 1:30 PM EDT Appointment [facility] Interventional Radiology [address] [place] [address] documented as of this encounter Visit Diagnoses Not on filedocumented in this encounter Additional Health Concerns Infection Onset Date Last Indicated Resolved Time MRSA Comment:Added from external infection. [facility] 11/14/2023 10/20/2024 ESBL Comment:Added from external infection. Source: [facility]. 11/26/2023 08/18/2024 MDRO 08/22/2024 08/22/2024 Assessment Noted Time PHQ-9 Depression Total Score: 0 09/01/19 25 12:42 PM EDT A fall risk assessment has been complete d for the patient 09/27/2024 2:07 PM EDT A Body Mass Index follow-up plan has been documented for the patient 11/02/2024 2:26 PM EDT documented as of this encounter Care Teams Track Service Person Relationship Specialty Start Date End Date Favian Sandy, DO [address] [place] [address] [place] [address] PCP - General 07/05/24 Navya Man MD [address] [address] Consulting Physician Hematology 09/28/24 Cathleen Pena, LELE [facility] TCM Nurse 10/15/24 11/06/24 documented as of this encounter
--- OUTSIDE RECORDS SUMMARY | 2024-12-16 20:22 | XMS_ITS | Encounter Summary ---
Author Organization [facility] Address [address] [place] [address] Care Team Providers Care Security Alarm Technician Name Role Phone DuFavian matamoros Primary Care Provider [phone] Navya Man MD Unavailable Cathleen Pena LPN Unavailable Unavailabl Phyllis Chahal RN Unavailable Unavailab le Reason for Visit * Auth/Cert (Routine) Specialty Diagnoses / Procedures Referred By Contpenny t Referred To Contact Diagnoses Sickle cell pain crisis (CMS/HCC) Blood transfusion reaction, initial encounter Lazaro Cortez MD [address] [place] [address] Phone: tel: fax: [facility] Inpatient [address] [place] [address] Referral ID Status Reason Start Date Expiration Date Visits Re quested Visits Authorized [id number] 1 1 Encounter Details Date Type Department Care Team (Late st Contact Info) Description 10/19/2024 Lab Requisition [facility] [address] [place] [address] Sundeep Jaquez MD [address] [place] [address] Encounter for general adult medical examination without abnormal findings Social History Tobacco Use Types Packs/Day Years [...] any time in the past 12 m [facility], were you homeless or living in a retirement (including now)? No 10/23/2024 CAGE ASSESSMENT Answer [...] drink first t geri in the morning (EYE-PROPOSAL REP) to steady your nerves or to get rid of a hangover? 0 10/20/2024 CAGE Questionnaire Score 0 025 Utilities Answer Date Recorded In the past 12 months has th e [employer], gas, oil, or water company threatened to [...] Date of Assessment Author No Risk Indicated 10/22/2024 8:00 PM EDT Yojana Knight * Question Answer Date of Assessment Author 1. Wish to be (Past 1 Month) No 025 8:00 PM EDT Yojana Knight 2. Non-Specific Active Suici mini Thoughts (Past 1 Month) No 10/22/2024 8:00 PM EDT Shonna Knight 6. Suicidal Behavior (Lifetime) No 8:00 PM EDT Yojana Knight documented as of this encounter Plan of Treatment Upcoming Encounters Date Type Department Care Team (Late st Contact Info) Description 12/19/2024 8:00 AM EDT Office Visit [facility] Vascular Interventional Radiology [address] [place] [address] 12/25/2024 1:30 PM EDT Appointment [facility] Interventional Radiology [address] [place] [address] documented as of this encounter Procedures Procedure Name Priority Date/Time Associated Diagnosis Comments TRANSFUSION REACTION CULTURE AND GRAM STAIN Routine 10/19/2024 6:08 PM EDT Encounter for general adult medical examination without abnormal findings documented in this encounter Results * Transfusion Reaction Culture and Gram Stain (10/19/2024 6:08 PM EDT) Culture No growth at day 7 2024 10:42 AM EDT [facility] Gram Stain Result No polymorphonuclear leukocytes seen 10/28/2024 10:42 AM EDT [facility] Gram Stain Result No organisms seen 10/28/2024 10:42 AM EDT [facility] Transfusion Bag Blood transfusion reaction / Unknown 10/19/2024 6:08 PM EDT 10/19/2024 6:08 PM EDT us Sundeep Jaquez MD LAB MICROBIOLOGY - GENERAL ORDERABLES Final Result [facility] [address] [place] [address] documented in this encounter Visit Diagnoses Diagnosis Encounter for general adult medical examination without abnormal findings documented in this encounter Additional Health Concerns Infection Onset Date Last Indicated Resolved Time MRSA Comment:Added from external infection. Source: [facility]. 11/14/2023 10/20/2024 ESBL Comment:Added from external infection. Source: [facility]. 11/26/2023 08/18/2024 MDRO 08/22/2024 08/22/2024 COVID-19 Rule-Out [...] documented as of this encounter Care Teams Security Alarm Technician Relationship Specialty Start Date End Date Favian Sandy DO [address] [place] [address] [place] [address] PCP - General 07/05/24 Navya Man MD [address] [place] [address] Consulting Physician Hematology 09/28/24 Cathleen Pena, APPLE PRESS OPERATOR [facility] TCM Nurse 10/15/24 11/06/24 Phyllis Arango, RN CH-VASCULAR & INTERVENTIONAL RADIOLOGY Registered Nurse 10/22/24 10/22/24 documented as of this encounter
--- OUTSIDE RECORDS SUMMARY | 2024-12-16 20:22 | XMS_ITS | Encounter Summary ---
Author Organization Healthcare Address [address] [place] [address] Care Team Providers Care Bag Inspector Name Role Phone DuFavian matamoros Primary Care Provider [phone] Navya Man MD Unavailable Cathleen Pena LPN Unavailable Unavailabl e Phyllis Arango RN Unavailable Unavailab le Encounter Details Date Type Department Care Team (Late st Contact Info) Description 10/05/2024 Results Follow-Up [facility] [address] [place] [address] Diana Alonzo, PA [address] [place] [address] Social History Tobacco Use Types Packs/Day Years [...] any time in the past 12 m [facility], were you homeless or living in a prison (including now)? No 10/23/2024 CAGE ASSESSMENT Answer [...] drink first t geri in the morning (EYE-DEPOSITION REPORTER) to steady your nerves or to get [...] Date of Assessment Author No Risk Indicated 10/30/2024 8:00 PM EDT Yojana Knight * Question Answer Date of Assessment Author 1. Wish to be (Past 1 Month) No 025 8:00 PM EDT Yojana Knight 2. Non-Specific Active Suici mini Thoughts (Past 1 Month) No 10/30/2024 8:00 PM EDT Shonna Knight 6. Suicidal Behavior (Lifetime) No 8:00 PM EDT Yojana Knight documented as of this encounter Plan of Treatment Upcoming Encounters Date Type Department Care Team (Late st Contact Info) Description 12/19/2024 8:00 AM EDT Office Visit [facility] Vascular Interventional Radiology [address] [facility] [address] [place] [address] 12/25/2024 1:30 PM EDT Appointment [facility] Interventional Radiology [address] [place] [address] documented as of this encounter Visit Diagnoses Not on filedocumented in this encounter Additional Health Concerns Infection Onset Date Last Indicated Resolved Time MRSA Comment:Added from external infection. Source: [facility]. 11/14/2023 10/20/2024 ESBL Comment:Added from external infection. Source: [facility]. 11/26/2023 08/18/2024 MDRO 08/22/2024 08/22/2024 COVID-19 [...] documented as of this encounter Care Teams Bag Inspector Relationship Specialty Start Date End Date Favian Sandy DO [address] [place] [address] [place] [address] PCP - General 07/05/24 Navya Man MD [address] [address] Consulting Physician Hematology 09/28/24 Cathleen Pena, TUBE WINDER [facility] TCM Nurse 10/15/24 11/06/24 Phyllis Arango, RN CH-VASCULAR & INTERVENTIONAL RADIOLOGY Registered Nurse 10/22/24 10/22/24 documented as of this encounter
--- OUTSIDE RECORDS SUMMARY | 2024-12-16 20:22 | XMS_ITS | Encounter Summary ---
Author Organization [facility] Address [address] 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 No 10/05/2024 CAGE ASSESSMENT Answer Date Recorded Cage unable to access Not on file 08/03/2024 Cage max number of drinks Not on file 2024 Cage Beverages a week Not on file 08/03/2024 Have you ever felt you should CUT down on your d rinking? 0 08/03/2024 Have you been ANNOYED by people criticizing your drinking? 0 08/03/2024 Have you felt GUILTY about your drinking? 0 08/03/2024 Have you had a drink first t geri in the morning (EYE-CAB STATION ATTENDANT) to steady your nerves or to get rid of a hangover? 0 08/03/2024 CAGE Questionnaire Score 0 025 Utilities Answer [...] Date of Assessment Author No Risk Indicated 10/12/2024 8:00 AM EDT Gillian Sellers * Question Answer Date of Assessment Author 1. Wish to be (Past 1 Month) No 025 8:00 AM EDT Gillian Sellers 2. Non-Specific Active Suici mini Thoughts (Past 1 Month) No 10/12/2024 8:00 AM EDT Roxanna Sellers sa 6. Suicidal Behavior (Lifetime) No 8:00 AM EDT Gillian Sellers documented as of this encounter Plan of Treatment Upcoming Encounters Date Type Department Care Team (Late st Contact Info) Description 12/19/2024 8:00 AM EDT Office Visit [facility] V[facility] Interventional Radiology [address] [facility] [address] [place] [address] 12/25/2024 1:30 PM EDT Appointment [facility] Interventional Radiology [address] [place] [address] Scheduled Orders Name Type Priority Associated Diagnoses Orde r Schedule RBC Exchange Dialysis Routine Once for 1 O ccurrences starting 10/11/2024 until 10/11/2024 documented as of this encounter Visit Diagnoses Diagnosis 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 documented in this encounter Administered Medications Active Administered Medications - up to 3 most recent administrations Medication Order MAR Action Action Date Dose Rate Site acetaminophen (Tylenol) tablet 650 mg 650 mg, Oral, Once as needed, 1 dose, Starting on [place] 8/7/25 at 1845, Until Discontinued, Routine, For febrile reaction alteplase (Cathflo Activase) injection 2 mg 2 mg, Intracatheter, As needed, 2 doses, Starting on Tue10/11/24 at 1838, Until Discontinued, Routine, line care calcium carbonate (Tums) chewable tablet 2,000 mg 2,000 mg, Oral, 4 times daily PRN, Starting on Tue10/11/24 at 1838, Until Discontinued, Routine, indigestion, heartburn, For intraprocedure mild symptomatic hypocalcemia diphenhydrAMINE (Benadryl) injection 50 mg 50 mg, Intravenous, Once as needed, 1 dose, Starting on Tue10/11/24 at 1838, Until Discontinued, STAT, itching, For flushing, rash, fever, shortness of breath during infusion diphenhydrAMINE (Benadryl) tablet 25 mg 25 mg, Oral, Once as needed, 1 dose, Starting on Tue10/11/24 at 1845, Until Discontinued, Routine, For patients with recurrent mild allergic reactions diphenhydrAMINE (Benadryl) tablet 50 mg 50 mg, Oral, Once as needed, 1 dose, Starting on Tue10/11/24 at 1845, Until Discontinued, Routine, For patients with recurrent mild allergic reactions EPINEPHrine (Adrenalin) 1 MG/ML injection 0.1 mg 0.1 mg, Intravenous, Once as needed, 1 dose, Starting on Tue10/11/24 at 1838, Until Discontinued, STAT, For signs or symptoms of anaphylaxis with infusion EPINEPHrine (Adrenalin) 1 MG/ML injection 0.3 mg 0.3 mg, Intramuscular, Once as needed, 1 dose, Starting on Tue10/11/24 at 1838, Until Discontinued, STAT, For signs or symptoms of anaphylaxis with infusion famotidine (Pepcid) tablet 20 mg 20 mg, Oral, Daily PRN, Starting on Tue10/11/24 at 1838, Until Discontinued, Routine, indigestion, heartburn, upset stomach famotidine PF (Pepcid) injection 20 mg 20 mg, Intravenous, Once as needed, 1 dose, Starting on Tue10/11/24 at 1838, Until Discontinued, STAT, For flushing, rash, fever, shortness of breath during infusion ondansetron (Zofran) tablet 8 mg 8 mg, Oral, Every 8 hours PRN, Starting on [place] 10/11/24 at 1838, Until Discontinued, Routine, nausea, vomiting sodium citrate anticoagulant 4 % flush 3 mL 3 mL, Intracatheter, As needed, Starting on [place] 10/11/24 at 1845, Until Discontinued, Routine, line care documented in this encounter Additional Health Concerns Infection Onset Date Last Indicated Resolved Time MRSA Comment:Added from external infection. Source: [facility]. 11/14/2023 10/20/2024 ESBL Comment:Added from external infection. Source: [facility]. 11/26/2023 08/18/2024 MDRO 08/22/2024 08/22/2024 COVID-19 [...] documented as of this encounter Care Teams Securities Attorney Relationship Specialty Start Date End Date Favian Sandy DO [address] [place] [address] [place] [address] PCP - General 07/05/24 Navya Man MD [address] [place] [address] Consulting Physician Hematology 09/28/24 Cathleen Pena LPN [facility] TCM Nurse 10/15/24 11/06/24 Phyllis Arango, RN CH-VASCULAR & INTERVENTIONAL RADIOLOGY Registered Nurse 10/22/24 10/22/24 documented as of this encounter
--- OUTSIDE RECORDS SUMMARY | 2024-12-16 20:22 | XMS_ITS ---
Author Organization [facility] Address [address] [place] [address] Care Team Providers Care Radiologic Tech Name Role Phone Favian Sandy DO Primary Care Provider [phone] Navya Man MD Unavailable Transitional Care Management Status:Closed (Closed) Start date:10/15/2024 Enrollment date:10/15/2024 Enrollment reason:Identified using hospital discharge data End date:11/06/2024 Close reason:Patient Readmitted Overview This episode type is for outpatient care managers enrolling patients in the [facility] Transitional Care Management program. Continued Care and Services Coordination
--- OUTSIDE RECORDS SUMMARY | 2024-12-16 20:22 | XMS_ITS ---
Author Organization [facility] Address [address] [place] [address] Care Team Providers Care Acupuncture Physician Name Role Phone Favian Sandy DO Primary Care Provider Navya Man MD Unavailable Hepatitis C Program Status:Active (Active) Start date:01/22/2024 Enrollment date:01/22/2024 Enrollment reason:HCV Continued Care and Services Coordination
--- OUTSIDE RECORDS SUMMARY | 2024-12-16 20:22 | XMS_ITS ---
Author Organization [facility] Address [address] [place] [address] Care Team Providers Care Real Estate Specialist Name Role Phone Favian Sandy DO Primary Care Provider [phone] Navya Man MD Unavailable LINK Program Status:Ineligible (Closed) Start date:10/22/2024 End date:10/22/2024 Close reason:Not Eligible Overview Patient identified for LINK program. Following chart review, patient determined to be ineligible based on program criteria. (Sickel Cell) Continued Care and Services Coordination
--- OUTSIDE RECORDS SUMMARY | 2024-12-16 20:23 | XMS_ITS | Clinical Summary ---
Author Organization [facility] Address [address] [place] [address] Phone Care Team Providers Care Chairman & Chief Executive Officer Name Role Phone Unavailable Unavailable Conditions or Problems No information available. Medications No information available. Medications Administered No information available. Allergies, Adverse Reactions, Alerts No information available. Results No information available. Plan of Care No information available. Procedures No information available. Vital Signs No information available. Immunizations No information available. Advance Directives No information available.
--- OUTSIDE RECORDS SUMMARY | 2024-12-16 20:24 | XMS_ITS | Encounter Summary ---
Author Organization Healthcare Address [address] [place] [address] Care Team Providers Care Zig Zag Spring Machine Operator Name Role Phone DuFavian matamoros Wilfrido SIU Primary Care Provider [phone] Navya Man MD Unavailable Reason for Visit * Reason Onset Date Comments Med Refill 11/08/2024 Encounter Details Date Type Department Care Team (Late st Contact Info) Description 11/08/2024 Refill [facility] Internal Medicine [address] [place] [place] [address] Saw Solano MD [address] [place] [address] Social History Tobacco Use Types Packs/Day Years [...] any time in the past 12 m [facility], were you homeless or living in a alf (including now)? No 10/23/2024 CAGE ASSESSMENT Answer [...] drink first t geri in the morning (EYE-REMITTANCE CLERK) to steady your nerves or to get [...] Description 12/19/2024 8:00 AM EDT Office Visit [facility] Vascular Interventional Radiology [address] [facility] [address] [place] [address] 12/25/2024 1:30 PM EDT Appointment [facility] Interventional Radiology [address] [place] [address] documented as of this encounter Visit Diagnoses Not on filedocumented in this encounter Additional Health Concerns Infection Onset Date Last Indicated Resolved Time MRSA Comment:Added from external infection. Source: [facility]. 11/14/2023 10/20/2024 ESBL Comment:Added from external infection. Source: [facility]. 11/26/2023 08/18/2024 MDRO 08/22/2024 08/22/2024 Assessment Noted Time PHQ-9 Depression Total Score: 0 09/01/19 25 12:42 PM EDT A fall risk assessment has been complete d for the patient 09/27/2024 2:07 PM EDT A Body Mass Index follow-up plan has been documented for the patient 11/06/2024 9:20 AM EDT documented as of this encounter Care Teams Zig Zag Spring Machine Operator Relationship Specialty Start Date End Date Favian Sandy DO [address] [place] [address] [place] [address] PCP - General 07/05/24 Navya Man MD [address] [place] [address] Consulting Physician Hematology 09/28/24 documented as of this encounter
--- OUTSIDE RECORDS SUMMARY | 2024-12-16 20:24 | XMS_ITS | Encounter Summary ---
Author Organization Healthcare Address [address] [place] [address] Care Team Providers Care Ethics Officer Name Role Phone DuFavian matamoros Wilfrido [facility] Primary Care Provider [phone] Navya Man MD Unavailable Reason for Visit * Reason Onset Date Comments Med Refill 11/08/2024 Encounter Details Date Type Department Care Team (Late st Contact Info) Description 11/08/2024 Refill [facility] [address] [place] [phone] Parth Fitzgerald MD [address] [place] [address] Social History Tobacco Use Types Packs/Day Years [...] any time in the past 12 m [facility], were you homeless or living in a [place] [facility] [place] (including now)? No 10/23/2024 CAGE ASSESSMENT Answer [...] drink first t geri in the morning (EYE-METAL WINDOW SCREEN ASSEMBLER) to steady your nerves or to get [...] Description 12/19/2024 8:00 AM EDT Office Visit [facility] Vascular Interventional Radiology [address] [facility] [address] [place] [address] 12/25/2024 1:30 PM EDT Appointment [facility] A Interventional Radiology [address] [place] [address] documented as of this encounter Visit Diagnoses Not on filedocumented in this encounter Additional Health Concerns Infection Onset Date Last Indicated Resolved Time MRSA Comment:Added from external infection. Source: [facility]. 11/14/2023 10/20/2024 ESBL Comment:Added from external infection. Source: [facility]. 11/26/2023 08/18/2024 MDRO 08/22/2024 08/22/2024 Assessment Noted Time PHQ-9 Depression Total Score: 0 09/01/19 25 12:42 PM EDT A fall risk assessment has been complete d for the patient 09/27/2024 2:07 PM EDT A Body Mass Index follow-up plan has been documented for the patient 11/06/2024 9:20 AM EDT documented as of this encounter Care Teams Ethics Officer Relationship Specialty Start Date End Date Favian Sandy DO [address] [facility] [address] [place] [address] PCP - General 07/05/24 Navya Man MD [address] [place] [phone] Consulting Physician Hematology 09/28/24 documented as of this encounter
--- OUTSIDE RECORDS SUMMARY | 2024-12-16 20:24 | XMS_ITS | Encounter Summary ---
Author Organization Healthcare Address [address] [place] [address] Care Team Providers Care Car Construction Superintendent Name Role Phone DuFavian Wilfrido SIU Primary Care Provider [phone] Navya Man MD Unavailable Cathleen Pena LPN Unavailable Unavailabl e Encounter Details Date Type Department Care Team (Latest Contact Info) Description 10/24/2024 Travel Social History Tobacco Use Types Packs/Day [...] any time in the past 12 m [facility], were you homeless or living in [...] drink first t geri in the morning (EYE-HUC) to steady your nerves or to get [...] Date of Assessment Author No Risk Indicated 10/24/2024 8:00 PM EDT Yojana Knight * Question Answer Date of Assessment Author 1. Wish to be (Past 1 Month) No 025 8:00 PM EDT Yojana Knight 2. Non-Specific Active Suici mini Thoughts (Past 1 Month) No 10/24/2024 8:00 PM EDT Shonna Knight 6. Suicidal Behavior (Lifetime) No 8:00 PM EDT Yojana Knight documented as of this encounter Plan of Treatment Upcoming Encounters Date Type Department Care Team (Late st Contact Info) Description 12/19/2024 8:00 AM EDT Office Visit [facility] Vascular Interventional Radiology [address] [facility] [address] [place] [address] 12/25/2024 1:30 PM EDT Appointment [facility] A Interventional Radiology [address] [place] [address] documented as of this encounter Visit Diagnoses Not on filedocumented in this encounter Additional Health Concerns Infection Onset Date Last Indicated Resolved Time MRSA Comment:Added from external infection. Source: [facility]. 11/14/2023 10/20/2024 ESBL Comment:Added from external infection. Source: [facility]. 11/26/2023 08/18/2024 MDRO 08/22/2024 08/22/2024 Assessment Noted Time PHQ-9 Depression Total Score: 0 09/01/19 25 12:42 PM EDT A fall risk assessment has been complete d for the patient 09/27/2024 2:07 PM EDT A Body Mass Index follow-up plan has been documented for the patient 11/02/2024 2:26 PM EDT documented as of this encounter Care Teams Car Construction Superintendent Relationship Specialty Start Date End Date Favian Sandy DO [address] [facility] [address] [place] [address] PCP - General 07/05/24 Navya Man MD [address] [phone] Consulting Physician Hematology 09/28/24 Cathleen Pena LPN [facility] TCM Nurse 10/15/24 11/06/24 documented as of this encounter
--- OUTSIDE RECORDS SUMMARY | 2024-12-16 20:24 | XMS_ITS | Encounter Summary ---
Author Organization Healthcare Address [address] [place] [address] Care Team Providers Care Side Sawyer Name Role Phone DuFavian Wilfrido SIU Primary Care Provider [phone] Navya Man MD Unavailable Cathleen Pena LPN Unavailable Unavailabl e Encounter Details Date Type Department Care Team (Late st Contact Info) Description 11/06/2024 Clinical Support [facility] [address] [place] [address] Jen Kraft, PharmD [address] [facility] [address] [place] [address] Social History Tobacco Use Types Packs/Day Years [...] any time in the past 12 m [facility], were you homeless or living in a [facility] (including now)? No 10/23/2024 CAGE ASSESSMENT Answer [...] drink first t geri in the morning (EYE-PAD EXTRACTOR TENDER) to steady your nerves or to get [...] Description 12/19/2024 8:00 AM EDT Office Visit [facility] Vascular Interventional Radiology [address] [facility] [address] [place] [address] 12/25/2024 1:30 PM EDT Appointment [facility] A Interventional Radiology [address] [place] [address] documented as of this encounter Visit Diagnoses Not on filedocumented in this encounter Additional Health Concerns Infection Onset Date Last Indicated Resolved Time MRSA Comment:Added from external infection. Source: [facility]. 11/14/2023 10/20/2024 ESBL Comment:Added from external infection. Source: [facility]. 11/26/2023 08/18/2024 MDRO 08/22/2024 08/22/2024 Assessment Noted Time PHQ-9 Depression Total Score: 0 09/01/19 25 12:42 PM EDT A fall risk assessment has been complete d for the patient 09/27/2024 2:07 PM EDT A Body Mass Index follow-up plan has been documented for the patient 11/06/2024 9:20 AM EDT documented as of this encounter Care Teams Side Sawyer Relationship Specialty Start Date End Date Favian Sandy DO [address] [place] [address] [place] [address] PCP - General 07/05/24 Navya Man MD [address] [phone] Consulting Physician Hematology 09/28/24 Cathleen Pena LPN [facility] TCM Nurse 10/15/24 11/06/24 documented as of this encounter
--- OUTSIDE RECORDS SUMMARY | 2024-12-16 20:24 | XMS_ITS | Encounter Summary ---
Author Organization [facility] Address [address] [place] [address] Care Team Providers Care Bale Tie Machine Operator Name Role Phone DuFavian Wilfrido SIU Primary Care Provider [phone] Navya Man MD Unavailable Encounter Details Date Type Department Care Team (Late st Contact Info) Description 11/14/2024 External Documentati on Encounter [facility] [address] [place] [phone] Tala Maddox, RN [facility] Social History Tobacco Use Types Packs/Day Years [...] time in the past 12 m [facility], were you homeless or living [...] drink first t geri in the morning (EYE-HOTEL MAINTENANCE ENGINEER) to steady your nerves or to get [...] Description 12/19/2024 8:00 AM EDT Office Visit [facility] Inter[facility] Radiology [address] [facility] [address] [place] [address] 12/25/2024 1:30 PM EDT Appointment [facility] A Interventional Radiology [address] [place] [address] documented as of this encounter Visit Diagnoses Not on filedocumented in this encounter Additional Health Concerns Infection Onset Date Last Indicated Resolved Time MRSA Comment:Added from external infection. Source: [facility]. 11/14/2023 10/20/2024 ESBL Comment:Added from external infection. Source: [facility]. 11/26/2023 08/18/2024 MDRO 08/22/2024 08/22/2024 Assessment Noted Time PHQ-9 Depression Total Score: 0 09/01/19 12:42 PM EDT A fall risk assessment has been complete d for the patient 09/27/2024 2:07 PM EDT A Body Mass Index follow-up plan has been documented for the patient 11/06/2024 9:20 AM EDT documented as of this encounter Care Teams Bale Tie Machine Operator Relationship Specialty Start Date End Date Favian Sandy DO [address] [place] [address] PCP - General 07/05/24 Navya Man MD [address] [place] [phone] Consulting Physician Hematology 09/28/24 documented as of this encounter
--- OUTSIDE RECORDS SUMMARY | 2024-12-16 20:25 | XMS_ITS | Encounter Summary ---
Author Organization Healthcare Address [address] [place] [address] Care Team Providers Care Sap Treasury Consultant Name Role Phone Favian Sandy DO Primary Care Provider [phone] Navya Man MD Unavailable Encounter Details Date Type Department Care Team (Latest Contact Info) Description 12/09/2024 Travel Social History Tobacco Use Types Packs/Day [...] time in the past 12 m [facility], were you homeless or living in a [facility] (including now)? No 10/23/2024 CAGE ASSESSMENT Answer [...] drink first t geri in the morning (EYE-SCHEME TECHNICIAN) to steady your nerves or to get [...] 12/19/2024 8:00 AM EDT Office Visit [facility] Vascular Interventional Radiology [address] [place] [address] 12/25/2024 1:30 PM EDT Appointment [facility] A Interventional Radiology [address] [place] [address] documented as of this encounter Visit Diagnoses Not on filedocumented in this encounter Additional Health Concerns Infection Onset Date Last Indicated Resolved Time MRSA Comment:Added from external infection. Source: [facility]. 11/14/2023 10/20/2024 ESBL Comment:Added from external infection. Source: [facility]. 11/26/2023 08/18/2024 MDRO 08/22/2024 08/22/2024 Assessment Noted Time PHQ-9 Depression Total Score: 0 09/01/19 12:42 PM EDT A fall risk assessment has been complete d for the patient 09/27/2024 2:07 PM EDT A Body Mass Index follow-up plan has been documented for the patient 11/06/2024 9:20 AM EDT documented as of this encounter Care Teams Sap Treasury Consultant Relationship Specialty Start Date End Date Favian Sandy DO [address] [place] [address] PCP - General 07/05/24 Navya Man MD [address] [place] [phone] Consulting Physician Hematology 09/28/24 documented as of this encounter
--- OUTSIDE RECORDS SUMMARY | 2024-12-16 20:25 | XMS_ITS | Encounter Summary ---
Author Organization Healthcare Address [address] [place] [address] Care Team Providers Care Embroidery Assistant Name Role Phone DuFavian Wilfrido [facility]U Primary Care Provider Navya Man MD Unavailable Cathleen Pena LPN Unavailable Unavailabl e Encounter Details Date Type Department Care Team (Latest Contact Info) Description 10/21/2024 Travel Social History Tobacco Use Types Packs/Day [...] any time in the past 12 m [facility], were you homeless or living in a [facility] (including now)? No 10/05/2024 CAGE ASSESSMENT Answer [...] drink first t geri in the morning (EYE-PROMOTIONS EXECUTIVE) to steady your nerves or to get [...] Date of Assessment Author No Risk Indicated 10/21/2024 7:00 PM EDT Sanjuana Cooper * Question Answer Date of Assessment Author 1. Wish to be (Past 1 Month) No 025 7:00 PM EDT Sanjuana Cooper 2. Non-Specific Active Suici mini Thoughts (Past 1 Month) No 10/21/2024 7:00 PM EDT Sanjuana Cooper 6. Suicidal Behavior (Lifetime) No 7:00 PM EDT Sanjuana Cooper documented as of this encounter Plan of Treatment Upcoming Encounters Date Type Department Care Team (Late st Contact Info) Description 12/19/2024 8:00 AM EDT Office Visit [facility] Vascular Interventional Radiology [address] [facility] [address] [place] [address] 12/25/2024 1:30 PM EDT Appointment [facility] A Interventional Radiology [address] [place] [address] documented as of this encounter Visit Diagnoses Not on filedocumented in this encounter Additional Health Concerns Infection Onset Date Last Indicated Resolved Time MRSA Comment:Added from external infection. Source: [facility]. 11/14/2023 10/20/2024 ESBL Comment:Added from external infection. Source: [facility]. 11/26/2023 08/18/2024 MDRO 08/22/2024 08/22/2024 Assessment Noted Time PHQ-9 Depression Total Score: 0 09/01/19 25 12:42 PM EDT A fall risk assessment has been complete d for the patient 09/27/2024 2:07 PM EDT A Body Mass Index follow-up plan has been documented for the patient 11/02/2024 2:26 PM EDT documented as of this encounter Care Teams Embroidery Assistant Relationship Specialty Start Date End Date Favian Sandy, [address] [facility] [address] [place] [address] PCP - General 07/05/24 Navya Man MD [address] [address] Consulting Physician Hematology 09/28/24 Cathleen Pena LPN [facility] TCM Nurse 10/15/24 11/06/24 documented as of this encounter
--- OUTSIDE RECORDS SUMMARY | 2024-12-16 20:25 | XMS_ITS | Clinical Summary ---
Author Organization Healthcare Address [address] [place] [address] Care Team Providers Care Museum Curator Name Role Phone DuFavian Wilfrido [facility] Primary Care Provider [phone] Navya Man MD Unavailable Allergies Active Allergy Reactions Criticality Noted Date Comments Morphine Hives Medium 01/21/2024 Mushroom Extract Complex (Obsolete) Itching,Swelling High 10/22/2024 Pt reports being allergic to all mushrooms Medications * This document contains information received from the source organization and may not represent a complete record from that organization. deferasirox (Exjade) 500 MG dispersible tablet Take 3 tablets by mouth daily before breakfast. Disperse tablets in water, orange juice, or apple juice (use 3.5 ounces for total doses less than1 g; 7 ounces for doses = 1 g). Stir, then drink entire contents. Rinse with more fluid; drink the rinse. 90 tablet 5 Active diclofenac (Voltaren) 1 % topical gel Place 4 g on the skin 4 times a day as needed (pain). Apply as directed to lower back 150 g 2 5 Active magnesium oxide (Mag-Ox) 400 (240 Mg) MG tablet Take 1 tablet by mouth daily. 30 tablet 5 Active methocarbamol (Robaxin) 750 MG tablet Take 1 tablet by mouth 3 times a day as needed for muscle spasms. Active lidocaine (Lidoderm) 5 % patch Apply 2 patches topically 1 (one) time each day at the same time over 12 hours. Remove & discard patch within 12 hours or as directed by MD. 30 patch 5 Active NIFEdipine XL (Adalat CC) 30 MG 24 hr tablet Take 1 tablet by mouth daily. Do not crush, chew, or split. 30 tablet 5 5 04/30/19 26 Active naloxone (Narcan) 4 mg/0.1 mL nasal spray 1. Give 1 spray in nostril for no/slow breathing or cannot wake after opioid use 2. Call 911 3. Repeat in other nostril if symptoms continue 1 each 5 Active hydroxyurea (Hydrea) 500 MG capsule Take 1 capsule (500 mg total) by mouth 2 times a day. 60 capsule 3 5 Active oxyCODONE (Roxicodone) 30 MG immediate release tablet Take 1 tablet by mouth every 6 hours as needed for severe pain. 120 tablet 5 Active apixaban (Eliquis) 5 MG tablet Take 1 tablet by mouth 2 times a day. 60 tablet 5 Active acetaminophen (Tylenol) 500 MG tablet Take 2 tablets by mouth every 8 hours as needed for pain. 90 tablet 5 Active folic acid (Folvite) 1 MG tablet Take 1 tablet by mouth daily. 30 tablet 5 01/11/20 25 Active acetaminophen (Tylenol) 500 MG tablet Take 2 tablets by mouth every 8 hours as needed for pain. 90 tablet 5 12/08/19 25 Discontinu ed(Reorder ) apixaban (Eliquis) 5 MG tablet Take 1 tablet by mouth 2 times a day. 60 tablet 5 12/08/19 25 Discontinu ed(Reorder ) folic acid (Folvite) 1 MG tablet Take 1 tablet by mouth daily. 30 tablet 5 12/08/19 25 Discontinu ed(Reorder ) oxyCODONE (Roxicodone) 30 MG immediate release tablet Take 1 tablet by mouth every 6 hours as needed for severe pain. 120 tablet 5 12/08/19 25 Discontinu ed(Reorder ) Active Problems Patient Care Coordination No te Formatting of this note migh t be different from the original. Encounter entered in error. 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 Assessment & Plan (08/31/2024 1:49 PM EDT): Orders: IR Port Placement 5+ Years; Future Hyposplenism 01/21/2024 History of DVT (deep vein thrombosis) 11/24/2023 History of stroke 07/16/2014 Overview (06/15/2024 9:50 PM EDT): As a child 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 Overview (06/15/2024): Hemochromatosis Sickle cell anemia Resolved Problems Problem Noted Date Diagnosed Date Resolved Date Sickle cell pain crisis 10/05/2024 08 Palliative care encounter 10/05/2024 Bloodstream infection due to central venous catheter, initial encounter 08/25/2024 10/19/2024 Bacteremia due to Klebsiella pneumoniae 08/20/2024 08/25/2024 Assessment & Plan (08/20/2024 3:41 PM EDT): Now complicating his pain crisis Streptococcal sepsis, unspecified 08/18/2024 10/19/2024 Collapsed vertebra, not else where classified, thoracic region, initial encounter for fracture 08/14/2024 10/19/2024 Epididymo-orchitis 04/26/2024 Abscess of epididymis or testis 04/25/2024 10/19/2024 Acute embolism and thrombosi s of other specified deep vein of left lower extremity 04/11/2024 06/15/2024 Chronic pulmonary edema 03/25/202406/05 Normocytic anemia 01/21/2024 06/15/2024 Acute respiratory failure with hypoxemia 01/21/2024 06/15/2024 Sickle cell pain crisis 01/21/2024 062 03/2024 Assessment & Plan (08/20/2024 3:41 PM EDT): Current regimen works and he is sure PRBC transfusion will help. Vascular access remains a barrier. Assessment & Plan (08/17/2024 3:12 PM EDT): Current regimen works and he is sure PRBC transfusion will help. Vascular access remains a barrier. We have interventions that will help [place]. They are dependent on vascular access. I am hoping that IR will be able to get access via port. Benefits go beyond this hospital stay. Having a port will certainly decrease readmission as he reports going long periods without a pain crisis while on the exchange program treatment. Assessment & Plan (08/16/2024 12:09 PM EDT): Pain crisis not controlled. Current regimen works and he is sure PRBC transfusion will help. Vascular access remains a barrier. We have interventions that will help [place]. They are dependent on vascular access. I am hoping that IR will be able to get access via port. Benefits go beyond this hospital stay. Having a port will certainly decrease readmission as he reports going long periods without a pain crisis while on the exchange program treatment. Assessment & Plan (08/15/2024 10:59 AM EDT): Pain crisis not controlled as he has gone many hours without IV access. Assessment & Plan (08/14/2024 3:28 PM EDT): Pain crisis is improved and not yet resolved. Assessment & Plan (08/12/2024 1:53 PM EDT): Pain crisis is improved and not yet resolved. 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 Hearing loss 04/10/2014 06/15/2024 Hepatitis B 09/27/2024 Encounters Date Type Department Care Team Description 12/12/2024 Travel 12/11/2024 Telephone [facility] Medicine Specialties [address] [place] [address] Kyra Lopez, RN 12/10/2024 10:00 AM EDT Ancillary Procedure [facility] Medicine Specialties [address] [place] [address] Chronic hepatitis C without hepatic coma 12/10/2024 Travel 12/09/2024 Travel 12/07/2024 Refill [facility] [address] [place] [address] Parth Fitzgerald MD 11/14/2024 External Documentation Encounter [facility] [address] [place] [address] Tala Maddox, NASEEM 11/08/2024 Refill [facility] Internal Medicine [address] [place] [address] Saw Solano MD 11/08/2024 Refill [facility] [address] [place] [address] Parth Fitzgerald MD 11/06/2024 Clinical Support [facility] [address] [place] [address] Jen Kraft, PharmD 10/24/2024 Travel 10/22/2024 Patient Outreach [facility] [address] [place] [address], [address] [place] [address] Phyllis Arango, RN 10/21/2024 Travel 10/19/2024 5:31 PM EDT - 11/02/2024 4:00 PM EDT Hospital Encounter [facility] Inpatient [address] [place] [address] Channing Wilson MD Raza, Syed A, MD Raymond, MD Xiomara Paz Ashok A, MD Blood transfusion reaction, initial encounter (Primary Dx); Sickle cell pain crisis (CMS/HCC) Discharge Disposition: Home or Self Care 10/19/2024 8:00 AM EDT - 10/19/2024 5:30 PM EDT Hospital Encounter [facility] Apheresis [address] [place] [address] Sickle cell disease with crisis (CMS/HCC) (Primary Dx) Discharge Disposition: Home or Self Care 10/19/2024 Lab Requisition [facility] Lab [address] [place] [phone] Sundeep Flynn MD Encounter for general adult medical examination without abnormal findings 10/19/2024 Travel 10/15/2024 Patient Outreach [place] [id number] [facility], [address] [place] [address] Cathleen Pena, [facility] 10/11/2024 Orders Only [facility] Lab [address] [place] [address] Parth Jaquez MD Sickle cell disease without crisis (CMS/HCC) (Primary Dx) 10/07/2024 Travel 10/05/2024 Results Follow-Up [facility] Medicine Specialties [address] [place] [address] Diana Alonzo PA 10/04/2024 5:24 PM EDT - 10/14/2024 2:06 PM EDT Hospital Encounter [facility] [address] [place] [address] Celio Farrell MD Owens, Susan E, MD Raza, Syed A, MD [place], Ciara M, MD Sickle cell pain crisis ([facility]/HCC) (Primary Dx); Anemia, unspecified type Discharge Disposition: Home or Self Care 10/04/2024 11:18 AM EDT - 10/04/2024 5:23 PM EDT Hospital Encounter [facility] Interventional Radiology [address] [place] [address] Chitra Kendrick, Jen Downey RN Sickle cell disease with crisis (CMS/HCC) (Primary Dx); Hemoglobin SS disease (CMS/HCC) Discharge Disposition: Home or Self Care 10/04/2024 Travel 10/03/2024 Travel 10/03/2024 Telephone [facility] Specialties [address] [place] [address] Kyra Lopez RN 09/28/2024 Patient Outreach [facility] Specialties [address] [place] [address] Suze Briggs 09/28/2024 Refill Professional [facility] [address] [place] [address] Navya Man MD 09/28/2024 Refill [facility] Nephrology, Bone & Mineral Metabolism [address], [address] [place] [address] Kennedy Storey MD 09/28/2024 Refill [facility] Hematology/BMT and Cellular Therapy Program [address] [place] [address] Christiano Kessler MD 09/27/2024 2:20 PM EDT Office Visit [place] [address] [place] [address] Diana Alonzo, JAMAL Chronic hepatitis C without hepatic coma (CMS/HCC) (Primary Dx) 09/27/2024 Travel 09/26/2024 Patient Outreach [facility] Specialties [address] [place] [address] Suze Briggs 09/18/2024 Patient Outreach [facility] Medicine Specialties [address] [place] [address] Carolina Lopez from Last 3 Months Immunizations Immunization Administration Dates Next Due DTP / HiB 02/06/1996,06/29/1995,03/22/1995 DTaP, Unspecified 12/08/1998 Hep B, Adolescent or Pediatric 06/29/1995 Influenza, Unspecified 03/09/2021,2019,12/13/2017,2010,01/01/2010,12/19/2008,01/25/2008 Influenza, injectable, quadr ivalent, preservative free 11/24/2018 Influenza, seasonal, injectable 12/11/2016,01/25,03/02/2007 Influenza, seasonal, injecta ble, preservative free 12/30/2011 MMR 09/17/1998,09/26/1995 Novel [id number], all formulations 02/13/2009 OPV 09/17/1998,06/29/1995,03/22/1995 Tdap 08/24/2006 Varicella 02/06/1996 Family History Medical History Relation Name Comments No Known Problems Mother Sickle cell anemia Niece Relation Name Status Comments Mother Niece Other Social History Tobacco Use Types Packs/Day Years [...] were you homeless or living in a senior care (including now)? 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) to steady your nerves or to [...] on file Sexual Orientation Not on file Last Filed Vital Signs Vital Sign Reading [...] Mass Index 23.92 10/19/2024 4:56 PM EDT Plan of Treatment Upcoming Encounters Date Type Department Care Team (Late st Contact Info) Description 12/19/2024 8:00 AM EDT Office Visit [facility] Vascular Interventional Radiology [address] [facility] [address] [place] [address] 12/25/2024 1:30 PM EDT Appointment [facility] Inter[facility] Radiology [address] [place] [address] Health Maintenance Due Date Last Done Comments [facility]-/Child/Adol SDOH Screenings 1994 [facility]-Hepatitis B Vaccines (2 of 3 - 3-dose series) 07/27/1995 09/27/2024, 08/01/2024, 06/29/1995 [facility]-Varicella Vaccines (2 of 2 - 2-dose childhood series) 03/13/2009 02/06/1996 [facility]-Hepatitis A Vaccines (1 of 2 - Risk 2-dose series) 2013 [facility]-Pneumococcal Vaccine: Pediatrics (0 to 5 Years) and At-Risk Patients (6 to 49 Years) (1 of 2 - PCV) 2013 [facility]-Zoster Vaccines (1 of 2) 2013 02/06/1996 [facility]-DTaP,Tdap,and Td Vaccines (6 - Td or Tdap) 08/24/2016 08/24/2006, 12/08/1998, 02/06/1996, Additional history exists HPV Vaccines (1 - 3-dose SCDM series) 2021 [id number] Vaccine ( - 2025-26 season) 2024 01/23/2021, 06/11/2020 [facility]-Influenza Vaccine (#1) 11/05/202403/09, 12/20/2019, 11/24/2018, Additional history exists [facility]- SDOH Screenings 04/25/2025 [facility]-Adult SDOH Screenings 04/25/2025 10/23/2024 [facility]-Depression Screening 08/31/2025 08/31/2024, 08/06 [facility]-HIB Vaccines Completed 02/06/1996, , 03/22/1995 [facility]-IPV Vaccines Completed 09/17/1998, , 03/22/1995 [facility]-HIV Screening Completed 02/10/2024, 01/03/2015 [facility]-Rotavirus Vaccines Aged Out No lo nger eligible based on patient's age to complete this topic Procedures Procedure Name Priority Date/Time Associated Diagnosis Comments GI FIBROSCAN Routine 12/10/2024 11:41 AM EDT Chronic hepatitis C without hepatic coma MAGNESIUM, PLASMA Routine 11/02/2024 5:2 3 AM EDT SEDIMENTATION RATE, AUTOMATED Routine 11/02/2024 5:23 AM EDT PROCALCITONIN, PLASMA Routine 11/02/2024 5:23 AM EDT PHOSPHORUS, PLASMA Routine 11/02/2024 5: 23 AM EDT CBC WITH AUTO DIFFERENTIAL Routine 11/02/2024 5:23 AM EDT C-REACTIVE PROTEIN, PLASMA Routine 11/02/2024 5:23 AM EDT BASIC METABOLIC PANEL, PLASMA Routine 11/02/2024 5:23 AM EDT HEMOGLOBIN AND HEMATOCRIT, BLOOD Routine 11/01/2024 6:42 PM EDT TRANSFUSE RED BLOOD CELLS Routine 11/01/2024 11:22 AM EDT TYPE AND SCREEN Routine 11/01/2024 10:04 AM EDT PREPARE RBC Routine 11/01/2024 9:20 AM EDT MAGNESIUM, PLASMA Routine 11/01/2024 2:0 6 AM EDT SEDIMENTATION RATE, AUTOMATED Routine 11/01/2024 2:06 AM EDT PROCALCITONIN, PLASMA Routine 11/01/2024 2:06 AM EDT PHOSPHORUS, PLASMA Routine 11/01/2024 2: 06 AM EDT CBC WITH AUTO DIFFERENTIAL Routine 11/01/2024 2:06 AM EDT C-REACTIVE PROTEIN, PLASMA Routine 11/01/2024 2:06 AM EDT BASIC METABOLIC PANEL, PLASMA Routine 11/01/2024 2:06 AM EDT VANCOMYCIN, RANDOM, PLASMA Routine 10/31/2024 5:31 AM EDT VANCOMYCIN, RANDOM, PLASMA Routine 10/31/2024 5:31 AM EDT MAGNESIUM, PLASMA Routine 10/31/2024 5:3 1 AM EDT SEDIMENTATION RATE, AUTOMATED Routine 10/31/2024 5:31 AM EDT PROCALCITONIN, PLASMA Routine 10/31/2024 5:31 AM EDT PHOSPHORUS, PLASMA Routine 10/31/2024 5: 31 AM EDT CBC WITH AUTO DIFFERENTIAL Routine 10/31/2024 5:31 AM EDT C-REACTIVE PROTEIN, PLASMA Routine 10/31/2024 5:31 AM EDT BASIC METABOLIC PANEL, PLASMA Routine 10/31/2024 5:31 AM EDT MAGNESIUM, PLASMA Routine 10/30/2024 6:1 0 AM EDT SEDIMENTATION RATE, AUTOMATED Routine 10/30/2024 6:10 AM EDT PROCALCITONIN, PLASMA Routine 10/30/2024 6:10 AM EDT PHOSPHORUS, PLASMA Routine 10/30/2024 6: 10 AM EDT CBC WITH AUTO DIFFERENTIAL Routine 10/30/2024 6:10 AM EDT C-REACTIVE PROTEIN, PLASMA Routine 10/30/2024 6:10 AM EDT BASIC METABOLIC PANEL, PLASMA Routine 10/30/2024 6:10 AM EDT VANCOMYCIN, RANDOM, PLASMA Routine 10/29/2024 6:12 AM EDT MAGNESIUM, PLASMA Routine 10/29/2024 6:1 2 AM EDT SEDIMENTATION RATE, AUTOMATED Routine 10/29/2024 6:12 AM EDT PROCALCITONIN, PLASMA Routine 10/29/2024 6:12 AM EDT PHOSPHORUS, PLASMA Routine 10/29/2024 6: 12 AM EDT CBC WITH AUTO DIFFERENTIAL Routine 10/29/2024 6:12 AM EDT C-REACTIVE PROTEIN, PLASMA Routine 10/29/2024 6:12 AM EDT BASIC METABOLIC PANEL, PLASMA Routine 10/29/2024 6:12 AM EDT BLOOD CULTURE (AEROBIC/ANAEROBIC SET) Routine 10/28/2024 10:15 AM EDT BLOOD CULTURE (AEROBIC/ANAEROBIC SET) Routine 10/28/2024 8:31 AM EDT VANCOMYCIN, RANDOM, PLASMA Routine 10/27/2024 5:19 AM EDT PROCALCITONIN, PLASMA Routine 10/27/2024 5:19 AM EDT SEDIMENTATION RATE, AUTOMATED Routine 10/27/2024 5:19 AM EDT C-REACTIVE PROTEIN, PLASMA Routine 10/27/2024 5:19 AM EDT BASIC METABOLIC PANEL, PLASMA Routine 10/27/2024 5:19 AM EDT PHOSPHORUS, PLASMA Routine 10/27/2024 5: 19 AM EDT CBC WITH AUTO DIFFERENTIAL Routine 10/27/2024 5:19 AM EDT BLOOD CULTURE (AEROBIC/ANAEROBIC SET) Routine 10/27/2024 4:18 AM EDT WOUND CULTURE AND GRAM STAIN Routine 10/26/2024 2:23 PM EDT BLOOD CULTURE (AEROBIC/ANAEROBIC SET) Routine 10/26/2024 2:22 PM EDT PROCALCITONIN, PLASMA Routine 10/26/2024 4:03 AM EDT SEDIMENTATION RATE, AUTOMATED Routine 10/26/2024 4:03 AM EDT C-REACTIVE PROTEIN, PLASMA Routine 10/26/2024 4:03 AM EDT BASIC METABOLIC PANEL, PLASMA Routine 10/26/2024 4:03 AM EDT PHOSPHORUS, PLASMA Routine 10/26/2024 4: 03 AM EDT CBC WITH AUTO DIFFERENTIAL Routine 10/26/2024 4:03 AM EDT VANCOMYCIN, PEAK, PLASMA Routine 10/25/2024 11:23 AM EDT VANCOMYCIN, TROUGH, PLASMA Routine 10/25/2024 7:50 AM EDT PROCALCITONIN, PLASMA Routine 10/25/2024 6:20 AM EDT SEDIMENTATION RATE, AUTOMATED Routine 10/25/2024 6:20 AM EDT C-REACTIVE PROTEIN, PLASMA Routine 10/25/2024 6:20 AM EDT BASIC METABOLIC PANEL, PLASMA Routine 10/25/2024 6:20 AM EDT PHOSPHORUS, PLASMA Routine 10/25/2024 6: 20 AM EDT CBC WITH AUTO DIFFERENTIAL Routine 10/25/2024 6:20 AM EDT PREPARE RBC Routine 10/24/2024 11:56 AM EDT BACTERIAL ID GRAM POSITIVE Routine 10/24/2024 10:37 AM EDT BLOOD CULTURE (AEROBIC/ANAEROBIC SET) STAT 10/24/2024 10:37 AM EDT ECHO, ADULT TRANSTHORACIC LIMITED W/ COLOR AND DOPPLER Routine 10/24/2024 10:22 AM EDT PROCALCITONIN, PLASMA Routine 10/24/2024 6:29 AM EDT SEDIMENTATION RATE, AUTOMATED Routine 10/24/2024 6:29 AM EDT C-REACTIVE PROTEIN, PLASMA Routine 10/24/2024 6:29 AM EDT HEPATIC FUNCTION PANEL Routine 6:29 AM EDT BASIC METABOLIC PANEL, PLASMA Routine 10/24/2024 6:29 AM EDT PHOSPHORUS, PLASMA Routine 10/24/2024 6: 29 AM EDT CBC WITH AUTO DIFFERENTIAL Routine 10/24/2024 6:29 AM EDT BLOOD CULTURE (AEROBIC/ANAEROBIC SET) STAT 10/23/2024 4:45 PM EDT CBC W/O DIFFERENTIAL Routine 10/23/2024 6:14 AM EDT COMPREHENSIVE METABOLIC PANEL, PLASMA Routine 10/23/2024 6:14 AM EDT MAGNESIUM, PLASMA Routine 10/23/2024 6:1 4 AM EDT C-REACTIVE PROTEIN, PLASMA Routine 10/23/2024 6:14 AM EDT CYSTATIN C Routine 10/23/2024 6:14 AM EDT PHOSPHORUS, PLASMA Routine 10/23/2024 6: 14 AM EDT TRANSFUSE RED BLOOD CELLS Routine 10/22/2024 3:15 PM EDT TYPE AND SCREEN Routine 10/22/2024 12:54 PM EDT PREPARE RBC Routine 10/22/2024 12:14 PM EDT HEPATITIS B CORE TOTAL AB (IGG AND IGM) Routine 10/22/2024 5:16 AM EDT HEPATITIS B SURFACE ANTIBODY, QUANTITATIVE Routine 10/22/2024 5:16 AM EDT CBC W/O DIFFERENTIAL Routine 10/22/2024 5:16 AM EDT CYSTATIN C Routine 10/22/2024 5:16 AM EDT C-REACTIVE PROTEIN, PLASMA Routine 10/22/2024 5:16 AM EDT PHOSPHORUS, PLASMA Routine 10/22/2024 5: 16 AM EDT MAGNESIUM, PLASMA Routine 10/22/2024 5:1 6 AM EDT COMPREHENSIVE METABOLIC PANEL, PLASMA Routine 10/22/2024 5:16 AM EDT BACTERIAL ID GRAM POSITIVE Routine 10/22/2024 5:16 AM EDT BLOOD CULTURE (AEROBIC/ANAEROBIC SET) Routine 10/22/2024 5:16 AM EDT VANCOMYCIN, PEAK, PLASMA Timed 10/21/2024 6:56 PM EDT VANCOMYCIN, TROUGH, PLASMA Timed 10/21/2024 3:43 PM EDT XR PANOREX Routine 10/21/2024 3:31 PM EDT TRANSFUSE RED BLOOD CELLS Routine 10/21/2024 5:53 AM EDT CBC W/O DIFFERENTIAL Routine 10/21/2024 4:33 AM EDT CYSTATIN C Routine 10/21/2024 4:33 AM EDT C-REACTIVE PROTEIN, PLASMA Routine 10/21/2024 4:33 AM EDT PHOSPHORUS, PLASMA Routine 10/21/2024 4: 33 AM EDT MAGNESIUM, PLASMA Routine 10/21/2024 4:3 3 AM EDT COMPREHENSIVE METABOLIC PANEL, PLASMA Routine 10/21/2024 4:33 AM EDT OXYCODONE CONFIRMATION,URINE Routine 10/20/2024 8:52 PM EDT OPIATES, LCMSMS, URINE Routine 8:52 PM EDT DRUG ABUSE SCREEN, URINE Routine 10/20/2024 8:52 PM EDT C-REACTIVE PROTEIN, PLASMA STAT Add-on 10/20/2024 4:42 AM EDT DIRECT BILIRUBIN, PLASMA Routine 10/20/2024 4:42 AM EDT LACTATE, VENOUS Routine 10/20/2024 4:42 AM EDT CBC WITH AUTO DIFFERENTIAL Routine 10/20/2024 4:42 AM EDT PROTHROMBIN TIME(PT) / INR Routine 10/20/2024 4:42 AM EDT PHOSPHORUS, PLASMA Routine 10/20/2024 4: 42 AM EDT MAGNESIUM, PLASMA Routine 10/20/2024 4:4 2 AM EDT COMPREHENSIVE METABOLIC PANEL, PLASMA Routine 10/20/2024 4:42 AM EDT SARS COV-2/COVID-19 BY PCR - RAPID Routine 10/20/2024 3:10 AM EDT NASOPHARYNGEAL RESPIRATORY PANEL STAT 10/20/2024 3:10 AM EDT MULTI DRUG RESISTANCE TEST Routine 10/20/2024 3:10 AM EDT URINE HERNANDEZ PANEL Timed 10/20/2024 2:31 AM EDT URINALYSIS WITH REFLEX MICROSCOPIC Timed 10/20/2024 2:31 AM EDT PAIN MANAGEMENT, QUANTITATIVE URINE DRUG TESTING STAT 10/20/2024 2:31 AM EDT URINALYSIS WITH REFLEX MICROSCOPIC AND CULTURE Timed 10/20/2024 2:31 AM EDT COMPREHENSIVE URINE DRUG SCREENING,QUALITATIVE ASSAY, >= 27 DRUG CLASSES STAT 10/20/2024 2:31 AM EDT PAIN MANAGEMENT, QUANTITATIVE URINE DRUG TESTING STAT 10/20/2024 2:31 AM EDT BACTERIAL ID GRAM [...] AUTO DIFFERENTIAL STAT 10/19/2024 6:20 PM EDT PROTHROMBIN TIME(PT) / INR STAT Add-on 10/19/2024 6:09 PM EDT APTT STAT Add-on 10/19/2024 6:09 PM EDT EXTRA TUBE LIGHT GREEN TOP Routine 10/19/2024 6:09 PM EDT EXTRA TUBE LIGHT BLUE TOP Routine 10/19/2024 6:09 PM EDT EXTRA TUBES Routine 10/19/2024 6:09 PM EDT TRANSFUSION REACTION CULTURE AND GRAM STAIN Routine 10/19/2024 6:08 PM EDT Encounter for general adult medical examination without abnormal findings PROCALCITONIN, PLASMA Add-On 10/19/2024 6:01 PM EDT LACTATE DEHYDROGENASE, PLASMA STAT Add-on 10/19/2024 6:01 PM EDT COMPREHENSIVE METABOLIC PANEL, PLASMA STAT 10/19/2024 6:01 PM EDT XR CHEST 1 VIEW STAT 10/19/2024 5:45 PM EDT ECG ADULT STAT 10/19/2024 5:03 PM EDT TRANSFUSION REACTION, PATHOLOGIST INTERPRETATION Routine 10/19/2024 1:26 [...] Sickle cell disease with crisis (CMS/HCC) HEMOGLOBIN AND HEMATOCRIT, BLOOD Routine 10/14/2024 7:54 AM EDT HEMOGLOBIN AND HEMATOCRIT, BLOOD Routine 10/13/2024 9:41 AM EDT CBC W/O DIFFERENTIAL Routine 10/12/2024 3:03 AM EDT LACTATE DEHYDROGENASE, PLASMA Timed 10/11/2024 9:33 AM EDT COMPREHENSIVE METABOLIC PANEL, PLASMA Timed 10/11/2024 9:33 AM EDT CBC W/O DIFFERENTIAL Routine 10/11/2024 3:01 AM EDT CBC W/O DIFFERENTIAL Routine 10/10/2024 6:31 AM EDT HEMOGLOBIN AND HEMATOCRIT, BLOOD Routine 10/09/2024 6:16 PM EDT TRANSFUSE RED BLOOD CELLS Routine 10/09/2024 11:37 AM EDT TYPE AND SCREEN Routine 10/09/2024 9:04 AM EDT PREPARE RBC Routine 10/09/2024 6:50 AM EDT LACTATE DEHYDROGENASE, PLASMA Routine 10/09/2024 4:32 AM EDT COMPREHENSIVE METABOLIC PANEL, PLASMA Routine 10/09/2024 4:32 AM EDT CBC W/O DIFFERENTIAL Routine 10/09/2024 4:32 AM EDT CBC W/O DIFFERENTIAL Routine 10/08/2024 3:08 PM EDT ECG ADULT STAT 10/07/2024 2:00 PM EDT XR CHEST 1 VIEW Routine 10/07/2024 12:32 PM EDT CBC WITH AUTO DIFFERENTIAL Routine 10/07/2024 4:06 AM EDT EXTRA TUBE LAVENDER TOP Routine 10/06/2024 1:53 PM EDT EXTRA TUBE LIGHT GREEN TOP Routine 10/06/2024 1:53 PM EDT EXTRA TUBES Routine 10/06/2024 1:53 PM EDT FERRITIN, SERUM Routine 10/06/2024 1:43 PM EDT TRANSFUSE RED BLOOD CELLS Routine 10/06/2024 10:06 AM EDT PREPARE RBC Routine 10/06/2024 7:20 AM EDT PROTEIN ELECTROPHORESIS, PATHOLOGIST INTERPRETATION Routine 10/06/2024 2:10 AM EDT TOTAL PROTEIN, SERUM Routine 10/06/2024 2:10 AM EDT PROTEIN ELECTROPHORESIS, SERUM Routine 10/06/2024 2:10 AM EDT COMPREHENSIVE METABOLIC PANEL, PLASMA Routine 10/06/2024 2:10 AM EDT PROTEIN ELECTROPHORESIS, SERUM Routine 10/06/2024 2:10 AM EDT IRON & TOTAL IRON BINDING CAPACITY, PLASMA (INCLUDES TRANSFERRIN) Routine 10/06/2024 2:10 AM EDT CBC W/O DIFFERENTIAL Routine 10/06/2024 2:10 AM EDT URINALYSIS MICROSCOPIC FOR UA REFLEX Routine 10/05/2024 11:49 AM EDT URINE HERNANDEZ PANEL Routine 10/05/2024 11:4 9 AM EDT URINALYSIS WITH REFLEX MICROSCOPIC Routine 10/05/2024 11:49 AM EDT URINALYSIS WITH REFLEX MICROSCOPIC AND CULTURE Routine 10/05/2024 11:49 AM EDT BLOOD CULTURE (AEROBIC/ANAEROBIC SET) Routine 10/05/2024 11:05 AM EDT LACTATE DEHYDROGENASE, PLASMA Routine 10/05/2024 3:11 AM EDT HEPATITIS B SURFACE ANTIGEN Routine 10/05/2024 3:11 AM EDT BASIC METABOLIC PANEL, PLASMA Routine 10/05/2024 3:11 AM EDT CBC W/O DIFFERENTIAL Routine 10/05/2024 3:11 AM EDT MULTI DRUG RESISTANCE TEST Routine 10/05/2024 1:02 AM EDT TROPONIN T, HIGH SENSITIVITY, 2 HOUR, PLASMA Timed 10/05/2024 1:01 AM EDT TRANSFUSE RED BLOOD CELLS Routine 10/04/2024 10:04 PM EDT TROPONIN T, HIGH SENSITIVITY, 0 HOUR, PLASMA, REFLEX TO 2 HOUR STAT 10/04/2024 8:00 PM EDT TYPE AND SCREEN STAT 10/04/2024 8:00 PM EDT PREPARE RBC Routine 10/04/2024 7:50 PM EDT XR CHEST 1 VIEW STAT 10/04/2024 6:07 PM EDT MORPHOLOGY STAT 10/04/2024 5:54 PM EDT CBC WITH AUTO DIFFERENTIAL STAT 10/04/2024 5:54 PM EDT RETICULOCYTES, BLOOD STAT 10/04/2024 5:54 PM EDT BASIC METABOLIC PANEL, PLASMA STAT 10/04/2024 5:54 PM EDT EXTRA TUBE GOLD TOP Routine 10/04/2024 5 :43 PM EDT EXTRA TUBES Routine 10/04/2024 5:43 PM EDT ECG ADULT STAT 10/04/2024 3:59 PM EDT IR PORT PLACEMENT 5+ YEARS Routine 10/04/2024 2:40 PM EDT Hemoglobin SS disease (CMS/HCC) INSERT PERIPHERAL IV Routine 10/04/2024 12:00 PM EDT HEPATITIS B CORE TOTAL AB (IGG AND IGM) Routine 10/04/2024 10:49 AM EDT Chronic hepatitis C without hepatic coma (CMS/HCC) HEPATITIS A ANTIBODY IGG Routine 10/04/2024 10:49 AM EDT Chronic hepatitis C without hepatic coma (CMS/HCC) HEPATITIS C VIRUS (HCV) QUANTITATIVE PCR Routine 10/04/2024 10:49 AM EDT Chronic hepatitis C without hepatic coma (CMS/HCC) COMPREHENSIVE METABOLIC PANEL, PLASMA Routine 10/04/2024 10:49 AM EDT Chronic hepatitis C without hepatic coma (CMS/HCC) CBC W/O DIFFERENTIAL Routine 10/04/2024 10:49 AM EDT Chronic hepatitis C without hepatic coma (CMS/HCC) PROTHROMBIN TIME(PT) / INR Routine 10/04/2024 10:49 AM EDT Preop examination HIV 1/2 ANTIBODY/ANTIGEN SCREEN WITH REFLEX TO HIV I/II DIFFERENTIATION Routine 02/10/2024 2:39 PM EST Sickle cell disease with crisis (CMS/HCC) from Last 3 Months or Most Recently Relevant to Health Maintenance Results * GI Fibroscan (12/10/2024 11:41 AM [...] IN CLINIC DIAGNOSTIC ORDERS Fin al Result Performing Organization Address [facility]/ZIP Co de Phone Number [facility] * (ABNORMAL) Procalcitonin, Plasma (11/02/2024 5:23 AM EDT) Only the most recent of10 resultswithin the time period is included. Procalcitonin, Plasma 0.48(H) <0.09 ng/mL 11/02/2024 6:13 AM EDT [facility] Blood Venous blood specimen / Unknown Venipuncture / Unknown 11/02/2024 5:23 AM EDT 11/02/2024 5:37 AM EDT Narrative [facility] - 11/02/2024 6:13 AM EDT [...] predict 28 day mortality risk. Please consult [email or web address] for more information. Test performed at [facility]. us Saw Solano MD LAB BLOOD ORDERABLES Final Res ult [facility] [address] [place] [address] * (ABNORMAL) Sedimentation Rate, Automated (11/02/2024 5:23 AM EDT) Only the most recent of9 resultswithin the time period is included. Sedimentation Rate 21(H) <15 mm/hr 2024 5:54 AM EDT [facility] Blood Venous blood specimen / Unknown Venipuncture / Unknown 11/02/2024 5:23 AM EDT 11/02/2024 5:37 AM EDT us Saw Solano MD LAB BLOOD ORDERABLES Final Res ult [facility] [address] [place] [address] * (ABNORMAL) CBC and Differential (11/02/2024 5:23 AM EDT) Only the most recent of13 resultswithin the time period is included. Pathologist [facility] WBC Count 9.07 3.70 - 10.30 10*3/uL LAB HEMATOLOGY METHOD 11/02/2024 5:45 AM EDT [facility] RBC Count 2.52(L) 4.60 - 6.10 10*6/uL LAB HEMATOLOGY METHOD 11/02/2024 5:45 AM EDT [facility] HGB 7.5(L) 13.7 - 17.5 g/dL LAB HEMATOLOGY METHOD 11/02/2024 5:45 AM EDT [facility] HCT 22.8(L) 40.0 - 51.0 % LAB HEMATOLOGY METHOD 11/02/2024 5:45 AM EDT [facility] Platelet Count 314 155 - 369 10*3/uL LAB HEMATOLOGY METHOD 11/02/2024 5:45 AM EDT [facility] MCV 91 79 - 98 fL LAB HEMATOLOGY METHOD 11/02/2024 5:45 AM EDT [facility] MCH 29.8 26.0 - 32.0 pg LAB HEMATOLOGY METHOD 11/02/2024 5:45 AM EDT [facility] MCHC 32.9 30.7 - 35.5 g/dL LAB HEMATOLOGY METHOD 11/02/2024 5:45 AM EDT [facility] RDW 18.0(H) 11.5 - 14.5 % LAB HEMATOLOGY METHOD 11/02/2024 5:45 AM EDT [facility] MPV 8.8 8.8 - 12.5 fL LAB HEMATOLOGY METHOD 11/02/2024 5:45 AM EDT [facility] nRBC 0.6(H) <=0.0 per 100 WBCs LAB HEMATOLOGY METHOD 11/02/2024 5:45 AM EDT [facility] Differential Type Automated LAB HEMATOLOGY METHOD 11/02/2024 5:45 AM EDT [facility] Neutrophils % 56 % LAB HEMATOLOGY METHOD 11/02/2024 5:45 AM EDT [facility] Lymphocytes % 30 % LAB HEMATOLOGY METHOD 11/02/2024 5:45 AM EDT [facility] Monocytes % 9 % LAB HEMATOLOGY METHOD 11/02/2024 5:45 AM EDT [facility] Eosinophils % 4 % LAB HEMATOLOGY METHOD 11/02/2024 5:45 AM EDT [facility] Basophils % 1 % LAB HEMATOLOGY METHOD 11/02/2024 5:45 AM EDT [facility] Immature Granulocytes % 0 % LAB HEMATOLOGY METHOD 11/02/2024 5:45 AM EDT [facility] Neutrophils Absolute 5.01 1.60 - 6.10 10*3/uL LAB HEMATOLOGY METHOD 11/02/2024 5:45 AM EDT [facility] Lymphocytes Absolute 2.72 1.20 - 3.90 10*3/uL LAB HEMATOLOGY METHOD 11/02/2024 5:45 AM EDT [facility] Monocytes Absolute 0.80 0.30 - 0.90 10*3/uL LAB HEMATOLOGY METHOD 11/02/2024 5:45 AM EDT [facility] Eosinophils Absolute 0.38 0.00 - 0.50 10*3/uL LAB HEMATOLOGY METHOD 11/02/2024 5:45 AM EDT [facility] Basophils Absolute 0.13(H) 0.00 - 0.10 10*3/uL LAB HEMATOLOGY METHOD 11/02/2024 5:45 AM EDT [facility] Immature Granulocytes Absolute 0.03 0.00 - 0.06 10*3/uL LAB HEMATOLOGY METHOD 11/02/2024 5:45 AM EDT [facility] Blood Venous blood specimen / Unknown Venipuncture / Unknown 11/02/2024 5:23 AM EDT 11/02/2024 5:37 AM EDT Narrative [facility] - 11/02/2024 5:45 AM EDT Therapeutic decision making should be based on absolute values, rather than percentages. us Saw Solano MD LAB BLOOD ORDERABLES Final Res ult Performing Organization Address [facility] Co de Phone Number [facility] [address] [place] [address] * C-Reactive Protein, Plasma (11/02/2024 5:23 AM EDT) Only the most recent of13 resultswithin the time period is included. CRP, Plasma 7.7 <=8.0 mg/L 11/02/2024 6:13 AM EDT [facility] Blood Venous blood specimen / Unknown Venipuncture / Unknown 11/02/2024 5:23 AM EDT 11/02/2024 5:37 AM EDT Narrative [facility] - 11/02/2024 6:13 AM EDT This CRP test is appropriate for assessment of infection, systemic inflammation and/or tissue injury. To assess cardiovascular disease risk order high sensitivity CRP (CRPH). us Saw Solano MD LAB BLOOD ORDERABLES Final Res ult Performing Organization Address [facility] de Phone Number [facility] [address] [address] * (ABNORMAL) Phosphorus, Plasma (11/02/2024 5:23 AM EDT) Only the most recent of13 resultswithin the time period is included. Phosphorus, Plasma 4.7(H) 2.5 - 4.5 mg/dL 11/02/2024 6:13 AM EDT [facility] Blood Venous blood specimen / Unknown Venipuncture / Unknown 11/02/2024 5:23 AM EDT 11/02/2024 5:37 AM EDT us Saw Solano MD LAB BLOOD ORDERABLES Final Res ult Performing Organization Address City/[facility]/ZIP Co de Phone Number [facility] [address] [place] [address] * (ABNORMAL) Magnesium, Plasma (11/02/2024 5:23 AM EDT) Only the most recent of9 resultswithin the time period is included. Magnesium, Plasma 1.8(L) 1.9 - 2.4 mg/dL 11/02/2024 6:13 AM EDT [facility] Blood Venous blood specimen / Unknown Venipuncture / Unknown 11/02/2024 5:23 AM EDT 11/02/2024 5:37 AM EDT us Saw Solano MD LAB BLOOD ORDERABLES Final Res ult [facility] [address] [place] [address] * (ABNORMAL) Basic Metabolic Panel, Plasma (11/02/2024 5:23 AM EDT) Only the most recent of11 resultswithin the time period is included. Glucose, Plasma 93 74 - 99 mg/dL 11/02/2024 6:13 AM EDT [facility] BUN, Plasma 13 7 - 21 mg/dL 11/02/2024 6:13 AM EDT [facility] Creatinine, Plasma 0.91 0.70 - 1.20 mg/dL 11/02/2024 6:13 AM EDT [facility] BUN/Creatinine Ratio 14 11/02/2024 6:13 AM EDT [facility] Sodium, Plasma 137 136 - 145 mmol/L 11/02/2024 6:13 AM EDT [facility] Potassium, Plasma 4.5 3.6 - 4.9 mmol/L 11/02/2024 6:13 AM EDT [facility] Chloride, Plasma 105 97 - 107 mmol/L 11/02/2024 6:13 AM EDT [facility] CO2, Plasma 22 22 - 29 mmol/L 11/02/2024 6:13 AM EDT [facility] Anion Gap 10 6 - 16 mmol/L 11/02/2024 6:13 AM EDT [facility] Total Calcium, Plasma 8.0(L) 8.9 - 10.2 mg/dL 11/02/2024 6:13 AM EDT [facility] eGFRcr 116.3 mL/min/1.7 3m*2 11/02/2024 6:13 AM EDT [facility] Comment:Reported eGFRcr in m L/min/1.73m2 is based the CKD-EPI 2020 equation that does not use a race coefficient. Blood Venous blood specimen / Unknown Venipuncture / Unknown 11/02/2024 5:23 AM EDT 11/02/2024 5:37 AM EDT us Saw Solano MD LAB BLOOD ORDERABLES Final Res ult Performing Organization Address [facility] de Phone Number [facility] [address] [place] [address] * (ABNORMAL) Hemoglobin and Hematocrit, Blood (11/01/2024 6:42 PM EDT) Only the most recent of4 resultswithin the time period is included. [facility] HGB 8.1(L) 13.7 - 17.5 g/dL LAB HEMATOLOGY METHOD 11/01/2024 7:23 PM EDT [facility] HCT 24.1(L) 40.0 - 51.0 % LAB HEMATOLOGY METHOD 11/01/2024 7:23 PM EDT [facility] Blood Venous blood specimen / Unknown Venipuncture / Unknown 11/01/2024 6:42 PM EDT 11/01/2024 7:10 PM EDT us Saw Solano MD LAB BLOOD ORDERABLES Final Res ult Performing Organization Address City/[facility] Co de Phone Number [facility] [address] [place] [address] * Transfuse RBC, Sickle Cell (Hgb S) Negative (11/01/2024 2:09 PM EDT) Only the most recent of7 resultswithin the time period is included. us Saw Solano MD BLOOD TRANSFUSION ORDERABLES F inal Result * Type and Screen (11/01/2024 10:04 AM EDT) Only the most recent of5 resultswithin the time period is included. ABO/Rh O Positive 11/01/2024 9:20 AM EDT [facility] Comment:Patient types mixed field due to transfused cells Antibody Screen Negative 11/01/2024 9:20 AM EDT BLOOD BANK Specimen Expiration 11/04/2024 23:59 11/01/2024 9:20 AM EDT [facility]LO[facility] Blood Venous blood specimen / Unknown Venipuncture / Unknown 11/01/2024 10:04 AM EDT 11/01/2024 10:07 AM EDT Saw Solano MD LAB BLOOD BANK TEST ORDERABLES Final Result Performing Organization Address City/[facility] Co de Phone Number BLOOD BANK [address] [place] [address], [place] * Prepare Leukocyte Reduced RBC: 1 Units, Sickle Cell (Hgb S) Negative, Leukocyte reduced (CMV reduced risk) (11/01/2024 9:20 AM EDT) Only the most recent of6 resultswithin the time period is included. Product Code [id number] BLOO D BANK Dispense Status Transfused BLOOD BANK Blood Expiration Date [id number] BLOOD BANK Unit Number [id number] B LOOD BANK Product Blood Type 9500 BLOOD BANK Blood Type O- BLOOD BANK Crossmatch Compatible BLOOD BANK Other Saw Solano MD BLOOD BANK PRODUCT ORDERABLES Final Result Performing Organization Address City/[facility] Co de Phone Number BLOOD BANK [address] [place] [address], [place] * Vancomycin, Random, Plasma (10/31/2024 5:31 AM EDT) Only the most recent of4 resultswithin the time period is included. Vancomycin, Random, Plasma 19.0 ug/mL 10/31/2024 6:13 AM EDT [facility] Blood Venous blood specimen / Unknown Venipuncture / Unknown 10/31/2024 5:31 AM EDT 10/31/2024 5:42 AM EDT us Saw Solano MD LAB BLOOD ORDERABLES Final Res ult Performing Organization Address City/[facility]/ZIP Co de Phone Number [facility] [address] [place] [address] * Blood Culture (Aerobic/Anaerobet Set) (10/28/2024 10:15 AM EDT) Only the most recent of10 resultswithin the time period is included. Culture No growth at day 5 YUNIER 11/02/2024 11:01 AM EDT [facility] Blood Venous blood specimen / Unknown Venipuncture / Unknown 10/28/2024 10:15 AM EDT 10/28/2024 10:44 AM EDT us Saw Solano MD LAB MICROBIOLOGY - GENERAL ORD ERABLES Final Result Performing Organization Address [facility] de Phone Number [facility] [address] [place] [address] * (ABNORMAL) Wound Culture and Gram Stain (10/26/2024 2:23 PM EDT) CULTURE READING WOUND Light Growth 10/29/2024 8:40 AM EDT [facility] CULTURE READING WOUND Staphylococcus epidermidis(A) YUNIER 10/29/2024 8:40 AM EDT [facility] Comment: This isolate has been identified using the FDA Approved [employer] System The organism value for this result has been updated. These results have been appended to the previously preliminary verified report. Gram Stain Result No organisms seen 10/29/2024 8:40 AM EDT [facility] Gram Stain Result No polymorphonuclear leukocytes seen 10/29/2024 8:40 AM EDT [facility] Swab Skin structure / Unknown [...] Staphylococcus epidermidis Vancomycin YUNIER 1 ug/ml: Susceptible Saw Solano MD LAB MICROBIOLOGY - GENERAL ORD ERABLES Final Result Performing Organization Address City/[facility]/ZIP Co de Phone Number [facility] [address] [place] [address] * (ABNORMAL) Vancomycin, Peak, Plasma Please draw vancomycin peak 2 hours after end of infusion on 10/25 (~1100). Level 2 of 2 (10/25/2024 11:23 AM EDT) Only the most recent of2 resultswithin the time period is included. Vancomycin, Peak, Plasma 14.7(L) 20.0 - 40.0 ug/mL 10/25/2024 12:06 PM EDT [facility] Blood Venous blood specimen / Unknown Venipuncture / Unknown 10/25/2024 11:23 AM EDT 10/25/2024 11:36 AM EDT Narrative [facility] - 10/25/2024 12:06 PM EDT Therapeutic Peak level: 20-40ug/mL Supra-therapeutic Peak level: >40 ug/mL Saw Solano MD LAB BLOOD ORDERABLES Final Res ult Performing Organization Address [facility] Co de Phone Number [facility] [address] [place] [address] * (ABNORMAL) Vancomycin, Trough, Plasma Please draw vancomycin trough 30 min before dose on 10/25 (~0730). Level 1 of 2 (10/25/2024 7:50 AM EDT) Only the most recent of2 resultswithin the time period is included. Vancomycin, Trough, Plasma 8.5(L) 10.0 - 20.0 ug/mL 10/25/2024 8:27 AM EDT [facility] Blood Venous blood specimen / Unknown Venipuncture / Unknown 10/25/2024 7:50 AM EDT 10/25/2024 7:55 AM EDT Narrative [facility] - 10/25/2024 8:27 AM EDT Therapeutic Trough level: 10-20ug/mL Supra-therapeutic Trough level: >20 ug/mL us Saw Solano MD LAB BLOOD ORDERABLES Final Res ult [facility] [address] [place] [address] * (ABNORMAL) Bacterial ID Gram Positive (10/24/2024 10:37 AM EDT) Only the most recent of4 resultswithin the time period is included. Pathologist [facility] Staphylococcus Result Detected( A) Not Detected 10/26/2024 8:38 AM EDT [facility] Comment:Assess if contaminan t or clinically relevant pathogen. Consider clinical stability and immune status of patient. MECA Result Detected( A) Not Detected 10/26/2024 8:38 AM EDT [facility] Blood Structure of part of left upper limb / Unknown Venipuncture / Unknown 10/24/2024 10:37 AM EDT 10/24/2024 11:01 AM EDT Narrative [facility] - 10/26/2024 8:38 AM EDT Analytes include: Bacillus cereus group, Bacillus subtilis group, Corynebacterium, Cutibacterium acnes (P acnes), Enterococcus, Enterococcus faecalis, Enterococcus faecium, Lactobacillus, Listeria, Listeria monocytogenes, Micrococcus, Staphylococcus, Staphylococcus aureus, Staphylococcus epidermidis, Stapylcoccus lugdunesis, Streptococcus, Streptococcus agalactiae, Streptococcus anginosus group, Streptococcus pneumoniae, Streptococcus pyogenes, Underwood gram negative target, [place]wood Noni target and mecA, mecC, Mine and vanB resistance genes. NOTE: A Not Detected result for result for a resistance gene does not indicate susceptibility to antimicrobials by mechanisms other than carrying the resistance genes detected by the BCID-GP assay. . [place]OD NONI: Inclusive of Noni albicans, Noni glabrata, Pichia kudriavzevii (formerly Noni krusei) and Noni parapsilosis only. . [place] GRAM NEGATIVE: Includes but not limited to Acinetobacter, Bacteroides, Enterobacteriaceae, Neisseria, Pseudomonas, Serratia, Stenotrophomonas maltophilia. . Reference Value: Not detected for all analytes tested. us Saw Solano MD LAB MICROBIOLOGY - GENERAL ORD ERABLES Final Result [facility] [address] [place] [id number] * ECHO, ADULT TRANSTHORACIC LIMITED W/ COLOR AND DOPPLER (10/24/2024 10:22 AM EDT) BSA 2.00 m2 LISSETTE ISCV Height 182.9 [...] there is no significant interval change noted. us Michael Andrade MD CV ECHO PROCEDURES Final Result * (ABNORMAL) Hepatic Function Panel (10/24/2024 6:29 AM EDT) Direct Bilirubin, Plasma 0.5(H) <=0.3 mg/dL 10/24/2024 7:14 AM EDT [facility] Alkaline Phosphatase, Plasma 65 40 - 115 U/L 10/24/2024 7:14 AM EDT [facility] Total Bilirubin, Plasma 1.8(H) 0.2 - 1.1 mg/dL 10/24/2024 7:14 AM EDT [facility] Albumin, Plasma 3.5 3.5 - 5.2 g/dL 10/24/2024 7:14 AM EDT [facility] Total Protein 7.6 6.3 - 7.9 g/dL 10/24/2024 7:14 AM EDT [facility] ALT, Plasma 34 10 - 50 U/L 10/24/2024 7:14 AM EDT [facility] AST, Plasma 69(H) 10 - 50 U/L 10/24/2024 7:14 AM EDT [facility] Blood Venous blood specimen / Unknown Venipuncture / Unknown 10/24/2024 6:29 AM EDT 10/24/2024 6:37 AM EDT us Saw Solano MD LAB BLOOD ORDERABLES Final Res ult [facility] [address] [place] [address] * Cystatin C (10/23/2024 6:14 AM EDT) Only the most recent of3 resultswithin the time period is included. Pathologist [facility] Cystatin C 0.95 0.61 - 0.95 mg/L 10/23/2024 9:04 AM EDT [facility] Blood Venous blood specimen / Unknown Venipuncture / Unknown 10/23/2024 6:14 AM EDT 10/23/2024 6:22 AM EDT us Michael Andrade MD LAB BLOOD ORDERABLES Final Resu lt [facility] [address] [place] [address] * (ABNORMAL) CBC W/O Differential (10/23/2024 6:14 AM EDT) Only the most recent of12 resultswithin the time period is included. Pathologist [facility] WBC Count 12.51(H) 3.70 - 10.30 10*3/uL LAB HEMATOLOGY METHOD 10/23/2024 6:30 AM EDT [facility] RBC Count 2.56(L) 4.60 - 6.10 10*6/uL LAB HEMATOLOGY METHOD 10/23/2024 6:30 AM EDT [facility] HGB 7.5(L) 13.7 - 17.5 g/dL LAB HEMATOLOGY METHOD 10/23/2024 6:30 AM EDT [facility] HCT 22.2(L) 40.0 - 51.0 % LAB HEMATOLOGY METHOD 10/23/2024 6:30 AM EDT [facility] Platelet Count 433(H) 155 - 369 10*3/uL LAB HEMATOLOGY METHOD 10/23/2024 6:30 AM EDT [facility] MCV 87 79 - 98 fL LAB HEMATOLOGY METHOD 10/23/2024 6:30 AM EDT [facility] MCH 29.3 26.0 - 32.0 pg LAB HEMATOLOGY METHOD 10/23/2024 6:30 AM EDT [facility] MCHC 33.8 30.7 - 35.5 g/dL LAB HEMATOLOGY METHOD 10/23/2024 6:30 AM EDT [facility] RDW 17.9(H) 11.5 - 14.5 % LAB HEMATOLOGY METHOD 10/23/2024 6:30 AM EDT [facility] MPV 9.0 8.8 - 12.5 fL LAB HEMATOLOGY METHOD 10/23/2024 6:30 AM EDT [facility] nRBC 2.2(H) <=0.0 per 100 WBCs LAB HEMATOLOGY METHOD 10/23/2024 6:30 AM EDT [facility] Blood Venous blood specimen / Unknown Venipuncture / Unknown 10/23/2024 6:14 AM EDT 10/23/2024 6:22 AM EDT us Michael Andrade MD LAB BLOOD ORDERABLES Final Resu lt [facility] [address] [place] [address] * (ABNORMAL) Comprehensive Metabolic Panel, Plasma (10/23/2024 6:14 AM EDT) Only the most recent of9 resultswithin the time period is included. Glucose, Plasma 104(H) 74 - 99 mg/dL 10/23/2024 7:42 AM EDT [facility] BUN, Plasma 7 7 - 21 mg/dL 10/23/2024 7:42 AM EDT [facility] Creatinine, Plasma 0.68(L) 0.70 - 1.20 mg/dL 10/23/2024 7:42 AM EDT [facility] BUN/Creatinine Ratio 10 10/23/2024 7:42 AM EDT [facility] Sodium, Plasma 138 136 - 145 mmol/L 10/23/2024 7:42 AM EDT [facility] Potassium, Plasma 4.1 3.6 - 4.9 mmol/L 10/23/2024 7:42 AM EDT [facility] Chloride, Plasma 107 97 - 107 mmol/L 10/23/2024 7:42 AM EDT [facility] CO2, Plasma 25 22 - 29 mmol/L 10/23/2024 7:42 AM EDT [facility] Anion Gap 6 6 - 16 mmol/L 10/23/2024 7:42 AM EDT [facility] Total Calcium, Plasma 8.2(L) 8.9 - 10.2 mg/dL 10/23/2024 7:42 AM EDT [facility] Total Protein 7.6 6.3 - 7.9 g/dL 10/23/2024 7:42 AM EDT [facility] Albumin, Plasma 3.5 3.5 - 5.2 g/dL 10/23/2024 7:42 AM EDT [facility] AST, Plasma 74(H) 10 - 50 U/L 10/23/2024 7:42 AM EDT [facility] ALT, Plasma 37 10 - 50 U/L 10/23/2024 7:42 AM EDT [facility] Alkaline Phosphatase, Plasma 68 40 - 115 U/L 10/23/2024 7:42 AM EDT [facility] Total Bilirubin, Plasma 1.6(H) 0.2 - 1.1 mg/dL 10/23/2024 7:42 AM EDT [facility] eGFRcr 128.2 mL/min/1.7 3m*2 10/23/2024 7:42 AM EDT [facility] Comment:Reported eGFRcr in m L/min/1.73m2 is based the CKD-EPI 2020 equation that does not use a race coefficient. Blood Venous blood specimen / Unknown Venipuncture / Unknown 10/23/2024 6:14 AM EDT 10/23/2024 6:22 AM EDT us Michael Andrade MD LAB BLOOD ORDERABLES Final Resu lt [facility] [address] [place] [address] * Hepatitis B Surface Antibody, Quantitative (10/22/2024 5:16 AM EDT) Hepatitis B Surface Antibody, Quantitative <8.00 NonReactiv e: <8, Grayzone: 8 - <12, Reactive: >= 12 mIU/mL 10/22/2024 6:27 AM EDT [facility] Comment: Nonreactive. Individual is considered not immune to HBV infection. Blood Venous blood specimen / Unknown Venipuncture / Unknown 10/22/2024 5:16 AM EDT 10/22/2024 5:30 AM EDT Michael Andrade MD LAB BLOOD ORDERABLES Final Resu lt Performing Organization Address [facility] Co de Phone Number [facility] [address] [place] [address] * (ABNORMAL) Hepatitis B Core Total Antibody IgG,IgM (10/22/2024 5:16 AM EDT) Only the most recent of2 resultswithin the time period is included. Hepatitis B Core Total Antibody IgG,IgM Positive(A ) Negative 10/22/2024 7:[address] [facility] Blood Venous blood specimen / Unknown Venipuncture / Unknown 10/22/2024 5:16 AM EDT 10/22/2024 5:30 AM EDT Michael Andrade MD LAB BLOOD ORDERABLES Final Resu lt Performing Organization Address [facility] de Phone Number [facility] [address] [place] [address] * XR Panorex (10/21/2024 3:31 PM EDT) [...] by Christiano Boston on 10/21/2024 3:45 PM us Michael Andrade MD IMG XR PROCEDURES Final Result * (ABNORMAL) OXYCODONE CONFIRMATION,URINE (10/20/2024 8:52 PM EDT) Oxycodone >1,000(H) <50 ng/mL 10/23/2024 7:12 AM EDT [facility] Oxymorphone <50 <50 ng/mL 10/23/2024 7:12 AM EDT [facility] Oxymorphone Glucuronide >1,000(H) <50 ng/mL 10/23/2024 7:12 AM EDT [facility] Urine Urine specimen obtained by clean catch procedure / Unknown Non-blood Collection / Unknown 10/20/2024 8:52 PM EDT 10/20/2024 8:57 PM EDT Narrative [facility] - 10/23/2024 7:12 AM EDT Test performed by LC-MS/MS at the [facility]. This test was developed and its performance characteristics determined by [facility]. It has not been cleared or approved by the FDA. The laboratory is regulated under CLIA as qualified to perform high-complexity testing. This test is used for clinical purposes. us Michael Andrade MD LAB URINE ORDERABLES Final Resu lt [facility] [address] [place] [address] * (ABNORMAL) Opiates Confirm Urine (10/20/2024 8:52 PM EDT) Codeine <50 <50 ng/mL 10/23/2024 7:12 AM EDT [facility] Codeine Glucuronide <50 <50 ng/mL 10/23/2024 7:12 AM EDT [facility] Desmethyl Tramadol <50 <50 ng/mL 10/23/2024 7:12 AM EDT [facility] EDDP - Methadone Metabolite <50 <50 ng/mL 10/23/2024 7:12 AM EDT [facility] Hydrocodone <50 <50 ng/mL 10/23/2024 7:12 AM EDT [facility] Hydromorphone >1,000(H) <50 ng/mL 10/23/2024 7:12 AM EDT [facility] Hydromorphone Glucuronide >1,000(H) <50 ng/mL 10/23/2024 7:12 AM EDT [facility] Comment:Metabolite of Hydrom orphone Meperidine <50 <50 ng/mL 10/23/2024 7:12 AM EDT [facility] Methadone <50 <50 ng/mL 10/23/2024 7:12 AM EDT [facility] 6 Monoacetyl morphine <10 <10 ng/mL 10/23/2024 7:12 AM EDT [facility] Morphine <50 <50 ng/mL 10/23/2024 7:12 AM EDT [facility] Morphine Glucuronide <50 <50 ng/mL 10/23/2024 7:12 AM EDT [facility] Comment:Metabolite of Morphi ne Naloxone <50 <50 ng/mL 10/23/2024 7:12 AM EDT [facility] Naloxone Glucuronide <50 <50 ng/mL 10/23/2024 7:12 AM EDT [facility] Comment:Metabolite of Naloxo ne Normeperidine <50 <50 ng/mL 10/23/2024 7:12 AM EDT [facility] Tramadol <50 <50 ng/mL 10/23/2024 7:12 AM EDT [facility] Urine Urine specimen obtained by clean catch procedure / Unknown Non-blood Collection / Unknown 10/20/2024 8:52 PM EDT 10/20/2024 8:57 PM EDT Narrative [facility] - 10/23/2024 7:12 AM EDT Drug analysis is confirmed by LC-MS/MS (LC Tandem Mass Spectrometry) on Urine specimens. This test was developed and its performance characteristics determined by [facility]. It has not been cleared or approved by the FDA. The laboratory is regulated under CLIA as qualified to perform high-complexity testing. This test is used for clinical purposes. Testing is performed at the [facility]. us Michael Andrade MD LAB URINE ORDERABLES Final Resu lt [facility] [address] [place] [address] * Drug Abuse Screen Urine (10/20/2024 8:52 PM EDT) Amphetamine Screen Urine Negative Cutoff: 500 ng/mL 10/20/2024 9:41 PM EDT [facility] Benzodiazepines Screen Urine Negative Cutoff: 200 ng/mL 10/20/2024 9:41 PM EDT [facility] Cannabinoid Screen Urine Negative Cutoff: 50 ng/mL 10/20/2024 9:41 PM EDT [facility] Cocaine Screen Urine Negative Cutoff: 300 ng/mL 10/20/2024 9:41 PM EDT [facility] Barbiturate Screen Urine Negative Cutoff: 200 ng/mL 10/20/2024 9:41 PM EDT [facility] Opiate Screen Urine Presumptive positive. Confirmation by LC-MS/MS to follow. Cutoff: 300 ng/mL 10/20/2024 9:41 PM EDT [facility] Methadone Screen Urine Negative Cutoff: 300 ng/mL 10/20/2024 9:41 PM EDT [facility] Buprenorphine Screen Urine Negative Cutoff: 10 ng/mL 10/20/2024 9:41 PM EDT [facility] Fentanyl Screen Urine Negative Cutoff: 1 ng/mL 10/20/2024 9:41 PM EDT [facility] Oxycodone Screen Urine Presumptive positive. Confirmation by LC-MS/MS to follow. Cutoff: 100 ng/mL 10/20/2024 9:41 PM EDT [facility] Urine Urine specimen obtained by clean catch procedure / Unknown Non-blood Collection / Unknown 10/20/2024 8:52 PM EDT 10/20/2024 8:57 PM EDT us Michael Andrade MD LAB URINE ORDERABLES Final Resu lt Performing Organization Address City/[facility]/ZIP Co de Phone Number [facility] [address] [place] [address] * Lactate, venous (10/20/2024 4:42 AM EDT) Lactate, Venous, Whole Blood 0.7 0.5 - 2.2 mmol/L LAB HEMATOLOGY METHOD 10/20/2024 4:56 AM EDT [facility] Blood Venous blood specimen / Unknown Venipuncture / Unknown 10/20/2024 4:42 AM EDT 10/20/2024 4:54 AM EDT us Malik Trent APRN LAB BLOOD ORDERABLES Final Re sult Performing Organization Address [facility]/ZIP Co de Phone Number [facility] [address] [place] [address] * (ABNORMAL) Prothrombin Time/INR (10/20/2024 4:42 AM EDT) Only the most recent of3 resultswithin the time period is included. Prothrombin Time 17.6(H) 12.0 - 14.3 sec 10/20/2024 5:06 AM EDT [facility] INR 1.5(H) 0.9 - 1.1 10/20/2024 5:06 AM EDT [facility] Blood Blood sample taken from central line / Unknown (Port) Long-term Catheter / Unknown 10/20/2024 4:42 AM EDT 10/20/2024 4:54 AM EDT Narrative [facility] - 10/20/2024 5:06 AM EDT OPTIMAL INR RANGES FOR PATIENT ON ORAL ANTICOAGULANT THERAPY Prevention of venous thromboembolism INR 2.0 to 3.0 In patients with heart disease: Atrial fibrillation INR 2.0 to 3.0 Valvular heart disease INR 2.0 to 3.0 Tissue heart valves INR 2.0 to 3.0 Mechanical prosthetic valves INR 2.5 to 3.5 Prevention of recurrent ND INR 2.5 to 3.5 Malik Trent LUBRICATING SPECIALIST LAB BLOOD ORDERABLES Final Re sult Performing Organization Address [facility] Co de Phone Number [facility] [address] [place] [address] * (ABNORMAL) Bilirubin, direct (10/20/2024 4:42 AM EDT) [facility] Direct Bilirubin, Plasma 0.4(H) <=0.3 mg/dL 10/20/2024 5:[address] [facility] Blood Venous blood specimen / Unknown Venipuncture / Unknown 10/20/2024 4:42 AM EDT 10/20/2024 5:04 AM EDT Malik Trent LUBRICATING SPECIALIST LAB BLOOD ORDERABLES Final Re sult Performing Organization Address [facility] [place] [address] * SARS CoV-2/COVID-19 by PCR - Rapid (10/20/2024 3:10 AM EDT) [facility] SARS CoV-2/COVID-1 9 RNA PCR Result Not Detected Not Detected 10/20/2024 4:[address] [facility] Swab Nasopharyngeal structure / Unknown Non-blood Collection / Unknown 10/20/2024 3:10 AM EDT 10/20/2024 4:11 AM EDT Narrative [facility] - 10/20/2024 4:57 AM EDT [...] MICROBIOLOGY - GENERAL OR DERABLES Final Result [facility] [address] [place] [address] * Nasopharyngeal Respiratory Panel (10/20/2024 3:10 AM EDT) Nasopharyngeal Respiratory PCR Interpretation Not Detected for all analytes Not Detected for all analytes 10/20/2024 6:03 AM EDT [facility] Swab Nasopharyngeal structure / Unknown Non-blood Collection / Unknown 10/20/2024 3:10 AM EDT 10/20/2024 4:11 AM EDT Narrative [facility] - 10/20/2024 6:03 AM EDT [...] Respiratory PCR Panel is performed using the Kambitlex instrument. This test is FDA approved for use with Nasopharyngeal swabs only. This test is used for clinical purposes. It should not be regarded as investigational or for research. The [facility] is certified under the Clinical Laboratory Improvement Amendments of 1988 (CLIA-88) as qualified to perform high complexity clinical laboratory testing. Malik Trent LUBRICATING SPECIALIST LAB MICROBIOLOGY - GENERAL OR DERABLES Final Result Performing Organization Address [facility] de Phone Number [facility] [address] [place] [address] * (ABNORMAL) Multi Drug Resistance Test (10/20/2024 3:10 AM EDT) Only the most recent of2 resultswithin the time period is included. Culture Methicillin-Resis tant Staphylococcus aureus(AA) 10/21/2024 8:48 AM EDT [facility] Comment: The organism value for this result has been updated. These results have been appended to the previously preliminary verified report. <null> has been updated to reportable. Swab (Nares and Venecia Rectal) Non-blood Collection / Unknown 10/20/2024 3:10 AM EDT 10/20/2024 4:22 AM EDT Narrative [facility] - 10/21/2024 8:48 AM EDT This test was developed and its performance characteristics determined by the [facility]. Although the media is FDA-approved, it is not FDA-approved for all specimen types submitted. The FDA has determined that such clearance or approval is not necessary. This test is used for surveillance purposes. It should not be regarded as investigational or for research. The [facility] is certified under the Clinical Laboratory Improvement Amendments of 1988 (CLIA-88) as qualified to perform high complexity clinical laboratory testing. Malik Catherine Twan LUBRICATING SPECIALIST LAB MICROBIOLOGY - GENERAL OR DERABLES Final Result Performing Organization Address [facility] de Phone Number [facility] [address] [place] [address] * Urine Hernandez Panel (10/20/2024 2:31 AM EDT) Only the most recent of2 resultswithin the time period is included. Extra Reflex urine culture not indicated 10/20/2024 11:01 AM EDT [facility] Comment: Previously prelim verified as Specimen evaluation [...] 2:31 AM EDT 10/20/2024 2:43 AM EDT us Malik Trent APRN LAB URINE ORDERABLES Final Re sult [facility] [address] [place] [address] * (ABNORMAL) Pain Management, Quantitative Urine Drug Testing (10/20/2024 2:31 AM EDT) [facility] [place] Alprazolam <20 <20 ng/mL 10/21 5:17 PM EDT [facility] [place] Midazolam <20 <20 ng/mL 2024 5:17 PM EDT [facility] [place] Triazolam <20 <20 ng/mL 2024 5:17 PM EDT [facility] Alprazolam <10 <10 ng/mL 10/21/2024 5:17 PM EDT [facility] Aminoclonazepam <20 <20 ng/mL 5 5:17 PM EDT [facility] Amphetamine <50 <50 ng/mL 10/21/2024 5:17 PM EDT [facility] Benzoylecgonine <50 <50 ng/mL 5:17 PM EDT [facility] Buprenorphine <10 <10 ng/mL 10/21/2024 5:17 PM EDT [facility] Buprenorphine Glucuronide <50 <50 ng/mL 10/21/2024 5:17 PM EDT [facility] Butalbital <50 <50 ng/mL 10/21/2024 5:17 PM EDT [facility] 9 Carboxy THC <10 <10 ng/mL 10/21/2024 5:17 PM EDT [facility] 9 Carboxy THC Glucuronide <25 <25 ng/mL 10/21/2024 5:17 PM EDT [facility] Clonazepam <10 <10 ng/mL 10/21/2024 5:17 PM EDT [facility] Codeine <50 <50 ng/mL 10/21/2024 5:17 PM EDT [facility] Codeine Glucuronide <50 <50 ng/mL 10/21 5:17 PM EDT [facility] Cyclobenzaprine <50 <50 ng/mL 5:17 PM EDT [facility] Desmethyl Tramadol <50 <50 ng/mL 2024 5:17 PM EDT [facility] Diazepam <10 <10 ng/mL 10/21/2024 5:17 PM EDT [facility] EDDP - Methadone Metabolite <50 <50 ng/mL 10/21/2024 5:17 PM EDT [facility] Fentanyl <1 <1 ng/mL 10/21/2024 5:17 PM EDT [facility] Hydrocodone <50 <50 ng/mL 10/21/2024 5:17 PM EDT [facility] Hydromorphone <50 <50 ng/mL 10/21/2024 5:17 PM EDT [facility] Hydromorphone Glucuronide >1,000(H) <50 ng/mL 10/21/2024 5:17 PM EDT [facility] Lorazepam <20 <20 ng/mL 10/21/2024 5:17 PM EDT [facility] Lorazepam Glucuronide <50 <50 ng/mL 10/21/2024 5:17 PM EDT [facility] MDA <50 <50 ng/mL 10/21/2024 5:17 PM EDT [facility] MDMA <50 <50 ng/mL 10/21/2024 5:17 PM EDT [facility] Meperidine <50 <50 ng/mL 10/21/2024 5:17 PM EDT [facility] Methadone <50 <50 ng/mL 10/21/2024 5:17 PM EDT [facility] Methamphetamine <50 <50 ng/mL 5:17 PM EDT [facility] Methylphenidate <50 <50 ng/mL 5:17 PM EDT [facility] 6 Monoacetyl morphine <10 <10 ng/mL 10/21/2024 5:17 PM EDT [facility] Morphine <50 <50 ng/mL 10/21/2024 5:17 PM EDT [facility] Morphine Glucuronide <50 <50 ng/mL 10/05 5:17 PM EDT [facility] Naloxone <50 <50 ng/mL 10/21/2024 5:17 PM EDT [facility] Naloxone Glucuronide <50 <50 ng/mL 10/05 5:17 PM EDT [facility] Norbuprenorphine <10 <10 ng/mL 10/22/19 5:17 PM EDT [facility] Norbuprenorphine Glucuronide <50 <50 ng/mL 10/21/2024 5:17 PM EDT [facility] Nordiazepam <20 <20 ng/mL 10/21/2024 5:17 PM EDT [facility] Norfentanyl <2 <2 ng/mL 10/21/2024 5:17 PM EDT [facility] Normeperidine <50 <50 ng/mL 10/21/2024 5:17 PM EDT [facility] PCP Quant, Ur <50 <50 ng/mL 10/21/2024 5:17 PM EDT [facility] Phenobarbital <50 <50 ng/mL 10/21/2024 5:17 PM EDT [facility] Oxazepam <20 <20 ng/mL 10/21/2024 5:17 PM EDT [facility] Oxazepam Glucuronide <50 <50 ng/mL 10/05 5:17 PM EDT [facility] Oxycodone >1,000(H) <50 ng/mL 10/21/2024 5:17 PM EDT [facility] Oxymorphone <50 <50 ng/mL 10/21/2024 5:17 PM EDT [facility] Oxymorphone Glucuronide >1,000(H) <50 ng/mL 10/21/2024 5:17 PM EDT [facility] Secobarbital <50 <50 ng/mL 10/21/2024 5:17 PM EDT [facility] Tramadol <50 <50 ng/mL 10/21/2024 5:17 PM EDT [facility] Temazepam <20 <20 ng/mL 10/21/2024 5:17 PM EDT [facility] Temazepam Glucuronide <50 <50 ng/mL 10/21/2024 5:17 PM EDT [facility] Urine Urine specimen obtained by clean catch procedure / Unknown Non-blood Collection / Unknown 10/20/2024 2:31 AM EDT 10/20/2024 2:44 AM EDT Narrative [facility] - 10/21/2024 5:17 PM EDT [...] laboratory. Test performed by LC-MS/MS at the [facility]. This test was developed and its performance characteristics determined by [facility]. It has not been cleared or approved by the FDA. The laboratory is regulated under CLIA as qualified to perform high-complexity testing. This test is used for clinical purposes. us Malik Trent APRN LAB URINE ORDERABLES Final Re sult [facility] [address] [place] [address] * (ABNORMAL) Comprehensive Urine Drug Screening, Qualitative Assay, >= 27 Drug Classes (52:31 AM EDT) Acetaminophen Positive(A) Negative 10/22/2024 4:36 PM EDT [facility] Alprazolam Negative Negative 10/22/2024 4:36 PM EDT [facility] Amantadine Negative Negative 10/22/2024 4:36 PM EDT [facility] Amitriptyline Negative Negative 10/22/2024 4:36 PM EDT [facility] Amphetamine Negative Negative 10/22/2024 4:36 PM EDT [facility] Atenolol Negative Negative 10/22/2024 4:36 PM EDT [facility] Benzoylecgonine Negative Negative 4:36 PM EDT [facility] Bisoprolol Negative Negative 10/22/2024 4:36 PM EDT [facility] Bupropion Negative Negative 10/22/2024 4:36 PM EDT [facility] Butalbital Negative Negative 10/22/2024 4:36 PM EDT [facility] Carbamazepine Negative Negative 10/22/2024 4:36 PM EDT [facility] Carisoprodol Negative Negative 10/22/2024 4:36 PM EDT [facility] Chlorpheniramine Negative Negative 10/23/19 4:36 PM EDT [facility] Citalopram Negative Negative 10/22/2024 4:36 PM EDT [facility] Clindamycin Negative Negative 10/22/2024 4:36 PM EDT [facility] Clonidine Negative Negative 10/22/2024 4:36 PM EDT [facility] Clopidogrel / Ticlopidine Negative Negative 10/22/2024 4:36 PM EDT [facility] Cocaethylene Negative Negative 10/22/2024 4:36 PM EDT [facility] Cocaine Negative Negative 10/22/2024 4:36 PM EDT [facility] Codeine Negative Negative 10/22/2024 4:36 PM EDT [facility] Cyclobenzaprine Negative Negative 4:36 PM EDT [facility] Desvenlafaxine Negative Negative 10/22/2024 4:36 PM EDT [facility] Dextromethorphan Negative Negative 10/23/19 4:36 PM EDT [facility] Diazepam Negative Negative 10/22/2024 4:36 PM EDT [facility] Diltiazem Negative Negative 10/22/2024 4:36 PM EDT [facility] Diphenhydramine Positive(A) Negative 10/23/19 4:36 PM EDT [facility] Doxepine Negative Negative 10/22/2024 4:36 PM EDT [facility] Doxylamine Negative Negative 10/22/2024 4:36 PM EDT [facility] EDDP-Methadone metabolite Negative Negative 10/22/2024 4:36 PM EDT [facility] Fentanyl Negative Negative 10/22/2024 4:36 PM EDT [facility] Fluconazole Negative Negative 10/22/2024 4:36 PM EDT [facility] Fluoxetine Negative Negative 10/22/2024 4:36 PM EDT [facility] Guaifenesin Positive(A) Negative 10/22/2024 4:36 PM EDT [facility] Haloperidol Negative Negative 10/22/2024 4:36 PM EDT [facility] Heroin/6-VICKIE Negative Negative 10/22/2024 4:36 PM EDT [facility] Hydrocodone Negative Negative 10/22/2024 4:36 PM EDT [facility] Hydroxyzine / Cetirizine metabolite Negative Negative 10/22/2024 4:36 PM EDT [facility] Ibuprofen Negative Negative 10/22/2024 4:36 PM EDT [facility] Imipramine Negative Negative 10/22/2024 4:36 PM EDT [facility] Ketamine Negative Negative 10/22/2024 4:36 PM EDT [facility] Labetolol Negative Negative 10/22/2024 4:36 PM EDT [facility] Lamotrigine Negative Negative 10/22/2024 4:36 PM EDT [facility] Levetiracetam Negative Negative 10/22/2024 4:36 PM EDT [facility] Lidocaine Negative Negative 10/22/2024 4:36 PM EDT [facility] MDA Negative Negative 10/22/2024 4:36 PM EDT [facility] MDMA Negative Negative 10/22/2024 4:36 PM EDT [facility] Memantine Negative Negative 10/22/2024 4:36 PM EDT [facility] Meperidine Negative Negative 10/22/2024 4:36 PM EDT [facility] Meprobamate Negative Negative 10/22/2024 4:36 PM EDT [facility] Metaxalone Negative Negative 10/22/2024 4:36 PM EDT [facility] Methamphetamine Negative Negative 4:36 PM EDT [facility] Methocarbamol Negative Negative 10/22/2024 4:36 PM EDT [facility] Methylecgonine Negative Negative 10/22/2024 4:36 PM EDT [facility] Metoclopramide Negative Negative 10/22/2024 4:36 PM EDT [facility] Metoprolol Negative Negative 10/22/2024 4:36 PM EDT [facility] Metronidazole Negative Negative 10/22/2024 4:36 PM EDT [facility] Midazolam Negative Negative 10/22/2024 4:36 PM EDT [facility] Midazolam Metabolite Negative Negative 10/22/2024 4:36 PM EDT [facility] Mirtazapine Negative Negative 10/22/2024 4:36 PM EDT [facility] Misc Test Result Positive(A) Negative 025 4:36 PM EDT [facility] Comment:Oxymorphone: positiv e Naproxen Negative Negative 10/22/2024 4:36 PM EDT [facility] Nefazodone Negative Negative 10/22/2024 4:36 PM EDT [facility] Norfentanyl Negative Negative 10/22/2024 4:36 PM EDT [facility] Nortriptyline Negative Negative 10/22/2024 4:36 PM EDT [facility] Ordanstron Negative Negative 10/22/2024 4:36 PM EDT [facility] Oxcarbazepine Negative Negative 10/22/2024 4:36 PM EDT [facility] Oxycodone Positive(A) Negative 10/22/2024 4:36 PM EDT [facility] Paroxethine Negative Negative 10/22/2024 4:36 PM EDT [facility] Phenobarbital Negative Negative 10/22/2024 4:36 PM EDT [facility] Phentermine Negative Negative 10/22/2024 4:36 PM EDT [facility] Phenytoin Negative Negative 10/22/2024 4:36 PM EDT [facility] Primidone Negative Negative 10/22/2024 4:36 PM EDT [facility] Promethazine Negative Negative 10/22/2024 4:36 PM EDT [facility] Propofol Negative Negative 10/22/2024 4:36 PM EDT [facility] Propranolol Negative Negative 10/22/2024 4:36 PM EDT [facility] Quetiapine Negative Negative 10/22/2024 4:36 PM EDT [facility] Quinine Negative Negative 10/22/2024 4:36 PM EDT [facility] Rantidine Negative Negative 10/22/2024 4:36 PM EDT [facility] Sertraline Negative Negative 10/22/2024 4:36 PM EDT [facility] Spironolactone Negative Negative 10/22/2024 4:36 PM EDT [facility] Tizanidine Negative Negative 10/22/2024 4:36 PM EDT [facility] Topiramate Negative Negative 10/22/2024 4:36 PM EDT [facility] Tramadol Negative Negative 10/22/2024 4:36 PM EDT [facility] Trazadone/ Trazadone metabolite Negative Negative 10/22/2024 4:36 PM EDT [facility] Trimethoprim Negative Negative 10/22/2024 4:36 PM EDT [facility] Valproic Acid Negative Negative 10/22/2024 4:36 PM EDT [facility] Venlafaxine Negative Negative 10/22/2024 4:36 PM EDT [facility] Verapamil Negative Negative 10/22/2024 4:36 PM EDT [facility] Zolpidem Negative Negative 10/22/2024 4:36 PM EDT [facility] Xylazine Negative Negative 10/22/2024 4:36 PM EDT [facility] Urine Urine specimen obtained by clean catch procedure / Unknown Non-blood Collection / Unknown 10/20/2024 2:31 AM EDT 10/20/2024 2:44 AM EDT us Malik Trent APRN LAB URINE ORDERABLES Final Re sult [facility] [address] [place] [address] * Urinalysis with reflex microscopic (Culture NOT Included) (10/20/2024 2:31 AM EDT) Only the most recent of2 resultswithin the time period is included. Color, Urine Dark Yellow LAB URINALYSIS - AUTOMATED METHOD 10/20/2024 2:37 AM EDT [facility] Clarity, Urine Clear LAB URINALYSIS - AUTOMATED METHOD 10/20/2024 2:37 AM EDT [facility] Spec [place], Urine 1.014 1.005 - 1.030 LAB URINALYSIS - AUTOMATED METHOD 10/20/2024 2:37 AM EDT [facility] pH, Urine 6.0 5.0 - 8.0 LAB URINALYSIS - AUTOMATED METHOD 10/20/2024 2:37 AM EDT [facility] Protein, Urine Negative Negative mg/dL LAB URINALYSIS - AUTOMATED METHOD 10/20/2024 2:37 AM EDT [facility] Glucose, Urine Negative Negative mg/dL LAB URINALYSIS - AUTOMATED METHOD 10/20/2024 2:37 AM EDT [facility] Ketones, Urine Negative Negative mg/dL LAB URINALYSIS - AUTOMATED METHOD 10/20/2024 2:37 AM EDT [facility] Blood, Urine Negative Negative LAB URINALYSIS - AUTOMATED METHOD 10/20/2024 2:37 AM EDT [facility] Bilirubin, Urine Negative Negative LAB URINALYSIS - AUTOMATED METHOD 10/20/2024 2:37 AM EDT [facility] Urobilinogen, Urine 1.0 0.2 to 1.0 mg/dL LAB URINALYSIS - AUTOMATED METHOD 10/20/2024 2:37 AM EDT [facility] Leukocytes, Urine Negative Negative LAB URINALYSIS - AUTOMATED METHOD 10/20/2024 2:37 AM EDT [facility] Nitrite, Urine Negative Negative LAB URINALYSIS - AUTOMATED METHOD 10/20/2024 2:37 AM EDT [facility] Urine Urine specimen obtained by clean catch procedure / Unknown Non-blood Collection / Unknown 10/20/2024 2:31 AM EDT 10/20/2024 2:35 AM EDT us Malik Trent APRN LAB URINE ORDERABLES Final Re sult [facility] [address] [place] [address] * (ABNORMAL) Haptoglobin (10/19/2024 7:36 PM EDT) Haptoglobin, Serum <10(L) 40 - 219 mg/dL 10/19/2024 10:37 PM EDT [facility] Blood Venous blood specimen / Unknown Venipuncture / Unknown 10/19/2024 7:36 PM EDT 10/19/2024 7:39 PM EDT us Channing Wilson MD LAB BLOOD ORDERABLES Final Result Performing Organization Address [facility]/ZIP Co de Phone Number [facility] [address] [place] [address] * (ABNORMAL) Morphology (10/19/2024 6:20 PM EDT) Only the most recent of2 resultswithin the time period is included. RBC Fragments/Schist ocytes Slight(A) (none) LAB HEMATOLOGY METHOD 10/19/2024 8:09 PM EDT [facility] Polychromasia Moderate LAB HEMATOLOGY METHOD 10/19/2024 8:09 PM EDT [facility] Elliptocytes/Ova locytes Present LAB HEMATOLOGY METHOD 10/19/2024 8:09 PM EDT [facility] Pappenheimer Bodies Present LAB HEMATOLOGY METHOD 10/19/2024 8:09 PM EDT [facility] RBC Morphology Slide Reviewed LAB HEMATOLOGY METHOD 10/19/2024 8:09 PM EDT [facility] Target Cells Present LAB HEMATOLOGY METHOD 10/19/2024 8:09 PM EDT [facility] Teardrop Cells Present LAB HEMATOLOGY METHOD 10/19/2024 8:09 PM EDT [facility] Platelet Estimate Platelet smear estimate consistent with automated count LAB HEMATOLOGY METHOD 10/19/2024 8:09 PM EDT [facility] Blood Venous blood specimen / Unknown Venipuncture / Unknown 10/19/2024 6:20 PM EDT 10/19/2024 6:22 PM EDT Chitra Thomas MD LAB BLOOD ORDERABLES Final Resu lt Performing Organization Address City/[facility]/ZIP Co de Phone Number [facility] [address] [place] [address] * (ABNORMAL) Reticulocytes (10/19/2024 6:20 PM EDT) Only the most recent of2 resultswithin the time period is included. Reticulocyte Absolute 227.3(H) 40.0 - 110.0 10*3/uL LAB HEMATOLOGY METHOD 10/19/2024 8:09 PM EDT [facility] Immature Reticulocyte Fraction 52.6(H) 3.1 - 17.6 % LAB HEMATOLOGY METHOD 10/19/2024 8:09 PM EDT [facility] Reticulocyte Hemoglobin 32.4 28 - 38 pg LAB HEMATOLOGY METHOD 10/19/2024 8:09 PM EDT [facility] Reticulocyte Count 9.50(H) 0.90 - 2.50 % LAB HEMATOLOGY METHOD 10/19/2024 8:09 PM EDT [facility] Blood Venous blood specimen / Unknown Venipuncture / Unknown 10/19/2024 6:20 PM EDT 10/19/2024 6:22 PM EDT us Chitra Thomas MD LAB BLOOD ORDERABLES Final Resu lt Performing Organization Address City/[facility]/ZIP Co de Phone Number [facility] [address] [place] [address] * Light Green Top (10/19/2024 6:09 PM EDT) Only the most recent of2 resultswithin the time period is included. Extra Hold for add-ons 10/19/2024 9:01 PM EDT [facility] Comment:Auto resulted. Blood Venous blood specimen / Unknown 10/19/2024 6:09 PM EDT 10/19/2024 6:24 PM EDT us Chitra Thomas MD LAB BLOOD ORDERABLES Final Resu lt Performing Organization Address City/[facility]/ZIP Co de Phone Number [facility] [address] [place] [address] * Light Blue Top (10/19/2024 6:09 PM EDT) Extra Hold for add-ons 10/19/2024 9:01 PM EDT [facility] Comment:Auto resulted. Blood Venous blood specimen / Unknown 10/19/2024 6:09 PM EDT 10/19/2024 6:24 PM EDT us Chitra Thomas MD LAB BLOOD ORDERABLES Final Resu lt Performing Organization Address [facility] Co de Phone Number [facility] [address] [place] [address] * APTT (10/19/2024 6:09 PM EDT) aPTT 28 25 - 35 sec LAB COAGULATION METHOD 10/19/2024 8:45 PM EDT [facility] Blood Venous blood specimen / Unknown 10/19/2024 6:09 PM EDT 10/19/2024 6:24 PM EDT us Channing Wilson MD LAB BLOOD ORDERABLES Final Result Performing Organization Address [facility] Co de Phone Number [facility] [address] [address] * Transfusion Reaction Culture and Gram Stain (10/19/2024 6:08 PM EDT) Culture No growth at day 7 2024 10:42 AM EDT [facility] Gram Stain Result No polymorphonuclear leukocytes seen 10/28/2024 10:42 AM EDT [facility] Gram Stain Result No organisms seen 10/28/2024 10:42 AM EDT [facility] Transfusion Bag Blood transfusion reaction / Unknown 10/19/2024 6:08 PM EDT 10/19/2024 6:08 PM EDT us Sundeep Flynn MD LAB MICROBIOLOGY - GENERAL ORDERABLES Final Result Performing Organization Address [facility] Co de Phone Number [facility] [address] [place] [address] * (ABNORMAL) LDH, Lactate dehydrogenase (10/19/2024 6:01 PM EDT) Only the most recent of4 resultswithin the time period is included. LDH, Plasma 1,369(H) 116 - 250 U/L 10/19/2024 8:09 PM EDT [facility] Comment:Hemolyzed, result ma y be falsely increased. Blood Venous blood specimen / Unknown Venipuncture / Unknown 10/19/2024 6:01 PM EDT 10/19/2024 6:04 PM EDT us Channing Wilson MD LAB BLOOD ORDERABLES Final Result Performing Organization Address [facility] de Phone Number [facility] [address] [address] * XR Chest 1 View (10/19/2024 5:45 PM EDT) Only the most recent of3 resultswithin the time period is included. Anatomical Region Laterality Modality Chest Digital Radiogra [...] Filiberto Boston MD on 10/19/2024 6:21 PM us Chitra Thomas MD IMG XR PROCEDURES Final Result * EKG now - STAT (adult) (10/19/2024 5:03 PM EDT) Only the most recent of3 resultswithin the time period is included. EKG DIAGNOSIS CLASS Abnormal MUSE ECG Ventricular Rate 109 BPM MUSE ECG Atrial Rate 109 BPM MUSE ECG SC Interval 138 ms MUSE ECG QRSD Interval 66 ms MUSE ECG QT Interval 316 ms MUSE ECG QTC Interval 425 ms MUSE ECG P [place] 70 degrees MUSE ECG R [place] 68 degrees MUSE ECG T Wave [place] 6 degrees MUSE ECG Diagnosis Sinus tachycardia MUSE ECG Diagnosis Nonspecific ST and T wave abnormality MUSE ECG Diagnosis Abnormal ECG MUSE ECG Diagnosis Compared to last ECG MUSE ECG Diagnosis T-waves are slightly inverted MUSE ECG Diagnosis Confirmed by Tito Dean ([id number]) on 10/20/2024 11:12:18 AM MUSE ECG 10/19/2024 5:03 PM EDT 10/20/2024 11:12 AM EDT us Channing Wilson MD ECG ORDERABLES Final Resul t MUSE ECG * Transfusion Reaction, Pathologist Interpretation (10/19/2024 1:26 [...] steroids. Note: TRALI investigation not indicated. REFERENCES Renny Carcamo Olsson M. [employer] Antigen Factsbook. 3rd ed. [place], [place]: Elsevier; 2012. [employer] Biovigilance Component. Hemovigilance Module Surveillance Protocol. Version 2.9. [place], [place]: [facility]; May 2024. A resident [...] ORDERAB LES Final Result Performing Organization Address City/State/[facility] Co de Phone Number BLOOD BANK [address] * Transfusion Reaction Investigation (10/19/2024 1:26 PM [...] Comment 10/18/2024 8:00 PM EDT [facility] Comment:[id number] LR HbS Negative O Positive RBC [...] 2:00 PM EDT us Sundeep Flynn MD [facility] TEST ORDERAB LES Edited Result - Final BLOOD BANK [address] [place] [address], * (ABNORMAL) Hemoglobin Eval w Rflx to Electrophoresis and/or RBC Solubility (SO) (10/19/2024 9:46 AMEDT) Hemoglobin A 71.9(L) 95.0 - 97.9 % 10/21/2024 5:23 PM EDT [facility] ([facility]) Hemoglobin A2 2.6 2.0 - 3.5 % 10/21/2024 5:23 PM EDT [facility] ([facility]) Hemoglobin F 2.1 0.0 - 2.1 % 10/21/2024 5:23 PM EDT [facility] ([facility]) Hemoglobin S 23.4(H) 0.0 - 0.0 % 10/21/2024 5:23 PM EDT [facility] ([facility]) Hemoglobin C 0.0 0.0 - 0.0 % 10/21/2024 5:23 PM EDT [facility] ([facility]) Hemoglobin E 0.0 0.0 - 0.0 % 10/21/2024 5:23 PM EDT [facility] ([facility]) Hemoglobin Other 0.0 0.0 - 0.0 % 10/21/2024 5:23 PM EDT [facility] ([facility]) Hemoglobin Evaluation See Note 10/21/2024 5:23 PM EDT [facility] ([facility]) Sickle Cell Solubility Reflex Conf Previous 10/21/2024 5:23 PM EDT [facility] ([facility]) Hgb Capillary Electrophoresis Reflex Not Performed 10/21/2024 5:23 PM EDT [facility] ([facility]) Blood Blood sample taken from central line / Unknown Venipuncture / Unknown 10/19/2024 9:46 AM EDT 10/19/2024 10:24 AM EDT Narrative [facility] ([facility]) - 10/21/2024 5:23 PM EDT Impression: Hb [...] by Alpha Globin (HBA1 and HBA2) Deletion/Duplication ([facility] test #[id number]) should be considered. Hb S/beta-plus thalassemia is typically characterized by more Hb S than Hb A with the presence of microcytosis. If microcytosis is present and Hb S/beta-plus thalassemia is suspected, Beta Globin (HBB) Sequencing ([facility] test #[id number]) is suggested. Hemoglobin analysis should be offered to the patient's family members to assess carrier status. Please correlate clinically and in the context of recent transfusion history. INTERPRETIVE INFORMATION: Hemoglobin Evaluation, with Reflex to Electrophoresis and/or RBC Solubility This test was developed and its performance characteristics determined by [employer]. It has not been cleared or approved [...] not repeated with this submission. Performed By: [employer] [address] [place] [id number] Patroller: Anthony Monterroso MD, PhD CLIA Number: [id number] Parth Jaquez MD LAB REF LAB BLOOD AND FLUID ORD Final Result [facility] ([facility]) [address] [place] [address] * ABO/Rh Type (10/19/2024 9:46 AM EDT) [...] ORDERAB LES Final Result Performing Organization Address [facility]/ZIP Co de Phone Number BLOOD BANK [address] [place] [address], * Ionized calcium, serum (10/19/2024 9:46 AM EDT) Ionized Calcium, Serum 4.9 4.6 - 5.3 mg/dL LAB HEMATOLOGY METHOD 10/19/2024 11:02 AM EDT [facility] Blood Blood sample taken from central line / Unknown Venipuncture / Unknown 10/19/2024 9:46 AM EDT 10/19/2024 10:24 AM EDT Parth Jaquez MD LAB BLOOD ORDERABLES Final Result [facility] [address] [place] [address] * Lavender Top (10/06/2024 1:53 PM EDT) Extra Hold for add-ons 10/06/2024 4:01 PM EDT [facility] Comment:Auto resulted. Blood Venous blood specimen / Unknown Venipuncture / Unknown 10/06/2024 1:53 PM EDT 10/06/2024 1:53 PM EDT us Alma Nguyen MD LAB BLOOD ORDERABLES Final Result Performing Organization Address City/[facility]/ZIP Co de Phone Number [facility] [address] [place] [address] * (ABNORMAL) Ferritin (10/06/2024 1:43 PM EDT) Ferritin, Serum 2,318(H) 20 - 400 ng/mL 10/06/2024 2:52 PM EDT [facility] Blood Venous blood specimen / Unknown Venipuncture / Unknown 10/06/2024 1:43 PM EDT 10/06/2024 1:54 PM EDT us Alma Nguyen MD LAB BLOOD ORDERABLES Final Result Performing Organization Address [facility] [place] [address] * Total Protein, Serum (10/06/2024 2:10 AM EDT) Total Protein 7.4 6.2 - 7.7 g/dL 10/06/2024 2:44 AM EDT [facility] Blood Venous blood specimen / Unknown Venipuncture / Unknown 10/06/2024 2:10 AM EDT 10/06/2024 2:15 AM EDT Result Kasandra Nguyen MD LAB BLOOD ORDERABLES Final Result Performing Organization Address City/[facility]/ZIP Co de Phone Number [facility] [address] [place] [address] * (ABNORMAL) Protein Electrophoresis, Serum (10/06/2024 2:10 AM EDT) Albumin Electrophoresis, Serum 3.5(L) 3.6 - 4.7 g/dL 10/09/2024 3:54 AM EDT [facility] Alpha 1 Globulin Electrophoresis, Serum 0.2 0.2 - 0.4 g/dL 10/09/2024 3:54 AM EDT [facility] Alpha 2 Globulin Electrophoresis, Serum 0.4(L) 0.5 - 0.9 g/dL 10/09/2024 3:54 AM EDT [facility] Beta 1 Globulin Electrophoresis, Serum 0.3 0.3 - 0.5 g/dL 10/09/2024 3:54 AM EDT [facility] Beta 2 Globulin Electrophoresis, Serum 0.5 0.2 - 0.5 g/dL 10/09/2024 3:54 AM EDT [facility] Gamma Globulin Electrophoresis, Serum 2.5(H) 0.6 - 1.5 g/dL 10/09/2024 3:54 AM EDT [facility] Interpretation, Serum Protein Electrophoresis Pathology report to follow. 10/09/2024 3:54 AM EDT [facility] Blood Venous blood specimen / Unknown Venipuncture / Unknown 10/06/2024 2:10 AM EDT 10/06/2024 2:15 AM EDT us Alma Nguyen MD LAB BLOOD ORDERABLES Final Result [facility] [address] [place] [address] * Protein electrophoresis serum, pathologist interpretation (10/06/2024 2:10 AM EDT) Clinical Diagnosis, SPEP Sickle cell pain crisis 10/09/2024 1:41 PM EDT [facility] Interpretation , SPEP The protein electrophoretic pattern shows a below normal albumin concentration with difuselly elevated polyclonal immunoglobulins that probably involves both IgA (beta-2 region) and IgG (gamma region). This pattern, especially the so-called beta-gamma bridging, is most commonly observed in chronic hepatocellular disease/cirrhosis. Alpha-2 fraction is just below reference limits. A resident was involved in the service. I attest I examined the relevant preparations for the specimens and confirmed the diagnosis or interpretation. 10/09/2024 1:41 PM EDT [facility] Pathologist Signature, SPEP Reviewed by: Elmer Bill MD 10/09/2024 1:41 PM EDT [facility] LAB CP ASR DISCLAIMER Yes 10/09/2024 1:41 PM EDT [facility] Blood Venous blood specimen / Unknown Venipuncture / Unknown 10/06/2024 2:10 AM EDT 10/06/2024 2:15 AM EDT us Alma Nguyen MD LAB PATHOLOGY ORDERABLES Fi nal Result Performing Organization Address [facility]/ZIP Co de Phone Number [facility] [address] [place] [address] * (ABNORMAL) Iron & Total Iron Binding Capacity, Plasma (Includes Transferrin) (10/06/2024 2:10 AM EDT) Iron, Plasma 104 50 - 170 ug/dL 10/06/2024 2:47 AM EDT [facility] Transferrin, Plasma 130(L) 200 - 360 mg/dL 10/06/2024 2:47 AM EDT [facility] Total Iron Binding Capacity, Plasma 163(L) 240 - 450 ug/mL 10/06/2024 2:47 AM EDT [facility] Transferrin Saturation 64(H) 14 - 50 % 10/06/2024 2:47 AM EDT [facility] Blood Venous blood specimen / Unknown Venipuncture / Unknown 10/06/2024 2:10 AM EDT 10/06/2024 2:15 AM EDT us Alma Nguyen MD LAB BLOOD ORDERABLES Final Result Performing Organization Address City/[facility] Co de Phone Number [facility] [address] [place] [address] * Urinalysis Microscopic Examination (10/05/2024 11:49 AM EDT) Urine Urine specimen obtained by clean catch procedure / Unknown Non-blood Collection / Unknown 10/05/2024 11:49 AM EDT 10/05/2024 12:01 PM EDT us Alma Nguyen MD LAB URINE ORDERABLES Final Result Performing Organization Address City/[facility]/ZIP Co de Phone Number [facility] [address] [place] [address] * Hepatitis B Surface Antigen (10/05/2024 3:11 AM EDT) [facility] Hepatitis B Surf Antigen Negative Negative 10/05/2024 4:24 AM EDT [facility] Blood Venous blood specimen / Unknown Venipuncture / Unknown 10/05/2024 3:11 AM EDT 10/05/2024 3:18 AM EDT us Lazaro Cortez MD LAB BLOOD ORDERABLES Final Resul t [facility] [address] [place] [address] * Troponin T, High Sensitivity, 2 Hour, Plasma (10/05/2024 1:01 AM EDT) [facility] Troponin T, High Sensitivity, 2 Hour <6 <19 ng/L 10/05/2024 1:26 AM EDT [facility] Blood Venous blood specimen / Unknown Venipuncture / Unknown 10/05/2024 1:01 AM EDT 10/05/2024 1:03 AM EDT us Celio Farrell MD LAB BLOOD ORDERABLES Final Result Performing Organization Address City/[facility]/[place] [address] * Troponin now and 120 min (10/04/2024 8:00 PM EDT) [facility] Troponin T, High Sensitivity, 0 Hour <6 <19 ng/L 10/04/2024 8:24 PM EDT [facility] Blood Venous blood specimen / Unknown Venipuncture / Unknown 10/04/2024 8:00 PM EDT 10/04/2024 8:02 PM EDT us Celio Farrell MD LAB BLOOD ORDERABLES Final Result [facility] [address] [place] [address] * Gold Top (10/04/2024 5:43 PM EDT) [facility] Extra Hold for add-ons 10/04/2024 8:01 PM EDT [facility] Comment:Auto resulted. Blood Venous blood specimen / Unknown 10/04/2024 5:43 PM EDT 10/04/2024 5:58 PM EDT us Anthony Godwin MD LAB BLOOD ORDERABLES Final Result [facility] [address] [place] [address] * IR Port Placement 5+ Years (10/04/2024 2:40 PM EDT) Anatomical Region Laterality Modality X-Ray Angiograph y Impressions 10/05/2024 10:17 AM EDT Successful placement of right-sided subcutaneous chest dual-lumen Vortex port. Tip is at cavoatrial junction. PLAN: Sedation recovery. IR clinic follow-up 2 weeks after port placement. Port is okay to use after first electrophoresis therapy, 72 hour incisional healing advised prior to use. CRITICAL RESULT: No. COMMUNICATION: Per this written report. By electronically signing this report, I, the attending physician, attest that I was present for the entire procedure(s) and agree with the final edited report. Drafted by Ana Laura Andrade DO on 10/04/2024 3:23 PM Final report signed by Kamar Wiley MD on 10/05/2024 10:17 AM Narrative 10/05/2024 10:17 AM EDT CLINICAL INDICATION: 29-year-old male presents for placement of dual-lumen vortex port secondary to plans for hemoglobin electrophoresis therapy; history sickle cell anemia. Ore Crusher: Kamar Wiley MD Secondary Horn Player: Ana Laura Andrade DO Nurse: Chitra kendrick Technologist: Jessica Chaney Rad Dose: 25 mGy Fluoroscopy Time: 1.8 minutes Medications: IV conscious sedation with continuous physiologic monitoring provided by a qualified healthcare professional using Versed 6 mg IV and Fentanyl 300 mcg IV. 1 mg Dilaudid. 1% Lidocaine SQ. Antibiotics: Ancef 2 g IV; Ancef 1 g/saline solution instilled within the port pocket. Duration of Conscious Sedation: Time out: 1325 close out: 1435 Procedure: After discussion of risks and benefits, informed written consent was obtained. Appropriate time out was done to confirm patient identity and planned procedure. The patient was placed supine on the fluoro table. Cab Driver ultrasonography revealed the vein to be compressible and patent. An electronic image thereof has been stored in PACS. Strict hand hygiene protocol was observed with the operators doing a surgical hand scrub. All personnel in the room were attired in surgical hat and mask. The operators were in surgical hat, mask, sterile gloves and gowns. The site was prepped with 2% chlorhexidine for cutaneous antisepsis, followed by sterile barrier draping. Conscious sedation was initiated. Local anesthetic was administered. The right internal jugular vein was visualized with US and punctured with a 21 gauge Micropuncture needle under guidance. The visualized portion of the vein was normal. A 0.018 soft tipped wire was then placed into the SVC under fluoroscopic guidance. Over the wire a 4Fr Micropuncture sheath was placed. A subcutaneous pocket was then created in the soft tissues of the chest several centimeters caudal to the clavicle. Lidocaine was then used to anesthetize a tract from the pocket to the puncture site at the base of the neck. A blunt tunneling device was then used to pass the port tubing from the pocket to the access site. The pocket was irrigated with antibiotic laced saline, and the port placed. Through the 4Fr sheath a 0.035 guidewire was advanced into the IVC under fluoroscopic guidance, the tract sequentially dilated, and finally over the wire a peel away sheath was placed, and the wire removed. While the patient maintained positive thoracic pressure, the tubing was passed into the SVC and the peel away removed. Tip position was recorded with a single digital spot image. The port was aspirated, flushed with saline, and then packed with heparinized saline at a concentration of 100 units/mL, in an amount appropriate for the port and tubing volume. The subcutaneous tissues overlying the port were closed with interrupted 2-0 Vicryl. Dermabond was then applied to the incisions.The patient tolerated the procedure well with no evidence of complication. Device: DUAL LUMEN PORT VORTEX 11.4FR ID [id number] COMPARISON: 08/18/2024 chest radiograph FINDINGS: Patent R IJV COMPLICATION: No. Procedure Note Kamar Wiley MD - 08/01/2025 CLINICAL INDICATION: 29-year-old male presents for placement of dual-lumen vortex portsecondary to plans for hemoglobin electrophoresis therapy; history sicklecell anemia. Ore Crusher: Kamar Wiley MD Secondary Horn Player: Ana Laura Andrade DO Nurse: Chitra kendrick Technologist: Jessica Chaney Rad Dose: 25 mGy Fluoroscopy Time: 1.8 minutes Medications: IV conscious sedation with continuous physiologic monitoringprovided by a qualified healthcare professional using Versed 6 mg IV andFentanyl 300 mcg IV. 1 mg Dilaudid. 1% Lidocaine SQ. Antibiotics: Ancef 2 g IV; Ancef 1 g/saline solution instilled within theport pocket. Duration of Conscious Sedation: Time out: 1325 close out: 1435 Procedure: After discussion of risks and benefits, informed written consent wasobtained. Appropriate time out was done to confirm patient identity andplanned procedure. The patient was placed supine on the fluoro table.Cab Driver ultrasonography revealed the vein to be compressible and patent. Anelectronic image thereof has been stored in PACS. Strict hand hygiene protocol was observed with the operators doing asurgical hand scrub. All personnel in the room were attired in surgicalhat and mask. The operators were in surgical hat, mask, sterile gloves andgowns. The site was prepped with 2% chlorhexidine for cutaneousantisepsis, followed by sterile barrier draping. Conscious sedation was initiated. Local anesthetic was administered. Theright internal jugular vein was visualized with US and punctured with a 21gauge Micropuncture needle under guidance. The visualized portion of thevein was normal. A 0.018 soft tipped wire was then placed into the SVCunder fluoroscopic guidance. Over the wire a 4Fr Micropuncture sheath wasplaced. A subcutaneous pocket was then created in the soft tissues of thechest several centimeters caudal to the clavicle. Lidocaine was then usedto anesthetize a tract from the pocket to the puncture site at the base ofthe neck. A blunt tunneling device was then used to pass the port tubingfrom the pocket to the access site. The pocket was irrigated withantibiotic laced saline, and the port placed. Through the 4Fr sheath a0.035 guidewire was advanced into the IVC under fluoroscopic guidance, thetract sequentially dilated, and finally over the wire a peel away sheathwas placed, and the wire removed. While the patient maintained positive thoracic pressure, the tubing was passed intothe SVC and the peel away removed. Tip position was recorded with a singledigital spot image. The port was aspirated, flushed with saline, and thenpacked with heparinized saline at a concentration of 100 units/mL, in anamount appropriate for the port and tubing volume. The subcutaneoustissues overlying the port were closed with interrupted 2-0 Vicryl.Dermabond was then applied to the incisions.The patient tolerated theprocedure well with no evidence of complication. Device: DUAL LUMEN PORT VORTEX 11.4FR ID [id number] COMPARISON: 08/18/2024 chest radiograph FINDINGS: Patent R IJV COMPLICATION: No. IMPRESSION: Successful placement of right-sided subcutaneous chest dual-lumen Vortexport. Tip is at cavoatrial junction. PLAN: Sedation recovery. IR clinic follow-up 2 weeks after port placement. Port is okay to use after first electrophoresis therapy, 72 hourincisional healing advised prior to use. CRITICAL RESULT: No. COMMUNICATION: Per this written report. By electronically signing this report, I, the attending physician, attestthat I was present for the entire procedure(s) and agree with the finaledited report. Drafted by Ana Laura Andrade DO on 10/04/2024 3:23 PM Final report signed by Kamar Wiley MD on 10/05/2024 10:17 AM Ileana Mayen APRN IM IR PROCEDURES Final Result * PERIPHERAL IV (SMARTFORM LINK) (10/04/2024 12:00 PM EDT) Narrative Stacie Bah, NASEEM - 10/04/2024 12:00 PM EDT Stacie Bah RN 10/04/2024 1:02 PM Insert peripheral IV Performed by: Stacie Bah, RN Authorized by: Ileana Mayen APRN [place] Protocol: Verbal consent obtained?: Yes Risks and benefits: Risks, benefits and alternatives were discussed Consent given by: Patient Patient states understanding of procedure being performed: Yes Patient identity confirmed: Verbally with patient, arm band, provided demographic data and hospital-assigned identification number Time out: Immediately prior to the procedure a time out was called DIVA Score: Extreme Hand hygiene: Hand hygiene performed prior to insertion Inserted using aseptic techniques: Yes Preparation: Skin prepped with alcohol and skin prepped with chg Orientation: Right and upper Location: Arm Catheter placed: Peripheral IV Catheter size: 20g/2.00in Line Technique: Ultrasound Guidance Number of attempts: 1 IV flushes: Without difficulty and positive blood return noted and IV luer locked Patient tolerance: Patient tolerated the procedure well and there were no complications Patient comfort measures used: Position of comfort IV site covered with: Transparent semipermeable dressing Comments: Catheter would not thread all the way into the vein...approximately 1/2 of catheter in the vein. There is consistent blood return. Education provided to patient at bedside regarding PIV care, s/s of infection and phlebitis. Patient verbalized understanding.Alcohol swab cap(s) applied. 3CG and/or vein images sent to PACS. Ileana Mayen LUBRICATING SPECIALIST IV THERAPY ORDERABLES F inal Result * (ABNORMAL) Hepatitis C Virus (HCV) Quantitative PCR (10/04/2024 10:49 AM EDT) Hepatitis C Virus (HCV) Quantitative Interpretation Detected( A) Not Detected. 10/05/2024 9:40 AM EDT [facility] Hepatitis C Virus (HCV) Quantitative Viral Load Log Result 5.08 <1.08 log10 IU/mL 10/05/2024 9:40 AM EDT [facility] Hepatitis C Virus (HCV) Quantitative IU/mL Result 119,488 <12 IU/mL 10/05/2024 9:40 AM EDT [facility] Blood Venous blood specimen / Unknown Venipuncture / Unknown 10/04/2024 10:49 AM EDT 10/04/2024 10:49 AM EDT Narrative [facility] - 10/05/2024 9:40 AM EDT The [employer] M2000 HCV test is a Real Time in vitro nucleic acid amplification test for the quantitation of Hepatitis C Viral (HCV) RNA in human serum in HCV-infected individuals. It is intended for use as an aid in the management of HCV-infected individuals undergoing anti-viral therapy. The dynamic range for this test is log10 = 1.08 to 8.00 and/or 12 to 100,000,000 IU/mL. The limit of detection (LOD) for this assay is 12 IU/mL and the limit of quantitation (LOQ) is 12 IU/mL. This assay is FDA approved for clinical use. Diana BERRY LAB BLOOD ORDERABLES Final Resu lt Performing Organization Address [facility] [place] [address] * Hepatitis A Antibody IgG (10/04/2024 10:49 AM EDT) Hepatitis A Antibody IgG Negative Negative 10/04/2024 1:[address] [facility] Blood Venous blood specimen / Unknown Venipuncture / Unknown 10/04/2024 10:49 AM EDT 10/04/2024 10:49 AM EDT Diana BERRY LAB BLOOD ORDERABLES Final Resu lt Performing Organization Address [facility] Phone Number [facility] [address] [place] [address] * HIV 1 & 2 Antibody/Antigen Screen (02/10/2024 2:39 PM EST) [facility] HIV 1 & 2 Antibody/Antigen Screen Non Reactive Non Reactive 02/10/2024 4:13 PM EST [facility] Comment:Screening for HIV 1 & 2 antibodies, and P24 antigen is NONREACTIVE. No confirmatory testing is required. Blood Venous blood specimen / Unknown Venipuncture / Unknown 02/10/2024 2:39 PM EST 02/10/2024 3:30 PM EST Maria Teresa Gonzalez MD LAB BLOOD ORDERABLES Final Res ult Performing Organization Address [facility] [place] [address] from Last 3 Months or Most Recently Relevant to Health Maintenance Additional Health Concerns Infection Onset Date Last Indicated MRSA Comment:Added from external infection. Source: [facility]. 11/14/2023 10/20/2024 ESBL Comment:Added from external infection. Source: [facility]. 11/26/2023 08/18/2024 MDRO 08/22/2024 08/22/2024 Insurance [facility] MEDICAID Advance Directives * Full Code (Latest Code Status on File) Date Activated Date Inactivated Comments 10/19/2024 11:56 PM 11/02/2024 6:00 PM Question Answer Comments I have reviewed the capacity from the link above and, if needed, have updated to appropriate status: Yes * Full Code Date Activated Date Inactivated Comments 10/05/2024 12:10 AM 10/14/2024 4:11 PM Question Answer Comments I have reviewed the capacity from the link above and, if needed, have updated to appropriate status: Yes * Full Code Date Activated Date Inactivated Comments 08/01/2024 7:08 PM 08/25/2024 2:03 PM Question Answer Comments I have reviewed the capacity from the link above and, if needed, have updated to appropriate status: Yes * Full Code Date Activated Date Inactivated Comments 06/15/2024 9:38 PM 06/26/2024 3:43 PM * Full Code Date Activated Date Inactivated Comments 04/26/2024 1:48 AM 05/01/2024 5:50 PM Question Answer Comments Patient has decision-making capacity? Yes Care Teams Museum Curator Relationship Specialty Start Date End Date Favian Sandy DO [address] [place] [address] PCP - General 07/05/24 Navya Man MD [address] [address] Consulting Physician Hematology 09/28/24
--- OUTSIDE RECORDS SUMMARY | 2024-12-16 20:25 | XMS_ITS | Encounter Summary ---
Author Organization Healthcare Address [address] [place] [address] Care Team Providers Care Band Scroll Saw Operator Name Role Phone DuFavian matamoros Wilfrido SIU Primary Care Provider [phone] Navya Man MD Unavailable Cathleen Pena LPN Unavailable Unavailabl e Phyllis Arango RN Unavailable Unavailab le Encounter Details Date Type Department Care Team (Late st Contact Info) Description 10/22/2024 Patient Outreach POPUL[facility] [address], [address] [place] [address] Phyllis Arango, RN CH-VASCULAR & INTERVENTIONAL RADIOLOGY Social History Tobacco Use Types Packs/Day Years [...] drink first t geri in the morning (EYE-SUPERVISOR GLUING) to steady your nerves or to get [...] of Assessment Author No Risk Indicated 10/22/2024 8:17 AM EDT Tip Cardozo RN * Question Answer Date of Assessment Author 1. Wish to be (Past 1 Month) No 025 8:17 AM EDT Maurice Cardozo RN 2. Non-Specific Active Suici mini Thoughts (Past 1 Month) No 10/22/2024 8:17 AM EDT Maurice Cardozo RN 6. Suicidal Behavior (Lifetime) No 8:17 AM EDT Maurice Cardozo RN documented as of this encounter Miscellaneous Notes * Progress Notes - Phyllis Arango, RN - 10/22/2024 11:08 AM EDT Patient identified for LINK program. Following chart review, patient determined to be ineligible based on program criteria. documented in this encounter Plan of Treatment Upcoming Encounters Date Type Department Care Team (Late st Contact Info) Description 12/19/2024 8:00 AM EDT Office Visit [facility] Vascular Interventional Radiology [address] [facility] [address] [place] [address] 12/25/2024 1:30 PM EDT Appointment [facility] A Interventional Radiology [address] [place] [address] documented as of this encounter Visit Diagnoses Not on filedocumented in this encounter Additional Health Concerns Infection Onset Date Last Indicated Resolved Time MRSA Comment:Added from external infection. Source: [facility]. 11/14/2023 10/20/2024 ESBL Comment:Added from external infection. Source: [facility]. 11/26/2023 08/18/2024 MDRO 08/22/2024 08/22/2024 Assessment Noted Time PHQ-9 Depression Total Score: 0 09/01/19 12:42 PM EDT A fall risk assessment has been complete d for the patient 09/27/2024 2:07 PM EDT A Body Mass Index follow-up plan has been documented for the patient 11/02/2024 2:26 PM EDT documented as of this encounter Care Teams Band Scroll Saw Operator Relationship Specialty Start Date End Date Favian Sandy DO [address] [place] [facility] [address] [place] [address] PCP - General 07/05/24 Navya Man MD [address] [address] Consulting Physician Hematology 09/28/24 Cathleen Pena, SERVICE MEMBER [facility] TCM Nurse 10/15/24 11/06/24 Phyllis Arango, RN CH-VASCULAR & INTERVENTIONAL RADIOLOGY Registered Nurse 10/22/24 10/22/24 documented as of this encounter
--- OUTSIDE RECORDS SUMMARY | 2024-12-16 20:25 | XMS_ITS | Encounter Summary ---
Author Organization Healthcare Address [address] [place] [address] Care Team Providers Care Oil Truck Driver Name Role Phone Favian Sandy DO Primary Care Provider [phone] Navya Man MD Unavailable Encounter Details Date Type Department Care Team (Latest Contact Info) Description 12/12/2024 Travel Social History Tobacco Use Types Packs/Day [...] in the past 12 m [facility], were you homeless or living in a group home (including now)? No 10/23/2024 CAGE ASSESSMENT [...] drink first t geri in the morning (EYE-DENTAL OFFICE COORDINATOR) to steady your nerves or to get [...] Description 12/19/2024 8:00 AM EDT Office Visit [facility] Vascular Interventional Radiology [address] [place] [address] 12/25/2024 1:30 PM EDT Appointment [facility] A Interventional Radiology [address] [place] [address] documented as of this encounter Visit Diagnoses Not on filedocumented in this encounter Additional Health Concerns Infection Onset Date Last Indicated Resolved Time MRSA Comment:Added from external infection. Source: [facility]. 11/14/2023 10/20/2024 ESBL Comment:Added from external infection. Source: [facility]. 11/26/2023 08/18/2024 MDRO 08/22/2024 08/22/2024 Assessment Noted Time PHQ-9 Depression Total Score: 0 09/01/19 12:42 PM EDT A fall risk assessment has been complete d for the patient 09/27/2024 2:07 PM EDT A Body Mass Index follow-up plan has been documented for the patient 11/06/2024 9:20 AM EDT documented as of this encounter Care Teams Oil Truck Driver Relationship Specialty Start Date End Date Favian Sandy DO [address] [place] [address] PCP - General 07/05/24 Navya Man MD [address] [place] [phone] Consulting Physician Hematology 09/28/24 documented as of this encounter
--- OUTSIDE RECORDS SUMMARY | 2024-12-16 20:25 | XMS_ITS | Encounter Summary ---
Author Organization Healthcare Address [address] [place] [address] Care Team Providers Care Web Production Manager Name Role Phone DuFavian Wilfrido SIU Primary Care Provider [phone] Navya Man MD Unavailable Encounter Details Date Type Department Care Team (Late st Contact Info) Description 12/11/2024 [facility]phone [facility] [address] [place] [address] Kyra Lopez, RN Social History Tobacco Use Types Packs/Day Years [...] in the past 12 m [facility], were you homeless or living in a halfway (including now)? No 10/23/2024 CAGE ASSESSMENT Answer [...] drink first t geri in the morning (EYE-STUBBER) to steady your nerves or to get rid of a hangover? 0 10/20/2024 CAGE Questionnaire Score 0 025 Utilities Answer Date Recorded In the past 12 months has th e electric, gas, oil, or water [employer] threatened to shut off services in your home? No 10/23/2024 Sex and Gender Information Value Date Recorded Sex Assigned at Male 03/16/2024 2:12 PM EST Legal Sex Male 7:40 PM EDT Gender Identity Not on file Sexual Orientation Not on file documented as of this encounter Miscellaneous Notes * Telephone Encounter - Kyra Lopez RN - 12/11/2024 2:29 PM EDT Received secure chat from director case management that pt completed fibroscan on 12/10/24. They were inquiring on a f/u appt. Advised provider is EDILIA and we will discuss with Diana on her return documented in this encounter Plan of Treatment Upcoming Encounters Date Type Department Care Team (Late st Contact Info) Description 12/19/2024 8:00 AM EDT Office Visit [facility] Vascular Interventional Radiology [address] [facility] [address] [place] [address] 12/25/2024 1:30 PM EDT Appointment [facility] A Interventional Radiology [address] [place] [address] documented as of this encounter Visit Diagnoses Not on filedocumented in this encounter Additional Health Concerns Infection Onset Date Last Indicated Resolved Time MRSA Comment:Added from external infection. [facility] 11/14/2023 10/20/2024 ESBL Comment:Added from external infection. Source: [facility] 11/26/2023 08/18/2024 MDRO 08/22/2024 08/22/2024 Assessment Noted Time PHQ-9 Depression Total Score: 0 09/01/19 25 12:42 PM EDT A fall risk assessment has been complete d for the patient 09/27/2024 2:07 PM EDT A Body Mass Index follow-up plan has been documented for the patient 11/06/2024 9:20 AM EDT documented as of this encounter Care Teams Web Production Manager Relationship Specialty Start Date End Date Favian Sandy, [address] [facility] [address] [place] [address] PCP - General 07/05/24 Navya Man MD [address] [phone] Consulting Physician Hematology 09/28/24 documented as of this encounter
--- OUTSIDE RECORDS SUMMARY | 2024-12-16 20:25 | XMS_ITS | Encounter Summary ---
Author Organization Healthcare Address [address] [place] [address] Care Team Providers Care Termite Control Service Representative Name Role Phone DuFavian matamoros Wilfrido SIU Primary Care Provider [phone] Navya Man MD Unavailable Reason for Visit * Reason Onset Date Comments Med Refill 12/07/2024 Encounter Details Date Type Department Care Team (Late st Contact Info) Description 12/07/2024 Refill [facility] [address] [place] [phone] Parth Fitzgerald MD [address] [place] [address] Social History Tobacco Use Types Packs/Day Years [...] any time in the past 12 m [facility], were you homeless or living [...] drink first t geri in the morning (EYE-FUEL PILOT ENGINEER) to steady your nerves or to [...] Description 12/19/2024 8:00 AM EDT Office Visit [facility] Vascular Interventional Radiology [address] [facility] [address] [address] 12/25/2024 1:30 PM EDT Appointment [facility] A Interventional Radiology [address] [place] [address] documented as of this encounter Visit Diagnoses Not on filedocumented in this encounter Additional Health Concerns Infection Onset Date Last Indicated Resolved Time MRSA Comment:Added from external infection. Source: [facility]. 11/14/2023 10/20/2024 ESBL Comment:Added from external infection. Source: [facility]. 11/26/2023 08/18/2024 MDRO 08/22/2024 08/22/2024 Assessment Noted Time PHQ-9 Depression Total Score: 0 09/01/19 25 12:42 PM EDT A fall risk assessment has been complete d for the patient 09/27/2024 2:07 PM EDT A Body Mass Index follow-up plan has been documented for the patient 11/06/2024 9:20 AM EDT documented as of this encounter Care Teams Termite Control Service Representative Relationship Specialty Start Date End Date Favian Sandy DO [address] [facility] [address] [place] [address] PCP - General 07/05/24 Navya Man MD [phone] Consulting Physician Hematology 09/28/24 documented as of this encounter
--- OUTSIDE RECORDS SUMMARY | 2024-12-16 20:25 | XMS_ITS | Encounter Summary ---
Author Organization Healthcare Address [address] [place] [address] Care Team Providers Care Relay Shop Supervisor Name Role Phone Favian Sandy DO Primary Care Provider [phone] Navya Man MD Unavailable Encounter Details Date Type Department Care Team (Latest Contact Info) Description 12/10/2024 Travel Social History Tobacco Use Types Packs/Day [...] any time in the past 12 m [facility], were you homeless or living in [...] drink first t geri in the morning (EYE-POPCORN ATTENDANT) to steady your nerves or to [...] 12/19/2024 8:00 AM EDT Office Visit [facility] Vascular Interventional Radiology [address] [place] [address] 12/25/2024 1:30 PM EDT Appointment [facility] A Interventional Radiology [address] [place] [address] documented as of this encounter Visit Diagnoses Not on filedocumented in this encounter Additional Health Concerns Infection Onset Date Last Indicated Resolved Time MRSA Comment:Added from external infection. Source: [facility]. 11/14/2023 10/20/2024 ESBL Comment:Added from external infection. Source: [facility]. 11/26/2023 08/18/2024 MDRO 08/22/2024 08/22/2024 Assessment Noted Time PHQ-9 Depression Total Score: 0 09/01/19 12:42 PM EDT A fall risk assessment has been complete d for the patient 09/27/2024 2:07 PM EDT A Body Mass Index follow-up plan has been documented for the patient 11/06/2024 9:20 AM EDT documented as of this encounter Care Teams Relay Shop Supervisor Relationship Specialty Start Date End Date Favian Sandy DO [address] [place] [address] PCP - General 07/05/24 Navya Man MD [address] [place] [phone] Consulting Physician Hematology 09/28/24 documented as of this encounter
--- NOTE | 2024-12-16 20:42 | ED_ITS ---
Discharge Plan Disposition Chief Complaint: Chest Pain Prescriptions Prescriptions: No Action hydroxyurea 500 mg capsule 500 mg PO DAILY Eliquis 5 mg tablet 5 mg PO DAILY oxycodone 20 mg tablet 30 mg PO Q6H Referrals Follow up/Referrals: Provider,Referral, [Primary Care Provider, Medical] - See instructions Print Language Print Language: Malagasy Discharge ED Provider: Ileana Louie HPI <Dori Angel APRN - Last Filed: 12/16/24 20:56> General Chief Complaint: Chest Pain Stated Complaint: chest pain Time Seen by Provider: 12/16/24 20:30 Mode of Arrival: Ambulatory Source of Information: Patient Description of Symptoms (Recalled from ER Triage Doc. by RN): Pt presents with c/o shortness of breath x 2 days, and chest pain that started at 1300 today. Pt states he is also having dizziness, and has a hx of sickle cell History of Present Illness HPI narrative: patient is a 29-year-old male PMHx sickle cell who presents to the ED for complaints of centrally located, sharp, stabbing chest pain that started this morning. Patient states he has lower back pain, but he normally has that. Patient states he received his blood exchanges through a port and is scheduled to have a new port placed later this month. Patient states he follows with [facility] for sickle cell. He states he has not had a sickle cell crisis in several months, previously has experienced acute chest. Related Data Home Medications ?Medication ?Instructions ?Recorded ?Confirmed apixaban 5 mg tablet (Eliquis) 5 mg PO DAILY 04/25/24 07/05/24 hydroxyurea 500 mg capsule 500 mg PO DAILY 04/25/24 oxycodone 20 mg tablet 30 mg PO Q6H 07/05/24 Allergies Allergy/AdvReac Type Severity Reaction Status Date / Time morphine Allergy Unknown Verified 07/05/24 14:54 allergy reaction <Ileana Louie DO - Last Filed: 12/16/24 23:54> History of Present Illness HPI narrative: patient is a 29-year-old male PMHx sickle cell who presents to the ED for complaints of centrally located, sharp, stabbing chest pain that started this morning. Patient states he has lower back pain, but he normally has that. Patient states he received his blood exchanges through a port and is scheduled to have a new port placed later this month. Patient states he follows with hematology for sickle cell. He states he has not had a sickle cell crisis in several months, previously has experienced acute chest. Patient denies any abdominal pain nausea vomiting or diarrhea. Patient does report some lower back pain but denies any urinary symptoms. Patient states that he has a follow-up on the with for a port to be placed for his transfusions. Patient states that he has not had any infectious symptoms including fevers cough chills or runny nose. Patient does report a mild headache that started today, patient does report a previous stroke in the past is on Eliquis. Patient denies any numbness or weakness that is unilateral but does report some generalized weakness. Patient states his headache was not acute onset, gradual in nature. [facility] <Dori Angel APRN - Last Filed: 12/16/24 20:56> [facility] Disclaimer: The information contained in this section may have been updated after the patient was seen, as this information can be updated by other users. Medical History (Updated 07/19/24 @ 12:12 by Favian Sanyd DO) Sickle cell anemia Social History (Updated 07/05/24 @ 14:57 by JUNIOR Mixon) Smoking Status: Never smoker alcohol intake: never current occupational status: unemployed and disabled Travel in the last 8 weeks?: None Have you lived/traveled outside [place] in past 30 days?: No Contact w/someone who lives/traveled outside US past 30 days?: No Exposure to someone with infectious disease in past 14 days?: No Do you have a fever (greater than 100.4 F or 38 C)?: No Have you tested positive for COVID-19?: No Exposed to someone with COVID-19 in past 14 days?: No Do you have a sore throat?: No Do you have a cough?: No Do you have any weakness?: No Do you have any diarrhea?: No Are you experiencing any unusual bleeding?: No Do you have any muscle aches/pain?: No Do you have any abdominal pain?: No Are you experiencing loss of taste or smell?: No <Dori Angel APRN - Last Filed: 12/16/24 20:56> ROS Obtained: Yes Systems reviewed as appropriate & no additional complaints except as documented <Ileana Liban, DO - Last Filed: 12/16/24 23:54> ROS Obtained: Yes All systems reviewed & no additional complaints except as documented and Yes Systems reviewed as appropriate & no additional complaints except as documented Physical Exam <Dori Angel APRN - Last Filed: 12/16/24 20:56> General General appearance: alert and other (Appears uncomfortable) Head Head exam: atraumatic Eye Eye exam: Present PERRL ENT ENT exam: Present normal exam Neck Neck exam: Present full ROM Respiratory Respiratory exam: Present normal lung sounds bilaterally Cardiovascular Cardiovascular exam: Present regular rate Back Exam Back exam: Present full ROM Neurological Exam Neurological exam: Present alert and oriented X3 Skin Skin exam: Present warm and dry <Ileana Louie, DO - Last Filed: 12/16/24 23:54> General General appearance: in no apparent distress Head Head exam: normocephalic and normal inspection Eye Eye exam: Present normal appearance Neck Neck exam: Present normal inspection Chest Chest inspection: Present normal inspection and symmetric chest wall rise; Absent tenderness Respiratory Respiratory exam: Present respiratory distress and wheezes Cardiovascular Cardiovascular exam: Present normal rhythm Abdominal Exam Abdominal exam: Present soft and distention; Absent tenderness, guarding or rebound Extremities Exam Extremities exam: Present normal inspection and full ROM Psychiatric Psychiatric exam: Present normal affect and normal mood HEART Score <Dori Angel APRN - Last Filed: 12/16/24 20:56> HEART Score HEART Score assessment performed?: No Critical Care <Dori Angel APRN - Last Filed: 12/16/24 20:56> Critical Care Time Critical Care Time: No Medical Decision Making <Dori Angel APRN - Last Filed: 12/16/24 20:56> Mir Inquiry Pt receiving controlled substance: No Vital Signs Vital Signs: 12/16/24 20:05 12/16/24 20:18 12/16/24 22:48 Temperature 98.6 F Temperature Source Oral Pulse Rate 115 H 81 Pulse Rate [Right] 101 H Respiratory Rate 18 21 Blood Pressure Blood Pressure [Right Arm] 138/96 H Blood Pressure Mean Blood Pressure Mean [Right Arm] 110 Blood Pressure Source [Right Arm] Automatic Cuff Blood Pressure Position [Right Arm] Sitting 02 Sat by Pulse Oximetry 100 96 Oxygen Delivery Method Room Air 12/16/24 23:00 12/16/24 23:00 12/16/24 23:15 Temperature Temperature Source Pulse Rate 94 H 87 Pulse Rate [Right] Respiratory Rate 12 9 L Blood Pressure 123/99 H Blood Pressure [Right Arm] Blood Pressure Mean 105 Blood Pressure Mean [Right Arm] Blood Pressure Source [Right Arm] Blood Pressure Position [Right Arm] 02 Sat by Pulse Oximetry 96 97 Oxygen Delivery Method Lab Data Labs: Lab Results 12/16/24 20:15: SARS-CoV-2 (PCR) Not detected, Influenza A Untype (PCR) Not detected, Influenza Type B (PCR) Not detected 12/16/24 20:27: WBC 12.4 H, RBC 2.60 L, Hgb 7.9 L, Hct 22.7 L, MCV 87.3, MCH 30.4, MCHC 34.8, RDW 18.4 H, Plt Count 350, MPV 8.8, Neut % (Auto) 46.7, Lymph % (Auto) 34.6, Mclennan % (Auto) 12.3 H, Eos % (Auto) 4.8, Baso % (Auto) 1.2, Neut # (Auto) 5.8, Lymph # (Auto) 4.3, Mclennan # (Auto) 1.5 H, Eos # (Auto) 0.6 H, Baso # (Auto) 0.2, Retic Count (auto) 10.4 H, Sodium 139, Potassium 4.9, Chloride 105, Carbon Dioxide 23, Anion Gap 15.9 H, BUN 14, Creatinine 0.90, Estimated Creat Clear 139, Estimated GFR 99, Est GFR ( Amer) 120, Glucose 97, Calcium 8.6, Total Bilirubin 3.5 H, AST 119 H, ALT 62, Alkaline Phosphatase 119, Lactate Dehydrogenase 808 H, Troponin I 0.02, Total Protein 9.1 H, Albumin 4.6, Globulin 4.5 H, Albumin/Globulin Ratio 1.0 L 12/16/24 20:55: Blood Type O Positive, Antibody Screen Negative 12/16/24 20:27 12/16/24 20:27 Response Orders (Tests/Meds): ED MEDICATIONS Discontinued Medications Generic Name Dose Route Start Last Admin Trade Name Freq PRN Reason Stop Dose Admin Acetaminophen 1,000 mg 12/16/24 22:38 12/16/24 22:51 Acetaminophen 500mg Tab PO 12/16/24 22:39 1,000 mg ONCE ONE Administration Diphenhydramine HCl 50 mg 12/16/24 21:07 12/16/24 21:09 Diphenhydramine 50mg/Ml Vial IV 12/16/24 21:08 50 mg ONCE ONE Administration Diphenhydramine HCl 25 mg 12/16/24 23:24 12/16/24 23:30 Diphenhydramine 50mg/Ml Vial IV 12/16/24 23:25 25 mg ONCE ONE Administration Hydromorphone HCl 1 mg 12/16/24 20:38 12/16/24 21:06 Hydromorphone 2mg/Ml Syringe IV 12/16/24 20:39 1 mg ONCE ONE Administration Hydromorphone HCl 2 mg 12/16/24 22:21 12/16/24 22:29 Hydromorphone 2mg/Ml Syringe IV 12/16/24 22:22 2 mg ONCE ONE Administration Hydromorphone HCl 2 mg 12/16/24 23:21 12/16/24 23:30 Hydromorphone 2mg/Ml Syringe IV 12/16/24 23:22 2 mg ONCE ONE Administration Sodium Chloride 1,000 mls @ 999 mls/hr 12/16/24 20:38 12/16/24 22:07 Sod Chlor 0.9% 1000ml Bag IV 12/16/24 21:38 Infused .Q1H1M ONE Infusion Sodium Chloride 1,000 mls @ 999 mls/hr 12/16/24 22:38 12/16/24 22:58 Sod Chlor 0.9% 1000ml Bag IV 12/16/24 23:38 999 mls/hr .Q1H1M ONE Administration Ketorolac Tromethamine 30 mg 12/16/24 22:38 12/16/24 22:51 Ketorolac 30mg/Ml Vial IV 12/16/24 22:39 30 mg ONCE ONE Administration Ondansetron HCl 4 mg 12/16/24 20:38 12/16/24 21:05 Ondansetron 4mg/2ml Vial IV 12/16/24 20:39 4 mg ONCE ONE Administration Oxycodone HCl 30 mg 12/16/24 22:39 12/16/24 22:58 Oxycodone 10mg Extended Release Tab.Er.12h PO 12/16/24 22:40 30 mg ONCE ONE Administration ORDERS Category Date Time Status Type and Screen Stat BBK 12/16/24 20:55 Completed XR chest portable Stat Exams 12/16/24 20:09 Completed Complete Blood Count Auto Diff Stat Lab 12/16/24 20:27 Completed Comprehensive Metabolic Panel Stat Lab 12/16/24 20:27 Completed Haptoglobin Stat Lab 12/16/24 20:27 Received LDH [Lactate Dehydrogenase] Stat Lab 12/16/24 20:27 Completed Rapid PCR Covid and Flu A/B Stat Lab 12/16/24 20:15 Completed Reticulocyte % (Auto) Stat Lab 12/16/24 20:27 Completed Troponin I Q3H Lab 12/16/24 23:21 Received Troponin I Q3H Lab 12/17/24 02:15 Ordered Troponin I Stat Lab 12/16/24 20:27 Completed UA [Urinalysis and Microscopic] Stat Lab 12/16/24 23:13 Ordered Urine Culture Stat Micro 12/16/24 23:13 Ordered MDM Narrative Medical Decision Narrative: In summary, patient is a 29-year-old male PMHx sickle cell who presents to the ED for complaints of centrally located, sharp, stabbing chest pain that started this morning. Patient states he has lower back pain, but he normally has that. Patient states he received his blood exchanges through a port and is scheduled to have a new port placed later this month. Patient states he follows with [facility] for sickle cell. He states he has not had a sickle cell crisis in several months, previously has experienced acute chest. Upon initial evaluation, patient appears uncomfortable, he is hemodynamically stable. Denies fever, body aches, headache, abdominal pain, nausea, vomiting. Differential diagnosis includes acute chest, sickle cell crisis, low hemoglobin, infectious process, pneumothorax, among others. Discussed with patient we will proceed with labs, chest x-ray and symptomatically managed with normal saline, Zofran and Dilaudid. Care transferred to attending, Dr. Louie pending workup. <Ileana Louie, - Last Filed: 12/16/24 23:54> Medical Records Medical records reviewed: Yes I reviewed the patient's medical records. Vital Signs Vital Signs: 12/16/24 20:05 12/16/24 20:18 12/16/24 22:48 Temperature 98.6 F Temperature Source Oral Pulse Rate 115 H 81 Pulse Rate [Right] 101 H Respiratory Rate 18 21 Blood Pressure Blood Pressure [Right Arm] 138/96 H Blood Pressure Mean Blood Pressure Mean [Right Arm] 110 Blood Pressure Source [Right Arm] Automatic Cuff Blood Pressure Position [Right Arm] Sitting 02 Sat by Pulse Oximetry 100 96 Oxygen Delivery Method Room Air 12/16/24 23:00 12/16/24 23:00 12/16/24 23:15 Temperature Temperature Source Pulse Rate 94 H 87 Pulse Rate [Right] Respiratory Rate 12 9 L Blood Pressure 123/99 H Blood Pressure [Right Arm] Blood Pressure Mean 105 Blood Pressure Mean [Right Arm] Blood Pressure Source [Right Arm] Blood Pressure Position [Right Arm] 02 Sat by Pulse Oximetry 96 97 Oxygen Delivery Method Lab Data Lab results reviewed: Yes I reviewed the patient's lab results. Labs: Lab Results 12/16/24 20:15: SARS-CoV-2 (PCR) Not detected, Influenza A Untype (PCR) Not detected, Influenza Type B (PCR) Not detected 12/16/24 20:27: WBC 12.4 H, RBC 2.60 L, Hgb 7.9 L, Hct 22.7 L, MCV 87.3, MCH 30.4, MCHC 34.8, RDW 18.4 H, Plt Count 350, MPV 8.8, Neut % (Auto) 46.7, Lymph % (Auto) 34.6, Mclennan % (Auto) 12.3 H, Eos % (Auto) 4.8, Baso % (Auto) 1.2, Neut # (Auto) 5.8, Lymph # (Auto) 4.3, Mclennan # (Auto) 1.5 H, Eos # (Auto) 0.6 H, Baso # (Auto) 0.2, Retic Count (auto) 10.4 H, Sodium 139, Potassium 4.9, Chloride 105, Carbon Dioxide 23, Anion Gap 15.9 H, BUN 14, Creatinine 0.90, Estimated Creat Clear 139, Estimated GFR 99, Est GFR ( Amer) 120, Glucose 97, Calcium 8.6, Total Bilirubin 3.5 H, AST 119 H, ALT 62, Alkaline Phosphatase 119, Lactate Dehydrogenase 808 H, Troponin I 0.02, Total Protein 9.1 H, Albumin 4.6, Globulin 4.5 H, Albumin/Globulin Ratio 1.0 L 12/16/24 20:55: Blood Type O Positive, Antibody Screen Negative Response Orders (Tests/Meds): ED MEDICATIONS Discontinued Medications Generic Name Dose Route Start Last Admin Trade Name Yvonne PRN Reason Stop Dose Admin Acetaminophen 1,000 mg 12/16/24 22:38 12/16/24 22:51 Acetaminophen 500mg Tab PO 12/16/24 22:39 1,000 mg ONCE ONE Administration Diphenhydramine HCl 50 mg 12/16/24 21:07 12/16/24 21:09 Diphenhydramine 50mg/Ml Vial IV 12/16/24 21:08 50 mg ONCE ONE Administration Diphenhydramine HCl 25 mg 12/16/24 23:24 12/16/24 23:30 Diphenhydramine 50mg/Ml Vial IV 12/16/24 23:25 25 mg ONCE ONE Administration Hydromorphone HCl 1 mg 12/16/24 20:38 12/16/24 21:06 Hydromorphone 2mg/Ml Syringe IV 12/16/24 20:39 1 mg ONCE ONE Administration Hydromorphone HCl 2 mg 12/16/24 22:21 12/16/24 22:29 Hydromorphone 2mg/Ml Syringe IV 12/16/24 22:22 2 mg ONCE ONE Administration Hydromorphone HCl 2 mg 12/16/24 23:21 12/16/24 23:30 Hydromorphone 2mg/Ml Syringe IV 12/16/24 23:22 2 mg ONCE ONE Administration Sodium Chloride 1,000 mls @ 999 mls/hr 12/16/24 20:38 12/16/24 22:07 Sod Chlor 0.9% 1000ml Bag IV 12/16/24 21:38 Infused .Q1H1M ONE Infusion Sodium Chloride 1,000 mls @ 999 mls/hr 12/16/24 22:38 12/16/24 22:58 Sod Chlor 0.9% 1000ml Bag IV 12/16/24 23:38 999 mls/hr .Q1H1M ONE Administration Ketorolac Tromethamine 30 mg 12/16/24 22:38 12/16/24 22:51 Ketorolac 30mg/Ml Vial IV 12/16/24 22:39 30 mg ONCE ONE Administration Ondansetron HCl 4 mg 12/16/24 20:38 12/16/24 21:05 Ondansetron 4mg/2ml Vial IV 12/16/24 20:39 4 mg ONCE ONE Administration Oxycodone HCl 30 mg 12/16/24 22:39 12/16/24 22:58 Oxycodone 10mg Extended Release Tab.Er.12h PO 12/16/24 22:40 30 mg ONCE ONE Administration ORDERS Category Date Time Status Type and Screen Stat BBK 12/16/24 20:55 Completed XR chest portable Stat Exams 12/16/24 20:09 Completed Complete Blood Count Auto Diff Stat Lab 12/16/24 20:27 Completed Comprehensive Metabolic Panel Stat Lab 12/16/24 20:27 Completed Haptoglobin Stat Lab 12/16/24 20:27 Received LDH [Lactate Dehydrogenase] Stat Lab 12/16/24 20:27 Completed Rapid PCR Covid and Flu A/B Stat Lab 12/16/24 20:15 Completed Reticulocyte % (Auto) Stat Lab 12/16/24 20:27 Completed Troponin I Q3H Lab 12/16/24 23:21 Received Troponin I Q3H Lab 12/17/24 02:15 Ordered Troponin I Stat Lab 12/16/24 20:27 Completed UA [Urinalysis and Microscopic] Stat Lab 12/16/24 23:13 Ordered Urine Culture Stat Micro 12/16/24 23:13 Ordered MDM Narrative Medical Decision Narrative: In summary, patient is a 29-year-old male PMHx sickle cell who presents to the ED for complaints of centrally located, sharp, stabbing chest pain that started this morning. Patient states he has lower back pain, but he normally has that. Patient states he received his blood exchanges through a port and is scheduled to have a new port placed later this month. Patient states he follows with [facility] for sickle cell. He states he has not had a sickle cell crisis in several months, previously has experienced acute chest. Upon initial evaluation, patient appears uncomfortable, he is hemodynamically stable. Denies fever, body aches, headache, abdominal pain, nausea, vomiting. Differential diagnosis includes acute chest, sickle cell crisis, low hemoglobin, infectious process, pneumothorax, among others. Discussed with patient we will proceed with labs, chest x-ray and symptomatically managed with normal saline, Zofran and Dilaudid. Care transferred to attending, Dr. Louie pending workup. Ileana Louie, DO I assumed care of the patient at 2200. On my assessment, patient had a soft, nontender abdomen. Patient had a nonfocal neuroexam no concern for CVA or intracranial process at this time. UA was ordered to evaluate for infection given back pain. Patient's labs were reviewed and interpreted by myself: CBC showed mild leukocytosis of 12, hemoglobin was at patient's baseline of 7.9. Reticulocyte count 10.4. CMP was unremarkable mildly elevated LDH at 800. Respiratory panel was negative. Chest x-ray was reviewed and interpreted by myself and showed no acute for consolidation, pneumothorax, pleural effusion or other acute cardiopulmonary process. Patient states that his home regimen is 30 of oxycodone Q6. Patient states that when he is seen in the hospital he typically required to have Dilaudid with Benadryl for symptoms. Patient states that he has had to be admitted multiple times. Patient initially received Dilaudid on arrival on repeat assessment, the patient's pain was still 10 out of 10 therefore repeat dosing of Dilaudid and Benadryl was ordered. Patient was additionally given IV fluids and Toradol for his headache. On second reassessment, patient stated that his headache was improving. Patient stated that his pain was still severe. I discussed the case with the hospitalist here, they stated they do not admit sickle cell patients as patient will likely need consulting services such as hematology. [facility] transfer center was contacted. [facility] excepted patient to [facility] by Dr. Elmer Damon.
[2024-12-16 20:45] LABS: Hematocrit 22.7 % (42.0-52.0); Hemoglobin 7.9 g/dL (14.1-18.0); Immature Granulocytes % 0.4 %; Mean Corpuscular HGB Conc 34.8 g/dL (31.8-35.4); Mean Corpuscular Hemoglobin 30.4 pg (27.0-31.2); Mean Corpuscular Volume 87.3 fl (80-94); Nucleated Red Blood Cells % 0.4 %; Platelet Count 350 K/mm3 (142-424); Red Blood Count 2.60 M/mm3 (4.60-6.20); Red Cell Distribution Width-SD 57.1 fL; White Blood Count 12.4 K/mm3 (4.8-10.8)
[2024-12-16 20:47] LABS: Reticulocyte % (Auto) 10.4 % (0.9-3.2)
[2024-12-16 20:54] LABS: Alanine Aminotransferase 62 U/L (12-78); Albumin Level 4.6 g/dl (3.5-5.0); Albumin/Globulin Ratio 1.0 (1.1-1.8); Alkaline Phosphatase 119 U/L (38-126); Anion Gap 15.9 mEq/L (5-15); Aspartate Amino Transferase 119 U/L (17-59); Bilirubin,Total 3.5 mg/dl (0.2-1.3); Blood Urea Nitrogen 14 mg/dl (9-20); Calcium 8.6 mg/dl (8.4-10.2); Carbon Dioxide 23 mmol/L (22.0-30.0); Chloride 105 mmol/L (98-107); Creatinine Clearance Estimated 139 mL/min (50-200); Creatinine,Serum 0.90 mg/dl (0.66-1.25); Estimated Glomerular Filt Rate 99 ml/min (>60); GFR (African American) 120 ML/MIN (>60); Globulin 4.5 g/dL (1.3-3.2); Glucose 97 mg/dl (74-100); Potassium 4.9 mmoL/L (3.5-5.1); Sodium 139 mmol/L (136-145); Total Protein,Serum 9.1 g/dl (6.3-8.2)
[2024-12-16] MEDS: 0.9 % SODIUM CHLORIDE 1000ML 1,000 ML 999 ML IV ×2 (21:04→22:58)
[2024-12-16] MEDS: ONDANSETRON 4MG/2ML VIAL 4 MG IV (21:05)
[2024-12-16 21:06] LABS: Troponin I 0.02 ng/ml (0.00-0.034)
[2024-12-16] MEDS: HYDROMORPHONE 2MG/ML SYRINGE 1 MG IV (21:06)
[2024-12-16] MEDS: HYDROMORPHONE 2MG/ML SYRINGE 2 MG IV ×2 (22:29→23:30)
[2024-12-16] MEDS: KETOROLAC 30MG/ML VIAL 30 MG IV (22:51)
[2024-12-16] MEDS: ACETAMINOPHEN 500MG TAB 1000 MG PO (22:51)
[2024-12-16] MEDS: OXYCODONE 10MG EXTENDED RELEASE TAB.ER.12H 30 MG PO (22:58)
--- NOTE | 2024-12-16 23:27 | PC.NURSE ---
called [facility] for transfer, they asked if there were images and said they would call back.
[2024-12-16 23:52] LABS: Troponin I 0.02 ng/ml (0.00-0.034)
[2024-12-17 00:06] VITALS: BP 128/103; PULSE 87; RESP 12; O2SAT 94
--- NOTE | 2024-12-17 00:08 | PC.NURSE ---
Report called to Hemanth GUSMAN at [facility]
--- NOTE | 2024-12-17 00:39 | PC.NURSE ---
Report given to EMS
[2024-12-17 00:46] VITALS: BP 128/103; PULSE 89; RESP 16; TEMP 36.6; O2SAT 98
== END 2024-12-17 00:47 ==
PROVIDERS: Nurse Practitioner; Emergency Provider Student in an Organized Health Care Education/Training Program
DX: R07.89 Other chest pain (principal); R51.9 Headache, unspecified; D57.1 Sickle-cell disease without crisis; R06.02 Shortness of breath; R42 Dizziness and giddiness; M54.50 Low back pain, unspecified
CPT/HCPCS: 71045; 80053; 83010; 83615; 84484; 85025; 85044; 86850; 87636; 93005; 96361; 96374; 96375; 96376; 99285; J1171; J1200; J1885; J2405; J7030

== ENCOUNTER 2025-02-05 09:51 | Emergency (ER) | payer OTHER, SELFPAY ==
[2025-02-05] VITALS (8 sets, daily range): BP systolic 117–168; BP diastolic 63–127; PULSE 75–103; RESP 14–18; TEMP 36.7; O2SAT 96–100; BMI 33.6
--- NOTE | 2025-02-05 10:01 | ECG_ITS ---
APPROVED REPORT Exam: Resting ECG HR:114 bpm ECG Measurements Heart Rate 114 AXES DC 130 P 73 QRSd 85 QRS 87 QT 339 T 64 QTc 407 Conclusion SINUS TACHYCARDIA POSSIBLE RIGHT ATRIAL ENLARGEMENT [0.25mV P-WAVE] ABNORMAL RHYTHM ECG UNCONFIRMED REPORT Electronically signed by : Hansel Castro, 02/05/2025 14:05:31
--- NOTE | 2025-02-05 10:02 | HMH.EDGENADL ---
Discharge Plan Disposition Patient Disposition: Xfer Short-Term Hosp Condition: Serious Prescriptions Prescriptions: No Action hydroxyurea 500 mg capsule 500 mg PO DAILY Eliquis 5 mg tablet 5 mg PO DAILY oxycodone 20 mg tablet 30 mg PO Q6H Referrals Follow up/Referrals: Favian Sandy DO [Primary Care Provider, Family Practice] - See instructions Clinical Impressions Clinical Impression: Sepsis, Sickle cell crisis Stand Alone Forms Stand Alone Forms: Transfer Record - ED Print Language Print Language: Kiswahili Discharge ED Provider: Hansel Castro General Adult HPI General Chief complaint: PAIN Stated complaint: fever, chest and back pain Time Seen by Provider: 02/05/25 10:02 History of Present Illness HPI narrative: Patient is a 29-year-old male with history of sickle cell disease, and frequent sickle cell pain crises. He presents today due to concerns for back pain chest pain and fever. He reports to me that he was discharged from the [facility] 4 days ago, and had a tunneled line placed to receive IV or ertapenem and daptomycin at home. He reports that he had an infection at this time that was difficult to treat . He reports his pain was well-controlled on discharge, but he has not been able to get his oxycodone filled at home which is usually Oxy 30 3 times daily. He reports that beginning last night he began to feel feverish again with chills, cramping left-sided flank pain radiating up into his left chest and anteriorly. He reports that this is the same pain that is consistent with his previous pain crises and reports that it was similar pain in characteristic to when he presented to last time, but he reports that it is more severe because he has not had his pain medicines at home. He reports a slight productive cough. Reports nausea without vomiting. Denies any anterior abdominal pain. Reports some dysuria without hematuria. Reports that he thinks that he is urinating less. Denies concern for STDs. Related Data Home Medications ?Medication ?Instructions ?Recorded ?Confirmed apixaban 5 mg tablet (Eliquis) 5 mg PO DAILY 04/25/24 07/05/24 hydroxyurea 500 mg capsule 500 mg PO DAILY 04/25/24 07/05/24 oxycodone 20 mg tablet 30 mg PO Q6H 07/05/24 07/05/24 Allergies Allergy/AdvReac Type Severity Reaction Status Date / Time morphine Allergy Unknown Verified 07/05/24 14:54 allergy reaction [facility] Disclaimer: The information contained in this section may have been updated after the patient was seen, as this information can be updated by other users. Medical History (Updated 02/05/25 @ 11:44 by Hansel Castro MD) Sickle cell anemia Social History (Updated 07/05/24 @ 14:57 by JUNIOR Mixon) Smoking Status: Never smoker alcohol intake: never current occupational status: unemployed and disabled Travel in the last 8 weeks?: None Have you lived/traveled outside US in past 30 days?: No Contact w/someone who lives/traveled outside US past 30 days?: No Exposure to someone with infectious disease in past 14 days?: No Do you have a fever (greater than 100.4 F or 38 C)?: No Have you tested positive for COVID-19?: No Exposed to someone with COVID-19 in past 14 days?: No Do you have a sore throat?: No Do you have a cough?: No Do you have any weakness?: No Do you have any diarrhea?: No Are you experiencing any unusual bleeding?: No Do you have any muscle aches/pain?: No Do you have any abdominal pain?: No Are you experiencing loss of taste or smell?: No ROS Obtained: Yes All systems reviewed & no additional complaints except as documented Physical Exam General General appearance: alert and in distress Head Head exam: atraumatic and normocephalic Eye Eye exam: Present PERRL and EOMI ENT ENT exam: Present normal oropharynx and mucous membranes dry Neck Neck exam: Present full ROM and trachea midline Chest Chest inspection: Present symmetric chest wall rise Respiratory Respiratory exam: Present normal lung sounds bilaterally; Absent respiratory distress, stridor or accessory muscle use Cardiovascular Cardiovascular exam: Present regular rate and tachycardia Abdominal Exam Abdominal exam: Present soft and tenderness (Diffuse mild); Absent distention, guarding or rebound Extremities Exam Extremities exam: Present full ROM Back Exam Back exam: Present tenderness (Paraspinal thoracic and lumbar), CVA tenderness (R) and CVA tenderness (L) Neurological Exam Neurological exam: Present alert, oriented X3 and CN II-XII intact; Absent motor sensory deficit Psychiatric Psychiatric exam: Present anxious Skin Skin exam: Present warm, dry and other (2-second capillary refill) Medical Decision Making Medical Records Screening: Per USPSTF and CDC recommendations, given the prevalence of disease in our region, it is our hospital?s policy to screen for HIV and viral Hepatitis for all patients aged 18 and over and those with ongoing risk factors. Mir Inquiry Pt receiving controlled substance: Yes Mir was queried for this patient: Yes Risks and benefits of using a controlled substance: were discussed with pt by me Vital Signs: 02/05/25 10:01 02/05/25 10:01 02/05/25 10:15 Temperature 98.1 F Temperature Source Oral Pulse Rate 84 100 H Pulse Rate [Radial] 75 Respiratory Rate 18 Blood Pressure 166/127 H 144/102 H Blood Pressure [Right Arm] 139/63 Blood Pressure Mean Blood Pressure Mean [Right Arm] 88 Blood Pressure Source [Right Arm] Automatic Cuff Blood Pressure Position [Right Arm] Sitting 02 Sat by Pulse Oximetry 100 100 99 Oxygen Delivery Method Room Air Room Air Room Air Oxygen Flow Rate (LPM) 02/05/25 10:30 02/05/25 10:46 Temperature Temperature Source Pulse Rate 102 H Pulse Rate [Radial] Respiratory Rate Blood Pressure 146/98 H 168/91 H Blood Pressure [Right Arm] Blood Pressure Mean 114 Blood Pressure Mean [Right Arm] Blood Pressure Source [Right Arm] Blood Pressure Position [Right Arm] 02 Sat by Pulse Oximetry 98 Oxygen Delivery Method Nasal Cannula Oxygen Flow Rate (LPM) 2 Lab Data Lab Results 02/05/25 10:20: VBG pH 7.40, VBG pCO2 38.5, VBG pO2 144.8 H, VBG HCO3 23.5, VBG Total CO2 24.7, VBG O2 Saturation 98.8 H, VBG Base Excess -1.2, VBG Lactic Acid 1.5, Lactate 0.8 02/05/25 10:26: WBC 23.9 H*, RBC 3.28 L, Hgb 9.7 L, Hct 29.3 L, MCV 89.3, MCH 29.6, MCHC 33.1, RDW 18.6 H, Plt Count 550 H, MPV 9.5, Neut % (Auto) 83.4 H, Lymph % (Auto) 7.9 L, [place] % (Auto) 6.9, Eos % (Auto) 0.4, Baso % (Auto) 0.8, Neut # (Auto) 19.9 H, Lymph # (Auto) 1.9, [place] # (Auto) 1.7 H, Eos # (Auto) 0.1, Baso # (Auto) 0.2, Total Counted 100, Neutrophils % (Manual) 86 H, Lymphocytes % (Manual) 9 L, Monocytes % (Manual) 5, Platelet Estimate Slight increase, RBC Morphology Normal, Retic Count (auto) 4.6 H, Sodium 140, Potassium 3.9, Chloride 102, Carbon Dioxide 25, Anion Gap 16.9 H, BUN 10, Creatinine 0.60 L, Estimated Creat Clear 219, Estimated GFR 158, Est GFR ( Amer) 191, Glucose 110 H, Calcium 8.6, Magnesium 1.9, Total Bilirubin 3.3 H, AST 77 H, ALT 48, Alkaline Phosphatase 93, Troponin I 0.02, Total Protein 10.3 H, Albumin 4.6, Globulin 5.7 H, Albumin/Globulin Ratio 0.8 L, Lipase 34 02/05/25 10:26 02/05/25 10:26 Orders (Tests/Meds): ED MEDICATIONS Generic Name Dose Route Start Last Admin Trade Name Freq PRN Reason Stop Dose Admin Ceftriaxone Sodium 2 gm/ 100 mls @ 200 mls/hr 02/05/25 11:15 Sodium Chloride IV 02/15/25 11:14 Q24H TORRES Sodium Chloride 1,000 mls @ 999 mls/hr 02/05/25 11:21 Sod Chlor 0.9% 1000ml Bag IV 02/05/25 12:21 .Q1H1M ONE Discontinued Medications Generic Name Dose Route Start Last Admin Trade Name Freq PRN Reason Stop Dose Admin Diphenhydramine HCl 25 mg 02/05/25 10:12 02/05/25 10:18 Diphenhydramine 50mg/Ml Vial IV 02/05/25 10:13 25 mg ONCE ONE Administration Diphenhydramine HCl 25 mg 02/05/25 11:06 02/05/25 11:11 Diphenhydramine 50mg/Ml Vial IV 02/05/25 11:07 25 mg ONCE ONE Administration Hydromorphone HCl 1 mg 02/05/25 10:12 02/05/25 10:19 Hydromorphone 2mg/Ml Syringe IV 02/05/25 10:13 1 mg ONCE ONE Administration Hydromorphone HCl 2 mg 02/05/25 11:06 02/05/25 11:11 Hydromorphone 2mg/Ml Syringe IV 02/05/25 11:07 2 mg ONCE ONE Administration Sodium Chloride 1,000 mls @ 999 mls/hr 02/05/25 10:19 02/05/25 10:42 Sod Chlor 0.9% 1000ml Bag IV 02/05/25 11:19 999 mls/hr .Q1H1M ONE Administration Ondansetron HCl 4 mg 02/05/25 10:12 02/05/25 10:19 Ondansetron 4mg/2ml Vial IV 02/05/25 10:13 4 mg ONCE ONE Administration Oxycodone HCl 30 mg 02/05/25 10:23 02/05/25 10:41 Oxycodone 5mg Immediate Release Tablet PO 02/05/25 10:24 30 mg ONCE ONE Administration ORDERS Category Date Time Status Type and Screen Stat BBK 02/05/25 10:32 Results XR chest portable Stat Exams 02/05/25 10:20 Taken CBC w/Auto Diff [Complete Blood Count Auto Diff] Stat Lab 02/05/25 10:26 Completed CMP [Comprehensive Metabolic Panel] Stat Lab 02/05/25 10:26 Completed Lactic Acid Stat Lab 02/05/25 10:20 Completed Lipase Stat Lab 02/05/25 10:26 Completed MAG [Magnesium] Stat Lab 02/05/25 10:26 Completed Reticulocyte % (Auto) Stat Lab 02/05/25 10:26 Completed Trop I [Troponin I] Stat Lab 02/05/25 10:26 Completed Troponin I Q3H Lab 02/05/25 13:30 Ordered Troponin I Q3H Lab 02/05/25 16:30 Ordered UA [Urinalysis and Microscopic] Stat Lab 02/05/25 10:21 Ordered Blood Culture Stat Micro 02/05/25 10:26 Received Urine Culture Stat Micro 02/05/25 10:21 Ordered VBG [Venous Blood Gas] Stat RT 02/05/25 10:20 Completed ECG Data Tracing #1: Independently interpreted by myself demonstrate sinus tachycardia without obvious acute ischemic ST change. T wave inversions in V2 and V3 without depression or obvious reciprocal changes. Will continue to monitor on telemetry Medical Decision Narrative: In summary, this 29-year-old male presents to the emergency department today with back pain and chest pain. On initial evaluation patient is afebrile, nontachycardic, hypertension of. On exam, he is warm, with full pulses that are equal in all extremities. However he does show some signs of diminished perfusion with a 2-second capillary refill and dry mucous membranes. Given his fever and leukocytosis in conjunction with this, high suspicion for sepsis. He is already on daptomycin and ertapenem at home. Will empirically give Rocephin here and will consult with hematology for further workup while on antibiotics. Will begin crystalloid resuscitation. His heart is regular rate and rhythm his lung sounds are clear to auscultation bilaterally with no increased work of breathing and saturating 100% on room air low suspicion for acute chest syndrome, but will screen with troponins and chest x-ray. Hematologic labs, blood cultures urine cultures. Aggressive pain control. I considered the possibility of vaso-occlusive crisis like a CVA, but given his reassuring neurologic exam and absence of headaches, this is felt to be less likely. I considered PE or intra-abdominal infection, though given that his symptoms are consistent with his prior pain crises and exacerbations, this is felt to be less likely and so immediate workup for these etiologies was deferred and we will focus on treating his pain and reassessment frequently.. Meeting sepsis criteria, will complete 30 cc/kg fluid resuscitation. Sepsis reevaluation performed and demonstrates improved capillary refill. Patient received Dilaudid, Benadryl, oxy for treatment. Labs personally reviewed demonstrate leukocytosis, mildly elevated troponin to 0.02. I independently interpreted the chest x-ray to demonstrate no acute cardiopulmonary abnormality. I had an interactive discussion with Sofía FINN with the transfer center. She accepted the patient to [facility] emergency department for an ED to ED transfer. Patient will be transferred in hemodynamically stable condition.. On reassessment patient reports some improvement in pain. Patient's prescriptions were reviewed and oxycodone 30 mg 4 times daily . Of note, social determinants of health include frequent hospital visits, inability to see specialist in a timely manner. Critical Care Critical Care Time Critical Care Time: Yes Attestation: On 02/05/25, the high probability of a clinically significant, sudden or life threatening deterioration of the following system(s) required my full and direct attention, intervention and personal management. The time I documented below is in addition to time spent performing reported procedures but includes the following listed in this critical care notation. Total Time Total Critical Care Time: 33
--- OUTSIDE RECORDS SUMMARY | 2025-02-05 10:09 | XMS_ITS | Clinical Summary ---
Author Organization [facility] Address [address] [place] [address] Phone Care Team Providers Care Information Assurance Analyst Name Role Phone Unavailable Unavailable Conditions or Problems No information available. Medications No information available. Medications Administered No information available. Allergies, Adverse Reactions, Alerts No information available. Results No information available. Plan of Care No information available. Procedures No information available. Vital Signs No information available. Immunizations No information available. Advance Directives No information available.
[2025-02-05] MEDS: ONDANSETRON 4MG/2ML VIAL 4 MG IV (10:19)
[2025-02-05] MEDS: HYDROMORPHONE 2MG/ML SYRINGE 1 MG IV (10:19)
--- NOTE | 2025-02-05 10:20 | XR_ITS ---
FINAL REPORT CLINICAL HISTORY: cp, current blood infection, History of sickle cell anemia, fever since last night COMPARISON: 12/16/2024 FINDINGS: A portable view of the chest was obtained. There has been interval placement of small caliber right internal jugular central line. Catheter is curled in the region of the SVC with the tip ascending and the internal jugular vein. Cardiac and mediastinal silhouettes are within normal limits. The lungs are clear. There is no pleural effusion or pneumothorax. IMPRESSION: Malpositioned central line. Recommend repositioning. Otherwise, no acute cardiopulmonary process. Reviewed, Interpreted and Dictated by Cyndie Ayon MD Transcribed by Jayne Maddox Authenticated and [facility]
[2025-02-05] MEDS: OXYCODONE 5MG IMMEDIATE RELEASE TABLET 30 MG PO (10:41)
[2025-02-05] MEDS: 0.9 % SODIUM CHLORIDE 1000ML 1,000 ML 999 ML IV (10:42)
[2025-02-05 10:49] LABS: Lactate Venous 1.5 mmol/L (0.4-2.0); VBG HCO3 23.5 mmol/L (23-30); VBG PCO2 38.5 mmol/L (35-51); VBG PH 7.40 mmol/L (7.31-7.41); VBG PO2 144.8 mmol/L (28-40)
[2025-02-05 10:50] LABS: Hematocrit 29.3 % (42.0-52.0); Hemoglobin 9.7 g/dL (14.1-18.0); Immature Granulocytes % 0.6 %; Mean Corpuscular HGB Conc 33.1 g/dL (31.8-35.4); Mean Corpuscular Hemoglobin 29.6 pg (27.0-31.2); Mean Corpuscular Volume 89.3 fl (80-94); Nucleated Red Blood Cells % 0.1 %; Platelet Count 550 K/mm3 (142-424); Red Blood Count 3.28 M/mm3 (4.60-6.20); Red Cell Distribution Width-SD 57.8 fL; White Blood Count 23.9 K/mm3 (4.8-10.8)
[2025-02-05 10:53] LABS: Reticulocyte % (Auto) 4.6 % (0.9-3.2)
[2025-02-05 10:59] LABS: Albumin Level 4.6 g/dl (3.5-5.0); Chloride 102 mmol/L (98-107); Potassium 3.9 mmoL/L (3.5-5.1); Sodium 140 mmol/L (136-145)
[2025-02-05 11:01] LABS: Alanine Aminotransferase 48 U/L (12-78); Aspartate Amino Transferase 77 U/L (17-59); Blood Urea Nitrogen 10 mg/dl (9-20); Creatinine Clearance Estimated 219 mL/min (50-200); Creatinine,Serum 0.60 mg/dl (0.66-1.25); Estimated Glomerular Filt Rate 158 ml/min (>60); GFR (African American) 191 ML/MIN (>60)
[2025-02-05 11:02] LABS: Albumin/Globulin Ratio 0.8 (1.1-1.8); Alkaline Phosphatase 93 U/L (38-126); Anion Gap 16.9 mEq/L (5-15); Bilirubin,Total 3.3 mg/dl (0.2-1.3); Calcium 8.6 mg/dl (8.4-10.2); Carbon Dioxide 25 mmol/L (22.0-30.0); Globulin 5.7 g/dL (1.3-3.2); Glucose 110 mg/dl (74-100); Lipase 34 U/L (23-300); Magnesium 1.9 mg/dl (1.6-2.3); Total Protein,Serum 10.3 g/dl (6.3-8.2)
[2025-02-05] MEDS: HYDROMORPHONE 2MG/ML SYRINGE 2 MG IV ×2 (11:11→12:03)
[2025-02-05 11:14] LABS: Troponin I 0.02 ng/ml (0.00-0.034)
--- NOTE | 2025-02-05 11:26 | PC.NURSE ---
called for possible transfer, power shared images
[2025-02-05 11:32] LABS: RBC Morphology Normal; Total Cells Counted 100
--- NOTE | 2025-02-05 11:33 | PC.NURSE ---
Dr. Castro speaking to [facility] now
--- NOTE | 2025-02-05 11:54 | PC.NURSE ---
Report given to NASEEM Santamaria at [facility].
--- NOTE | 2025-02-05 11:57 | PC.NURSE ---
EMS notified of transfer.
[2025-02-05 23:13] LABS: Acinetobacter calcoaceticus-ba Not Detected; Bacteroides fragilis Not Detected; Candida auris Not Detected; Candida glabrata Not Detected; Enterobacterales Not Detected; Enterococcus faecalis Not Detected; Enterococcus faecium Not Detected; Klebsiella aerogenes Not Detected; Klebsiella pneumoniae grp Not Detected; Proteus spp. Not Detected; Salmonella spp. Not Detected; Serratia marcescens Not Detected; Staphylococcus epidermidis Not Detected; Staphylococcus lugdunensis Not Detected; Staphylococcus spp. Not Detected; Stenotrophomonas maltophilia Detected; Streptococcus agalactiae(GrpB) Not Detected; Streptococcus pyogenes Group A Not Detected; Streptococcus spp. Not Detected
--- NOTE | 2025-02-05 23:47 | PC.NURSE ---
spoke with NASEEM Mchugh at [phone] and informed of blood culture results. results faxed as well
[2025-02-06 13:43] LABS: Acinetobacter calcoaceticus-ba Not Detected; Bacteroides fragilis Not Detected; Candida auris Not Detected; Candida glabrata Not Detected; Enterobacterales Not Detected; Enterococcus faecalis Not Detected; Enterococcus faecium Not Detected; Klebsiella aerogenes Not Detected; Klebsiella pneumoniae grp Not Detected; Proteus spp. Not Detected; Salmonella spp. Not Detected; Serratia marcescens Not Detected; Staphylococcus epidermidis Not Detected; Staphylococcus lugdunensis Not Detected; Staphylococcus spp. Not Detected; Stenotrophomonas maltophilia Not Detected; Streptococcus agalactiae(GrpB) Not Detected; Streptococcus pyogenes Group A Not Detected; Streptococcus spp. Not Detected
== END 2025-02-05 13:09 | disposition short-term general hospital (02) ==
PROVIDERS: Emergency Provider Emergency Medicine; PCP Internal Medicine
DX: A41.9 Sepsis, unspecified organism (principal); B95.4 Other streptococcus as the cause of diseases classified elsewhere; B95.7 Other staphylococcus as the cause of diseases classified elsewhere; D57.00 Hb-SS disease with crisis, unspecified; R07.9 Chest pain, unspecified; R10.A2 Flank pain, left side; R00.0 Tachycardia, unspecified; R50.81 Fever presenting with conditions classified elsewhere
CPT/HCPCS: 71045; 80053; 82803; 83605; 83690; 83735; 84484; 85007; 85025; 85044; 86850; 87040; 87077; 87154; 87186; 93005; 96361; 96365; 96366; 96375; 96376; 99285; 99291; J0696; J1171; J1200; J2405; J7030

== ENCOUNTER 2025-02-25 20:36 | Emergency (ER) | payer OTHER, SELFPAY ==
--- OUTSIDE RECORDS SUMMARY | 2025-02-21 10:50 | XMS_ITS | Encounter Summary ---
Author Organization [facility] Address [address] [place] [address] Care Team Providers Care Top Coater Name Role Phone Favian Sandy Primary Care Provider [phone] Navya Man MD Unavailable Annette Gomes RN Unavailable Unavailable Reason for Visit * Reason Comments Chronic hepatitis C without hepatic coma (CMS/HCC) * Consultation (Routine) - Closed Specialty Diagnoses / Procedures Referred By Contac t Referred To Contact Hepatology Diagnoses Chronic hepatitis C without hepatic coma Aric Lee MD [address] [place] [address] Phone: tel: fax: Referral ID Status Reason Start Date Expiration Date V isits Requested Visits Authorized [id number] Closed Specialty Services Required 01/04/2025 07/06/2026 1 1 Encounter Details Date Type Department Care Team (Late st Contact Info) Description 02/21/2025 10:50 AM EST Office Visit [facility] [address] [place] [address] Diana Alonzo PA [address] [place] [address] Social History Tobacco Use Types Packs/Day Years Used Date Smoking Tobacco: Former Cigarettes 0.3 3 2 013 - 2016 Passive Smoke Exposure: Past Smokeless Tobacco: Never Alcohol Use Standard Drinks/Week Comments Never 0 (1 standard drink = 0.6 oz pur e alcohol) PHQ-2 Answer Date Recorded Patient Health Questionnaire-2 Score 0 02/21/2025 PHQ-9 Answer Date Recorded Patient Health Questionnaire-9 Score 0 02/21/2025 Humiliation, Afraid, Rape, and Kick questionnair e Answer Date Recorded Within the last year, have y ou been afraid of your partner or ex-partner? No 02/06/2025 Within the last year, have y ou been humiliated or emotionally abused in other ways by your partner or ex-partner? No Within the last year, have y ou been kicked, hit, slapped, or otherwise physically hurt by your partner or ex-partner? No 02/06/2025 Within the last year, have y ou been raped or forced to have any kind of sexual activity by your partner or ex-partner? No 02/06/2025 AUDIT-C Answer Date Recorded Q1: How often do you have a drink containing alcohol? Never 12/17/2024 Q2: How many drinks containi ng alcohol do you have on a typical day when you are drinking? Patient does not drink Q3: How often do you have si x or more drinks on one occasion? Never 12/17/2024 Overall Financial Resource Strain (CARDIA) Answe r Date Recorded How hard is it for you to pa y for the very basics like food, housing, medical care, and heating? Not very hard 10/05/2024 Hunger Vital Sign Answer Date Recorded Within the past 12 months, y ou worried that your food would run out before you got the money to buy more. Never true 02/07/20 25 Within the past 12 months, t he food you bought just didn't last and you didn't have money to get more. Never true 02/06/2025 PRAPARE - Transportation Answer Date Re corded In the past 12 months, has l ack of transportation kept you from medical appointments or from getting medications? No 05/2024 In the past 12 months, has l ack of transportation kept you from meetings, work, or from getting things needed for daily living? No 02/06/2025 Housing Stability Vital Sign Answer Sourav e Recorded In the last 12 months, was t here a time when you were not able to pay the mortgage or rent on time? No 02/06/2025 In the past 12 months, how m any times have you moved where you were living? 0 02/06/2025 At any time in the past 12 m [facility], were you homeless or living in a correction (including now)? No 02/06/[address] [facility] Utilities Answer Date Recorded In the past 12 months has [employer], [employer], oil, or water [employer] threatened to shut off services in your home? No 02/06/2025 CAGE ASSESSMENT Answer Date Recorded Cage unable to access Not on file 01/17/2025 Cage max number of drinks Not on file 2024 Cage Beverages a week Not on file 01/17/2025 Have you ever felt you should CUT down on your d rinking? 0 01/17/2025 Have you been ANNOYED by people criticizing your drinking? 0 01/17/2025 Have you felt GUILTY about your drinking? 0 01/17/2025 Have you had a drink first t geri in the morning (E[employer] OR LOAN UNDERWRITER) to steady your nerves or to get rid of a hangover? 0 01/17/2025 CAGE Questionnaire Score 0 025 Sex and Gender Information Value Date Recorded Sex Assigned at Male 03/16/2024 2:12 PM EST Legal Sex Male 7:40 PM EDT Gender Identity Not on file Sexual Orientation Not on file documented as of this encounter Last Filed Vital Signs Vital Sign Reading Time Taken Comments Blood Pressure - - Pulse - - Temperature - - Respiratory Rate - - Oxygen Saturation - - Inhaled Oxygen Concentration - - Weight - - Height 177.8 cm (5' 10 ) 02/21/2025 10:58 AM EST Body Mass Index - - documented in this encounter Functional Status * Over the past 2 weeks, how often have you been bothered by any of the following problems? Question Answer Date of Assessment Author Little interest or pleasure in doing things Not at all 02/21/2025 11:01 AM EST Joceiln Watters Feeling down, depressed, or hopeless Not at all 02/21/2025 11:01 AM EST Sadie Watterst Patient Health Questionnaire -2 Score 0 02/21/2025 11:01 AM EST Jocelin Watters * Question Answer Date of Assessment Author Trouble falling or staying a sleep, or sleeping too much Not at all 02/21/2025 11:01 AM EST Duong, Tempest Feeling tired or having cassi le energy Not at all 02/21/2025 11:01 AM EST Watters, Tempest Poor appetite or overeating Not at all 02/21/2025 11 :01 AM EST Watters, Tempest Feeling bad about yourself - or that you are a failure or have let yourself or your family down Not at all 02/21/2025 11:01 AM EST Duong, Tempest Trouble concentrating on thi ngs, such as reading the newspaper or watching television Not at all 02/21/2025 11:01 AM EST Duong, Camillapest Moving or speaking so slowly that other people could have noticed. Or the opposite - being so fidgety or restless that you have been moving around a lot more than usual Not at all 02/21/2025 11:01 AM EST Duong, Tempest Thoughts that you would be b jose luis off or hurting yourself in some way Not at all 02/21/2025 11:01 AM EST Jocelin Watters Patient Health Questionnaire -9 Score 0 02/21/2025 11:01 AM EST Jocelin Watters * How difficult have these problems made it for you to do your work, take care of things at home, or get along with other people? Answer Date of Assessment Author Not difficult at all 02/21/2025 11:01 AM EST Jocelin Cardona documented as of this encounter Plan of Treatment Upcoming Encounters Date Type Department Care Team ([facility] st Contact Info) Description 03/15/2025 3:30 PM EST Clinical Support [facility] [address] [address] 03/15/2025 4:00 PM EST Office Visit [facility] [address] [place] [place] [phone] Parth Fitzgerald MD [address] [place], [place] [id number] 03/28/2025 1:40 PM EST Office Visit [facility] [place] Braydon [address] [place] [address] Duglas Greer MD [address] [place] [address] 07/18/2025 1:40 PM EDT Office Visit ID [facility] [address] [place] [address] Diana Alonzo PA [address] [place] [address] documented as of this encounter Visit Diagnoses Not on filedocumented in this encounter Additional Health Concerns Infection Onset Date Last Indicated Resolved Time MRSA Comment:Added from external infection. Source: [facility]. 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 Source: [facility]. 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 Do not resolve this infection. 02/09/2025 02/14/2025 Assessment Noted Time PHQ-9 Depression Total Score: 0 02/22/20 11:01 AM EST A fall risk assessment has been complete d for the patient 02/21/2025 11:01 AM EST A Body Mass Index follow-up plan has been documented for the patient 02/13/2025 1:18 PM EST documented as of this encounter Care Teams Top Coater Relationship Specialty Start Date End Date Favian Sandy DO [address] [place] [id number] PCP - General 07/05/24 Navya Man MD [address] [place] [phone] Consulting Physician Hematology 09/28/24 Annette Gomes, RN None None Registered Nurse 01/18/25 documented as of this encounter
--- OUTSIDE RECORDS SUMMARY | 2025-02-22 12:00 | XMS_ITS | Encounter Summary ---
Author Organization [facility] Address [address] [place] [address] Care Team Providers Care Level Glass Forming Machine Operator Name Role Phone DuFavian Wilfrido DO Primary Care Provider [phone] Navya Man MD Unavailable Annette Gomes RN Unavailable Unavailable Reason for Visit * Reason Comments Labs Dressing Change Encounter Details Date Type Department Care Team (Latest Contact Info) Description 02/22/2025 12:00 PM EST Clinical Support [facility] Hematology/BMT and Cellular Therapy Program [address] [place] [address] [place] [phone] Sickle cell disease with crisis and other [...] time in the past 12 m [facility], were you homeless or living in a intermediate (including now)? No 02/06/2025 [facility] Utilities Answer Date Recorded In the past [...] first t geri in the morning (EYE-FIELD MARKETING COORDINATOR) to steady your nerves or to [...] Upcoming Encounters Date Type Department Care Team ([facility] Contact Info) Description 03/15/2025 3:30 PM EST Clinical Support [facility] CC Hematology/BMT and Cellular Therapy Program [address] [place] [phone] 03/15/2025 4:00 PM EST Office Visit [facility] Hematology/BMT and Cellular Therapy Program [address] [place] [phone] Parth Fitzgerald MD [address] [place] [address] 03/28/2025 1:40 PM EST Office Visit [facility] [place] 800 [facility]. [address] [place] [address] Duglas Grere MD [address] [place] [address] 07/18/2025 1:40 PM EDT Office Visit [facility] [address], [address] [place] [phone] Diana Alonzo, PA [address] [place] [address] documented as of this encounter Procedures Procedure [...] BLOOD BANK TEST ORDERABLES F inal Result Performing Organization Address City/State/[facility] Co de Phone Number BLOOD BANK [address] * (ABNORMAL) CBC and Differential (02/22/2025 1:01 PM EST) WBC Count 12.02(H) 3.70 - 10.30 10*3/uL LAB HEMATOLOGY METHOD 02/22/2025 1:37 PM EST [facility] RBC Count 3.11(L) 4.60 - 6.10 10*6/uL LAB HEMATOLOGY METHOD 02/22/2025 1:37 PM EST [facility] HGB 9.0(L) 13.7 - 17.5 g/dL LAB HEMATOLOGY METHOD 02/22/2025 1:37 PM EST [facility] HCT 27.1(L) 40.0 - 51.0 % LAB HEMATOLOGY METHOD 02/22/2025 1:37 PM EST [facility] Platelet Count 474(H) 155 - 369 10*3/uL LAB HEMATOLOGY METHOD 02/22/2025 1:37 PM EST [facility] MCV 87 79 - 98 fL LAB HEMATOLOGY METHOD 02/22/2025 1:37 PM EST [facility] MCH 28.9 26.0 - 32.0 pg LAB HEMATOLOGY METHOD 02/22/2025 1:37 PM EST [facility] MCHC 33.2 30.7 - 35.5 g/dL LAB HEMATOLOGY METHOD 02/22/2025 1:37 PM EST [facility] RDW 18.3(H) 11.5 - 14.5 % LAB HEMATOLOGY METHOD 02/22/2025 1:37 PM EST [facility] MPV 8.5(L) 8.8 - 12.5 fL LAB HEMATOLOGY METHOD 02/22/2025 1:37 PM [facility] nRBC 0.3(H) <=0.0 per 100 WBCs LAB HEMATOLOGY METHOD 02/22/2025 1:37 PM [facility] Differential Type Automated LAB HEMATOLOGY METHOD 02/22/2025 1:37 PM [facility] Neutrophils % 68 % LAB HEMATOLOGY METHOD 02/22/2025 1:37 PM [facility] Lymphocytes % 20 % LAB HEMATOLOGY METHOD 02/22/2025 1:37 PM [facility] Monocytes % 10 % LAB HEMATOLOGY METHOD 02/22/2025 1:37 PM [facility] Eosinophils % 1 % LAB HEMATOLOGY METHOD 02/22/2025 1:37 PM [facility] Basophils % 1 % LAB HEMATOLOGY METHOD 02/22/2025 1:37 PM [facility] Immature Granulocytes % 0 % LAB HEMATOLOGY METHOD 02/22/2025 1:37 PM [facility] Neutrophils Absolute 8.15(H) 1.60 - 6.10 10*3/uL LAB HEMATOLOGY METHOD 02/22/2025 1:37 PM EST [facility] Lymphocytes Absolute 2.35 1.20 - 3.90 10*3/uL LAB HEMATOLOGY METHOD 02/22/2025 1:37 PM EST [facility] Monocytes Absolute 1.19(H) 0.30 - 0.90 10*3/uL LAB HEMATOLOGY METHOD 02/22/2025 1:37 PM [facility] Eosinophils Absolute 0.12 0.00 - 0.50 10*3/uL LAB HEMATOLOGY METHOD 02/22/2025 1:37 PM EST [facility] Basophils Absolute 0.17(H) 0.00 - 0.10 10*3/uL LAB HEMATOLOGY METHOD 02/22/2025 1:37 PM EST [facility] Immature Granulocytes Absolute 0.04 0.00 - 0.06 10*3/uL LAB HEMATOLOGY METHOD 02/22/2025 1:37 PM EST [facility] Blood Blood sample taken from central line / Unknown (Port) Long-term Catheter / Unknown 02/22/2025 1:01 PM EST 02/22/2025 1:35 PM EST Narrative [facility] - 02/22/2025 1:37 PM EST Therapeutic decision making should be based on absolute values, rather than percentages. Seema Atkinson MD LAB BLOOD ORDERABLES Final Resul t [facility] [address] [place] [address] documented in this encounter Visit Diagnoses Diagnosis Sickle cell disease with crisis and other complication (CMS/HCC) documented in this encounter Additional Health Concerns Infection Onset Date Last Indicated Resolved Time MRSA Comment:Added from external infection. [facility] 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 Source[facility] 11/26/2023 02/09/2025 MDRO 08/22/2024 08/22/2024 Rhinovirus 01/17/2025 [...] documented as of this encounter Care Teams Level Glass Forming Machine Operator Relationship Specialty Start Date End Date Favian Sandy DO [address] [place] [address] [address] PCP - General 07/05/24 Navya Man MD [address] [address] Consulting Physician Hematology 09/28/24 Annette Gomes, RN None None Registered Nurse 01/18/25 documented as of this encounter
--- OUTSIDE RECORDS SUMMARY | 2025-02-22 13:35 | XMS_ITS | Encounter Summary ---
Author Organization [facility] Address [address] [place] [address] Care Team Providers Care Computer System Specialist Name Role Phone DuFavian Wilfrido SIU Primary Care Provider [phone] Navya Man MD Unavailable Annette Gomes RN Unavailable Unavailable Reason for Visit * Episode Based Medications (Routine) - Authorized Specialty Diagnoses / Procedures Referred By Contac t Referred To Contact Diagnoses Sickle cell disease with crisis and other complication (CMS/HCC) Procedures HEM/BMT Blood Administration for Outpatient Seema Atkinson MD [address] [address] Phone: tel: fax: Seema Atkinson MD [address] [address] Phone: tel: fax: Referral ID Status Reason Start Date Expiration Date V isits Requested Visits Authorized [id number] Authorized 02/20/2025 08/29/2026 1 12 Encounter Details Date Type Department Care Team (Latest Contact Info) Description 02/22/2025 1:35 PM EST - 02/22/2025 11:59 PM EST Hospital Encounter [facility] [address] [place] [address] Arrived Discharge Disposition: Home or Self Care Social History Tobacco Use Types Packs/Day Years Used Date Smoking Tobacco: Former Cigarettes 0.3 3 2 013 - 2016 Passive Smoke Exposure: Past Smokeless Tobacco: Never Tobacco Cessation:Counseling Given: Not Answered Alcohol Use Standard Drinks/Week Comments Never 0 [...] any time in the [facility] 12 [facility] were you homeless or living in a care home (including now)? No 02/06/2025 [facility] Utilities Answer Date Recorded In the past 12 months has e electric, gas, oil, or water company [...] drink first t geri in the morning (EYE-MANAGEMENT TECH) to steady your nerves or to get [...] Sign Reading Time Taken Comments Blood Pressure 126/91 02/22/2025 1:37 PM EST Pulse 88 02/22/2025 1:37 PM EST Temperature 36.6 C (97.9 F) 02/22/2025 1:37 PM EST Respiratory Rate 18 02/22/2025 1:37 PM EST Oxygen Saturation 98% 02/22/2025 1:37 PM EST Inhaled Oxygen Concentration - - Weight 82.2 kg (181 lb 3.5 oz) 02/22/2025 1:37 P M EST Height 177.8 cm (5' 10 ) 02/22/2025 1:37 PM EST Body Mass Index 26 02/22/2025 1:37 PM EST documented in this encounter Medications at Time of Discharge acetaminophen (Tylenol) 500 MG tablet Take 2 tablets by mouth every 8 hours as needed for pain. 90 tablet 12/11/2024 apixaban (Eliquis) 5 MG tablet Take 1 tablet by mouth 2 times a day. 60 tablet 12/11/2024 Deferasirox (JADENU PO) Take 6 tablets by mouth every morning. folic acid (Folvite) 1 MG tablet Take 1 tablet by mouth daily. 30 tablet 01/30/2025 5 hydroxyurea (Hydrea) 500 MG capsule Take 1 capsule (500 mg total) by mouth 2 times a day. 60 capsule 3 11/08/2024 magnesium oxide (Mag-Ox) 400 (240 Mg) MG tablet Take 1 tablet by mouth daily. 30 tablet 01/31/2025 5 methocarbamol (Robaxin) 750 MG tablet Take 1 tablet by mouth 3 times a day as needed for muscle spasms. naloxone (Narcan) 4 mg/0.1 mL nasal spray 1. Give 1 spray in nostril for no/slow breathing or cannot wake after opioid use 2. Call 911 3. Repeat in other nostril if symptoms continue 1 each 01/30/2025 oxyCODONE (Roxicodone) 30 MG immediate release tablet Take 1 tablet by mouth every 6 hours as needed for severe pain. 120 tablet 02/04/2025 oxyCODONE (Roxicodone) 5 MG immediate release tablet Take 1 tablet by mouth every 6 hours as needed for severe pain for up to 15 days. 60 tablet 02/18/2025 5 polyethylene glycol (Miralax) 17 g packet Take 17 g by mouth daily. 30 packet 01/31/2025 senna (Senokot) 8.6 MG tablet Take 1 tablet by mouth 2 times a day. 60 tablet 01/30/2025 5 sofosbuv-velpata sv-voxilaprev (Vosevi) 400-100-100 MG tablet tabletIndication s:Chronic hepatitis C without hepatic coma Take 1 tablet by mouth daily. 28 tablet 2 01/10/2025 6 documented as of this encounter Plan of Treatment Upcoming Encounters Date Type Department Care Team (Late st Contact Info) Description 03/15/2025 3:30 PM EST Clinical Support [facility] Hematology/BMT and Cellular Therapy Program [address] [facility] [place] [address] 03/15/2025 4:00 PM EST Office Visit [facility] CC Hematology/BMT and Cellular Therapy Program [address] [facility] [place] [address] Parth Fitzgerald MD 800 [place] [address] 03/28/2025 1:40 PM EST Office Visit [facility] [place] [address] [facility]. [address] [place] [address] Duglas Greer MD [address] [place] [address] 07/18/2025 1:40 PM EDT Office Visit [facility] [address], [address] [place] [address] Diana Alonzo, JAMAL [address] [place] [phone] documented as of this encounter Visit Diagnoses Not on filedocumented in this encounter Additional Health Concerns Infection Onset Date Last Indicated Resolved Time MRSA Comment:Added from external infection. Source: [facility]. 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 Source: [facility]. 11/26/2023 02/09/2025 MDRO 08/22/2024 08/22/2024 [...] documented as of this encounter Care Teams Computer System Specialist Relationship Specialty Start Date End Date Favian Sandy DO [address] [place] [address] [address] PCP - General 07/05/24 Navya Man MD [address] [address] Consulting Physician Hematology 09/28/24 Annette Gomes, RN None None Registered Nurse 01/18/25 documented as of this encounter
--- NOTE | 2025-02-25 20:35 | ECG_ITS ---
APPROVED REPORT Exam: Resting ECG HR:102 bpm ECG Measurements Heart Rate 102 AXES MS 145 P 74 QRSd 78 QRS 83 QT 338 T 63 QTc 397 Conclusion Sinus tachycardia without acute ST or T wave changes concerning for ischemia Electronically signed by : Ileana Louie, 02/27/2025 01:03:18
--- NOTE | 2025-02-25 20:37 | XR_ITS ---
PROCEDURE INFORMATION: Exam: XR Chest Exam date and time: 02/25/2025 9:16 PM Age: 29 years old Clinical indication: Pain; Chest pressure; Additional info: Chest pain or shortness of breath TECHNIQUE: Imaging protocol: Radiologic exam of the chest. Views: 2 views. COMPARISON: CR XR CHEST PORTABLE 02/05/2025 11:17 AM FINDINGS: Tubes, catheters and devices: Leads overlying chest. Central venous catheter, tip projected over RIGHT lung apex, exact location uncertain. Lungs: Mild underinflation. No definite consolidation. Pleural spaces: No significant pleural effusion. No pneumothorax. Heart/Mediastinum: No cardiomegaly. Bones/joints: No displaced fracture. Soft tissues: Unremarkable. IMPRESSION: 1. No definite acute cardiopulmonary disease. 2. Central venous catheter, tip projected over RIGHT lung apex, exact location uncertain.
[2025-02-25 20:39] VITALS: BP 156/101; PULSE 89; RESP 22; TEMP 36.6; O2SAT 99; BMI 25.1
--- NOTE | 2025-02-25 20:41 | PC.NURSE ---
respiratory notified of VBG sent to lab
--- OUTSIDE RECORDS SUMMARY | 2025-02-25 20:44 | XMS_ITS ---
Author Organization [facility] Address [address] [place] [address] Care Team Providers Care Portable Trackman Name Role Phone Favian Sandy DO Primary Care Provider [phone] Navya Man MD Unavailable Annette Gomes RN Unavailable Unavailable Hepatitis C Program Status:Active (Active) Program category:Social Work Start date:01/22/2024 Enrollment date:01/22/2024 Enrollment reason:HCV Continued Care and Services Coordination
--- OUTSIDE RECORDS SUMMARY | 2025-02-25 20:44 | XMS_ITS | Clinical Summary ---
Author Organization [facility] Address [address] [place] [address] Care Team Providers Care Unemployment Specialist Name Role Phone DuFavian matamoros Primary Care Provider [phone] Navya Man MD Unavailable Annette Gomes RN Unavailable Unavailable Allergies Active Allergy Reactions Criticality Noted Date Comments Morphine Hives Medium 01/21/2024 Mushroom Extract Complex (Obsolete) Itching,Swelling High 10/22/2024 Pt reports being allergic to all mushrooms Medications * This document contains information received from the source organization and may not represent a complete record from that organization. methocarbamol (Robaxin) 750 MG tablet Take 1 tablet by mouth 3 times a day as needed for muscle spasms. Active hydroxyurea (Hydrea) 500 MG capsule Take 1 capsule (500 mg total) by mouth 2 times a day. 60 capsule 3 025 Active apixaban (Eliquis) 5 MG tablet Take 1 tablet by mouth 2 times a day. 60 tablet 025 Active acetaminophen (Tylenol) 500 MG tablet Take 2 tablets by mouth every 8 hours as needed for pain. 90 tablet 025 Active sofosbuv-velpatas v-voxilaprev (Vosevi) 400-100-100 MG tablet tabletIndications :Chronic hepatitis C without hepatic coma Take 1 tablet by mouth daily. 28 tablet 2 025 2025 Active Deferasirox (JADENU PO) Take 6 tablets by mouth every morning. Active folic acid (Folvite) 1 MG tablet Take 1 tablet by mouth daily. 30 tablet 2024 Active polyethylene glycol (Miralax) 17 g packet Take 17 g by mouth daily. 30 packet Active senna (Senokot) 8.6 MG tablet Take 1 tablet by mouth 2 times a day. 60 tablet 2024 Active magnesium oxide (Mag-Ox) 400 (240 Mg) MG tablet Take 1 tablet by mouth daily. 30 tablet 2024 Active naloxone (Narcan) 4 mg/0.1 mL nasal spray 1. Give 1 spray in nostril for no/slow breathing or cannot wake after opioid use 2. Call 911 3. Repeat in other nostril if symptoms continue 1 each Active oxyCODONE (Roxicodone) 30 MG immediate release tablet Take 1 tablet by mouth every 6 hours as needed for severe pain. 120 tablet Active oxyCODONE (Roxicodone) 5 MG immediate release tablet Take 1 tablet by mouth every 6 hours as needed for severe pain for up to 15 days. 60 tablet 2024 Active folic acid (Folvite) 1 MG tablet Take 1 tablet by mouth daily. 30 tablet 2024 Discontinued linezolid (Zyvox) 600 MG tabletIndications :Bacteremia due to Staphylococcus Take 1 tablet by mouth 2 times a day for 14 days. 28 tablet 2024 Discontinued levoFLOXacin (Levaquin) 750 MG tabletIndications :Bacteremia due to Staphylococcus Take 1 tablet by mouth daily for 7 days. 7 tablet 2024 Discontinued oxyCODONE (Roxicodone) 30 MG immediate release tablet Take 1 tablet by mouth every 6 hours as needed for severe pain. 120 tablet 025 2024 Discontinued(R eorder) DAPTOmycin (Cubicin) injectionIndicati ons:Bacteremia Infuse 20 mL into a venous catheter 1 (one) time each day at the same time over 3 minutes for 21 days. Inpatient/[place] specific directions only. Mix and deliver per institution/f acility policy. 420 mL 025 2024 Discontinued ertapenem (INVanz) injectionIndicati ons:Bacteremia Infuse 1 g into a venous catheter 1 (one) time each day at the same time over 5 minutes for 20 days. Inpatient/[place] specific directions only. Mix and deliver per institution/f acility policy. 20 each 025 2024 Discontinued oxyCODONE (Roxicodone) 5 MG immediate release tablet Take 7 tablets by mouth every 4 hours as needed for moderate pain or severe pain for up to 14 doses. 98 tablet 025 2024 Discontinued naloxone (Narcan) 4 mg/0.1 mL nasal spray 1. Give 1 spray in nostril for no/slow breathing or cannot wake after opioid use 2. Call 911 3. Repeat in other nostril if symptoms continue 1 each 2024 Discontinued oxyCODONE (Roxicodone) 5 MG immediate release tablet Take 7 tablets by mouth every 4 hours as needed for moderate pain or severe pain for up to 14 doses. 98 tablet 025 2024 Discontinued oxyCODONE (Roxicodone) 30 MG immediate release tablet Take 1 tablet by mouth every 6 hours as needed for severe pain. 120 tablet 025 2024 Discontinued(R eorder) ertapenem (INVanz) injectionIndicati ons:Sepsis, due to unspecified organism, unspecified whether acute organ dysfunction present Infuse 1 g into a venous catheter 1 (one) time each day at the same time over 5 minutes for 6 days. Inpatient/[place] specific directions only. Mix and deliver per institution/f acility policy. 1 each 025 2024 Discontinued oxyCODONE (Roxicodone) 5 MG immediate release tablet Take 1 tablet by mouth every 4 hours for 3 days. 18 tablet 025 2024 sulfamethoxazole- trimethoprim (Bactrim) 400-80 MG tabletIndications :Sepsis, due to unspecified organism, unspecified whether acute organ dysfunction present Take 2 tablets by mouth 2 times a day for 7 days. 28 tablet 025 2024 Discontinued sulfamethoxazole- trimethoprim (Bactrim) 400-80 MG tabletIndications :Sepsis, due to unspecified organism, unspecified whether acute organ dysfunction present Take 2 tablets by mouth 2 times a day for 5 days. 20 tablet 025 2024 Active Problems Patient Care Coordination No te Formatting of this note migh t be different from the original. Encounter entered in error. 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 08/01/2024 Essential (primary) hypertension 04/30/2024 Vitamin D deficiency, unspecified 04/30/2024 Interstitial pulmonary disease, unspecified 03/07 Other chronic pain 02/12/2024 Pulmonary hypertension, unspecified 02/10/2024 Normocytic anemia 01/21/2024 Other disorders of bilirubin metabolism 01/21/20 Elevated [...] Date Resolved Date Sickle cell pain crisis 10/05/202410/05 Palliative care encounter 10/05/2024 Bloodstream infection due [...] extremity 04/11/2024 06/15/2024 Chronic pulmonary edema 03/25/202406/05 Acute respiratory failure with hypoxemia 01/21/2024 06/15/2024 Sickle cell pain crisis 01/21/202408/06 Assessment & Plan (08/20/2024 3:41 PM EDT): [...] loss 04/10/2014 06/15/2024 Hepatitis B 09/27/2024 Encounters * This document contains information received from the source organization and may not represent a complete record from that organization. Date Type Department Care Team Description 02/22/2025 1:35 PM EST - 02/22/2025 11:59 PM EST Hospital Encounter [facility] [address] [place] [address] Arrived Discharge Disposition: Home or Self Care 02/22/2025 12:00 PM EST Clinical Support [facility] [address] [place] [address] Sickle cell disease with crisis and other complication (CMS/HCC) 02/22/2025 Travel 02/21/2025 10:50 AM EST Office Visit [facility] [address] [place] [address] Diana Alonzo PA 02/21/2025 Orders Only [facility] 750 [facility], [address] [place] [address] [place] [address] Seema Atkinson MD Sickle cell disease with crisis and other complication (CMS/HCC) (Primary Dx) 02/21/2025 Orders Only [facility] 750 [facility], [address] [place] [address] [place] [address] Seema Atkinson MD Sickle cell disease with crisis and other complication (CMS/HCC) (Primary Dx) 02/18/2025 Travel 02/15/2025 Patient Outreach [facility] [address], [address] [place] [address] Annette Gomes, NASEEM TCM 02/11/2025 Travel 02/10/2025 Travel 02/09/2025 Travel 02/08/2025 Travel 02/06/2025 Travel 02/06/2025 Patient Outreach [facility] [address], [address] [place] [address] Annette Gomes, RN 02/05/2025 Orders Only External Location [address] [place] [address] Provider, External 02/05/2025 Travel 02/04/2025 Telephone [facility] Hematology/BMT and Cellular Therapy Program [address] [facility] [place] [address] Parth Fitzgerald MD Med Refill 02/04/2025 Patient Outreach [facility] [address] [place] [address] Annette Gomes, NASEEM [facility] 02/04/2025 Clinical Support [place] [id number] Jaydon Stuart, PharmD 01/31/[address] [address] Chichi Quispe MBBS 01/31/[address] [address] Chichi Quispe MBBS 01/31/[address] [address] Chichi Quispe MBBS 01/28/2025 Travel 01/23/2025 Travel 01/22/2025 Travel 01/21/2025 Travel 01/20/2025 Travel 01/18/2025 Referral Triage [facility] [address] [place] [address] [address], [address] [place] [phone] Annette Gomes, RN 01/18/2025 Patient Outreach [facility] [address] [place] [address], [address] [place] [address] Harrison Ileana Pj 01/17/2025 Travel 01/16/2025 Orders Only [facility] [address] [place] [address] Diana Alonzo PA Chronic hepatitis C without hepatic coma (Primary Dx) 01/16/2025 Telephone [facility] [address] [place] [phone] Joann Posey, RN 01/15/2025 Telephone [facility] [address] [place] [phone] Diana Alonzo PA Treatment (HCV Treatment start date 01/12/25. Labs at /[facility].) 01/10/2025 Refill [facility] [address] [place] [phone] Parth Fitzgerald MD 01/10/2025 Orders Only [facility] [address] [place] [phone] Diana Alonzo PA Chronic hepatitis C without hepatic coma 01/08/2025 Patient Outreach [facility] [address] [place], [place] [address]za, [address] [place] [address] Camilla Guerrier, RN [facility] 01/07/2025 Orders Only [facility] [address] [place] [phone] Godman, [place] M, PA Chronic hepatitis C without hepatic coma (Primary Dx) 01/07/2025 Telephone [facility] [address] [place] [address] Papo Campo, PharmD 01/03/2025 Telephone [facility] [address] [place] [address] Aric Lee MD Prior-authorizatio n/insurance Verification 01/03/2025 Telephone [facility] [address] [place] [address] Markie Kaufman, corn shucker TEST CLAIM 01/02/2025 Travel 12/31/2024 Patient Outreach [facility] [address] [place] [address] Jackie Menard 12/27/2024 Telephone [facility] [address] [place] [address] Ileana Gongora, PharmD 12/27/2024 Travel 12/22/2024 Travel 12/18/2024 Travel 12/17/2024 Treatment [facility] [address] [address] Diana Alonzo PA 12/17/2024 Travel 12/12/2024 Travel 12/11/2024 Telephone [facility] [address] [place] [address] Kyra Lopez, RN 12/10/2024 10:00 AM EDT Ancillary Procedure [facility] [address] [place] [address] Chronic hepatitis C without hepatic coma 12/10/2024 Travel 12/09/2024 Travel 12/07/2024 Refill [facility] [address] [place] [address] Parth Fitzgerald MD from Last 3 Months Immunizations Immunization Administration Dates Next Due DTP / HiB 02/06/1996,06/29/1995,03/22/1995 DTaP, Unspecified 12/08/1998 Hep B, Adolescent or Pediatric 06/29/1995 Influenza, Unspecified 03/09/2021,2019,12/13/2017,2010,01/01/2010,12/19/2008,01/25/2008 Influenza, injectable, quadr ivalent, preservative free 11/24/2018 Influenza, seasonal, injectable 12/11/2016,01/25,03/02/2007 Influenza, seasonal, injecta ble, preservative free 12/30/2011 MMR 09/17/1998,09/26/1995 Novel [id number], all formulations 02/13/2009 OPV 09/17/1998,06/29/1995,03/22/1995 Tdap 08/24/2006 [...] any time in the past 12 m onths, were you homeless or living in a penitentiary (including now)? No 02/06/2025 [facility] Utilities Answer Date Recorded In the past 12 months has e [employer], gas, oil, or water [employer] threatened to shut off services in your [...] drink first t geri in the morning (EYE-ROAD MENDER) to steady your nerves or to get [...] Mass Index 26 02/22/2025 1:37 PM EST Plan of Treatment Upcoming Encounters Date Type Department Care Team (Late st Contact Info) Description 03/15/2025 3:30 PM EST Clinical Support [facility] Hematology/BMT and Cellular Therapy Program [address] [place] [phone] 03/15/2025 4:00 PM EST Office Visit [facility] Hematology/BMT and Cellular Therapy Program [address] [place] [phone] Parth Fitzgerald MD [address] [place] [phone] 03/28/2025 1:40 PM EST Office Visit [facility] [place] [address] [facility]. [address] [place] [address] Duglas Greer MD [address] [place] [address] 07/18/2025 1:40 PM EDT Office Visit [facility] [address] [place] [address] Diana Alonzo, JAMAL [address] [place] [address] Health Maintenance Due Date Last Done Comments [facility]-Infant/Child/Adol SDOH Screenings 1994 [facility]-Hepatitis B Vaccines (2 [...] 08/24/2016 08/24/2006, 12/08/1998, 02/06/1996, Additional history exists [id number] Vaccine (3 - 2024- season) 2024 01/23/2021, 06/11/2020 [facility]-Influenza Vaccine (#1) 11/05/202403/09, 12/20/2019, 11/24/2018, Additional history exists [facility]- SDOH Screenings 08/07/2025 [facility]-Adult SDOH Screenings 08/07/2025 02/06/2025 [facility]-Depression Screening 02/21/2026 02/21/2025, 02/04 [facility]-HIB Vaccines Completed 02/06/1996, , 03/22/1995 [facility]-IPV Vaccines Completed 09/17/1998, , 03/22/1995 [facility]-HIV Screening Completed 02/10/2024, 01/03/2015 [facility]-Obesity Intervention Completed 025, 02/04/2025, 01/17/2025, Additional history exists HPV Vaccines (No Doses Required) Completed [facility]-Rotavirus Vaccines Aged Out No lo nger eligible based on patient's age to complete this topic Procedures Procedure Name Priority Date/Time Associated Diagnosis Comments TYPE AND SCREEN Routine 02/22/2025 1:01 PM EST Sickle cell disease with crisis and other complication (CMS/HCC) CBC WITH AUTO DIFFERENTIAL Routine 02/22/2025 1:01 PM EST Sickle cell disease with crisis and other complication (CMS/HCC) MORPHOLOGY Routine 02/13/2025 2:48 AM EST CBC WITH AUTO DIFFERENTIAL Routine 02/13/2025 2:48 AM EST TRANSFUSE RED BLOOD CELLS Routine 02/12/2025 3:38 PM EST PREPARE RBC Routine 02/12/2025 10:26 AM EST TYPE AND SCREEN Routine 02/12/2025 9:25 AM EST COMPREHENSIVE METABOLIC PANEL, PLASMA Routine 02/12/2025 3:31 AM EST CBC WITH AUTO DIFFERENTIAL Routine 02/12/2025 3:31 AM EST HEMOGLOBIN EVAL W RFLX TO ELECTROPHORESIS AND/OR RBC SOLUBILITY (SO) Pending Discharge 02/11/2025 6:09 PM EST BLOOD CULTURE (AEROBIC/ANAEROBIC SET) Pending Discharge 02/11/2025 6:09 PM EST IR TUNNELED CVC REPLACEMENT COMPLETE Routine 02/11/2025 3:06 PM EST COMPREHENSIVE METABOLIC PANEL, PLASMA Routine 02/11/2025 3:33 AM EST CBC W/O DIFFERENTIAL Routine 02/11/2025 3:33 AM EST NASOPHARYNGEAL RESPIRATORY PANEL Routine 02/10/2025 5:38 PM EST VANCOMYCIN, PEAK, PLASMA Timed 02/10/2025 4:07 PM EST URINE HERNANDEZ PANEL Routine 02/10/2025 1:35 PM EST URINALYSIS WITH REFLEX MICROSCOPIC Routine 02/10/2025 1:35 PM EST URINALYSIS WITH REFLEX MICROSCOPIC AND CULTURE Routine 02/10/2025 1:35 PM EST STREPTOCOCCUS PNEUMONIAE AND LEGIONELLA URINARY ANTIGEN Routine 02/10/2025 1:35 PM EST VANCOMYCIN, TROUGH, PLASMA Timed 02/10/2025 12:[address] ABDOMEN PELVIS W IV CONTRAST Routine 02/10/2025 11:[address] CHEST W IV CONTRAST Routine 02/10/2025 11:36 AM EST COMPREHENSIVE METABOLIC PANEL, PLASMA Routine 02/10/2025 5:34 AM EST CBC WITH AUTO DIFFERENTIAL Routine 02/10/2025 5:34 AM EST BACTERIAL ID GRAM NEGATIVE Routine 02/09/2025 4:20 PM EST BLOOD CULTURE (AEROBIC/ANAEROBIC SET) Routine 02/09/2025 4:20 PM EST XR CHEST 1 VIEW STAT 02/09/2025 11:21 AM EST MORPHOLOGY Routine 02/09/2025 5:41 AM EST BASIC METABOLIC PANEL, PLASMA Routine 02/09/2025 5:41 AM EST CBC W/O DIFFERENTIAL Routine 02/09/2025 5:41 AM EST CBC W/O DIFFERENTIAL Routine 02/08/2025 5:44 AM EST BASIC METABOLIC PANEL, PLASMA Routine 02/08/2025 5:44 AM EST BASIC METABOLIC PANEL, PLASMA Routine 02/07/2025 1:50 AM EST CBC WITH AUTO DIFFERENTIAL Routine 02/07/2025 1:50 AM EST MAGNESIUM, PLASMA Routine 02/07/2025 1:5 0 AM EST ECHO, ADULT TRANSTHORACIC LIMITED Routine 02/06/2025 3:10 PM EST MORPHOLOGY Routine 02/06/2025 3:21 AM EST RETICULOCYTES, BLOOD Routine 02/06/2025 3:21 AM EST BASIC METABOLIC PANEL, PLASMA Routine 02/06/2025 3:21 AM EST CBC W/O DIFFERENTIAL Routine 02/06/2025 3:21 AM EST HEMOGLOBIN EVAL W RFLX TO ELECTROPHORESIS AND/OR RBC SOLUBILITY (SO) Routine 02/05/2025 9:34 PM EST SCHISTOCYTE SMEAR Routine 02/05/2025 9:2 3 PM EST MULTI DRUG RESISTANCE TEST Routine 02/05/2025 7:39 PM EST PREPARE RBC STAT 02/05/2025 5:41 PM EST C-REACTIVE PROTEIN, PLASMA Add-On 02/05/2025 5:31 PM EST TROPONIN T, HIGH SENSITIVITY, 2 HOUR, PLASMA Timed 02/05/2025 5:[address] LUMBAR SPINE WO IV CONTRAST STAT 02/05/2025 5:15 PM EST SARS COV2 COVID 19/INFLUENZA A, B STAT 02/05/2025 4:25 PM EST XR CHEST 1 VIEW STAT 02/05/2025 4:05 PM EST BLOOD CULTURE (AEROBIC/ANAEROBIC SET) STAT 02/05/2025 3:01 PM EST MORPHOLOGY STAT 02/05/2025 2:57 PM EST PROCALCITONIN, PLASMA STAT Add-on 02/05/2025 2:57 PM EST CREATINE KINASE, TOTAL, PLASMA STAT Add-on 02/05/2025 2:57 PM EST TYPE AND SCREEN STAT 02/05/2025 2:57 PM EST RETICULOCYTES, BLOOD STAT 02/05/2025 2:57 PM EST BLOOD GAS PANEL, VENOUS STAT 02/05/2025 2:57 PM EST TROPONIN T, HIGH SENSITIVITY, 0 HOUR, PLASMA, REFLEX TO 2 HOUR STAT 02/05/2025 2:57 PM EST LIPASE, PLASMA STAT 02/05/2025 2:57 PM EST PHOSPHORUS, PLASMA STAT 02/05/2025 2: 57 PM EST MAGNESIUM, PLASMA STAT 02/05/2025 2:5 7 PM EST COMPREHENSIVE METABOLIC PANEL, PLASMA STAT 02/05/2025 2:57 PM EST PROTHROMBIN TIME(PT) / INR STAT 02/05/2025 2:57 PM EST CBC WITH AUTO DIFFERENTIAL STAT 02/05/2025 2:57 PM EST BACTERIAL ID GRAM NEGATIVE Routine 02/05/2025 2:57 PM EST BACTERIAL ID GRAM POSITIVE Routine 02/05/2025 2:57 PM EST BLOOD CULTURE (AEROBIC/ANAEROBIC SET) STAT 02/05/2025 2:57 PM EST URINE HERNANDEZ PANEL STAT 02/05/2025 2:55 PM EST URINALYSIS WITH REFLEX MICROSCOPIC STAT 02/05/2025 2:55 PM EST URINALYSIS WITH REFLEX MICROSCOPIC AND CULTURE STAT 02/05/2025 2:55 PM EST ECG ADULT STAT 02/05/2025 2:41 PM EST XR OUTSIDE IMAGES 02/05/2025 11:17 AM EST HEPATITIS C VIRUS (HCV) QUANTITATIVE PCR Pending Discharge 01/30/2025 2:47 PM EST CREATINE KINASE, TOTAL, PLASMA Pending Discharge 01/30/2025 8:28 AM EST MAGNESIUM, PLASMA Routine 01/30/2025 3:5 8 AM EST PHOSPHORUS, PLASMA Routine 01/30/2025 3: 58 AM EST COMPREHENSIVE METABOLIC PANEL, PLASMA Routine 01/30/2025 3:58 AM EST CBC WITH AUTO DIFFERENTIAL Routine 01/30/2025 3:58 AM EST PROTHROMBIN TIME(PT) / INR Routine 01/29/2025 3:39 AM EST MORPHOLOGY Routine 01/29/2025 2:45 AM EST HAPTOGLOBIN, SERUM Routine 01/29/2025 2: 45 AM EST RETICULOCYTES, BLOOD Routine 01/29/2025 2:45 AM EST LACTATE DEHYDROGENASE, PLASMA Routine 01/29/2025 2:45 AM EST COMPREHENSIVE METABOLIC PANEL, PLASMA Routine 01/29/2025 2:45 AM EST MAGNESIUM, PLASMA Routine 01/29/2025 2:4 5 AM EST PHOSPHORUS, PLASMA Routine 01/29/2025 2: 45 AM EST CBC WITH AUTO DIFFERENTIAL Routine 01/29/2025 2:45 AM EST ECHO, ADULT TRANSTHORACIC LIMITED Routine 01/28/2025 12:43 PM EST IR TUNNELED CENTRAL VENOUS CATHETER PLACEMENT 5+ YEARS Routine 01/28/2025 9:41 AM EST EXTRA TUBE LIGHT GREEN TOP Routine 01/27/2025 10:52 AM EST EXTRA TUBES Routine 01/27/2025 10:52 AM EST MORPHOLOGY Routine 01/27/2025 10:35 AM EST LACTATE DEHYDROGENASE, PLASMA Routine 01/27/2025 10:35 AM EST HAPTOGLOBIN, SERUM Routine 01/27/2025 10:35 AM EST RETICULOCYTES, BLOOD Routine 01/27/2025 10:35 AM EST CBC W/O DIFFERENTIAL Routine 01/27/2025 10:35 AM EST COMPREHENSIVE METABOLIC PANEL, PLASMA Routine 01/27/2025 10:35 AM EST MAGNESIUM, PLASMA Routine 01/27/2025 10:35 AM EST PHOSPHORUS, PLASMA Routine 01/27/2025 10:35 AM EST LACTATE DEHYDROGENASE, PLASMA Routine 01/26/2025 9:53 AM EST HAPTOGLOBIN, SERUM Routine 01/26/2025 9: 53 AM EST RETICULOCYTES, BLOOD Routine 01/26/2025 9:53 AM EST CBC W/O DIFFERENTIAL Routine 01/26/2025 9:53 AM EST COMPREHENSIVE METABOLIC PANEL, PLASMA Routine 01/26/2025 9:53 AM EST MAGNESIUM, PLASMA Routine 01/26/2025 9:5 3 AM EST PHOSPHORUS, PLASMA Routine 01/26/2025 9: 53 AM EST N-TERMINAL PROBNP, PLASMA Add-On 01/25/2025 8:52 AM EST CREATINE KINASE, TOTAL, PLASMA Add-On 01/25/2025 8:52 AM EST DIRECT BILIRUBIN, PLASMA Add-On 01/25/2025 8:52 AM EST HAPTOGLOBIN, SERUM Routine 01/25/2025 8: 52 AM EST RETICULOCYTES, BLOOD Routine 01/25/2025 8:52 AM EST COMPREHENSIVE METABOLIC PANEL, PLASMA Routine 01/25/2025 8:52 AM EST MAGNESIUM, PLASMA Routine 01/25/2025 8:5 2 AM EST PHOSPHORUS, PLASMA Routine 01/25/2025 8: 52 AM EST CBC W/O DIFFERENTIAL Routine 01/25/2025 8:52 AM EST TRANSFUSE RED BLOOD CELLS STAT 01/24/2025 10:08 PM EST TRANSFUSE RED BLOOD CELLS STAT 01/24/2025 5:08 PM EST PREPARE RBC STAT 01/24/2025 2:25 PM EST MORPHOLOGY Routine 01/24/2025 10:05 AM EST C-REACTIVE PROTEIN, PLASMA STAT 01/24/2025 10:05 AM EST PROCALCITONIN, PLASMA STAT 01/24/2025 10:05 AM EST LACTATE DEHYDROGENASE, PLASMA Routine 01/24/2025 10:05 AM EST HAPTOGLOBIN, SERUM Routine 01/24/2025 10:05 AM EST RETICULOCYTES, BLOOD Routine 01/24/2025 10:05 AM EST COMPREHENSIVE METABOLIC PANEL, PLASMA Routine 01/24/2025 10:05 AM EST MAGNESIUM, PLASMA Routine 01/24/2025 10:05 AM EST PHOSPHORUS, PLASMA Routine 01/24/2025 10:05 AM EST CBC WITH AUTO DIFFERENTIAL Routine 01/24/2025 10:05 AM EST TRANSFUSE RED BLOOD CELLS Routine 01/23/2025 5:55 PM EST DIRECT BILIRUBIN, PLASMA STAT 01/23/2025 1:44 PM EST LACTATE DEHYDROGENASE, PLASMA STAT 01/23/2025 1:44 PM EST MAGNESIUM, PLASMA STAT 01/23/2025 1:4 4 PM EST COMPREHENSIVE METABOLIC PANEL, PLASMA STAT 01/23/2025 1:44 PM EST CBC W/O DIFFERENTIAL STAT 01/23/2025 1:44 PM EST BLOOD GAS PANEL, VENOUS STAT 01/23/2025 1:44 PM EST RETICULOCYTES, BLOOD STAT 01/23/2025 1:44 PM EST BLOOD CULTURE (AEROBIC/ANAEROBIC SET) STAT 01/23/2025 1:[address] ANGIO PULMONARY EMBOLISM STAT 01/23/2025 12:34 PM EST XR CHEST 1 VIEW STAT 01/23/2025 11:49 AM EST COMPREHENSIVE URINE DRUG SCREENING,QUALITATIVE ASSAY, >= 27 DRUG CLASSES STAT 01/23/2025 11:36 AM EST PREPARE RBC Routine 01/23/2025 11:03 AM EST BLOOD CULTURE (AEROBIC/ANAEROBIC SET) STAT 01/22/2025 2:35 PM EST INSERT PERIPHERAL IV Routine 01/22/2025 2:10 PM EST HEMOGLOBIN EVAL W RFLX TO ELECTROPHORESIS AND/OR RBC SOLUBILITY (SO) Routine 01/22/2025 1:46 PM EST VAS US VENOUS DUPLEX UPPER EXTREMITY BILATERAL Routine 01/22/2025 12:26 PM EST ECHO, ADULT TRANSTHORACIC COMPLETE Routine 01/22/2025 10:57 AM EST COMPREHENSIVE METABOLIC PANEL, PLASMA Routine 01/22/2025 3:21 AM EST CBC W/O DIFFERENTIAL Routine 01/22/2025 3:[address] CHEST W IV CONTRAST Routine 01/21/2025 6:[address] ABDOMEN PELVIS W IV CONTRAST Routine 01/21/2025 6:38 PM EST TRANSFUSE RED BLOOD CELLS Routine 01/21/2025 1:02 PM EST TYPE AND SCREEN Routine 01/21/2025 11:23 AM EST PREPARE RBC Routine 01/21/2025 10:20 AM EST CBC WITH AUTO DIFFERENTIAL STAT 01/21/2025 9:32 AM EST COMPREHENSIVE METABOLIC PANEL, PLASMA STAT 01/21/2025 9:32 AM EST INSERT PERIPHERAL IV Routine 01/21/2025 9:29 AM EST RESPIRATORY CULTURE AND GRAM STAIN Routine 01/21/2025 2:49 AM EST STREPTOCOCCUS PNEUMONIAE AND LEGIONELLA URINARY ANTIGEN Routine 01/21/2025 2:48 AM EST POCT GLUCOSE METER UNSOLICITED RESULTS Routine 01/20/2025 2:57 PM EST LACTATE, VENOUS Routine 01/20/2025 11:17 AM EST C-REACTIVE PROTEIN, PLASMA Routine 01/20/2025 11:17 AM EST PROCALCITONIN, PLASMA Routine 01/20/2025 11:17 AM EST COMPREHENSIVE METABOLIC PANEL, PLASMA Routine 01/20/2025 11:17 AM EST CBC W/O DIFFERENTIAL Routine 01/20/2025 11:17 AM EST BACTERIAL ID GRAM NEGATIVE Routine 01/20/2025 11:17 AM EST BLOOD CULTURE (AEROBIC/ANAEROBIC SET) Routine 01/20/2025 11:17 AM EST XR CHEST 1 VIEW STAT 01/20/2025 4:28 AM EST ECG ADULT Routine 01/19/2025 7:13 PM EST INSERT PERIPHERAL IV STAT 01/19/2025 4:09 PM EST IRON & TOTAL IRON BINDING CAPACITY, PLASMA (INCLUDES TRANSFERRIN) Routine 01/19/2025 3:54 PM EST CREATINE KINASE, TOTAL, PLASMA Routine 01/19/2025 3:54 PM EST PROTHROMBIN TIME(PT) / INR Routine 01/19/2025 3:54 PM EST COMPREHENSIVE METABOLIC PANEL, PLASMA Routine 01/19/2025 3:54 PM EST MAGNESIUM, PLASMA Routine 01/19/2025 3:5 4 PM EST CBC WITH AUTO DIFFERENTIAL Routine 01/19/2025 3:54 PM EST HAPTOGLOBIN, SERUM Routine 01/19/2025 3: 54 PM EST BLOOD CULTURE (AEROBIC/ANAEROBIC SET) Routine 01/19/2025 3:54 PM EST APTT Routine 01/18/2025 3:07 AM EST PROTHROMBIN TIME(PT) / INR Routine 01/18/2025 3:07 AM EST LACTATE DEHYDROGENASE, PLASMA Add-On 01/18/2025 3:04 AM EST RETICULOCYTES, BLOOD Add-On 01/18/2025 3:04 AM EST PHOSPHORUS, PLASMA Routine 01/18/2025 3: 04 AM EST MAGNESIUM, PLASMA Routine 01/18/2025 3:0 4 AM EST COMPREHENSIVE METABOLIC PANEL, PLASMA Routine 01/18/2025 3:04 AM EST CBC W/O DIFFERENTIAL Routine 01/18/2025 3:04 AM EST MULTI DRUG RESISTANCE TEST Routine 01/17/2025 10:26 PM EST PROCALCITONIN, PLASMA Add-On 01/17/2025 7:21 PM EST C-REACTIVE PROTEIN, PLASMA Add-On 01/17/2025 7:21 PM EST TROPONIN T, HIGH SENSITIVITY, 2 HOUR, PLASMA Timed 01/17/2025 7:21 PM EST BACTERIAL ID GRAM POSITIVE Routine 01/17/2025 7:21 PM EST BLOOD CULTURE (AEROBIC/ANAEROBIC SET) STAT 01/17/2025 7:21 PM EST TROPONIN T, HIGH SENSITIVITY, 0 HOUR, PLASMA, REFLEX TO 2 HOUR STAT 01/17/2025 3:22 PM EST MAGNESIUM, PLASMA STAT 01/17/2025 3:2 2 PM EST COMPREHENSIVE METABOLIC PANEL, PLASMA STAT 01/17/2025 3:22 PM EST CBC WITH AUTO DIFFERENTIAL STAT 01/17/2025 3:22 PM EST BLOOD CULTURE (AEROBIC/ANAEROBIC SET) STAT 01/17/2025 3:22 PM EST NASOPHARYNGEAL RESPIRATORY PANEL STAT 01/17/2025 3:20 PM EST GROUP A STREPTOCOCCUS BY PCR GSH STAT 01/17/2025 3:20 PM EST SARS COV2 COVID 19/INFLUENZA A, B STAT 01/17/2025 3:20 PM EST XR CHEST 2 VIEWS STAT 01/17/2025 2:27 PM EST ECG ADULT STAT 01/17/2025 1:41 PM EST USGPIV (ULTRASOUND GUIDED PERIPHERAL IV) Routine 01/17/2025 1:13 PM EST PREPARE RBC Routine 01/05/2025 1:10 PM EDT ABO/RH DISCREPANCY Routine 01/04/2025 9: 52 AM EDT TYPE AND SCREEN Routine 01/04/2025 9:52 AM EDT CBC W/O DIFFERENTIAL Routine 01/04/2025 9:52 AM EDT COMPREHENSIVE METABOLIC PANEL, PLASMA Routine 01/04/2025 9:52 AM EDT VAS US VENOUS DUPLEX UPPER EXTREMITY BILATERAL Routine 01/02/2025 3:54 PM EDT ECHO, ADULT TRANSTHORACIC COMPLETE Routine 01/02/2025 12:[address] HUMERUS RIGHT W IV CONTRAST Routine 01/02/2025 11:45 AM EDT INSERT PERIPHERAL IV Routine 01/02/2025 11:22 AM EDT CREATINE KINASE, TOTAL, PLASMA Add-On 01/02/2025 11:07 AM EDT BASIC METABOLIC PANEL, PLASMA Routine 01/02/2025 11:07 AM EDT BACTERIAL ID GRAM NEGATIVE Routine 01/02/2025 11:07 AM EDT BLOOD CULTURE (AEROBIC/ANAEROBIC SET) Routine 01/02/2025 11:07 AM EDT OXYGEN THERAPY Routine 01/02/2025 8:00 AM EDT OXYGEN THERAPY Routine 01/01/2025 8:00 PM EDT BLOOD CULTURE (AEROBIC/ANAEROBIC SET) Routine 01/01/2025 10:36 AM EDT OXYGEN THERAPY Routine 01/01/2025 8:00 AM EDT INSERT PERIPHERAL IV Routine 01/01/2025 5:50 AM EDT INSERT PERIPHERAL IV Routine 01/01/2025 5:40 AM EDT CBC W/O DIFFERENTIAL Routine 01/01/2025 5:40 AM EDT BASIC METABOLIC PANEL, PLASMA Routine 01/01/2025 5:40 AM EDT OXYGEN THERAPY Routine 12/31/2024 8:00 PM EDT BACTERIAL ID GRAM POSITIVE Routine 12/31/2024 11:29 AM EDT BLOOD CULTURE (AEROBIC/ANAEROBIC SET) Routine 12/31/2024 11:29 AM EDT VANCOMYCIN, TROUGH, PLASMA Timed 12/31/2024 9:06 AM EDT OXYGEN THERAPY Routine 12/31/2024 8:00 AM EDT INSERT PERIPHERAL IV Routine 12/31/2024 4:40 AM EDT CBC W/O DIFFERENTIAL Routine 12/31/2024 4:40 AM EDT INSERT PERIPHERAL IV Routine 12/31/2024 4:30 AM EDT OXYGEN THERAPY Routine 12/30/2024 8:00 PM EDT INSERT PERIPHERAL IV Routine 12/30/2024 11:29 AM EDT MORPHOLOGY Routine 12/30/2024 10:46 AM EDT BASIC METABOLIC PANEL, PLASMA Routine 12/30/2024 10:46 AM EDT CBC W/O DIFFERENTIAL Routine 12/30/2024 10:46 AM EDT BLOOD CULTURE (AEROBIC/ANAEROBIC SET) Routine 12/30/2024 10:46 AM EDT OXYGEN THERAPY Routine 12/30/2024 8:00 AM EDT OXYGEN THERAPY Routine 12/29/2024 8:00 PM EDT BLOOD CULTURE (AEROBIC/ANAEROBIC SET) Routine 12/29/2024 12:15 PM EDT OXYGEN THERAPY Routine 12/29/2024 8:00 AM EDT CBC WITH AUTO DIFFERENTIAL Routine 12/28/2024 11:32 PM EDT HEMOGLOBIN EVAL W RFLX TO ELECTROPHORESIS AND/OR RBC SOLUBILITY (SO) Routine 12/28/2024 11:32 PM EDT INSERT PERIPHERAL IV Routine 12/28/2024 11:17 PM EDT OXYGEN THERAPY Routine 12/28/2024 8:00 PM EDT INSERT PERIPHERAL IV Routine 12/28/2024 7:13 PM EDT COMPREHENSIVE METABOLIC PANEL, PLASMA Routine 12/28/2024 8:03 AM EDT CBC W/O DIFFERENTIAL Routine 12/28/2024 8:03 AM EDT OXYGEN THERAPY Routine 12/28/2024 8:00 AM EDT TRANSFUSE RED BLOOD CELLS Routine 12/27/2024 9:25 PM EDT OXYGEN THERAPY Routine 12/27/2024 8:00 PM EDT COMPREHENSIVE METABOLIC PANEL, PLASMA Routine 12/27/2024 6:27 PM EDT BACTERIAL ID GRAM POSITIVE Routine 12/27/2024 6:27 PM EDT BLOOD CULTURE (AEROBIC/ANAEROBIC SET) Routine 12/27/2024 6:27 PM EDT OXYGEN THERAPY Routine 12/27/2024 5:28 PM EDT OXYGEN THERAPY Routine 12/27/2024 5:28 PM EDT OXYGEN THERAPY Routine 12/27/2024 5:28 PM EDT PREPARE RBC Routine 12/27/2024 5:17 PM EDT ECG ADULT Routine 12/27/2024 4:57 PM EDT XR CHEST 1 VIEW STAT 12/27/2024 4:25 PM EDT EXTRA TUBE LIGHT GREEN TOP Routine 12/27/2024 4:01 PM EDT EXTRA TUBES Routine 12/27/2024 4:01 PM EDT RETICULOCYTES, BLOOD Add-On 12/27/2024 12:58 PM EDT TYPE AND SCREEN Routine 12/27/2024 12:58 PM EDT CBC W/O DIFFERENTIAL Routine 12/27/2024 12:58 PM EDT INSERT PERIPHERAL IV Routine 12/27/2024 12:55 PM EDT INSERT PERIPHERAL IV Routine 12/24/2024 1:32 PM EDT TYPE AND SCREEN Routine 12/24/2024 12:29 PM EDT CBC W/O DIFFERENTIAL Routine 12/24/2024 12:29 PM EDT INSERT PERIPHERAL IV Routine 12/23/2024 9:39 AM EDT CBC W/O DIFFERENTIAL Routine 12/23/2024 9:30 AM EDT HEPATITIS C VIRUS (HCV) QUANTITATIVE PCR Routine 12/23/2024 9:[address] ABDOMEN PELVIS W IV CONTRAST Routine 12/22/2024 5:37 PM EDT INSERT PERIPHERAL IV Routine 12/22/2024 11:00 AM EDT CBC W/O DIFFERENTIAL Routine 12/22/2024 10:51 AM EDT INSERT PERIPHERAL IV Routine 12/21/2024 11:27 AM EDT CBC W/O DIFFERENTIAL Routine 12/21/2024 11:27 AM EDT COMPREHENSIVE METABOLIC PANEL, PLASMA Routine 12/20/2024 11:15 AM EDT CBC W/O DIFFERENTIAL Routine 12/20/2024 11:15 AM EDT INSERT PERIPHERAL IV STAT 12/20/2024 11:13 AM EDT HEMOGLOBIN Routine 12/19/2024 11:10 PM EDT TRANSFUSE RED BLOOD CELLS Routine 12/19/2024 12:53 PM EDT PREPARE RBC Routine 12/19/2024 9:33 AM EDT MAGNESIUM, PLASMA Routine 12/19/2024 3:2 4 AM EDT COMPREHENSIVE METABOLIC PANEL, PLASMA Routine 12/19/2024 3:24 AM EDT CBC W/O DIFFERENTIAL Routine 12/19/2024 3:24 AM EDT HEMOGLOBIN AND HEMATOCRIT, BLOOD Routine 12/18/2024 10:40 PM EDT TRANSFUSE RED BLOOD CELLS Routine 12/18/2024 7:11 PM EDT BLOOD CULTURE (AEROBIC/ANAEROBIC SET) Routine 12/18/2024 3:23 PM EDT TYPE AND SCREEN Routine 12/18/2024 10:55 AM EDT PREPARE RBC Routine 12/18/2024 10:25 AM EDT LACTATE DEHYDROGENASE, PLASMA Routine 12/18/2024 8:33 AM EDT PHOSPHORUS, PLASMA Routine 12/18/2024 8: 33 AM EDT MAGNESIUM, PLASMA Routine 12/18/2024 8:3 3 AM EDT COMPREHENSIVE METABOLIC PANEL, PLASMA Routine 12/18/2024 8:33 AM EDT CBC W/O DIFFERENTIAL Routine 12/18/2024 8:33 AM EDT NASOPHARYNGEAL RESPIRATORY PANEL Routine 12/17/2024 8:40 AM EDT MULTI DRUG RESISTANCE TEST Routine 12/17/2024 8:40 AM EDT LACTATE DEHYDROGENASE, PLASMA Add-On 12/17/2024 5:17 AM EDT URINALYSIS MICROSCOPIC FOR UA REFLEX STAT 12/17/2024 5:17 AM EDT TROPONIN T, HIGH SENSITIVITY, 2 HOUR, PLASMA Timed 12/17/2024 5:17 AM EDT URINE HERNANDEZ PANEL STAT 12/17/2024 5:17 AM EDT URINALYSIS WITH REFLEX MICROSCOPIC STAT 12/17/2024 5:17 AM EDT URINALYSIS WITH REFLEX MICROSCOPIC AND CULTURE STAT 12/17/2024 5:17 AM EDT BACTERIAL ID GRAM POSITIVE Routine 12/17/2024 5:17 AM EDT BLOOD CULTURE (AEROBIC/ANAEROBIC SET) STAT 12/17/2024 5:17 AM EDT BLOOD CULTURE (AEROBIC/ANAEROBIC SET) STAT 12/17/2024 5:17 AM EDT ECG ADULT STAT 12/17/2024 3:21 AM EDT XR CHEST 1 VIEW STAT 12/17/2024 2:12 AM EDT MORPHOLOGY STAT 12/17/2024 1:58 AM EDT RETICULOCYTES, BLOOD STAT 12/17/2024 1:58 AM EDT TROPONIN T, HIGH SENSITIVITY, 0 HOUR, PLASMA, REFLEX TO 2 HOUR STAT 12/17/2024 1:58 AM EDT BLOOD GAS PANEL, VENOUS STAT 12/17/2024 1:58 AM EDT MAGNESIUM, PLASMA STAT 12/17/2024 1:5 8 AM EDT COMPREHENSIVE METABOLIC PANEL, PLASMA STAT 12/17/2024 1:58 AM EDT PROTHROMBIN TIME(PT) / INR STAT 12/17/2024 1:58 AM EDT CBC WITH AUTO DIFFERENTIAL STAT 12/17/2024 1:58 AM EDT GI FIBROSCAN Routine 12/10/2024 11:41 AM EDT Chronic hepatitis C without hepatic coma HIV 1/2 ANTIBODY/ANTIGEN SCREEN WITH REFLEX TO HIV I/II DIFFERENTIATION Routine 02/10/2024 2:39 PM EST Sickle cell disease with crisis (CMS/HCC) from Last 3 Months or Most Recently Relevant to Health Maintenance Results * (ABNORMAL) CBC and Differential (02/22/2025 1:01 PM EST) Only the most recent of14 resultswithin the time period is included. WBC Count 12.02(H) 3.70 - 10.30 10*3/uL LAB HEMATOLOGY METHOD 02/22/2025 1:37 PM EST [facility] RBC Count 3.11(L) 4.60 - 6.10 10*6/uL LAB HEMATOLOGY METHOD 02/22/2025 1:37 PM EST [facility] HGB 9.0(L) 13.7 - 17.5 g/dL LAB HEMATOLOGY METHOD 02/22/2025 1:37 PM EST [facility] HCT 27.1(L) 40.0 - 51.0 % LAB HEMATOLOGY METHOD 02/22/2025 1:37 PM EST [facility] Platelet Count 474(H) 155 - 369 10*3/uL LAB HEMATOLOGY METHOD 02/22/2025 1:37 PM EST [facility] MCV 87 79 - 98 fL LAB HEMATOLOGY METHOD 02/22/2025 1:37 PM EST [facility] MCH 28.9 26.0 - 32.0 pg LAB HEMATOLOGY METHOD 02/22/2025 1:37 PM EST [facility] MCHC 33.2 30.7 - 35.5 g/dL LAB HEMATOLOGY METHOD 02/22/2025 1:37 PM EST [facility] RDW 18.3(H) 11.5 - 14.5 % LAB HEMATOLOGY METHOD 02/22/2025 1:37 PM EST [facility] MPV 8.5(L) 8.8 - 12.5 fL LAB HEMATOLOGY METHOD 02/22/2025 1:37 PM EST [facility] nRBC 0.3(H) <=0.0 per 100 WBCs LAB HEMATOLOGY METHOD 02/22/2025 1:37 PM EST [facility] Differential Type Automated LAB HEMATOLOGY METHOD 02/22/2025 1:37 PM EST [facility] Neutrophils % 68 % LAB HEMATOLOGY METHOD 02/22/2025 1:37 PM EST [facility] Lymphocytes % 20 % LAB HEMATOLOGY METHOD 02/22/2025 1:37 PM EST [facility] Monocytes % 10 % LAB HEMATOLOGY METHOD 02/22/2025 1:37 PM EST [facility] Eosinophils % 1 % LAB HEMATOLOGY METHOD 02/22/2025 1:37 PM EST [facility] Basophils % 1 % LAB HEMATOLOGY METHOD 02/22/2025 1:37 PM EST [facility] Immature Granulocytes % 0 % LAB HEMATOLOGY METHOD 02/22/2025 1:37 PM EST [facility] Neutrophils Absolute 8.15(H) 1.60 - 6.10 10*3/uL LAB HEMATOLOGY METHOD 02/22/2025 1:37 PM EST [facility] Lymphocytes Absolute 2.35 1.20 - 3.90 10*3/uL LAB HEMATOLOGY METHOD 02/22/2025 1:37 PM EST [facility] Monocytes Absolute 1.19(H) 0.30 - 0.90 10*3/uL LAB HEMATOLOGY METHOD 02/22/2025 1:37 PM EST [facility] Eosinophils Absolute 0.12 0.00 - 0.50 10*3/uL LAB HEMATOLOGY METHOD 02/22/2025 1:37 PM EST [facility] Basophils Absolute 0.17(H) 0.00 - 0.10 10*3/uL LAB HEMATOLOGY METHOD 02/22/2025 1:37 PM EST [facility] Immature Granulocytes Absolute 0.04 0.00 - 0.06 10*3/uL LAB HEMATOLOGY METHOD 02/22/2025 1:37 PM EST [facility] Blood Blood sample taken from central line / Unknown (Port) Long-term Catheter / Unknown 02/22/2025 1:01 PM EST 02/22/2025 1:35 PM EST [facility] - 02/22/2025 1:37 PM EST Therapeutic decision making should be based on absolute values, rather than percentages. Seema Atkinson MD LAB BLOOD ORDERABLES Final Resul t Performing Organization Address [facility] Co de Phone Number HEALTHCARE LAB [address] [place] [address] * Type and screen (02/22/2025 1:01 PM EST) Only the most recent of8 resultswithin the time period is included. ABO/Rh O Positive 02/22/2025 1:36 PM EST [...] ORDERABLES F inal Result Performing Organization Address [facility] Phone Number BLOOD BANK [address] [place] [address], * Morphology (02/13/2025 2:48 AM EST) Only the most recent of9 resultswithin the time period is included. Sickle Cells Slight LAB HEMATOLOGY METHOD 02/13/2025 4:23 AM EST [facility] RBC Morphology RBC Morphology Consistent with Indices and RDW LAB HEMATOLOGY METHOD 02/13/2025 4:23 AM EST [facility] Target Cells Present LAB HEMATOLOGY METHOD 02/13/2025 4:23 AM EST [facility] Platelet Estimate Platelet smear estimate consistent with automated count LAB HEMATOLOGY METHOD 02/13/2025 4:23 AM EST [facility] Blood Venous blood specimen / Unknown Venipuncture / Unknown 02/13/2025 2:48 AM EST 02/13/2025 3:13 AM EST Kirby Villatoro MD LAB BLOOD ORDERABLES Final Re sult Performing Organization Address City/[facility]/ZIP Co de Phone Number HEALTHCARE LAB [address] [place] [address] * Transfuse RBC, Sickle Cell (Hgb S) Negative (02/12/2025 6:13 PM EST) Only the most recent of8 resultswithin the time period is included. Kirby Villatoro MD BLOOD TRANSFUSION ORDERABLES Final Result * Prepare Leukocyte Reduced RBC: 1 Units, Sickle Cell (Hgb S) Negative, Leukocyte reduced (CMV reduced risk) (02/12/2025 10:26 AM EST) Only the most recent of7 resultswithin the time period is included. Pathologist [facility] [place] Product Code [id number] BLOO D BANK Dispense Status Transfused BLOOD BANK Blood Expiration Date [id number] BLOOD BANK Unit Number [id number] B LOOD BANK Product Blood Type 9500 BLOOD BANK Blood Type O- BLOOD BANK Crossmatch Compatible BLOOD BANK Other Kirby Villatoro MD BLOOD BANK PRODUCT ORDERABLES Final Result Performing Organization Address City/State/[facility] de Phone Number BLOOD BANK [address] * (ABNORMAL) Comprehensive metabolic panel (02/12/2025 3:31 AM EST) Only the most recent of24 resultswithin the time period is included. [facility] Glucose, Plasma 107(H) 74 - 99 mg/dL 02/12/2025 4:09 AM EST HEALTHCARE LAB BUN, Plasma 11 7 - 21 mg/dL 02/12/2025 4:09 AM EST [facility]ALTH[facility]ARE LAB Creatinine, Plasma 0.72 0.70 - 1.20 mg/dL 02/12/2025 4:09 AM EST HEALTHCARE LAB BUN/Creatinine Ratio 15 02/12/2025 4:09 AM EST [facility] Sodium, Plasma 133(L) 136 - 145 mmol/L 02/12/2025 4:09 AM EST HEALTHCARE LAB Potassium, Plasma 4.1 3.6 - 4.9 mmol/L 02/12/2025 4:09 AM EST [facility] Chloride, Plasma 102 97 - 107 mmol/L 02/12/2025 4:09 AM EST [facility]ALTHCARE LAB CO2, Plasma 22 22 - 29 mmol/L 02/12/2025 4:09 AM EST [facility] Anion Gap 9 6 - 16 mmol/L 02/12/2025 4:09 AM EST [facility] Total Calcium, Plasma 8.6(L) 8.9 - 10.2 mg/dL 02/12/2025 4:09 AM EST [facility] Total Protein 8.5(H) 6.3 - 7.9 g/dL 02/12/2025 4:09 AM EST [facility] Albumin, Plasma 3.6 3.5 - 5.2 g/dL 02/12/2025 4:09 AM EST [facility] AST, Plasma 51(H) 10 - 50 U/L 02/12/2025 4:09 AM EST [facility] ALT, Plasma 38 10 - 50 U/L 02/12/2025 4:09 AM EST [facility] Alkaline Phosphatase, Plasma 95 40 - 115 U/L 02/12/2025 4:09 AM EST [facility] Total Bilirubin, Plasma 1.2(H) 0.2 - 1.1 mg/dL 02/12/2025 4:09 AM EST [facility] eGFRcr 126.0 mL/min/1.7 3m*2 02/12/2025 4:09 AM [facility] Comment:Reported eGFRcr in m L/min/1.73m2 is based the CKD-EPI 2020 equation that does not use a race coefficient. Blood Venous blood specimen / Unknown Venipuncture / Unknown 02/12/2025 3:31 AM EST 02/12/2025 3:42 AM EST Sandy Barreto MD LAB BLOOD ORDERABLES Final Result [facility] [address] [place] [id number] * (ABNORMAL) Hemoglobin Eval w Rflx to Electrophoresis and/or RBC Solubility (SO) (02/11/2025 6:09 PMEST) Only the most recent of4 resultswithin the time period is included. Hemoglobin A 78.8(L) 95.0 - 97.9 % 02/15/2025 5:21 PM EST [facility] Hemoglobin A2 2.8 2.0 - 3.5 % 02/15/2025 5:21 PM EST [facility] ([facility]) Hemoglobin F 2.4(H) 0.0 - 2.1 % 02/15/2025 5:21 PM EST [facility] ([facility]) Hemoglobin S 16.0(H) 0.0 - 0.0 % 02/15/2025 5:21 PM EST [facility] ([facility]) Hemoglobin C 0.0 0.0 - 0.0 % 02/15/2025 5:21 PM EST [facility] ([facility]) Hemoglobin E 0.0 0.0 - 0.0 % 02/15/2025 5:21 PM EST [facility] ([facility] [facility]) Hemoglobin Other 0.0 0.0 - 0.0 % 02/15/2025 5:21 PM EST [facility] ([facility]) Hemoglobin Evaluation See Note 02/15/2025 5:21 PM EST [facility] ([facility]) Sickle Cell Solubility Reflex Conf Previous 02/15/2025 5:21 PM EST [facility] ([facility]) Hgb Capillary Electrophoresis Reflex Not Performed 02/15/2025 5:21 PM EST [facility] ([facility]) Blood Venous blood specimen / Unknown Venipuncture / Unknown 02/11/2025 6:09 PM EST 02/11/2025 6:15 PM EST [facility] ([facility]) - 02/15/2025 5:21 PM EST Impression: Hb S present Laboratory findings demonstrate [...] by Alpha Globin (HBA1 and HBA2) Deletion/Duplication ([facility] test #[id number]) should be considered. Hb S/beta-plus thalassemia is typically characterized by more Hb S than Hb A with the presence of microcytosis. If microcytosis is present and Hb S/beta-plus thalassemia is suspected, Beta Globin (HBB) Sequencing ([employer] test #[id number]) is suggested. Hemoglobin analysis should be offered to the patient's family members to assess carrier status. Please correlate clinically and in the context of recent transfusion history. Increased levels of Hb F can be seen in both acquired and inherited conditions. Acquired causes include , megaloblastic anemia, hematological neoplasms, aplastic anemia, paroxysmal nocturnal hemoglobinuria, hyperthyroidism, and certain drugs (e.g., hydroxyurea). Inherited conditions include hereditary persistence of hemoglobin and beta thalassemia. Please correlate clinically. INTERPRETIVE INFORMATION: Hemoglobin Evaluation, with Reflex to Electrophoresis and/or RBC Solubility This test was developed and its performance characteristics determined by [facility] [facility]. It has not been cleared or approved [...] not repeated with this submission. Performed By: [facility] [address] [place] [address] [employer] Inspector: Anthony Monterroso MD, PhD CLIA Number: [id number] us Sandy Barreto MD LAB REF LAB BLOOD AND FLUID ORD Final Result [facility] ([facility] [address] [place] [address] * Blood Culture (Aerobic/Anaerobet Set) (02/11/2025 6:09 PM EST) Only the most recent of19 resultswithin the time period is included. Culture No growth at day 5 02/17/2025 3:02 AM EST [facility] Blood Blood sample taken from central line / Unknown (Port) Long-term Catheter / Unknown 02/11/2025 6:09 PM EST 02/11/2025 6:15 PM EST us Sandy Barreto MD LAB MICROBIOLOGY - GENERAL ORDERABLES Final Result [facility] [address] [place] [address] * IR Tunneled CVC Replacement Complete (02/11/2025 3:06 PM EST) Anatomical Region Laterality Modality X-Ray Angiograph y Impressions 02/11/2025 4:32 PM EST Successful exchange double lumen powerline 25 cm tip to cuff . Tip of the catheter is within the cavoatrial junction. CRITICAL NOTE: NO COMMUNICATION: Per this written report. Drafted by Amish Rosales MD on 02/11/2025 4:27 PM Final report signed by Amish Rosales MD on 02/11/2025 4:32 PM Narrative 02/11/2025 4:32 PM EST PROCEDURE: FLUOROSCOPICALLY GUIDED EXCHANGE OF TUNNELED CENTRAL VENOUS CATHETER CLINICAL INDICATION: Flipped powerline AXLE INSPECTOR: AMISH ROSALES M.D. SECONDARY TEST LAB TECHNICIAN: N/A FLUORO TIME: 3.4 minutes MEDICATIONS: Conscious sedation was with dilaudid, Benadryl and Versed IV. Cardiopulmonary monitoring was performed during the procedure by a qualified health care provider. 1% Lidocaine was used for skin and deep subcutaneous local anesthetic ANTIBIOTICS: Antibiotic prophylaxis was not indicated for this procedure. VTE PROPHYLAXIS: No VTE prophylaxis was indicated for this short procedure. Duration of conscious sedation: Sedation Start and Stop Event Time In Sedation Start 1436 Sedation Stop 1506 TECHNIQUE: After discussion of risks and benefits, informed written consent was obtained from the patient. Appropriate time out was done to confirm patient identity, and planned procedure. The patient was placed supine on the fluoro table. The existing tunneled power line catheter as well as the surrounding skin was prepped and draped in the usual sterile manner. 1% lidocaine used for local analgesia.Strict hand hygiene protocol was observed. All personnel in the room were attired in surgical hat and mask. The operators were in surgical hat, mask, sterile gloves, and gowns. The operative site was prepped with 2% chlorhexidine for cutaneous antisepsis followed by sterile barrier draping.Local anesthetic was administered. The existing tunneled hemodialysis catheter was pulled back slightly releasing the cuff with gentle traction. An 0.018 inch Glidewire advantage wire was advanced through the existing tunneled powerline catheter. The existing 5 Greek tunneled by line catheter was removed over the wire. A new 5 Greek 25 cm tip to cuff tunneled power line catheter was advanced over the wire with tip positioned within the proximal right atrium. The wire was removed. The new tunneled power line catheter was secured to the skin with a stay fix device. Each lumen of the catheter was checked for adequate flow. Each lumen was then flushed with heparinized saline. The patient tolerated the procedure well. There were no immediate complications. Patient was transferred back to recovery in stable condition. FINDINGS: Tip of the powerline catheter was curved upwards and stuck at the level of the azygos vein. COMPLICATIONS: No immediate Procedure Note Amish Rosales MD - 02/11/2025 PROCEDURE: FLUOROSCOPICALLY GUIDED EXCHANGE OF TUNNELED CENTRAL VENOUSCATHETER CLINICAL INDICATION: Flipped powerline AXLE INSPECTOR: AMISH ROSALES M.D. SECONDARY TEST LAB TECHNICIAN: N/A FLUORO TIME: 3.4 minutes MEDICATIONS: Conscious sedation was with dilaudid, Benadryl and Versed IV.Cardiopulmonary monitoring was performed during the procedure by aqualified health care provider. 1% Lidocaine was used for skin and deepsubcutaneous local anesthetic ANTIBIOTICS: Antibiotic prophylaxis was not indicated for thisprocedure. VTE PROPHYLAXIS: No VTE prophylaxis was indicated for this shortprocedure. Duration of conscious sedation: Sedation Start and Stop EventTime In Sedation [id number] Sedation [id number] TECHNIQUE: After discussion of risks and benefits, informed written consent wasobtained from the patient. Appropriate time out was done to confirmpatient identity, and planned procedure. The patient was placed supine onthe fluoro table. The existing tunneled power line catheter as well as the surrounding skinwas prepped and draped in the usual sterile manner. 1% lidocaine used forlocal analgesia.Strict hand hygiene protocol was observed. All personnel in the room were attired in surgical hat and mask. Theoperators were in surgical hat, mask, sterile gloves, and gowns. Theoperative site was prepped with 2% chlorhexidine for cutaneous antisepsisfollowed by sterile barrier draping.Local anesthetic was administered.The existing tunneled hemodialysis catheter was pulled back slightlyreleasing the cuff with gentle traction. An 0.018 inch Glidewire advantagewire was advanced through the existing tunneled powerline catheter. Theexisting 5 Greek tunneled by line catheter was removed over the wire. Anew 5 Greek 25 cm tip to cuff tunneled power line catheter was advancedover the wire with tip positioned within the proximal right atrium. Thewire was removed. The new tunneled power line catheter was secured to theskin with a stay fix device. Each lumen of the catheter was checked foradequate flow. Each lumen was then flushed with heparinized saline. The patient tolerated the procedure well. There were no immediatecomplications. Patient was transferred back to recovery in stablecondition. FINDINGS: Tip of the powerline catheter was curved upwards and stuck atthe level of the azygos vein. COMPLICATIONS: No immediate IMPRESSION: Successful exchange double lumen powerline 25 cm tip to cuff . Tip of the catheter is within the cavoatrial junction. CRITICAL NOTE: NO COMMUNICATION: Per this written report. Drafted by Amish Rosales MD on 02/11/2025 4:27 PM Final report signed by Amish Rosales MD on 02/11/2025 4:32 PM Althea Quispe APRN, DNP IMG IR PROCEDURES Ida l Result * (ABNORMAL) CBC W/O Differential (02/11/2025 3:33 AM EST) Only the most recent of24 resultswithin the time period is included. WBC Count 10.60(H) 3.70 - 10.30 10*3/uL LAB HEMATOLOGY METHOD 02/11/2025 3:49 AM EST [facility] RBC Count 2.42(L) 4.60 - 6.10 10*6/uL LAB HEMATOLOGY METHOD 02/11/2025 3:49 AM EST [facility] HGB 7.1(L) 13.7 - 17.5 g/dL LAB HEMATOLOGY METHOD 02/11/2025 3:49 AM EST [facility] HCT 21.0(L) 40.0 - 51.0 % LAB HEMATOLOGY METHOD 02/11/2025 3:49 AM EST [facility] Platelet Count 446(H) 155 - 369 10*3/uL LAB HEMATOLOGY METHOD 02/11/2025 3:49 AM EST [facility] MCV 87 79 - 98 fL LAB HEMATOLOGY METHOD 02/11/2025 3:49 AM EST [facility] MCH 29.3 26.0 - 32.0 pg LAB HEMATOLOGY METHOD 02/11/2025 3:49 AM EST [facility] MCHC 33.8 30.7 - 35.5 g/dL LAB HEMATOLOGY METHOD 02/11/2025 3:49 AM EST [facility] RDW 18.3(H) 11.5 - 14.5 % LAB HEMATOLOGY METHOD 02/11/2025 3:49 AM EST [facility] MPV 8.6(L) 8.8 - 12.5 fL LAB HEMATOLOGY METHOD 02/11/2025 3:49 AM EST [facility] nRBC 0.8(H) <=0.0 per 100 WBCs LAB HEMATOLOGY METHOD 02/11/2025 3:49 AM EST [facility] Blood Venous blood specimen / Unknown Venipuncture / Unknown 02/11/2025 3:33 AM EST 02/11/2025 3:47 AM EST us Sandy Barreto MD LAB BLOOD ORDERABLES Final Result [facility] [address] [place] [address] * (ABNORMAL) Nasopharyngeal Respiratory Panel (02/10/2025 5:38 PM EST) Only the most recent of3 resultswithin the time period is included. Human Rhinovirus/Ent erovirus PCR Result Detected( A) Not Detected 02/10/2025 10:20 PM EST [facility] Swab Nasopharyngeal structure / Unknown Non-blood Collection / Unknown 02/10/2025 5:38 PM EST 02/10/2025 5:49 PM EST Narrative [facility] - 02/10/2025 10:20 PM EST This assay can detect Adenovirus, Coronavirus, Human [...] Respiratory PCR Panel is performed using the [employer] eP[employer] instrument. This test is FDA approved for use with Nasopharyngeal swabs only. This test is used for clinical purposes. It should not be regarded as investigational or for research. The [facility] Clinical Microbiology [facility] is certified under the Clinical Laboratory Improvement Amendments of 1988 (CLIA-88) as qualified to perform high complexity clinical laboratory testing. Sandy Barreto MD LAB MICROBIOLOGY - GENERAL ORDERABLES Final Result Performing Organization Address [facility] Co de Phone Number [facility] [address] [place] [id number] * Vancomycin, Peak, Plasma Please draw ~2 hours after 1300 dose of vancomycin finishes infusing. Consider obtaining level via peripheral stick. If peripheral stick is not feasible, please ensure that line is flushed well prior to drawing level. Than... (02/10/2025 4:07 PM EST) Vancomycin, Peak, Plasma 27.7 20.0 - 40.0 ug/mL 02/10/2025 4:45 PM EST [facility] Blood Venous blood specimen / Unknown Venipuncture / Unknown 02/10/2025 4:07 PM EST 02/10/2025 4:13 PM EST Narrative [facility] - 02/10/2025 4:45 PM EST Therapeutic Peak level: 20-40ug/mL Supra-therapeutic Peak level: >40 ug/mL Sandy Barreto MD LAB BLOOD ORDERABLES Final Result Performing Organization Address [facility] Co de Phone Number [facility] [address] [place] [address] * Streptococcus pneumoniae and Legionella Urinary Antigen (02/10/2025 1:35 PM EST) Only the most recent of2 resultswithin the time period is included. Legionella pneumophila serogroup 1 Antigen Result (Urine) Negative Negative 02/11/2025 7:51 AM EST [facility] Streptococcus pneumoniae Antigen Result (Urine) Negative Negative 02/11/2025 7:51 AM EST [facility] Urine Urine specimen obtained by clean catch procedure / Unknown Non-blood Collection / Unknown 02/10/2025 1:35 PM EST 02/10/2025 2:09 PM EST Sandy Barreto MD LAB MICROBIOLOGY - GENERAL ORDERABLES Final Result Performing Organization Address City/[facility] Co de Phone Number [facility] [address] [place] [address] * Urine Hernandez Panel (02/10/2025 1:35 PM EST) Only the most recent of3 resultswithin the time period is included. Extra Reflex urine culture not indicated 02/10/2025 11:01 PM EST [facility] Comment: Previously prelim verified as Specimen evaluation in progress on 02/10/2025 at 1601 EST. Previously prelim verified as Specimen evaluation in progress on 02/10/2025 at 1701 EST. Previously prelim verified as Specimen evaluation in progress on 02/10/2025 at 1801 EST. Previously prelim verified as Specimen evaluation in progress on 02/10/2025 at 1902 EST. Previously prelim verified as Specimen evaluation in progress on 02/10/2025 at 2001 EST. Previously prelim verified as Specimen evaluation in progress on 02/10/2025 at 2101 EST. Previously prelim verified as Specimen evaluation in progress on 02/10/2025 at 2201 EST. Urine Urine specimen obtained by clean catch procedure / Unknown Non-blood Collection / Unknown 02/10/2025 1:35 PM EST 02/10/2025 2:11 PM EST Sandy Barreto MD LAB URINE ORDERABLES Final Result Performing Organization Address City/[facility] Co de Phone Number [facility] [address] [place] [address] * (ABNORMAL) Urinalysis with reflex microscopic (Culture NOT Included) (02/10/2025 1:35 PM EST) Only the most recent of3 resultswithin the time period is included. Color, Urine Yellow LAB URINALYSIS - AUTOMATED METHOD 02/10/2025 2:14 PM EST [facility] Clarity, Urine Clear LAB URINALYSIS - AUTOMATED METHOD 02/10/2025 2:14 PM [facility] Spec [place], Urine >1.030(H) 1.005 - 1.030 LAB URINALYSIS - AUTOMATED METHOD 02/10/2025 2:14 PM EST [facility] pH, Urine 7.0 5.0 - 8.0 LAB URINALYSIS - AUTOMATED METHOD 02/10/2025 2:14 PM EST [facility] Protein, Urine Trace(A) Negative mg/dL LAB URINALYSIS - AUTOMATED METHOD 02/10/2025 2:14 PM EST [facility] Glucose, Urine Negative Negative mg/dL LAB URINALYSIS - AUTOMATED METHOD 02/10/2025 2:14 PM [facility] Ketones, Urine Negative Negative mg/dL LAB URINALYSIS - AUTOMATED METHOD 02/10/2025 2:14 PM EST [facility] Blood, Urine Negative Negative LAB URINALYSIS - AUTOMATED METHOD 02/10/2025 2:14 PM [facility] Bilirubin, Urine Negative Negative LAB URINALYSIS - AUTOMATED METHOD 02/10/2025 2:14 PM [facility] Urobilinogen, Urine 0.2 0.2 to 1.0 mg/dL LAB URINALYSIS - AUTOMATED METHOD 02/10/2025 2:14 PM [facility] Leukocytes, Urine Negative Negative LAB URINALYSIS - AUTOMATED METHOD 02/10/2025 2:14 PM [facility] Nitrite, Urine Negative Negative LAB URINALYSIS - AUTOMATED METHOD 02/10/2025 2:14 PM [facility] Urine Urine specimen obtained by clean catch procedure / Unknown Non-blood Collection / Unknown 02/10/2025 1:35 PM EST 02/10/2025 2:06 PM EST us Sandy Barreto MD LAB URINE ORDERABLES Final Result [facility] [address] [place] [address] * Vancomycin, Trough, Plasma Please draw ~30 minutes prior to dose due at 1300 on 02/10. Please do NOThold dose awaiting level to return. Consider obtaining level via peripheral stick. If peripheral stick is not feasible, please ensure that line is... (02/10/2025 12:53 PM EST) Only the most recent of2 resultswithin the time period is included. Vancomycin, Trough, Plasma 11.1 10.0 - 20.0 ug/mL 02/10/2025 1:41 PM EST [facility] Blood Venous blood specimen / Unknown Venipuncture / Unknown 02/10/2025 12:53 PM EST 02/10/2025 1:17 PM EST Narrative [facility] - 02/10/2025 1:41 PM EST Therapeutic Trough level: 10-20ug/mL Supra-therapeutic Trough level: >20 ug/mL us Sandy Barreto MD LAB BLOOD ORDERABLES Final Result [facility] [address] [place] [address] * CT Abdomen Pelvis w IV Contrast (02/10/2025 11:36 AM EST) Only the most recent of3 resultswithin the time period is included. Anatomical Region Laterality Modality Abdomen, Pelvis Computed Tomogra phy Impressions 02/10/2025 11:57 AM EST No acute abnormality in the abdomen and pelvis. CRITICAL RESULT: No. COMMUNICATION: Per this written report Drafted by Narinder Mercedes MD on 02/10/2025 11:55 AM Final report signed by Narinder Mercedes MD on 02/10/2025 11:57 AM Narrative 02/10/2025 11:57 AM EST CLINICAL INDICATION: Sepsis TECHNIQUE: Multiple axial CT images were obtained from lung bases through pubic symphysis following administration of IV contrast, Omnipaque 300, 100 mL. Reformatted images in the coronal and sagittal planes were generated from the axial data set to facilitate diagnostic accuracy Total DLP (Dose-Length Product): 572.97 mGy.cm. Please note: The reported value represents the total of one or more individual components during the CT acquisition on this date and at this time, and as such, the same value may appear in more than one CT report depending on the interpreting/reporting physicians. COMPARISON: CT from 01/21/2025. FINDINGS: Lower chest: Please refer to the concurrently performed CT chest for further details. Abdomen/Pelvis: Liver, Gallbladder, Biliary Tract: Similar hepatic morphology. No suspicious pancreatic lesion. Status post cholecystectomy. Nondilated biliary tree. 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 Pancreas: Unremarkable. Adrenal Glands: Unremarkable. Kidneys: Unremarkable. Lymph Nodes: Several small mesenteric and retroperitoneal lymph nodes. Vasculature: The aortoiliac vasculature is normal in caliber and patent throughout GI Tract/Mesentery/Peritoneum: The large and small bowel appear normal in caliber. No evidence of inflammatory change. No suspicious peritoneal/mesenteric findings. Pelvic Viscera: Unremarkable. No suspicious pelvic mass lesions. Free Fluid: No ascites. Musculoskeletal and Body Wall: No clearly aggressive bone lesions. Procedure Note Narinder Mercedes MD - 02/10/2025 CLINICAL INDICATION: Sepsis TECHNIQUE: Multiple axial CT images were obtained from lung bases through pubicsymphysis following administration of IV contrast, Omnipaque 300, 100 mL.Reformatted images in the coronal and sagittal planes were generated fromthe axial data set to facilitate diagnostic accuracy Total DLP (Dose-Length Product): 572.97 mGy.cm. Please note: The reportedvalue represents the total of one or more individual components during theCT acquisition on this date and at this time, and as such, the same valuemay appear in more than one CT report depending on theinterpreting/reporting physicians. COMPARISON: CT from 01/21/2025. FINDINGS: Lower chest: Please refer to the concurrently performed CT chest forfurther details. Abdomen/Pelvis: Liver, Gallbladder, Biliary Tract: Similar hepatic morphology. Nosuspicious pancreatic lesion. Status post cholecystectomy. Nondilatedbiliary tree. 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 Pancreas: Unremarkable. Adrenal Glands: Unremarkable. Kidneys: Unremarkable. Lymph Nodes: Several small mesenteric and retroperitoneal lymph nodes. Vasculature: The aortoiliac vasculature is normal in caliber and patentthroughout GI Tract/Mesentery/Peritoneum: The large and small bowel appear normal incaliber. No evidence of inflammatory change. No suspiciousperitoneal/mesenteric findings. Pelvic Viscera: Unremarkable. No suspicious pelvic mass lesions. Free Fluid: No ascites. Musculoskeletal and Body Wall: No clearly aggressive bone lesions. IMPRESSION: No acute abnormality in the abdomen and pelvis. CRITICAL RESULT: No. COMMUNICATION: Per this written report Drafted by Narinder Mercedes MD on 02/10/2025 11:55 AM Final report signed by Narinder Mercedes MD on 02/10/2025 11:57 AM Sandy Barreto MD IMG CT PROCEDURES Final Res ult * CT Chest w IV Contrast (02/10/2025 11:36 AM EST) Only the most recent of2 resultswithin the time period is included. Anatomical Region Laterality Modality Chest Computed Tomogra phy Impressions 02/10/2025 1:25 PM EST 1. Bibasal atelectatic changes. No lung consolidation or airspace disease. 2. Right central venous catheter, the tip coils along the right brachiocephalic vein with retrograde orientation the tip terminating along the right IJ. CRITICAL RESULT: No. COMMUNICATION: Per this written report. Drafted by Sherly Lopez MD on 02/10/2025 1:16 PM Final report signed by Sherly Lopez MD on 02/10/2025 1:25 PM Narrative 02/10/2025 1:25 PM EST CLINICAL INDICATION: sepsis TECHNIQUE: Multiple CT helical images were obtained from thoracic inlet through upper abdomen with administration of IV contrast. 100 mL of Omnipaque-300 were administered intravenously. The imaging protocol used in this examination was optimized to achieve diagnostic quality with the lowest possible radiation dose in accordance with the principles of ALARA (As Low As Reasonably Achievable). COMPARISON: CT dated 01/23/2025 FINDINGS: Mediastinum and Pleura: Multiple prominent to mildly enlarged lymph nodes in the left supraclavicular region. Calcified right infrahilar lymph nodes. Cardiomegaly. No pleural or pericardial effusion. Lungs: The central airways are patent. Centrilobular emphysema in the bilateral lungs. Bibasal atelectatic changes. No lung consolidation. Upper Abdomen: Please see separate report for findings of the concurrently performed abdominal CT. Musculoskeletal: Similar heterogenous appearance of the visualized osseous structures likely related to the reported sickle cell disease. No acute osseous abnormality. Right central venous catheter, the tip coils along the right brachiocephalic vein with retrograde orientation along the right IJ. Procedure Note Sherly Lopez MD - 02/10/2025 CLINICAL INDICATION: sepsis TECHNIQUE: Multiple CT helical images were obtained from thoracic inlet through upperabdomen with administration of IV contrast. 100 mL of Omnipaque-300 wereadministered intravenously. The imaging protocol used in this examination was optimized to achievediagnostic quality with the lowest possible radiation dose in accordancewith the principles of ALARA (As Low As Reasonably Achievable). COMPARISON: CT dated 01/23/2025 FINDINGS: Mediastinum and Pleura: Multiple prominent to mildly enlarged lymph nodesin the left supraclavicular region. Calcified right infrahilar lymphnodes. Cardiomegaly. No pleural or pericardial effusion. Lungs: The central airways are patent. Centrilobular emphysema in thebilateral lungs. Bibasal atelectatic changes. No lung consolidation. Upper Abdomen: Please see separate report for findings of the concurrentlyperformed abdominal CT. Musculoskeletal: Similar heterogenous appearance of the visualized osseousstructures likely related to the reported sickle cell disease. No acuteosseous abnormality. Right central venous catheter, the tip coils alongthe right brachiocephalic vein with retrograde orientation along the rightIJ. IMPRESSION: 1.Bibasal atelectatic changes. No lung consolidation or airspacedisease. 2.Right central venous catheter, the tip coils along the rightbrachiocephalic vein with retrograde orientation the tip terminating alongthe right IJ. CRITICAL RESULT: No. COMMUNICATION: Per this written report. Drafted by Sherly Lopez MD on 02/10/2025 1:16 PM Final report signed by Sherly Lopez MD on 02/10/2025 1:25 PM us Sandy Barreto MD IM CT PROCEDURES Final Res ult * (ABNORMAL) Bacterial ID Gram Negative (02/09/2025 4:20 PM EST) Only the most recent of4 resultswithin the time period is included. Klebsiella pneumoniae Group Result Detected( AA) Not Detected 02/10/2025 2:35 PM EST [facility] CTXM Result Detected( AA) Not Detected 02/10/2025 2:35 PM EST [facility] Blood Venous blood specimen / Unknown Venipuncture / Unknown 02/09/2025 4:20 PM EST 02/09/2025 4:25 PM EST Narrative [facility] - 02/10/2025 2:35 PM EST Analytes Tested Include: Acinetobacter baumannii, Bacteroides fragilis, Citrobacter, Cronobacter sakazakii, Enterobacter (non-cloacae complex), Enterobacter cloacae complex, Escherichia coli, Fusobacterium necrophorum, Fusobacterium nucleatum, Haemophilus influenze, Klebsiella oxytoca, Klebsiella pneumoniae group, Morganella morganii, Neisseria meningitidis, Proteus, Proteus mirabilis, Pseudomonas aeruginosa, Salmonella, Serratia, Serratia marcescens, Stenotrophomonas maltophilia, Underwood Miguel target, Underwood gram negative target, and CTX-M, IMP, KPC, NDM, OXA and VIM resistance genes. NOTE: A not detected result for a resistance gene does not indicate susceptibility to antimicrobials. Gram Negative bacteria can be resistant to antimicrobials by mechanisms other than carrying the resistance genes detected by the BCID-GN Version 2.0 Panel. . UNDERWOOD MIGUEL: Inclusive of Miguel albicans, Miguel glabrata, Pichia kudriavzevii (formerly Miguel krusei) and Miguel parasilosis only. . OXA: Inclusive of OXA groups 23 and 48 only. . Klebsiella pneumoniae group: Includes Klesiella pneumoniae, Klebsiella quasipneumoniae and Klebsiella varicola. . Reference Value: Not detected for all analytes tested. Sandy Barreto MD LAB MICROBIOLOGY - GENERAL ORDERABLES Final Result [facility] [address] [place] [address] * XR Chest 1 View (02/09/2025 11:21 AM EST) Only the most recent of6 resultswithin the time period is included. Anatomical Region Laterality Modality Chest Digital Radiogra phy Impressions 02/09/2025 3:03 PM EST Mild hazy lung opacities in the bilateral lungs similar to prior. CRITICAL RESULT: No. COMMUNICATION: Per this written report. Drafted by Sherly Lopez MD on 02/09/2025 1:54 PM Final report signed by Sherly Lopez MD on 02/09/2025 3:03 PM Narrative 02/09/2025 3:03 PM EST CLINICAL INDICATION: sickle cell crisis TECHNIQUE: Single AP view of chest. COMPARISON: One day prior FINDINGS: The cardiomediastinal contours unchanged. No pneumothorax or pleural effusion. Mild hazy lung opacities noted in the bilateral lungs similar to prior. No lung consolidation. Procedure Note Sherly Lopez MD - 02/09/2025 CLINICAL INDICATION: sickle cell crisis TECHNIQUE: Single AP view of chest. COMPARISON: One day prior FINDINGS: The cardiomediastinal contours unchanged. No pneumothorax or pleuraleffusion. Mild hazy lung opacities noted in the bilateral lungs similar toprior. No lung consolidation. IMPRESSION: Mild hazy lung opacities in the bilateral lungs similar to prior. CRITICAL RESULT: No. COMMUNICATION: Per this written report. Drafted by Sherly Lopez MD on 02/09/2025 1:54 PM Final report signed by Sherly Lopez MD on 02/09/2025 3:03 PM us Sandy Barreto MD IMG XR PROCEDURES Final Res ult * (ABNORMAL) Basic metabolic panel (02/09/2025 5:41 AM EST) Only the most recent of7 resultswithin the time period is included. Glucose, Plasma 98 74 - 99 mg/dL 02/09/2025 6:11 AM EST [facility] BUN, Plasma 16 7 - 21 mg/dL 02/09/2025 6:11 AM EST [facility] Creatinine, Plasma 1.08 0.70 - 1.20 mg/dL 02/09/2025 6:11 AM EST [facility] BUN/Creatinine Ratio 15 02/09/2025 6:11 AM EST [facility] Sodium, Plasma 134(L) 136 - 145 mmol/L 02/09/2025 6:11 AM EST [facility] Potassium, Plasma 4.4 3.6 - 4.9 mmol/L 02/09/2025 6:11 AM EST [facility] Chloride, Plasma 102 97 - 107 mmol/L 02/09/2025 6:11 AM EST [facility] CO2, Plasma 20(L) 22 - 29 mmol/L 02/09/2025 6:11 AM EST [facility] Anion Gap 12 6 - 16 mmol/L 02/09/2025 6:11 AM EST [facility] Total Calcium, Plasma 8.7(L) 8.9 - 10.2 mg/dL 02/09/2025 6:11 AM EST [facility] eGFRcr 94.7 mL/min/1.7 3m*2 02/09/2025 6:11 AM EST [facility] Comment:Reported eGFRcr in m L/min/1.73m2 is based the CKD-EPI 2020 equation that does not use a race coefficient. Blood Venous blood specimen / Unknown Venipuncture / Unknown 02/09/2025 5:41 AM EST 02/09/2025 5:49 AM EST Sandy Barreto MD LAB BLOOD ORDERABLES Final Result Performing Organization Address City/[facility]/ZIP Co de Phone Number [facility] [address] [place] [address] * Magnesium (02/07/2025 1:50 AM EST) Only the most recent of15 resultswithin the time period is included. Magnesium, Plasma 1.9 1.9 - 2.4 mg/dL 02/07/2025 3:44 AM EST [facility] Blood Venous blood specimen / Unknown Venipuncture / Unknown 02/07/2025 1:50 AM EST 02/07/2025 3:09 AM EST Sandy Barreto MD LAB BLOOD ORDERABLES Final Result [facility] [address] [place] [address] * ECHO, ADULT TRANSTHORACIC LIMITED (02/06/2025 3:10 PM EST) BSA 1.99 m2 LISSETTE ISCV Height 178.0 LISSETTE ISCV Weight 81.0 LISSETTE ISCV LV EDV(MOD-4ch) 124 mL LISSETTE ISCV LV ESV(MOD4ch) 36 mL LISSETTE ISCV EF(MOD-sp4) 71 % LISSETTE ISCV LV EDV(MOD-2ch) 133 mL LISSETTE ISCV LV ESV(MOD2ch) 43 mL LISSETTE ISCV EF(MOD-sp2) 68 % LISSETTE ISCV EDV(MOD-bp) 129 mL LISSETTE ISCV ESV(MOD-bp) 40 mL LISSETTE ISCV EF(MOD-bp) 69 % LISSETTE ISCV TR Vmax 104.6 cm/s LISSETTE ISCV TAPSE 19 mm LISSETTE ISCV TR Max PG 4 mmHG LISSETTE ISCV PA acc time 130 msec LISSETTE ISCV mean PAP 21 mmHg LISSETTE ISCV PA OK(ACCEL) 20.5 mmHg LISSETTE ISCV LVLs ap2 6.9 mm LISSETTE ISCV Anatomical Region Laterality Modality Echocardiography Narrative 02/06/2025 4:11 PM EST Left Ventricle The left ventricle is normal size. There is normal left ventricular myocardial thickness and mass. The left ventricular systolic function is normal. The LVEF is visually estimated at 65 - 70%. The left ventricular wall motion is normal. Right Ventricle The right ventricle is normal in size. The right ventricular systolic function is normal. Right ventricular systolic pressure is normal (<35mmHg). Left Atrium The left atrial size is normal. Right Atrium The right atrial size is normal. Mitral Valve The mitral valve leaflets are normal in appearance with no evidence of mitral valve prolapse. There is no mitral valve vegetation. There is no mitral regurgitation. Tricuspid Valve The tricuspid valve is normal in appearance. There is no tricuspid valve vegetation. There is trace tricuspid regurgitation. Aortic Valve The aortic valve appears to be trileaflet. There is no aortic valve vegetation. There is no valvular regurgitation. Pulmonic Valve The pulmonic valve is normal in appearance. There is no pulmonic valve vegetation. There is no pulmonic regurgitation. Pericardium No pericardial effusion. Study Details A complete transthoracic echocardiogram using two-dimensional (2D), m-mode, color and spectral flow Doppler imaging was performed. During the study the apical and parasternal view was captured. Overall the study quality was adequate. Height: 178.0 cm. Weight: 81.0 kg. BSA: 1.99 m2. Study Recommendation Compared to the most recently available prior study, and allowing for differences in image quality and technique, There is improved right heart size and function. Valve assessment is the same.. us Sandy Barreto MD CV ECHO PROCEDURES Final Re sult * (ABNORMAL) Reticulocytes (02/06/2025 3:21 AM EST) Only the most recent of11 resultswithin the time period is included. Reticulocyte Absolute 152.9(H) 40.0 - 110.0 10*3/uL LAB HEMATOLOGY METHOD 02/06/2025 4:16 AM EST [facility] Immature Reticulocyte Fraction 12.6 3.1 - 17.6 % LAB HEMATOLOGY METHOD 02/06/2025 4:16 AM EST [facility] Reticulocyte Hemoglobin 33.5 28 - 38 pg LAB HEMATOLOGY METHOD 02/06/2025 4:16 AM EST [facility] Reticulocyte Count 5.80(H) 0.90 - 2.50 % LAB HEMATOLOGY METHOD 02/06/2025 4:16 AM EST [facility] Blood Venous blood specimen / Unknown Venipuncture / Unknown 02/06/2025 3:21 AM EST 02/06/2025 3:26 AM EST Sandy Barreto MD LAB BLOOD ORDERABLES Final Result Performing Organization Address City/[facility] Co de Phone Number [facility] [address] [place] [address] * Schistocyte Smear (02/05/2025 9:23 PM EST) Schistocytes No Significant Schistocytes or RBC Fragments seen. No Significant Schistocytes or RBC Fragments seen. LAB HEMATOLOGY METHOD 10:46 PM EST [facility] RBC Morphology Slide Reviewed LAB HEMATOLOGY METHOD 10:46 PM EST [facility] Blood Venous blood specimen / Unknown Venipuncture / Unknown 02/05/2025 9:23 PM EST 02/05/2025 10:19 PM EST Sandy Barreto MD LAB BLOOD ORDERABLES Final Result Performing Organization Address City/[facility]/ZIP Co de Phone Number [facility] [address] [place] [address] * Multi Drug Resistance Test (02/05/2025 7:39 PM EST) Only the most recent of3 resultswithin the time period is included. [facility] Culture No growth at day 1 02/07/2025 7:18 PM EST [facility] Swab (Nares and Venecia Rectal) Non-blood Collection / Unknown 02/05/2025 7:39 PM EST 02/05/2025 7:47 PM EST Narrative [facility] - 02/07/2025 7:18 PM EST This test was developed and its performance characteristics determined by the [facility]. Although the media is FDA-approved, it is not FDA-approved for all specimen types submitted. The FDA has determined that such clearance or approval is not necessary. This test is used for surveillance purposes. It should not be regarded as investigational or for research. The [facility] is certified under the Clinical Laboratory Improvement Amendments of 1988 (CLIA-88) as qualified to perform high complexity clinical laboratory testing. Sandy Barreto MD LAB MICROBIOLOGY - GENERAL ORDERABLES Final Result Performing Organization Address City/[facility] Co de Phone Number [facility] [address] [place] [address] * Troponin T, High Sensitivity, 2 Hour, Plasma (02/05/2025 5:31 PM EST) Only the most recent of3 resultswithin the time period is included. [facility] Troponin T, High Sensitivity, 2 Hour <6 <19 ng/L 02/05/2025 5:54 PM EST [facility] Blood Venous blood specimen / Unknown Venipuncture / Unknown 02/05/2025 5:31 PM EST 02/05/2025 5:34 PM EST us Jayne BERRY LAB BLOOD ORDERABLES Final Resul t Performing Organization Address [facility] Co de Phone Number [facility] [address] [place] [address] * (ABNORMAL) C-reactive protein (02/05/2025 5:31 PM EST) Only the most recent of4 resultswithin the time period is included. [facility] CRP, Plasma 57.6(H) <=8.0 mg/L 02/05/2025 6:43 PM EST [facility] Blood Venous blood specimen / Unknown Venipuncture / Unknown 02/05/2025 5:31 PM EST 02/05/2025 5:34 PM EST Narrative [facility] - 02/05/2025 6:43 PM EST This CRP test is appropriate for assessment of infection, systemic inflammation and/or tissue injury. To assess cardiovascular disease risk order high sensitivity CRP (CRPH). us Sandy Barreto MD LAB BLOOD ORDERABLES Final Result [facility] [address] [place] [address] * CT Lumbar Spine wo IV Contrast (02/05/2025 5:15 PM EST) Anatomical Region Laterality Modality Spine, L-spine Computed Tomogra phy Impressions 02/05/2025 5:57 PM EST No acute fracture or malalignment of the lumbar spine. If clinically warranted, patient's pain may be further evaluated with MRI. Diffuse heterogeneous bony sclerosis and minimally H-shaped lumbar spine vertebral bodies compatible with history of sickle cell disease. CRITICAL RESULT: No. COMMUNICATION: Per this written report. Drafted by Maryann Patel MD on 02/05/2025 5:46 PM Final report signed by Maryann Patel MD on 02/05/2025 5:57 PM Narrative 02/05/2025 5:57 PM EST CLINICAL INDICATION: sickle cell pain crisis, lumbar back pain TECHNIQUE: Imaging of the entire lumbar spine was performed, using spiral technique, without contrast administration. Reformatted images in the coronal and sagittal planes were generated from the axial data set to facilitate diagnostic accuracy and/or surgical planning. Total DLP (Dose-Length Product): 403.62 mGy.cm. Please note: The reported value represents the total of one or more individual components during the CT acquisition on this date and at this time, and as such, the same value may appear in more than one CT report depending on the interpreting/reporting physicians. COMPARISON: 08/14/2024. FINDINGS: Lumbar Spine: Vertebrae: No acute fracture. Redemonstrated mild collapse of the superior and inferior endplates compatible with H shaped appearance of T12 vertebral body. There appears to be minimal collapse of the superior and inferior endplates of L1-L3. Unchanged diffuse sclerosis of the lumbar spine. Alignment: Normal spinal alignment. Paraspinal Soft Tissues: No paraspinal hematoma. Partially imaged calcified spleen, sequelae of splenic autoinfarction. Procedure Note Maryann Patel MD - 02/05/2025 CLINICAL INDICATION: sickle cell pain crisis, lumbar back pain TECHNIQUE: Imaging of the entire lumbar spine was performed, using spiral technique,without contrast administration. Reformatted images in the coronal andsagittal planes were generated from the axial data set to facilitatediagnostic accuracy and/or surgical planning. Total DLP (Dose-Length Product): 403.62 mGy.cm. Please note: The reportedvalue represents the total of one or more individual components during theCT acquisition on this date and at this time, and as such, the same valuemay appear in more than one CT report depending on theinterpreting/reporting physicians. COMPARISON: 08/14/2024. FINDINGS: Lumbar Spine: Vertebrae: No acute fracture. Redemonstrated mild collapse of the superior and inferior endplatescompatible with H shaped appearance of T12 vertebral body. Thereappears to be minimal collapse of the superior and inferior endplates ofL1-L3. Unchanged diffuse sclerosis of the lumbar spine. Alignment: Normal spinal alignment. Paraspinal Soft Tissues: No paraspinal hematoma. Partially imaged calcified spleen, sequelae of splenic autoinfarction. IMPRESSION: No acute fracture or malalignment of the lumbar spine. If clinicallywarranted, patient's pain may be further evaluated with MRI. Diffuse heterogeneous bony sclerosis and minimally H-shaped lumbar spinevertebral bodies compatible with history of sickle cell disease. CRITICAL RESULT: No. COMMUNICATION: Per this written report. Drafted by Maryann Patel MD on 02/05/2025 5:46 PM Final report signed by Maryann Patel MD on 02/05/2025 5:57 PM Jayne BERRY IMG CT PROCEDURES Final Result * SARS-CoV-2 COVID-19/Influenza A,B (02/05/2025 4:25 PM EST) Only the most recent of2 resultswithin the time period is included. SARS CoV-2/COVID-19 RNA PCR Result Not Detected Not Detected 02/05/2025 4:57 PM EST [facility] Comment:For In Vitro Diagnos tic Use Influenza A Virus PCR Result Not Detected Not Detected 02/05/2025 4:57 PM EST [facility] Comment:For In Vitro Diagnos tic Use Influenza B Virus PCR Result Not Detected Not Detected 02/05/2025 4:57 PM EST [facility] Comment:For In Vitro Diagnos tic Use Swab Nasopharyngeal structure / Unknown Non-blood Collection / Unknown 02/05/2025 4:25 PM EST 02/05/2025 4:29 PM EST Narrative [facility] - 02/05/2025 4:57 PM EST This test was performed using the Kt SARS-CoV-2 & Influenza A/B assay on the Tereza Gwendolyn analyzer, an RT-PCR based method. Negative results do not preclude infection with the SARS-CoV-2 virus and should not be the sole basis of a patient treatment/management or public health decision. Follow up testing should be performed according to the current CDC recommendations. The limit of detection (LoD) for this assay is 12 cp/mL SARS-CoV-2 RNA. Use of the Kt SARS-CoV-2 & Influenza A/B assay in an asymptomatic screening population is intended to be used as part of an infection control plan that may include additional preventative measures, such as a predefined serial testing plan or directed testing of high-risk individuals. Negative results should be considered presumptive and do not preclude current or future infection obtained through community transmission or other exposures. Negative results must be considered in the context of an individual's recent exposures, history, presence of clinical signs and symptoms consistent with COVID-19. us Jayne BERRY LAB MICROBIOLOGY - GENERAL ORDER DEE Final Result [facility] [address] [place] [address] * Troponin now and 120 min (02/05/2025 2:57 PM EST) Only the most recent of3 resultswithin the time period is included. [facility] Troponin T, High Sensitivity, 0 Hour <6 <19 ng/L 02/05/2025 3:38 PM EST [facility] Blood Venous blood specimen / Unknown Venipuncture / Unknown 02/05/2025 2:57 PM EST 02/05/2025 3:08 PM EST us Jayne BERRY LAB BLOOD ORDERABLES Final Resul t [facility] [address] [place] [address] * (ABNORMAL) Bacterial ID Gram Positive (02/05/2025 2:57 PM EST) Only the most recent of5 resultswithin the time period is included. Pathologist [facility] [place] Streptococcus Result Detected( AA) Not Detected 02/06/2025 2:19 PM EST [facility] [place] Gram Negative Result Detected( AA) Not Detected 02/06/2025 2:19 PM EST [facility] Blood Venous blood specimen / Unknown Venipuncture / Unknown 02/05/2025 2:57 PM EST 02/05/2025 3:08 PM EST Narrative [facility] - 02/06/2025 2:19 PM EST Analytes include: Bacillus cereus group, Bacillus subtilis group, Corynebacterium, Cutibacterium acnes (P acnes), Enterococcus, Enterococcus faecalis, Enterococcus faecium, Lactobacillus, Listeria, Listeria monocytogenes, Micrococcus, Staphylococcus, Staphylococcus aureus, Staphylococcus epidermidis, Stapylcoccus lugdunesis, Streptococcus, Streptococcus agalactiae, Streptococcus anginosus group, Streptococcus pneumoniae, Streptococcus pyogenes, [place] gram negative target, [place] Miguel target and mecA, mecC, Mine and vanB resistance genes. NOTE: A Not Detected result for result for a resistance gene does not indicate susceptibility to antimicrobials by mechanisms other than carrying the resistance genes detected by the BCID-GP assay. . [place] MIGUEL: Inclusive of Miguel albicans, Miguel glabrata, Pichia kudriavzevii (formerly Miguel krusei) and Miguel parapsilosis only. . [place] GRAM NEGATIVE: Includes but not limited to Acinetobacter, Bacteroides, Enterobacteriaceae, Neisseria, Pseudomonas, Serratia, Stenotrophomonas maltophilia. . Reference Value: Not detected for all analytes tested. us Jayne BERRY LAB MICROBIOLOGY - GENERAL ORDER DEE Final Result Performing Organization Address City/[facility]/ZIP Co de Phone Number [facility] [address] [place] [address] * (ABNORMAL) Creatine Kinase (CK), Total (02/05/2025 2:57 PM EST) Only the most recent of5 resultswithin the time period is included. Creatine Kinase, Plasma 12(L) 49 - 320 U/L 02/05/2025 4:04 PM EST [facility] Blood Venous blood specimen / Unknown Venipuncture / Unknown 02/05/2025 2:57 PM EST 02/05/2025 3:08 PM EST us Jayne BERRY LAB BLOOD ORDERABLES Final Resul t Performing Organization Address [facility] Co de Phone Number [facility] [address] [place] [address] * (ABNORMAL) Procalcitonin (02/05/2025 2:57 PM EST) Only the most recent of4 resultswithin the time period is included. Procalcitonin, Plasma 10.41(H) <0.09 ng/mL 02/05/2025 4:43 PM EST [facility] Blood Venous blood specimen / Unknown Venipuncture / Unknown 02/05/2025 2:57 PM EST 02/05/2025 3:08 PM EST Narrative [facility] - 02/05/2025 4:43 PM EST Procalcitonin concentrations in healthy individuals are <0.09 [...] predict 28 day mortality risk. Please consult [email or web address] for more information. Test performed at [facility]. us Jayne BERRY LAB BLOOD ORDERABLES Final Resul t Performing Organization Address [facility] Phone Number [facility] [address] [place] [address] * (ABNORMAL) PT-INR (02/05/2025 2:57 PM EST) Only the most recent of5 resultswithin the time period is included. Prothrombin Time 17.1(H) 12.0 - 14.3 sec 02/05/2025 3:20 PM EST [facility] INR 1.4(H) 0.9 - 1.1 02/05/2025 3:20 PM EST [facility] Blood Venous blood specimen / Unknown Venipuncture / Unknown 02/05/2025 2:57 PM EST 02/05/2025 3:08 PM EST Narrative [facility] - 02/05/2025 3:20 PM EST OPTIMAL INR RANGES FOR PATIENT ON ORAL ANTICOAGULANT THERAPY Prevention of venous thromboembolism INR 2.0 to 3.0 In patients with heart disease: Atrial fibrillation INR 2.0 to 3.0 Valvular heart disease INR 2.0 to 3.0 Tissue heart valves INR 2.0 to 3.0 Mechanical prosthetic valves INR 2.5 to 3.5 Prevention of recurrent MA INR 2.5 to 3.5 us Jayne BERRY LAB BLOOD ORDERABLES Final Resul t Performing Organization Address [facility] Phone Number [facility] [address] [place] [address] * Phosphorus (02/05/2025 2:57 PM EST) Only the most recent of9 resultswithin the time period is included. Phosphorus, Plasma 3.7 2.5 - 4.5 mg/dL 02/05/2025 3:38 PM EST [facility] Blood Venous blood specimen / Unknown Venipuncture / Unknown 02/05/2025 2:57 PM EST 02/05/2025 3:08 PM EST us Jayne BERRY LAB BLOOD ORDERABLES Final Resul t [facility] [address] [place] [address] * (ABNORMAL) Lipase (02/05/2025 2:57 PM EST) Lipase, Plasma 15(L) 19 - 63 U/L 02/05/2025 3:38 PM EST [facility] Blood Venous blood specimen / Unknown Venipuncture / Unknown 02/05/2025 2:57 PM EST 02/05/2025 3:08 PM EST us Jayne BERRY LAB BLOOD ORDERABLES Final Resul t [facility] [address] [place] [address] * (ABNORMAL) Blood gas panel, venous (02/05/2025 2:57 PM EST) Only the most recent of3 resultswithin the time period is included. pH, Venous 7.34 7.32 - 7.43 LAB HEMATOLOGY METHOD 02/05/2025 3:10 PM EST [facility] pCO2, Venous 45 40 - 55 mmHg LAB HEMATOLOGY METHOD 02/05/2025 3:10 PM EST [facility] pO2, Venous 35 25 - 40 mmHg LAB HEMATOLOGY METHOD 02/05/2025 3:10 PM EST [facility] SO2, Measured, Venous 62(L) 65 - 80 % LAB HEMATOLOGY METHOD 02/05/2025 3:10 PM EST [facility] Base Excess, Venous -1.7 -2.0 - 3.0 mmol/L LAB HEMATOLOGY METHOD 02/05/2025 3:10 PM EST [facility] Bicarbonate, Calculated, Venous 24 22 - 26 mmol/L LAB HEMATOLOGY METHOD 02/05/2025 3:10 PM EST [facility] Hematocrit, Whole Blood 26.3(L) 40.0 - 51.0 % LAB HEMATOLOGY METHOD 02/05/2025 3:10 PM EST [facility] Sodium, Whole Blood 140 136 - 145 mmol/L LAB HEMATOLOGY METHOD 02/05/2025 3:10 PM EST [facility] Potassium, Whole Blood 3.8 3.6 - 4.9 mmol/L LAB HEMATOLOGY METHOD 02/05/2025 3:10 PM EST [facility] Chloride, Whole Blood 106 97 - 107 mmol/L LAB HEMATOLOGY METHOD 02/05/2025 3:10 PM EST [facility] Glucose, Whole Blood 87 74 - 99 mg/dL LAB HEMATOLOGY METHOD 02/05/2025 3:10 PM EST [facility] Lactate, Venous, Whole Blood 0.6 0.5 - 2.2 mmol/L LAB HEMATOLOGY METHOD 02/05/2025 3:10 PM EST [facility] Ionized Calcium, Whole Blood 4.7 4.6 - 5.1 mg/dL LAB HEMATOLOGY METHOD 02/05/2025 3:10 PM EST [facility] Blood Venous blood specimen / Unknown Venipuncture / Unknown 02/05/2025 2:57 PM EST 02/05/2025 3:07 PM EST us Jayne BERRY LAB BLOOD ORDERABLES Final Resul t Performing Organization Address City/[facility]/ZIP Co de Phone Number [facility] [address] [place] [address] * ECG Adult (02/05/2025 2:41 PM EST) Only the most recent of5 resultswithin the time period is included. EKG DIAGNOSIS CLASS Abnormal MUSE ECG Ventricular Rate 97 BPM MUSE ECG Atrial Rate 97 BPM MUSE ECG OK Interval 136 ms MUSE ECG QRSD Interval 74 ms MUSE ECG QT Interval 370 ms MUSE ECG QTC Interval 469 ms MUSE ECG P Ash[place] 59 degrees MUSE ECG R [place] 82 degrees MUSE ECG T Wave Ash[place] 66 degrees MUSE ECG Diagnosis Normal sinus rhythm MUSE ECG Diagnosis Nonspecific T wave abnormality MUSE ECG Diagnosis Abnormal ECG MUSE ECG Diagnosis MUSE ECG Diagnosis Confirmed by Kirby Jones ([id number]) on 02/05/2025 4:56:32 PM MUSE ECG 02/05/2025 2:41 PM EST 02/05/2025 4:56 PM EST us Sandy Barreto MD ECG ORDERABLES Final Resul t MUSE ECG * XR OUTSIDE IMAGES (02/05/2025 11:17 AM EST) Anatomical Region Laterality Modality Radiographic Shavon ging 02/05/2025 11:1 7 AM EST External Provider IMG XR PROCEDURES Edited Resul t - Final * Hepatitis C Virus (HCV) Quantitative PCR (01/30/2025 2:47 PM EST) Only the most recent of2 resultswithin the time period is included. Pathologist [facility] [place] Hepatitis C Virus (HCV) Quantitative Interpretation Not Detected Not Detected. 02/01/2025 1:51 PM EST [facility] Blood Blood sample taken from central line / Unknown (Central Line) Existing Catheter / Unknown 01/30/2025 2:47 PM EST 01/30/2025 2:54 PM EST Narrative [facility] - 02/01/2025 1:51 PM EST The Morton M2000 HCV test is a Real Time [...] assay is FDA approved for clinical use. Rod Balbuena P D DRIVER, DNP LAB BLOOD ORDERABLES Fi nal Result [facility] [address] [place] [address] * (ABNORMAL) Lactate dehydrogenase (01/29/2025 2:45 AM EST) Only the most recent of8 resultswithin the time period is included. Pathologist [facility] [place] LDH, Plasma 462(H) 116 - 250 U/L 01/29/2025 3:30 AM EST [facility] Comment:Hemolyzed, result ma y be falsely increased. Blood Venous blood specimen / Unknown Venipuncture / Unknown 01/29/2025 2:45 AM EST 01/29/2025 2:51 AM EST Chris Aguero PA LAB BLOOD ORDERABLES Final Result Performing Organization Address City/[facility]/ZIP Co de Phone Number [facility] [address] [place] [address] * (ABNORMAL) Haptoglobin (01/29/2025 2:45 AM EST) Only the most recent of6 resultswithin the time period is included. Haptoglobin, Serum <10(L) 40 - 219 mg/dL 01/29/2025 3:59 AM EST [facility] Blood Venous blood specimen / Unknown Venipuncture / Unknown 01/29/2025 2:45 AM EST 01/29/2025 2:51 AM EST Chris BERRY LAB BLOOD ORDERABLES Final Result Performing Organization Address [facility] Co de Phone Number [facility] [address] [place] [address] * ECHO, ADULT TRANSTHORACIC LIMITED (01/28/2025 12:43 PM EST) Pathologist [facility] [place] BSA 2.00 m2 LISSETTE ISCV Height 177.8 LISSETTE ISCV Weight 81.6 LISSETTE ISCV RV base 43 mm LISSETTE ISCV RV Mid 32 mm LISSETTE ISCV RV s' Gregorio 10.4 cm/s LISSETTE ISCV TAPSE 21 mm LISSETTE ISCV Anatomical Region Laterality Modality Echocardiography Narrative 01/28/2025 12:54 PM EST Right Ventricle: The right ventricle is mildly dilated. The right ventricular systolic function is mildly reduced. Compared to the most recently available prior study, and allowing for differences in image quality and technique, RV is less dilated, RV systolic function is improved, and there is less tricuspid regurgitation. Right Ventricle The right ventricle is mildly dilated. The right ventricular systolic function is mildly reduced. The estimated global right ventricular systolic function based upon the focused RV view fractional area change is reduced (<35%). Unable to estimate the right ventricular systolic pressure (RVSP) due to inadequate TR signal. IVC/SVC The IVC was not well visualized, and an assumed pressure of 8mmHg was used for calculations. Tricuspid Valve The tricuspid valve is normal in appearance. There is trace tricuspid regurgitation. Pericardium There is a trace pericardial effusion. There is no echocardiographic evidence of cardiac tamponade. Study Details A limited transthoracic echocardiogram using limited 2D and limited spectral Doppler imaging was performed. Overall the study quality was adequate. Height: 177.8 cm. Weight: 81.6 kg. BSA: 2.00 m2. Study Recommendation Compared to the most recently available prior study, and allowing for differences in image quality and technique, RV is less dilated, RV systolic function is improved, and there is less tricuspid regurgitation. us Chris BERRY CV ECHO PROCEDURES Final R esult * IR Tunneled Central Venous Catheter Placement 5+ Years (01/28/2025 9:41 AM EST) Anatomical Region Laterality Modality X-Ray Angiograph y Impressions 01/28/2025 9:48 AM EST Successful placement of tunneled powerline via the right internal jugular vein. Tip is at the cavoatrial junction. Line is ready for use. CRITICAL RESULT: No. COMMUNICATION: Per this written report. Drafted by Duglas Huerta MD on 01/28/2025 9:44 AM Final report signed by Duglas Huerta MD on 01/28/2025 9:48 AM Narrative 01/28/2025 9:48 AM EST CLINICAL INDICATION: Bacteremia with poor vascular access and need for IV antibiotics and transfusions. The patient brought up to us potentially needing a second line at time so we did a dual line instead of a single lumen line. TECHNIQUE: Telegraph Repeater Installer: Bradley Secondary Special Needs Tutor: Lazaro Medications: IV conscious sedation with continuous physiologic monitoring provided by a qualified healthcare professional using Versed IV and Dilaudid IV. Benadryl 50 mg IV. 1% Lidocaine SQ. Antibiotics: Per nursing record. Duration of Conscious Sedation: Sedation Start 904 Sedation Stop 934 Procedure: After discussion of risks and benefits of the procedure, informed written consent was obtained from the patient. Appropriate time out was done to confirm patient identity and planned procedure. The right neck was prepped and draped in the usual sterile manner. 1% lidocaine used for local analgesia. The internal jugular vein was accessed under ultrasound guidance with micropuncture needle. 0.018 inches wire advanced through the micropuncture needle into the superior vena cava. The micropuncture needle exchanged for the micropuncture introducer. Ultrasound images were sent to permanent storage in PACS. A few centimeters below the clavicle, 1% lidocaine introduced. A small transverse mila in the skin was made with a scalpel. 1% lidocaine instilled from this site to the internal jugular vein access site. After measuring appropriate length of catheter to be placed, the tip was tunneled underneath the skin to the internal jugular vein access site. It was difficult to pass the peel-away sheath over the 0.018 wire. Therefore, we used a micropuncture introducer set to introduce a 0.035 inch wire into the IVC. We dilated the tract at 6 and 8 Greek. Through the dilator, we then removed the 0.035 inch wire and advanced the 0.018 wire into the IVC. Over this, we then advanced the peel-away sheath without issue. The wire and inner dilator of the peel-away sheath were removed. Tunneled powerline was advanced through the peel-away sheath and the peel-away sheath removed. The tunneled catheter was positioned such the tip was within the azygos therefore we reintroduced the 0.018 wire to straighten out the catheter into the cavoatrial junction. The final position of the tip is at the cavoatrial junction. It was secured to the skin with 2-0 prolene suture. Dermabond applied at the venotomy site. Sterile occlusive dressing applied. The port was flushed with heparinized saline. The patient tolerated the procedure well. There were no immediate complications. Device: Double-lumen Powerline cut to 23 cm. COMPARISON: Prior chest CT FINDINGS: Patent right internal jugular vein. COMPLICATION: No. Procedure Note Duglas Huerta MD - 01/28/2025 CLINICAL INDICATION: Bacteremia with poor vascular access and need for IV antibiotics andtransfusions. The patient brought up to us potentially needing a secondline at time so we did a dual line instead of a single lumen line. TECHNIQUE: Telegraph Repeater Installer: Bradley Secondary Special Needs Tutor: Lazaro Medications: IV conscious sedation with continuous physiologic monitoringprovided by a qualified healthcare professional using Versed IV andDilaudid IV. Benadryl 50 mg IV. 1% Lidocaine SQ. Antibiotics: Per nursing record. Duration of Conscious Sedation: Sedation [id number] Sedation [id number] Procedure: After discussion of risks and benefits of the procedure, informed writtenconsent was obtained from the patient. Appropriate time out was done toconfirm patient identity and planned procedure. The right neck was preppedand draped in the usual sterile manner. 1% lidocaine used for localanalgesia. The internal jugular vein was accessed under ultrasoundguidance with micropuncture needle. 0.018 inches wire advanced through themicropuncture needle into the superior vena cava. The micropuncture needleexchanged for the micropuncture introducer. Ultrasound images were sent topermanent storage in PACS. A few centimeters below the clavicle, 1% lidocaine introduced. A smalltransverse mila in the skin was made with a scalpel. 1% lidocaineinstilled from this site to the internal jugular vein access site. Aftermeasuring appropriate length of catheter to be placed, the tip wastunneled underneath the skin to the internal jugular vein access site. Itwas difficult to pass the peel-away sheath over the 0.018 wire. Therefore,we used a micropuncture introducer set to introduce a 0.035 inch wire intothe IVC. We dilated the tract at 6 and 8 Greek. Through the dilator, riri removed the 0.035 inch wire and advanced the 0.018 wire into the IVC.Over this, we then advanced the peel-away sheath without issue. The wire and inner dilator of the peel-away sheath were removed. Tunneledpowerline was advanced through the peel-away sheath and the peel-awaysheath removed. The tunneled catheter was positioned such the tip waswithin the azygos therefore we reintroduced the 0.018 wire to straightenout the catheter into the cavoatrial junction. The final position of thetip is at the cavoatrial junction. It was secured to the skin with 2-0prolene suture. Dermabond applied at the venotomy site. Sterile occlusivedressing applied. The port was flushed with heparinized saline. Thepatient tolerated the procedure well. There were no immediatecomplications. Device: Double-lumen Powerline cut to 23 cm. COMPARISON: Prior chest CT FINDINGS: Patent right internal jugular vein. COMPLICATION: No. IMPRESSION: Successful placement of tunneled powerline via the right internal jugularvein. Tip is at the cavoatrial junction. Line is ready for use. CRITICAL RESULT: No. COMMUNICATION: Per this written report. Drafted by Duglas Huerta MD on 01/28/2025 9:44 AM Final report signed by Duglas Huerta MD on 01/28/2025 9:48 AM Ileana Mayen P D DRIVER IMG IR PROCEDURES Final Result * Light Green Top (01/27/2025 10:52 AM EST) Only the most recent of2 resultswithin the time period is included. Extra Hold for add-ons 01/27/2025 1:01 PM EST [facility] Comment:Auto resulted. Blood Venous blood specimen / Unknown Venipuncture / Unknown 01/27/2025 10:52 AM EST 01/27/2025 10:52 AM EST Miguelina Cummins MD LAB BLOOD ORDERABLES Fin al Result Performing Organization Address City/[facility]/ZIP Co de Phone Number [facility] [address] [place] [address] * (ABNORMAL) N-Terminal Probnp (01/25/2025 8:52 AM EST) N-Terminal, PROBNP, Plasma 2,484(H) 0 - 449 pg/mL 01/25/2025 7:20 PM EST [facility] Blood Venous blood specimen / Unknown Venipuncture / Unknown 01/25/2025 8:52 AM EST 01/25/2025 9:01 AM EST us Chris BERRY LAB BLOOD ORDERABLES Final Result Performing Organization Address City/[facility]/ZIP Co de Phone Number [facility] [address] [place] [address] * (ABNORMAL) Bilirubin, direct (01/25/2025 8:52 AM EST) Only the most recent of2 resultswithin the time period is included. Direct Bilirubin, Plasma 0.8(H) <=0.3 mg/dL 01/25/2025 11:56 AM EST [facility] Blood Venous blood specimen / Unknown Venipuncture / Unknown 01/25/2025 8:52 AM EST 01/25/2025 9:01 AM EST us Chris Aguero PA LAB BLOOD ORDERABLES Final Result [facility] [address] [place] [address] * CT Angio Pulmonary Embolism (01/23/2025 12:34 PM EST) Anatomical Region Laterality Modality Chest Computed Tomogra phy Impressions 01/25/2025 11:32 AM EST No pulmonary embolism. Cardiomegaly with dilatation of the main pulmonary artery which is suggestive of pulmonary artery hypertension. Reflux contrast of the hepatic veins and IVC concerning for increased right heart pressure. Correlation with echocardiogram could be considered. Bilateral mosaic attenuation indicative of small airway disease or small vessel disease. Nodular opacity in the right upper lobe with diffuse groundglass may be infectious or inflammatory. CRITICAL RESULT: No. COMMUNICATION: Per this written report. By electronically signing this report, I, the attending physician, attest that I have personally reviewed the images/data for the above examination(s) and agree with the final edited report. Drafted by Julio Ba MD on 01/25/2025 11:11 AM Final report signed by Brea Rivera MD on 01/25/2025 11:32 AM Narrative 01/25/2025 11:32 AM EST CLINICAL INDICATION: Pulmonary embolism (PE) suspected, high prob TECHNIQUE: Imaging of the chest was performed from thoracic inlet through upper abdomen, using spiral technique, with administration of IV contrast per the pulmonary angiogram protocol. 100 mL of Omnipaque-350 were administered intravenously. Coronal MIP images were reconstructed from this dataset. The imaging protocol used in this examination was optimized to achieve diagnostic quality with the lowest possible radiation dose in accordance with the principles of ALARA (As Low As Reasonably Achievable). COMPARISON: CT chest with IV contrast 01/21/2025 FINDINGS: Evaluation is limited secured to motion artifact. Pulmonary Arteries/Vessels: No definite pulmonary embolism. There is mild cardiomegaly with dilation of the main pulmonary artery measuring up to 4.1 cm (series 9, image 233). Right Heart Strain: Reflux of contrast into the inferior vena cava with prominence of the right ventricle. Mediastinum and Pleura: No mediastinal or hilar adenopathy. Sequela of prior granulomatous disease with calcified subcarinal and right hilar lymph nodes. No pleural or pericardial effusion. No suspicious findings in the thyroid. Lungs: Redemonstrated stable nodular opacity in the periphery of the right upper lobe measuring approximately 10 mm (series 9, image 256). There is nonspecific diffuse groundglass attenuation bilaterally. Atelectatic changes in the right middle lobe and bilateral lower lobes. Upper lung predominant emphysematous changes. Upper Abdomen: No suspicious lesions in the partially visualized upper abdomen. Redemonstrated diffuse calcification of the spleen, likely sequela of sickle cell disease. Musculoskeletal: Diffuse heterogeneous sclerosis throughout the visualized osseous structures, likely related to sickle cell disease. Procedure Note Brea Rivera MD - 01/25/2025 CLINICAL INDICATION: Pulmonary embolism (PE) suspected, high prob TECHNIQUE: Imaging of the chest was performed from thoracic inlet through upperabdomen, using spiral technique, with administration of IV contrast perthe pulmonary angiogram protocol. 100 mL of Omnipaque-350 wereadministered intravenously. Coronal MIP images were reconstructed fromthis dataset. The imaging protocol used in this examination was optimized to achievediagnostic quality with the lowest possible radiation dose in accordancewith the principles of ALARA (As Low As Reasonably Achievable). COMPARISON: CT chest with IV contrast 01/21/2025 FINDINGS: Evaluation is limited secured to motion artifact. Pulmonary Arteries/Vessels: No definite pulmonary embolism. There is mildcardiomegaly with dilation of the main pulmonary artery measuring up to4.1 cm (series 9, image 233). Right Heart Strain: Reflux of contrast into the inferior vena cava withprominence of the right ventricle. Mediastinum and Pleura: No mediastinal or hilar adenopathy. Sequela ofprior granulomatous disease with calcified subcarinal and right hilarlymph nodes. No pleural or pericardial effusion. No suspicious findings inthe thyroid. Lungs: Redemonstrated stable nodular opacity in the periphery of the rightupper lobe measuring approximately 10 mm (series 9, image 256). There isnonspecific diffuse groundglass attenuation bilaterally. Atelectaticchanges in the right middle lobe and bilateral lower lobes. Upper lungpredominant emphysematous changes. Upper Abdomen: No suspicious lesions in the partially visualized upperabdomen. Redemonstrated diffuse calcification of the spleen, likelysequela of sickle cell disease. Musculoskeletal: Diffuse heterogeneous sclerosis throughout the visualizedosseous structures, likely related to sickle cell disease. IMPRESSION: No pulmonary embolism. Cardiomegaly with dilatation of the main pulmonary artery which issuggestive of pulmonary artery hypertension. Reflux contrast of thehepatic veins and IVC concerning for increased right heart pressure.Correlation with echocardiogram could be considered. Bilateral mosaic attenuation indicative of small airway disease or smallvessel disease. Nodular opacity in the right upper lobe with diffuse groundglass may beinfectious or inflammatory. CRITICAL RESULT: No. COMMUNICATION: Per this written report. By electronically signing this report, I, the attending physician, narda I have personally reviewed the images/data for the aboveexamination(s) and agree with the final edited report. Drafted by Julio Ba MD on 01/25/2025 11:11 AM Final report signed by Brea Rivera MD on 01/25/2025 11:32 AM Chris BERRY IMG CT PROCEDURES Final Re sult * (ABNORMAL) Comprehensive Urine Drug Screening, Qualitative Assay, >= 27 Drug Classes (1:36 AM EST) Acetaminophen Positive(A) Negative 01/25/2025 9:17 AM EST [facility] Alprazolam Negative Negative 01/25/2025 9:17 AM EST [facility] Amantadine Negative Negative 01/25/2025 9:17 AM EST [facility] Amitriptyline Negative Negative 01/25/2025 9:17 AM EST [facility] Amphetamine Negative Negative 01/25/2025 9:17 AM EST [facility] Atenolol Negative Negative 01/25/2025 9:17 AM EST [facility] Benzoylecgonine Negative Negative 9:17 AM EST [facility] Bisoprolol Negative Negative 01/25/2025 9:17 AM EST [facility] Bupropion Negative Negative 01/25/2025 9:17 AM EST [facility] Butalbital Negative Negative 01/25/2025 9:17 AM EST [facility] Carbamazepine Negative Negative 01/25/2025 9:17 AM EST [facility] Carisoprodol Negative Negative 01/25/2025 9:17 AM EST [facility] Chlorpheniramine Negative Negative 01/26/20 9:17 AM EST [facility] Citalopram Negative Negative 01/25/2025 9:17 AM EST [facility] Clindamycin Negative Negative 01/25/2025 9:17 AM EST [facility] Clonidine Negative Negative 01/25/2025 9:17 AM EST [facility] Clopidogrel / Ticlopidine Negative Negative 01/25/2025 9:17 AM EST [facility] Cocaethylene Negative Negative 01/25/2025 9:17 AM EST [facility] Cocaine Negative Negative 01/25/2025 9:17 AM EST [facility] Codeine Negative Negative 01/25/2025 9:17 AM EST [facility] Cyclobenzaprine Negative Negative 9:17 AM EST [facility] Desvenlafaxine Negative Negative 01/25/2025 9:17 AM EST [facility] Dextromethorphan Negative Negative 01/26/20 9:17 AM EST [facility] Diazepam Negative Negative 01/25/2025 9:17 AM EST [facility] Diltiazem Negative Negative 01/25/2025 9:17 AM EST [facility] Diphenhydramine Negative Negative 9:17 AM EST [facility] Doxepine Negative Negative 01/25/2025 9:17 AM EST [facility] Doxylamine Negative Negative 01/25/2025 9:17 AM EST [facility] EDDP-Methadone metabolite Negative Negative 01/25/2025 9:17 AM EST [facility] Fentanyl Negative Negative 01/25/2025 9:17 AM EST [facility] Fluconazole Negative Negative 01/25/2025 9:17 AM EST [facility] Fluoxetine Negative Negative 01/25/2025 9:17 AM EST [facility] Guaifenesin Positive(A) Negative 01/25/2025 9:17 AM EST [facility] Haloperidol Negative Negative 01/25/2025 9:17 AM EST [facility] Heroin/6-VICKIE Negative Negative 01/25/2025 9:17 AM EST [facility] Hydrocodone Negative Negative 01/25/2025 9:17 AM EST [facility] Hydroxyzine / Cetirizine metabolite Negative Negative 01/25/2025 9:17 AM EST [facility] Ibuprofen Negative Negative 01/25/2025 9:17 AM EST [facility] Imipramine Negative Negative 01/25/2025 9:17 AM EST [facility] Ketamine Negative Negative 01/25/2025 9:17 AM EST [facility] Labetolol Negative Negative 01/25/2025 9:17 AM EST [facility] Lamotrigine Negative Negative 01/25/2025 9:17 AM EST [facility] Levetiracetam Negative Negative 01/25/2025 9:17 AM EST [facility] Lidocaine Negative Negative 01/25/2025 9:17 AM EST [facility] MDA Negative Negative 01/25/2025 9:17 AM EST [facility] MDMA Negative Negative 01/25/2025 9:17 AM EST [facility] Memantine Negative Negative 01/25/2025 9:17 AM EST [facility] Meperidine Negative Negative 01/25/2025 9:17 AM EST [facility] Meprobamate Negative Negative 01/25/2025 9:17 AM EST [facility] Metaxalone Negative Negative 01/25/2025 9:17 AM EST [facility] Methamphetamine Negative Negative 9:17 AM EST [facility] Methocarbamol Positive(A) Negative 01/25/2025 9:17 AM EST [facility] Methylecgonine Negative Negative 01/25/2025 9:17 AM EST [facility] Metoclopramide Negative Negative 01/25/2025 9:17 AM EST [facility] Metoprolol Negative Negative 01/25/2025 9:17 AM EST [facility] Metronidazole Negative Negative 01/25/2025 9:17 AM EST [facility] Midazolam Negative Negative 01/25/2025 9:17 AM EST [facility] Midazolam Metabolite Negative Negative 01/25/2025 9:17 AM EST [facility] Mirtazapine Negative Negative 01/25/2025 9:17 AM EST [facility] Misc Test Result Negative Negative 01/26/20 9:17 AM EST [facility] Naproxen Negative Negative 01/25/2025 9:17 AM EST [facility] Nefazodone Negative Negative 01/25/2025 9:17 AM EST [facility] Norfentanyl Negative Negative 01/25/2025 9:17 AM EST [facility] Nortriptyline Negative Negative 01/25/2025 9:17 AM EST [facility] Ordanstron Negative Negative 01/25/2025 9:17 AM EST [facility] Oxcarbazepine Negative Negative 01/25/2025 9:17 AM EST [facility] Oxycodone Positive(A) Negative 01/25/2025 9:17 AM EST [facility] Paroxethine Negative Negative 01/25/2025 9:17 AM EST [facility] Phenobarbital Negative Negative 01/25/2025 9:17 AM EST [facility] Phentermine Negative Negative 01/25/2025 9:17 AM EST [facility] Phenytoin Negative Negative 01/25/2025 9:17 AM EST [facility] Primidone Negative Negative 01/25/2025 9:17 AM EST [facility] Promethazine Negative Negative 01/25/2025 9:17 AM EST [facility] Propofol Negative Negative 01/25/2025 9:17 AM EST [facility] Propranolol Negative Negative 01/25/2025 9:17 AM EST [facility] Quetiapine Negative Negative 01/25/2025 9:17 AM EST [facility] Quinine Negative Negative 01/25/2025 9:17 AM EST [facility] Rantidine Negative Negative 01/25/2025 9:17 AM EST [facility] Sertraline Negative Negative 01/25/2025 9:17 AM EST [facility] Spironolactone Negative Negative 01/25/2025 9:17 AM EST [facility] Tizanidine Negative Negative 01/25/2025 9:17 AM EST [facility] Topiramate Negative Negative 01/25/2025 9:17 AM EST [facility] Tramadol Negative Negative 01/25/2025 9:17 AM EST [facility] Trazadone/ Trazadone metabolite Negative Negative 01/25/2025 9:17 AM EST [facility] Trimethoprim Negative Negative 01/25/2025 9:17 AM EST [facility] Valproic Acid Negative Negative 01/25/2025 9:17 AM EST [facility] Venlafaxine Negative Negative 01/25/2025 9:17 AM EST [facility] Verapamil Negative Negative 01/25/2025 9:17 AM EST [facility] Zolpidem Negative Negative 01/25/2025 9:17 AM EST [facility] Xylazine Negative Negative 01/25/2025 9:17 AM EST [facility] Urine Urine specimen obtained by clean catch procedure / Unknown Non-blood Collection / Unknown 01/23/2025 11:36 AM EST 01/23/2025 11:44 AM EST us Chris BERRY LAB URINE ORDERABLES Final Result Performing Organization Address City/State/[facility] Co de Phone Number [facility] [address] [place] [address] * PERIPHERAL IV ([employer] L[employer]) (01/22/2025 2:10 PM EST) Only the most recent of17 resultswithin the time period is included. Narrative Brittany Arauz RN - 01/22/2025 2:10 PM EST Brittany Arauz RN 01/22/2025 2:10 PM Insert peripheral IV Performed by: Brittany Arauz RN Authorized by: Miguelina Cummins MD Hand hygiene: Hand hygiene performed prior to insertion Inserted using aseptic techniques: Yes Preparation: Skin prepped with chg Orientation: Right, upper and lateral Location: Arm Catheter placed: Peripheral IV Catheter size: 20g/2.00in Line Technique: Ultrasound Guidance Number of attempts: 1 IV flushes: Without difficulty and positive blood return noted and IV luer locked Patient tolerance: Patient tolerated the procedure well and there were no complications Patient comfort measures used: Distraction and position of comfort IV site covered with: Transparent semipermeable dressing Education provided to: Patient us Miguelina Cummins MD IV THERAPY ORDERABLES Fi nal Result * VAS US Venous Duplex Upper Extremity Bilateral (01/22/2025 12:26 PM EST) Only the most recent of2 resultswithin the time period is included. Anatomical Region Laterality Modality Upper Extremities, Vascular Bilateral Ultr asound Impressions 01/22/2025 1:50 PM EST Deep venous thrombosis in the left brachial vein. Superficial venous thrombosis in the basilic veins bilaterally. CRITICAL RESULT: No. COMMUNICATION: Per this written report. Preliminary report signed by Pantera Echavarria DO on 01/22/2025 1:24 PM By electronically signing this report, I, the attending physician, attest that I have personally reviewed the images/data for the above examination(s) and I agree with the final edited report. Drafted by Pantera Echavarria DO on 01/22/2025 1:21 PM Final report signed by Narinder Mercedes MD on 01/22/2025 1:50 PM Narrative 01/22/2025 1:50 PM EST CLINICAL INDICATION: Acute Limb Swelling TECHNIQUE: Multiplanar hernandez scale and Doppler vascular sonographic imaging and spectral analysis of the veins of bilateral upper extremity, from shoulder to elbow, without and with compression. COMPARISON: Ultrasound 01/02/2025 FINDINGS: Occluded basilic veins bilaterally. Deep venous thrombosis of the left brachial vein at the level of proximal and mid upper arm. Procedure Note Narinder Mercedes MD - 01/22/2025 CLINICAL INDICATION: Acute Limb Swelling TECHNIQUE: Multiplanar hernandez scale and Doppler vascular sonographic imaging andspectral analysis of the veins of bilateral upper extremity, from shoulderto elbow, without and with compression. COMPARISON: Ultrasound 01/02/2025 FINDINGS: Occluded basilic veins bilaterally. Deep venous thrombosis of the leftbrachial vein at the level of proximal and mid upper arm. IMPRESSION: Deep venous thrombosis in the left brachial vein. Superficial venous thrombosis in the basilic veins bilaterally. CRITICAL RESULT: No. COMMUNICATION: Per this written report. Preliminary report signed by Pantera Echavarria DO on 01/22/2025 1:24 PM By electronically signing this report, I, the attending physician, attestthat I have personally reviewed the images/data for the aboveexamination(s) and I agree with the final edited report. Drafted by Pantera Echavarria DO on 01/22/2025 1:21 PM Final report signed by Narinder Mercedes MD on 01/22/2025 1:50 PM Carleen BERRY CV VASCULAR PROCEDURES Final R esult * ECHO, ADULT TRANSTHORACIC COMPLETE (01/22/2025 10:57 AM EST) BSA 2.05 m2 LISSETTE ISCV Height 180.0 LIS[facility]TE ISCV Weight 85.0 LISSETTE ISCV LV EDV(MOD-4ch) 172 mL LISSETTE ISCV LV ESV(MOD4ch) 71 mL LISSETTE ISCV EF(MOD-sp4) 59 % LISSETTE ISCV LV EDV(MOD-2ch) 154 mL LISSETTE ISCV LV ESV(MOD2ch) 82 mL LISSETTE ISCV EF(MOD-sp2) 47 % LISSETTE ISCV EDV(MOD-bp) 163 mL LISSETTE ISCV ESV(MOD-bp) 77 mL LISSETTE ISCV EF(MOD-bp) 53 % LISSETTE ISCV MV E Vmax 75.8 cm/s LISSETTE ISCV MV A Vmax 70.7 cm/s LISSETTE ISCV MV E/A 1.1 cm/s LISSETTE ISCV TR Vmax 357.0 cm/s LIS[facility]TE ISCV LA dimension 41 mm L[facility]TE ISCV TAPSE 23 mm [facility]TE ISCV TR Max PG 51 mmHG L[facility]TE ISCV PA acc time 100 msec LIS[facility]TE ISCV mean PAP 34 mmHg L[facility]TE ISCV MV dec time 170 ms LIS[facility]TE ISCV MV P1/2t 49 ms LIS[facility]TE ISCV MVA(P1/2t) 4.5 cm2 [facility] ISCV Ao Root Diam 35 mm [facility]TE ISCV PA OK(ACCEL) 34.9 mmHg L[facility]TE ISCV LVLs ap2 8.4 mm LISSETTE ISCV LVIDd 25 mm LISSETTE ISCV IVSd 10 mm LISSETTE ISCV LVPWd 14 mm LISSETTE ISCV LV MASS(C)D 85 g LISSETTE ISCV [facility] CV ECHO LV MASS INDEX 41 g/m2 LISSETTE ISCV LV RWT 0.96 mm LISSETTE ISCV LVIDs 37 mm LISSETTE ISCV RVSP 66 mmHg L[facility]TE ISCV RAP systole 15 mmHg LISSETTE ISCV Anatomical Region Laterality Modality Echocardiography Narrative 01/22/2025 2:24 PM EST Compared to the most recently available prior study, and allowing for differences in image quality and technique, RVSP is higher with evidence of elevated RA pressure. There is no definite echocardiographic evidence of endocarditis. Left Ventricle There is normal left ventricular myocardial thickness and mass. The left ventricular systolic function is normal. The LVEF as measured by biplane volume is 53%. The diastolic function is indeterminate. The left ventricular wall motion is normal. Right Ventricle The right ventricle is severely dilated. The right ventricular systolic function is moderately reduced. The estimated global right ventricular systolic function based upon the focused RV view fractional area change is reduced (<35%). Right ventricular systolic pressure is moderately elevated (50-70mmHg). Left Atrium The left atrium is dilated by visual assessment. The interatrial septum bows toward the LA consistent with elevated right atrial pressure. Right Atrium The right atrium is severely dilated by visual assessment. IVC/SVC Based on the IVC size and respiratory variation, the estimated right atrial pressure is 15mmHg. Mitral Valve The mitral valve leaflets are normal in appearance with no evidence of mitral valve prolapse. There is no mitral valve vegetation. There is no mitral regurgitation. There is no mitral stenosis. Tricuspid Valve The tricuspid valve is normal in appearance. There is no tricuspid valve vegetation. There is mild to moderate tricuspid regurgitation. There is no tricuspid stenosis. Aortic Valve The aortic valve appears grossly normal. There is no aortic valve vegetation. There is no valvular regurgitation. There is no hemodynamically significant valvular aortic stenosis. Pulmonic Valve The pulmonic valve is normal in appearance. There is no pulmonic valve vegetation. There is no pulmonic regurgitation. There is no pulmonic stenosis. Pericardium Evidence of epicardial fat. No pericardial effusion. Great Vessels The aortic root is normal in size. The sinus of Valsalva (aortic root) diameter is 35 mm by leading edge to leading edge method. In the maximally visualized portion, the aortic arch appears normal in size. The main pulmonary artery is not well visualized. Study Details A complete transthoracic echocardiogram using two-dimensional (2D), m-mode, color and spectral flow Doppler imaging was performed. During the study the apical, parasternal, subcostal and suprasternal view was captured. Overall the study quality was adequate. Height: 180.0 cm. Weight: 85.0 kg. BSA: 2.05 m2. Study Recommendation There is no definite echocardiographic evidence of endocarditis. Compared to the most recently available prior study, and allowing for differences in image quality and technique, there is worsening RV size, function and RVSP.. us Carleen BERRY CV ECHO PROCEDURES Final Resul t * (ABNORMAL) Respiratory Culture and Gram Stain (01/21/2025 2:49 AM EST) Culture Light Growth 01/23/2025 10:01 AM EST [facility] Culture Mixed upper respiratory sharon(A) 01/23/2025 10:01 AM EST [facility] Comment:The organism value f or this result has been updated. These results have been appended to the previously preliminary verified report. Gram Stain Result Fewer than 10 Epithelial cells/LPF(A) 01/23/2025 10:01 AM EST [facility] Gram Stain Result Fewer than 25 WBC/LPF(A) 01/23/2025 10:01 AM EST [facility] Gram Stain Result Few Budding yeast(A) 01/23/2025 10:01 AM EST [facility] Sputum Coughed sputum specimen / Unknown Non-blood Collection / Unknown 01/21/2025 2:49 AM EST 01/21/2025 3:18 AM EST us Carleen BERRY LAB MICROBIOLOGY - GENERAL ORD ERABLES Final Result [facility] [address] [place] [address] * (ABNORMAL) POCT glucose meter (01/20/2025 2:57 PM EST) POCT Glucose 133(H) 74 - 99 mg/dL 01/20/2025 2:59 PM EST [email or web address] Comment:Accuracy of a glucos e result obtained from a capillary whole blood specimen relies upon adequate, non-compromised capillary blood flow. If the capillary glucose result is not consistent with the patient's clinical signs and symptoms, glucose testing should be repeated with either an arterial or venous sample on the glucometer or sent to the main labortory for testing. Comment 01/20/2025 2:59 PM EST [facility] Special Needs Tutor ID Jimena Islas 01/20/2025 2:59 PM EST [facility] Device ID [id number] 01/20/2025 2:59 PM EST [facility] Specimen Type POC Capillary 01/20/2025 2:59 PM EST [facility] Blood Capillary blood specimen / Unknown 01/20/2025 2:57 PM EST 01/20/2025 2:59 PM EST us Janette Herrera MD LAB POINT OF CARE TE ST DOCKED DEVICE UNSOLICITED RESULTS Final Result Performing Organization Address City/[facility]/ZIP Co de Phone Number [facility] [address] [place] [address] * Lactate, venous (01/20/2025 11:17 AM EST) Lactate, Venous, Whole Blood 1.6 0.5 - 2.2 mmol/L LAB HEMATOLOGY METHOD 01/20/2025 11:28 AM EST [facility] Blood Venous blood specimen / Unknown Venipuncture / Unknown 01/20/2025 11:17 AM EST 01/20/2025 11:26 AM EST us Carleen BERRY LAB BLOOD ORDERABLES Final Res ult Performing Organization Address City/[facility]/ZIP Co de Phone Number [facility] [address] [place] [address] * (ABNORMAL) Iron & Total Iron Binding Capacity, Plasma (Includes Transferrin) (01/19/2025 3:54 PM EST) Iron, Plasma 104 50 - 170 ug/dL 01/19/2025 8:11 PM EST [facility] Transferrin, Plasma 131(L) 200 - 360 mg/dL 01/19/2025 8:11 PM EST [facility] Total Iron Binding Capacity, Plasma 164(L) 240 - 450 ug/mL 01/19/2025 8:11 PM EST [facility] Transferrin Saturation 63(H) 14 - 50 % 01/19/2025 8:11 PM EST [facility] Blood Venous blood specimen / Unknown Venipuncture / Unknown 01/19/2025 3:54 PM EST 01/19/2025 7:09 PM EST us Carleen Randolph PA LAB BLOOD ORDERABLES Final Res ult Performing Organization Address City/[facility] Co de Phone Number [facility] [address] [place] [address] * (ABNORMAL) APTT (01/18/2025 3:07 AM EST) aPTT 39(H) 25 - 35 sec 01/18/2025 3:29 AM EST [facility] Blood Venous blood specimen / Unknown Venipuncture / Unknown 01/18/2025 3:07 AM EST 01/18/2025 3:11 AM EST Suze Perez APRN LAB BLOOD ORDERABLES Final R esult Performing Organization Address [facility] de Phone Number [facility] [address] [place] [address] * Strep Screen (01/17/2025 3:20 PM EST) Pathologist [facility] [place] Group A Streptococcus PCR Result Not Detected Not Detected 01/17/2025 3:52 PM EST [facility] Comment:For In Vitro Diagnos tic Use Swab Pharyngeal structure / Unknown Non-blood Collection / Unknown 01/17/2025 3:20 PM EST 01/17/2025 3:27 PM EST Jhonatan Martinez MD LAB MICROBIOLOGY - GENERAL ORDERABLES Final Result Performing Organization Address [facility] Co de Phone Number [facility] [address] [place] [address] * XR Chest 2 Views (01/17/2025 2:27 PM EST) Anatomical Region Laterality Modality Chest Digital Radiogra phy Impressions 01/17/2025 2:36 PM EST No acute focal airspace consolidation. CRITICAL RESULT: No. COMMUNICATION: Per this written report. Drafted by Filiberto Boston MD on 01/17/2025 2:34 PM Final report signed by Filiberto Boston MD on 01/17/2025 2:36 PM Narrative 01/17/2025 2:36 PM EST CLINICAL INDICATION: rule out acute chest, sickle cell patient TECHNIQUE: XR CHEST 2 VIEWS COMPARISON: 12/27/2024. CT abdomen pelvis 12/22/2024. FINDINGS: No acute focal airspace consolidation. No pneumothorax. Cardiomediastinal silhouette is grossly within normal limits. No acute osseous abnormality. Redemonstration diffuse splenic calcification/mineralization. Procedure Note Filiberto Boston MD - 01/17/2025 CLINICAL INDICATION: rule out acute chest, sickle cell patient TECHNIQUE: XR CHEST 2 VIEWS COMPARISON: 12/27/2024. CT abdomen pelvis 12/22/2024. FINDINGS: No acute focal airspace consolidation. No pneumothorax. Cardiomediastinalsilhouette is grossly within normal limits. No acute osseous abnormality.Redemonstration diffuse splenic calcification/mineralization. IMPRESSION: No acute focal airspace consolidation. CRITICAL RESULT: No. COMMUNICATION: Per this written report. Drafted by Filiberto Boston MD on 01/17/2025 2:34 PM Final report signed by Filiberto Boston MD on 01/17/2025 2:36 PM us Jhonatan Martinez MD IMG XR PROCEDURES Final Res ult * USGPIV (ULTRASOUND GUIDED PERIPHERAL IV) (01/17/2025 1:13 PM EST) Narrative Glenna Max MD - 01/17/2025 1:13 PM EST Glenna Max MD 01/24/2025 10:33 AM USGPIV Performed by: Michoacano Mccormick PA Authorized by: Glenna Max MD Consent obtained: Verbal Consent given by: Patient Risks, benefits, and alternatives were discussed: yes Risks discussed: Bleeding, pain, infection and nerve damage Patient identity confirmed: Verbally with patient and arm band Supervision: Attending Supervision?: no Skin preparation: Chlorhexidine Sedation type: None Anesthesia method: None USGIV placed in L basilic vein. Confirmed vein w/compressibility, thin, walled, followed length of vessel in proximity of planned placement and did not note thrombus, hematoma. Catheter: 20g long catheter, draws back and flushes well, visualized inside of vessel. Pt tolerated procedure well. Lab/bcx tubes were collected prior to flushing and were handed to JAMAL Randolph. Procedure completion: Tolerated well, no immediate complications us Glenna Max MD IN CLINIC/BEDSIDE ORDERABLES Final Result * ABO/Rh Type (01/04/2025 9:52 AM EDT) ABO/Rh O Positive No defined reference value 01/04/2025 5:14 PM EDT [facility]OD [facility] Blood Venous blood specimen / Unknown Venipuncture / Unknown 01/04/2025 9:52 AM EDT 01/04/2025 9:58 AM EDT us Aric Lee MD LAB BLOOD BANK TEST ORDERABLES Final Result BLOOD BANK [address] [place] [address], * ECHO, ADULT TRANSTHORACIC COMPLETE (01/02/2025 12:29 PM EDT) BSA 2.13 m2 LIS[facility]TE ISCV Height 183.0 LIS[facility]TE ISCV Weight 91.0 LISSETTE ISCV LVIDd 57 mm LIS[facility]TE ISCV LVIDs 36 mm LISSETTE ISCV IVSd 12 mm LISSETTE ISCV LVPWd 12 mm LISSETTE ISCV LV MASS(C)D 288 g LISSETTE ISCV [facility] CV ECHO LV MASS INDEX 135 g/m2 LISSETTE ISCV LV RWT 0.42 mm LISSETTE ISCV LV EDV(MOD-4ch) 176 mL LISSETTE ISCV LV ESV(MOD4ch) 72 mL LISSETTE ISCV EF(MOD-sp4) 59 % LISSETTE ISCV LV EDV(MOD-2ch) 198 mL LISSETTE ISCV LV ESV(MOD2ch) 71 mL LISSETTE ISCV EF(MOD-sp2) 64 % LISSETTE ISCV EDV(MOD-bp) 187 mL LISSETTE ISCV ESV(MOD-bp) 72 mL LISSETTE ISCV EF(MOD-bp) 62 % LISSETTE ISCV MV E Vmax 116.0 cm/s LISSETTE ISCV MV A Vmax 120.0 cm/s ILSSETTE ISCV MV E/A 1.0 cm/s LISSETTE ISCV TR Vmax 114.6 cm/s LISSETTE ISCV LA dimension 36 mm LISSETTE ISCV TAPSE 30 mm LISSETTE ISCV TR Max PG 5 mmHG LISSETTE ISCV PA acc time 120 msec LISSETTE ISCV mean PAP 25 mmHg LISSETTE ISCV MV dec time 120 ms LISSETTE ISCV MV P1/2t 35 ms LISSETTE ISCV MVA(P1/2t) 6.3 cm2 [facility]TE ISCV Ao Root Diam 36 mm LISSETTE ISCV PA OK(ACCEL) 25.9 mmHg LISSETTE ISCV LVLs ap2 7.1 mm LISSETTE ISCV LV Lat e' Velocity 10.0 cm/s LISSETTE ISCV LV Sept e' Gregorio 8.0 cm/s LISSETTE ISCV Lat E/e' 11.6 LISSETTE ISCV Sep E/e' 14.5 LISSETTE ISCV Avg E/e' 13.1 LISSETTE ISCV Anatomical Region Laterality Modality Echocardiography Narrative 01/02/2025 2:34 PM EDT Left Ventricle: The left ventricle is mildly dilated. The left ventricular systolic function is normal. The LVEF as measured by biplane volume is 62%. The left ventricular wall motion is normal. Right Ventricle: The right ventricle is mildly dilated. The right ventricular systolic function is normal. Aortic Valve: The aortic valve appears to be trileaflet. There is no aortic valve vegetation. There is no valvular regurgitation. There is no hemodynamically significant valvular aortic stenosis. Mitral Valve: The mitral valve leaflets are normal in appearance with no evidence of mitral valve prolapse. There is no mitral valve vegetation. There is no mitral regurgitation. Tricuspid Valve: The tricuspid valve is normal in appearance. There is no tricuspid valve vegetation. Compared to the most recently available prior study, and allowing for differences in image quality and technique, there is no significant interval change noted. Left Ventricle The left ventricle is mildly dilated. The left ventricular systolic function is normal. The LVEF as measured by biplane volume is 62%. The diastolic function is normal. The left ventricular wall motion is normal. Right Ventricle The right ventricle is mildly dilated. The right ventricular systolic function is normal. Right ventricular systolic pressure is normal (<35mmHg). Left Atrium The left atrial size is normal. The interatrial septum is intact with no evidence for an atrial septal defect. Right Atrium The right atrium is dilated by visual assessment. IVC/SVC The IVC was not well visualized, and an assumed pressure of 8mmHg was used for calculations. Mitral Valve The mitral valve leaflets are normal in appearance with no evidence of mitral valve prolapse. There is no mitral valve vegetation. There is no mitral regurgitation. There is no mitral stenosis. Tricuspid Valve The tricuspid valve is normal in appearance. There is no tricuspid valve vegetation. There is trace tricuspid regurgitation. There is no tricuspid stenosis. Aortic Valve The aortic valve appears to be trileaflet. There is no aortic valve vegetation. There is no valvular regurgitation. There is no hemodynamically significant valvular aortic stenosis. Pulmonic Valve The pulmonic valve was not well visualized. There is trace pulmonic regurgitation. There is no pulmonic stenosis. Pericardium No pericardial effusion. Great Vessels The aortic root is normal in size. The sinus of Valsalva (aortic root) diameter is 36 mm by leading edge to leading edge method. In the maximally visualized portion, the ascending aorta appears normal in size. In the maximally visualized portion, the aortic arch appears normal in size. The main pulmonary artery is not well visualized. Study Details A complete transthoracic echocardiogram using two-dimensional (2D), m-mode, color and spectral flow Doppler imaging was performed. During the study the apical, parasternal, subcostal and suprasternal view was captured. Height: 183.0 cm. Weight: 91.0 kg. BSA: 2.13 m2. Study Recommendation Compared to the most recently available prior study, and allowing for differences in image quality and technique, there is no significant interval change noted. us Johnson Medina MD CV ECHO PROCEDURES Ida l Result * CT Humerus Right w IV Contrast (01/02/2025 11:45 AM EDT) Anatomical Region Laterality Modality Upper Extremities Right Computed Tomog boogie Impressions 01/02/2025 12:26 PM EDT Soft tissue swelling and subcutaneous fat stranding in the arm, concerning for cellulitis. No evidence of fluid collections. Vascular access the medial arm, with foci of gas formation. There are multiple mildly enlargement axillary lymph nodes, likely reactive. Partially imaged right lung opacities. Chest CT is recommended for further evaluation. CRITICAL RESULT: No. COMMUNICATION: Per this written report. Drafted by Chester Louis MD on 01/02/2025 12:13 PM Final report signed by Chester Louis MD on 01/02/2025 12:26 PM Narrative 01/02/2025 12:26 PM EDT CLINICAL INDICATION: soft tissue infection conc possible deep abscess. Extend from R axila to elbow please TECHNIQUE: Multiple axial CT images were obtained through the right humerus of the injection of 100 mL with Omnipaque. The axial CT data set was used to generate high resolution reformatted images in the coronal and sagittal planes to facilitate diagnostic accuracy and treatment planning. Total DLP (Dose-Length Product): 718.29 mGy.cm. Please note: The reported value represents the total of one or more individual components during the CT acquisition on this date and at this time, and as such, the same value may appear in more than one CT report depending on the interpreting/reporting physicians. COMPARISON: None. FINDINGS: The bony mineralization is within normal limits. The alignment of the osseous structures is anatomic. There is no fracture, AVN or intraosseous destructive lesion. Soft tissue swelling and subcutaneous fat stranding in the arm, pronounced medially. There is no soft tissue fluid collection or foreign body. Vascular access the medial arm, with foci of gas formation. There are multiple mildly enlargement axillary lymph nodes. Partially imaged right lung opacities. Procedure Note Chester Coppola MD - 01/02/2025 CLINICAL INDICATION: soft tissue infection conc possible deep abscess. Extend from R axila toelbow please TECHNIQUE: Multiple axial CT images were obtained through the right humerus of theinjection of 100 mL with Omnipaque. The axial CT data set was used togenerate high resolution reformatted images in the coronal and sagittalplanes to facilitate diagnostic accuracy and treatment planning. Total DLP (Dose-Length Product): 718.29 mGy.cm. Please note: The reportedvalue represents the total of one or more individual components during theCT acquisition on this date and at this time, and as such, the same valuemay appear in more than one CT report depending on theinterpreting/reporting physicians. COMPARISON: None. FINDINGS: The bony mineralization is within normal limits. The alignment of theosseous structures is anatomic. There is no fracture, AVN or intraosseous destructive lesion. Soft tissue swelling and subcutaneous fat stranding in the arm, pronouncedmedially. There is no soft tissue fluid collection or foreign body. Vascular access the medial arm, with foci of gas formation. There are multiple mildly enlargement axillary lymph nodes. Partially imaged right lung opacities. IMPRESSION: Soft tissue swelling and subcutaneous fat stranding in the arm, concerningfor cellulitis. No evidence of fluid collections. Vascular access the medial arm, with foci of gas formation. There are multiple mildly enlargement axillary lymph nodes, likelyreactive. Partially imaged right lung opacities. Chest CT is recommended for furtherevaluation. CRITICAL RESULT: No. COMMUNICATION: Per this written report. Drafted by Chester Louis MD on 01/02/2025 12:13 PM Final report signed by Chester Louis MD on 2:26 PM Aric Lee MD IMG CT PROCEDURES Final Result * (ABNORMAL) Hemoglobin, Blood (12/19/2024 11:10 PM EDT) HGB 8.2(L) 13.7 - 17.5 g/dL LAB HEMATOLOGY METHOD 12/19/2024 11:30 PM EDT [facility] Blood Venous blood specimen / Unknown Venipuncture / Unknown 12/19/2024 11:10 PM EDT 12/19/2024 11:14 PM EDT Ricardo Jain MD LAB BLOOD ORDERABLES Final Res ult [facility] [address] [place] [id number] * (ABNORMAL) Hemoglobin and Hematocrit, Blood (12/18/2024 10:40 PM EDT) HGB 7.0(L) 13.7 - 17.5 g/dL LAB HEMATOLOGY METHOD 12/18/2024 11:23 PM EDT [facility] HCT 19.9(L) 40.0 - 51.0 % LAB HEMATOLOGY METHOD 12/18/2024 11:23 PM EDT [facility] Blood Venous blood specimen / Unknown Venipuncture / Unknown 12/18/2024 10:40 PM EDT 12/18/2024 11:07 PM EDT Miguelina Cummins MD LAB BLOOD ORDERABLES Fin al Result [facility] [address] [place] [address] * Urinalysis Microscopic Examination (12/17/2024 5:17 AM EDT) Urine Urine specimen obtained by clean catch procedure / Unknown Non-blood Collection / Unknown 12/17/2024 5:17 AM EDT 12/17/2024 5:23 AM EDT Alec Dill APRN LAB URINE ORDERABLES Fin al Result [facility] [address] [place] [address] * GI Fibroscan (12/10/2024 11:41 AM EDT) [...] ORDERS Fin al Result Performing Organization Address City/[facility]/ZIP Co de Phone Number [facility] * HIV 1 & 2 Antibody/Antigen Screen (02/10/2024 2:39 PM EST) HIV 1 & 2 Antibody/Antigen Screen Non Reactive Non Reactive 02/10/2024 4:13 PM EST [facility] Comment:Screening for HIV 1 & 2 antibodies, and P24 antigen is NONREACTIVE. No confirmatory testing is required. Blood Venous blood specimen / Unknown Venipuncture / Unknown 02/10/2024 2:39 PM EST 02/10/2024 3:30 PM EST us Maria Teresa Gonzalez MD LAB BLOOD ORDERABLES Final Res ult [facility] [address] [place] [address] from Last 3 Months or Most Recently Relevant to Health Maintenance Additional Health Concerns Infection Onset Date Last Indicated MRSA Comment:Added from external infection. Source: [facility]. 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 Source: [facility]. 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 Do not resolve this infection. 02/09/2025 Insurance [facility] MEDICAID Advance Directives * Full Code (Latest Code Status on File) Date Activated Date Inactivated Comments 02/05/2025 6:23 PM 02/13/2025 5:57 PM Question Answer Comments I have reviewed the capacity from the link above and, if needed, have updated to appropriate status: Yes * Full Code Date Activated Date Inactivated Comments 01/17/2025 8:52 PM 01/30/2025 7:42 PM Question Answer Comments I have reviewed the capacity from the link above and, if needed, have updated to appropriate status: Yes * Full Code Date Activated Date Inactivated Comments 12/17/2024 4:56 AM 01/05/2025 4:25 PM Question Answer Comments I have reviewed the capacity from the link above and, if needed, have updated to appropriate status: Yes * Full Code Date Activated Date Inactivated Comments 10/19/2024 11:56 [...] needed, have updated to appropriate status: Yes Care Teams Unemployment Specialist Relationship Specialty Start Date End Date Favian Sandy DO [address] [facility] [address] [place] [address] PCP - General 07/05/24 Navya Man MD [address] [id number] Consulting Physician Hematology 09/28/24 Annette Gomes, RN None None Registered Nurse 01/18/25
--- OUTSIDE RECORDS SUMMARY | 2025-02-25 20:44 | XMS_ITS | Clinical Summary ---
Author Organization [facility] Address [address] [place] [address] Phone Care Team Providers Care Roll Changer Name Role Phone Unavailable Unavailable Conditions or Problems No information available. Medications No information available. Medications Administered No information available. Allergies, Adverse Reactions, Alerts No information available. Results No information available. Plan of Care No information available. Procedures No information available. Vital Signs No information available. Immunizations No information available. Advance Directives No information available.
--- OUTSIDE RECORDS SUMMARY | 2025-02-25 20:45 | XMS_ITS | Encounter Summary ---
Author Organization [facility] Address [address] [id number] Care Team Providers Care Operations Research Director Name Role Phone DuFavian Wilfrido SIU Primary Care Provider [phone] Navya aMn MD Unavailable Cathleen Pena LPN Unavailable UnavailPhyllis Busch RN Unavailable Unavailab Camilla Montenegro RN Unavailable Unavailable Annette Gomes RN Unavailable Unavailable Reason for Visit * Auth/Cert (Routine) Specialty Diagnoses / Procedures Referred By Fito t Referred To Contact Diagnoses Sickle cell pain crisis (CMS/HCC) Blood transfusion reaction, initial encounter Lazaro Cortez MD [address] [place] [address] Phone: tel: fax: PAV A Inpatient [address] [place] [address] Referral ID Status Reason Start Date Expiration Date Visits Re quested Visits Authorized [id number] 1 1 Encounter Details Date Type Department Care Team (Late st Contact Info) Description 10/19/2024 Lab Requisition [facility] H Lab [address] [place] [address] Sundeep Jaquez MD [address] [place] [address] Encounter for general adult medical [...] any time in the past 12 m [facility], were you homeless or living in a long term (including now)? No 10/23/2024 CAGE ASSESSMENT Answer [...] drink first t geri in the morning (EYE-RADIOGRAPHER) to steady your nerves or to get rid of a hangover? 0 10/20/2024 CAGE Questionnaire Score 0 025 Utilities Answer Date Recorded In the past 12 months has th e [employer], gas, oil, or water company threatened to shut off services in your home? No 10/23/2024 Sex and Gender Information Value Date Recorded Sex Assigned at Male 03/16/2024 2:12 PM EST Legal Sex Male 7:40 PM EDT Gender Identity Not on file Sexual Orientation Not on file documented as of this encounter Functional Status * Question Answer Date of Assessment Author Precautions Environmental surveillance 10/22/2024 8:0 0 PM EDT Yojana Knight RN * Calculated C-SSRS Risk Score (Lifetime/Recent) Answer Date of Assessment Author No Risk Indicated 10/22/2024 8:00 PM EDT Yojana Knight RN * Question Answer Date of Assessment Author 1. Wish to be (Past 1 Month) No 025 8:00 PM EDT Yojana Knight RN 2. Non-Specific Active Suici mini Thoughts (Past 1 Month) No 10/22/2024 8:00 PM EDT Shonna Knight RN 6. Suicidal Behavior (Lifetime) No 8:00 PM EDT Yojana Knight RN documented as of this encounter Mental Status * Question Answer Entry Date Author Precautions Environmental surveillance 10/22/2024 8:0 0 PM EDT Yojana Knight RN * Question Answer Entry Date Author Scale Used Pj 10/20/2024 8:00 AM EDT Carolina Reich RN documented in this encounter Plan of Treatment Upcoming Encounters Date Type Department Care Team (Late st Contact Info) Description 03/15/2025 3:30 PM EST Clinical Support [facility] Hematology/BMT and Cellular Therapy Program [address] [facility] [place] [phone] 03/15/2025 4:00 PM EST Office Visit [facility] CC Hematology/BMT and Cellular Therapy Program [address] [facility], [facility] [place] [phone] Parth Fitzgerald MD [address] [place], [place] [phone] 03/28/2025 1:40 PM EST Office Visit [facility] [place] [address] [facility] [place] [phone] Duglas Greer MD [address] [place] [address] 07/18/2025 1:40 PM EDT Office Visit [facility] [address], [address] [place] [address] Diana Alonzo, PA [address] [place] [address] documented as of this encounter Procedures Procedure Name Priority Date/Time Associated Diagnosis Comments TRANSFUSION REACTION CULTURE AND GRAM STAIN Routine 10/19/2024 6:08 PM EDT Encounter for general adult medical examination without abnormal findings documented in this encounter Results * Transfusion Reaction Culture and Gram Stain (10/19/2024 6:08 PM EDT) Culture No growth at day 7 2024 10:42 AM EDT [facility] Gram Stain Result No polymorphonuclear leukocytes seen 10/28/2024 10:42 AM EDT [facility] Gram Stain Result No organisms seen 10/28/2024 10:42 AM EDT [facility] Transfusion Bag Blood transfusion reaction / Unknown 10/19/2024 6:08 PM EDT 10/19/2024 6:08 PM EDT us Sundeep Jaquez MD LAB MICROBIOLOGY - GENERAL ORDERABLES Final Result [facility] [address] [place] [address] documented in this encounter Visit Diagnoses Diagnosis Encounter for general adult medical examination without abnormal findings documented in this encounter Additional Health Concerns Infection Onset Date Last Indicated Resolved Time MRSA Comment:Added from external infection. Source: [facility]. 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 Source: [facility]. 11/26/2023 02/09/2025 MDRO 08/22/2024 08/22/2024 COVID-19 Rule-Out 10/20/2024 10/20/2024 10/20/2024 4:57 AM EDT Respiratory Rule-Out 10/20/2024 10/20/2024 025 6:03 AM EDT C. difficile Rule-Out 12/17/2024 12/17/20242024 10:20 AM EDT Gastrointestinal Rule-Out 12/17/2024 12/17/2024 10:20 AM EDT Respiratory Rule-Out 12/17/2024 12/17/2024 025 10:21 AM EDT COVID-19 Rule-Out 01/17/2025 01/17/2025 01/17/2025 3:57 PM EST Respiratory Rule-Out 01/17/2025 01/17/2025 025 7:38 PM EST C. difficile Rule-Out Comment:No ongoing diarrhea 01/17/2025 01/17/2025 01/20/2025 3 :04 PM EST Gastrointestinal Rule-Out Comment:No ongoing diarrhea 01/17/2025 01/17/2025 01/20/2025 3 :04 PM EST Rhinovirus 01/17/2025 02/10/2025 C. 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 Do not resolve this infection. 02/09/2025 02/14/2025 Respiratory Rule-Out 02/10/2025 02/10/2025 025 10:20 PM EST Assessment Noted Time PHQ-9 Depression Total Score: 0 09/01/19 12:42 PM EDT A fall risk assessment has been complete d for the patient 09/27/2024 2:07 PM EDT A Body Mass Index follow-up plan has been documented for the patient 11/02/2024 2:26 PM EDT documented as of this encounter Care Teams Operations Research Director Relationship Specialty Start Date End Date Favian Sandy DO [address] [place] [facility] [address] [place] [address] PCP - General 07/05/24 Navya Man MD [address] [address] Consulting Physician Hematology 09/28/24 Cathleen Pena LPN [facility] None TCM Nurse 10/15/24 11/06/24 Phyllis Arango, RN CH-VASCULAR & INTERVENTIONAL RADIOLOGY None Registered Nurse 10/22/24 10/22/24 Camilla Guerrier, RN VALUE-BASED TRANSFORMATION PROGRAM [place], [place] Data Administrator 01/08/25 01/18/25 Annette Gomes RN None None Registered Nurse 01/18/25 documented as of this encounter
--- OUTSIDE RECORDS SUMMARY | 2025-02-25 20:45 | XMS_ITS | Encounter Summary ---
Author Organization [facility] Address [address] [phone] Care Team Providers Care Jailer Name Role Phone DuFavian Wilfrido SIU Primary Care Provider [phone] Navya Man MD Unavailable Annette Gomes RN Unavailable Unavailable Reason for Visit * Reason Onset Date Comments Med Refill 02/04/2025 Encounter Details Date Type Department Care Team (Late st Contact Info) Description 02/04/2025 Telephone [facility] CC Hematology/BMT and Cellular Therapy Program [address] [place] [address] [address] [place] [phone] Parth Fitzgerald MD [address] [phone] Med Refill Social History Tobacco Use Types Packs/Day Years [...] any time in the past 12 m [facility], were you homeless or living in a detention (including now)? No 02/06/2025 [facility] Utilities Answer Date Recorded In the [...] drink first t geri in the morning (EYE-LIBRARIAN SPECIAL LIBRARY) to steady your nerves or to get [...] Date of Assessment Author Precautions Environmental surveillance 02/12/2025 8:0 0 AM EST Channing Liz RN * Calculated C-SSRS Risk Score (Lifetime/Recent) Answer Date of Assessment Author No Risk Indicated 02/12/2025 8:00 AM EST Channing iLz RN * Question Answer Date of Assessment Author 1. Wish to be (Past 1 Month) No 025 8:00 AM Channing Guevara RN 2. Non-Specific Active Suici mini Thoughts (Past 1 Month) No 02/12/2025 8:00 AM EST Silas Liz RN 6. Suicidal Behavior (Lifetime) No 8:00 AM EST Channing Liz RN documented as of this encounter Mental Status * Question Answer Entry Date Author Precautions Environmental surveillance 02/12/2025 8:0 0 AM EST Channing Liz RN * Question Answer Entry Date Author Scale Used Pj 02/05/2025 7:30 PM EST Rm Samayoa RN documented in this encounter Miscellaneous Notes * Telephone Encounter - Jen Martínez RN - 02/11/2025 3:16 PM EST Team has asked nurse to cancel appts for tomorrow. Labs were drawn while inpt and pt is aware of cancelling apheresis chair for tomorrow. * Telephone Encounter - Jen Martínez RN - 02/11/2025 11:21 AM EST Nurse is reaching out to team to see if labs can be added on while inpatient so pt can go directly to apheresis tomorrow. documented in this encounter Plan of Treatment Upcoming Encounters Date Type Department Care Team (Late st Contact Info) Description 03/15/2025 3:30 PM EST Clinical Support [facility] Hematology/BMT and Cellular Therapy Program [address] [place] [phone] 03/15/2025 4:00 PM EST Office Visit [facility] Hematology/BMT and Cellular Therapy Program [address] [place] [phone] Parth Fitzgerald MD [address] [place] [address] 03/28/2025 1:40 PM EST Office Visit [facility] [place] [address] [facility]. [address] [place] [address] Duglas Greer MD [address] [place] [address] 07/18/2025 1:40 PM EDT Office Visit [place] [facility] [address] [place] [address] Diana Alonzo PA [address] [place] [address] documented as of this encounter Visit Diagnoses Not on filedocumented in this encounter Additional Health Concerns Infection Onset Date Last Indicated Resolved Time MRSA Comment:Added from external infection. Source: [facility]. 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 Source: [facility]. 11/26/2023 02/09/2025 MDRO 08/22/2024 08/22/2024 Rhinovirus 01/17/2025 02/10/2025 COVID-19 Rule-Out 02/05/2025 02/05/2025 02/05/2025 4:57 PM EST Respiratory Rule-Out 02/10/2025 02/10/2025 025 10:20 PM EST Assessment Noted Time PHQ-9 Depression Total Score: 0 09/01/19 12:42 PM EDT A fall risk assessment has been complete d for the patient 09/27/2024 2:07 PM EDT A Body Mass Index follow-up plan has been documented for the patient 02/04/2025 9:08 AM EST documented as of this encounter Care Teams Jailer Relationship Specialty Start Date End Date Favian Sandy DO [address] [place] [address] [place] [address] PCP - General 07/05/24 Navya Man MD [address] [address] Consulting Physician Hematology 09/28/24 Annette Gomes RN None None Registered Nurse 01/18/25 documented as of this encounter
--- OUTSIDE RECORDS SUMMARY | 2025-02-25 20:45 | XMS_ITS | Encounter Summary ---
Author Organization [facility] Address [address] [place] [address] Care Team Providers Care Technical Services Representative Name Role Phone DuFavian matamoros Primary Care Provider [phone] Navya Man MD Unavailable Cathleen Pena LPN Unavailable UnavailPhyllis Busch RN Unavailable Unavailab Camilla Montenegro RN Unavailable Unavailable Annette Gomes RN Unavailable Unavailable Encounter Details Date Type Department Care Team (Late st Contact Info) Description 10/11/2024 Orders Only [facility] H Lab [address] [place] [address] Parth Jaquez MD [address] [place] [address] Sickle cell disease without crisis (CMS/HCC) (Primary [...] any time in the past 12 m [facility], were you homeless or living in a skilled nursing (including now)? No 10/05/2024 CAGE ASSESSMENT Answer [...] drink first t geri in the morning (EYE-AVIONICS SUPERVISOR) to steady your nerves or to get [...] Question Answer Date of Assessment Author Precautions None 10/14/2024 6:00 AM EDT Deny Pisano, NASEEM * Calculated C-SSRS Risk Score (Lifetime/Recent) Answer [...] Gillian Sellers documented as of this encounter Mental Status * Question Answer Entry Date Author Precautions None 10/14/2024 6:00 AM EDT Deny Pisano, RN documented in this encounter Plan of Treatment Upcoming Encounters Date Type Department Care Team (Late st Contact Info) Description 03/15/2025 3:30 PM EST Clinical Support [facility] Hematology/BMT and Cellular Therapy Program [address] [place] [address] [place] [phone] 03/15/2025 4:00 PM EST Office Visit [facility] Hematology/BMT and Cellular Therapy Program [address] [place] [address] Parth Fitzgerald MD [address] [place] [address] 03/28/2025 1:40 PM EST Office Visit [facility] [place] [address] [place] [address] Duglas Greer MD [address] [place] [address] 07/18/2025 1:40 PM EDT Office Visit [place] [facility] [address], [address] [place] [address] Diana Alonzo, JAMAL [address] [place] [address] Scheduled Orders Name Type Priority Associated Diagnoses [...] Tue10/11/24 at 1845, Until Discontinued, Routine, For febrile [...] as needed, 1 dose, Starting on [place] 10/11/24 at 1845, Until Discontinued, Routine, For patients with recurrent mild allergic reactions diphenhydrAMINE (Benadryl) tablet 50 mg 50 mg, Oral, Once as needed, 1 dose, Starting on Tue10/11/24 at 1845, Until Discontinued, Routine, For patients with recurrent mild allergic reactions EPINEPHrine (Adrenalin) 1 MG/ML injection 0.1 mg 0.1 mg, Intravenous, Once as needed, 1 dose, Starting on [place] 10/11/24 at 1838, Until Discontinued, STAT, For signs [...] Oral, Every 8 hours PRN, Starting on Tue10/11/24 at 1838, Until Discontinued, Routine, nausea, vomiting sodium citrate anticoagulant 4 % flush 3 mL 3 mL, Intracatheter, As needed, Starting on Tue10/11/24 at 1845, Until Discontinued, Routine, line care documented in this encounter Additional Health Concerns Infection Onset Date Last Indicated Resolved Time MRSA Comment:Added from external infection. Source: [facility]. 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 Source: [facility]. 11/26/2023 02/09/2025 MDRO 08/22/2024 08/22/2024 COVID-19 Rule-Out [...] documented as of this encounter Care Teams Technical Services Representative Relationship Specialty Start Date End Date Favian Sandy DO [address] [place] [address] [place] [address] PCP - General 07/05/24 Navya Man MD [address] [address] Consulting Physician Hematology 09/28/24 Cathleen Pena LPN [facility] None TCM Nurse 10/15/24 11/06/24 Phyllis Arango, RN CH-VASCULAR & INTERVENTIONAL RADIOLOGY None Registered Nurse 10/22/24 10/22/24 Camilla Guerrier, RN VALUE-BASED TRANSFORMATION PROGRAM [place], [place] Emergency Room Registered Nurse 01/08/25 01/18/25 Annette Gomes, RN None None Registered Nurse 01/18/25 documented as of this encounter
--- OUTSIDE RECORDS SUMMARY | 2025-02-25 20:45 | XMS_ITS | Encounter Summary ---
Author Organization [facility] Address [address] [place] [address] Care Team Providers Care Beverage Manager Name Role Phone Favian Sandy Primary Care Provider [phone] Navya Man MD Unavailable Annette Gomes RN Unavailable Unavailable Reason for Visit * Reason Comments TCM Encounter Details Date Type Department Care Team (Late st Contact Info) Description 02/04/2025 Patient Outreach [facility] [address] [place] [address] Annette Gomes, RN None None TCM Social History Tobacco Use Types Packs/Day [...] afraid of your partner or ex-partner? No 01/18/2025 Within the last year, have y ou been humiliated or emotionally abused in other ways by your partner or ex-partner? No Within the last year, have y ou been kicked, hit, slapped, or otherwise physically hurt by your partner or ex-partner? No 01/18/2025 Within the last year, have y ou been raped or forced to have any kind of sexual activity by your partner or ex-partner? No 01/18/2025 AUDIT-C Answer Date Recorded Q1: How often [...] the money to buy more. Never true 01/19/20 25 Within the past 12 months, t he food you bought just didn't last and you didn't have money to get more. Never true 01/18/2025 PRAPARE - Transportation Answer Date Re corded In the past 12 months, has l ack of transportation kept you from medical appointments or from getting medications? No 01/05 In the past 12 months, has l ack of transportation kept you from meetings, work, or from getting things needed for daily living? No 01/18/2025 Housing Stability Vital Sign Answer Sourav e Recorded In the last 12 months, was t here a time when you were not able to pay the mortgage or rent on time? No 01/18/2025 In the past 12 months, how m any times have you moved where you were living? 0 01/18/2025 At any time in the past [address] [facility], were you homeless or living in a intermediate (including now)? No 01/18/2025 [facility] Utilities Answer Date Recorded In the past 12 months has th e electric, gas, oil, or water company threatened to shut off services in your home? No 01/18/2025 CAGE ASSESSMENT Answer Date Recorded Cage unable [...] first t geri in the morning (EYE-CLINICAL REHAB LIAISON) to steady your nerves or to get rid of a hangover? 0 01/17/2025 CAGE Questionnaire Score 0 025 Sex and Gender Information Value Date Recorded Sex Assigned at Male 03/16/2024 2:12 PM EST Legal Sex Male 7:40 PM EDT Gender Identity Not on file Sexual Orientation Not on file documented as of this encounter Miscellaneous Notes * Progress Notes - Annette Gomes RN - 02/04/2025 11:52 AM EST Admit Date: 01/17 Discharge Date: 01/30 Hospital Service: Medicine Discharge Diagnosis: Sepsis, MRSA 02/04/2025 TCM call # 1 Patient Reached: Yes Outcome: Completed call. He reports he is out of his pain medication due to taking some while inpatient due to the inpatient floor he was on not giving him the same dose. RN informed patient I saw where he messaged provider and RN would fu as well due to not wanting an ER visit for pain needs. Action: RN to fu with patient in 1-3 days for HRCM needs. Medication changes: Added Oxycodone 5mg for 14 doses, he reports he is out of both pain medications. [facility] appointment: He reports he will call PCP, He sees Hepatology 02/06 Items to address at [facility]: Pain medication usage documented in this encounter Plan of Treatment Upcoming Encounters Date Type Department Care Team (Late st Contact Info) Description 03/15/2025 3:30 PM EST Clinical Support [facility] Hematology/BMT and Cellular Therapy Program [address] [place] [address] 03/15/2025 4:00 PM EST Office Visit [facility] Hematology/BMT and Cellular Therapy Program [address] [place] [phone] Parth Fitzgearld MD [address] [place] [address] 03/28/2025 1:40 PM EST Office Visit [facility] [place] [address] [facility] [place] [address] Duglas Greer MD [address] [place] [address] 07/18/2025 1:40 PM EDT Office Visit [facility] [address], [address] [place] [address] Diana Alonzo PA [address] [place] [address] documented as of this encounter Visit Diagnoses Not on filedocumented in this encounter Additional Health Concerns Infection Onset Date Last Indicated Resolved Time MRSA Comment:Added from external infection. Source: [facility]. 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 Source: [facility]. 11/26/2023 02/09/2025 MDRO 08/22/2024 08/22/2024 Rhinovirus 01/17/2025 02/10/2025 Assessment Noted Time PHQ-9 Depression Total Score: 0 09/01/19 12:42 PM EDT A fall risk assessment has been complete d for the patient 09/27/2024 2:07 PM EDT A Body Mass Index follow-up plan has been documented for the patient 02/04/2025 9:08 AM EST documented as of this encounter Care Teams Beverage Manager Relationship Specialty Start Date End Date Favian Sandy DO [address] [place] [address] PCP - General 07/05/24 Navya Man MD [address] [address] Consulting Physician Hematology 09/28/24 Annette Gomes, RN None None Registered Nurse 01/18/25 documented as of this encounter
--- OUTSIDE RECORDS SUMMARY | 2025-02-25 20:45 | XMS_ITS | Encounter Summary ---
Author Organization [facility] Address [address] [place] [address] Care Team Providers Care Azure Developer Name Role Phone DuFavian Wilfrido SIU Primary Care Provider [phone] Navya Man MD Unavailable Annette Gomes RN Unavailable Unavailable Encounter Details Date Type Department Care Team (Late st Contact Info) Description 01/31/2025 Telephone [facility] [address] [place] [address] Chichi Quispe MBBS [address] [place] [address] Social History Tobacco Use Types Packs/Day Years Used Date Smoking Tobacco: Former Cigarettes 0.3 3 2 - 2015 Passive Smoke Exposure: Past Smokeless [...] any time in the past 12 m [facility], were you homeless or living in a care home (including now)? No 01/18/2025 [facility] Utilities Answer Date Recorded In the [...] drink first t geri in the morning (EYE-OFFICE RN) to steady your nerves or to get [...] Description 03/15/2025 3:30 PM EST Clinical Support [facility] Hematology/BMT and Cellular Therapy Program [address] [place] [phone] 03/15/2025 4:00 PM EST Office Visit [facility] Hematology/BMT and Cellular Therapy Program [address] [place] [phone] Parth Fitzgerald MD [address] [place], [place] [phone] 03/28/2025 1:40 PM EST Office Visit [facility] [place] [address] [facility]. [address] [place] [phone] Duglas Greer MD [address] [place] [address] 07/18/2025 1:40 PM EDT Office Visit [place] [facility] [address] [place] [address] Diana Alonzo, PA [address] [place] [address] documented as of this encounter Visit Diagnoses Not on filedocumented in this encounter Additional Health Concerns Infection Onset Date Last Indicated Resolved Time MRSA Comment:Added from external infection. Source: [facility]. 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 Source: [facility]. 11/26/2023 02/09/2025 MDRO 08/22/2024 08/22/2024 Rhinovirus 01/17/2025 02/10/2025 Assessment Noted Time PHQ-9 Depression Total Score: 0 09/01/19 12:42 PM EDT A fall risk assessment has been complete d for the patient 09/27/2024 2:07 PM EDT A Body Mass Index follow-up plan has been documented for the patient 01/30/2025 5:06 PM EST documented as of this encounter Care Teams Azure Developer Relationship Specialty Start Date End Date Favian Sandy DO [address] [facility] [address] [place] [address] PCP - General 07/05/24 Navya Man MD [address] [place] [address] Consulting Physician Hematology 09/28/24 Annette Gomes RN None None Registered Nurse 01/18/25 documented as of this encounter
--- OUTSIDE RECORDS SUMMARY | 2025-02-25 20:45 | XMS_ITS ---
Author Organization [facility] Address [address] [place] [address] Care Team Providers Care Driver Trainer Name Role Phone Favian Sandy DO Primary Care Provider [phone] Navya Man MD Unavailable Annette Gomes RN Unavailable Unavailable Transitional Care Management Status:Closed (Closed) Program category:Transitional Care Management - [facility] Start date:01/08/2025 Enrollment date:01/08/2025 Enrollment reason:Identified using hospital discharge data End date:01/18/2025 Close reason:Patient Readmitted Overview This episode type is for outpatient care managers enrolling patients in the [facility] Transitional Care Management program. Continued Care and Services Coordination
--- OUTSIDE RECORDS SUMMARY | 2025-02-25 20:45 | XMS_ITS | Referral Summary ---
Author Organization [facility] ([place], [place], [place], [place], [place]) Address [address] [place] [address] Care Team Providers Care Duct Cleaner Name Role Phone Favian Sandy MD Primary Care Provider + Encounters Date Type Department Care Team Description 11/05/2024 6:34 PM EDT - 12/01/2024 3:50 PM EDT Hospital Encounter [address] Neuro Telemetry Unit [address] [place] [address] Jonnathan Beebe DO Evans, Sophia, Bola Ruiz DO Emeric, Edgar, MD Quisenberry, Thomas, MD Patel, Paru G, ANIMAL TREATMENT INVESTIGATOR Filiberto Resendiz, MARK Sepsis without acute organ dysfunction, due to unspecified organism (HCC) (Primary Dx); Sickle cell anemia (HCC); Sickle cell disease with crisis (HCC) Discharge Disposition: Home or Self Care from Last 3 Months Allergies Active Allergy Reactions Criticality Noted Date Comments Morphine 11/05/2024 Medications apixaban (ELIQUIS) 5 mg tab tablet Take 1 tablet (5 mg total) by mouth 2 (two) times daily. Active folic acid (FOLVITE) 1 MG tablet Take 1 tablet (1 mg total) by mouth daily. Active lidocaine (LIDODERM) 5 % ptmd patch Place 1 patch on the skin daily Remove & Discard patch within 12 hours or as directed by . Active methocarbamoL (ROBAXIN) 750 MG tablet Take 1 tablet (750 mg total) by mouth 3 (three) times daily. Active naloxone 3 mg/actuation spry Administer into affected nostril(s). Active sennosides (SENOKOT) 8.6 mg tablet Take 1 tablet (8.6 mg total) by mouth nightly. Active hydroxyurea (HYDREA) 500 mg capsule Take 1 capsule (500 mg total) by mouth 2 (two) times daily. Active magnesium oxide (MAG-OX) 400 mg tablet Take 1 tablet (400 mg total) by mouth daily. Active acetaminophen (TYLENOL) 500 MG tablet Take 2 tablets (1,000 mg total) by mouth every 8 (eight) hours as needed for pain. Active deferasirox (EXJADE) 500 MG disintegrating tablet Take 3 tablets (1,500 mg total) by mouth every morning before breakfast Take 3 tablets by mouth daily before breakfast. Disperse tablets in water, orange juice, or apple juice (use 3.5 ounces for total doses less than 1 g; 7 ounces for doses = 1 g). Stir, then drink entire contents. Rinse with more fluid; drink thr rinse. Active oxyCODONE (ROXICODONE) 30 MG immediate release tablet Take 1 tablet (30 mg total) by mouth every 6 (six) hours as needed for severe pain (7-10) Look-alike/S ound-alike medication. Active pantoprazole (PROTONIX) 40 MG tablet Take 1 tablet (40 mg total) by mouth Daily (0600). Active diclofenac sodium 1 % gel Apply 4 g topically 4 (four) times daily As needed for lower back. Active NIFEdipine (PROCARDIA-XL) 60 MG (OSM) 24 hr tablet Take 1 tablet (60 mg total) by mouth daily. 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 No 11/06/2024 Interpersonal Safety Answer Date Record ed How often does anyone, zahra lang family and friends, physically hurt you? Never 11/06/2024 How often does anyone, zahra lang family and friends, insult or talk down to you? Never 11/06/2024 How often does anyone, zahra lang family and friends, threaten you with harm? Never 11/06/2024 How often does anyone, zahra lang family and friends, scream or curse at you? Never 11/06/2024 Housing Stability Answer Date Recorded What is your living situation today? I have a [facility] place to live 11/06/[address] you li ve. Do you have problems with any of the following? None of the above 11/06/2024 Food Insecurity Answer Date Recorded Within the past 12 months, y ou worried that your food would run out before you got money to buy more. Never true 11/06/2024 Within the past 12 months, t he food you bought just didn't last and you didn't have money to get more. Never true 11/06/2024 Transportation Needs Answer Date Record ed In the past 12 months, has l ack of reliable transportation kept you from medical appointments, meetings, work or from getting things needed for daily living? No 11/06/2024 Financial Resource Strain Answer Date R ecorded How hard is it for you to pa y for the very basics like food, housing, medical care, and heating? Would you say it is: Not hard at all 11/06/2024 Employment Answer Date Recorded Do you want help finding or keeping work or a job? I do not need or want help 11/06/2024 Family and Community Support Answer Sourav e Recorded If for any reason you need h elp with day-to-day activities such as bathing, preparing meals, shopping, managing finances, etc., do you get the help you need? I don't need any help 11/06/2024 Feeling Lonely or Isolated 0 11/06 Educational Attainment Answer Date Rashid rded Do you speak a language other than [place]ese at [facility]? No 11/06/2024 Do you want help with school or training? For example, starting or completing job training or getting a high school diploma, GED or equivalent. No 11/06/2024 Physical Activity Answer Date Recorded Number of minutes of exercise per week 300 11/06/2024 Self Management Answer Date Recorded Because of a physical, menta l, or emotional condition, do you have serious difficulty concentrating, remembering, or making decisions? (5 years or older) No 11/06/2024 Because of a physical, menta l, or emotional condition, do you have difficulty doing errands alone such as visiting a doctor's office or shopping? (15 years or older) No 11/06/2024 Substance Use Answer Date Recorded How many times in the past y ear have you used prescription drugs for non-medical reasons? Never 11/06/2024 How many times in the past year have you used il legal drugs? Never 11/06/2024 Mental Health Answer Date Recorded Calculation of above two rows 0 Sex and Gender Information Value Date Recorded Sex Assigned at Not on file Legal Sex Male 5:16 PM CDT Gender Identity Not on file Sexual Orientation Not on file Last Filed Vital Signs Vital Sign Reading Time Taken Comments Blood Pressure 121/88 12/01/2024 12:10 PM EDT Pulse 76 12/01/2024 12:10 PM EDT Temperature 36.5 C (97.7 F) 12/01/2024 12:05 PM EDT Respiratory Rate 16 11/30/2024 9:10 PM EDT Oxygen Saturation 100% 12/01/2024 12:10 PM EDT Inhaled Oxygen Concentration - - Weight 79.4 kg (175 lb) 11/06/2024 12:32 AM EDT Height 180.3 cm (5' 11 ) 11/06/2024 12:32 AM EDT Body Mass Index 24.41 11/06/2024 12:32 AM EDT Plan of Treatment Not on file Procedures Procedure Name Priority Date/Time Associated Diagnosis Comments BASIC METABOLIC PANEL Routine 12/01/2024 11:36 AM EDT CBC HEMOGRAM (SJ-BKR) DESHAUN 12/01/2024 11:36 AM EDT BASIC METABOLIC PANEL Routine 11/29/2024 4:00 AM EDT CBC W/ AUTO DIFF Routine 11/29/2024 4:00 AM EDT COMPREHENSIVE METABOLIC PANEL Routine 11/27/2024 8:50 AM EDT CBC W/ AUTO DIFF Routine 11/27/2024 8:50 AM EDT COMPREHENSIVE METABOLIC PANEL Routine 11/26/2024 4:32 AM EDT CBC W/ AUTO DIFF Routine 11/26/2024 4:32 AM EDT from Last 3 Months Results * (ABNORMAL) CBC - Hemogram (SJ-BKR) (12/01/2024 11:36 AM EDT) WBC 7.8 4.2 - 9.1 K/ L 12/01/2024 11:49 AM EDT [facility] RBC 3.00(L) 4.63 - 6.08 M/ L 12/01/2024 11:49 AM EDT [facility] Hemoglobin 8.5(L) 13.7 - 17.5 GM/DL 12/01/2024 11:49 AM EDT [facility] Hematocrit 25.7(L) 40.1 - 51.0 % 12/01/2024 11:49 AM EDT [facility] MCV 86 79 - 92 fL 12/01/2024 11:49 AM EDT [facility] MCH 28.3 25.7 - 32.2 pg 12/01/2024 11:49 AM EDT [facility] MCHC 33.1 32.3 - 36.5 GM/DL 12/01/2024 11:49 AM EDT [facility] RDW 17.9(H) 11.6 - 14.4 % 12/01/2024 11:49 AM EDT [facility] Platelets 299 140 - 375 K/CU MM 12/01/2024 11:49 AM EDT [facility] MPV 9.7 9.4 - 12.4 fL 12/01/2024 11:49 AM EDT [facility] Blood CENTRAL VENOUS CATHETER / Unknown Venipuncture / Unknown 12/01/2024 11:36 AM EDT 12/01/2024 11:46 AM EDT us Cassie Corona PA-C LAB BLOOD ORDERABLES Final Res ult [facility] [address] [phone] * (ABNORMAL) Basic Metabolic Panel (12/01/2024 11:36 AM EDT) Only the most recent of2 resultswithin the time period is included. Sodium 134(L) 136 - 145 meq/L 12/01/2024 12:10 PM EDT [facility] Potassium 4.6 3.4 - 5.1 meq/L 12/01/2024 12:10 PM EDT [facility] CO2 21(L) 22 - 29 meq/L 12/01/2024 12:10 PM EDT [facility] Chloride 106 98 - 112 meq/L 12/01/2024 12:10 PM EDT [facility] Glucose 87 74 - 100 mg/dL 12/01/2024 12:10 PM EDT [facility] BUN 29.1(H) 8.9 - 20.6 mg/dL 12/01/2024 12:10 PM EDT [facility] Creatinine 1.11 0.72 - 1.25 mg/dL 12/01/2024 12:10 PM EDT [facility] BUN/Creatinine 26(H) 8 - 20 12/01/2024 12:10 PM EDT [facility] Calcium 9.0 8.4 - 10.2 mg/dL 12/01/2024 12:10 PM EDT [facility] Anion Gap 12 4 - 12 12/01/2024 12:10 PM EDT [facility] eGFR (mL/min/1.73m2) 92 >=60 mL/min/1.7 3m2 12/01/2024 12:10 PM EDT [facility] Comment:ESTIMATED GFR IS NOT ACCURATE CREATININE CLEARANCE IN PREDICTING GLOMERULAR FILTRATION RATE. ESTIMATED GFR IS NOT APPLICABLE FOR DIALYSIS PATIENTS. Osmolality Calc 273.5 mOsm/kg 12:10 PM EDT [facility] Blood CENTRAL VENOUS CATHETER / Unknown Venipuncture / Unknown 12/01/2024 11:36 AM EDT 12/01/2024 11:46 AM EDT us Cassie Corona PA-C LAB BLOOD ORDERABLES Final Res ult [facility] [address] [phone] * (ABNORMAL) CBC with automated diff (11/29/2024 4:00 AM EDT) Only the most recent of3 resultswithin the time period is included. WBC 8.2 4.2 - 9.1 K/ L 11/29/2024 4:07 AM EDT [facility] RBC 2.77(L) 4.63 - 6.08 M/ L 11/29/2024 4:07 AM EDT [facility] Hemoglobin 8.1(L) 13.7 - 17.5 GM/DL 11/29/2024 4:07 AM EDT [facility] Hematocrit 23.8(L) 40.1 - 51.0 % 11/29/2024 4:07 AM EDT [facility] MCV 86 79 - 92 fL 11/29/2024 4:07 AM EDT [facility] MCH 29.2 25.7 - 32.2 pg 11/29/2024 4:07 AM EDT [facility] MCHC 34.0 32.3 - 36.5 GM/DL 11/29/2024 4:07 AM EDT [facility] RDW 17.9(H) 11.6 - 14.4 % 11/29/2024 4:07 AM EDT [facility] Platelets 311 140 - 375 K/CU MM 11/29/2024 4:07 AM EDT [facility] MPV 9.8 9.4 - 12.4 fL 11/29/2024 4:07 AM EDT [facility] % Neutros 41 34 - 68 % 11/29/2024 4:07 AM EDT [facility] % Lymphs 47 22 - 53 % 11/29/2024 4:07 AM EDT [facility] % Monos 8 5 - 12 % 11/29/2024 4:07 AM EDT [facility] % Eos 3 1 - 7 % 11/29/2024 4:07 AM EDT [facility] % Baso 1 0 - 1 % 11/29/2024 4:07 AM EDT [facility] NRBC Absolute 0.02(H) 0 - 0.012 K/ul 11/29/2024 4:07 AM EDT [facility] # Neutros 3.36 1.78 - 5.38 K/ L 11/29/2024 4:07 AM EDT [facility] # Lymphs 3.86(H) 1.32 - 3.57 K/ L 11/29/2024 4:07 AM EDT [facility] # Monos 0.67 0.30 - 0.82 K/ L 11/29/2024 4:07 AM EDT [facility] # Eos 0.21 0.04 - 0.54 K/ L 11/29/2024 4:07 AM EDT [facility] # Baso 0.09(H) 0.01 - 0.08 K/ L 11/29/2024 4:07 AM EDT [facility] % Imm Grans 0.40 0.01 - 0.43 % 11/29/2024 4:07 AM EDT [facility] # IG 0.03 0.00 - 0.03 K/uL 11/29/2024 4:07 AM EDT [facility] Blood Venipuncture / Unknown 11/29/2024 4:00 AM EDT 11/29/2024 4:05 AM EDT Narrative [facility] - 11/29/2024 4:07 AM EDT When CBC w/ Auto Diff is ordered the lab will add a Manual Differential as a quality check at no additional charge if: Lymphocytes greater than seventy five percent with normal or increased WBC Monocytes greater than Fifteen percent Basophil greater than four percent Bands >10% or several immature myeloids are seen on scan Blast? Flag noted Atypical Lymph flag noted us Filiberto Resendiz PA-C LAB BLOOD ORDERABLES Final Re sult [facility] [address] [phone] * (ABNORMAL) Comprehensive metabolic panel (11/27/2024 8:50 AM EDT) Only the most recent of2 resultswithin the time period is included. Sodium 139 136 - 145 meq/L 11/27/2024 11:39 AM EDT [facility] Comment:This is a corrected result. Previous result was 138 meq/L on 11/27/2024 at 1010 EDT Potassium 4.5 3.4 - 5.1 meq/L 11/27/2024 11:39 AM EDT [facility] Chloride 110 98 - 112 meq/L 11/27/2024 11:39 AM EDT [facility] CO2 20(L) 22 - 29 meq/L 11/27/2024 11:39 AM EDT [facility] Comment:This is a corrected result. Previous result was 21 meq/L on 11/27/2024 at 1010 EDT Calcium 8.9 8.4 - 10.2 mg/dL 11/27/2024 11:39 AM EDT [facility] Comment:This is a corrected result. Previous result was 8.8 mg/dL on 11/27/2024 at 1010 EDT Glucose 88 74 - 100 mg/dL 11/27/2024 11:39 AM EDT [facility] Comment:This is a corrected result. Previous result was 87 mg/dL on 11/27/2024 at 1010 EDT BUN 23.4(H) 8.9 - 20.6 mg/dL 11/27/2024 11:39 AM T [facility] Creatinine 1.27(H) 0.72 - 1.25 mg/dL 11/27/2024 11:39 AM T [facility] Comment:This is a corrected result. Previous result was 1.24 mg/dL on 11/27/2024 at 1010 EDT BUN/Creatinine 18 8 - 20 11/27/2024 11:39 AM [facility] eGFR (mL/min/1.73m2) 78 >=60 mL/min/1.7 3m2 11/27/2024 11:39 AM [facility] Comment: ESTIMATED GFR IS NOT ACCURATE CREATININE CLEARANCE IN PREDICTING GLOMERULAR FILTRATION RATE. ESTIMATED GFR IS NOT APPLICABLE FOR DIALYSIS PATIENTS. This is a corrected result. Previous result was 80 mL/min/1.73m2 on 11/27/2024 at 1010 EDT Albumin 3.3(L) 3.5 - 5.0 g/dL 11/27/2024 11:39 AM [facility] Alkaline Phosphatase 75 40 - 150 U/L 11/27/2024 11:39 AM [facility] ALT 45 <=45 U/L 11/27/2024 11:39 AM T [facility] Comment:This is a corrected result. Previous result was 44 U/L on 11/27/2024 at 1010 EDT AST 88(H) 11 - 34 U/L 11/27/2024 11:39 AM T [facility] Comment:This is a corrected result. Previous result was 86 U/L on 11/27/2024 at 1010 EDT Total Bilirubin 1.4(H) 0.2 - 1.2 mg/dL 11/27/2024 11:39 AM T [facility] Protein, Total 9.3(H) 6.4 - 8.3 g/dL 11/27/2024 11:39 AM [facility] Comment:This is a corrected result. Previous result was 9.2 g/dL on 11/27/2024 at 1010 EDT Globulin 6.0(H) 2.5 - 4.1 g/dL 11/27/2024 11:39 AM EDT [facility] Comment:This is a corrected result. Previous result was 5.9 g/dL on 11/27/2024 at 1010 EDT Anion Gap 14(H) 4 - 12 11/27/2024 11:39 AM EDT [facility] Comment:This is a corrected result. Previous result was 12 on 11/27/2024 at 1010 EDT A/G Ratio 0.6(L) 0.7 - 1.9 11/27/2024 11:39 AM EDT [facility] Osmolality Calc 280.8 mOsm/kg 11:39 AM EDT [facility] Blood Venipuncture / Unknown 11/27/2024 8:50 AM EDT 11/27/2024 8:57 AM EDT us Pati Greer ANIMAL TREATMENT INVESTIGATOR LAB BLOOD ORDERABLES Final Resul t [facility] [address] [phone] from Last 3 Months Additional Health Concerns Infection Onset Date Last Indicated MDR Klebsiella pneumoniae (C ) Comment:ESBL MDR 11/24/2024 11/24/2024 Insurance [facility] Advance Directives For more information, please contact: [phone] * Full Code (Latest Code Status on File) Date Activated Date Inactivated Comments 11/05/2024 9:40 PM 12/01/2024 4:51 PM Care Teams Duct Cleaner Relationship Specialty Start Date End Date Favian Sandy MD [address] [place] [address] PCP - General Internal Medicine 11/05/24
--- OUTSIDE RECORDS SUMMARY | 2025-02-25 20:45 | XMS_ITS | Encounter Summary ---
Author Organization Healthcare Address [address] [place] [address] Care Team Providers Care Relay Repairer Name Role Phone DuFavian Wilfrido SIU Primary Care Provider [phone] Navya Man MD Unavailable Annette Gomes RN Unavailable Unavailable Encounter Details Date Type Department Care Team (Late st Contact Info) Description 02/04/2025 Clinical Support [facility] [address] [place] [address] Jaydon Stuart, PharmD [address] [address] Social History Tobacco Use Types Packs/Day [...] in the past 12 m [facility], were you homeless or living in a half-way (including now)? No 01/18/2025 [facility] Utilities Answer Date Recorded In [...] drink first t geri in the morning (EYE-RESOURCE DEVELOPMENT MANAGER) to steady your nerves or to get [...] Upcoming Encounters Date Type Department Care Team ([facility] st Contact Info) Description 03/15/2025 3:30 PM EST Clinical Support [facility] Hematology/BMT and Cellular Therapy Program [address] [place] [phone] 03/15/2025 4:00 PM EST Office Visit [facility] Hematology/BMT and Cellular Therapy Program [address] [place] [phone] Parth Fitzgeradl MD [address] [place] [phone] 03/28/2025 1:40 PM EST Office Visit [facility] [address] [place] [address] Duglas Greer MD [address] [place] [address] [phone] 07/18/2025 1:40 PM EDT Office Visit [facility] [address] [place] [phone] Diana Alonzo, JAMAL [address] [place] [address] documented as of this encounter Visit Diagnoses Not on filedocumented in this encounter Additional Health Concerns Infection Onset Date Last Indicated Resolved Time MRSA Comment:Added from external infection. Source: . 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 Source: . 11/26/2023 02/09/2025 MDRO 08/22/2024 08/22/2024 Rhinovirus 01/17/2025 02/10/2025 Assessment Noted Time PHQ-9 Depression Total Score: 0 09/01/19 12:42 PM EDT A fall risk assessment has been complete d for the patient 09/27/2024 2:07 PM EDT A Body Mass Index follow-up plan has been documented for the patient 02/04/2025 9:08 AM EST documented as of this encounter Care Teams Relay Repairer Relationship Specialty Start Date End Date Favian Sandy DO [facility] [address] [place] [address] PCP - General 07/05/24 Navya Man MD [address] [place] [address] Consulting Physician Hematology 09/28/24 Annette Gomes, RN None None Registered Nurse 01/18/25 documented as of this encounter
--- OUTSIDE RECORDS SUMMARY | 2025-02-25 20:45 | XMS_ITS | Encounter Summary ---
Author Organization [facility] Address [address] [place] [address] Care Team Providers Care Positive Printer Operator Name Role Phone Favian Sandy DO Primary Care Provider [phone] Navya Man MD Unavailable Encounter Details Date Type Department Care Team (Late st Contact Info) Description 12/17/[address] [facility] [address] [place] [address] Diana Alonzo, JAMAL [address] [facility] [address] [place] [address] Social History Tobacco Use Types [...] afraid of your partner or ex-partner? No 12/19/2024 Within the last year, have y ou been humiliated or emotionally abused in other ways by your partner or ex-partner? No Within the last year, have y ou been kicked, hit, slapped, or otherwise physically hurt by your partner or ex-partner? No 12/19/2024 Within the last year, have y ou been raped or forced to have any kind of sexual activity by your partner or ex-partner? No 12/19/2024 AUDIT-C Answer Date Recorded Q1: How often [...] the money to buy more. Never true 12/20/19 Within the past 12 months, t he food you bought just didn't last and you didn't have money to get more. Never true 12/19/2024 PRAPARE - Transportation Answer Date Re corded In the past 12 months, has l ack of transportation kept you from medical appointments or from getting medications? No 12/05 In the past 12 months, has l ack of transportation kept you from meetings, work, or from getting things needed for daily living? No 12/19/2024 Housing Stability Vital Sign Answer Sourav e Recorded In the last 12 months, was t here a time when you were not able to pay the mortgage or rent on time? No 12/19/2024 Number of Times Moved in the Last Year Not on fi le 12/19/2024 At any time in the past 12 m [facility], were you homeless or living in a nursing home (including now)? No 12/19/2024 [facility] Utilities Answer Date Recorded In the past 12 months has th e electric, gas, oil, or water company threatened to shut off services in your home? No 12/19/2024 CAGE ASSESSMENT Answer Date Recorded Cage unable [...] drink first t geri in the morning (EYE-DEPARTMENT MANAGER) to steady your nerves or to get rid of a hangover? 0 10/20/2024 CAGE Questionnaire Score 0 025 Sex and Gender Information Value Date Recorded Sex Assigned at Male 03/16/2024 2:12 PM EST Legal Sex Male 7:40 PM EDT Gender Identity Not on file Sexual Orientation Not on file documented as of this encounter Functional Status * Question Answer Date of Assessment Author Precautions Fall risk 12/26/2024 8:00 PM EDT Ines Acosta RN * AUDIT-C Score Answer Date of Assessment Author 0 12/17/2024 1:41 AM EDT Brooke Max RN * Question Answer Date of Assessment Author Q1: How often do you have a drink containing alcohol? Never 12/17/2024 1:41 AM EDT Hansel Max RN Q2: How many drinks containing alcohol do you have on a typical day when you are drinking? Patient does not drink 12/17/2024 1:41 AM EDT Hansel Max RN Q3: How often do you have six or more drinks on one occasion? Never 12/17/2024 1:41 AM EDT Hansel Max RN * Question Answer Date of Assessment Author Scale Used Pj 12/17/2024 7:10 AM EDT Althea Ambriz RN * Question Answer Date of Assessment Author Precautions Fall risk 12/26/2024 8:00 PM EDT Ines Acosta RN * Calculated C-SSRS Risk Score (Lifetime/Recent) Answer Date of Assessment Author No Risk Indicated 12/26/2024 8:00 PM EDT Ines Luong RN * Question Answer Date of Assessment Author 1. Wish to be (Past 1 Month) No 025 8:00 PM EDT Ines Luong RN 2. Non-Specific Active Suici mini Thoughts (Past 1 Month) No 12/26/2024 8:00 PM EDT Glenny Luong RN 6. 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 Pt with HCV gt 1a, normal liver on imaging, and fibroscan 4.5 kPa. 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 He has had treatment in [facility] in the past but the details are unclear. Based on what he is tellingme, he took epclua. He couldn't remember detail re: treatment provider but sounds like it was 1 pill for 12 weeks. I think he would need sof/noble/vox unless you feel other otherwise. Can we seek treatment for this patient? Let me know your thoughts and we can adjust tx plan as needed documented in this encounter Plan of Treatment Upcoming Encounters Date Type Department Care Team (Late st Contact Info) Description 03/15/2025 3:30 PM EST Clinical Support [facility] Therapy [facility] [address] [place] [address] 03/15/2025 4:00 PM EST Office Visit [facility] [address] [place] [address] Parth Fitzgerald MD [address] [place] [address] 03/28/2025 1:40 PM EST Office Visit [facility] [place] [address] [place] [address] Duglas Greer MD [address] [place] [address] 07/18/2025 1:40 PM EDT [facility] Visit [facility] [address] [place] [address] Diana Alonzo PA [address] [place] [address] documented as of this encounter Visit Diagnoses Not on filedocumented in this encounter Additional Health Concerns Infection Onset Date Last Indicated Resolved Time MRSA Comment:Added from external infection. Source: [facility]. 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 Source: [facility]. 11/26/2023 02/09/2025 MDRO 08/22/2024 08/22/2024 C. difficile Rule-Out 12/17/2024 12/17/20242024 10:20 AM EDT Gastrointestinal Rule-Out 12/17/2024 12/17/2024 10:20 AM EDT Respiratory Rule-Out 12/17/2024 12/17/2024 025 10:21 AM EDT Assessment Noted Time PHQ-9 Depression Total Score: 0 09/01/19 25 12:42 PM EDT A fall risk assessment has been complete d for the patient 09/27/2024 2:07 PM EDT A Body Mass Index follow-up plan has been documented for the patient 01/05/2025 12:57 PM EDT documented as of this encounter Care Teams Positive Printer Operator Relationship Specialty Start Date End Date Favian Sandy DO [address] [place] [address] PCP - General 07/05/24 Navya Man MD [address] [address] Consulting Physician Hematology 09/28/24 documented as of this encounter
--- OUTSIDE RECORDS SUMMARY | 2025-02-25 20:45 | XMS_ITS ---
Author Organization [facility] Address [address] [place] [address] Care Team Providers Care Pouring Crane Operator Name Role Phone Favian Sandy DO Primary Care Provider [phone] Navya Man MD Unavailable Annette Gomes RN Unavailable Unavailable High Risk Care Management Status:Active (Active) Program category:Care Coordination Start date:01/18/2025 Enrollment date:02/04/2025 Enrollment reason:Identified using referral data Case Team Name Relationship Phone Annette Gomes RN(Responsible Staff) Registered Nurse Continued Care and Services Coordination
--- OUTSIDE RECORDS SUMMARY | 2025-02-25 20:45 | XMS_ITS | Encounter Summary ---
Author Organization [facility] Address [address] [place] [address] Care Team Providers Care Sewing Pattern Layout Technician Name Role Phone DuFavian Wilfrido SIU Primary Care Provider [phone] Navya Man MD Unavailable Annette Gomes RN Unavailable Unavailable Encounter Details Date Type Department Care Team (Late st Contact Info) Description 01/31/2025 Telephone [facility] [address] [place] [address] Chichi Quispe MBBS [address] [place] [address] Social History Tobacco Use Types [...] No 01/18/2025 Housing Stability Vital Sign Answer Osurav e Recorded In the last 12 months, [...] in a nursing home (including now)? No 01/18/2025 [facility] Utilities Answer Date Recorded In the [...] drink first t geri in the morning (EYE-JAPANESE INTERPRETER) to steady your nerves or to get [...] Description 03/15/2025 3:30 PM EST Clinical Support [facility] Hematology/BMT and Cellular Therapy Program [address] [place] [phone] 03/15/2025 4:00 PM EST Office Visit [facility] Hematology/BMT and Cellular Therapy Program [address] [place] [phone] Parth Fitzgerald MD [address] [place], [place] [phone] 03/28/2025 1:40 PM EST Office Visit [facility] [place] [address] [place] [phone] Duglas Greer MD [address] [place] [address] 07/18/2025 1:40 PM EDT Office Visit [facility] [address] [place] [address] Diana Alonzo, PA [address] [place] [address] documented as of this encounter Visit Diagnoses Not on filedocumented in this encounter Additional Health Concerns Infection Onset Date Last Indicated Resolved Time MRSA Comment:Added from external infection. Source: [facility]. 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 Source: [facility]. 11/26/2023 02/09/2025 MDRO 08/22/2024 08/22/2024 Rhinovirus 01/17/2025 02/10/2025 Assessment Noted Time PHQ-9 Depression Total Score: 0 09/01/19 12:42 PM EDT A fall risk assessment has been complete d for the patient 09/27/2024 2:07 PM EDT A Body Mass Index follow-up plan has been documented for the patient 01/30/2025 5:06 PM EST documented as of this encounter Care Teams Sewing Pattern Layout Technician Relationship Specialty Start Date End Date Favian Sandy DO [address] [facility] [address] [place] [address] PCP - General 07/05/24 Navya Man MD [address] [place] [address] Consulting Physician Hematology 09/28/24 Annette Gomes RN None None Registered Nurse 01/18/25 documented as of this encounter
--- OUTSIDE RECORDS SUMMARY | 2025-02-25 20:45 | XMS_ITS | Encounter Summary ---
Author Organization [facility] Address [address] [place] [address] Care Team Providers Care Windsurfing Instructor Name Role Phone DuFavian Wilfrido SIU Primary Care Provider [phone] Navya Man MD Unavailable Annette Gomes RN Unavailable Unavailable Encounter Details Date Type Department Care Team (Late st Contact Info) Description 01/31/2025 Telephone [facility] [address] [place] [address] Chichi Quispe MBBS [address] [place] [address] Social History Tobacco Use Types [...] any time in the past 12 m [facility], were you homeless or living in a penitentiary (including now)? No 01/18/2025 [facility] Utilities Answer Date Recorded In [...] drink first t geri in the morning (EYE-COPPER MINER BLASTING) to steady your nerves or to get [...] Description 03/15/2025 3:30 PM EST Clinical Support [facility] Hematology/BMT and Cellular Therapy Program [address] [place] [phone] 03/15/2025 4:00 PM EST Office Visit [facility] Hematology/BMT and Cellular Therapy Program [address] [place] [phone] Parth Fitzgerald MD [address] [place], [place] [phone] 03/28/2025 1:40 PM EST Office Visit [facility] [place] [address] [facility] [place] [phone] Duglas Greer MD [address] [place] [address] 07/18/2025 1:40 PM EDT Office Visit [facility] [address] [place] [address] Diana Alonzo, PA [address] [place] [address] documented as of this encounter Visit Diagnoses [...] documented as of this encounter Care Teams Windsurfing Instructor Relationship Specialty Start Date End Date Favian Sandy DO [address] [facility] [address] [place] [address] PCP - General 07/05/24 Navya Man MD [address] [place] [address] Consulting Physician Hematology 09/28/24 Annette Gomes RN None None Registered Nurse 01/18/25 documented as of this encounter
--- OUTSIDE RECORDS SUMMARY | 2025-02-25 20:45 | XMS_ITS | Clinical Summary ---
Author Organization [facility] ([place], [place], [place], [place], [place]) Address [address] [place] [address] Care Team Providers Care Clin Asst Name Role Phone Favian Sandy MD Primary Care Provider + Allergies Active Allergy Reactions Criticality Noted Date [...] 12 hours or as directed by MD. Active methocarbamoL (ROBAXIN) 750 MG tablet Take [...] mg total) by mouth daily. 30 tablet 026 Active Active Problems Problem Noted Date [...] cell t ransfusions 07/16/2014 Overview (11/06/2024): Hemochromatosis Encounters Date Type Department Care Team Description 11/05/2024 6:34 PM EDT - 12/01/2024 3:50 PM EDT Hospital Encounter [address] Neuro Telemetry Unit 1 [place] [phone] Jonnathan Beebe DO Evans, Sophia, PA-C Brammell, Korey, DO Emeric, Edgar, MD Quisenberry, Thomas, MD Patel, Paru G, DEPUTY SHERIFF GENERALIST/BAILIFF Astrid, Filiberto A, PA-C Sepsis without acute organ dysfunction, due to unspecified organism (HCC) (Primary Dx); Sickle cell anemia (HCC); Sickle cell disease with crisis (HCC) Discharge Disposition: Home or Self Care from Last 3 Months Social History Tobacco Use Types Packs/Day Years [...] your living situation today? I have a [facility] place to live 11/06/2024 Think about the [...] Do you speak a language other than Uzbek at [facility]? No 11/06/2024 Do you want [...] 11/06/2024 12:32 AM EDT Plan of Treatment Health Maintenance Due Date Last Done Comments Depression Screening (12+) 2006 HIV Screening 2009 Pneumococcal Vaccine: 0-49 Y ears (1 of 2 - PCV) 2013 Lipid Panel 2014 DTAP/TDAP/TD VACCINES (6 - T d or Tdap) 08/24/2016 08/24/2006, 12/08/1998, 02/06/1996, Additional history exists COVID-19 VACCINE (3 - 2024-2 6 season) 2024 01/23/2021, 06/11/2020 Influenza Vaccine (#1) 2024 Tobacco Cessation Counseling and Screening (12+) 11/05/2025 11/05/2024 Procedures Procedure Name Priority Date/Time Associated Diagnosis [...] 9.1 K/ L 12/01/2024 11:49 AM EDT [facility] RBC 3.00(L) 4.63 - 6.08 M/ L 12/01/2024 11:49 AM EDT [facility] Hemoglobin 8.5(L) 13.7 - 17.5 GM/DL 12/01/2024 11:49 AM EDT [facility] Hematocrit 25.7(L) 40.1 - 51.0 % 12/01/2024 11:49 AM EDT [facility] MCV 86 79 - 92 fL 12/01/2024 11:49 AM EDT [facility] MCH 28.3 25.7 - 32.2 pg 12/01/2024 11:49 AM EDT [facility] MCHC 33.1 32.3 - 36.5 GM/DL 12/01/2024 11:49 AM EDT [facility] RDW 17.9(H) 11.6 - 14.4 % 12/01/2024 11:49 AM EDT [facility] Platelets 299 140 - 375 K/CU MM 12/01/2024 11:49 AM EDT [facility] MPV 9.7 9.4 - 12.4 fL 12/01/2024 11:49 AM EDT [facility] Blood CENTRAL VENOUS CATHETER / Unknown Venipuncture / Unknown 12/01/2024 11:36 AM EDT 12/01/2024 11:46 AM EDT us Cassie Corona PA-C LAB BLOOD ORDERABLES Final Res ult [facility] [address] [phone] * (ABNORMAL) Basic Metabolic Panel (12/01/2024 11:36 AM EDT) Only the most recent of2 resultswithin the time period is included. Sodium 134(L) 136 - 145 meq/L 12/01/2024 12:10 PM EDT [facility] Potassium 4.6 3.4 - 5.1 meq/L 12/01/2024 12:10 PM EDT [facility] CO2 21(L) 22 - 29 meq/L 12/01/2024 12:10 PM EDT [facility] Chloride 106 98 - 112 meq/L 12/01/2024 12:10 PM EDT [facility] Glucose 87 74 - 100 mg/dL 12/01/2024 12:10 PM EDT [facility] BUN 29.1(H) 8.9 - 20.6 mg/dL 12/01/2024 12:10 PM EDT [facility] Creatinine 1.11 0.72 - 1.25 mg/dL 12/01/2024 12:10 PM EDT [facility] BUN/Creatinine 26(H) 8 - 20 12/01/2024 12:10 PM EDT [facility] Calcium 9.0 8.4 - 10.2 mg/dL 12/01/2024 12:10 PM EDT [facility] Anion Gap 12 4 - 12 12/01/2024 12:10 PM EDT [facility] eGFR (mL/min/1.73m2) 92 >=60 mL/min/1.7 3m2 12/01/2024 12:10 PM EDT [facility] Comment:ESTIMATED GFR IS NOT ACCURATE CREATININE CLEARANCE IN PREDICTING GLOMERULAR FILTRATION RATE. ESTIMATED GFR IS NOT APPLICABLE FOR DIALYSIS PATIENTS. Osmolality Calc 273.5 mOsm/kg 12:10 PM EDT [facility] Blood CENTRAL VENOUS CATHETER / Unknown Venipuncture / Unknown 12/01/2024 11:36 AM EDT 12/01/2024 11:46 AM EDT us Cassie Corona PA-C LAB BLOOD ORDERABLES Final Res ult [facility] [address] [place] [address], [facility] [phone] * (ABNORMAL) CBC with automated diff (11/29/2024 4:00 AM EDT) Only the most recent of3 resultswithin the time period is included. WBC 8.2 4.2 - 9.1 K/ L 11/29/2024 4:07 AM EDT [facility] RBC 2.77(L) 4.63 - 6.08 M/ L 11/29/2024 4:07 AM EDT [facility] Hemoglobin 8.1(L) 13.7 - 17.5 GM/DL 11/29/2024 4:07 AM EDT [facility] Hematocrit 23.8(L) 40.1 - 51.0 % 11/29/2024 4:07 AM EDT [facility] MCV 86 79 - 92 fL 11/29/2024 4:07 AM EDT [facility] MCH 29.2 25.7 - 32.2 pg 11/29/2024 4:07 AM EDT [facility] MCHC 34.0 32.3 - 36.5 GM/DL 11/29/2024 4:07 AM EDT [facility] RDW 17.9(H) 11.6 - 14.4 % 11/29/2024 4:07 AM EDT [facility] Platelets 311 140 - 375 K/CU MM 11/29/2024 4:07 AM EDT [facility] MPV 9.8 9.4 - 12.4 fL 11/29/2024 4:07 AM EDT [facility] % Neutros 41 34 - 68 % 11/29/2024 4:07 AM EDT [facility] % Lymphs 47 22 - 53 % 11/29/2024 4:07 AM EDT [facility] % Monos 8 5 - 12 % 11/29/2024 4:07 AM EDT [facility] % Eos 3 1 - 7 % 11/29/2024 4:07 AM EDT [facility] % Baso 1 0 - 1 % 11/29/2024 4:07 AM EDT [facility] NRBC Absolute 0.02(H) 0 - 0.012 K/ul 11/29/2024 4:07 AM EDT [facility] # Neutros 3.36 1.78 - 5.38 K/ L 11/29/2024 4:07 AM EDT [facility] # Lymphs 3.86(H) 1.32 - 3.57 K/ L 11/29/2024 4:07 AM EDT [facility] # Monos 0.67 0.30 - 0.82 K/ L 11/29/2024 4:07 AM EDT [facility] # Eos 0.21 0.04 - 0.54 K/ L 11/29/2024 4:07 AM EDT [facility] # Baso 0.09(H) 0.01 - 0.08 K/ L 11/29/2024 4:07 AM EDT [facility] % Imm Grans 0.40 0.01 - 0.43 % 11/29/2024 4:07 AM EDT [facility] # IG 0.03 0.00 - 0.03 K/uL 11/29/2024 4:07 AM EDT [facility] Blood Venipuncture / Unknown 11/29/2024 4:00 AM EDT 11/29/2024 4:05 AM EDT Narrative [facility] - 11/29/2024 4:07 AM EDT When [...] PA-C LAB BLOOD ORDERABLES Final Re sult [facility] [address] [phone] * (ABNORMAL) Comprehensive metabolic panel (11/27/2024 8:50 AM EDT) Only the most recent of2 resultswithin the time period is included. Sodium 139 136 - 145 meq/L 11/27/2024 11:39 AM EDT [facility] Comment:This is a corrected result. Previous result was 138 meq/L on 11/27/2024 at 1010 EDT Potassium 4.5 3.4 - 5.1 meq/L 11/27/2024 11:39 AM EDT [facility] Chloride 110 98 - 112 meq/L 11/27/2024 11:39 AM EDT [facility] CO2 20(L) 22 - 29 meq/L 11/27/2024 11:39 AM T [facility] Comment:This is a corrected result. Previous result was 21 meq/L on 11/27/2024 at 1010 EDT Calcium 8.9 8.4 - 10.2 mg/dL 11/27/2024 11:39 AM T [facility] Comment:This is a corrected result. Previous result was 8.8 mg/dL on 11/27/2024 at 1010 EDT Glucose 88 74 - 100 mg/dL 11/27/2024 11:39 AM T [facility] Comment:This is a corrected result. Previous result was 87 mg/dL on 11/27/2024 at 1010 EDT BUN 23.4(H) 8.9 - 20.6 mg/dL 11/27/2024 11:39 AM [facility] Creatinine 1.27(H) 0.72 - 1.25 mg/dL 11/27/2024 11:39 AM T [facility] Comment:This is a corrected result. Previous result was 1.24 mg/dL on 11/27/2024 at 1010 EDT BUN/Creatinine 18 8 - 20 11/27/2024 11:39 AM [facility] eGFR (mL/min/1.73m2) 78 >=60 mL/min/1.7 3m2 11/27/2024 11:39 AM [facility] Comment: ESTIMATED GFR IS NOT ACCURATE CREATININE CLEARANCE IN PREDICTING GLOMERULAR FILTRATION RATE. ESTIMATED GFR IS NOT APPLICABLE FOR DIALYSIS PATIENTS. This is a corrected result. Previous result was 80 mL/min/1.73m2 on 11/27/2024 at 1010 EDT Albumin 3.3(L) 3.5 - 5.0 g/dL 11/27/2024 11:39 AM T [facility] Alkaline Phosphatase 75 40 - 150 U/L 11/27/2024 11:39 AM [facility] ALT 45 <=45 U/L 11/27/2024 11:39 AM [facility] Comment:This is a corrected result. Previous result was 44 U/L on 11/27/2024 at 1010 EDT AST 88(H) 11 - 34 U/L 11/27/2024 11:39 AM EDT [facility] Comment:This is a corrected result. Previous result was 86 U/L on 11/27/2024 at 1010 EDT Total Bilirubin 1.4(H) 0.2 - 1.2 mg/dL 11/27/2024 11:39 AM EDT [facility] Protein, Total 9.3(H) 6.4 - 8.3 g/dL 11/27/2024 11:39 AM EDT [facility] Comment:This is a corrected result. Previous result was 9.2 g/dL on 11/27/2024 at 1010 EDT Globulin 6.0(H) 2.5 - 4.1 g/dL 11/27/2024 11:39 AM EDT [facility] Comment:This is a corrected result. Previous result was 5.9 g/dL on 11/27/2024 at 1010 EDT Anion Gap 14(H) 4 - 12 11/27/2024 11:39 AM EDT [facility] Comment:This is a corrected result. Previous result was 12 on 11/27/2024 at 1010 EDT A/G Ratio 0.6(L) 0.7 - 1.9 11/27/2024 11:39 AM EDT [facility] Osmolality Calc 280.8 mOsm/kg 11:39 AM EDT [facility] Blood Venipuncture / Unknown 11/27/2024 8:50 AM EDT 11/27/2024 8:57 AM EDT us Pati Greer DEPUTY SHERIFF GENERALIST/BAILIFF LAB BLOOD ORDERABLES Final Resul t [facility] 1 [place], [place] [address] [phone] from Last 3 Months Additional Health Concerns Infection Onset Date Last Indicated MDR Klebsiella pneumoniae (C ) Comment:ESBL MDR 11/24/2024 11/24/2024 Insurance [facility] [place] [place] Advance Directives For more information, please contact: [phone] * Full Code (Latest Code Status on File) Date Activated Date Inactivated Comments 11/05/2024 9:40 PM 12/01/2024 4:51 PM Care Teams Clin Asst Relationship Specialty Start Date End Date Favian Sandy MD [address] [place] [address] [place] [address] PCP - General Internal Medicine 11/05/24
--- OUTSIDE RECORDS SUMMARY | 2025-02-25 20:46 | XMS_ITS | Encounter Summary ---
Author Organization [facility] Address [address] [place] [address] Care Team Providers Care Potato Seed Cutter Name Role Phone Favian Sandy DO Primary Care Provider [phone] Navya Man MD Unavailable Encounter Details Date Type Department Care Team (Latest Contact Info) Description 12/27/2024 Travel Social History Tobacco Use Types Packs/Day [...] money to buy more. Never true 12/20/19 25 Within the past 12 months, t [...] any time in the past 12 m [facility], were you homeless or living in a mcfp (including now)? No 12/19/2024 [facility] Utilities Answer Date Recorded In the past 12 months has th e [employer], gas, oil, or water [employer] threatened to shut off services in your [...] drink first t geri in the morning (EYE-HAND VIOLIN MAKER) to steady your nerves or to get [...] Date of Assessment Author Precautions Environmental surveillance 12/27/2024 8:0 0 PM EDT Eve Jefferson RN * Calculated C-SSRS Risk Score (Lifetime/Recent) Answer Date of Assessment Author No Risk Indicated 12/27/2024 8:00 PM EDT Eve Salguero RN * Question Answer Date of Assessment Author 1. Wish to be (Past 1 Month) No 025 8:00 PM EDT Eve Jefferson, NASEEM 2. Non-Specific Active Suici mini Thoughts (Past 1 Month) No 12/27/2024 8:00 PM EDT Yesica Jefferson, NASEEM 6. Suicidal Behavior (Lifetime) No 8:00 PM EDT Eve Jefferson, NASEEM documented as of this encounter Mental Status * Question Answer Entry Date Author Precautions Environmental surveillance 12/27/2024 8:0 0 PM EDT Eve Jefferson RN documented in this encounter Plan of Treatment Upcoming Encounters Date Type Department Care Team (Late st Contact Info) Description 03/15/2025 3:30 PM EST Clinical Support [facility] Hematology/BMT and Cellular Therapy Program [address] [place] [address] [place] [address] 03/15/2025 4:00 PM EST Office Visit [facility] CC Hematology/BMT and Cellular Therapy Program [address] [place] [address] [place] [address] Parth Fitzgerald MD [address] [place], [place] [id number] 03/28/2025 1:40 PM EST Office Visit [facility] [place] 800 [facility]. [address] [place] [address] Duglas Greer MD [address] [place] [address] 07/18/2025 1:40 PM EDT [facility] Visit [facility] [address], [address] [place] [address] Diana Alonzo PA [address] [place] [address] documented as of this encounter Visit Diagnoses Not on filedocumented in this encounter Additional Health Concerns Infection Onset Date Last Indicated Resolved Time MRSA Comment:Added from external infection. Source: [facility]. 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 Source: [facility]. 11/26/2023 02/09/2025 MDRO 08/22/2024 08/22/2024 Assessment Noted Time PHQ-9 Depression Total Score: 0 09/01/19 12:42 PM EDT A fall risk assessment has been complete d for the patient 09/27/2024 2:07 PM EDT A Body Mass Index follow-up plan has been documented for the patient 01/05/2025 12:57 PM EDT documented as of this encounter Care Teams Potato Seed Cutter Relationship Specialty Start Date End Date Favian Sandy DO [address] [facility] [address] [place] [address] PCP - General 07/05/24 Navya Man MD [address] [facility] 3rd Fl [address] [place] [phone] Consulting Physician Hematology 09/28/24 documented as of this encounter
--- OUTSIDE RECORDS SUMMARY | 2025-02-25 20:46 | XMS_ITS | Encounter Summary ---
Author Organization [facility] Address [address] [place] [address] Care Team Providers Care Delineator Name Role Phone Du Favian Wilfrido SIU Primary Care Provider [phone] Navya Man MD Unavailable Reason for Visit * Reason Onset Date Comments TEST CLAIM 01/03/2025 Encounter Details Date Type Department Care Team (Late st Contact Info) Description 01/03/2025 Telephone [facility] [address] [place] [address] Markie Kaufman, distribution lead None None TEST CLAIM Social History Tobacco Use Types Packs/Day Years [...] any time in the past 12 m [facility], were you homeless or living in a nursing home (including now)? No 12/19/2024 [facility] Utilities Answer Date Recorded In the past 12 months has th e [employer], gas, oil, or water company threatened to [...] drink first t geri in the morning (EYE-COMMERCIAL REPORTER) to steady your nerves or to [...] Date of Assessment Author Precautions Environmental surveillance 01/03/2025 4:0 0 AM EDT Bro Barriga RN * Calculated C-SSRS Risk Score (Lifetime/Recent) Answer Date of Assessment Author No Risk Indicated 01/03/2025 8:00 AM EDT Nessa Wylie RN * Question Answer Date of Assessment Author 1. Wish to be (Past 1 Month) No 025 8:00 AM EDT Nessa Wylie RN 2. Non-Specific Active Suici mini Thoughts (Past 1 Month) No 01/03/2025 8:00 AM EDT Casie Wylie RN 6. Suicidal Behavior (Lifetime) No 8:00 AM EDT Nessa Wylie RN documented as of this encounter Mental Status * Question Answer Entry Date Author Precautions Environmental surveillance 01/03/2025 4:0 0 AM EDT Bro Barriga RN documented in this encounter Miscellaneous Notes * Telephone Encounter - Markie Kaufman CPhT - 01/03/2025 2:00 PM EDT Inpatient PA Pod Test Claim: Drug Name: LINEZOLID 600MG Day Supply: 28 Estimated Copay: PA REQUIRED documented in this encounter Plan of Treatment Upcoming Encounters Date Type Department Care Team (Late st Contact Info) Description 03/15/2025 3:30 PM EST Clinical Support [facility] Hematology/BMT and Cellular Therapy Program [address] [facility] [place] [address] 03/15/2025 4:00 PM EST Office Visit [facility] Hematology/BMT and Cellular Therapy Program [address] [facility] [place] [address] Parth Fitzgerald MD 800 [place] [address] 03/28/2025 1:40 PM EST Office Visit [facility] [place] [address] [facility]. [address] [place] [address] Duglas Greer MD 800 [place] [address] 07/18/2025 1:40 PM EDT Office Visit [facility] [address], [address] [place] [address] Diana Alonzo, PA [address] [place] [address] documented as of this encounter Visit Diagnoses Not on filedocumented in this encounter Additional Health Concerns Infection Onset Date Last Indicated Resolved Time MRSA Comment:Added from external infection. Source: [facility]. 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 Source: [facility]. 11/26/2023 02/09/2025 MDRO 08/22/2024 08/22/2024 Assessment Noted Time PHQ-9 Depression Total Score: 0 09/01/19 25 12:42 PM EDT A fall risk assessment has been complete d for the patient 09/27/2024 2:07 PM EDT A Body Mass Index follow-up plan has been documented for the patient 01/05/2025 12:57 PM EDT documented as of this encounter Care Teams Delineator Relationship Specialty Start Date End Date Favian Sandy, DO [address] [place] [address] [place] [address] PCP - General 07/05/24 Navya Man MD [address] [place] [address] Consulting Physician Hematology 09/28/24 documented as of this encounter
--- OUTSIDE RECORDS SUMMARY | 2025-02-25 20:46 | XMS_ITS | Encounter Summary ---
Author Organization Healthcare Address [address] [place] [address] Care Team Providers Care Adult Health Clinical Nurse Specialist Name Role Phone DuFavian Wilfrido SIU Primary Care Provider [phone] Navya Man MD Unavailable Annette Gomes RN Unavailable Unavailable Encounter Details Date Type Department Care Team (Latest Contact Info) Description 02/06/2025 Travel Social History Tobacco Use Types Packs/Day [...] any time in the past 12 m [facility], were you homeless or living in a fpc (including now)? No 02/06/2025 [facility] Utilities Answer Date Recorded In the past 12 months has th e [employer], gas, oil, or water company threatened to [...] drink first t geri in the morning (EYE-SORTING MACHINE OPERATOR) to steady your nerves or to get [...] Date of Assessment Author Precautions Environmental surveillance 02/06/2025 8:0 0 PM EST Gurung, Ingrid * Calculated C-SSRS Risk Score (Lifetime/Recent) Answer Date of Assessment Author No Risk Indicated 02/06/2025 8:00 PM EST Gurung, Ingrid * Question Answer Date of Assessment Author 1. Wish to be (Past 1 Month) No 025 8:00 PM EST Guadis, Ingrid 2. Non-Specific Active Suici mini Thoughts (Past 1 Month) No 02/06/2025 8:00 PM EST Gurujosh, Ingrid 6. Suicidal Behavior (Lifetime) No 8:00 PM EST Gurung, Ingrid documented as of this encounter Mental Status * Question Answer Entry Date Author Precautions Environmental surveillance 02/06/2025 8:0 0 PM EST Gurung, Ingrid documented in this encounter Plan of Treatment Upcoming Encounters Date Type Department Care Team (Late st Contact Info) Description 03/15/2025 3:30 PM EST Clinical Support [facility] Hematology/BMT and Cellular Therapy Program [address] [address] 03/15/2025 4:00 PM EST Office Visit [facility] Hematology/BMT and Cellular Therapy Program [address] [place] [address] [place] [address] Parth Fitzgerald MD 800 [place] [address] 03/28/2025 1:40 PM EST Office Visit [facility] [place] [address] [place] [address] Duglas Greer MD [address] [place] [address] 07/18/2025 1:40 PM EDT Office Visit [facility] [address], [address] [place] [address] Diana Alonzo PA [address] [place] [address] documented as of this encounter Visit Diagnoses Not on filedocumented in this encounter Additional Health Concerns Infection Onset Date Last Indicated Resolved Time MRSA Comment:Added from external infection. Source: [facility]. 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 Source: [facility]. 11/26/2023 02/09/2025 MDRO 08/22/2024 08/22/2024 Rhinovirus 01/17/2025 02/10/2025 Assessment Noted Time PHQ-9 Depression Total Score: 0 09/01/19 12:42 PM EDT A fall risk assessment has been complete d for the patient 09/27/2024 2:07 PM EDT A Body Mass Index follow-up plan has been documented for the patient 02/13/2025 1:18 PM EST documented as of this encounter Care Teams Adult Health Clinical Nurse Specialist Relationship Specialty Start Date End Date Favian Sandy DO 12[address] [facility] [address] [place] [address] PCP - General 07/05/24 Navya Man MD [address] [place] [address] Consulting Physician Hematology 09/28/24 Annette Gomes RN None None Registered Nurse 01/18/25 documented as of this encounter
--- OUTSIDE RECORDS SUMMARY | 2025-02-25 20:46 | XMS_ITS | Encounter Summary ---
Author Organization [facility] Address [address] [place] [address] Care Team Providers Care Kiln Head House Operator Name Role Phone DuFavian Wilfrido SIU Primary Care Provider [phone] Navya Man MD Unavailable Annette Gomes RN Unavailable Unavailable Encounter Details Date Type Department Care Team (Latest Contact Info) Description 02/10/2025 Travel Social History Tobacco Use Types Packs/Day [...] living in a mcfp (including now)? No 02/06/2025 [facility] Utilities Answer Date Recorded In the past 12 months has th e [employer], gas, oil, or water company threatened to [...] drink first t geri in the morning (EYE-ADHESIVE SPRAYER) to steady your nerves or to get [...] Date of Assessment Author Precautions Environmental surveillance 02/10/2025 5:5 2 PM Kristina Anaya RN * Calculated C-SSRS Risk Score (Lifetime/Recent) Answer Date of Assessment Author No Risk Indicated 02/10/2025 8:00 AM Kristina Meade RN * Question Answer Date of Assessment Author 1. Wish to be (Past 1 Month) No 025 8:00 AM Kristina Anaya RN 2. Non-Specific Active Suici mini Thoughts (Past 1 Month) No 02/10/2025 8:00 AM Dorothy Anaya RN 6. Suicidal Behavior (Lifetime) No 8:00 AM Kristina Anaya RN documented as of this encounter Mental Status * Question Answer Entry Date Author Precautions Environmental surveillance 02/10/2025 5:5 2 PM Kristina Anaya RN documented in this encounter Plan of Treatment Upcoming Encounters Date Type Department Care Team (Late st Contact Info) Description 03/15/2025 3:30 PM EST Clinical Support [facility] Hematology/BMT and Cellular Therapy Program [address] [place] [address] [place] [address] 03/15/2025 4:00 PM EST Office Visit [facility] Hematology/BMT and Cellular Therapy Program [address] [place] [address] [place] [address] Parth Fitzgerald MD 800 [place] [address] 03/28/2025 1:40 PM EST Office Visit [facility] [place] [address] [place] [address] Duglas Greer MD [address] [place] [address] 07/18/2025 1:40 PM EDT Office Visit [facility] [address], [address] [place] [address] Diana Alonzo PA [address] [place] [address] documented as of this encounter Visit Diagnoses Not on filedocumented in this encounter Additional Health Concerns Infection Onset Date Last Indicated Resolved Time MRSA Comment:Added from external infection. Source: [facility]. 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 Source: [facility]. 11/26/2023 02/09/2025 MDRO 08/22/2024 08/22/2024 Rhinovirus 01/17/2025 02/10/2025 Respiratory Rule-Out 02/10/2025 02/10/2025 025 10:20 PM EST Assessment Noted Time PHQ-9 Depression Total Score: 0 09/01/19 25 12:42 PM EDT A fall risk assessment has been complete d for the patient 09/27/2024 2:07 PM EDT A Body Mass Index follow-up plan has been documented for the patient 02/13/2025 1:18 PM EST documented as of this encounter Care Teams Kiln Head House Operator Relationship Specialty Start Date End Date Favian Sandy DO [address] [place] [address] PCP - General 07/05/24 Navya Man MD [address] [facility] 3rd Fl [address] [place] [address] Consulting Physician Hematology 09/28/24 Annette Gomes, RN None None Registered Nurse 01/18/25 documented as of this encounter
--- OUTSIDE RECORDS SUMMARY | 2025-02-25 20:46 | XMS_ITS | Encounter Summary ---
Author Organization [facility] Address [address] [place] [address] Care Team Providers Care Rn Geriatric Name Role Phone DuFavian matamoros Wilfrido SIU Primary Care Provider [phone] Navya Man MD Unavailable Annette Gomes RN Unavailable Unavailable Reason for Visit * Reason Comments TCM Encounter Details Date Type Department Care Team (Late st Contact Info) Description 02/15/2025 Patient Outreach [facility] [address] [place] [address] Annette Gomes, RN None None [...] any time in the past 12 m [facility], were you homeless or living in a usp (including now)? No 02/06/2025 [facility] Utilities Answer Date Recorded In the [...] drink first t geri in the morning (EYE-EXTENDED DAY TEACHER) to steady your nerves or to get [...] Progress Notes - Annette Gomes RN - 02/15/2025 11:19 AM EST Admit Date: 02/05 Discharge Date: 02/13 Hospital Service: Medicine Discharge Diagnosis: Sickle Cell 02/15/2025 TCM call # 1 Patient Reached: Patient mother reached, she hasn't spoke with patient this morning. RN to follow back up. Outcome: RN to fu back with patient and mother Action: Check list updated. Medication changes: n/a [facility] appointment: 02/18 with ID Items to address at [facility]: Continue Bactrim through 02/18 Follow-up with Infectious Disease 02/18 Follow up with Hematology as scheduled 02/19/2025 TCM call # 2 Patient Reached: No Outcome: Left Vmail Action: n/a No further TCM calls, RN to monitor HRCM needs and provide additional outreaches. documented in this encounter Plan of Treatment Upcoming Encounters Date Type Department Care Team (Late st Contact Info) Description 03/15/2025 3:30 PM EST Clinical Support [facility] Hematology/BMT and Cellular Therapy Program [address] [facility], [address] [place] [address] [place] [address] 03/15/2025 4:00 PM EST Office Visit [facility] Hematology/BMT and Cellular Therapy Program [address] [facility], [address] [place] [address] Parth Fitzgerald MD 800 [place] [address] 03/28/2025 1:40 PM EST Office Visit [facility] [place] [address] [facility] [place] [address] Duglas Greer MD 800 [place] [address] 07/18/2025 1:40 PM EDT Office Visit [facility] [address] [place] [address] Diana Alonzo, JAMAL [address] [place] [address] documented as of this encounter Visit Diagnoses Not on filedocumented in this encounter Additional Health Concerns Infection Onset Date Last Indicated Resolved Time MRSA Comment:Added from external infection. Source: [facility]. 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 Source: [facility]. 11/26/2023 02/09/2025 MDRO 08/22/2024 08/22/2024 [...] documented as of this encounter Care Teams Rn Geriatric Relationship Specialty Start Date End Date Favian Sandy, DO 1210 [facility] [address] [place] [address] PCP - General 07/05/24 Navya Man MD [address] [place] [address] Consulting Physician Hematology 09/28/24 Annette Gomes, RN None None Registered Nurse 01/18/25 documented as of this encounter
--- OUTSIDE RECORDS SUMMARY | 2025-02-25 20:46 | XMS_ITS | Encounter Summary ---
Author Organization [facility] Address [address] [place] [address] Care Team Providers Care Sign Writer Hand Name Role Phone DuFavian Wilfrido SIU Primary Care Provider [phone] Navya Man MD Unavailable Annette Gomes RN Unavailable Unavailable Encounter Details Date Type Department Care Team (Late st Contact Info) Description 02/05/2025 Orders Only External Location [address] [place] [address] Provider, External Social History Tobacco Use Types Packs/Day Years [...] in a senior care (including now)? No 02/06/2025 [facility] Utilities Answer Date Recorded In [...] drink first t geri in the morning (EYE-SKIN PEELING MACHINE OPERATOR) to steady your nerves or [...] Date of Assessment Author Precautions Environmental surveillance 02/11/2025 8:0 0 AM Elmer Chowdhury RN * Calculated C-SSRS Risk Score (Lifetime/Recent) Answer Date of Assessment Author No Risk Indicated 02/11/2025 8:00 AM Elmer Chowdhury RN * Question Answer Date of Assessment Author 1. Wish to be (Past 1 Month) No 025 8:00 AM Elmer Chowdhury RN 2. Non-Specific Active Suici mini Thoughts (Past 1 Month) No 02/11/2025 8:00 AM EST Norman Rosen RN 6. Suicidal Behavior (Lifetime) No 8:00 AM Elmer Chowdhury RN documented as of this encounter Mental Status * Question Answer Entry Date Author Precautions Environmental surveillance 02/11/2025 8:0 0 AM Elmer Chowdhury RN * Question Answer Entry Date Author Scale Used Pj 02/05/2025 7:30 PM EST Rm Samayoa RN documented in this encounter Plan of Treatment Upcoming Encounters Date Type Department Care Team (Late st Contact Info) Description 03/15/2025 3:30 PM EST Clinical Support [facility] Hematology/BMT and Cellular Therapy Program [address] [place] [address] 03/15/2025 4:00 PM EST Office Visit [facility]ology/BMT and Cellular Therapy Program [address] [place] [address] Parth Fitzgerald MD 800 [place] [address] 03/28/2025 1:40 PM EST Office Visit [facility] [place] [address] [place] [address] Duglas Greer MD [address] [place] [address] 07/18/2025 1:40 PM EDT Office Visit [facility] [address], [address] [place] [address] Diana Alonzo PA [address] [place] [address] documented as of this encounter Procedures Procedure Name Priority Date/Time Associated Diagnosis Comments XR OUTSIDE IMAGES 02/05/2025 11:17 AM EST documented in this encounter Results * XR OUTSIDE IMAGES (02/05/2025 11:17 AM EST) Anatomical Region Laterality Modality Radiographic Shavon ging 02/05/2025 11:1 7 AM EST us External Provider IMG XR PROCEDURES Edited Resul t - Final documented in this encounter Visit Diagnoses Not on filedocumented in this encounter Additional Health Concerns Infection Onset Date Last Indicated Resolved Time MRSA Comment:Added from external infection. Source: [facility]. 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 Source: [facility]. 11/26/2023 02/09/2025 MDRO 08/22/2024 08/22/2024 Rhinovirus 01/17/2025 02/10/2025 COVID-19 Rule-Out 02/05/2025 02/05/2025 02/05/2025 4:57 PM EST Respiratory Rule-Out 02/10/2025 02/10/2025 025 10:20 PM EST Assessment Noted Time PHQ-9 Depression Total Score: 0 06/27/20 25 12:42 PM EDT A fall risk assessment has been complete d for the patient 09/27/2024 2:07 PM EDT A Body Mass Index follow-up plan has been documented for the patient 02/13/2025 1:18 PM EST documented as of this encounter Care Teams Sign Writer Hand Relationship Specialty Start Date End Date Favian Sandy DO [address] [place] [address] [place] [address] PCP - General 07/05/24 Navya Man MD [address] [address] Consulting Physician Hematology 09/28/24 Annette Gomes, RN None None Registered Nurse 01/18/25 documented as of this encounter
--- OUTSIDE RECORDS SUMMARY | 2025-02-25 20:46 | XMS_ITS | Encounter Summary ---
Author Organization Healthcare Address [address] [place] [address] Care Team Providers Care Library Media Technician Name Role Phone DuFavian Wilfrido SIU Primary Care Provider [phone] Navya Man MD Unavailable Reason for Visit * Reason Onset Date Comments Prior-authorization/insurance Verification 01/03 Encounter Details Date Type Department Care Team ([facility] Contact Info) Description 01/03/2025 Telephone [facility] [address] [place] [phone] Aric Lee MD [address] [place] [address] Prior-authorization/ins urance Verification Social History Tobacco Use Types Packs/Day Years [...] any time in the past 12 m [facility], were you homeless or living in a halfway (including now)? No 12/19/2024 [facility] Utilities Answer Date Recorded In the [...] drink first t geri in the morning (EYE-QUITLINE COUNSELOR) to steady your nerves or to get [...] Bro Barriga RN documented in this encounter Plan of Treatment Upcoming Encounters Date Type Department Care Team (Late st Contact Info) Description 03/15/2025 3:30 PM EST Clinical Support [facility] Hematology/BMT and Cellular Therapy Program [address] , [address] [place] [address] [place] [address] 03/15/2025 4:00 PM EST Office Visit [facility] Hematology/BMT and Cellular Therapy Program 750 [facility], [address] [place] [address] Parth Fitzgerald MD [address] [place] [address] 03/28/2025 1:40 PM EST Office Visit [facility] [place] 800 [facility]. [address] [place] [address] Duglas Greer MD [address] [place] [address] 07/18/2025 1:40 PM EDT [facility] [address], [address] [place] [address] Diana Alonzo PA [address] [place] [address] documented as of this encounter Visit Diagnoses Not on filedocumented in this encounter Additional Health Concerns Infection Onset Date Last Indicated Resolved Time MRSA Comment:Added from external infection. Source: [facility]. 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 Source: [facility]. 11/26/2023 02/09/2025 MDRO 08/22/2024 08/22/2024 Assessment Noted Time PHQ-9 Depression Total Score: 0 09/01/19 12:42 PM EDT A fall risk assessment has been complete d for the patient 09/27/2024 2:07 PM EDT A Body Mass Index follow-up plan has been documented for the patient 01/05/2025 12:57 PM EDT documented as of this encounter Care Teams Library Media Technician Relationship Specialty Start Date End Date Favian Sandy DO [address] [place] [address] PCP - General 07/05/24 Navya Man MD [address] [address] Consulting Physician Hematology 09/28/24 documented as of this encounter
--- OUTSIDE RECORDS SUMMARY | 2025-02-25 20:46 | XMS_ITS | Encounter Summary ---
Author Organization [facility] Address [address] [place] [address] Care Team Providers Care Videotape Operator Name Role Phone DuFavian Wilfrido SIU Primary Care Provider [phone] Navya Man MD Unavailable Encounter Details Date Type Department Care Team (Late st Contact Info) Description 12/31/2024 [facility] [address], [address] [place] [address] Jackie Menard Social History Tobacco Use Types Packs/Day Years [...] any time in the past 12 m [facility], were you homeless or living in a jail (including now)? No 12/19/2024 [facility] Utilities Answer Date Recorded In the [...] drink first t geri in the morning (EYE-DIRECTOR ALLIANCE MARKETING) to steady your nerves or to get [...] Date of Assessment Author Precautions Environmental surveillance 12/31/2024 4:0 0 PM EDT Yovana Astudillo RN * Calculated C-SSRS Risk Score (Lifetime/Recent) Answer Date of Assessment Author No Risk Indicated 12/31/2024 12:00 PM EDT Yovana Astudillo RN * Question Answer Date of Assessment Author 1. Wish to be (Past 1 Month) No 025 12:00 PM EDT Yovana Astudillo RN 2. Non-Specific Active Suici mini Thoughts (Past 1 Month) No 12/31/2024 12:00 PM EDT Abdelrahman Astudillo RN 6. Suicidal Behavior (Lifetime) No 12:00 PM EDT Yovana Astudillo RN documented as of this encounter Mental Status * Question Answer Entry Date Author Precautions Environmental surveillance 12/31/2024 4:0 0 PM EDT Yovana Astudillo RN documented in this encounter Miscellaneous Notes * Progress Notes - Jackie Menard - 12/31/2024 5:06 PM EDT Per chart review pt medication approved and NST will be completed when pt is discharged. LTC will follow up in 6 months to assess pt tx status. documented in this encounter Plan of Treatment Upcoming Encounters Date Type Department Care Team (Late st Contact Info) Description 03/15/2025 3:30 PM EST Clinical Support [facility] Hematology/BMT and Cellular Therapy Program [address] [facility] [place] [address] 03/15/2025 4:00 PM EST Office Visit [facility] Hematology/BMT and Cellular Therapy Program [address] [facility] [place] [address] Parth Fitzgerald MD [address] [place], [place] [phone] 03/28/2025 1:40 PM EST Office Visit [facility] [place] [address] [facility]. [address] [place] [address] Duglas Greer MD [address] [place] [address] 07/18/2025 1:40 PM EDT Office Visit [facility] [address], [address] [place] [address] Diana Alonzo, JAMAL [address] [place] [address] documented as of this encounter Visit Diagnoses Not on filedocumented in this encounter Additional Health Concerns Infection Onset Date Last Indicated Resolved Time MRSA Comment:Added from external infection. Source: [facility]. 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 Source: [facility]. 11/26/2023 02/09/2025 MDRO 08/22/2024 08/22/2024 Assessment Noted Time PHQ-9 Depression Total Score: 0 09/01/19 25 12:42 PM EDT A fall risk assessment has been complete d for the patient 09/27/2024 2:07 PM EDT A Body Mass Index follow-up plan has been documented for the patient 01/05/2025 12:57 PM EDT documented as of this encounter Care Teams Videotape Operator Relationship Specialty Start Date End Date Favian Sandy, [address] [facility] [address] [place] [address] PCP - General 07/05/24 Navya Man MD [address] [phone] Consulting Physician Hematology 09/28/24 documented as of this encounter
--- OUTSIDE RECORDS SUMMARY | 2025-02-25 20:46 | XMS_ITS | Encounter Summary ---
Author Organization [facility] Address [address] [place] [id number] Care Team Providers Care Fishing Guide Name Role Phone DuFavian Wilfrido SIU Primary Care Provider [phone] Navya Man MD Unavailable Camilla Guerrier RN Unavailable Unavailable Encounter Details Date Type Department Care Team (Late st Contact Info) Description 12/27/2024 Telephone [facility] [address] [place] [phone] Ileana Gongora, [place] [address] Social History Tobacco Use Types Packs/Day Years [...] the money to buy more. Never true 01/09/20 25 Within the past 12 months, t he food you bought just didn't last and you didn't have money to get more. Never true 01/08/2025 PRAPARE - Transportation Answer Date Re corded In the past 12 months, has l ack of transportation kept you from medical appointments or from getting medications? No 06/2024 In the past 12 months, has l ack of transportation kept you from meetings, work, or from getting things needed for daily living? No 01/08/2025 Housing Stability Vital Sign Answer Sourav e Recorded In the last 12 months, was t here a time when you were not able to pay the mortgage or rent on time? No 01/08/2025 In the past 12 months, how m any times have you moved where you were living? 0 01/08/2025 At any time in the past 12 m [facility], were you homeless or living in a group home (including now)? No 01/08/2025 [facility] Utilities Answer Date Recorded In the past 12 months has th e electric, gas, oil, or water company threatened to shut off services in your home? No 01/08/2025 CAGE ASSESSMENT Answer Date Recorded Cage unable [...] drink first t geri in the morning (EYE-CORN CUTTER) to steady your nerves or to get [...] Answer Date of Assessment Author Precautions Fall risk;[facility] surveillance 01/04/2025 8:00 PM EDT Lucero Alston RN * Calculated C-SSRS Risk Score (Lifetime/Recent) Answer Date of Assessment Author No Risk Indicated 01/05/2025 8:00 AM EDT Nessa Wylie RN * Question Answer Date of Assessment Author 1. Wish to be (Past 1 Month) No 025 8:00 AM EDT Nessa Wylie RN 2. Non-Specific Active Suici mini Thoughts (Past 1 Month) No 01/05/2025 8:00 AM EDT Casie Wylie RN 6. Suicidal Behavior (Lifetime) No 8:00 AM EDT Nessa Wylie RN documented as of this encounter Mental Status * Question Answer Entry Date Author Precautions Fall risk;[facility] surveillance 01/04/2025 8:00 PM EDT Lucero Alston RN documented in this encounter Miscellaneous Notes * Telephone Encounter - Papo Campo PharmD - 01/09/2025 9:58 AM EST 01/09/25 - Pt is locked in and trying to get override on medicaid * Telephone Encounter - Ileana Gongora PharmD - 12/27/2024 3:59 PM EDT PA request has been approved and pharmacy notified (Filling pharmacy will be notified by phone, fax, or submitted prescription) Authorized Medication: Vosevi Name of Insurance Approving PA: [facility] PA Number: [id number] JAMAL Effective Dates: 12/27/24-03/21/2025 Additional Info: will await discharge details to set up initial education and filling * Telephone Encounter - Ileana Gongora PharmD - 12/27/2024 3:58 PM EDT Progress Notes Diana Alonzo PA (Physician Senior Outside Sales Representative) Transplant Patient is a complex 29 yo male with sickle cell disease, 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 Pt with HCV gt 1a, normal liver on imaging, and fibroscan 4.5 kPa. 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 He has had treatment in [facility] in the past but the details are [...] CC Hematology/BMT and Cellular Therapy Program [address] [place] [phone] 03/15/2025 4:00 PM EST Office Visit [facility]BMT and Cellular Therapy Program [address] [place] [address] Parth Fitzgerald MD [address] [place] [address] 03/28/2025 1:40 PM EST Office Visit [facility] [place] [address] [place] [address] Duglas Greer MD [address] [place] [phone] 07/18/2025 1:40 PM EDT Office Visit [place] [facility] [address] [place] [address] Diana Alonzo PA [address] [place] [address] documented as of this encounter Visit Diagnoses Not on filedocumented in this encounter Additional Health Concerns Infection Onset Date Last Indicated Resolved Time MRSA Comment:Added from external infection. Source: [facility]. 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 Source: [facility]. 11/26/2023 02/09/2025 MDRO 08/22/2024 08/22/2024 Assessment Noted Time PHQ-9 Depression Total Score: 0 09/01/19 12:42 PM EDT A fall risk assessment has been complete d for the patient 09/27/2024 2:07 PM EDT A Body Mass Index follow-up plan has been documented for the patient 01/05/2025 12:57 PM EDT documented as of this encounter Care Teams Fishing Guide Relationship Specialty Start Date End Date Favian Sandy DO [address] [place] [address] [place] [address] PCP - General 07/05/24 Navya Man MD [address] [place] [address] Consulting Physician Hematology 09/28/24 Camilla Guerrier, RN VALUE-BASED TRANSFORMATION PROGRAM [place] Biochemical Development Engineer 01/08/25 01/18/25 documented as of this encounter
--- OUTSIDE RECORDS SUMMARY | 2025-02-25 20:46 | XMS_ITS | Encounter Summary ---
Author Organization Healthcare Address [address] [place] [address] Care Team Providers Care Cancer Registry Coordinator Name Role Phone DuFavian Wilfrido SIU Primary Care Provider [phone] Navya Man MD Unavailable nAnette Gomes RN Unavailable Unavailable Encounter Details Date Type Department Care Team (Latest Contact Info) Description 02/08/2025 Travel Social History Tobacco Use Types Packs/Day [...] any time in the past 12 m [facility], were you homeless or living in a senior living (including now)? No 02/06/2025 [place] Utilities Answer Date Recorded In the past 12 months has th e [employer], gas, oil, or water company threatened to [...] drink first t geri in the morning (EYE-GENERAL CLERK) to steady your nerves or to [...] Date of Assessment Author Precautions Environmental surveillance 02/08/2025 8:0 0 PM EST Carolina Knowles RN * Calculated C-SSRS Risk Score (Lifetime/Recent) Answer Date of Assessment Author No Risk Indicated 02/08/2025 8:00 PM EST Carolina Knowles RN * Question Answer Date of Assessment Author 1. Wish to be (Past 1 Month) No 025 8:00 PM Carolina Martines RN 2. Non-Specific Active Suici mini Thoughts (Past 1 Month) No 02/08/2025 8:00 PM EST Carolina Knowles RN 6. Suicidal Behavior (Lifetime) No 8:00 PM EST Carolina Knowles RN documented as of this encounter Mental Status * Question Answer Entry Date Author Precautions Environmental surveillance 02/08/2025 8:0 0 PM EST Carolina Knowles RN documented in this encounter Plan of Treatment Upcoming Encounters Date Type Department Care Team ([facility] st Contact Info) Description 03/15/2025 3:30 PM EST Clinical Support [facility]ematology/BMT and Cellular Therapy Program [address] [place] [address] [place] [address] 03/15/2025 4:00 PM EST Office Visit [facility]ology/BMT and Cellular Therapy Program [address] [place] [address] [place] [address] Parth Fitzgerald MD [address] [place] [address] 03/28/2025 1:40 PM EST Office Visit [facility] [place] [address] [place] [address] Duglas Greer MD [address] [place] [address] 07/18/2025 1:40 PM EDT Office Visit [place] [facility] [address] [place] [address] Diana Alonzo, PA [address] [place] [address] documented as of this encounter Visit Diagnoses Not on filedocumented in this encounter Additional Health Concerns Infection Onset Date Last Indicated Resolved Time MRSA Comment:Added from external infection. Source: [facility]. 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 Source: [facility]. 11/26/2023 02/09/2025 MDRO 08/22/2024 08/22/2024 Rhinovirus 01/17/2025 02/10/2025 Assessment Noted Time PHQ-9 Depression Total Score: 0 09/01/19 12:42 PM EDT A fall risk assessment has been complete d for the patient 09/27/2024 2:07 PM EDT A Body Mass Index follow-up plan has been documented for the patient 02/13/2025 1:18 PM EST documented as of this encounter Care Teams Cancer Registry Coordinator Relationship Specialty Start Date End Date Favian Snady DO [address] [facility] [address] [place] [address] PCP - General 07/05/24 Navya Man MD [address] [facility] [address] [place] [phone] Consulting Physician Hematology 09/28/24 Annette Gomes, RN None None Registered Nurse 01/18/25 documented as of this encounter
--- OUTSIDE RECORDS SUMMARY | 2025-02-25 20:46 | XMS_ITS | Encounter Summary ---
Author Organization Healthcare Address [address] [place] [address] Care Team Providers Care Attending Ambulatory Care Name Role Phone DuFavian Wilfrido SIU Primary Care Provider [phone] Navya Man MD Unavailable Annette Gomes RN Unavailable Unavailable Encounter Details Date Type Department Care Team (Latest Contact Info) Description 02/05/2025 Travel Social History Tobacco Use Types Packs/Day [...] any time in the past 12 m [facility], were you homeless or living in a half-way (including now)? No 02/06/2025 [facility] Utilities Answer Date Recorded In the past 12 months has th e [employer], gas, oil, or water company threatened to [...] drink first t geri in the morning (EYE-ROPE MAKER) to steady your nerves or to [...] Answer Date of Assessment Author Precautions None 02/05/2025 8:00 PM EST Rm Samayoa, RN * Calculated C-SSRS Risk Score (Lifetime/Recent) Answer Date of Assessment Author No Risk Indicated 02/05/2025 8:00 PM Rm Siddiqi, NASEEM * Question Answer Date of Assessment Author 1. Wish to be (Past 1 Month) No 02/05/2025 8:00 PM Ammy Arauz, NASEEM 2. Non-Specific Active Suicidal Thoughts (Past 1 Month) No 02/05/2025 8:00 PM Ammy Arauz, NASEEM 6. Suicidal Behavior (Lifetime) No 02/05/2025 8:00 PM Ammy Arauz, NASEEM documented as of this encounter Mental Status * Question Answer Entry Date Author Precautions None 02/05/2025 8:00 PM Rm Palmer, NASEEM * Question Answer Entry Date Author Scale Used Pj 02/05/2025 7:30 PM EST Rm Samayoa, RN documented in this encounter Plan of Treatment Upcoming Encounters Date Type Department Care Team (Late st Contact Info) Description 03/15/2025 3:30 PM EST Clinical Support [facility]BMT [facility] Cellular Therapy Program [address] [place] [address] [place] [phone] 03/15/2025 4:00 PM EST Office Visit [facility]ology/BMT and Cellular Therapy Program [address] [place] [phone] Parth Fitzgerald MD [address] [place] [address] 03/28/2025 1:40 PM EST Office Visit [facility] [place] [address] [place] [address] Duglas Greer MD [address] [place] [address] 07/18/2025 1:40 PM EDT Office Visit [place] [facility] [address], [address] [place] [address] Diana Alonzo PA [address] [place] [address] documented as of this encounter Visit Diagnoses Not on filedocumented in this encounter Additional Health Concerns Infection Onset Date Last Indicated Resolved Time MRSA Comment:Added from external infection. Source: [facility]. 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 Source: [facility]. 11/26/2023 02/09/2025 MDRO 08/22/2024 08/22/2024 Rhinovirus 01/17/2025 02/10/2025 COVID-19 Rule-Out 02/05/2025 02/05/2025 02/05/2025 4:57 PM EST Assessment Noted Time PHQ-9 Depression Total Score: 0 09/01/19 25 12:42 PM EDT A fall risk assessment has been complete d for the patient 09/27/2024 2:07 PM EDT A Body Mass Index follow-up plan has been documented for the patient 02/13/2025 1:18 PM EST documented as of this encounter Care Teams Attending Ambulatory Care Relationship Specialty Start Date End Date Favian Sandy DO [address] [place] [address] [place] [address] PCP - General 07/05/24 Navya Man MD [address] [phone] Consulting Physician Hematology 09/28/24 Annette Gomes, RN None None Registered Nurse 01/18/25 documented as of this encounter
--- OUTSIDE RECORDS SUMMARY | 2025-02-25 20:46 | XMS_ITS | Encounter Summary ---
Author Organization [facility] Address [address] [place] [address] Care Team Providers Care Hose Turner Name Role Phone DuFavian matamoros Wilfrido DO Primary Care Provider [phone] Navya Man MD Unavailable Annette Gomes RN Unavailable Unavailable Encounter Details Date Type Department Care Team (Late st Contact Info) Description 02/21/2025 Orders Only [facility] CC Hematology/BMT and Cellular Therapy Program [address] [facility] [place] [address] Seema Atkinson MD 800 [facility] [address] [place] [address] Sickle cell disease with crisis and other complication (CMS/HCC) (Primary Dx) Social History Tobacco Use [...] any time in the past 12 m [facility], were you homeless or living in a detention (including now)? No 02/06/2025 [facility] Utilities Answer Date Recorded In the past 12 months has th e [employer], [employer], oil, or water [employer] threatened to shut off services in your [...] drink first t geri in the morning (EYE-DOCTOR OF AUDIOLOGY) to steady your nerves or to get rid of a hangover? 0 01/17/2025 CAGE Questionnaire Score 0 025 Sex and Gender Information Value Date Recorded Sex Assigned at Male 03/16/2024 2:12 PM EST Legal Sex Male 7:40 PM EDT Gender Identity Not on file Sexual Orientation Not on file documented as of this encounter Functional Status * Over the [...] 02/21/2025 11:01 AM EST Watters, Tempest * Question Answer Date of Assessment Author [...] all 02/21/2025 11:01 AM EST Jocelin Watters Thoughts that you would be b jose luis off or hurting yourself in some way Not at all 02/21/2025 11:01 AM Jocelin Trevizo Patient Health Questionnaire -9 Score 0 02/21/2025 [...] Description 03/15/2025 3:30 PM EST Clinical Support [facility] CC Hematology/BMT and Cellular Therapy Program [address] [place] [phone] 03/15/2025 4:00 PM EST Office Visit [facility] Hematology/BMT and Cellular Therapy Program [address] [place] [address] [place] [phone] Parth Fitzgerald MD 800 [place], [place] [phone] 03/28/2025 1:40 PM EST Office Visit [facility] [place] Braydon 800 [facility]. [address] [place] [phone] Duglas Greer MD [address] [place] [phone] 07/18/2025 1:40 PM EDT [facility] [address] [place] [address] Diana Alonzo, PA [address] [place] [address] documented as of this encounter Results * Type and screen (02/22/2025 1:01 PM EST) Pathologist [facility] ABO/Rh O Positive 02/22/2025 1:36 PM EST [...] ORDERABLES F inal Result BLOOD BANK [address] [place] [address], * (ABNORMAL) CBC and Differential (02/22/2025 1:01 PM EST) Pathologist [facility] WBC Count 12.02(H) 3.70 - 10.30 10*3/uL LAB HEMATOLOGY METHOD 02/22/2025 1:37 PM [address] [facility] RBC Count 3.11(L) 4.60 - 6.10 10*6/uL LAB HEMATOLOGY METHOD 02/22/2025 1:37 PM EST [facility] HGB 9.0(L) 13.7 - 17.5 g/dL LAB HEMATOLOGY METHOD 02/22/2025 1:37 PM EST [facility] HCT 27.1(L) 40.0 - 51.0 % LAB HEMATOLOGY METHOD 02/22/2025 1:37 PM EST [facility] Platelet Count 474(H) 155 - 369 10*3/uL LAB HEMATOLOGY METHOD 02/22/2025 1:37 PM EST [facility] MCV 87 79 - 98 fL LAB HEMATOLOGY METHOD 02/22/2025 1:37 PM EST [facility] MCH 28.9 26.0 - 32.0 pg LAB HEMATOLOGY METHOD 02/22/2025 1:37 PM EST [facility] MCHC 33.2 30.7 - 35.5 g/dL LAB HEMATOLOGY METHOD 02/22/2025 1:37 PM [facility] RDW 18.3(H) 11.5 - 14.5 % LAB HEMATOLOGY METHOD 02/22/2025 1:37 PM [facility] MPV 8.5(L) 8.8 - 12.5 fL LAB HEMATOLOGY METHOD 02/22/2025 1:37 PM [facility] nRBC 0.3(H) <=0.0 per 100 WBCs LAB HEMATOLOGY METHOD 02/22/2025 1:37 PM [facility] Differential Type Automated LAB HEMATOLOGY METHOD 02/22/2025 1:37 PM [facility] Neutrophils % 68 % LAB HEMATOLOGY METHOD 02/22/2025 1:37 PM [facility] Lymphocytes % 20 % LAB HEMATOLOGY METHOD 02/22/2025 1:37 PM [facility] Monocytes % 10 % LAB HEMATOLOGY METHOD 02/22/2025 1:37 PM [facility] Eosinophils % 1 % LAB HEMATOLOGY METHOD 02/22/2025 1:37 PM [facility] Basophils % 1 % LAB HEMATOLOGY METHOD 02/22/2025 1:37 PM [facility] Immature Granulocytes % 0 % LAB HEMATOLOGY METHOD 02/22/2025 1:37 PM [facility] Neutrophils Absolute 8.15(H) 1.60 - 6.10 10*3/uL LAB HEMATOLOGY METHOD 02/22/2025 1:37 PM [facility] Lymphocytes Absolute 2.35 1.20 - 3.90 10*3/uL LAB HEMATOLOGY METHOD 02/22/2025 1:37 PM [facility] Monocytes Absolute 1.19(H) 0.30 - 0.90 10*3/uL LAB HEMATOLOGY METHOD 02/22/2025 1:37 PM [facility] Eosinophils Absolute 0.12 0.00 - 0.50 10*3/uL LAB HEMATOLOGY METHOD 02/22/2025 1:37 PM [facility] Basophils Absolute 0.17(H) 0.00 - 0.10 10*3/uL LAB HEMATOLOGY METHOD 02/22/2025 1:37 PM [facility] Immature Granulocytes Absolute 0.04 0.00 - 0.06 10*3/uL LAB HEMATOLOGY METHOD 02/22/2025 1:37 PM [facility] Blood Blood sample taken from central line / Unknown (Port) Long-term Catheter / Unknown 02/22/2025 1:01 PM EST 02/22/2025 1:35 PM EST Narrative [facility] - 02/22/2025 1:37 PM EST Therapeutic decision making should be based on absolute values, rather than percentages. Seema Atkinson MD LAB BLOOD ORDERABLES Final Resul t [facility] [address] [place] [address] documented in this encounter Visit Diagnoses Diagnosis Sickle cell disease with crisis and other complication (CMS/HCC)- Primary documented in this encounter Additional Health Concerns Infection Onset Date Last Indicated Resolved Time MRSA Comment:Added from external infection. Source: [facility]. 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 Source: [facility]. 11/26/2023 02/09/2025 MDRO 08/22/2024 08/22/2024 Rhinovirus [...] documented as of this encounter Care Teams Hose Turner Relationship Specialty Start Date End Date Favian Sandy DO 1210 [facility] [address] [place] [address] PCP - General 07/05/24 Navya Man MD [address] [place] [address] Consulting Physician Hematology 09/28/24 Annette Gomes, RN None None Registered Nurse 01/18/25 documented as of this encounter
--- OUTSIDE RECORDS SUMMARY | 2025-02-25 20:46 | XMS_ITS | Encounter Summary ---
Author Organization Healthcare Address [address] [place] [address] Care Team Providers Care Elevator Tender Name Role Phone DuFavian Wilfrido SIU Primary Care Provider [phone] Navya Man MD Unavailable Annette Gomes RN Unavailable Unavailable Encounter Details Date Type Department Care Team (Latest Contact Info) Description 02/11/2025 Travel Social History Tobacco Use Types Packs/Day [...] any time in the past 12 m [facility], were you homeless or living in a fci (including now)? No 02/06/2025 [facility] Utilities Answer Date Recorded In the past 12 months has th e [employer], gas, oil, or water company threatened to [...] drink first t geri in the morning (EYE-OFFSET PRESS OPERATOR) to steady your nerves or to [...] of Assessment Author Precautions Environmental surveillance 02/11/2025 10: 00 PM EST Florencio Metzger RN * Calculated C-SSRS Risk Score (Lifetime/Recent) Answer Date of Assessment Author No Risk Indicated 02/11/2025 7:38 PM EST Florencio Rodriguez RN * Question Answer Date of Assessment Author 1. Wish to be (Past 1 Month) No 02/11/2025 7:38 PM EST Nneka Metzger, NASEEM 2. Non-Specific Active Suicidal Thoughts (Past 1 Month) No 02/11/2025 7:38 PM EST Nneka Metzger RN 6. Suicidal Behavior (Lifetime) No 02/11/2025 7:38 PM EST Nneka Metzger RN documented as of this encounter Mental Status * Question Answer Entry Date Author Precautions Environmental surveillance 02/11/2025 10: 00 PM EST Florencio Metzger RN documented in this encounter Plan of Treatment Upcoming Encounters Date Type Department Care Team (Late st Contact Info) Description 03/15/2025 3:30 PM EST Clinical Support [facility] Hematology/BMT and Cellular Therapy Program [address] [place] [address] [place] [address] 03/15/2025 4:00 PM EST Office Visit [facility] Hematology/BMT and Cellular Therapy Program [address] [place] [address] [place] [phone] Parth Fitzgerald MD 800 [place] [address] 03/28/2025 1:40 PM EST Office Visit [facility] [place] Braydon [address] [place] [address] Duglas Greer MD [address] [place] [address] 07/18/2025 1:40 PM EDT [facility] [address], 2nd [place] [address] Diana Alonzo PA [address] [place] [address] documented as of this encounter Visit Diagnoses Not on filedocumented in this encounter Additional Health Concerns Infection Onset Date Last Indicated Resolved Time MRSA Comment:Added from external infection. Source: [facility]. 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 Source: [facility]. 11/26/2023 02/09/2025 MDRO 08/22/2024 08/22/2024 Rhinovirus 01/17/2025 02/10/2025 Assessment Noted Time PHQ-9 Depression Total Score: 0 09/01/19 12:42 PM EDT A fall risk assessment has been complete d for the patient 09/27/2024 2:07 PM EDT A Body Mass Index follow-up plan has been documented for the patient 02/13/2025 1:18 PM EST documented as of this encounter Care Teams Elevator Tender Relationship Specialty Start Date End Date Favian Sandy DO 1210 [facility] [address] [place] [address] PCP - General 07/05/24 Navya Man MD [address] [place] [phone] Consulting Physician Hematology 09/28/24 Annette Gomes RN None None Registered Nurse 01/18/25 documented as of this encounter
--- OUTSIDE RECORDS SUMMARY | 2025-02-25 20:46 | XMS_ITS | Encounter Summary ---
Author Organization [facility] Address [address] [place] [address] Care Team Providers Care Stabilizing Machine Operator Name Role Phone Favian Sandy DO Primary Care Provider [phone] Navya Man MD Unavailable Encounter Details Date Type Department Care Team (Latest Contact Info) Description 01/02/2025 Travel Social History Tobacco Use Types Packs/Day [...] any time in the past 12 m [facility], were you homeless or living in a mcc (including now)? No 12/19/2024 [facility] Utilities Answer Date Recorded In the past 12 months has th e [employer], gas, oil, or water [employer] threatened to shut off services in your [...] drink first t geri in the morning (EYE-ENGINEERING TEAM SUPERVISOR) to steady your nerves or to [...] Date of Assessment Author Precautions Environmental surveillance 01/02/2025 8:0 0 PM EDT Bro Barriga RN * Calculated C-SSRS Risk Score (Lifetime/Recent) Answer Date of Assessment Author No Risk Indicated 01/02/2025 8:00 PM EDT Bro Barriga RN * Question Answer Date of Assessment Author 1. Wish to be (Past 1 Month) No 025 8:00 PM EDT Bro Barriga RN 2. Non-Specific Active Suici mini Thoughts (Past 1 Month) No 01/02/2025 8:00 PM EDT Tamika Barriga RN 6. Suicidal Behavior (Lifetime) No 8:00 PM EDT Bro Barriga RN documented as of this encounter Mental Status * Question Answer Entry Date Author Precautions Environmental surveillance 01/02/2025 8:0 0 PM EDT Bro Barriga RN documented in this encounter Plan of Treatment Upcoming Encounters Date Type Department Care Team (Late st Contact Info) Description 03/15/2025 3:30 PM EST Clinical Support [facility] Hematology/BMT and Cellular Therapy Program [address] [place] [address] [place] [phone] 03/15/2025 4:00 PM EST Office Visit [facility] Hematology/BMT and Cellular Therapy Program [address] [place] [address] [place] [phone] Parth Fitzgerald MD 800 [place] [address] 03/28/2025 1:40 PM EST Office Visit [facility] [place] Braydon [address] [place] [address] Duglas Greer MD [address] [place] [address] 07/18/2025 1:40 PM EDT Office Visit [facility] [address], 2[address] [place] [address] Diana Alonzo PA [address] [place] [address] documented as of this encounter [...] documented as of this encounter Care Teams Stabilizing Machine Operator Relationship Specialty Start Date End Date Favian Sandy DO [address] [place] [address] PCP - General 07/05/24 Navya Man MD [address] E [facility] 3rd Fl [address] [place] [phone] Consulting Physician Hematology 09/28/24 documented as of this encounter
--- OUTSIDE RECORDS SUMMARY | 2025-02-25 20:46 | XMS_ITS | Encounter Summary ---
Author Organization Healthcare Address [address] [place] [address] Care Team Providers Care Professional Housing Consultant Name Role Phone DuFavian Wilfrido SIU Primary Care Provider [phone] Navya Man MD Unavailable Annette Gomes RN Unavailable Unavailable Encounter Details Date Type Department Care Team (Latest Contact Info) Description 02/18/2025 Travel Social History Tobacco Use Types Packs/Day [...] any time in the past 12 m [facility], were you homeless or living in a group home (including now)? No 02/06/2025 [facility] Utilities Answer Date Recorded In the past 12 months has th e [employer], gas, oil, or water company threatened to [...] drink first t geri in the morning (EYE-SENIOR SERVICE TECHNICIAN) to steady your nerves or to [...] Upcoming Encounters Date Type Department Care Team ([facility] st Contact Info) Description 03/15/2025 3:30 PM EST Clinical Support [facility] CC Hematology/BMT and Cellular Therapy Program [address] [place] [phone] 03/15/2025 4:00 PM EST Office Visit [facility] CC Hematology/BMT and Cellular Therapy Program [address] [place] [phone] Parth Fitzgerald MD 800 [place] [address] 03/28/2025 1:40 PM EST Office Visit [facility] [place] 800 [facility] [place] [phone] Duglas Greer MD 800 [place] [address] 07/18/2025 1:40 PM EDT Office Visit [facility] [address] [place] [phone] Diana Alonzo PA [address] [place] [address] documented as of this encounter Visit Diagnoses Not on filedocumented in this encounter Additional Health Concerns Infection Onset Date Last Indicated Resolved Time MRSA Comment:Added from external infection. Source: [facility]. 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 Source: [facility]. 11/26/2023 02/09/2025 MDRO 08/22/2024 08/22/2024 Rhinovirus [...] documented as of this encounter Care Teams Professional Housing Consultant Relationship Specialty Start Date End Date Favian Sandy DO [address] [place] [address] [place] [address] PCP - General 07/05/24 Navya Man MD [address] [address] Consulting Physician Hematology 09/28/24 Annette Gomes, RN None None Registered Nurse 01/18/25 documented as of this encounter
--- OUTSIDE RECORDS SUMMARY | 2025-02-25 20:46 | XMS_ITS | Encounter Summary ---
Author Organization [facility] Address [address] [place] [address] Care Team Providers Care Agricultural Loan Officer Name Role Phone DuFavian Wilfrido SIU Primary Care Provider [phone] Navya Man MD Unavailable Camilla Guerrier RN Unavailable Unavailable Encounter Details Date Type Department Care Team (Late st Contact Info) Description 01/07/2025 Telephone [facility] [address] [place] [address] Papo Campo, PharmD None None Social History Tobacco Use Types Packs/Day Years Used Date Smoking Tobacco: Former Cigarettes 0.3 3 2 2015 Passive Smoke Exposure: Past Smokeless Tobacco: [...] time in the past 12 m [facility], were you homeless or living in a senior care (including now)? No 01/08/[address] [facility] Utilities Answer Date Recorded In the [...] drink first t geri in the morning (EYE-FABRICATION TECHNICIAN) to steady your nerves or to [...] Telephone Encounter - Papo Campo PharmD - 01/07/2025 11:26 AM EST Pt has been discharged. Can we have Rx for Vosevi sent to [facility], so we can onboard, educate and get medication shipped to patient. Thanks Dc documented in this encounter Plan of Treatment Upcoming Encounters Date Type Department Care Team (Late st Contact Info) Description 03/15/2025 3:30 PM EST Clinical Support [facility] Hematology/BMT and Cellular Therapy Program [address] [place] [phone] 03/15/2025 4:00 PM EST Office Visit [facility] Hematology/BMT and Cellular Therapy Program [address] [place] [phone] Parth Fitzgerald MD 800 [place] [address] 03/28/2025 1:40 PM EST Office Visit [facility] [place] Braydon 800 [facility]. [address] [place] [phone] Duglas Greer MD 800 [place] [address] 07/18/2025 1:40 PM EDT Office Visit [facility] [address] [place] [address] Diana Alonzo, PA [address] [place] [address] documented as of this encounter Visit Diagnoses Not on filedocumented in this encounter Additional Health Concerns Infection Onset Date Last Indicated Resolved Time MRSA Comment:Added from external infection. Source: [facility]. 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 Source: [facility]. 11/26/2023 02/09/2025 MDRO 08/22/2024 08/22/2024 Assessment Noted Time PHQ-9 Depression Total Score: 0 09/01/19 12:42 PM EDT A fall risk assessment has been complete d for the patient 09/27/2024 2:07 PM EDT A Body Mass Index follow-up plan has been documented for the patient 01/05/2025 12:57 PM EDT documented as of this encounter Care Teams Agricultural Loan Officer Relationship Specialty Start Date End Date Favian Sandy DO 1210 [facility] [address] [place] [address] PCP - General 07/05/24 Navya Man MD [address] [place] [phone] Consulting Physician Hematology 09/28/24 Camilla Guerrier, RN VALUE-BASED TRANSFORMATION PROGRAM [place], [place] Telephone Operators Supervisor 01/08/25 01/18/25 documented as of this encounter
--- OUTSIDE RECORDS SUMMARY | 2025-02-25 20:46 | XMS_ITS | Encounter Summary ---
Author Organization Healthcare Address [address] [place] [address] Care Team Providers Care Laboratory Inspector Name Role Phone DuFavian Wilfrido SIU Primary Care Provider [phone] Navya Man MD Unavailable Annette Gomes RN Unavailable Unavailable Encounter Details Date Type Department Care Team (Latest Contact Info) Description 02/09/2025 Travel Social History Tobacco Use Types Packs/Day [...] in a skilled nursing (including now)? No 02/06/2025 [facility] Utilities Answer Date Recorded In the past 12 months has th e [employer], gas, oil, or water company threatened to [...] drink first t geri in the morning (EYE-MARINE CONSULTANT) to steady your nerves or to get [...] Date of Assessment Author Precautions Environmental surveillance 02/09/2025 8:0 0 PM EST Carolina Knowles RN * Calculated C-SSRS Risk Score (Lifetime/Recent) Answer Date of Assessment Author No Risk Indicated 02/09/2025 8:00 PM EST Carolina Knowles RN * Question Answer Date of Assessment Author 1. Wish to be (Past 1 Month) No 025 8:00 PM Carolina Martines RN 2. Non-Specific Active Suici mini Thoughts (Past 1 Month) No 02/09/2025 8:00 PM EST Carolina Knowles RN 6. Suicidal Behavior (Lifetime) No 8:00 PM EST Carolina Knowles RN documented as of this encounter Mental Status * Question Answer Entry Date Author Precautions Environmental surveillance 02/09/2025 8:0 0 PM EST Carolina Knowles RN documented in this encounter Plan of Treatment Upcoming Encounters Date Type Department Care Team ([facility] st Contact Info) Description 03/15/2025 3:30 PM EST Clinical Support [facility] Hematology/BMT and Cellular Therapy Program [address] [place] [address] [place] [address] 03/15/2025 4:00 PM EST Office Visit [facility] Hematology/BMT and Cellular Therapy Program [address] [place] [address] [place] [address] Parth Fitzgerald MD [address] [place] [address] 03/28/2025 1:40 PM EST Office Visit [facility] [place] Braydon [address] [place] [address] Duglas Greer MD [address] [place] [address] 07/18/2025 1:40 PM EDT Office Visit [facility] [address], 2[address] [place] [address] Diana Alonzo, PA [address] [place] [address] documented as of this encounter Visit Diagnoses Not on filedocumented in this encounter Additional Health Concerns Infection Onset Date Last Indicated Resolved Time MRSA Comment:Added from external infection. Source: [facility]. 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 Source: [facility]. 11/26/2023 02/09/2025 MDRO 08/22/2024 08/22/2024 Rhinovirus 01/17/2025 02/10/2025 Assessment Noted Time PHQ-9 Depression Total Score: 0 09/01/19 12:42 PM EDT A fall risk assessment has been complete d for the patient 09/27/2024 2:07 PM EDT A Body Mass Index follow-up plan has been documented for the patient 02/13/2025 1:18 PM EST documented as of this encounter Care Teams Laboratory Inspector Relationship Specialty Start Date End Date Favian Sandy DO 1210 [facility] [address] [place] [address] PCP - General 07/05/24 Navya Man MD [address] [facility] [address] [place] [phone] Consulting Physician Hematology 09/28/24 Annette Gomes, RN None None Registered Nurse 01/18/25 documented as of this encounter
--- OUTSIDE RECORDS SUMMARY | 2025-02-25 20:46 | XMS_ITS | Encounter Summary ---
Author Organization [facility] Address [address] [place] [address] Care Team Providers Care Cell Repairer Name Role Phone DuFavian matamoros Wilfrido DO Primary Care Provider [phone] Navya Man MD Unavailable Annette Gomes RN Unavailable Unavailable Encounter Details Date Type Department Care Team (Late st Contact Info) Description 02/21/2025 Orders Only [facility] Hematology/BMT and Cellular Therapy Program [address] [facility] [place] [address] Seema Atkinson MD 800 [facility] 1st [place] [address] Sickle cell disease with crisis and other [...] any time in the past 12 m [facility], were you homeless or living in a retirement (including now)? No 02/06/2025 [facility] Utilities Answer Date Recorded In the past 12 months has th e [employer], [employer], oil, or water [employer] threatened to shut off services in your [...] drink first t geri in the morning (EYE-SOFTWARE SALES MANAGER) to steady your nerves or to [...] Upcoming Encounters Date Type Department Care Team ([facility] st Contact Info) Description 03/15/2025 3:30 PM EST Clinical Support [facility] Hematology/BMT and Cellular Therapy Program [address] [place] [phone] 03/15/2025 4:00 PM EST Office Visit [facility] Hematology/BMT and Cellular Therapy Program [address] [place] [phone] Parth Fitzgerald MD [address] [place] [address] 03/28/2025 1:40 PM EST Office Visit [facility] [place] [address] [place] [phone] Duglas Greer MD [address] [place] [phone] 07/18/2025 1:40 PM EDT Office Visit [facility] Medicine Specialties [address] [place] [address] Diana Alonzo PA [address] [facility] [address] [place] [address] documented as of this encounter Visit Diagnoses Diagnosis Sickle cell disease with crisis and other complication (CMS/HCC)- Primary documented in this encounter Additional Health Concerns Infection Onset Date Last Indicated Resolved Time MRSA Comment:Added from external infection. Source: [facility]. 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 Source: [facility]. 11/26/2023 02/09/2025 MDRO 08/22/2024 08/22/2024 Rhinovirus 01/17/2025 [...] documented as of this encounter Care Teams Cell Repairer Relationship Specialty Start Date End Date Favian Sandy DO 1210 [facility] [address] [place] [address] PCP - General 07/05/24 Navya Man MD [address] [place] [address] Consulting Physician Hematology 09/28/24 Annette Gomes, RN None None Registered Nurse 01/18/25 documented as of this encounter
--- OUTSIDE RECORDS SUMMARY | 2025-02-25 20:46 | XMS_ITS | Encounter Summary ---
Author Organization [facility] Address [address] [place] [address] Care Team Providers Care Vacuum Cleaner Assembler Name Role Phone DuFavian matamoros Wilfrido SIU Primary Care Provider [phone] Navya Man MD Unavailable Annette Gomes RN Unavailable Unavailable Encounter Details Date Type Department Care Team (Late st Contact Info) Description 02/06/2025 Patient Outreach [facility] [address] [place] [address] Annette Gomes, RN None None Social History Tobacco Use Types Packs/Day Years Used Date Smoking Tobacco: Former Cigarettes 0.3 3 2015 Passive Smoke Exposure: Past Smokeless Tobacco: [...] any time in the past 12 m [facility], were you homeless or living in a longterm (including now)? No 02/06/2025 [facility] Utilities Answer Date Recorded In the [...] drink first t geri in the morning (EYE-DEVELOPMENT TECHNICIAN) to steady your nerves or to [...] of Assessment Author Precautions Environmental surveillance 02/06/2025 9:0 0 AM Channing Guevara RN * Calculated C-SSRS Risk Score (Lifetime/Recent) Answer Date of Assessment Author No Risk Indicated 02/06/2025 9:00 AM Channing Guevara RN * Question Answer Date of Assessment Author 1. Wish to be (Past 1 Month) No 025 9:00 AM Channing Guevara RN 2. Non-Specific Active Suici mini Thoughts (Past 1 Month) No 02/06/2025 9:00 AM Silas Guevara RN 6. Suicidal Behavior (Lifetime) No 9:00 AM Channing Guevara RN documented as of this encounter Mental Status * Question Answer Entry Date Author Precautions Environmental surveillance 02/06/2025 9:0 0 AM Channing Guevara RN documented in this encounter Miscellaneous Notes * Progress Notes - Annette Gomes RN - 02/06/2025 11:53 AM EST HRCM Inpatient Review Reason for Note: Inpatient Admission Review HRCM nurse will coordinate with VALERIE/ADELE JOHNSON during admission and continue to follow the patient after discharge. HRCM Nurse: Annette Gomes RN 02/06/2025 11:54 AM documented in this encounter Plan of Treatment Upcoming Encounters Date Type Department Care Team (Late st Contact Info) Description 03/15/2025 3:30 PM EST Clinical Support [facility] Hematology/BMT and Cellular Therapy Program 750 [facility] [place] [phone] 03/15/2025 4:00 PM EST Office Visit [facility] Hematology/BMT and Cellular Therapy Program 750 [facility], [address] [place] [phone] Parth Fitzgerald MD 800 [place], [place] [phone] 03/28/2025 1:40 PM EST Office Visit [facility] Beatrice Conway [address] [facility] [place] [phone] Duglas Greer MD 800 [place] [address] 07/18/2025 1:40 PM EDT Office Visit [facility] [address], [address] [place] [phone] Diana Alonzo, JAMAL [address] [place] [phone] documented as of this encounter Visit Diagnoses [...] documented as of this encounter Care Teams Vacuum Cleaner Assembler Relationship Specialty Start Date End Date Favian Sandy DO [address] [place] [facility] [address] [place] [address] PCP - General 07/05/24 Navya Man MD [address] [phone] Consulting Physician Hematology 09/28/24 Annette Gomes, RN None None Registered Nurse 01/18/25 documented as of this encounter
[2025-02-25 20:47] VITALS: PULSE 78
[2025-02-25 20:47] LABS: Lactate Venous 2.4 mmol/L (0.4-2.0); VBG HCO3 21.3 mmol/L (23-30); VBG PCO2 38.3 mmol/L (35-51); VBG PH 7.36 mmol/L (7.31-7.41); VBG PO2 49.9 mmol/L (28-40)
--- OUTSIDE RECORDS SUMMARY | 2025-02-25 20:47 | XMS_ITS | Encounter Summary ---
Author Organization [facility] Address [address] [place] [address] Care Team Providers Care Director Software Quality Assurance Name Role Phone DuFavian matamoros Wilfrido SIU Primary Care Provider [phone] Navya Man MD Unavailable Camilla Guerrier RN Unavailable Unavailable Annette Gomes RN Unavailable Unavailable Encounter Details Date Type Department Care Team (Late st Contact Info) Description 01/18/2025 Referral Triage [facility] [address] [facility], [address] [place] [address] Annette Gomes, NASEEM None None Social History Tobacco Use Types [...] were you homeless or living in a assisted (including now)? No 01/18/2025 [facility] Utilities Answer Date Recorded In the past 12 months has th e electric, gas, oil, or water company threatened to shut off services in your home? No 01/18/2025 CAGE ASSESSMENT Answer Date Recorded Cage unable to access Not on file 01/17/2025 Cage max number of drinks Not on file 11/13/ 2025 Cage Beverages a week Not on file 01/17/2025 Have you ever felt you should CUT down on your d rinking? 0 01/17/2025 Have you been ANNOYED by people criticizing your drinking? 0 01/17/2025 Have you felt GUILTY about your drinking? 0 01/17/2025 Have you had a drink first t geri in the morning (EYE-PIEROGI MAKER) to steady your nerves or to [...] Progress Notes - Annette Gomes RN - 01/18/2025 1:55 PM EST HRCM Inpatient Review Reason for Note: Inpatient Admission Review HRCM nurse will coordinate with LINK/ SW during admission and continue to follow the patient after discharge. HRCM Nurse: Annette Gomes RN 01/18/2025 1:57 PM documented in this encounter Plan of Treatment Upcoming Encounters Date Type Department Care Team ([facility] st Contact Info) Description 03/15/2025 3:30 PM EST Clinical Support [facility] Hematology/BMT and Cellular Therapy Program [address] [place] [address] [place] [phone] 03/15/2025 4:00 PM EST Office Visit [facility] Hematology/BMT and Cellular Therapy Program [address] [place] [address] [place] [phone] Parth Fitzgerald MD 800 [place] [address] 03/28/2025 1:40 PM EST Office Visit [facility] [place] 800 [facility] [place] [address] Duglas Greer MD [address] [place] [address], [place] [address] 07/18/2025 1:40 PM EDT Office Visit [facility] [address], [address] [place] [address] Diana Alonzo, JAMAL [address] [place] [address] documented as of this encounter Visit Diagnoses Not on filedocumented in this encounter Additional Health Concerns Infection Onset Date Last Indicated Resolved Time MRSA Comment:Added from external infection. Source: [facility]. 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 Source: [facility]. 11/26/2023 02/09/2025 MDRO 08/22/2024 08/22/2024 C. difficile Rule-Out Comment:No ongoing diarrhea 01/17/2025 01/17/2025 01/20/2025 3 :04 PM EST Gastrointestinal Rule-Out Comment:No ongoing diarrhea 01/17/2025 01/17/2025 01/20/2025 3 :04 PM EST Rhinovirus 01/17/2025 02/10/2025 Assessment Noted Time PHQ-9 Depression Total Score: 0 09/01/19 25 12:42 PM EDT A fall risk assessment has been complete d for the patient 09/27/2024 2:07 PM EDT A Body Mass Index follow-up plan has been documented for the patient 01/30/2025 5:06 PM EST documented as of this encounter Care Teams Director Software Quality Assurance Relationship Specialty Start Date End Date Favian Sandy DO [address] [place] [address] PCP - General 07/05/24 Navya Man MD [address] [facility] [address] [place] [address] Consulting Physician Hematology 09/28/24 Camilla Guerrier, RN VALUE-BASED TRANSFORMATION PROGRAM [place] Currency Examiner 01/08/25 01/18/25 Annette Gomes, RN None None Registered Nurse 01/18/25 documented as of this encounter
--- OUTSIDE RECORDS SUMMARY | 2025-02-25 20:47 | XMS_ITS | Encounter Summary ---
Author Organization [facility] Address [address] [place] [address] Care Team Providers Care Flux Tube Attendant Name Role Phone Favian Sandy Primary Care Provider [phone] Navya Man MD Unavailable Camilla Guerrier RN Unavailable Unavailable Reason for Visit * Reason Comments TCM Encounter Details Date Type Department Care Team (Late st Contact Info) Description 01/08/2025 Patient Outreach [facility] [address] [place] [address] Camilla Guerrier, NASEEM VALUE-BASED TRANSFORMATION PROGRAM [place] TCM Social History Tobacco Use Types Packs/Day [...] any time in the past 12 m [facility], were you homeless or living in a halfway (including now)? No 01/08/2025 [facility] Utilities Answer Date Recorded In [...] drink first t geri in the morning (EYE-AUTOMATIC HEMMER) to steady your nerves or to get rid of a hangover? 0 10/20/2024 CAGE Questionnaire Score 0 025 Sex and Gender Information Value Date Recorded Sex Assigned at Male 03/16/2024 2:12 PM EST Legal Sex Male 7:40 PM EDT Gender Identity Not on file Sexual Orientation Not on file documented as of this encounter Miscellaneous Notes * Progress Notes - Camilla Guerrier RN - 01/08/2025 2:10 PM EST Admit Date: 12/17/2024 Discharge Date: 01/05/2025 Hospital Service: Hospital Medicine Discharge Diagnosis: Sickle cell pain crisis 01/08/2025 TCM call # 1 Patient Reached: yes Outcome: spoke with patient Action: Reports not doing well. Can't take abx. Having diarrhea. Unable to eat. Stopped taking abx on Tuesday01/06/25. Denies Fevers or chills. Advised pt to call ID clinic. Provided phone number. Pt says he will call Medication changes: levoFLOXacin 750 MG tablet x 7 days--- last dose on Tuesday linezolid 600 MG tablet x [facility] appointment: Non [facility] PCP Favian Sandy D.O. recommend PCP in 1-2 weeks Items to address at [facility]: Pending labs: Blood cultures Discharge instructions: Follow up with infectious disease on 01/14/2025 11:30 AM Follow up with interventional radiology in 3-4 weeks for TDC placement outpatient, referral placed Follow up with hematology on 01/25/2025 3:30 PM Follow up with hepatology for hepatitis C treatment, referral placed Start taking Levaquin 750 mg daily for 7 total days of therapy for ESBL Klebsiella Start taking Zyvox 600 mg two times daily for 4 weeks total, will prescribe 2 weeks on discharge with follow up with infectious disease and lab monitoring before next 2 weeks are prescribed Future Appointments Date Time Provider Department Center 01/14/2025 11:30 AM Bravo Vyas MD [id number] [place] 01/24/2025 11:00 AM IR-[facility] 01/25/2025 3:30 PM [facility] RN [place] 01/25/2025 4:00 PM Parth Fitzgerald MD [facility] [place] documented in this encounter Plan of Treatment Upcoming Encounters Date Type Department Care Team (Late st Contact Info) Description 03/15/2025 3:30 PM EST Clinical Support [facility] Hematology/BMT and Cellular Therapy Program [address] [place] [phone] 03/15/2025 4:00 PM EST Office Visit [facility] Hematology/BMT and Cellular Therapy Program [address] [place] [phone] Parth Fitzgerald MD 800 [place] [address] 03/28/2025 1:40 PM EST Office Visit [facility] [place] 800 [facility]. [address] [place] [phone] Duglas Greer MD 800 [place] [address] 07/18/2025 1:40 PM EDT Office Visit [facility] Medicine [facility] [address] [place] [address] Diana Alonzo PA [address] [place] [address] documented as of this encounter Visit Diagnoses Not on filedocumented in this encounter Additional Health Concerns Infection Onset Date Last Indicated Resolved Time MRSA Comment:Added from external infection. Source: [facility]. 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 Source: [facility]. 11/26/2023 02/09/2025 MDRO 08/22/2024 08/22/2024 Assessment Noted Time PHQ-9 Depression Total Score: 0 09/01/19 12:42 PM EDT A fall risk assessment has been complete d for the patient 09/27/2024 2:07 PM EDT A Body Mass Index follow-up plan has been documented for the patient 01/05/2025 12:57 PM EDT documented as of this encounter Care Teams Flux Tube Attendant Relationship Specialty Start Date End Date Favian Sandy DO [facility] [address] [place] [address] PCP - General 07/05/24 Navya Man MD [address] [phone] Consulting Physician Hematology 09/28/24 Camilla Guerrier, RN VALUE-BASED TRANSFORMATION PROGRAM [place] Stereoptic Projection Topographer 01/08/25 01/18/25 documented as of this encounter
--- OUTSIDE RECORDS SUMMARY | 2025-02-25 20:47 | XMS_ITS | Encounter Summary ---
Author Organization [facility] Address [address] [place] [address] Care Team Providers Care Transitions Manager Name Role Phone DuFavian Wilfrido SIU Primary Care Provider Navya Man MD Unavailable Camilla Guerrier RN Unavailable Unavailable Encounter Details Date Type Department Care Team (Late st Contact Info) Description 01/16/2025 Telephone [facility] Interventional Radiology [address] [place] [address] Joann Posey, RN None None Social History Tobacco Use [...] time in the past 12 m [facility], were you homeless or living in a senior care (including now)? No 01/08/2025 [facility] Utilities Answer Date Recorded In the past 12 months has th e [employer], gas, oil, or water company threatened to [...] drink first t geri in the morning (EYE-RESIDENTIAL ELECTRICIAN) to steady your nerves or to get rid of a hangover? 0 01/17/2025 CAGE Questionnaire Score 0 025 Sex and Gender Information Value Date Recorded Sex Assigned at Male 03/16/2024 2:12 PM EST Legal Sex Male 7:40 PM EDT Gender Identity Not on file Sexual Orientation Not on file documented as of this encounter Miscellaneous Notes * Nursing Note - Joann Posey RN - 01/16/2025 8:24 AM EST Spoke to patient regarding 01/24/25 central venous catheter placement. Instructions given to patient: -NPO at midnight the night before the appointment -commercial collections driver required before and after appointment - arrival time: 9:30 -hold eliquis 48 hours before procedure -Patient confirmed that he sis aware of the location and directions to the appointment. Patient instructed to call back with any questions. documented in this encounter Plan of Treatment Upcoming Encounters Date Type Department Care Team ([facility] st Contact Info) Description 03/15/2025 3:30 PM EST Clinical Support [facility] Hematology/BMT and Cellular Therapy Program [address] [place] [address] [place] [address] 03/15/2025 4:00 PM EST Office Visit [facility] Hematology/BMT and Cellular Therapy Program [address] [place] [phone] Parth Fitzgerald MD 800 [place] [address] 03/28/2025 1:40 PM EST Office Visit [facility] [place] [address] [facility]. [address] [place] [phone] Duglas Greer MD [address] [place] [address] 07/18/2025 1:40 PM EDT Office Visit [facility] [address], [address] [place] [address] Diana Alonzo PA [address] [place] [address] documented as of this encounter Visit Diagnoses Not on filedocumented in this encounter Additional Health Concerns Infection Onset Date Last Indicated Resolved Time MRSA Comment:Added from external infection. Source: [facility]. 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 Source: [facility]. 11/26/2023 02/09/2025 MDRO 08/22/2024 08/22/2024 Assessment Noted Time PHQ-9 Depression Total Score: 0 09/01/19 12:42 PM EDT A fall risk assessment has been complete d for the patient 09/27/2024 2:07 PM EDT A Body Mass Index follow-up plan has been documented for the patient 01/05/2025 12:57 PM EDT documented as of this encounter Care Teams Transitions Manager Relationship Specialty Start Date End Date Favian Sandy DO [address] [place] [address] PCP - General 07/05/24 Navya Man MD [address] [facility] [address] [place] [address] Consulting Physician Hematology 09/28/24 Camilla Guerrier, RN VALUE-BASED TRANSFORMATION PROGRAM [place] Shaker Washer 01/08/25 01/18/25 documented as of this encounter
--- OUTSIDE RECORDS SUMMARY | 2025-02-25 20:47 | XMS_ITS | Encounter Summary ---
Author Organization [facility] Address [address] [place] [address] Care Team Providers Care Metal Machine Operator Name Role Phone DuFavian matamoros Wilfrido SIU Primary Care Provider [phone] Navya Man MD Unavailable Camilla Guerrier RN Unavailable Unavailable Annette Gomes RN Unavailable Unavailable Reason for Referral * Consultation (Routine) - Authorized Specialty Diagnoses / Procedures Referred By Contac t Referred To Contact Diagnoses Encounter for support and coordination of transition of care POPULATION [address] [address] Phone: tel: [address] [address] Phone: tel: Referral ID Status Reason Start Date Expiration Date Visits Requested Visits Authorized [id number] Authorized Other Co-Managemen t of Problem 07/20/2026 1 1 Scheduling Instructions Previous LINK patient Encounter Details Date Type Department Care Team (Late st Contact Info) Description 01/18/2025 Patient Outreach POPULATION [address] [address] Ileana Terry Social History Tobacco Use Types Packs/Day Years [...] time in the past 12 m [facility], were you homeless or living in a usp (including now)? No 01/18/2025 [facility] Utilities Answer Date Recorded In the past 12 months has [employer] logo, gas, oil, or water [employer] threatened to shut off services in your [...] drink first t geri in the morning (EYE-JACK TAMP OPERATOR) to steady your nerves or to get rid of a hangover? 0 01/17/2025 CAGE Questionnaire Score 0 025 Sex and Gender Information Value Date Recorded Sex Assigned at Male 03/16/2024 2:12 PM EST Legal Sex Male 7:40 PM EDT Gender Identity Not on file Sexual Orientation Not on file documented as of this encounter Miscellaneous Notes * Progress Notes - Ileana Terry - 01/18/2025 1:23 PM EST Pop Health Enrollment 01/18/2025 Pop Health Program: [] LINK [x] HRCM Primary Facility: [] [facility] [x] Henrry Saxena [x] Spoke with care team [x] Spoke with patient/caregiver [] [facility] PCP [x] Outside PCP - [facility] [x] Confirmed/Updated Patient's Contact Information, Voicemail, Preferred Method SDOH Needs/Assessment [] Transportation [] Food [] Housing [] Utility [x] Medication [x] Health Education [] Insurance [] Legal [] Unable to assess Discussion Summary: Population Health SW met with pt bedside for introductions and review of PopHealth programs. Pt verified contact info and PCP; verbalized understanding of benefits of [facility] appt. Pt reports he is not satisfied with his care/treatment during current hospitalization and states he and his mom have spoken with 's office of Patient Experience and he is waiting on a resolution vs leaving AMA. Pop[facility]SW provided contact card for f/u questions. Discharge Disposition [] Sub-Acute Rehab [x] Home [] Other: Ileana Terry, TIPPLE BOSS, INSURANCE FOLLOW UP SPECIALIST Population Health Navigator [email or web address] documented in this encounter Plan of Treatment Upcoming Encounters Date Type Department Care Team ([facility] st Contact Info) Description 03/15/2025 3:30 PM EST Clinical Support [facility] Hematology/BMT and Cellular Therapy Program [address] [place] [phone] 03/15/2025 4:00 PM EST Office Visit [facility] Hematology/BMT and Cellular Therapy Program [address] [place] [phone] Parth Fitzgerald MD [address] [place], [place] [phone] 03/28/2025 1:40 PM EST Office Visit [facility] [place] [address] [facility]. [address] [place] [phone] Duglas Greer MD [address] [place] [address] 07/18/2025 1:40 PM EDT Office Visit [facility] [address] [place] [address] Diana Alonzo PA [address] [place] [address] Scheduled Referrals Name Type Priority Associated Diagnoses Orde r Schedule Ambulatory referral to [facility] Outpatient Referral Routine Encounter for support and coordination of transition of care 1 Occurrences starting 01/18/2025 until 07/22/2026 documented as of this encounter Visit Diagnoses Diagnosis Encounter for support and coordination of transition of care- Primary documented in this encounter Additional Health Concerns Infection Onset Date Last Indicated Resolved Time MRSA Comment:Added from external infection. Source: [facility]. 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 Source: [facility]. 11/26/2023 02/09/2025 MDRO 08/22/2024 08/22/2024 C. [...] documented as of this encounter Care Teams Metal Machine Operator Relationship Specialty Start Date End Date Favian Sandy DO [facility] [address] [place] [address] PCP - General 07/05/24 Navya Man MD [address] [address] Consulting Physician Hematology 09/28/24 Camilla Guerrier, RN VALUE-BASED TRANSFORMATION PROGRAM [place], [place] Research Administrator 01/08/25 01/18/25 Annette Gomes RN None None Registered Nurse 01/18/25 documented as of this encounter
--- OUTSIDE RECORDS SUMMARY | 2025-02-25 20:47 | XMS_ITS | Encounter Summary ---
Author Organization Healthcare Address [address] [place] [address] Care Team Providers Care Etcher Machine Name Role Phone DuFavian Wilfrido SIU Primary Care Provider [phone] Navya Man MD Unavailable Annette Gomes RN Unavailable Unavailable Encounter Details Date Type Department Care Team (Latest Contact Info) Description 01/28/2025 Travel Social History Tobacco Use Types Packs/Day [...] any time in the past 12 m [facility], were you homeless or living in a [place] health [place] facility (including now)? No 01/18/2025 [facility] Utilities Answer Date Recorded In the past 12 months has e [employer], gas, oil, or water company threatened to [...] drink first t geri in the morning (EYE-PARAOPTOMETRIC) to steady your nerves or to get [...] Answer Date of Assessment Author Precautions None 01/28/2025 8:00 PM EST Cat Livingston RN * Calculated C-SSRS Risk Score (Lifetime/Recent) Answer Date of Assessment Author No Risk Indicated 01/28/2025 8:00 PM EST Cat Vega RN * Question Answer Date of Assessment Author 1. Wish to be (Past 1 Month) No 025 8:00 PM EST Cat Vega, NASEEM 2. Non-Specific Active Suici mini Thoughts (Past 1 Month) No 01/28/2025 8:00 PM EST Denise Vega, NASEEM 6. Suicidal Behavior (Lifetime) No 8:00 PM EST Cat Vega RN documented as of this encounter Mental Status * Question Answer Entry Date Author Precautions None 01/28/2025 8:00 PM EST Cat Livingston RN documented in this encounter Plan of Treatment Upcoming Encounters Date Type Department Care Team (Late st Contact Info) Description 03/15/2025 3:30 PM EST Clinical Support [facility] Hematology/BMT and Cellular Therapy Program [address] [place] [address] [place] [phone] 03/15/2025 4:00 PM EST Office Visit [facility] CC Hematology/BMT and Cellular Therapy Program [address] [place] [address] [place] [phone] Parth Fitzgerald MD [address] [place] [address] 03/28/2025 1:40 PM EST Office Visit [facility] [place] [address] [place] [address] Duglas Greer MD [address] [place] [address] 07/18/2025 1:40 PM EDT Office Visit [place] [facility] [address] [place] [address] Diana Alonzo PA [address] [place] [address] documented as of this encounter Visit Diagnoses Not on filedocumented in this encounter Additional Health Concerns Infection Onset Date Last Indicated Resolved Time MRSA Comment:Added from external infection. Source: [facility]. 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 Source: [facility]. 11/26/2023 02/09/2025 MDRO 08/22/2024 08/22/2024 Rhinovirus 01/17/2025 02/10/2025 C. difficile Rule-Out 01/23/2025 01/23/20252024 9:53 PM EST Assessment Noted Time PHQ-9 Depression Total Score: 0 09/01/19 25 12:42 PM EDT A fall risk assessment has been complete d for the patient 09/27/2024 2:07 PM EDT A Body Mass Index follow-up plan has been documented for the patient 01/30/2025 5:06 PM EST documented as of this encounter Care Teams Etcher Machine Relationship Specialty Start Date End Date Favian Sandy DO [address] [place] [address] PCP - General 07/05/24 Navya Man MD [address] [place] [address] Consulting Physician Hematology 09/28/24 Annette Gomes, RN None None Registered Nurse 01/18/25 documented as of this encounter
--- OUTSIDE RECORDS SUMMARY | 2025-02-25 20:47 | XMS_ITS | Encounter Summary ---
Author Organization [facility] Address [address] [place] [address] Care Team Providers Care Surfboard Maker Name Role Phone DuFavian Wilfrido SIU Primary Care Provider [phone] Navya Man MD Unavailable Annette Gomes RN Unavailable Unavailable Encounter Details Date Type Department Care Team (Latest Contact Info) Description 02/22/2025 Travel Social History Tobacco Use Types Packs/Day [...] in the past 12 m [facility], were you homeless or living in a fci (including now)? No 02/06/2025 [facility] Utilities Answer Date Recorded In the past 12 months has th e [employer], gas, oil, or water company threatened to [...] drink first t geri in the morning (EYE-MILIEU THERAPIST) to steady your nerves or to get [...] Upcoming Encounters Date Type Department Care Team ([facility] st Contact Info) Description 03/15/2025 3:30 PM EST Clinical Support [facility] CC Hematology/BMT and Cellular Therapy Program [address] [place] [phone] 03/15/2025 4:00 PM EST Office Visit [facility] CC Hematology/BMT and Cellular Therapy Program [address] [place] [phone] Parth Fitzgerald MD [address] [place] [address] 03/28/2025 1:40 PM EST Office Visit [facility] [place] [address] [facility]. [address] [place] [phone] Duglas Greer MD [address] [place] [address] 07/18/2025 1:40 PM EDT Office Visit [facility] [address] [place] [phone] Diana Alonzo PA [address] [place] [address] documented as of this encounter Visit Diagnoses Not on filedocumented in this encounter Additional Health Concerns Infection Onset Date Last Indicated Resolved Time MRSA Comment:Added from external infection. Source: [facility]. 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 Source: [facility]. 11/26/2023 02/09/2025 MDRO 08/22/2024 [...] documented as of this encounter Care Teams Surfboard Maker Relationship Specialty Start Date End Date Favian Sandy DO [address] [place] [address] [place] [address] PCP - General 07/05/24 Navya Man MD [address] [phone] Consulting Physician Hematology 09/28/24 Annette Gomes, RN None None Registered Nurse 01/18/25 documented as of this encounter
--- OUTSIDE RECORDS SUMMARY | 2025-02-25 20:47 | XMS_ITS | Encounter Summary ---
Author Organization [facility] Address [address] [place] [address] Care Team Providers Care Pharmacy Consultant Name Role Phone DuFavian Wilfrido SIU Primary Care Provider [phone] Navya aMn MD Unavailable Annette Gomes RN Unavailable Unavailable Encounter Details Date Type Department Care Team (Latest Contact Info) Description 01/23/2025 Travel Social History Tobacco Use Types Packs/Day [...] any time in the past 12 m [facility], were you homeless or living in a senior care (including now)? No 01/18/2025 [facility] Utilities Answer Date Recorded In the past 12 months has e [employer], gas, oil, or water company threatened to [...] drink first t geri in the morning (EYE-ASSOCIATE PROFESSOR OF LIBRARY SCIENCE) to steady your nerves or to get [...] Answer Date of Assessment Author Precautions Environmental surveillance;Aspiration;Fall risk 01/23/2025 8:00 PM Lucero Benson RN * Calculated C-SSRS Risk Score (Lifetime/Recent) Answer Date of Assessment Author No Risk Indicated 01/23/2025 8:00 PM Lucero Benson RN * Question Answer Date of Assessment Author 1. Wish to be (Past 1 Month) No 025 8:00 PM Lucero Benosn, NASEEM 2. Non-Specific Active Suici mini Thoughts (Past 1 Month) No 01/23/2025 8:00 PM Lucero Benson, NASEEM 6. Suicidal Behavior (Lifetime) No 8:00 PM Lucero Benson, NASEEM documented as of this encounter Mental Status * Question Answer Entry Date Author Precautions Environmental surveillance;Aspiration;Fall risk 01/23/2025 8:00 PM Lucero Benson RN documented in this encounter Plan of Treatment Upcoming Encounters Date Type Department Care Team (Late st Contact Info) Description 03/15/2025 3:30 PM EST Clinical Support [facility] Hematology/BMT and Cellular Therapy Program [address] [place] [address] 03/15/2025 4:00 PM EST Office Visit [facility] Hematology/BMT and Cellular Therapy Program [address] [place] [phone] Parth Fitzgerald MD [address] [place] [address] 03/28/2025 1:40 PM EST Office Visit [facility] [place] [facility] [address] [place] [address] Duglas Greer MD [address] [place] [address] 07/18/2025 1:40 PM EDT Office Visit [place] [facility] [address], [address] [place] [address] Diana Alonzo PA [address] [place] [address] documented as of this encounter Visit Diagnoses Not on filedocumented in this encounter Additional Health Concerns Infection Onset Date Last Indicated Resolved Time MRSA Comment:Added from external infection. Source: [facility]. 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 Source: [facility]. 11/26/2023 02/09/2025 MDRO 08/22/2024 08/22/2024 Rhinovirus 01/17/2025 [...] documented as of this encounter Care Teams Pharmacy Consultant Relationship Specialty Start Date End Date Favian Sandy DO [address] [place] [address] [place] [address] PCP - General 07/05/24 Navya Man MD [address] [place] [address] Consulting Physician Hematology 09/28/24 Annette Gomes, RN None None Registered Nurse 01/18/25 documented as of this encounter
--- OUTSIDE RECORDS SUMMARY | 2025-02-25 20:47 | XMS_ITS | Encounter Summary ---
Author Organization Healthcare Address [address] [place] [address] Care Team Providers Care Retail Seasonal Specialist Name Role Phone DuFavian Wilfrido SIU Primary Care Provider [phone] Navya Man MD Unavailable Annette Gomes RN Unavailable Unavailable Encounter Details Date Type Department Care Team (Latest Contact Info) Description 01/21/2025 Travel Social History Tobacco Use Types Packs/Day [...] any time in the past 12 m [facility], were you homeless or living in a residential (including now)? No 01/18/2025 [facility] Utilities Answer Date Recorded In the past 12 months has e [employer], gas, oil, or water company threatened to [...] drink first t geri in the morning (EYE-GRAPHITE PAN DRIER TENDER) to steady your nerves or to [...] Date of Assessment Author Precautions Environmental surveillance 01/21/2025 8:0 0 PM EST Shailesh Wilks, RN * Calculated C-SSRS Risk Score (Lifetime/Recent) Answer Date of Assessment Author No Risk Indicated 01/21/2025 8:00 PM Shailesh Candelario, RN * Question Answer Date of Assessment Author 1. Wish to be (Past 1 Month) No 025 8:00 PM Shailesh Candelario, RN 2. Non-Specific Active Suici mini Thoughts (Past 1 Month) No 01/21/2025 8:00 PM Shailesh Candelario, RN 6. Suicidal Behavior (Lifetime) No 8:00 PM Shailesh Candelario, RN documented as of this encounter Mental Status * Question Answer Entry Date Author Precautions Environmental surveillance 01/21/2025 8:0 0 PM Shailesh Candelario, RN documented in this encounter Plan of Treatment Upcoming Encounters Date Type Department Care Team (Late st Contact Info) Description 03/15/2025 3:30 PM EST Clinical Support [facility] Hematology/BMT and Cellular Therapy Program [address] [place] [address] 03/15/2025 4:00 PM EST Office Visit [facility] H[facility]ology/BMT and Cellular Therapy Program [address] [place] [address] [place] [phone] Parth Fitzgerald MD [address] [place] [address] 03/28/2025 1:40 PM EST Office Visit [facility] [place] [address] [place] [address] Duglas Greer MD [address] [place] [address] 07/18/2025 1:40 PM EDT Office Visit [place] [facility] [address], [address] [place] [address] Diana Alonzo PA [address] [place] [address] documented as of this encounter Visit Diagnoses Not on filedocumented in this encounter Additional Health Concerns Infection Onset Date Last Indicated Resolved Time MRSA Comment:Added from external infection. Source: [facility]. 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 Source: [facility]. 11/26/2023 02/09/2025 MDRO 08/22/2024 08/22/2024 Rhinovirus 01/17/2025 02/10/2025 Assessment Noted Time PHQ-9 Depression Total Score: 0 09/01/19 12:42 PM EDT A fall risk assessment has been complete d for the patient 09/27/2024 2:07 PM EDT A Body Mass Index follow-up plan has been documented for the patient 01/30/2025 5:06 PM EST documented as of this encounter Care Teams Retail Seasonal Specialist Relationship Specialty Start Date End Date Favian Sandy DO [address] [facility] [address] [place] [address] PCP - General 07/05/24 Navya Man MD [address] [place] [phone] Consulting Physician Hematology 09/28/24 Annette Gomes RN None None Registered Nurse 01/18/25 documented as of this encounter
--- OUTSIDE RECORDS SUMMARY | 2025-02-25 20:47 | XMS_ITS | Encounter Summary ---
Author Organization Healthcare Address [address] [place] [address] Care Team Providers Care Munitions Factory Worker Name Role Phone DuFavian Wilfrido SIU Primary Care Provider [phone] Navya Man MD Unavailable Camilla Guerrier RN Unavailable Unavailable Encounter Details Date Type Department Care Team (Late st Contact Info) Description 01/10/2025 Orders Only [facility] Medicine Specialties [address], [address] [place] [address] Diana Alonzo PA [address] [place] [address] Chronic hepatitis C without hepatic coma Social [...] time in the past [address] [facility], were you homeless or living in a intermediate (including now)? No 01/08/2025 [facility] Utilities Answer Date Recorded In the [...] drink first t geri in the morning (EYE-BATT MACHINE OPERATOR) to steady your nerves or [...] Upcoming Encounters Date Type Department Care Team ([facility] Contact Info) Description 03/15/2025 3:30 PM EST Clinical Support [facility] Hematology/BMT and Cellular Therapy Program [address] [place] [phone] 03/15/2025 4:00 PM EST Office Visit [facility] Hematology/BMT and Cellular Therapy Program [address] [place] [phone] Parth Fitzgerald MD [address] [place] [address] 03/28/2025 1:40 PM EST Office Visit [facility] [place] [address] [place] [phone] Duglas Greer MD [address] [place] [phone] 07/18/2025 1:40 PM EDT Office Visit [place] [facility] [address] [place] [phone] Diana Alonzo, PA [address] [place] [address] documented as of this encounter Visit Diagnoses Diagnosis Chronic hepatitis C without hepatic coma documented in this encounter Additional Health Concerns Infection Onset Date Last Indicated Resolved Time MRSA Comment:Added from external infection. Source: [facility]. 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 Source: [facility]. 11/26/2023 02/09/2025 MDRO 08/22/2024 08/22/2024 Assessment Noted Time PHQ-9 Depression Total Score: 0 09/01/19 12:42 PM EDT A fall risk assessment has been complete d for the patient 09/27/2024 2:07 PM EDT A Body Mass Index follow-up plan has been documented for the patient 01/05/2025 12:57 PM EDT documented as of this encounter Care Teams Munitions Factory Worker Relationship Specialty Start Date End Date Favian Sandy DO [address] [facility] [address] [place] [address] PCP - General 07/05/24 Navya Man MD [address] [place] [address] Consulting Physician Hematology 09/28/24 Camilla Guerrier, RN VALUE-BASED TRANSFORMATION PROGRAM [place] Belly Packer 01/08/25 01/18/25 documented as of this encounter
--- OUTSIDE RECORDS SUMMARY | 2025-02-25 20:47 | XMS_ITS | Encounter Summary ---
Author Organization Healthcare Address [address] [place] [address] Care Team Providers Care Ranch Cook Name Role Phone DuFavian Wilfrido SIU Primary Care Provider [phone] Navya Man MD Unavailable Annette Gomes RN Unavailable Unavailable Encounter Details Date Type Department Care Team (Latest Contact Info) Description 01/22/2025 Travel Social History Tobacco Use Types Packs/Day [...] any time in the past 12 m [facility], were you homeless or living in a [place] health care facility (including now)? No 01/18/2025 [facility] Utilities Answer Date Recorded In the past 12 months has e [employer], gas, oil, or water company threatened to [...] drink first t geri in the morning (EYE-THEATER PROJECTIONIST) to steady your nerves or to get [...] Answer Date of Assessment Author Precautions Environmental survei llance;Fall risk 01/22/2025 8:00 PM Lucero Benson, NASEEM * Calculated C-SSRS Risk Score (Lifetime/Recent) Answer Date of Assessment Author No Risk Indicated 01/22/2025 8:00 PM Lucero Benson RN * Question Answer Date of Assessment Author 1. Wish to be (Past 1 Month) No 025 8:00 PM Lucero Benson, NASEEM 2. Non-Specific Active Suici mini Thoughts (Past 1 Month) No 01/22/2025 8:00 PM Lucero Benson, NASEEM 6. Suicidal Behavior (Lifetime) No 8:00 PM Lucero Benson, NASEEM documented as of this encounter Mental Status * Question Answer Entry Date Author Precautions Environmental survei llance;Fall risk 01/22/2025 8:00 PM Lucero Benson, NASEEM documented in this encounter Plan of Treatment Upcoming Encounters Date Type Department Care Team ([facility] st Contact Info) Description 03/15/2025 3:30 PM EST Clinical Support [facility]ology[facility] Cellular Therapy Program [address] [place] [address] 03/15/2025 4:00 PM EST Office Visit [facility] Therapy [facility] [address] [place] [phone] Parth Fitzgerald MD [address] [place] [address] 03/28/2025 1:40 PM EST Office Visit [facility] [place] B[place]don [address] [place] [address] Duglas Greer MD [address] [place] [address] 07/18/2025 1:40 PM EDT Office Visit [facility] [address], [address] [place] [address] Diana Alonzo PA [address] [place] [address] documented as of this encounter [...] documented as of this encounter Care Teams Ranch Cook Relationship Specialty Start Date End Date Favian Sandy DO [address] [place] [address] PCP - General 07/05/24 Navya Man MD [address] [place] [address] Consulting Physician Hematology 09/28/24 Gomes, Annette J, RN None None Registered Nurse 01/18/25 documented as of this encounter
--- OUTSIDE RECORDS SUMMARY | 2025-02-25 20:47 | XMS_ITS | Encounter Summary ---
Author Organization Healthcare Address [address] [place] [address] Care Team Providers Care Sprinkler Irrigation Equipment Mechanic Name Role Phone DuFavian Wilfrido SIU Primary Care Provider [phone] Navya Man MD Unavailable Camilla Guerrier RN Unavailable Unavailable Encounter Details Date Type Department Care Team (Late st Contact Info) Description 01/16/2025 Orders Only [facility] Medicine Specialties [address], 2[address] [place] [address] Diana Alonzo PA [address] [place] [address] Chronic hepatitis C without hepatic [...] any time in the past 12 m [facility], were you homeless or living in a intermediate (including now)? No 01/08/2025 [facility] Utilities Answer Date Recorded In [...] drink first t geri in the morning (EYE-INSPECTOR PACKER GLASS CONTAINER) to steady your nerves or to get [...] Upcoming Encounters Date Type Department Care Team ([facility] st Contact Info) Description 03/15/2025 3:30 PM EST Clinical Support [facility] Hematology/BMT and Cellular Therapy Program [address] [place] [phone] 03/15/2025 4:00 PM EST Office Visit [facility] Hematology/BMT and Cellular Therapy Program [address] [place] [phone] Parth Fitzgerald MD [address] [place] [address] 03/28/2025 1:40 PM EST Office Visit [facility] Diana [address] [place] [phone] Duglas Greer MD [address] [place] [phone] 07/18/2025 1:40 PM EDT Office Visit [facility] [address] 2[address] [place] [phone] Diana Alonzo, PA [address] [place] [address] Scheduled Orders Name Type Priority Associated Diagnoses Orde r Schedule Prothrombin Time/INR Lab Routine Chronic hepatitis C without hepatic coma Expected: 01/24/2025 (Approximate), Expires: 07/20/2026 Comprehensive Metabolic Panel, Plasma Lab Routine Chronic hepatitis C without hepatic coma Expected: 01/24/2025 (Approximate), Expires: 07/20/2026 Hepatitis C Virus (HCV) Quantitative PCR Lab Routine Chronic hepatitis C without hepatic coma Expected: 01/24/2025 (Approximate), Expires: 07/20/2026 CBC W/O Differential Lab Routine Chronic hepatitis C without hepatic coma Expected: 01/24/2025 (Approximate), Expires: 07/20/2026 documented as of this encounter Visit Diagnoses Diagnosis Chronic hepatitis C without hepatic coma- Primary documented in this encounter Additional Health Concerns Infection Onset Date Last Indicated Resolved Time MRSA Comment:Added from external infection. Source: [facility]. 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 Source: [facility]. 11/26/2023 02/09/2025 MDRO 08/22/2024 08/22/2024 Assessment Noted Time PHQ-9 Depression Total Score: 0 09/01/19 12:42 PM EDT A fall risk assessment has been complete d for the patient 09/27/2024 2:07 PM EDT A Body Mass Index follow-up plan has been documented for the patient 01/05/2025 12:57 PM EDT documented as of this encounter Care Teams Sprinkler Irrigation Equipment Mechanic Relationship Specialty Start Date End Date Favian Sandy DO [address] [place] [address] [place] [address] PCP - General 07/05/24 Navya Man MD [address] [place] [phone] Consulting Physician Hematology 09/28/24 Iglehart, Camilla J, RN VALUE-BASED TRANSFORMATION PROGRAM [place] Petit Guide Delegate 01/08/25 01/18/25 documented as of this encounter
--- OUTSIDE RECORDS SUMMARY | 2025-02-25 20:47 | XMS_ITS | Encounter Summary ---
Author Organization [facility] Address [address] [id number] Care Team Providers Care Nutrition Director Name Role Phone DuFavian Wilfrido SIU Primary Care Provider [phone] Navya Man MD Unavailable Camilla Guerrier RN Unavailable Unavailable Reason for Visit * Reason Onset Date Comments Med Refill 01/10/2025 Encounter Details Date Type Department Care Team (Late st Contact Info) Description 01/10/2025 Refill [facility]ematology/BMT and Cellular Therapy Program [address] [place] [address] [place] [address] Parth Fitzgerald MD [address] [place] [address] Social History Tobacco Use Types Packs/Day Years [...] any time in the past 12 m [facility], were you homeless or living in a fdc (including now)? No 01/08/2025 [facility] Utilities Answer Date Recorded In the past 12 months has th e [employer], gas, oil, or water [employer] threatened to shut off services in your [...] drink first t geri in the morning (EYE-YARD PIPE GRADER) to steady your nerves or to get [...] Upcoming Encounters Date Type Department Care Team ([facility] st Contact Info) Description 03/15/2025 3:30 PM EST Clinical Support [facility] Hematology/BMT and Cellular Therapy Program [address] [place] [phone] 03/15/2025 4:00 PM EST Office Visit [facility] Hematology/BMT and Cellular Therapy Program [address] [place] [phone] Parth Fitzgerald MD [address] [place] [address] 03/28/2025 1:40 PM EST Office Visit [facility] [place] 800 [facility]. [address] [place] [phone] Duglas Greer MD 800 [place] [phone] 07/18/2025 1:40 PM EDT Office Visit [facility] Medicine Specialties [address], 2[address] [place] [phone] Diana Alonzo PA [address] [facility] [address] [place] [address] documented as of this encounter Visit Diagnoses Not on filedocumented in this encounter Additional Health Concerns Infection Onset Date Last Indicated Resolved Time MRSA Comment:Added from external infection. Source: [facility]. 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 Source: [facility]. 11/26/2023 02/09/2025 MDRO 08/22/2024 08/22/2024 Assessment Noted Time PHQ-9 Depression Total Score: 0 09/01/19 12:42 PM EDT A fall risk assessment has been complete d for the patient 09/27/2024 2:07 PM EDT A Body Mass Index follow-up plan has been documented for the patient 01/05/2025 12:57 PM EDT documented as of this encounter Care Teams Nutrition Director Relationship Specialty Start Date End Date Favian Sandy DO [address] [place] [address] [address] [place] [address] PCP - General 07/05/24 Navya Man MD [address] [place] [address] Consulting Physician Hematology 09/28/24 Camilla Guerrier, RN VALUE-BASED TRANSFORMATION PROGRAM [place], [place] Senior Net Developer 01/08/25 01/18/25 documented as of this encounter
--- OUTSIDE RECORDS SUMMARY | 2025-02-25 20:47 | XMS_ITS | Encounter Summary ---
Author Organization [facility] Address [address] [place] [address] Care Team Providers Care Hairspring Assembler Name Role Phone Erica Sandyew Wilfrido SIU Primary Care Provider [phone] Navya Man MD Unavailable Encounter Details Date Type Department Care Team (Late st Contact Info) Description 01/07/2025 Orders Only [facility] [address] [place] [address] Diana Alonzo, PA [address] [place] [address] Chronic hepatitis C without hepatic [...] any time in the past 12 m [facility], were you homeless or living in a halfway (including now)? No 01/08/2025 [facility] Utilities Answer Date Recorded In the [...] drink first t geri in the morning (EYE-SIGN FABRICATOR) to steady your nerves or to get [...] Upcoming Encounters Date Type Department Care Team ([facility] st Contact Info) Description 03/15/2025 3:30 PM EST Clinical Support [facility] Hematology/BMT and Cellular Therapy Program [address] [place] [phone] 03/15/2025 4:00 PM EST Office Visit [facility] Hematology/BMT and Cellular Therapy Program [address] [place] [phone] Parth Fitzgerald MD [address] [place] [address] 03/28/2025 1:40 PM EST Office Visit [facility] Braydon 800 [facility]. [address] [place] [phone] Duglas Greer MD [address] [place] [phone] 07/18/2025 1:40 PM EDT Office Visit [facility] [address] [place] [phone] Diana Alonzo, PA [address] [place] [address] documented as of this encounter Visit Diagnoses Diagnosis Chronic hepatitis C without hepatic coma- Primary documented in this encounter Additional Health Concerns Infection Onset Date Last Indicated Resolved Time MRSA Comment:Added from external infection. Source: [facility]. 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 Source: [facility]. 11/26/2023 02/09/2025 MDRO 08/22/2024 08/22/2024 Assessment Noted Time PHQ-9 Depression Total Score: 0 09/01/19 12:42 PM EDT A fall risk assessment has been complete d for the patient 09/27/2024 2:07 PM EDT A Body Mass Index follow-up plan has been documented for the patient 01/05/2025 12:57 PM EDT documented as of this encounter Care Teams Hairspring Assembler Relationship Specialty Start Date End Date Favian Sandy DO [address] [place] [facility] [address] [place] [address] PCP - General 07/05/24 Navya Man MD [address] [place] [address] Consulting Physician Hematology 09/28/24 documented as of this encounter
--- OUTSIDE RECORDS SUMMARY | 2025-02-25 20:47 | XMS_ITS | Encounter Summary ---
Author Organization [facility] Address [address] [place] [address] Care Team Providers Care Gift Packer Name Role Phone DuFavian matamoros Primary Care Provider [phone] Navya Man MD Unavailable Camilla Guerrier RN Unavailable Unavailable Annette Gomes RN Unavailable Unavailable Reason for Visit * Reason Onset Date Comments Treatment 01/15/[address] art date 01/12/25. [facility] Encounter Details Date Type Department Care Team (Late st Contact Info) Description 01/15/2025 Telephone [place] [facility] [address] [place] [address] Diana Alonzo, PA [address] [place] [address] Treatment (HCV Treatment start date 01/12/25. Labs at [facility].) Social History Tobacco Use Types Packs/Day Years [...] any time in the past [address] [facility], were you homeless or living in a fci (including now)? No 02/06/2025 [facility] Utilities Answer Date Recorded In the [...] drink first t geri in the morning (EYE-MEAT GRADING MACHINE OPERATOR) to steady your nerves or [...] Date of Assessment Author Precautions Environmental surveillance 02/07/2025 8:0 0 AM Channing Guevara RN * Calculated C-SSRS Risk Score (Lifetime/Recent) Answer Date of Assessment Author No Risk Indicated 02/07/2025 8:00 AM Channing Guevara RN * Question Answer Date of Assessment Author 1. Wish to be (Past 1 Month) No 025 8:00 AM Channing Guevara RN 2. Non-Specific Active Suici mini Thoughts (Past 1 Month) No 02/07/2025 8:00 AM EST Silas Liz RN 6. Suicidal Behavior (Lifetime) No 8:00 AM Channing Guevara RN documented as of this encounter Mental Status * Question Answer Entry Date Author Precautions Environmental surveillance 02/07/2025 8:0 0 AM EST Channing Liz RN * Question Answer Entry Date Author Scale Used Pj 02/05/2025 7:30 PM EST Reins cheld, Rm K, RN documented in this encounter Miscellaneous Notes * Telephone Encounter - Gillian Childs - 02/07/2025 9:52 AM EST Pt inpatient at time of appointment and therefore could not attend TW4. SVR12 labs due on 06/29/25. Postponing prior to SVR12 to request labs orders from nursing. * Telephone Encounter - Gillian Childs - 02/05/2025 10:31 AM EST TW2 labs complete. RNA ND. DB updated. Attempted TW4 appt reminder. No answer, voicemail left. TW4 OV on 02/06. * Telephone Encounter - Gillian Childs - 01/28/2025 11:38 AM EST Provider will reach out to inpatient team for lab draw. * Telephone Encounter - Gillian Childs - 01/28/2025 11:31 AM EST Call to Pt to check in. Pt states that he is not aware of a discharge date at this point. SW explained that provider would like labs drawn prior to her appointment next week if possible. Pt will ask inpatient if they can draw them while he's there but feels that he doesn't really have any say. Pt is aware of need and will try to have labs drawn prior to follow up on 02/06. * Telephone Encounter - Gillian Childs - 01/17/2025 8:34 AM EST Treatment calendar mailed on 01/17. TW2 labs on 01/25 at [facility]. * Telephone Encounter - Gillian Childs - 01/15/2025 12:33 PM EST HCV Treatment start date 01/12/25. [facility]. Pt will be at around TW2 so will have labs drawn at [facility]. Will depending on appointments near SVR12 to determine where to have them sent. documented in this encounter Plan of Treatment Upcoming Encounters Date Type Department Care Team (Late st Contact Info) Description 03/15/2025 3:30 PM EST Clinical Support [facility]ology/BMT and Cellular Therapy Program [address] [place] [phone] 03/15/2025 4:00 PM EST Office Visit [facility] Hematology/BMT and Cellular Therapy Program [address] [place] [phone] Parth Fitzgerald MD [address] [place] [address] 03/28/2025 1:40 PM EST Office Visit [facility] [place] 800 [facility]. [address] [place] [address] Duglas Greer MD 800 [place] [address] 07/18/2025 1:40 PM EDT Office Visit [place] [facility] [address] [place] [address] Diana Alonzo PA [address] [place] [address] documented as of this encounter Visit Diagnoses Not on filedocumented in this encounter Additional Health Concerns Infection Onset Date Last Indicated Resolved Time MRSA Comment:Added from external infection. Source: [facility]. 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 Source: [facility]. 11/26/2023 02/09/2025 MDRO 08/22/2024 08/22/2024 COVID-19 Rule-Out 01/17/2025 01/17/2025 01/17/2025 3:57 PM [...] documented as of this encounter Care Teams Gift Packer Relationship Specialty Start Date End Date Favian Sandy DO 1210 [facility] [address] [place] [address] PCP - General 07/05/24 Navya Man MD [address] [phone] Consulting Physician Hematology 09/28/24 Camilla Guerrier, RN VALUE-BASED TRANSFORMATION PROGRAM [place], [place] Bar Pointer 01/08/25 01/18/25 Annette Gomes RN None None Registered Nurse 01/18/25 documented as of this encounter
--- OUTSIDE RECORDS SUMMARY | 2025-02-25 20:47 | XMS_ITS | Encounter Summary ---
Author Organization [facility] Address [address] [place] [address] Care Team Providers Care Veterinary Milk Specialist Name Role Phone DuFavian Wilfrido SIU Primary Care Provider [phone] Navya Man MD Unavailable Camilla Guerrier RN Unavailable Unavailable Encounter Details Date Type Department Care Team (Latest Contact Info) Description 01/17/2025 Travel Social History Tobacco Use Types Packs/Day [...] a senior care (including now)? No 01/18/2025 [facility] Utilities Answer Date Recorded In the past 12 months has e [email or web address], gas, oil, or water company threatened to [...] drink first t geri in the morning (EYE-TOLL LINEMAN) to steady your nerves or to get [...] Date of Assessment Author No Risk Indicated 01/17/2025 10:33 PM Jw Hayward, RN * Question Answer Date of Assessment Author 1. Wish to be (Past 1 Month) No 025 10:33 PM Jw Hayward, RN 2. Non-Specific Active Suici mini Thoughts (Past 1 Month) No 01/17/2025 10:33 PM Alice Hayward, RN 6. Suicidal Behavior (Lifetime) No 10:33 PM Jw Hayward, RN documented as of this encounter Plan of Treatment Upcoming Encounters Date Type Department Care Team (Late st Contact Info) Description 03/15/2025 3:30 PM EST Clinical Support [facility] Hematology/BMT and Cellular Therapy Program [address] [place] [phone] 03/15/2025 4:00 PM EST Office Visit [facility] Hematology/BMT and Cellular Therapy Program [address] [place] [phone] Parth Fitzgerald MD [address] [place] [address] 03/28/2025 1:40 PM EST Office Visit [facility] [place] [address] [facility]. [address] [place] [phone] Duglas Greer MD [address] [place] [phone] 07/18/2025 1:40 PM EDT Office Visit [place] [facility] [address] [place] [address] Diana Alonzo PA [address] [place] [address] documented as of this encounter Visit Diagnoses Not on filedocumented in this encounter Additional Health Concerns Infection Onset Date Last Indicated Resolved Time MRSA Comment:Added from external infection. Source: [facility]. 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 Source: [facility]. 11/26/2023 02/09/2025 MDRO 08/22/2024 08/22/2024 COVID-19 [...] documented as of this encounter Care Teams Veterinary Milk Specialist Relationship Specialty Start Date End Date Favian Sandy DO [address] [place] [address] [place] [address] PCP - General 07/05/24 Navya Man MD [address] [place] [address] Consulting Physician Hematology 09/28/24 Camilla Guerrier RN VALUE-BASED TRANSFORMATION PROGRAM [place], [place] Popcorn Vendor 01/08/25 01/18/25 documented as of this encounter
--- OUTSIDE RECORDS SUMMARY | 2025-02-25 20:47 | XMS_ITS | Encounter Summary ---
Author Organization Healthcare Address [address] [place] [address] Care Team Providers Care Package Checker Name Role Phone DuFavian Wilfrido [facility] Primary Care Provider [phone] Navya Man MD Unavailable Annette Gomes RN Unavailable Unavailable Encounter Details Date Type Department Care Team (Latest Contact Info) Description 01/20/2025 Travel Social History Tobacco Use Types Packs/Day [...] any time in the past 12 [facility], were you homeless or living in a [facility] (including now)? No 01/18/2025 [facility] Utilities Answer Date Recorded In the past 12 months has e [employer], gas, oil, or water company threatened to [...] drink first t geri in the morning (EYE-UNDERGROUND UTILITY LOCATOR) to steady your nerves or to get [...] Answer Date of Assessment Author Precautions Environmental surveillance;Fall risk 01/20/2025 8:00 PM Shailesh Candelario, NASEEM * Calculated C-SSRS Risk Score (Lifetime/Recent) Answer Date of Assessment Author No Risk Indicated 01/20/2025 8:00 AM Megan Troncoso RN * Question Answer Date of Assessment Author 1. Wish to be (Past 1 Month) No 025 8:00 AM Megan Troncoso RN 2. Non-Specific Active Suici mini Thoughts (Past 1 Month) No 01/20/2025 8:00 AM Ninoska Troncoso RN 6. Suicidal Behavior (Lifetime) No 8:00 AM Megan Troncoso RN documented as of this encounter Mental Status * Question Answer Entry Date Author Precautions Environmental survei llance;Fall risk 01/20/2025 8:00 PM Shailesh Candelario RN documented in this encounter Plan of Treatment Upcoming Encounters Date Type Department Care Team (Late st Contact Info) Description 03/15/2025 3:30 PM EST Clinical Support [facility] [address] [place] [address] [place] [address] 03/15/2025 4:00 PM EST Office Visit [facility] [address] [place] [address] [place] [address] Parth Fitzgerald MD [address] [place] [address] 03/28/2025 1:40 PM EST Office Visit [facility] [address] [place] [address] Duglas Greer MD [address] [place] [address] 07/18/2025 1:40 PM EDT Office Visit [facility] [address] [place] [address] Diana Alonzo PA [address] [place] [address] documented as of this encounter Visit Diagnoses Not on filedocumented in this encounter Additional Health Concerns Infection Onset Date Last Indicated Resolved Time MRSA Comment:Added from external infection. Source: [facility]. 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 Source: [facility]. 11/26/2023 02/09/2025 MDRO 08/22/2024 08/22/2024 C. difficile [...] documented as of this encounter Care Teams Package Checker Relationship Specialty Start Date End Date Favian Sandy DO [address] [facility] [address] [place] [address] PCP - General 07/05/24 Navya Man MD [address] [address] Consulting Physician Hematology 09/28/24 Annette Gomes, RN None None Registered Nurse 01/18/25 documented as of this encounter
[2025-02-25 20:49] LABS: Hematocrit 27.4 % (42.0-52.0); Hemoglobin 8.7 g/dL (14.1-18.0); Immature Granulocytes % 0.5 %; Mean Corpuscular HGB Conc 31.8 g/dL (31.8-35.4); Mean Corpuscular Hemoglobin 28.8 pg (27.0-31.2); Mean Corpuscular Volume 90.7 fl (80-94); Nucleated Red Blood Cells % 0.4 %; Platelet Count 553 K/mm3 (142-424); Red Blood Count 3.02 M/mm3 (4.60-6.20); Red Cell Distribution Width-SD 59.5 fL; Reticulocyte % (Auto) 9.5 % (0.9-3.2); White Blood Count 17.3 K/mm3 (4.8-10.8)
[2025-02-25 20:57] LABS: Alanine Aminotransferase 27 U/L (12-78); Albumin Level 5.0 g/dl (3.5-5.0); Albumin/Globulin Ratio 0.9 (1.1-1.8); Alkaline Phosphatase 105 U/L (38-126); Anion Gap 14.7 mEq/L (5-15); Aspartate Amino Transferase 49 U/L (17-59); Bilirubin,Total 2.7 mg/dl (0.2-1.3); Blood Urea Nitrogen 10 mg/dl (9-20); Calcium 8.6 mg/dl (8.4-10.2); Carbon Dioxide 22 mmol/L (22.0-30.0); Chloride 107 mmol/L (98-107); Creatinine Clearance Estimated 139 mL/min (50-200); Creatinine,Serum 0.90 mg/dl (0.66-1.25); Estimated Glomerular Filt Rate 99 ml/min (>60); GFR (African American) 120 ML/MIN (>60); Globulin 5.4 g/dL (1.3-3.2); Glucose 145 mg/dl (74-100); Potassium 4.7 mmoL/L (3.5-5.1); Sodium 139 mmol/L (136-145); Total Protein,Serum 10.4 g/dl (6.3-8.2)
[2025-02-25 21:03] LABS: D-Dimer 1.65 ug/mL (0.0-0.5)
[2025-02-25 21:05] LABS: Lipase 57 U/L (23-300)
[2025-02-25] MEDS: 0.9 % SODIUM CHLORIDE 1000ML 1,000 ML 999 ML IV (21:06)
[2025-02-25] MEDS: KETOROLAC 30MG/ML VIAL 30 MG IV (21:07)
[2025-02-25] MEDS: HYDROMORPHONE 2MG/ML SYRINGE 0.5 MG IV ×2 (21:07→22:02)
--- NOTE | 2025-02-25 21:16 | PC.NURSE ---
due to patient being a difficult stick, Ileana Louie MD okay with drawing first set of cultures out of patients midline.
[2025-02-25 21:17] LABS: Troponin I 0.02 ng/ml (0.00-0.034)
[2025-02-25 21:19] LABS: Polychromasia 1+; Total Cells Counted 100
[2025-02-25] MEDS: OXYCODONE 5MG IMMEDIATE RELEASE TABLET 5 MG PO (22:02)
[2025-02-25 22:12] LABS: Adenovirus,PCR Not Detected (NotDetected); Chlamydophila Pneumoniae, PCR Not Detected (NotDetected); Coronavirus 19, PCR Not Detected (NotDetected); Coronovirus HKU1,PCR Not Detected (NotDetected); Influenza A, PCR Not Detected (NotDetected); Influenza AH1, 2009 Not Detected (NotDetected); Influenza AH1, PCR Not Detected (NotDetected); Influenza AH3,PCR Not Detected (NotDetected); Influenza B, PCR Not Detected (NotDetected); Mycoplasma Pneumoniae, PCR Not Detected (NotDetected); Parainfluenza 1, PCR Not Detected (NotDetected); Parainfluenza 2, PCR Not Detected (NotDetected); Parainfluenza 3, PCR Not Detected (NotDetected); Parainfluenza 4, PCR Not Detected (NotDetected)
--- NOTE | 2025-02-25 22:37 | HMH.EDGENADL ---
Discharge Plan Disposition Patient Disposition: Left Against Medical Advice Condition: Fair Prescriptions Prescriptions: No Action hydroxyurea 500 mg capsule 500 mg PO DAILY Eliquis 5 mg tablet 5 mg PO DAILY oxycodone 20 mg tablet 30 mg PO Q6H Referrals Follow up/Referrals: Favian Sandy DO [Primary Care Provider, Family Practice] - See instructions Clinical Impressions Clinical Impression: Left against medical advice Print Language Print Language: Ghanaian Discharge ED Provider: Ileana Louie General Adult HPI General Chief complaint: Chest Pain Stated complaint: chest pain Time Seen by Provider: 02/25/25 20:37 Mode of Arrival: Ambulatory Source of Information: Patient Description of Symptoms (Recalled from ER Triage Doc. by RN): patient c/o chest and back pain with chills, fever since this morning. patient states he has a history of sickle cell and has a follow up scheduled with Dr. Sandy tomorrow. patient has a midline to right chest History of Present Illness HPI narrative: Patient is a 29-year-old male with a past medical history of sickle cell disease who presents to the emergency department with symptoms that include chills, fever, back pain, chest pain. Patient states that his symptoms started today. States that he was recently admitted for bacteremia. Patient had his PICC line taken out and replaced. Patient states that he was previously on IV antibiotics and patient is now on oral antibiotics. Patient denies any upper respiratory symptoms. Patient denies any cough. Patient states that the pain in his chest and back are similar to his previous sickle cell crises. Patient denies any other extremity pain. Patient does have a history of acute chest syndrome. Patient does denies any history of avascular necrosis. Patient states that his next transfusion is next month. Related Data Home Medications ?Medication ?Instructions ?Recorded ?Confirmed apixaban 5 mg tablet (Eliquis) 5 mg PO DAILY 04/25/24 07/05/24 hydroxyurea 500 mg capsule 500 mg PO DAILY 04/25/24 07/05/24 oxycodone 20 mg tablet 30 mg PO Q6H 07/05/24 07/05/24 Allergies Allergy/AdvReac Type Severity Reaction Status Date / Time morphine Allergy Unknown Verified 07/05/24 14:54 allergy reaction [facility] Disclaimer: The information contained in this section may have been updated after the patient was seen, as this information can be updated by other users. Medical History (Updated 02/25/25 @ 22:43 by Katie Gamboa RN) Sickle cell anemia Social History (Updated 07/05/24 @ 14:57 by JUNIOR Mixon) Smoking Status: Never smoker alcohol intake: never current occupational status: unemployed and disabled Travel in the last 8 weeks?: None Have you lived/traveled outside US in past 30 days?: No Contact w/someone who lives/traveled outside US past 30 days?: No Exposure to someone with infectious disease in past 14 days?: No Do you have a fever (greater than 100.4 F or 38 C)?: No Have you tested positive for COVID-19?: No Exposed to someone with COVID-19 in past 14 days?: No Do you have a sore throat?: No Do you have a cough?: No Do you have any weakness?: No Do you have any diarrhea?: No Are you experiencing any unusual bleeding?: No Do you have any muscle aches/pain?: No Do you have any abdominal pain?: No Are you experiencing loss of taste or smell?: No ROS Obtained: Yes All systems reviewed & no additional complaints except as documented and Yes Systems reviewed as appropriate & no additional complaints except as documented Physical Exam General General appearance: alert and in no apparent distress Head Head exam: atraumatic, normocephalic and normal inspection Eye Eye exam: Present normal appearance, PERRL and EOMI; Absent scleral icterus ENT ENT exam: Present normal exam and normal external ear exam Neck Neck exam: Present normal inspection and full ROM Chest Chest inspection: Present normal inspection and symmetric chest wall rise Respiratory Respiratory exam: Present normal lung sounds bilaterally; Absent respiratory distress or wheezes Cardiovascular Cardiovascular exam: Present tachycardia and normal heart sounds Abdominal Exam Abdominal exam: Present soft and distention; Absent tenderness, guarding or rebound Extremities Exam Extremities exam: Present normal inspection and full ROM Back Exam Back exam: Present normal inspection and full ROM Neurological Exam Neurological exam: Present alert and oriented X3 Psychiatric Psychiatric exam: Present normal affect and normal mood Skin Skin exam: Present warm and dry Medical Decision Making Medical Records Medical records reviewed: Yes I reviewed the patient's medical records. Screening: Per USPSTF and CDC recommendations, given the prevalence of disease in our region, it is our hospital?s policy to screen for HIV and viral Hepatitis for all patients aged 18 and over and those with ongoing risk factors. Mir Inquiry Pt receiving controlled substance: No Vital Signs: 02/25/25 20:39 02/25/25 20:47 02/25/25 22:41 Temperature 98 F 98.2 F Temperature Source Temporal Artery Scan Oral Pulse Rate 78 98 H Pulse Rate [Left] 89 Respiratory Rate 22 20 Blood Pressure 154/75 H Blood Pressure [Right Arm] 156/101 H Blood Pressure Mean [Right Arm] 119 Blood Pressure Source Automatic Cuff Blood Pressure Source [Right Arm] Automatic Cuff Blood Pressure Position Sitting Blood Pressure Position [Right Arm] Sitting 02 Sat by Pulse Oximetry 99 Oxygen Delivery Method Room Air Room Air Lab Data Lab results reviewed: Yes I reviewed the patient's lab results. Lab Results 02/25/25 20:39: WBC 17.3 H, RBC 3.02 L, Hgb 8.7 L, Hct 27.4 L, MCV 90.7, MCH 28.8, MCHC 31.8, RDW 18.3 H, Plt Count 553 H, MPV 8.5, Neut % (Auto) 48.7, Lymph % (Auto) 38.1, [place] % (Auto) 9.6 H, Eos % (Auto) 1.8, Baso % (Auto) 1.3, Neut # (Auto) 8.5 H, Lymph # (Auto) 6.6 H, [place] # (Auto) 1.7 H, Eos # (Auto) 0.3, Baso # (Auto) 0.2, Total Counted 100, Neutrophils % (Manual) 48, Lymphocytes % (Manual) 48, Monocytes % (Manual) 2, Eosinophils % (Manual) 2, Platelet Estimate Slight increase, Polychromasia 1+, Retic Count (auto) 9.5 H, D-Dimer 1.65 H, VBG pH 7.36, VBG pCO2 38.3, VBG pO2 49.9 H, VBG HCO3 21.3 L, VBG Total CO2 22.5 L, VBG O2 Saturation 84.2 H, VBG Base Excess -4.0 L, VBG Lactic Acid 2.4 H, Sodium 139, Potassium 4.7, Chloride 107, Carbon Dioxide 22, Anion Gap 14.7, BUN 10, Creatinine 0.90, Estimated Creat Clear 139, Estimated GFR 99, Est GFR ( Amer) 120, Glucose 145 H, Calcium 8.6, Total Bilirubin 2.7 H, AST 49, ALT 27, Alkaline Phosphatase 105, Troponin I 0.02, Total Protein 10.4 H, Albumin 5.0, Globulin 5.4 H, Albumin/Globulin Ratio 0.9 L, Lipase 57 02/25/25 22:05: Chlamy pneumoniae PCR Not detected, Adenovirus (PCR) Not detected, B. pertussis DNA (PCR) Not detected, Coronavirus OC43 (PCR) Not detected, Coronavirus HKU1 (PCR) Not detected, Coronavirus 229E (PCR) Not detected, SARS-CoV-2 (PCR) Not detected, Coronavirus NL63 (PCR) Not detected, Human Metapneumovir PCR Not detected, Influenza A (H1) PCR Not detected, Influ A (H1N1/09) PCR Not detected, Influenza A (H3) PCR Not detected, Influenza Type A (PCR) Not detected, Influenza Type B (PCR) Not detected, M. pneumoniae (PCR) Not detected, Parainfluenza 1 (PCR) Not detected, Parainfluenza 2 (PCR) Not detected, Parainfluenza 3 (PCR) Not detected, Parainfluenza 4 (PCR) Not detected, RSV (PCR) Not detected, Entero/Rhino (PCR) Not detected 02/25/25 20:39 02/25/25 20:39 Orders (Tests/Meds): ED MEDICATIONS Discontinued Medications Generic Name Dose Route Start Last Admin Trade Name Freq PRN Reason Stop Dose Admin Diphenhydramine HCl 50 mg 02/25/25 21:41 02/25/25 22:02 Diphenhydramine 50mg/Ml Vial IV 02/25/25 21:42 50 mg ONCE ONE Administration Hydromorphone HCl 0.5 mg 02/25/25 20:50 02/25/25 21:07 Hydromorphone 2mg/Ml Syringe IV 02/25/25 20:51 0.5 mg ONCE ONE Administration Hydromorphone HCl 0.5 mg 02/25/25 21:34 02/25/25 22:02 Hydromorphone 2mg/Ml Syringe IV 02/25/25 21:35 0.5 mg ONCE ONE Administration Hydromorphone HCl 0.5 mg 02/25/25 21:52 02/25/25 21:53 Hydromorphone 2mg/Ml Syringe IV 02/25/25 21:53 Not Given ONCE ONE Sodium Chloride 1,000 mls @ 999 mls/hr 02/25/25 20:50 02/25/25 21:06 Sod Chlor 0.9% 1000ml Bag IV 02/25/25 21:50 999 mls/hr .Q1H1M ONE Administration Ketorolac Tromethamine 30 mg 02/25/25 20:50 02/25/25 21:07 Ketorolac 30mg/Ml Vial IV 02/25/25 20:51 30 mg ONCE ONE Administration Oxycodone HCl 30 mg 02/25/25 20:50 02/25/25 21:53 Oxycodone 5mg Immediate Release Tablet PO 02/25/25 20:51 Not Given ONCE ONE Oxycodone HCl 5 mg 02/25/25 22:01 02/25/25 22:02 Oxycodone 5mg Immediate Release Tablet PO 02/25/25 22:02 5 mg ONCE ONE Administration ORDERS Category Date Time Status CXR 2 view (NOT portable) [XR chest 2V] Stat Exams 02/25/25 20:37 Completed CBC w/Auto Diff [Complete Blood Count Auto Diff] Stat Lab 02/25/25 20:39 Completed CMP [Comprehensive Metabolic Panel] Stat Lab 02/25/25 20:39 Completed D-Dimer Stat Lab 02/25/25 20:39 Completed Full Resp Panel w/COVID (H) Routine Lab 02/25/25 22:05 Completed Lipase Stat Lab 02/25/25 20:39 Completed Reticulocyte % (Auto) Stat Lab 02/25/25 20:39 Completed Trop I [Troponin I] Stat Lab 02/25/25 20:39 Completed Blood Culture Stat Micro 02/25/25 22:05 Received VBG [Venous Blood Gas] Stat RT 02/25/25 20:39 Completed EKG Request [ECG Request] Stat Y 02/25/25 21:16 Stop Req Medical Decision Narrative: Patient is a 29-year-old male with a past medical history of sickle cell disease who presents to the emergency department with concern for chest pain, back pain and chills. On arrival, patient was hypertensive mildly tachycardic differential was otherwise unremarkable. Differential includes but not limited to: Viral syndrome, aplastic crisis, acute chest syndrome, sickle cell crisis, urinary tract infection, amongst others. States that he takes 30 of p.o. oxycodone every 6 hours at home and it has been about 6 hours since his last home dose. Patient states that he typically needs IV Benadryl with his Dilaudid given itching. Given that patient recently had bacteremia currently on oral antibiotics, blood cultures were obtained 1 set from his PICC line and 1 from peripheral site. Was given oral oxycodone and IV Benadryl IV Dilaudid and IV fluids for his symptoms. Chest x-ray was obtained was reviewed and interpreted by myself and showed no acute pathology. Patient's labs were reviewed and interpreted by myself: CBC showed mild leukocytosis of 17, hemoglobin was stable at 8.7. Reticulocyte was elevated at 9.5. D-dimer was elevated at 1.65. VBG showed no acidosis mild elevated lactate of 2.4. CMP was unremarkable. Troponin was 0.02. Respiratory panel was negative. EKG was obtained which showed no acute pathology. No acute ST or T wave changes concerning for ischemia. Prior to further workup, patient signed out AMA. Critical Care Critical Care Time Critical Care Time: No
[2025-02-25 22:41] VITALS: BP 154/75; PULSE 98; RESP 20; TEMP 36.8; O2SAT 98
[2025-02-26 05:51] LABS: Acinetobacter calcoaceticus-ba Not Detected; Bacteroides fragilis Not Detected; CTX-M Detected; Candida auris Not Detected; Candida glabrata Not Detected; Enterobacterales Detected; Enterococcus faecalis Not Detected; Enterococcus faecium Not Detected; IMP Not Detected; KPC Not Detected; Klebsiella aerogenes Not Detected; NDM Not Detected; OXA-48-like Not Detected; Proteus spp. Not Detected; Salmonella spp. Not Detected; Serratia marcescens Not Detected; Staphylococcus epidermidis Not Detected; Staphylococcus lugdunensis Not Detected; Staphylococcus spp. Not Detected; Stenotrophomonas maltophilia Not Detected; Streptococcus agalactiae(GrpB) Not Detected; Streptococcus pyogenes Group A Not Detected; Streptococcus spp. Not Detected; VIM Not Detected; mcr-1 Not Detected
[2025-02-26 06:04] LABS: Klebsiella pneumoniae grp Detected
--- NOTE | 2025-02-26 06:23 | PC.NURSE ---
reported positive blood cultures to M Octavio REED
--- NOTE | 2025-02-26 06:40 | PC.NURSE ---
attempted to call pt, per MD Cunningham to have pt come back to ED. No answer at this time.
[2025-02-26 10:33] LABS: Acinetobacter calcoaceticus-ba Not Detected; Bacteroides fragilis Not Detected; CTX-M Detected; Candida auris Not Detected; Candida glabrata Not Detected; Enterobacterales Detected; Enterococcus faecalis Not Detected; Enterococcus faecium Not Detected; IMP Not Detected; KPC Not Detected; Klebsiella aerogenes Not Detected; Klebsiella pneumoniae grp Detected; NDM Not Detected; OXA-48-like Not Detected; Proteus spp. Not Detected; Salmonella spp. Not Detected; Serratia marcescens Not Detected; Staphylococcus epidermidis Detected; Staphylococcus lugdunensis Not Detected; Staphylococcus spp. Detected; Stenotrophomonas maltophilia Not Detected; Streptococcus agalactiae(GrpB) Not Detected; Streptococcus pyogenes Group A Not Detected; Streptococcus spp. Not Detected; VIM Not Detected; mcr-1 Not Detected; mecA/C Detected
--- NOTE | 2025-02-26 13:14 | PC.NURSE ---
pt has had an increase in positive results for his cultures. I gave the culture reports to . He is going to follow up with the pt.
--- NOTE | 2025-02-26 13:28 | PC.NURSE ---
made several attempts to contact the pt unsuccessfully. Due to the critical nature of his culture results requested a wellfare check. I spoke with dispatch who is going to send an officer to his address.
--- NOTE | 2025-02-26 15:20 | PC.NURSE ---
02/25/25 @ 2230- patient pulled this RN aside and asked if he cold leave and go to [facility] and leave AMA from [facility] ED at this time. MD Indra Louie made aware and signed AMA paperwork at 1834
--- NOTE | 2025-02-26 15:27 | PC.NURSE ---
The [facility] office was unable to make contact with the pt during the welfare check. An attempt was made 2X
--- NOTE | 2025-02-26 21:07 | PC.NURSE ---
Contact made with patient. Informed him of test results and informed that he needs to be seen at an emergency department for treatment. 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 Educated patient that he needs to be seen in the ER for his infection as soon as possible, to which the patient states that he has appt with them too tomorrow. Patient states that he will handle everything tomorrow for current issue and will not be coming to [facility] or traveling to any hospital tonight.
--- NOTE | 2025-02-26 23:19 | EXP.EVENT.NO ---
Patient was called multiple times regarding his blood culture results. Patient was unable to be contacted during the day, wellness check was sent given concerns for blood cultures growing multiple resistant organisms. Patient was eventually contacted this evening patient was recommended to return to the emergency department immediately for IV antibiotics given his blood culture results. 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 We highly recommended the patient return to the emergency department tonight.
== END 2025-02-25 22:43 | disposition left against medical advice (07) ==
PROVIDERS: Emergency Provider Student in an Organized Health Care Education/Training Program; PCP Internal Medicine
DX: A41.1 Sepsis due to other specified staphylococcus (principal); A41.59 Other Gram-negative sepsis; R07.9 Chest pain, unspecified; D57.00 Hb-SS disease with crisis, unspecified
CPT/HCPCS: 0223U; 71046; 80053; 82803; 83690; 84484; 85007; 85025; 85044; 85378; 87040; 87077; 87154; 87186; 93005; 96361; 96374; 96375; 96376; 99285; J1171; J1200; J1885; J7030

== ENCOUNTER 2025-02-28 18:00 | Emergency (ER) | payer OTHER, SELFPAY ==
--- OUTSIDE RECORDS SUMMARY | 2025-02-21 10:50 | XMS_ITS | Encounter Summary ---
Author Organization [facility] Address [address] [place] [address] Care Team Providers Care Mine Surveyor Name Role Phone DuFavian matamoros Wilfrido [facility] Primary Care Provider [phone] Navya Man MD Unavailable Annette Gomes RN Unavailable Unavailable Reason for Visit * Reason Comments Chronic hepatitis C without hepatic coma (CMS/HCC) * Consultation (Routine) - Closed Specialty Diagnoses / Procedures Referred By Contac t Referred To Contact Hepatology Diagnoses Chronic hepatitis C without hepatic coma Aric Lee MD [address] [place] [address] Phone: tel: fax: Referral ID Status Reason Start Date Expiration Date V isits Requested Visits Authorized [id number] Closed Specialty Services Required 01/04/2025 07/06/2026 1 1 Encounter Details Date Type Department Care Team (Late st Contact Info) Description 02/21/2025 10:50 AM EST [facility] [address] [place] [address] Diana Alonzo PA [address] [place] [address] Chronic hepatitis C without hepatic coma (Primary Dx) Social History Tobacco Use Types [...] any time in the past 12 m [facility], were you homeless or living in a fdc (including now)? No 02/06/2025 [facility] Utilities Answer Date Recorded In the past 12 months has [facility] idio, gas, oil, or water [employer] threatened to shut off services in your [...] drink first t geri in the morning ([employer]) to steady your nerves or to get [...] documented in this encounter Functional Status * Height Answer Date of Assessment Author 70 02/21/2025 10:58 AM EST Sadie Watterst * BMI (Calculated) Answer Date of Assessment Author 0 02/21/2025 10:58 AM EST Duong Tempest * Initial Excess Weight Answer Date of Assessment Author -75.3 02/21/2025 10:58 AM EST Camilla Watterspest * IBW in lbs (Bariatric) Answer Date of Assessment Author 166 02/21/2025 10:58 AM EST Watters, Tempest * IBW in kg (Bariatric) Answer Date of Assessment Author 75.3 02/21/2025 10:58 AM EST Watters, Tempest * Depression Screening Question Answer Date of Assessment Author Will the patient answer the depression risk questions? Yes 02/21/2025 11:01 AM EST Watters, Tempest * BMI (Calculated) Answer Date of Assessment Author 0 02/21/2025 10:58 AM EST Watters, Tempest * IBW/kg (Calculated) Male Answer Date of Assessment Author 73 02/21/2025 10:58 AM EST Watters, Tempest * IBW/kg (Calculated) Female Answer Date of Assessment Author 68.5 02/21/2025 10:58 AM EST Watters, Tempest * IBW/kg (Calculated) Answer Date of Assessment Author 73 02/21/2025 10:58 AM EST Watters, Tempest * Over the past 2 weeks, how often have you been bothered by any of the following problems? Question Answer Date of Assessment Author Little interest or pleasure in doing things Not at all 02/21/2025 11:01 AM EST Watters, Tempest Feeling down, depressed, or hopeless Not at all 02/21/2025 11:01 AM EST Watters, Tempest Patient Health Questionnaire -2 Score 0 02/21/2025 11:01 AM EST Watters, Tempest * Over the past 2 weeks, how often have you been bothered by any of the following problems? Question Answer Date of Assessment Author Trouble falling or staying a sleep, or sleeping too much Not at all 02/21/2025 11:01 AM EST Watters, Tempest Feeling tired or having cassi le energy Not at all 02/21/2025 11:01 AM EST Watters, Tempest Poor appetite or overeating Not at all 02/21/2025 11 :01 AM EST Watters, Tempest Feeling bad about yourself - or that you are a failure or have let yourself or your family down Not at all 02/21/2025 11:01 AM EST Watters, Tempest Trouble concentrating on thi ngs, such as reading the newspaper or watching television Not at all 02/21/2025 11:01 AM EST Watters, Tempest Moving or speaking so slowly that other people could have noticed. Or the opposite - being so fidgety or restless that you have been moving around a lot more than usual Not at all 02/21/2025 11:01 AM EST Duong Tempest Thoughts that you would be b jose luis off or hurting yourself in some way Not at all 02/21/2025 11:01 AM EST Camilla Watterspest Patient Health Questionnaire -9 Score 0 02/21/2025 11:01 AM EST Camilla Watterspest * How difficult have these problems made it for you to do your work, take care of things at home, or get along with other people? Answer Date of Assessment Author Not difficult at all 02/21/2025 11:01 AM EST Jocelin Cardona * Weight in (lb) to have BMI = 25 Answer Date of Assessment Author 173.9 02/21/2025 10:58 AM EST Duong Tempest * BMI (Calculated) Answer Date of Assessment Author 0 02/21/2025 10:58 AM EST Duong Tempest * Initial Excess Weight Answer Date of Assessment Author -75.3 02/21/2025 10:58 AM EST Duong Tempest * IBW in kg (Bariatric) Answer Date of Assessment Author 75.3 02/21/2025 10:58 AM EST Watters Tempest * IBW in lb (Bariatric) Answer Date of Assessment Author 166 02/21/2025 10:58 AM EST Duong Tempest * IBW/kg (Calculated) Answer Date of Assessment Author 73 02/21/2025 10:58 AM EST Duong Tempest * Adult Low Range Vt 6mL/kg Answer Date of Assessment Author 438 02/21/2025 10:58 AM EST Watters, Tempest * Adult Moderate Range Vt 8mL/kg Answer Date of Assessment Author 584 02/21/2025 10:58 AM EST Watters, Tempest * Adult High Range Vt 10mL/kg Answer Date of Assessment Author 730 02/21/2025 10:58 AM EST Duong, Tempest * Pain Score Answer Date of Assessment Author 0 02/21/2025 10:59 AM EST Duong Tempest * Pain Screening/Additional Assessments Question Answer Date of Assessment Author Pain Screening/Assessments Pain Screening 02/21/2025 1 0:59 AM EST Watters, Tempest * Pain Screening Answer Date of Assessment Author 0-10 02/21/2025 10:59 AM EST Watters, Tempest * Height Answer Date of Assessment Author 70 02/21/2025 10:58 AM EST Watters, Tempest * BMI (Calculated) Answer Date of Assessment Author 0 02/21/2025 10:58 AM EST Watters, Tempest * Over the past 2 weeks, how often have you been bothered by any of the following problems? Question Answer Date of Assessment Author Little interest or pleasure in doing things Not at all 02/21/2025 11:01 AM EST Watters, Tempest Feeling down, depressed, or hopeless Not at all 02/21/2025 11:01 AM EST Watters, Tempest Patient Health Questionnaire -2 Score 0 02/21/2025 11:01 AM EST Watters, Tempest * Over the past 2 weeks, how often have you been bothered by any of the following problems? Question Answer Date of Assessment Author Trouble falling or staying a sleep, or sleeping too much Not at all 02/21/2025 11:01 AM EST Watters, Tempest Feeling tired or having cassi le energy Not at all 02/21/2025 11:01 AM EST Watters, Tempest Poor appetite or overeating Not at all 02/21/2025 11 :01 AM EST Watters, Tempest Feeling bad about yourself - or that you are a failure or have let yourself or your family down Not at all 02/21/2025 11:01 AM EST Watters, Tempest Trouble concentrating on thi ngs, such as reading the newspaper or watching television Not at all 02/21/2025 11:01 AM EST Watters, Tempest Moving or speaking so slowly that other people could have noticed. Or the opposite - being so fidgety or restless that you have been moving around a lot more than usual Not at all 02/21/2025 11:01 AM EST Watetrs, Tempest Thoughts that you would be b jose luis off or hurting yourself in some way Not at all 02/21/2025 11:01 AM EST Watters, Tempest Patient Health Questionnaire -9 Score 0 02/21/2025 11:01 AM EST Watters, Tempest * How difficult have these problems made it for you to do your work, take care of things at home, or get along with other people? Answer Date of Assessment Author Not difficult at all 02/21/2025 11:01 AM EST Jocelin Cardona * Weight in (lb) to have BMI = 25 Answer Date of Assessment Author 173.9 02/21/2025 10:58 AM EST Duong Tempest * Pain Score Answer Date of Assessment Author 0 02/21/2025 10:59 AM EST Duong Tempest * Learning Needs Screening Question Answer Date of Assessment Author Are there things (barriers) that make it harder for this patient to learn? No Barriers 02/21/2025 10:58 AM EST [address] [place] [address] What is the best language to use for teaching this patient about his/her health? Latvian 02/21/2025 10:58 AM EST Duong Tempest What format does this patient think is most helpful for learning? Listening;Reading 02/21/2025 10:58 AM EST Sadie Watters t Primary Learner Patient 02/21/2025 10:58 AM EST Sadie Acunat * Readiness to Learn Question Answer Date of Assessment Author Readiness Eager 02/21/2025 10:58 AM EST Jocelin Dhaliwal documented as of this encounter Mental Status * Height Answer Entry Date Author 70 02/21/2025 10:58 AM EST Duong Tempest * BMI (Calculated) Answer Entry Date Author 0 02/21/2025 10:58 AM EST Duong Tempest * Initial Excess Weight Answer Entry Date Author -75.3 02/21/2025 10:58 AM EST Duong Tempest * IBW in lbs (Bariatric) Answer Entry Date Author 166 02/21/2025 10:58 AM EST Duong Tempest * IBW in kg (Bariatric) Answer Entry Date Author 75.3 02/21/2025 10:58 AM EST Duong Tempest * Depression Screening Question Answer Entry Date Author Will the patient answer the depression risk questions? Yes 02/21/2025 11:01 AM EST Duong Tempest * BMI (Calculated) Answer Entry Date Author 0 02/21/2025 10:58 AM EST Duong Tempest * IBW/kg (Calculated) Male Answer Entry Date Author 73 02/21/2025 10:58 AM EST Watters, Tempest * IBW/kg (Calculated) Female Answer Entry Date Author 68.5 02/21/2025 10:58 AM EST Watters, Tempest * IBW/kg (Calculated) Answer Entry Date Author 73 02/21/2025 10:58 AM EST Watters, Tempest * Over the past 2 weeks, how often have you been bothered by any of the following problems? Question Answer Entry Date Author Little interest or pleasure in doing things Not at all 02/21/2025 11:01 AM EST Watters, Tempest Feeling down, depressed, or hopeless Not at all 02/21/2025 11:01 AM EST Watters, Tempest Patient Health Questionnaire -2 Score 0 02/21/2025 11:01 AM EST Watters, Tempest * Over the past 2 weeks, how often have you been bothered by any of the following problems? Question Answer Entry Date Author Trouble falling or staying a sleep, or sleeping too much Not at all 02/21/2025 11:01 AM EST Watters, Tempest Feeling tired or having cassi le energy Not at all 02/21/2025 11:01 AM EST Watters, Tempest Poor appetite or overeating Not at all 02/21/2025 11 :01 AM EST Watters, Tempest Feeling bad about yourself - or that you are a failure or have let yourself or your family down Not at all 02/21/2025 11:01 AM EST Watters, Tempest Trouble concentrating on thi ngs, such as reading the newspaper or watching television Not at all 02/21/2025 11:01 AM EST Watters, Tempest Moving or speaking so slowly that other people could have noticed. Or the opposite - being so fidgety or restless that you have been moving around a lot more than usual Not at all 02/21/2025 11:01 AM EST Watters, Tempest Thoughts that you would be b jose luis off or hurting yourself in some way Not at all 02/21/2025 11:01 AM EST Watters, Tempest Patient Health Questionnaire -9 Score 0 02/21/2025 11:01 AM EST Watters, Tempest * [facility] Mental Health Concern Calculation Answer Entry Date Author 3 02/21/2025 11:01 AM EST Watters, Tempest * How difficult have these problems made it for you to do your work, take care of things at home, or get along with other people? Answer Entry Date Author Not difficult at all 02/21/2025 11:01 AM EST Fie lds, Tempest * Restart Pain Assessment Timer Answer Entry Date Author Yes 02/21/2025 10:59 AM EST Watters, Tempest * Weight in (lb) to have BMI = 25 Answer Entry Date Author 173.9 02/21/2025 10:58 AM EST Watters, Tempest * BMI (Calculated) Answer Entry Date Author 0 02/21/2025 10:58 AM EST Watters, Tempest * Initial Excess Weight Answer Entry Date Author -75.3 02/21/2025 10:58 AM EST Watters, Tempest * IBW in kg (Bariatric) Answer Entry Date Author 75.3 02/21/2025 10:58 AM EST Watters, Tempest * IBW in lb (Bariatric) Answer Entry Date Author 166 02/21/2025 10:58 AM EST Watters, Tempest * IBW/kg (Calculated) Answer Entry Date Author 73 02/21/2025 10:58 AM EST Watters, Tempest * Adult Low Range Vt 6mL/kg Answer Entry Date Author 438 02/21/2025 10:58 AM EST Watters, Tempest * Adult Moderate Range Vt 8mL/kg Answer Entry Date Author 584 02/21/2025 10:58 AM EST Watters, Tempest * Adult High Range Vt 10mL/kg Answer Entry Date Author 730 02/21/2025 10:58 AM EST Watters, Tempest * Pain Score Answer Entry Date Author 0 02/21/2025 10:59 AM EST Watters, Tempest * Pain Screening Answer Entry Date Author 0-10 02/21/2025 10:59 AM EST Watters, Tempest documented in this encounter Miscellaneous Notes * Progress Notes - Diana Alonzo PA - 02/21/2025 10:50 AM EST Images from the original note were not included. MEDICINE SPECIALTIES Hepatology Note Telehealth Statement Patient Verification Patient identity has been confirmed using name and date of ? Yes Authorizations and Agreements/Telemedicine Consent sent and consent confirmed? Yes Patient Location: Home/Other Patient confirms they are physically located in [place]? Yes If the patient is not physically located in [place], the provider has confirmed with [facility] thatthe provider is authorized to provide services in patient's stated location? N/A Provider Location: [facility] facility Audio and video or audio only? Audio and video Total visit time: 6 minutes History of Presenting Illness Mr. Moseh Maddox is a 29 yo black male with sickle cell anemia seen in follow up for hepatitis C treatment. Now on treatment with vosevi x12 weeks. Has about 5-6 weeks of treatment left. HCV RNA n.d., liver enzymes and bilirubin have all improved. No ascites, confusion, or GI bleeding. Has continued to require multiple hospitalizations related to his sickle cell. Liver history: He reports he was diagnosed with hepatitis C around 2017 or 2018 and treated there soon after. It was one pill a day for 12 weeks, he thinks epclusa. Reports being treated in [place]. Was just recently told he had hepatitis C again. Never been diagnosed with cirrhosis. No ascites, confusion, or GI bleeding. He has intermittent elevation in liver enzymes and bilirubin. Denies any significant alcohol use or herbal supplements. He suspects he contracted HCV via unprofessional tattoos. He was injail in 2019. He denies illicit drug use. He was born in 1995 Sickle cell disease has been complicated by frequent crisis, hx of CVA, hx of DVT. Undergoes monthly transfusions with hgb goal of 9-10 Past Medical History Medical History[1] Surgical History Surgical History[2] Family History Family History[3] Social History From [place] Not No kids Review of Systems A 14 point review of systems negative except for HPI Outpatient Medications Current Outpatient Medications Medication Instructions acetaminophen (TYLENOL) 1,000 mg, Oral, Every 8 hours PRN apixaban (ELIQUIS) 5 mg, Oral, 2 times daily Deferasirox (JADENU PO) 6 tablets, Every morning folic acid (FOLVITE) 1 mg, Oral, Daily hydroxyurea (HYDREA) 500 mg, Oral, 2 times daily magnesium oxide (MAG-OX) 400 mg, Oral, Daily methocarbamol (ROBAXIN) 750 mg, 3 times daily PRN naloxone (NARCAN) 4 mg, Nasal, As needed oxyCODONE (ROXICODONE) 30 mg, Oral, Every 6 hours PRN oxyCODONE (ROXICODONE) 5 mg, Oral, Every 6 hours PRN polyethylene glycol (MIRALAX) 17 g, Oral, Daily senna (SENOKOT) 8.6 mg, Oral, 2 times daily nshcxwts-hkcuhnpiq-hypshhklvq (Vosevi) 400-100-100 MG tablet tablet 1 tablet, Oral, Daily Allergies Allergies[4] Vital Signs Visit Vitals Ht 1.778 m (5' 10 ) BMI 25.56 kg/m?? Smoking Status Former BSA 2 m?? Physical Exam General - well nourished and developed male in no acute distress. Appears stated age. HEENT - no scleral icterus, EOMI, atraumatic, normocephalic; ears located midway on head with normal appearance, nose midline without discharge. Respiratory - respiratory rate even and non-labored Dermatologic - no jaundice, spider angiomata, multiple tattoos MSK - no deformities noted; no edema or erythema of joints visible, normal gait and station Neuro - no asterixis present, oriented to time and place. Psychiatric - pleasant, calm, cooperative. Labs Lab Results Component Value Date/Time AST 51 (H) 02/12/2025 0331 ALT 38 02/12/2025 0331 ALKPHOS 95 02/12/2025 0331 BILITOT 1.2 (H) 02/12/2025 0331 INR 1.4 (H) 02/05/2025 1457 ALBUMIN 3.6 02/12/2025 0331 CREATININE 0.72 02/12/2025 0331 Lab Results Component Value Date/Time HGB 9.0 (L) 02/22/2025 1301 WBC 12.02 (H) 02/22/2025 1301 PLT 474 (H) 02/22/2025 1301 Hepatitis Serologies Lab Results Component Value Date/Time HEPBSAG Negative 10/05/2024 0311 NUBIA Positive (A) 01/22/2024 0503 HAG Negative 10/04/2024 1049 Work-up Labs Lab Results Component Value Date/Time FERRITIN 2,318 (H) 10/06/2024 1343 TIBC 164 (L) 01/19/2025 1554 Assessment and Plan Problem List Items Addressed This Visit Digestive Chronic viral hepatitis C (CMS/HCC) - Primary Mr. Moshe Maddox is a 29 yo black male with sickle cell anemia seen in follow up for hepatitis C treatment. # Hepatitis C, chronic # Previous DAA therapy Diagnosed initially around 2016 or 2017 and treated there soon after. It was one pill a day for 12 weeks, he thinks epclusa. Reports being treated in [place]. Within last year, HBsAg negative, HCV ab positive, HIV negative 08/22/24 - HCV Gt 1a, .5 labs with RNA 113, 695 Bili intermittently elevated, has been up to 6 before - likely secondary to sickle cell crisis -Likely due to unprofessional tattoos, has also had fdc time Most recent abdominal imaging was CT AP with IV contrast 12/22/24 - homogenous hepatic enhancement,no biliary ductal dilation, no free fluid 12/10/24 Fibroscan - 4.5 kPa, IQR/median 6% Plan --started Vosevi x12 weeks (given hx of DAA therapy) on 01/10/25; 01/30/25 HCV RNA was not detected --reviewed fibroscan and and abdominal imaging - low fibrosis, no biliary dilation --monitor for sickle cell hepatopathy --discussed HCV natural history, treatment, and transmission; advised not to share razors, toothbrushes or items that may be contaminated with blood; advised against alcohol use -continue to monitor labs per HCV protocol # Sickle cell Sick cell disease has been complicated by frequent crisis, hx of CVA, hx of DVT. 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 [...] Problems Mother Sickle cell anemia Niece [4] Allergies Allergen Reactions Mushroom Extract Complex (Obsolete) Itching and Swelling Pt reports being allergic to all mushrooms Morphine Hives documented in this encounter Plan of Treatment Upcoming Encounters Date Type Department Care Team (Late st Contact Info) Description 03/15/2025 3:30 PM EST Clinical Support [facility] H[facility]ology/BMT and Cellular Therapy Program [address] [phone] 03/15/2025 4:00 PM EST Office Visit [facility] Hematology/BMT and Cellular Therapy Program [address] [place] [phone] Parth Fitzgerald MD [address] [place], [place] [id number] 03/28/2025 1:40 PM EST Office Visit [facility] [address] [facility] [place] [id number] Duglas Greer MD [address] [place] [phone] 07/18/2025 1:40 PM EDT [facility] [address] [place] [phone] Diana Alonzo PA [address] [place] [address] documented as of this encounter Visit Diagnoses Diagnosis Chronic hepatitis C without hepatic coma- Primary documented in this encounter Additional Health Concerns Infection Onset Date Last Indicated Resolved Time MRSA Comment:Added from external infection. Source: [facility]. 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 Source: [facility]. 11/26/2023 02/09/2025 MDRO 08/22/2024 08/22/2024 Rhinovirus [...] plan has been documented for the patient 02/25/2025 9:32 PM EST documented as of this encounter Care Teams Mine Surveyor Relationship Specialty Start Date End Date Favian Sandy DO [address] [place] [facility] [address] [place] [address] PCP - General 07/05/24 Navya Man MD [address] [address] Consulting Physician Hematology 09/28/24 Annette Gomes, RN None None Registered Nurse 01/18/25 02/27/25 documented as of this encounter
--- OUTSIDE RECORDS SUMMARY | 2025-02-22 12:00 | XMS_ITS | Encounter Summary ---
Author Organization [facility] Address [address] [place] [address] Care Team Providers Care Staff Counsel Name Role Phone DuFavian Wilfrido DO Primary Care Provider [phone] Navya Man MD Unavailable Annette Gomes RN Unavailable Unavailable Reason for Visit * Reason Comments Labs Dressing Change Encounter Details Date Type Department Care Team (Latest Contact Info) Description 02/22/2025 12:00 PM EST Clinical Support [facility] Hematology/BMT and Cellular Therapy Program [address] [place] [address] [place] [phone] Sickle cell disease with crisis and other complication (CMS/HCC) Social History Tobacco Use Types Packs/Day Years [...] time in the past 12 m [facility], were you homeless or living in a prison (including now)? No 02/06/2025 [facility] Utilities Answer Date Recorded In the [...] drink first t geri in the morning (EYE-SKIDWAY WORKER) to steady your nerves or to get rid of a hangover? 0 01/17/2025 CAGE Questionnaire Score 0 025 Sex and Gender Information Value Date Recorded Sex Assigned at Male 03/16/2024 2:12 PM EST Legal Sex Male 7:40 PM EDT Gender Identity Not on file Sexual Orientation Not on file documented as of this encounter Mental Status * Patient reported weight Answer Entry Date Author 180 02/22/2025 12:38 PM EST Mychart, Generic * Patient reported height Answer Entry Date Author 5 1 1 02/22/2025 12:38 PM EST Mychart, Generic * Patient reported weight one month ago Answer Entry Date Author 180 02/22/2025 12:38 PM EST Mychart, Generic * Patient reported weight six months ago Answer Entry Date Author 180 02/22/2025 12:38 PM EST Mychart, Generic * During the past two weeks my weight has Answer Entry Date Author not changed 02/22/2025 12:38 PM EST Mychart, Generic * Food Intake Answer Entry Date Author unchanged 02/22/2025 12:38 PM EST Mychart, Generic * No problems eating Answer Entry Date Author No 02/22/2025 12:38 PM EST Mychart, Generic * Other symptoms Answer Entry Date Author No 02/22/2025 12:38 PM EST Mychart, Generic * Patient rates activity and functions over past month as Answer Entry Date Author normal with no limitations 02/22/2025 12:[address] Mychart, Generic * Weight change % 6 months Answer Entry Date Author 0 02/22/2025 12:38 PM EST Mychart, Generic * Weight change % 1 month Answer Entry Date Author 0 02/22/2025 12:38 PM EST Mychart, Generic * Box 1 Answer Entry Date Author 0 02/22/2025 12:38 PM EST Mychart, Generic * Box 2 Answer Entry Date Author 0 02/22/2025 12:38 PM EST Mychart, Generic * Scoring Weight Loss Answer Entry Date Author 0 02/22/2025 12:38 PM EST Mychart, Generic * Box 3 Answer Entry Date Author 4 02/22/2025 12:38 PM EST Mychart, Generic * Box 4 Answer Entry Date Author 0 02/22/2025 12:38 PM EST Mychart, Generic * PG-SGA (SF) -(Additive Score box 1-4) Answer Entry Date Author 4 02/22/2025 12:38 PM EST Mychart, Generic * No appetite, just did not feel like eating Answer Entry Date Author No 02/22/2025 12:38 PM EST Mychart, Generic * Nausea Answer Entry Date Author No 02/22/2025 12:38 PM EST Mychart, Generic * Constipation Answer Entry Date Author No 02/22/2025 12:38 PM EST Mychart, Generic * Mouth sores Answer Entry Date Author No 02/22/2025 12:38 PM EST Mychart, Generic * Things taste funny or have no taste Answer Entry Date Author No 02/22/2025 12:38 PM EST Mychart, Generic * Problems swallowing Answer Entry Date Author No 02/22/2025 12:38 PM EST Mychart, Generic * Pain Answer Entry Date Author Yes 02/22/2025 12:38 PM EST Mychart, Generic * Diarrhea Answer Entry Date Author No 02/22/2025 12:38 PM EST Mychart, Generic * Dry mouth Answer Entry Date Author No 02/22/2025 12:38 PM EST Mychart, Generic * Smells bother me Answer Entry Date Author No 02/22/2025 12:38 PM EST Mychart, Generic * Feel full quickly Answer Entry Date Author No 02/22/2025 12:38 PM EST Mychart, Generic * Fatigue Answer Entry Date Author Yes 02/22/2025 12:38 PM EST Mychart, Generic * kg/cm or lbs/ft ? Answer Entry Date Author lbs/ft 02/22/2025 12:38 PM EST Mychart, Generic * Box 1 (A) Answer Entry Date Author 0 02/22/2025 12:38 PM EST Mychart, Generic * Global Assessment Score (Box 1 + Box 2 + Box 3 + Box 4 + Worksheet 4) Answer Entry Date Author 4 02/22/2025 12:38 PM EST Mychart, Generic * PG-SGA Categorical Stage Answer Entry Date Author A 02/22/2025 12:38 PM EST Mychart, Generic documented in this encounter Plan of Treatment Upcoming Encounters Date Type Department Care Team (Late st Contact Info) Description 03/15/2025 3:30 PM EST Clinical Support [facility] Hematology/BMT and Cellular Therapy Program [address] [address] 03/15/2025 4:00 PM EST Office Visit [facility] Hematology/BMT and Cellular Therapy Program [address] [address] Parth Fitzgerald MD 800 [place], [place] [id number] 03/28/2025 1:40 PM EST Office Visit [facility] [place] [address] [facility]. [address] [place] [phone] Duglas Greer MD 800 [place] [phone] 07/18/2025 1:40 PM EDT [facility] Visit [facility] [address], [address] [place] [address] Diana Alonzo, PA [address] [place] [address] documented as of this encounter Procedures Procedure Name Priority Date/Time Associated Diagnosis Comments CBC WITH AUTO DIFFERENTIAL Routine 02/22/2025 1:01 PM EST Sickle cell disease with crisis and other complication (CMS/HCC) TYPE AND SCREEN Routine 02/22/2025 1:01 PM EST Sickle cell disease with crisis and other complication (CMS/HCC) documented in this encounter Results * Type and screen (02/22/2025 1:01 PM EST) ABO/Rh O Positive 02/22/2025 1:36 PM EST BLOOD BANK Comment:Patient types mixed field due to transfused cells Antibody Screen Negative 02/22/2025 1:36 PM EST BLOOD BANK Specimen Expiration 02/25/2025 23:59 02/22/2025 1:36 PM EST BLOOD BANK Blood Blood sample taken from central line / Unknown (Port) Long-term Catheter / Unknown 02/22/2025 1:01 PM EST 02/22/2025 1:36 PM EST Seema Atkinson MD LAB BLOOD BANK TEST ORDERABLES F inal Result BLOOD BANK [address] [place] [address], * (ABNORMAL) CBC and Differential (02/22/2025 1:01 PM EST) WBC Count 12.02(H) 3.70 - 10.30 10*3/uL LAB HEMATOLOGY METHOD 02/22/2025 1:37 PM EST [facility] RBC Count 3.11(L) 4.60 - 6.10 10*6/uL LAB HEMATOLOGY METHOD 02/22/2025 1:37 PM EST [facility] HGB 9.0(L) 13.7 - 17.5 g/dL LAB HEMATOLOGY METHOD 02/22/2025 1:37 PM EST [facility] HCT 27.1(L) 40.0 - 51.0 % LAB HEMATOLOGY METHOD 02/22/2025 1:37 PM EST [facility] Platelet Count 474(H) 155 - 369 10*3/uL LAB HEMATOLOGY METHOD 02/22/2025 1:37 PM EST [facility] MCV 87 79 - 98 fL LAB HEMATOLOGY METHOD 02/22/2025 1:37 PM EST [facility] MCH 28.9 26.0 - 32.0 pg LAB HEMATOLOGY METHOD 02/22/2025 1:37 PM EST [facility] MCHC 33.2 30.7 - 35.5 g/dL LAB HEMATOLOGY METHOD 02/22/2025 1:37 PM [facility] RDW 18.3(H) 11.5 - 14.5 % LAB HEMATOLOGY METHOD 02/22/2025 1:37 PM [facility] MPV 8.5(L) 8.8 - 12.5 fL LAB HEMATOLOGY METHOD 02/22/2025 1:37 PM [facility] nRBC 0.3(H) <=0.0 per 100 WBCs LAB HEMATOLOGY METHOD 02/22/2025 1:37 PM [facility] Differential Type Automated LAB HEMATOLOGY METHOD 02/22/2025 1:37 PM [facility] Neutrophils % 68 % LAB HEMATOLOGY METHOD 02/22/2025 1:37 PM [facility] Lymphocytes % 20 % LAB HEMATOLOGY METHOD 02/22/2025 1:37 PM [facility] Monocytes % 10 % LAB HEMATOLOGY METHOD 02/22/2025 1:37 PM [facility] Eosinophils % 1 % LAB HEMATOLOGY METHOD 02/22/2025 1:37 PM [facility] Basophils % 1 % LAB HEMATOLOGY METHOD 02/22/2025 1:37 PM [facility] Immature Granulocytes % 0 % LAB HEMATOLOGY METHOD 02/22/2025 1:37 PM [facility] Neutrophils Absolute 8.15(H) 1.60 - 6.10 10*3/uL LAB HEMATOLOGY METHOD 02/22/2025 1:37 PM [facility] Lymphocytes Absolute 2.35 1.20 - 3.90 10*3/uL LAB HEMATOLOGY METHOD 02/22/2025 1:37 PM [facility] Monocytes Absolute 1.19(H) 0.30 - 0.90 10*3/uL LAB HEMATOLOGY METHOD 02/22/2025 1:37 PM [facility] Eosinophils Absolute 0.12 0.00 - 0.50 10*3/uL LAB HEMATOLOGY METHOD 02/22/2025 1:37 PM [facility] Basophils Absolute 0.17(H) 0.00 - 0.10 10*3/uL LAB HEMATOLOGY METHOD 02/22/2025 1:37 PM [facility] Immature Granulocytes Absolute 0.04 0.00 - 0.06 10*3/uL LAB HEMATOLOGY METHOD 02/22/2025 1:37 PM [facility] Blood Blood sample taken from central line / Unknown (Port) Long-term Catheter / Unknown 02/22/2025 1:01 PM EST 02/22/2025 1:35 PM EST Narrative [facility] - 02/22/2025 1:37 PM EST Therapeutic decision making should be based on absolute values, rather than percentages. Seema Atkinson MD LAB BLOOD ORDERABLES Final Resul t [facility] [address] [place] [address] documented in this encounter Visit Diagnoses Diagnosis Sickle cell disease with crisis and other complication (CMS/HCC) documented in this encounter Additional Health Concerns Infection Onset Date Last Indicated Resolved Time MRSA Comment:Added from external infection. Source: [facility]. 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 Source: [facility]. 11/26/2023 02/09/2025 MDRO 08/22/2024 08/22/2024 Rhinovirus [...] documented as of this encounter Care Teams Staff Counsel Relationship Specialty Start Date End Date Favian Sandy DO [address] [facility] [address] [address] PCP - General 07/05/24 Navya Man MD [address] [place] [address] Consulting Physician Hematology 09/28/24 Annette Gomes, RN None None Registered Nurse 01/18/25 02/27/25 documented as of this encounter
--- OUTSIDE RECORDS SUMMARY | 2025-02-22 13:35 | XMS_ITS | Encounter Summary ---
Author Organization [facility] Address [address] [place] [address] Care Team Providers Care Glost Placer Name Role Phone DuFavian Wilfrido SIU Primary Care Provider [phone] Navya Man MD Unavailable Annette Gomes RN Unavailable Unavailable Reason for Visit * Episode Based Medications (Routine) - Authorized Specialty Diagnoses / Procedures Referred By Contac t Referred To Contact Diagnoses Sickle cell disease with crisis and other complication (CMS/HCC) Procedures HEM/BMT Blood Administration for Outpatient Seema Atkinson MD [address] [address] Phone: tel: fax: Seema Atkinson MD [address] [address] Phone: tel: fax: Referral ID Status Reason Start Date Expiration Date V isits Requested Visits Authorized [id number] Authorized 02/20/2025 08/29/2026 1 12 Encounter Details Date Type Department Care Team (Latest Contact Info) Description 02/22/2025 1:35 PM EST - 02/22/2025 11:59 PM EST Hospital Encounter [facility] [address] [place] [id number] Discharge Disposition: Home or Self Care Social History Tobacco Use Types Packs/Day Years Used Date Smoking Tobacco: Former Cigarettes 0.3 3 2 013 2015 Passive Smoke Exposure: Past Smokeless Tobacco: [...] in a correction (including now)? 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) to steady your nerves or to get [...] 1:37 PM EST documented in this encounter Functional Status * BP Answer Date of Assessment Author 126/91 02/22/2025 1:37 PM EST Sanjuana Mac * Temp Answer Date of Assessment Author 97.9 02/22/2025 1:37 PM EST Sanjuana Mac * Temp src Answer Date of Assessment Author Oral 02/22/2025 1:37 PM EST Sanjuana Mac * Pulse Answer Date of Assessment Author 88 02/22/2025 1:37 PM EST Junior Macica * Resp Answer Date of Assessment Author 18 02/22/2025 1:37 PM EST Junior Macica * SpO2 Answer Date of Assessment Author 98 02/22/2025 1:37 PM EST Sanjuana Mac * Height Answer Date of Assessment Author 70 02/22/2025 1:37 PM EST Sanjuana Mac * Weight Answer Date of Assessment Author 2899.49 02/22/2025 1:37 PM EST Sanjuana Mac * BMI (Calculated) Answer Date of Assessment Author 26.1 02/22/2025 1:37 PM EST Sanjuana Mac * Percent Excess Weight Loss Answer Date of Assessment Author 0 02/22/2025 1:37 PM EST Sanjuana Mac * Total Weight Change Percent Answer Date of Assessment Author 2222 02/22/2025 1:37 PM EST Sanjuana Mac * Weight Change Since Preop Answer Date of Assessment Author 82.18 02/22/2025 1:37 PM EST Sanjuana Mac * Initial Excess Weight Answer Date of Assessment Author -75.3 02/22/2025 1:37 PM EST Sanjuana Mac * IBW in lbs (Bariatric) Answer Date of Assessment Author 166 02/22/2025 1:37 PM EST Sanjuana Mac * Weight Change Since Last Visit Answer Date of Assessment Author 82.18 02/22/2025 1:37 PM EST Sanjuana Mac * IBW in kg (Bariatric) Answer Date of Assessment Author 75.3 02/22/2025 1:37 PM EST Sanjuana Mac * Percent of IBW Answer Date of Assessment Author 3,850.58 02/22/2025 1:37 PM EST Sanjuana Mac * EBW (kg) Answer Date of Assessment Author 2,897.36 02/22/2025 1:37 PM EST Sanjuana Mac * EBW (lbs) Answer Date of Assessment Author 2,889.12 02/22/2025 1:37 PM EST Sanjuana Mac * Weight Change 24 hrs Answer Date of Assessment Author 1.4 02/22/2025 1:37 PM EST Junior Macica * BSA (Calculated - sq m) Answer Date of Assessment Author 2.01 02/22/2025 1:37 PM EST Sanjuana Mac * BMI (Calculated) Answer Date of Assessment Author 26 02/22/2025 1:37 PM EST Sanjuana Mac * BP Location Answer Date of Assessment Author Right arm 02/22/2025 1:37 PM EST Sanjuana Mac * IBW/kg (Calculated) Male Answer Date of Assessment Author 73 02/22/2025 1:37 PM EST Sanjuana Mac * IBW/kg (Calculated) Female Answer Date of Assessment Author 68.5 02/22/2025 1:37 PM EST Sanjuana Mac * Restart Vitals Timer Answer Date of Assessment Author Yes 02/22/2025 1:37 PM EST Sanjuana Mac * IBW/kg (Calculated) Answer Date of Assessment Author 73 02/22/2025 1:37 PM EST Sanjuana Mac * Weight in (lb) to have BMI = 25 Answer Date of Assessment Author 173.9 02/22/2025 1:37 PM EST Sanjuana Mac * BMI (Calculated) Answer Date of Assessment Author 26.1 02/22/2025 1:37 PM EST Sanjuana Mac * Percent Excess Weight Loss Answer Date of Assessment Author 0 02/22/2025 1:37 PM EST Sanjuana Mac * Weight Change Since Preop Answer Date of Assessment Author 82.2 02/22/2025 1:37 PM EST Sanjuana Mac * Initial Excess Weight Answer Date of Assessment Author -75.3 02/22/2025 1:37 PM EST Junior Macica * IBW in kg (Bariatric) Answer Date of Assessment Author 75.3 02/22/2025 1:37 PM EST Junior Macica * IBW in lb (Bariatric) Answer Date of Assessment Author 166 02/22/2025 1:37 PM EST Sanjuana Mac * Weight Change Since Last Visit Answer Date of Assessment Author 3.8 02/22/2025 1:37 PM EST Sanjuana Mac * Percent of IBW Answer Date of Assessment Author 109.17 02/22/2025 1:37 PM EST Junior Macica * EBW (kg) Answer Date of Assessment Author 6.88 02/22/2025 1:37 PM EST Sanjuana Mac * EBW (lb) Answer Date of Assessment Author 15.22 02/22/2025 1:37 PM EST Bubba, Sanjuana * Difference in Weight Since Last Visit Answer Date of Assessment Author 1.4 02/22/2025 1:37 PM EST Sanjuana Mac * Temp (in Celsius) for [place] Answer Date of Assessment Author 36.6 02/22/2025 1:37 PM EST Sanjuana Mac * IBW/kg (Calculated) Answer Date of Assessment Author 73 02/22/2025 1:37 PM EST Sanjuana Mac * Adult Low Range Vt 6mL/kg Answer Date of Assessment Author 438 02/22/2025 1:37 PM EST Junior Macica * Adult Moderate Range Vt 8mL/kg Answer Date of Assessment Author 584 02/22/2025 1:37 PM EST Sanjuana Mac * Adult High Range Vt 10mL/kg Answer Date of Assessment Author 730 02/22/2025 1:37 PM EST Junior Macica * Vitals Timer Question Answer Date of Assessment Author Restart Vitals Timer Yes 02/22/2025 1:[address] Sanjuana Mac * Patient Position Answer Date of Assessment Author Sitting 02/22/2025 1:37 PM EST Junior Macica * BP Answer Date of Assessment Author 126/91 02/22/2025 1:37 PM EST Junior Macica * Temp Answer Date of Assessment Author 97.9 02/22/2025 1:37 PM EST Sanjuana Mac * Temp src Answer Date of Assessment Author Oral 02/22/2025 1:37 PM EST Junior Macica * Pulse Answer Date of Assessment Author 88 02/22/2025 1:37 PM EST Junior Macica * Resp Answer Date of Assessment Author 18 02/22/2025 1:37 PM EST Junior Macica * SpO2 Answer Date of Assessment Author 98 02/22/2025 1:37 PM EST Bubba, Sanjuana * Height Answer Date of Assessment Author 70 02/22/2025 1:37 PM EST Junior Macica * Weight Answer Date of Assessment Author 2899.49 02/22/2025 1:37 PM EST Bubba, Sanjuana * BSA (Calculated - sq m) Answer Date of Assessment Author 2.01 02/22/2025 1:37 PM EST Bubba, Sanjuana * BMI (Calculated) Answer Date of Assessment Author 26 02/22/2025 1:37 PM EST Bubba, Sanjuana * BP Location Answer Date of Assessment Author Right arm 02/22/2025 1:37 PM EST Junior Macica * Restart Vitals Timer Answer Date of Assessment Author Yes 02/22/2025 1:37 PM EST Sanjuana Mac * Weight in (lb) to have BMI = 25 Answer Date of Assessment Author 173.9 02/22/2025 1:37 PM EST Junior Macica * Patient Position Answer Date of Assessment Author Sitting 02/22/2025 1:37 PM EST Sanjuana Mac documented as of this encounter Mental Status * BP Answer Entry Date Author 126/91 02/22/2025 1:37 PM EST Junior Macica * Temp Answer Entry Date Author 97.9 02/22/2025 1:37 PM EST Bubba, Sanjuana * Temp src Answer Entry Date Author Oral 02/22/2025 1:37 PM EST Junior Macica * Pulse Answer Entry Date Author 88 02/22/2025 1:37 PM EST Junior Macica * Resp Answer Entry Date Author 18 02/22/2025 1:37 PM EST Bubba, Sanjuana * SpO2 Answer Entry Date Author 98 02/22/2025 1:37 PM EST Bubba, Sanjuana * Height Answer Entry Date Author 70 02/22/2025 1:37 PM EST Junior Macica * Weight Answer Entry Date Author 2899.49 02/22/2025 1:37 PM EST Junior Macica * BMI (Calculated) Answer Entry Date Author 26.1 02/22/2025 1:37 PM EST Junior Macica * Percent Excess Weight Loss Answer Entry Date Author 0 02/22/2025 1:37 PM EST Sanjuana Mac * Total Weight Change Percent Answer Entry Date Author 2222 02/22/2025 1:37 PM EST Sanjuana Mac * Weight Change Since Preop Answer Entry Date Author 82.18 02/22/2025 1:37 PM EST Sanjuana Mac * Initial Excess Weight Answer Entry Date Author -75.3 02/22/2025 1:37 PM EST Sanjuana Mac * IBW in lbs (Bariatric) Answer Entry Date Author 166 02/22/2025 1:37 PM EST Sanjuana Mac * Weight Change Since Last Visit Answer Entry Date Author 82.18 02/22/2025 1:37 PM EST Sanjuana Mac * IBW in kg (Bariatric) Answer Entry Date Author 75.3 02/22/2025 1:37 PM EST Sanjuana Mac * Percent of IBW Answer Entry Date Author 3,850.58 02/22/2025 1:37 PM EST Sanjuana Mac * EBW (kg) Answer Entry Date Author 2,897.36 02/22/2025 1:37 PM EST Sanjuana Mac * EBW (lbs) Answer Entry Date Author 2,889.12 02/22/2025 1:37 PM EST Sanjuana Mac * Weight Change 24 hrs Answer Entry Date Author 1.4 02/22/2025 1:37 PM EST Sanjuana Mac * Patient reported weight Answer Entry Date [...] A 02/22/2025 12:38 PM EST Mychart, Generic * BSA (Calculated - sq m) Answer Entry Date Author 2.01 02/22/2025 1:37 PM EST Sanjuana Mac * BMI (Calculated) Answer Entry Date Author 26 02/22/2025 1:37 PM EST Sanjuana Mac * BP Location Answer Entry Date Author Right arm 02/22/2025 1:37 PM EST Sanjuana Mac * IBW/kg (Calculated) Male Answer Entry Date Author 73 02/22/2025 1:37 PM EST Sanjuana Mac * IBW/kg (Calculated) Female Answer Entry Date Author 68.5 02/22/2025 1:37 PM EST Sanjuana Mac * Restart Vitals Timer Answer Entry Date Author Yes 02/22/2025 1:37 PM EST Sanjuana Mac * IBW/kg (Calculated) Answer Entry Date Author 73 02/22/2025 1:37 PM EST Sanjuana Mac * Weight in (lb) to have BMI = 25 Answer Entry Date Author 173.9 02/22/2025 1:37 PM EST Sanjuana Mac * BMI (Calculated) Answer Entry Date Author 26.1 02/22/2025 1:37 PM EST Sanjuana Mac * Percent Excess Weight Loss Answer Entry Date Author 0 02/22/2025 1:37 PM Sanjuana Cardenas * Weight Change Since Preop Answer Entry Date Author 82.2 02/22/2025 1:37 PM Sanjuana Cardenas * Initial Excess Weight Answer Entry Date Author -75.3 02/22/2025 1:37 PM Sanjuana Cardenas * IBW in kg (Bariatric) Answer Entry Date Author 75.3 02/22/2025 1:37 PM Sanjuana Cardenas * IBW in lb (Bariatric) Answer Entry Date Author 166 02/22/2025 1:37 PM Sanjuana Cardenas * Weight Change Since Last Visit Answer Entry Date Author 3.8 02/22/2025 1:37 PM Sanjuana Cardenas * Percent of IBW Answer Entry Date Author 109.17 02/22/2025 1:37 PM Sanjuana Cardenas * EBW (kg) Answer Entry Date Author 6.88 02/22/2025 1:37 PM Sanjuana Cardenas * EBW (lb) Answer Entry Date Author 15.22 02/22/2025 1:37 PM Sanjuana Cardenas * Difference in Weight Since Last Visit Answer Entry Date Author 1.4 02/22/2025 1:37 PM Sanjuana Cardenas * Temp (in Celsius) for [place] Answer Entry Date Author 36.6 02/22/2025 1:37 PM Sanjuana Cardenas * IBW/kg (Calculated) Answer Entry Date Author 73 02/22/2025 1:37 PM Sanjuana Cardenas * Adult Low Range Vt 6mL/kg Answer Entry Date Author 438 02/22/2025 1:37 PM Sanjuana Cardenas * Adult Moderate Range Vt 8mL/kg Answer Entry Date Author 584 02/22/2025 1:37 PM Sanjuana Cardenas * Adult High Range Vt 10mL/kg Answer Entry Date Author 730 02/22/2025 1:37 PM Sanjuana Cardenas * BP Cuff Size Answer Entry Date Author Adult 02/22/2025 1:37 PM Sanjuana Cardenas * Vitals Timer Question Answer Entry Date Author Restart Vitals Timer Yes 02/22/2025 1:37 PM Sanjuana Chavis * Patient Position Answer Entry Date Author Sitting 02/22/2025 1:37 PM Sanjuana Cardenas documented in this encounter Medications at Time [...] 03/15/2025 3:30 PM EST Clinical Support [facility] [address] [facility] [place] [id number] 03/15/2025 4:00 PM EST Office Visit [facility] H[facility]/B[facility] Cellular Therapy Program [address] [facility] [place] [id number] Parth Fitzgerald MD [address] [place] [address] 03/28/2025 1:40 PM EST Office Visit [facility] [place] [address] [facility] [place] [phone] Duglas Greer MD [address] [place] [address] 07/18/2025 1:40 PM EDT Office Visit [facility] [address] [place] [address] Diana Alonzo, PA [address] [place] [address] documented as of this encounter Visit Diagnoses Not on filedocumented in this encounter Additional Health Concerns Infection Onset Date Last Indicated Resolved Time MRSA Comment:Added from external infection. Source: [facility]. 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 Source: [facility]. 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 Do not resolve this infection. 02/09/2025 02/14/2025 Assessment Noted Time PHQ-9 Depression Total Score: 0 02/22/20 25 11:01 AM EST A fall risk assessment has been complete d for the patient 02/21/2025 11:01 AM EST A Body Mass Index follow-up plan has been documented for the patient 02/25/2025 9:32 PM EST documented as of this encounter Care Teams Glost Placer Relationship Specialty Start Date End Date Favian Sandy DO [address] [place] [address] [place] [address] PCP - General 07/05/24 Navya Man MD [address] [address] Consulting Physician Hematology 09/28/24 Annette Gomes, RN None None Registered Nurse 01/18/25 02/27/25 documented as of this encounter
[2025-02-28 18:07] VITALS: BP 134/86; PULSE 108; O2SAT 100
[2025-02-28 18:08] VITALS: BP 134/86; PULSE 105; RESP 16; TEMP 36.7; O2SAT 98; BMI 26.4
--- NOTE | 2025-02-28 18:21 | XR_ITS ---
PROCEDURE INFORMATION: Exam: XR Chest Exam date and time: 02/28/2025 6:16 PM Age: 29 years old Clinical indication: Pain; Other: Cp; Additional info: Sickle cell, chest pain TECHNIQUE: Imaging protocol: Radiologic exam of the chest. Views: 2 views. COMPARISON: CR Chest 02/25/2025 9:16 PM FINDINGS: Tubes, catheters and devices: Central venous catheter, tip projected over right lung apex, exact location uncertain but is unchanged from prior exam and is most likely within the internal jugular vein. Lungs: Clear lungs. Pleural spaces: No pneumothorax. No sizable pleural effusion. Heart/Mediastinum: No cardiomegaly. Bones/joints: Unremarkable. IMPRESSION: Clear lungs.
--- OUTSIDE RECORDS SUMMARY | 2025-02-28 18:23 | XMS_ITS | Clinical Summary ---
Author Organization [facility] Address [address] [place] [address] Phone Care Team Providers Care Speech Communication Instructor Name Role Phone Unavailable Unavailable Conditions or Problems No information available. Medications No information available. Medications Administered No information available. Allergies, Adverse Reactions, Alerts No information available. Results No information available. Plan of Care No information available. Procedures No information available. Vital Signs No information available. Immunizations No information available. Advance Directives No information available.
--- OUTSIDE RECORDS SUMMARY | 2025-02-28 18:23 | XMS_ITS ---
Author Organization [facility] Address [address] [place] [address] Care Team Providers Care Single Corner Cutter Name Role Phone Favian Sandy DO Primary Care Provider [phone] Navya Man MD Unavailable Hepatitis C Program Status:Active (Active) Program category:Social Work Start date:01/22/2024 Enrollment date:01/22/2024 Enrollment reason:HCV Continued Care and Services Coordination
--- OUTSIDE RECORDS SUMMARY | 2025-02-28 18:25 | XMS_ITS | Clinical Summary ---
Author Organization [facility] Address [address] [place] [address] Care Team Providers Care Stock Fitter Name Role Phone DuFavian Wilfrido SIU Primary Care Provider [phone] Navya Man MD Unavailable Allergies Active Allergy [...] 1 tablet by mouth daily. 30 tablet 025 2024 Active polyethylene glycol (Miralax) 17 g [...] 1 tablet by mouth daily. 30 tablet 025 2024 Discontinued linezolid (Zyvox) 600 MG tabletIndications [...] lower extremity 04/11/2024 06/15/2024 Chronic pulmonary edema 03/25/2024 0403/2024 Acute respiratory failure with hypoxemia 01/21/2024 06/15/2024 Sickle cell pain crisis 01/21/2024 0603/2024 Assessment & Plan (08/20/2024 3:41 PM EDT): [...] Hospital Encounter [facility] [address] [place] [address] Discharge Disposition: Home or Self Care 02/22/2025 12:00 PM EST Clinical Support [facility] [address] [place] [address] Sickle cell disease with crisis and other complication (CMS/HCC) 02/22/2025 Travel 02/21/2025 10:50 AM EST Office Visit [facility] [address] [place] [address] Diana Alonzo PA Chronic hepatitis C without hepatic coma (Primary Dx) 02/21/2025 Orders Only [facility] [address] [place] [address] Seema Atkinson MD Sickle cell disease with crisis and other complication (CMS/HCC) (Primary Dx) 02/21/2025 Orders Only [facility] [address] [place] [address] Seema Atkinson MD Sickle cell disease with crisis and other complication (CMS/HCC) (Primary Dx) 02/18/2025 Travel 02/15/2025 Patient Outreach [facility] [address], [address] [place] [address] Annette Gomes, RN [facility] 02/11/2025 Travel 02/10/2025 Travel 02/09/2025 Travel 02/08/2025 Travel 02/06/2025 Travel 02/06/2025 Patient Outreach [facility] [place] [address] [address], [address] [place] [address] Annette Gomes, NASEEM 02/05/2025 Orders Only External Location [address] [place] [address] Provider, External 02/05/2025 Travel 02/04/2025 Telephone [facility] Hematology/BMT and Cellular Therapy Program [address] [facility] [place] [address] Parth Fitzgerald MD Med Refill 02/04/2025 Patient Outreach POPULATION [address], [address] [place] [address] Annette Gomes, NASEEM [facility] 02/04/2025 Clinical Support [place] [phone] Jaydon Stuart, PharmD 01/31/[address] [address] Chichi Quispe MBBS 01/31/[address] [address] Chichi Quispe MBBS 01/31/[address] [address] AkinChichi rosenbaum MBBS 01/28/2025 Travel 01/23/2025 Travel 01/22/2025 Travel 01/21/2025 Travel 01/20/2025 Travel 01/18/2025 Referral Triage [facility] [address] [place], [place] [address]malgorzata Ramirez, [address] [place] [phone] Annette Gomes, RN 01/18/2025 Patient Outreach [facility] [address] [place], [place] [address]za, [address] [place] [address] Harrison Ileana Pj 01/17/2025 Travel 01/16/2025 Orders Only [facility] [address] [place] [address] Diana Alozno PA Chronic hepatitis C without hepatic coma (Primary Dx) 01/16/2025 Telephone [facility] [address] [place] [phone] Joann Posey, RN 01/15/2025 Telephone [facility] [address] [place] [phone] Diana Alonzo PA Treatment (HCV Treatment start date 01/12/25. Labs at /[facility].) 01/10/2025 Refill [facility] Hematology/BMT and Cellular Therapy Program [address] [place] [phone] Parth Fitzgerald MD 01/10/2025 Orders Only [facility] [address] [place] [phone] Diana Alonzo PA Chronic hepatitis C without hepatic coma 01/08/2025 Patient Outreach [facility] [address] [place] [address] Ashley, [address] [place] [address] Camilla Guerrier, RN [facility] 01/07/2025 Orders Only [facility] [address] [place] [phone] Godman, Diana M, PA Chronic hepatitis C without hepatic coma (Primary Dx) 01/07/2025 Telephone [facility] [address] [place] [address] Papo Campo, PharmD 01/03/2025 Telephone [facility] [address] [place] [address] Aric Lee MD Prior-authorizatio n/insurance Verification 01/03/2025 Telephone [facility] [address] [place] [address] Markie Kaufman, investigator internal revenue TEST CLAIM 01/02/2025 Travel 12/31/2024 Patient Outreach [facility] [address] [place] [address] Jackie Menard 12/27/2024 Telephone [facility] [address] [place] [address] Ileana Gongora, PharmD 12/27/2024 Travel 12/22/2024 Travel 12/18/2024 Travel 12/17/2024 Treatment [facility] [address] [address] Diana Alonzo PA 12/17/2024 Travel 12/12/2024 Travel 12/11/2024 Telephone [facility] [address] [place] [address] Kyra Lopez, RN 12/10/2024 10:00 AM EDT Ancillary Procedure [facility] [address] [place] [address] Chronic hepatitis C without hepatic coma 12/10/2024 Travel 12/09/2024 Travel 12/07/2024 Refill [facility] [address] [place] [phone] Parth Fitzgerald MD from Last 3 Months Immunizations Immunization Administration Dates Next Due DTP / HiB 02/06/1996,06/29/1995,03/22/1995 DTaP, Unspecified 12/08/1998 Hep B, Adolescent or Pediatric 06/29/1995 Influenza, Unspecified 03/09/2021,2019,12/13/2017,2010,01/01/2010,12/19/2008,01/25/2008 Influenza, injectable, quadr ivalent, preservative free 11/24/2018 Influenza, seasonal, injectable 12/11/2016,01/25,03/02/2007 Influenza, seasonal, injecta ble, preservative free 12/30/2011 MMR 09/17/1998,09/26/1995 Novel [id number], all formulations 02/13/2009 OPV 09/17/1998,06/29/1995,03/22/1995 Tdap 08/24/2006 [...] a intermediate (including now)? No 02/06/2025 [facility] Utilities Answer Date Recorded In the past 12 months has e [employer], [employer], oil, or water [email or web address] threatened to shut off services in your [...] drink first t geri in the morning (EYE-BANQUET SET UP PERSON) to steady your nerves or to get [...] Support [facility] [address] [place] [phone] 03/15/2025 4:00 PM EST Office Visit [facility] Hematology/BMT and Cellular Therapy Program [address] [place] [phone] Parth Fitzgerald MD [address] [place] [address] 03/28/2025 1:40 PM EST Office Visit [facility] [address] [facility]. [address] [place] [phone] Duglas Greer MD [address] [place] [phone] 07/18/2025 1:40 PM EDT Office Visit [facility] [address] [place] [address] Diana Alonzo, JAMAL [address] [place] [address] Health Maintenance Due Date Last [...] 08/24/2016 08/24/2006, 12/08/1998, 02/06/1996, Additional history exists [id number] Vaccine (3 - 2024- season) 2024 01/23/2021, 06/11/2020 [facility]-Influenza Vaccine (#1) 11/05/202403/09, 12/20/2019, 11/24/2018, Additional history exists [facility]- SDOH Screenings 08/07/2025 [facility]-Adult SDOH Screenings 08/07/2025 02/06/2025 [facility]-Depression Screening 02/21/2026 02/21/2025, 02/04 [facility]-HIB Vaccines Completed 02/06/1996, , 03/22/1995 [facility]-IPV Vaccines Completed 09/17/1998, , 03/22/1995 [facility]-HIV Screening Completed 02/10/2024, 01/03/2015 [facility]-Obesity Intervention Completed 025, 02/05/2025, 02/04/2025, Additional history exists HPV Vaccines (No Doses [...] LAB HEMATOLOGY METHOD 02/22/2025 1:37 PM EST [facility] RBC Count 3.11(L) 4.60 - 6.10 10*6/uL LAB HEMATOLOGY METHOD 02/22/2025 1:37 PM EST [facility] HGB 9.0(L) 13.7 - 17.5 g/dL LAB HEMATOLOGY METHOD 02/22/2025 1:37 PM EST [facility] HCT 27.1(L) 40.0 - 51.0 % LAB HEMATOLOGY METHOD 02/22/2025 1:37 PM EST [facility] Platelet Count 474(H) 155 - 369 10*3/uL LAB HEMATOLOGY METHOD 02/22/2025 1:37 PM EST [facility] MCV 87 79 - 98 fL LAB HEMATOLOGY METHOD 02/22/2025 1:37 PM EST [facility] MCH 28.9 26.0 - 32.0 pg LAB HEMATOLOGY METHOD 02/22/2025 1:37 PM EST [facility] MCHC 33.2 30.7 - 35.5 g/dL LAB HEMATOLOGY METHOD 02/22/2025 1:37 PM EST [facility] RDW 18.3(H) 11.5 - 14.5 % LAB HEMATOLOGY METHOD 02/22/2025 1:37 PM EST [facility] MPV 8.5(L) 8.8 - 12.5 fL LAB HEMATOLOGY METHOD 02/22/2025 1:37 PM EST [facility] nRBC 0.3(H) <=0.0 per 100 WBCs LAB HEMATOLOGY METHOD 02/22/2025 1:37 PM EST [facility] Differential Type Automated LAB HEMATOLOGY METHOD 02/22/2025 1:37 PM EST [facility] Neutrophils % 68 % LAB HEMATOLOGY METHOD 02/22/2025 1:37 PM EST [facility] Lymphocytes % 20 % LAB HEMATOLOGY METHOD 02/22/2025 1:37 PM EST [facility] Monocytes % 10 % LAB HEMATOLOGY METHOD 02/22/2025 1:37 PM EST [facility] Eosinophils % 1 % LAB HEMATOLOGY METHOD 02/22/2025 1:37 PM EST [facility] Basophils % 1 % LAB HEMATOLOGY METHOD 02/22/2025 1:37 PM EST [facility] Immature Granulocytes % 0 % LAB HEMATOLOGY METHOD 02/22/2025 1:37 PM EST [facility] Neutrophils Absolute 8.15(H) 1.60 - 6.10 10*3/uL LAB HEMATOLOGY METHOD 02/22/2025 1:37 PM EST [facility] Lymphocytes Absolute 2.35 1.20 - 3.90 10*3/uL LAB HEMATOLOGY METHOD 02/22/2025 1:37 PM EST [facility] Monocytes Absolute 1.19(H) 0.30 - 0.90 10*3/uL LAB HEMATOLOGY METHOD 02/22/2025 1:37 PM EST [facility] Eosinophils Absolute 0.12 0.00 - 0.50 10*3/uL LAB HEMATOLOGY METHOD 02/22/2025 1:37 PM EST [facility] Basophils Absolute 0.17(H) 0.00 - 0.10 10*3/uL LAB HEMATOLOGY METHOD 02/22/2025 1:37 PM EST [facility] Immature Granulocytes Absolute 0.04 0.00 - 0.06 10*3/uL LAB HEMATOLOGY METHOD 02/22/2025 1:37 PM EST [facility] Blood Blood sample taken from central line / Unknown (Port) Long-term Catheter / Unknown 02/22/2025 1:01 PM EST 02/22/2025 1:35 PM EST [facility] HEALTHCARE LAB - 02/22/2025 1:37 PM EST Therapeutic decision making should be based on absolute values, rather than percentages. Seema Atkinson MD LAB BLOOD ORDERABLES Final Resul t Performing Organization Address [facility] Co de Phone Number HEALTHCARE LAB [address] [place] [address] * Type and screen (02/22/2025 1:01 PM [...] ORDERABLES F inal Result Performing Organization Address [facility] de Phone Number BLOOD BANK [address] [place] [address] * Morphology (02/13/2025 2:48 AM EST) Only the most recent of9 resultswithin the time period is included. Sickle Cells Slight LAB HEMATOLOGY METHOD 02/13/2025 4:23 AM EST [facility] RBC Morphology RBC Morphology Consistent with Indices and RDW LAB HEMATOLOGY METHOD 02/13/2025 4:23 AM EST [facility] Target Cells Present LAB HEMATOLOGY METHOD 02/13/2025 4:23 AM EST [facility] Platelet Estimate Platelet smear estimate consistent with automated count LAB HEMATOLOGY METHOD 02/13/2025 4:23 AM EST [facility] Blood Venous blood specimen / Unknown Venipuncture / Unknown 02/13/2025 2:48 AM EST 02/13/2025 3:13 AM EST us Kirby Villatoro MD LAB BLOOD ORDERABLES Final Re sult Performing Organization Address City/[facility]/ZIP Co de Phone Number [facility] [address] [place] [address] * Transfuse RBC, Sickle Cell (Hgb S) [...] resultswithin the time period is included. Pathologist [facility] Product Code [id number] BLOO D BANK Dispense Status Transfused BLOOD BANK Blood Expiration Date [id number] BLOOD BANK Unit Number [id number] B LOOD BANK Product Blood Type 9500 BLOOD BANK Blood Type O- BLOOD BANK Crossmatch Compatible BLOOD BANK Other Kirby Villatoro MD BLOOD BANK PRODUCT ORDERABLES Final Result Performing Organization Address City/State/[facility] Phone Number BLOOD BANK [address] * (ABNORMAL) Comprehensive metabolic panel (02/12/2025 3:31 AM EST) Only the most recent of24 resultswithin the time period is included. Pathologist [facility] Glucose, Plasma 107(H) 74 - 99 mg/dL [...] - 16 mmol/L 02/12/2025 4:09 AM EST [facility] Total Calcium, Plasma 8.6(L) 8.9 - 10.2 mg/dL 02/12/2025 4:09 AM EST [facility] Total Protein 8.5(H) 6.3 - 7.9 g/dL 02/12/2025 4:09 AM EST [facility] Albumin, Plasma 3.6 3.5 - 5.2 g/dL 02/12/2025 4:09 AM EST [facility] AST, Plasma 51(H) 10 - 50 U/L 02/12/2025 4:09 AM EST [facility] ALT, Plasma 38 10 - 50 U/L 02/12/2025 4:09 AM EST [facility] Alkaline Phosphatase, Plasma 95 40 - 115 U/L 02/12/2025 4:09 AM EST [facility] Total Bilirubin, Plasma 1.2(H) 0.2 - 1.1 mg/dL 02/12/2025 4:09 AM EST [facility] eGFRcr 126.0 mL/min/1.7 3m*2 02/12/2025 4:09 AM EST [facility] Comment:Reported eGFRcr in m L/min/1.73m2 is based the CKD-EPI 2020 equation that does not use a race coefficient. Blood Venous blood specimen / Unknown Venipuncture / Unknown 02/12/2025 3:31 AM EST 02/12/2025 3:42 AM EST Sandy Barreto MD LAB BLOOD ORDERABLES Final Result [facility] [address] [place] [phone] * (ABNORMAL) Hemoglobin Eval w Rflx to Electrophoresis and/or RBC Solubility (SO) (02/11/2025 6:09 PMEST) Only the most recent of4 resultswithin the time period is included. Hemoglobin A 78.8(L) 95.0 - 97.9 % 02/15/2025 5:21 PM EST [facility] ([facility]) Hemoglobin A2 2.8 2.0 - 3.5 % 02/15/2025 5:21 PM EST [facility] ([facility]) Hemoglobin F 2.4(H) 0.0 - 2.1 % 02/15/2025 5:21 PM EST [facility] ([facility]) Hemoglobin S 16.0(H) 0.0 - 0.0 % 02/15/2025 5:21 PM EST [facility] ([facility]) Hemoglobin C 0.0 0.0 - 0.0 % 02/15/2025 5:21 PM EST [facility] ([facility]) Hemoglobin E 0.0 0.0 - 0.0 % 02/15/2025 5:21 PM EST [facility] ([facility]) Hemoglobin Other 0.0 0.0 - 0.0 % 02/15/2025 5:21 PM EST [facility] ([facility]) Hemoglobin Evaluation See Note 02/15/2025 5:21 PM EST [facility] ([facility]) Sickle Cell Solubility Reflex Conf Previous 02/15/2025 5:21 PM EST [facility] ([facility]) Hgb Capillary Electrophoresis Reflex Not Performed 02/15/2025 5:21 PM EST [facility] ([facility]) Blood Venous blood specimen / Unknown Venipuncture / Unknown 02/11/2025 6:09 PM EST 02/11/2025 6:15 PM EST [facility] ([facility]) - 02/15/2025 5:21 PM EST Impression: Hb [...] Globin (HBA1 and HBA2) Deletion/Duplication ([facility] test #[id number]) should be considered. Hb S/beta-plus thalassemia is typically characterized by more Hb S than Hb A with the presence of microcytosis. If microcytosis is present and Hb S/beta-plus thalassemia is suspected, Beta Globin (HBB) Sequencing ([facility] test #[id number]) is suggested. Hemoglobin analysis should be offered [...] developed and its performance characteristics determined by [employer]. It has not been cleared or approved [...] not repeated with this submission. Performed By: [facility] [address] [place] [address] Oral And Maxillofacial Surgery: Anthony Monterroso MD, PhD CLIA Number: [id number] us Sandy Barreto MD LAB REF LAB BLOOD AND FLUID ORD Final Result [facility] [address] [place] [address] * Blood Culture (Aerobic/Anaerobet Set) (02/11/2025 6:09 PM EST) Only the most recent of19 resultswithin the time period is included. Culture No growth at day 5 02/17/2025 3:[address] [facility] Blood Blood sample taken from central line / Unknown (Port) Long-term Catheter / Unknown 02/11/2025 6:09 PM EST 02/11/2025 6:15 PM EST us Sandy Barreto MD LAB MICROBIOLOGY - GENERAL ORDERABLES Final Result [facility] [address] [place] [address] * IR Tunneled CVC Replacement Complete (02/11/2025 [...] CENTRAL VENOUS CATHETER CLINICAL INDICATION: Flipped powerline REGIONAL BUSINESS MANAGER: AMISH ROSALES M.D. SECONDARY FISHING VESSEL DECKHAND: N/A FLUORO TIME: 3.4 minutes MEDICATIONS: Conscious [...] existing tunneled powerline catheter. The existing 5 Emirati tunneled by line catheter was removed over the wire. A new 5 Emirati 25 cm tip to cuff tunneled power [...] TUNNELED CENTRAL VENOUSCATHETER CLINICAL INDICATION: Flipped powerline REGIONAL BUSINESS MANAGER: AMISH ROSALES M.D. SECONDARY FISHING VESSEL DECKHAND: N/A FLUORO TIME: 3.4 minutes MEDICATIONS: Conscious [...] Sedation Start and Stop EventTime In Sedation [id number] Sedation [id number] TECHNIQUE: After discussion of risks and benefits, [...] the existing tunneled powerline catheter. Theexisting 5 Emirati tunneled by line catheter was removed over the wire. Anew 5 [place] 25 cm tip to cuff tunneled power [...] LAB HEMATOLOGY METHOD 02/11/2025 3:49 AM EST [facility] RBC Count 2.42(L) 4.60 - 6.10 10*6/uL LAB HEMATOLOGY METHOD 02/11/2025 3:49 AM EST [facility] HGB 7.1(L) 13.7 - 17.5 g/dL LAB HEMATOLOGY METHOD 02/11/2025 3:49 AM EST [facility] HCT 21.0(L) 40.0 - 51.0 % LAB HEMATOLOGY METHOD 02/11/2025 3:49 AM EST [facility] Platelet Count 446(H) 155 - 369 10*3/uL LAB HEMATOLOGY METHOD 02/11/2025 3:49 AM EST [facility] MCV 87 79 - 98 fL LAB HEMATOLOGY METHOD 02/11/2025 3:49 AM EST [facility] MCH 29.3 26.0 - 32.0 pg LAB HEMATOLOGY METHOD 02/11/2025 3:49 AM EST [facility] MCHC 33.8 30.7 - 35.5 g/dL LAB HEMATOLOGY METHOD 02/11/2025 3:49 AM EST [facility] RDW 18.3(H) 11.5 - 14.5 % LAB HEMATOLOGY METHOD 02/11/2025 3:49 AM EST [facility] MPV 8.6(L) 8.8 - 12.5 fL LAB HEMATOLOGY METHOD 02/11/2025 3:49 AM EST [facility] nRBC 0.8(H) <=0.0 per 100 WBCs LAB HEMATOLOGY METHOD 02/11/2025 3:49 AM EST [facility] Blood Venous blood specimen / Unknown Venipuncture / Unknown 02/11/2025 3:33 AM EST 02/11/2025 3:47 AM EST us Sandy Barreto MD LAB BLOOD ORDERABLES Final Result [facility] [address] [place] [address] * (ABNORMAL) Nasopharyngeal Respiratory Panel (02/10/2025 5:38 PM EST) Only the most recent of3 resultswithin the time period is included. Human Rhinovirus/Ent erovirus PCR Result Detected( A) Not Detected 02/10/2025 10:[address] [facility] Swab Nasopharyngeal structure / Unknown Non-blood Collection / Unknown 02/10/2025 5:38 PM EST 02/10/2025 5:[address] [facility] - 02/10/2025 10:20 PM [...] Respiratory PCR Panel is performed using the [employer] ePlex instrument. This test is FDA approved for use with Nasopharyngeal swabs only. This test is used for clinical purposes. It should not be regarded as investigational or for research. [facility] is certified under the Clinical Laboratory Improvement Amendments of 1988 (CLIA-88) as qualified to perform high complexity clinical laboratory testing. Sandy Barreto MD LAB MICROBIOLOGY - GENERAL ORDERABLES Final Result Performing Organization Address [facility] Co de Phone Number [facility] [address] [place] [id number] * Vancomycin, Peak, Plasma Please draw ~2 hours after 1300 dose of vancomycin finishes infusing. Consider obtaining level via peripheral stick. If peripheral stick is not feasible, please ensure that line is flushed well prior to drawing level. Than... (02/10/2025 4:07 PM EST) Vancomycin, Peak, Plasma 27.7 20.0 - 40.0 ug/mL 02/10/2025 4:45 PM EST [facility] Blood Venous blood specimen / Unknown Venipuncture / Unknown 02/10/2025 4:07 PM EST 02/10/2025 4:13 PM EST Narrative [facility] - 02/10/2025 4:45 PM EST Therapeutic Peak level: 20-40ug/mL Supra-therapeutic Peak level: >40 ug/mL Sandy Barreto MD LAB BLOOD ORDERABLES Final Result Performing Organization Address [facility] Co de Phone Number [facility] [address] [place] [address] * Streptococcus pneumoniae and Legionella Urinary Antigen (02/10/2025 1:35 PM EST) Only the most recent of2 resultswithin the time period is included. Legionella pneumophila serogroup 1 Antigen Result (Urine) Negative Negative 02/11/2025 7:[address] [facility] Streptococcus pneumoniae Antigen Result (Urine) Negative Negative 02/11/2025 7:51 AM EST [facility] Urine Urine specimen obtained by clean catch procedure / Unknown Non-blood Collection / Unknown 02/10/2025 1:35 PM EST 02/10/2025 2:09 PM EST Sandy Barreto MD LAB MICROBIOLOGY - GENERAL ORDERABLES Final Result Performing Organization Address City/[facility] Co de Phone Number [facility] [address] [place] [address] * Urine Hernandez Panel (02/10/2025 1:35 PM EST) Only the most recent of3 resultswithin the time period is included. Extra Reflex urine culture not indicated 02/10/2025 11:01 PM EST [facility] Comment: Previously prelim verified as Specimen [...] URINE ORDERABLES Final Result Performing Organization Address City/[facility] Co de Phone Number [facility] [address] [place] [address] * (ABNORMAL) Urinalysis with reflex microscopic (Culture NOT Included) (02/10/2025 1:35 PM EST) Only the most recent of3 resultswithin the time period is included. Color, Urine Yellow LAB URINALYSIS - AUTOMATED METHOD 02/10/2025 2:14 PM EST [facility] Clarity, Urine Clear LAB URINALYSIS - AUTOMATED METHOD 02/10/2025 2:14 PM EST [facility] Spec [place], Urine >1.030(H) 1.005 - 1.030 LAB URINALYSIS - AUTOMATED METHOD 02/10/2025 2:14 PM EST [facility] pH, Urine 7.0 5.0 - 8.0 LAB URINALYSIS - AUTOMATED METHOD 02/10/2025 2:14 PM EST [facility] Protein, Urine Trace(A) Negative mg/dL LAB URINALYSIS - AUTOMATED METHOD 02/10/2025 2:14 PM EST [facility] Glucose, Urine Negative Negative mg/dL LAB URINALYSIS - AUTOMATED METHOD 02/10/2025 2:14 PM EST [facility] Ketones, Urine Negative Negative mg/dL LAB URINALYSIS - AUTOMATED METHOD 02/10/2025 2:14 PM EST [facility] Blood, Urine Negative Negative LAB URINALYSIS - AUTOMATED METHOD 02/10/2025 2:14 PM EST [facility] Bilirubin, Urine Negative Negative LAB URINALYSIS - AUTOMATED METHOD 02/10/2025 2:14 PM [facility] Urobilinogen, Urine 0.2 0.2 to 1.0 mg/dL LAB URINALYSIS - AUTOMATED METHOD 02/10/2025 2:14 PM [facility] Leukocytes, Urine Negative Negative LAB URINALYSIS - AUTOMATED METHOD 02/10/2025 2:14 PM [facility] Nitrite, Urine Negative Negative LAB URINALYSIS - AUTOMATED METHOD 02/10/2025 2:14 PM [facility] Urine Urine specimen obtained by clean catch procedure / Unknown Non-blood Collection / Unknown 02/10/2025 1:35 PM EST 02/10/2025 2:06 PM EST Sandy Barreto MD LAB URINE ORDERABLES Final Result [facility] [address] [place] [address] * Vancomycin, Trough, Plasma Please draw ~30 [...] BLOOD ORDERABLES Final Result [facility] [address] [place] [address] * CT Abdomen Pelvis w IV Contrast [...] AA) Not Detected 02/10/2025 2:[address] [facility] CTXM Result Detected( AA) Not Detected 02/10/2025 2:[address] [facility] Blood Venous blood specimen / Unknown Venipuncture / Unknown 02/09/2025 4:20 PM EST 02/09/2025 4:[address] [facility] - 02/10/2025 2:35 PM [...] MICROBIOLOGY - GENERAL ORDERABLES Final Result [facility] [address] [place] [address] * XR Chest 1 View (02/09/2025 11:21 [...] - 10.2 mg/dL 02/09/2025 6:11 AM EST [facility] eGFRcr 94.7 mL/min/1.7 3m*2 02/09/2025 6:11 AM EST [facility] Comment:Reported eGFRcr in m L/min/1.73m2 is based the CKD-EPI 2020 equation that does not use a race coefficient. Blood Venous blood specimen / Unknown Venipuncture / Unknown 02/09/2025 5:41 AM EST 02/09/2025 5:49 AM EST Sandy Barreto MD LAB BLOOD ORDERABLES Final Result Performing Organization Address City/[facility]/ZIP Co de Phone Number [facility] [address] [place] [address] * Magnesium (02/07/2025 1:50 AM EST) Only the most recent of15 resultswithin the time period is included. Magnesium, Plasma 1.9 1.9 - 2.4 mg/dL 02/07/2025 3:44 AM EST [facility] Blood Venous blood specimen / Unknown Venipuncture / Unknown 02/07/2025 1:50 AM EST 02/07/2025 3:09 AM EST Sandy Barreto MD LAB BLOOD ORDERABLES Final Result [facility] [address] [place] [address] * ECHO, ADULT TRANSTHORACIC LIMITED (02/06/2025 3:10 [...] mean PAP 21 mmHg LISSETTE ISCV PA WY(ACCEL) 20.5 mmHg LISSETTE ISCV LVLs ap2 6.9 [...] LAB HEMATOLOGY METHOD 02/06/2025 4:16 AM EST [facility] Immature Reticulocyte Fraction 12.6 3.1 - 17.6 % LAB HEMATOLOGY METHOD 02/06/2025 4:16 AM EST [facility] Reticulocyte Hemoglobin 33.5 28 - 38 pg LAB HEMATOLOGY METHOD 02/06/2025 4:16 AM EST [facility] Reticulocyte Count 5.80(H) 0.90 - 2.50 % LAB HEMATOLOGY METHOD 02/06/2025 4:16 AM EST [facility] Blood Venous blood specimen / Unknown Venipuncture / Unknown 02/06/2025 3:21 AM EST 02/06/2025 3:26 AM EST Sandy Barreto MD LAB BLOOD ORDERABLES Final Result Performing Organization Address City/[facility] Co de Phone Number [facility] [address] [place] [address] * Schistocyte Smear (02/05/2025 9:23 PM EST) Schistocytes No Significant Schistocytes or RBC Fragments seen. No Significant Schistocytes or RBC Fragments seen. LAB HEMATOLOGY METHOD 10:46 PM EST [facility] RBC Morphology Slide Reviewed LAB HEMATOLOGY METHOD 10:46 PM EST [facility] Blood Venous blood specimen / Unknown Venipuncture / Unknown 02/05/2025 9:23 PM EST 02/05/2025 10:19 PM EST Sandy Barreto MD LAB BLOOD ORDERABLES Final Result Performing Organization Address City/[facility]/ZIP Co de Phone Number [facility] [address] [place] [address] * Multi Drug Resistance Test (02/05/2025 7:39 PM EST) Only the most recent of3 resultswithin the time period is included. [facility] Culture No growth at day 1 02/07/2025 7:18 PM EST [facility] Swab (Nares and Venecia Rectal) Non-blood Collection / Unknown 02/05/2025 7:39 PM EST 02/05/2025 7:[address] [facility] - 02/07/2025 7:18 PM EST This test was developed and its performance characteristics determined by the [facility]. Although the media is FDA-approved, it is not FDA-approved for all specimen types submitted. The FDA has determined that such clearance or approval is not necessary. This test is used for surveillance purposes. It should not be regarded as investigational or for research. The [facility] is certified under the Clinical Laboratory Improvement Amendments of 1988 (CLIA-88) as qualified to perform high complexity clinical laboratory testing. Sandy Barreto MD LAB MICROBIOLOGY - GENERAL ORDERABLES Final Result Performing Organization Address City/[facility] Co de Phone Number [facility] [address] [place] [address] * Troponin T, High Sensitivity, 2 Hour, Plasma (02/05/2025 5:31 PM EST) Only the most recent of3 resultswithin the time period is included. [facility] Troponin T, High Sensitivity, 2 Hour <6 <19 ng/L 02/05/2025 5:54 PM EST [facility] Blood Venous blood specimen / Unknown Venipuncture / Unknown 02/05/2025 5:31 PM EST 02/05/2025 5:34 PM EST us Jayne BERRY LAB BLOOD ORDERABLES Final Resul t Performing Organization Address City/[facility] Co de Phone Number [facility] [address] [place] [address] * (ABNORMAL) C-reactive protein (02/05/2025 5:31 PM EST) Only the most recent of4 resultswithin the time period is included. [facility] CRP, Plasma 57.6(H) <=8.0 mg/L 02/05/2025 6:43 [...] ORDERABLES Final Result [facility] [address] [place] [address] * CT Lumbar Spine wo IV Contrast [...] Detected Not Detected 02/05/2025 4:57 PM EST [facility] Comment:For In Vitro Diagnos tic Use Influenza A Virus PCR Result Not Detected Not Detected 02/05/2025 4:57 PM EST [facility] Comment:For In Vitro Diagnos tic Use Influenza B Virus PCR Result Not Detected Not Detected 02/05/2025 4:57 PM EST [facility] Comment:For In Vitro Diagnos tic Use Swab Nasopharyngeal structure / Unknown Non-blood Collection / Unknown 02/05/2025 4:25 PM EST 02/05/2025 4:29 PM EST Narrative [facility] - 02/05/2025 4:57 PM EST This [...] MICROBIOLOGY - GENERAL ORDER DEE Final Result [facility] [address] [place] [address] * Troponin now and 120 min (02/05/2025 2:57 PM EST) Only the most recent of3 resultswithin the time period is included. [facility] Troponin T, High Sensitivity, 0 Hour <6 <19 ng/L 02/05/2025 3:38 PM EST [facility] Blood Venous blood specimen / Unknown Venipuncture / Unknown 02/05/2025 2:57 PM EST 02/05/2025 3:08 PM EST us Jayne BERRY LAB BLOOD ORDERABLES Final Resul t [facility] [address] [place] [address] * (ABNORMAL) Bacterial ID Gram Positive (02/05/2025 2:57 PM EST) Only the most recent of5 resultswithin the time period is included. Pathologist [facility] Streptococcus Result Detected( AA) Not Detected 02/06/2025 2:[address] [facility] [place] Gram Negative Result Detected( AA) Not Detected 02/06/2025 2:[address] [facility] Blood Venous blood specimen / Unknown Venipuncture / Unknown 02/05/2025 2:57 PM EST 02/05/2025 3:[address] [facility] - 02/06/2025 2:19 PM [...] ORDER DEE Final Result Performing Organization Address City/[facility]/ZIP Co de Phone Number [facility] [address] [place] [address] * (ABNORMAL) Creatine Kinase (CK), Total (02/05/2025 2:57 PM EST) Only the most recent of5 resultswithin the time period is included. Creatine Kinase, Plasma 12(L) 49 - 320 U/L 02/05/2025 4:04 PM EST [facility] Blood Venous blood specimen / Unknown Venipuncture / Unknown 02/05/2025 2:57 PM EST 02/05/2025 3:08 PM EST us Jayne BERRY LAB BLOOD ORDERABLES Final Resul t Performing Organization Address [facility] Co de Phone Number [facility] [address] [place] [address] * (ABNORMAL) Procalcitonin (02/05/2025 2:57 PM EST) Only the most recent of4 resultswithin the time period is included. Procalcitonin, Plasma 10.41(H) <0.09 ng/mL 02/05/2025 4:43 PM EST [facility] Blood Venous blood specimen / Unknown Venipuncture / Unknown 02/05/2025 2:57 PM EST 02/05/2025 3:08 PM EST Narrative [facility] - 02/05/2025 4:43 PM EST Procalcitonin [...] predict 28 day mortality risk. Please consult [email or web address] for more information. Test performed at [facility]. us Jayne BERRY LAB BLOOD ORDERABLES Final Resul t Performing Organization Address City/[facility] de Phone Number [facility] [address] [place] [address] * (ABNORMAL) PT-INR (02/05/2025 2:57 PM EST) [...] INR 2.5 to 3.5 Prevention of recurrent [place] INR 2.5 to 3.5 us Jayne BERRY LAB BLOOD ORDERABLES Final Resul t Performing Organization Address [facility] Phone Number [facility] [address] [place] [address] * Phosphorus (02/05/2025 2:57 PM EST) Only the most recent of9 resultswithin the time period is included. Phosphorus, Plasma 3.7 2.5 - 4.5 mg/dL 02/05/2025 3:38 PM EST [facility] Blood Venous blood specimen / Unknown Venipuncture / Unknown 02/05/2025 2:57 PM EST 02/05/2025 3:08 PM EST us Jayne BERRY LAB BLOOD ORDERABLES Final Resul t Performing Organization Address City/[facility]/ZIP Co de Phone Number [facility] [address] [place] [address] * (ABNORMAL) Lipase (02/05/2025 2:57 PM EST) Lipase, Plasma 15(L) 19 - 63 U/L 02/05/2025 3:38 PM EST [facility] Blood Venous blood specimen / Unknown Venipuncture / Unknown 02/05/2025 2:57 PM EST 02/05/2025 3:08 PM EST us Jayne BERRY LAB BLOOD ORDERABLES Final Resul t [facility] [address] [place] [address] * (ABNORMAL) Blood gas panel, venous (02/05/2025 2:57 PM EST) Only the most recent of3 resultswithin the time period is included. pH, Venous 7.34 7.32 - 7.43 LAB HEMATOLOGY METHOD 02/05/2025 3:10 PM EST [facility] pCO2, Venous 45 40 - 55 mmHg LAB HEMATOLOGY METHOD 02/05/2025 3:10 PM EST [facility] pO2, Venous 35 25 - 40 mmHg LAB HEMATOLOGY METHOD 02/05/2025 3:10 PM EST [facility] SO2, Measured, Venous 62(L) 65 - 80 % LAB HEMATOLOGY METHOD 02/05/2025 3:10 PM EST [facility] Base Excess, Venous -1.7 -2.0 - 3.0 mmol/L LAB HEMATOLOGY METHOD 02/05/2025 3:10 PM EST [facility] Bicarbonate, Calculated, Venous 24 22 - 26 mmol/L LAB HEMATOLOGY METHOD 02/05/2025 3:10 PM EST [facility] Hematocrit, Whole Blood 26.3(L) 40.0 - 51.0 % LAB HEMATOLOGY METHOD 02/05/2025 3:10 PM EST [facility] Sodium, Whole Blood 140 136 - 145 mmol/L LAB HEMATOLOGY METHOD 02/05/2025 3:10 PM EST [facility] Potassium, Whole Blood 3.8 3.6 - 4.9 mmol/L LAB HEMATOLOGY METHOD 02/05/2025 3:10 PM EST [facility] Chloride, Whole Blood 106 97 - 107 mmol/L LAB HEMATOLOGY METHOD 02/05/2025 3:10 PM EST [facility] Glucose, Whole Blood 87 74 - 99 mg/dL LAB HEMATOLOGY METHOD 02/05/2025 3:10 PM EST [facility] Lactate, Venous, Whole Blood 0.6 0.5 - 2.2 mmol/L LAB HEMATOLOGY METHOD 02/05/2025 3:10 PM EST [facility] Ionized Calcium, Whole Blood 4.7 4.6 - 5.1 mg/dL LAB HEMATOLOGY METHOD 02/05/2025 3:10 PM EST [facility] Blood Venous blood specimen / Unknown Venipuncture / Unknown 02/05/2025 2:57 PM EST 02/05/2025 3:07 PM EST us Jayne BERRY LAB BLOOD ORDERABLES Final Resul t Performing Organization Address City/[facility]/ZIP Co de Phone Number [facility] [address] [place] [address] * ECG Adult (02/05/2025 2:41 PM EST) Only the most recent of5 resultswithin the time period is included. EKG DIAGNOSIS CLASS Abnormal MUSE ECG Ventricular Rate 97 BPM MUSE ECG Atrial Rate 97 BPM MUSE ECG WY Interval 136 ms MUSE ECG QRSD Interval 74 ms MUSE ECG QT Interval 370 ms MUSE ECG QTC Interval 469 ms MUSE ECG P [place] 59 degrees MUSE ECG R [place] 82 degrees MUSE ECG T Wave [place] 66 degrees MUSE ECG Diagnosis Normal sinus rhythm MUSE ECG Diagnosis Nonspecific T wave abnormality MUSE ECG Diagnosis Abnormal ECG MUSE ECG Diagnosis MUSE ECG Diagnosis Confirmed by Kirby Jones ([id number]) on 02/05/2025 4:56:32 PM MUSE ECG 02/05/2025 [...] resultswithin the time period is included. Pathologist [facility] Hepatitis C Virus (HCV) Quantitative Interpretation Not Detected Not Detected. 02/01/2025 1:51 PM EST [facility] Blood Blood sample taken from central line / Unknown (Central Line) Existing Catheter / Unknown 01/30/2025 2:47 PM EST 01/30/2025 2:[address] [facility] - 02/01/2025 1:51 PM [...] FDA approved for clinical use. Rod Balbuena UTILITY BILL COMPLAINTS INVESTIGATOR, DNP LAB BLOOD ORDERABLES Fi nal Result [facility] [address] [place] [address] * (ABNORMAL) Lactate dehydrogenase (01/29/2025 2:45 AM EST) Only the most recent of8 resultswithin the time period is included. Pathologist [facility] LDH, Plasma 462(H) 116 - 250 U/L 01/29/2025 3:30 AM EST [facility] Comment:Hemolyzed, result ma y be falsely increased. Blood Venous blood specimen / Unknown Venipuncture / Unknown 01/29/2025 2:45 AM EST 01/29/2025 2:51 AM EST Chris Aguero PA LAB BLOOD ORDERABLES Final Result Performing Organization Address City/[facility]/ZIP Co de Phone Number [facility] [address] [place] [address] * (ABNORMAL) Haptoglobin (01/29/2025 2:45 AM EST) Only the most recent of6 resultswithin the time period is included. Pathologist [facility] Haptoglobin, Serum <10(L) 40 - 219 mg/dL 01/29/2025 3:59 AM EST [facility] Blood Venous blood specimen / Unknown Venipuncture / Unknown 01/29/2025 2:45 AM EST 01/29/2025 2:51 AM EST Chris BERRY LAB BLOOD ORDERABLES Final Result Performing Organization Address [facility] Co de Phone Number [facility] [address] [place] [address] * ECHO, ADULT TRANSTHORACIC LIMITED (01/28/2025 12:43 PM EST) [facility] BSA 2.00 m2 LISSETTE ISCV Height 177.8 [...] instead of a single lumen line. TECHNIQUE: [employer]: [employer] Production Worker: Lazaro Medications: IV conscious sedation with continuous [...] dilated the tract at 6 and 8 Emirati. Through the dilator, we then removed the [...] instead of a single lumen line. TECHNIQUE: [employer]: [employer] Worker: Lazaro Medications: IV conscious sedation with continuous physiologic monitoringprovided by a qualified healthcare professional using Versed IV andDilaudid IV. Benadryl 50 mg IV. 1% Lidocaine SQ. Antibiotics: Per nursing record. Duration of Conscious Sedation: Sedation [id number] Sedation [id number] Procedure: After discussion of risks and benefits [...] dilated the tract at 6 and 8 [place]. Through the dilator, riri removed the 0.035 [...] MD on 01/28/2025 9:48 AM Ileana Mayen UTILITY BILL COMPLAINTS INVESTIGATOR IMG IR PROCEDURES Final Result * Light [...] ORDERABLES Fin al Result Performing Organization Address City/[facility]/ZIP Co de Phone Number [facility] [address] [place] [address] * (ABNORMAL) N-Terminal Probnp (01/25/2025 8:52 AM EST) N-Terminal, PROBNP, Plasma 2,484(H) 0 - 449 pg/mL 01/25/2025 7:20 PM EST [facility] Blood Venous blood specimen / Unknown Venipuncture / Unknown 01/25/2025 8:52 AM EST 01/25/2025 9:01 AM EST Chris BERRY LAB BLOOD ORDERABLES Final Result Performing Organization Address City/[facility]/ZIP Co de Phone Number [facility] [address] [place] [address] * (ABNORMAL) Bilirubin, direct (01/25/2025 8:52 AM EST) Only the most recent of2 resultswithin the time period is included. Direct Bilirubin, Plasma 0.8(H) <=0.3 mg/dL 01/25/2025 11:56 AM EST [facility] Blood Venous blood specimen / Unknown Venipuncture / Unknown 01/25/2025 8:52 AM EST 01/25/2025 9:01 AM EST us Chris Aguero PA LAB BLOOD ORDERABLES Final Result [facility] [address] [place] [address] * CT Angio Pulmonary Embolism (01/23/2025 12:34 [...] Brea Rivera MD on 01/25/2025 11:32 AM us Chris BERRY IMG CT PROCEDURES Final Re sult * (ABNORMAL) Comprehensive Urine Drug Screening, Qualitative Assay, >= 27 Drug Classes (1:36 AM EST) Acetaminophen Positive(A) Negative 01/25/2025 9:[address] [facility] Alprazolam Negative Negative 01/25/2025 9:[address] [facility] Amantadine Negative Negative 01/25/2025 9:[address] [facility] Amitriptyline Negative Negative 01/25/2025 9:[address] [facility] Amphetamine Negative Negative 01/25/2025 9:[address] [facility] Atenolol Negative Negative 01/25/2025 9:[address] [facility] Benzoylecgonine Negative Negative 9:[address] [facility] Bisoprolol Negative Negative 01/25/2025 9:[address] [facility] Bupropion Negative Negative 01/25/2025 9:[address] [facility] Butalbital Negative Negative 01/25/2025 9:[address] [facility] Carbamazepine Negative Negative 01/25/2025 9:[address] [facility] Carisoprodol Negative Negative 01/25/2025 9:17 AM EST [facility] Chlorpheniramine Negative Negative 01/26/20 9:17 AM EST [facility] Citalopram Negative Negative 01/25/2025 9:17 AM EST [facility] Clindamycin Negative Negative 01/25/2025 9:17 AM EST [facility] Clonidine Negative Negative 01/25/2025 9:17 AM EST [facility] Clopidogrel / Ticlopidine Negative Negative 01/25/2025 9:17 AM EST [facility] Cocaethylene Negative Negative 01/25/2025 9:[address] [facility] Cocaine Negative Negative 01/25/2025 9:[address] [facility] Codeine Negative Negative 01/25/2025 9:[address] [facility] Cyclobenzaprine Negative Negative 9:[address] [facility] Desvenlafaxine Negative Negative 01/25/2025 9:[address] [facility] Dextromethorphan Negative Negative 01/26/20 9:[address] [facility] Diazepam Negative Negative 01/25/2025 9:[address] [facility] Diltiazem Negative Negative 01/25/2025 9:[address] [facility] Diphenhydramine Negative Negative 9:[address] [facility] Doxepine Negative Negative 01/25/2025 9:[address] [facility] Doxylamine Negative Negative 01/25/2025 9:[address] [facility] EDDP-Methadone metabolite Negative Negative 01/25/2025 9:[address] [facility] Fentanyl Negative Negative 01/25/2025 9:[address] [facility] Fluconazole Negative Negative 01/25/2025 9:[address] [facility] Fluoxetine Negative Negative 01/25/2025 9:[address] [facility] Guaifenesin Positive(A) Negative 01/25/2025 9:[address] [facility] Haloperidol Negative Negative 01/25/2025 9:[address] [facility] Heroin/6-VICKIE Negative Negative 01/25/2025 9:17 AM EST [facility] Hydrocodone Negative Negative 01/25/2025 9:17 AM EST [facility] Hydroxyzine / Cetirizine metabolite Negative Negative 01/25/2025 9:17 AM EST [facility] Ibuprofen Negative Negative 01/25/2025 9:17 AM EST [facility] Imipramine Negative Negative 01/25/2025 9:17 AM EST [facility] Ketamine Negative Negative 01/25/2025 9:17 AM EST [facility] Labetolol Negative Negative 01/25/2025 9:17 AM EST [facility] Lamotrigine Negative Negative 01/25/2025 9:17 AM EST [facility] Levetiracetam Negative Negative 01/25/2025 9:[address] [facility] Lidocaine Negative Negative 01/25/2025 9:[address] [facility] MDA Negative Negative 01/25/2025 9:[address] [facility] MDMA Negative Negative 01/25/2025 9:[address] [facility] Memantine Negative Negative 01/25/2025 9:[address] [facility] Meperidine Negative Negative 01/25/2025 9:[address] [facility] Meprobamate Negative Negative 01/25/2025 9:[address] [facility] Metaxalone Negative Negative 01/25/2025 9:[address] [facility] Methamphetamine Negative Negative 9:17 AM EST [facility] Methocarbamol Positive(A) Negative 01/25/2025 9:17 AM EST [facility] Methylecgonine Negative Negative 01/25/2025 9:17 AM EST [facility] Metoclopramide Negative Negative 01/25/2025 9:17 AM EST [facility] Metoprolol Negative Negative 01/25/2025 9:17 AM EST [facility] Metronidazole Negative Negative 01/25/2025 9:17 AM EST [facility] Midazolam Negative Negative 01/25/2025 9:17 AM EST [facility] Midazolam Metabolite Negative Negative 01/25/2025 9:17 AM EST [facility] Mirtazapine Negative Negative 01/25/2025 9:17 AM EST [facility] Misc Test Result Negative Negative 01/26/20 9:17 AM EST [facility] Naproxen Negative Negative 01/25/2025 9:17 AM EST [facility] Nefazodone Negative Negative 01/25/2025 9:17 AM EST [facility] Norfentanyl Negative Negative 01/25/2025 9:17 AM EST [facility] Nortriptyline Negative Negative 01/25/2025 9:17 AM EST [facility] Ordanstron Negative Negative 01/25/2025 9:17 AM EST [facility] Oxcarbazepine Negative Negative 01/25/2025 9:17 AM EST [facility] Oxycodone Positive(A) Negative 01/25/2025 9:[address] [facility] Paroxethine Negative Negative 01/25/2025 9:[address] [facility] Phenobarbital Negative Negative 01/25/2025 9:17 AM EST [facility] Phentermine Negative Negative 01/25/2025 9:[address] [facility] Phenytoin Negative Negative 01/25/2025 9:17 AM EST [facility] Primidone Negative Negative 01/25/2025 9:17 AM EST [facility] Promethazine Negative Negative 01/25/2025 9:[address] [facility] Propofol Negative Negative 01/25/2025 9:17 AM EST [facility] Propranolol Negative Negative 01/25/2025 9:17 AM EST [facility] Quetiapine Negative Negative 01/25/2025 9:17 AM EST [facility] Quinine Negative Negative 01/25/2025 9:17 AM EST [facility] Rantidine Negative Negative 01/25/2025 9:17 AM EST [facility] Sertraline Negative Negative 01/25/2025 9:17 AM EST [facility] Spironolactone Negative Negative 01/25/2025 9:17 AM EST [facility] Tizanidine Negative Negative 01/25/2025 9:17 AM EST [facility] Topiramate Negative Negative 01/25/2025 9:17 AM EST [facility] Tramadol Negative Negative 01/25/2025 9:[address] [facility] Trazadone/ Trazadone metabolite Negative Negative 01/25/2025 9:[address] [facility] Trimethoprim Negative Negative 01/25/2025 9:[address] [facility] Valproic Acid Negative Negative 01/25/2025 9:[address] [facility] Venlafaxine Negative Negative 01/25/2025 9:[address] [facility] Verapamil Negative Negative 01/25/2025 9:[address] [facility] Zolpidem Negative Negative 01/25/2025 9:[address] [facility] Xylazine Negative Negative 01/25/2025 9:[address] [facility] Urine Urine specimen obtained by clean catch procedure / Unknown Non-blood Collection / Unknown 01/23/2025 11:36 AM EST 01/23/2025 11:44 AM EST us Chris BERRY LAB URINE ORDERABLES Final Result Performing Organization Address City/State/[facility] Co de Phone Number [facility] [address] [place] [address] * PERIPHERAL IV (SMARTFORM LINK) (01/22/2025 2:10 [...] Root Diam 35 mm LISSETTE ISCV PA WY(ACCEL) 34.9 mmHg LISSETTE ISCV LVLs ap2 8.4 [...] Culture Light Growth 01/23/2025 10:[address] [facility] Culture Mixed upper respiratory sharon(A) 01/23/2025 10:[address] [facility] Comment:The organism value f or this result has been updated. These results have been appended to the previously preliminary verified report. Gram Stain Result Fewer than 10 Epithelial cells/LPF(A) 01/23/2025 10:[address] [facility] Gram Stain Result Fewer than 25 WBC/LPF(A) 01/23/2025 10:[address] [facility] Gram Stain Result Few Budding yeast(A) 01/23/2025 10:[address] [facility] Sputum Coughed sputum specimen / Unknown Non-blood Collection / Unknown 01/21/2025 2:49 AM EST 01/21/2025 3:18 AM EST us Carleen BERRY LAB MICROBIOLOGY - GENERAL ORD ERABLES Final Result [facility] [address] [place] [address] * (ABNORMAL) POCT glucose meter (01/20/2025 2:57 PM EST) POCT Glucose 133(H) 74 - 99 mg/dL 01/20/2025 2:59 PM EST [facility] Comment:Accuracy of a glucos e result [...] Comment 01/20/2025 2:59 PM EST [facility] Wafer Production Worker ID Jimena Islas 01/20/2025 2:59 PM EST [facility] Device ID [id number] 01/20/2025 2:59 PM EST [facility] Specimen Type POC Capillary 01/20/2025 2:59 PM EST [facility] Blood Capillary blood specimen / Unknown 01/20/2025 2:57 PM EST 01/20/2025 2:59 PM EST us Janette Herrera MD LAB POINT OF CARE TE ST DOCKED DEVICE UNSOLICITED RESULTS Final Result Performing Organization Address City/[facility]/ZIP Co de Phone Number [facility] [address] [place] [address] * Lactate, venous (01/20/2025 11:17 AM EST) Lactate, Venous, Whole Blood 1.6 0.5 - 2.2 mmol/L LAB HEMATOLOGY METHOD 01/20/2025 11:28 AM EST [facility] Blood Venous blood specimen / Unknown Venipuncture / Unknown 01/20/2025 11:17 AM EST 01/20/2025 11:26 AM EST us Carleen BERRY LAB BLOOD ORDERABLES Final Res ult Performing Organization Address City/[facility]/ZIP Co de Phone Number [facility] [address] [place] [address] * (ABNORMAL) Iron & Total Iron Binding Capacity, Plasma (Includes Transferrin) (01/19/2025 3:54 PM EST) Iron, Plasma 104 50 - 170 ug/dL 01/19/2025 8:[address] [facility] Transferrin, Plasma 131(L) 200 - 360 mg/dL 01/19/2025 8:[address] [facility] Total Iron Binding Capacity, Plasma 164(L) 240 - 450 ug/mL 01/19/2025 8:[address] [facility] Transferrin Saturation 63(H) 14 - 50 % 01/19/2025 8:[address] [facility] Blood Venous blood specimen / Unknown Venipuncture / Unknown 01/19/2025 3:54 PM EST 01/19/2025 7:09 PM EST us Carleen Randolph PA LAB BLOOD ORDERABLES Final Res ult Performing Organization Address City/[facility] Co de Phone Number [facility] [address] [place] [address] * (ABNORMAL) APTT (01/18/2025 3:07 AM EST) aPTT 39(H) 25 - 35 sec 01/18/2025 3:29 AM EST [facility] Blood Venous blood specimen / Unknown Venipuncture / Unknown 01/18/2025 3:07 AM EST 01/18/2025 3:11 AM EST Suze Perez APRN LAB BLOOD ORDERABLES Final R esult Performing Organization Address [facility] de Phone Number [facility] [address] [place] [address] * Strep Screen (01/17/2025 3:20 PM EST) Pathologist [facility] A Streptococcus PCR Result Not Detected Not Detected 01/17/2025 3:52 PM EST [facility] Comment:For In Vitro Diagnos tic Use Swab Pharyngeal structure / Unknown Non-blood Collection / Unknown 01/17/2025 3:20 PM EST 01/17/2025 3:27 PM EST Jhonatan Martinez MD LAB MICROBIOLOGY - GENERAL ORDERABLES Final Result Performing Organization Address [facility] de Phone Number [facility] [address] [place] [address] * XR Chest 2 Views (01/17/2025 2:27 [...] TEST ORDERABLES Final Result BLOOD BANK [address] [place] [address], * ECHO, ADULT TRANSTHORACIC COMPLETE (01/02/2025 12:29 [...] 72 mL LISSETTE ISCV EF(MOD-bp) 62 % LISSTETE ISCV MV E Vmax 116.0 cm/s LISSETTE ISCV MV A Vmax 120.0 cm/s LISSETTE ISCV MV E/A 1.0 cm/s LISSETTE ISCV [...] Root Diam 36 mm LISSETTE ISCV PA WY(ACCEL) 25.9 mmHg LISSETTE ISCV LVLs ap2 7.1 [...] MD LAB BLOOD ORDERABLES Final Res ult [facility] [address] [place] [address] * (ABNORMAL) Hemoglobin and Hematocrit, Blood (12/18/2024 10:40 PM EDT) HGB 7.0(L) 13.7 - 17.5 g/dL LAB HEMATOLOGY METHOD 12/18/2024 11:23 PM EDT [facility] HCT 19.9(L) 40.0 - 51.0 % LAB HEMATOLOGY METHOD 12/18/2024 11:23 PM EDT [facility] Blood Venous blood specimen / Unknown Venipuncture / Unknown 12/18/2024 10:40 PM EDT 12/18/2024 11:07 PM EDT Miguelina Cummins MD LAB BLOOD ORDERABLES Fin al Result [facility] [address] [place] [address] * Urinalysis Microscopic Examination (12/17/2024 5:17 AM EDT) Urine Urine specimen obtained by clean catch procedure / Unknown Non-blood Collection / Unknown 12/17/2024 5:17 AM EDT 12/17/2024 5:23 AM EDT Alec Dill APRN LAB URINE ORDERABLES Fin al Result [facility] [address] [place] [address] * GI Fibroscan (12/10/2024 11:41 AM EDT) [...] ORDERS Fin al Result Performing Organization Address City/[facility]/ZIP Co de Phone Number [facility] * HIV 1 & 2 Antibody/Antigen Screen (02/10/2024 2:39 PM EST) HIV 1 & 2 Antibody/Antigen Screen Non Reactive Non Reactive 02/10/2024 4:[address] [facility] Comment:Screening for HIV 1 & 2 antibodies, and P24 antigen is NONREACTIVE. No confirmatory testing is required. Blood Venous blood specimen / Unknown Venipuncture / Unknown 02/10/2024 2:39 PM EST 02/10/2024 3:30 PM EST us Maria Teresa Gonzalez MD LAB BLOOD ORDERABLES Final Res ult 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 Source: [facility]. 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 Source: [facility]. 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 Do not resolve this infection. 02/09/2025 Insurance [facility] MEDICAID Advance Directives * Full Code (Latest [...] updated to appropriate status: Yes Care Teams Stock Fitter Relationship Specialty Start Date End Date Favian Sandy DO 12[address] [facility] [address] [place] [address] PCP - General 07/05/24 Navya Man MD [address] [address] Consulting Physician Hematology 09/28/24
--- OUTSIDE RECORDS SUMMARY | 2025-02-28 18:25 | XMS_ITS | Encounter Summary ---
Author Organization [facility] Address [address] [place] [address] Care Team Providers Care Urology Nurse Name Role Phone DuFavian Wilfrido SIU Primary Care Provider [phone] Navya Man MD Unavailable Annette Gomes RN Unavailable Unavailable Encounter Details Date Type Department Care Team (Late st Contact Info) Description 01/31/2025 Telephone [facility] [address] [place] [address] Chichi Quispe MBBS [address] [place] [address] Social History Tobacco Use Types [...] any time in the past 12 m [facility], were you homeless or living in a usp (including now)? No 01/18/2025 [facility] Utilities Answer Date Recorded In the past [...] drink first t geri in the morning (EYE-AS400 ANALYST) to steady your nerves or to get [...] Description 03/15/2025 3:30 PM EST Clinical Support [facility] Hematology/BMT and Cellular Therapy Program [address] [place] [phone] 03/15/2025 4:00 PM EST Office Visit [facility] Hematology/BMT and Cellular Therapy Program [address] [place] [phone] Parth Fitzgerald MD [address] [place], [place] [phone] 03/28/2025 1:40 PM EST Office Visit [facility] [place] [facility] 800 [facility]. [address] [place] [phone] Duglas Greer MD [address] [place] [address] 07/18/2025 1:40 PM EDT Office Visit [facility] [address] [place] [address] Diana Alonzo, PA [address] [place] [address] documented as of this encounter Visit Diagnoses Not on filedocumented in this encounter Additional Health Concerns Infection Onset Date Last Indicated Resolved Time MRSA Comment:Added from external infection. Source: [facility]. 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 Source: [facility]. 11/26/2023 02/09/2025 MDRO 08/22/2024 08/22/2024 Rhinovirus 01/17/2025 02/10/2025 Assessment Noted Time PHQ-9 Depression Total Score: 0 09/01/19 12:42 PM EDT A fall risk assessment has been complete d for the patient 09/27/2024 2:07 PM EDT A Body Mass Index follow-up plan has been documented for the patient 01/30/2025 5:06 PM EST documented as of this encounter Care Teams Urology Nurse Relationship Specialty Start Date End Date Favian Sandy DO 1210 [facility] [address] [place] [address] PCP - General 07/05/24 Navya Man MD [address] [place] [address] Consulting Physician Hematology 09/28/24 Annette Gomes RN None None Registered Nurse 01/18/25 02/27/25 documented as of this encounter
--- OUTSIDE RECORDS SUMMARY | 2025-02-28 18:25 | XMS_ITS | Encounter Summary ---
Author Organization [facility] Address [address] [place] [address] Care Team Providers Care Recovery Rn Name Role Phone DuFavian Wilfrido SIU Primary Care Provider [phone] Navya Man MD Unavailable Annette Gomes RN [...] in a fpc (including now)? No 02/06/[address] [facility] Utilities Answer Date Recorded In the past 12 months has th e [employer], gas, oil, or water company threatened to [...] drink first t geri in the morning (EYE-MEDICAL BILLER/CODER) to steady your nerves or to get [...] Upcoming Encounters Date Type Department Care Team ([facility] st Contact Info) Description 03/15/2025 3:30 PM EST Clinical Support [facility] CC Hematology/BMT and Cellular Therapy Program [address] [place] [phone] 03/15/2025 4:00 PM EST Office Visit [facility] Hematology/BMT and Cellular Therapy Program [address] [place] [phone] Parth Fitzgerald MD [address] [place] [address] 03/28/2025 1:40 PM EST Office Visit [facility] [place] [facility] [address] [facility]. [address] [place] [phone] Duglas Greer MD [address] [place] [address] 07/18/2025 1:40 PM EDT Office Visit [facility] [address] [place] [phone] Diana Alonzo PA [address] [place] [address] documented as of this encounter Visit Diagnoses Not on filedocumented in this encounter Additional Health Concerns Infection Onset Date Last Indicated Resolved Time MRSA Comment:Added from external infection. Source: [facility]. 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 Source: [facility]. 11/26/2023 02/09/2025 MDRO 08/22/2024 08/22/2024 Rhinovirus 01/17/2025 02/10/2025 Assessment Noted Time PHQ-9 Depression Total Score: 0 09/01/19 12:42 PM EDT A fall risk assessment has been complete d for the patient 09/27/2024 2:07 PM EDT A Body Mass Index follow-up plan has been documented for the patient 02/13/2025 1:18 PM EST documented as of this encounter Care Teams Recovery Rn Relationship Specialty Start Date End Date Favian Sandy DO [address] [place] [facility] [address] [place] [address] PCP - General 07/05/24 Navya Man MD [address] [phone] Consulting Physician Hematology 09/28/24 Annette Gomes, RN None None Registered Nurse 01/18/25 02/27/25 documented as of this encounter
--- OUTSIDE RECORDS SUMMARY | 2025-02-28 18:25 | XMS_ITS | Encounter Summary ---
Author Organization [facility] Address [address] [place] [address] Care Team Providers Care Licensed Appraiser Name Role Phone Du Favian Wilfrido SIU Primary Care Provider [phone] Navya Man MD Unavailable Reason for Visit * Reason Onset Date Comments TEST CLAIM 01/03/2025 Encounter Details Date Type Department Care Team (Late st Contact Info) Description 01/03/2025 Telephone [facility] [address] [place] [address] Markie Kaufman, funeral pre arrangement counselor None None TEST CLAIM Social History Tobacco [...] any time in the past 12 [facility], were you homeless or living in a usp (including now)? No 12/19/2024 [facility] Utilities Answer Date Recorded In the past 12 months has th e [employer], gas, oil, or water company threatened to [...] drink first t geri in the morning (EYE-OUTSOLE SCHEDULER) to steady your nerves or to get [...] Description 03/15/2025 3:30 PM EST Clinical Support [facility] CC Hematology/BMT and Cellular Therapy Program [address] [place] [address] [place] [phone] 03/15/2025 4:00 PM EST Office Visit [facility] Hematology/BMT and Cellular Therapy Program [address] [place] [address] [place] [phone] Parth Fitzgerald MD [address] [place] [phone] 03/28/2025 1:40 PM EST Office Visit [facility] [place] [facility] [address] [place] [address]. [address] [place] [phone] Duglas Greer MD [address] [place] [phone] 07/18/2025 1:40 PM EDT Office Visit [facility] [address] [place] [address] Diana Alonzo PA [address] [place] [address] documented as of this encounter Visit Diagnoses Not on filedocumented in this encounter Additional Health Concerns Infection Onset Date Last Indicated Resolved Time MRSA Comment:Added from external infection. Source: [facility]. 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 Source: [facility]. 11/26/2023 02/09/2025 MDRO 08/22/2024 08/22/2024 Assessment Noted Time PHQ-9 Depression Total Score: 0 09/01/19 12:42 PM EDT A fall risk assessment has been complete d for the patient 09/27/2024 2:07 PM EDT A Body Mass Index follow-up plan has been documented for the patient 01/05/2025 12:57 PM EDT documented as of this encounter Care Teams Licensed Appraiser Relationship Specialty Start Date End Date Favian Sandy DO [facility] [address] [place] [address] PCP - General 07/05/24 Navya Man MD [address] [place] [phone] Consulting Physician Hematology 09/28/24 documented as of this encounter
--- OUTSIDE RECORDS SUMMARY | 2025-02-28 18:25 | XMS_ITS | Encounter Summary ---
Author Organization [facility] Address [address] [place] [id number] Care Team Providers Care Motor Coach Driver Name Role Phone DuFavian Wilfrido SIU Primary Care Provider [phone] Navya Man MD Unavailable Annette Gomes RN Unavailable Unavailable Reason for Visit * Reason Onset Date Comments Med Refill 02/04/2025 Encounter Details Date Type Department Care Team (Late st Contact Info) Description 02/04/2025 Telephone [facility] Hematology/BMT and Cellular Therapy Program [address] [place] [address] [address] [place] [phone] Parth Fitzgerald MD [address] [place] [phone] Med Refill Social History Tobacco Use Types [...] in a retirement (including now)? No 02/06/2025 [facility] Utilities Answer Date Recorded In [...] drink first t geri in the morning (EYE-SPINNER CONCRETE PIPE) to steady your nerves or to get [...] CC Hematology/BMT and Cellular Therapy Program [address] [place] [address] 03/15/2025 4:00 PM EST Office Visit [facility] Hematology/BMT and Cellular Therapy Program [address] [facility] [place] [phone] Parth Fitzgerald MD [address] [place], [place] [phone] 03/28/2025 1:40 PM EST Office Visit [facility] [place] [facility] [address] [facility]. [address] [place] [phone] Duglas Greer MD [address] [place] [address] 07/18/2025 1:40 PM EDT Office Visit [place] [facility] [address] [place] [address] Diana Alonzo, PA [address] [place] [address] documented as of this encounter Visit Diagnoses Not on filedocumented in this encounter Additional Health Concerns Infection Onset Date Last Indicated Resolved Time MRSA Comment:Added from external infection. Source: [facility]. 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 Source: [facility]. 11/26/2023 02/09/2025 MDRO 08/22/2024 08/22/2024 Rhinovirus 01/17/2025 [...] documented as of this encounter Care Teams Motor Coach Driver Relationship Specialty Start Date End Date Favian Sandy, DO [address] [place] [address] [place] [address] PCP - General 07/05/24 Navya Man MD [address] [phone] Consulting Physician Hematology 09/28/24 Annette Gomes, RN None None Registered Nurse 01/18/25 02/27/25 documented as of this encounter
--- OUTSIDE RECORDS SUMMARY | 2025-02-28 18:25 | XMS_ITS | Clinical Summary ---
Author Organization [email or web address] ([place], [place], [place], [place], [place]) Address [address] [place] [address] Care Team Providers Care Business Area Manager Name Role Phone Favian Sandy MD Primary [...] - 12/01/2024 3:50 PM EDT Hospital Encounter [address] Neuro Telemetry Unit 1 [place] [phone] Jonnathan Beebe DO Evans, Sophia, PA-C Brammell, Korey, DO Emeric, Edgar, MD Quisenberry, Thomas, MD Patel, Paru G, SENIOR POLICY ADVISOR Astrid, Filiberto A, PA-C Sepsis without acute [...] your living situation today? [facility] 11/06/2024 Think about the [...] Do you speak a language other than Colombian at [facility]? No 11/06/2024 Do you want help with [...] AUTO DIFF Routine 11/29/2024 4:00 AM EDT from Last 3 Months Results * (ABNORMAL) CBC - Hemogram (SJ-BKR) (12/01/2024 11:36 AM EDT) WBC 7.8 4.2 - 9.1 K/ L 12/01/2024 11:49 AM EDT [facility] RBC 3.00(L) 4.63 - 6.08 M/ L 12/01/2024 11:49 AM EDT [facility] Hemoglobin 8.5(L) 13.7 - 17.5 GM/DL 12/01/2024 11:49 AM EDT [facility] Hematocrit 25.7(L) 40.1 - 51.0 % 12/01/2024 11:49 AM EDT [facility] MCV 86 79 - 92 fL 12/01/2024 11:49 AM EDT [facility] MCH 28.3 25.7 - 32.2 pg 12/01/2024 11:49 AM EDT [facility] MCHC 33.1 32.3 - 36.5 GM/DL 12/01/2024 11:49 AM EDT [facility] RDW 17.9(H) 11.6 - 14.4 % 12/01/2024 11:49 AM EDT [facility] Platelets 299 140 - 375 K/CU MM 12/01/2024 11:49 AM EDT [facility] MPV 9.7 9.4 - 12.4 fL 12/01/2024 11:49 AM EDT [facility] Blood CENTRAL VENOUS CATHETER / Unknown Venipuncture / Unknown 12/01/2024 11:36 AM EDT 12/01/2024 11:46 AM EDT us Cassie Corona PA-C LAB BLOOD ORDERABLES Final Res ult [facility] [address] [phone] * (ABNORMAL) Basic Metabolic Panel (12/01/2024 11:36 AM EDT) Only the most recent of2 resultswithin the time period is included. Sodium 134(L) 136 - 145 meq/L 12/01/2024 12:10 PM EDT [facility] Potassium 4.6 3.4 - 5.1 meq/L 12/01/2024 12:10 PM EDT [facility] CO2 21(L) 22 - 29 meq/L 12/01/2024 12:10 PM EDT [facility] Chloride 106 98 - 112 meq/L 12/01/2024 12:10 PM EDT [facility] Glucose 87 74 - 100 mg/dL 12/01/2024 12:10 PM EDT [facility] BUN 29.1(H) 8.9 - 20.6 mg/dL 12/01/2024 12:10 PM EDT [facility] Creatinine 1.11 0.72 - 1.25 mg/dL 12/01/2024 12:10 PM EDT [facility] BUN/Creatinine 26(H) 8 - 20 12/01/2024 12:10 PM EDT [facility] Calcium 9.0 8.4 - 10.2 mg/dL 12/01/2024 12:10 PM EDT [facility] Anion Gap 12 4 - 12 12/01/2024 12:10 PM EDT [facility] eGFR (mL/min/1.73m2) 92 >=60 mL/min/1.7 3m2 12/01/2024 12:10 PM EDT [facility] Comment:ESTIMATED GFR IS NOT ACCURATE CREATININE CLEARANCE IN PREDICTING GLOMERULAR FILTRATION RATE. ESTIMATED GFR IS NOT APPLICABLE FOR DIALYSIS PATIENTS. Osmolality Calc 273.5 mOsm/kg 12:10 PM EDT [facility] Blood CENTRAL VENOUS CATHETER / Unknown Venipuncture / Unknown 12/01/2024 11:36 AM EDT 12/01/2024 11:46 AM EDT us Cassie Corona PA-C LAB BLOOD ORDERABLES Final Res ult [facility] [address] [place] [address] * (ABNORMAL) CBC with automated diff (11/29/2024 4:00 AM EDT) WBC 8.2 4.2 - 9.1 K/ L 11/29/2024 4:07 AM EDT [facility] RBC 2.77(L) 4.63 - 6.08 M/ L 11/29/2024 4:07 AM EDT [facility] Hemoglobin 8.1(L) 13.7 - 17.5 GM/DL 11/29/2024 4:07 AM EDT [facility] Hematocrit 23.8(L) 40.1 - 51.0 % 11/29/2024 4:07 AM EDT [facility] MCV 86 79 - 92 fL 11/29/2024 4:07 AM EDT [facility] MCH 29.2 25.7 - 32.2 pg 11/29/2024 4:07 AM EDT [facility] MCHC 34.0 32.3 - 36.5 GM/DL 11/29/2024 4:07 AM EDT [facility] RDW 17.9(H) 11.6 - 14.4 % 11/29/2024 4:07 AM EDT [facility] Platelets 311 140 - 375 K/CU MM 11/29/2024 4:07 AM EDT [facility] MPV 9.8 9.4 - 12.4 fL 11/29/2024 4:07 AM EDT [facility] % Neutros 41 34 - 68 % 11/29/2024 4:07 AM EDT [facility] % Lymphs 47 22 - 53 % 11/29/2024 4:07 AM EDT [facility] % Monos 8 5 - 12 % 11/29/2024 4:07 AM EDT [facility] % Eos 3 1 - 7 % 11/29/2024 4:07 AM EDT [facility] % Baso 1 0 - 1 % 11/29/2024 4:07 AM EDT [facility] NRBC Absolute 0.02(H) 0 - 0.012 K/ul 11/29/2024 4:07 AM EDT [facility] # Neutros 3.36 1.78 - 5.38 K/ L 11/29/2024 4:07 AM EDT [facility] # Lymphs 3.86(H) 1.32 - 3.57 K/ L 11/29/2024 4:07 AM EDT [facility] # Monos 0.67 0.30 - 0.82 K/ L 11/29/2024 4:07 AM EDT [facility] # Eos 0.21 0.04 - 0.54 K/ L 11/29/2024 4:07 AM EDT [facility] # Baso 0.09(H) 0.01 - 0.08 K/ L 11/29/2024 4:07 AM EDT [facility] % Imm Grans 0.40 0.01 - 0.43 % 11/29/2024 4:07 AM EDT [facility] # IG 0.03 0.00 - 0.03 K/uL 11/29/2024 4:07 AM EDT [facility] Blood Venipuncture / Unknown 11/29/2024 4:00 AM EDT 11/29/2024 4:05 AM EDT Narrative [facility] - 11/29/2024 4:07 AM EDT [...] Blast? Flag noted Atypical Lymph flag noted Filiberto Resendiz PA-C LAB BLOOD ORDERABLES Final Re sult [facility] [address] [phone] from Last 3 Months Additional Health Concerns Infection Onset Date Last Indicated MDR Klebsiella pneumoniae (C ) Comment:ESBL MDR 11/24/2024 11/24/2024 Insurance [place] [id number] [facility] Advance Directives For more information, please contact: [phone] * Full Code (Latest Code Status on File) Date Activated Date Inactivated Comments 11/05/2024 9:40 PM 12/01/2024 4:51 PM Care Teams Business Area Manager Relationship Specialty Start Date End Date Favian Sandy MD [address] [place] [address] [place] [address] PCP - General Internal Medicine 11/05/24
--- OUTSIDE RECORDS SUMMARY | 2025-02-28 18:25 | XMS_ITS | Encounter Summary ---
Author Organization [facility] Address [address] [place] [address] Care Team Providers Care Mower Mechanic Name Role Phone Favian Sandy DO Primary Care Provider [phone] Navya Man MD Unavailable Encounter Details Date [...] any time in the past 12 m [facility], were you homeless or living in a fci (including now)? No 12/19/2024 [facility] Utilities Answer Date Recorded In the past 12 months has th e [place], gas, oil, or water [employer] threatened to shut off services in your [...] drink first t geri in the morning (EYE-ASSISTANT GM OF CONTENT & DELIVERY) to steady your nerves or to get [...] [facility] Hematology/BMT and Cellular Therapy Program [address] [place] [phone] 03/15/2025 4:00 PM EST Office Visit [facility] Hematology/BMT and Cellular Therapy Program [address] [place] [phone] Parth Fitzgerald MD [address] [place] [address] 03/28/2025 1:40 PM EST Office Visit [facility] [place] [address] [facility]. [address] [place] [phone] Duglas Greer MD [address] [place] [address] 07/18/2025 1:40 PM EDT [facility] [address], 2nd [place] [phone] Diana Alonzo PA [address] [place] [address] documented as of this encounter Visit Diagnoses Not on filedocumented in this encounter Additional Health Concerns Infection Onset Date Last Indicated Resolved Time MRSA Comment:Added from external infection. Source: [facility]. 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 Source: [facility]. 11/26/2023 02/09/2025 MDRO 08/22/2024 08/22/2024 Assessment Noted Time PHQ-9 Depression Total Score: 0 09/01/19 12:42 PM EDT A fall risk assessment has been complete d for the patient 09/27/2024 2:07 PM EDT A Body Mass Index follow-up plan has been documented for the patient 01/05/2025 12:57 PM EDT documented as of this encounter Care Teams Mower Mechanic Relationship Specialty Start Date End Date Favian Sandy DO [address] [place] [address] PCP - General 07/05/24 Navya Man MD [address] [phone] Consulting Physician Hematology 09/28/24 documented as of this encounter
--- OUTSIDE RECORDS SUMMARY | 2025-02-28 18:25 | XMS_ITS | Encounter Summary ---
Author Organization [facility] Address [address] [place] [address] Care Team Providers Care Back Shoe Cutter Name Role Phone DuFavian Wilfrido SIU Primary Care Provider [phone] Navya Man MD Unavailable Annette Gomes RN Unavailable Unavailable Encounter Details Date Type Department Care Team (Late st Contact Info) Description 01/31/[address] [facility] [address] [place] [address] Chichi Quispe MBBS [address] [place] [address] Social History Tobacco Use Types [...] in the past 12 m [facility], were you homeless or living in a chcf (including now)? No 01/18/2025 [facility] Utilities Answer Date Recorded [...] drink first t geri in the morning (EYE-CDL DEDICATED TRUCK DRIVER) to steady your nerves or to get [...] 03/15/2025 3:30 PM EST Clinical Support [facility] Hematology/BMT and Cellular Therapy Program [address] [place] [phone] 03/15/2025 4:00 PM EST Office Visit [facility] Hematology/BMT and Cellular Therapy Program [address] [place] [phone] Parth Fitzgerald MD [address] [place], [place] [phone] 03/28/2025 1:40 PM EST Office Visit [facility] [place] [address] [facility]. [address] [place] [phone] Duglas Greer MD [address] [place] [address] 07/18/2025 1:40 PM EDT Office [facility] [address], 2[address] [place] [address] Diana Alonzo, PA [address] [place] [address] documented as of this encounter Visit Diagnoses Not on filedocumented in this encounter Additional Health Concerns Infection Onset Date Last Indicated Resolved Time MRSA Comment:Added from external infection. Source: [facility]. 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 Source: [facility]. 11/26/2023 02/09/2025 MDRO 08/22/2024 08/22/2024 Rhinovirus 01/17/2025 02/10/2025 Assessment Noted Time PHQ-9 Depression Total Score: 0 09/01/19 12:42 PM EDT A fall risk assessment has been complete d for the patient 09/27/2024 2:07 PM EDT A Body Mass Index follow-up plan has been documented for the patient 01/30/2025 5:06 PM EST documented as of this encounter Care Teams Back Shoe Cutter Relationship Specialty Start Date End Date Favian Sandy DO 12[address] [facility] [address] [place] [address] PCP - General 07/05/24 Navya Man MD [address] [place] [address] Consulting Physician Hematology 09/28/24 Annette Gomes RN None None Registered Nurse 01/18/25 02/27/25 documented as of this encounter
--- OUTSIDE RECORDS SUMMARY | 2025-02-28 18:25 | XMS_ITS | Encounter Summary ---
Author Organization [facility] Address [address] [place] [address] Care Team Providers Care Piping Blocker Name Role Phone DuFavian Wilfrido SIU Primary Care Provider [phone] Navya Man MD Unavailable Annette Gomes RN Unavailable Unavailable Encounter Details Date Type Department Care Team (Late st Contact Info) Description 01/31/2025 Telephone [facility] [address] [place] [address] Chichi Quispe MBBS [address] [place] [address] Social History Tobacco Use Types [...] time in the past 12 m [facility], were you homeless or living in a mcc (including now)? No 01/18/2025 [facility] Utilities Answer Date Recorded In the [...] drink first t geri in the morning (EYE-PERSONAL CARE ASSISTANT) to steady your nerves or to get [...] Description 03/15/2025 3:30 PM EST Clinical Support [facility] Hematology/BMT and Cellular Therapy Program [address] [place] [phone] 03/15/2025 4:00 PM EST Office Visit [facility] Hematology/BMT and Cellular Therapy Program [address] [place] [phone] Parth Fitzgerald MD [address] [place], [place] [phone] 03/28/2025 1:40 PM EST Office Visit [facility] [place] 800 [facility]. [address] [place] [phone] Duglas Greer MD [address] [place] [address] 07/18/2025 1:40 PM EDT Office Visit [place] [facility] [address], 2[address] [place] [address] Diana Alonzo, PA [address] [place] [address] documented as of this encounter Visit Diagnoses Not on filedocumented in this encounter Additional Health Concerns Infection Onset Date Last Indicated Resolved Time MRSA Comment:Added from external infection. Source: [facility] [place]. 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 Source: [facility]. 11/26/2023 02/09/2025 MDRO 08/22/2024 08/22/2024 Rhinovirus 01/17/2025 02/10/2025 Assessment Noted Time PHQ-9 Depression Total Score: 0 09/01/19 12:42 PM EDT A fall risk assessment has been complete d for the patient 09/27/2024 2:07 PM EDT A Body Mass Index follow-up plan has been documented for the patient 01/30/2025 5:06 PM EST documented as of this encounter Care Teams Piping Blocker Relationship Specialty Start Date End Date Favian Sandy DO 1210 [facility] [address] [place] [address] PCP - General 07/05/24 Navya Man MD [address] [place] [address] Consulting Physician Hematology 09/28/24 Annette Gomes RN None None Registered Nurse 01/18/25 02/27/25 documented as of this encounter
--- OUTSIDE RECORDS SUMMARY | 2025-02-28 18:25 | XMS_ITS | Encounter Summary ---
Author Organization [facility] Address [address] [place] [address] Care Team Providers Care Qa Software Tester Name Role Phone DuFavian Wilfrido SIU Primary Care Provider [phone] Navya Man MD Unavailable Annette Gomes RN Unavailable Unavailable Encounter Details Date Type Department Care Team (Late st Contact Info) Description 02/05/2025 Orders Only External Location [address] [place] [address] Provider, External Social History Tobacco Use Types [...] any time in the past 12 m [facility], were you homeless or living in a residential (including now)? No 02/06/2025 [facility] Utilities Answer Date Recorded In the [...] first t geri in the morning (EYE-CLINICAL REHABILITATION LIAISON) to steady your nerves or to [...] Description 03/15/2025 3:30 PM EST Clinical Support [facility] Hematology/BMT and Cellular Therapy Program [address] [place] [phone] 03/15/2025 4:00 PM EST Office Visit [facility] Hematology/BMT and Cellular Therapy Program [address] [place] [phone] Parth Fitzgerald MD [address] [place] [address] 03/28/2025 1:40 PM EST Office Visit [facility] [place] 800 [facility]. [address] [place] [phone] Duglas Greer MD [address] [place] [address] 07/18/2025 1:40 PM EDT Office Visit [facility] [address], 2[address] [place] [address] Diana Alonzo PA [address] [place] [phone] documented as of this encounter Procedures Procedure [...] MRSA Comment:Added from external infection. Source: [facility]. 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 Source: [facility]. 11/26/2023 02/09/2025 MDRO 08/22/2024 08/22/2024 Rhinovirus [...] documented as of this encounter Care Teams Qa Software Tester Relationship Specialty Start Date End Date Favian Sandy DO [facility] [address] [place] [address] PCP - General 07/05/24 Navya Man MD [address] [place] [address] Consulting Physician Hematology 09/28/24 Annette Gomes, RN None None Registered Nurse 01/18/25 02/27/25 documented as of this encounter
--- OUTSIDE RECORDS SUMMARY | 2025-02-28 18:25 | XMS_ITS | Encounter Summary ---
Author Organization [facility] Address [address] [place] [address] Care Team Providers Care Clinical Data Coordinator Name Role Phone DuFavian matamoros Wilfrido SIU Primary Care Provider [phone] Navya Man MD Unavailable Annette Gomes RN Unavailable Unavailable Encounter Details Date Type Department Care Team (Late st Contact Info) Description 02/06/2025 Patient Outreach [facility] [address], [address] [place] [address] Annette Gomes, RN None None [...] a senior care (including now)? No 02/06/2025 [facility] Utilities Answer Date Recorded [...] drink first t geri in the morning (EYE-COMBINE MECHANIC) to steady your nerves or to get [...] Upcoming Encounters Date Type Department Care Team ([facility] st Contact Info) Description 03/15/2025 3:30 PM EST Clinical Support [facility] Hematology/BMT and Cellular Therapy Program [address] [place] [phone] 03/15/2025 4:00 PM EST Office Visit [facility] Hematology/BMT and Cellular Therapy Program [address] [place] [address] [place] [phone] Parth Fitzgerald MD [address] [place], [place] [phone] 03/28/2025 1:40 PM EST Office Visit [facility] [place] 800 [facility]. [address] [place] [phone] Duglas Greer MD [address] [place] [address] 07/18/2025 1:40 PM EDT Office Visit [place] [facility] [address], [address] [place] [address] Diana Alonzo, JAMAL [address] [place] [address] documented as of this encounter [...] documented as of this encounter Care Teams Clinical Data Coordinator Relationship Specialty Start Date End Date Favian Sandy DO [address] [facility] [address] [place] [address] PCP - General 07/05/24 Navya Man MD [address] [place] [address] Consulting Physician Hematology 09/28/24 Annette Gomes, RN None None Registered Nurse 01/18/25 02/27/25 documented as of this encounter
--- OUTSIDE RECORDS SUMMARY | 2025-02-28 18:25 | XMS_ITS | Encounter Summary ---
Author Organization [facility] Address [address] [place] [address] Care Team Providers Care Appliance Parts Counter Clerk Name Role Phone DuFavian Wilfrido SIU Primary Care Provider [phone] Navya Man MD Unavailable Annette Gomes RN Unavailable Unavailable Encounter Details Date Type Department Care Team (Late st Contact Info) Description 02/04/2025 Clinical Support [facility] [address] [place] [address] Jaydon Stuart, PharmD [address] [address] Social History Tobacco Use Types [...] any time in the past 12 m [facility], were you homeless or living in a mcc (including now)? No 01/18/2025 [facility] Utilities Answer Date Recorded In the [...] drink first t geri in the morning (EYE-FAMILY AND MARRIAGE COUNSELLOR) to steady your nerves or to get [...] Upcoming Encounters Date Type Department Care Team ([facility] st Contact Info) Description 03/15/2025 3:30 PM EST Clinical Support [facility] Hematology/BMT and Cellular Therapy Program [address] [place] [phone] 03/15/2025 4:00 PM EST Office Visit [facility] Hematology/BMT and Cellular Therapy Program [address] [place] [phone] Parth Fitzgerald MD [address] [place] [address] 03/28/2025 1:40 PM EST Office Visit [facility] [place] [address] [place] [address] Duglas Greer MD [address] [place] [phone] 07/18/2025 1:40 PM EDT Office Visit [facility] [address], [address] [place] [phone] Diana Aolnzo, JAMAL [address] [place] [address] documented as of this encounter Visit Diagnoses Not on filedocumented in this encounter Additional Health Concerns Infection Onset Date Last Indicated Resolved Time MRSA Comment:Added from external infection. Source: [facility]. 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 Source: [facility]. 11/26/2023 02/09/2025 MDRO 08/22/2024 08/22/2024 Rhinovirus 01/17/2025 02/10/2025 Assessment Noted Time PHQ-9 Depression Total Score: 0 09/01/19 12:42 PM EDT A fall risk assessment has been complete d for the patient 09/27/2024 2:07 PM EDT A Body Mass Index follow-up plan has been documented for the patient 02/04/2025 9:08 AM EST documented as of this encounter Care Teams Appliance Parts Counter Clerk Relationship Specialty Start Date End Date Favian Sandy DO [facility] [address] [place] [address] PCP - General 07/05/24 Navya Man MD [address] [place] [address] Consulting Physician Hematology 09/28/24 Annette Gomes, RN None None Registered Nurse 01/18/25 02/27/25 documented as of this encounter
--- OUTSIDE RECORDS SUMMARY | 2025-02-28 18:25 | XMS_ITS | Encounter Summary ---
Author Organization [facility] Address [address] [place] [address] Care Team Providers Care Chuck Tender Name Role Phone DuFavian matamoros Primary Care Provider [phone] Navya Man MD Unavailable Cathleen Pena LPN Unavailable UnavailPhyllis Busch RN Unavailable Unavailab Camilla Montenegro RN Unavailable Unavailable Annette Gomes RN Unavailable Unavailable Encounter Details Date Type Department Care Team (Late st Contact Info) Description 10/11/2024 Orders Only [facility] [address] [place] [address] Parth Jaquez MD [address] [place] [address] Sickle cell disease without crisis (CMS/HCC) (Primary [...] the past 12 m [facility], were you homeless or living in a [...] drink first t geri in the morning (EYE-CYLINDER GRINDER) to steady your nerves or to get [...] Upcoming Encounters Date Type Department Care Team ([facility] Contact Info) Description 03/15/2025 3:30 PM EST Clinical Support [facility] CC Hematology/BMT and Cellular Therapy Program [address] [place] [phone] 03/15/2025 4:00 PM EST Office Visit [facility] Hematology/BMT and Cellular Therapy Program [address] [place] [phone] Parth Fitzgerald MD [address] [place], [place] [phone] 03/28/2025 1:40 PM EST Office Visit [facility] [address] [place] [phone] Duglas Greer MD [address] [place] [address] 07/18/2025 1:40 PM EDT Office Visit [facility] [address], [address]nd [place] [address] Diana Alonzo PA [address] [place] [address] Scheduled Orders Name Type Priority Associated Diagnoses [...] 20 mg, Oral, Daily PRN, Starting on [place] 10/11/24 at 1838, Until Discontinued, Routine, indigestion, heartburn, upset stomach famotidine PF (Pepcid) injection 20 mg 20 mg, Intravenous, Once as needed, 1 dose, Starting on [place] 10/11/24 at 1838, Until Discontinued, STAT, For flushing, [...] Comment:Added from external infection. Source: [facility]. 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 Source: [facility]. 11/26/2023 02/09/2025 MDRO 08/22/2024 08/22/2024 COVID-19 Rule-Out [...] documented as of this encounter Care Teams Chuck Tender Relationship Specialty Start Date End Date Favian Sandy DO [address] [place] [address] [place] [address] PCP - General 07/05/24 Navya Man MD [address] [address] Consulting Physician Hematology 09/28/24 Cathleen Pena, [facility] None TCM Nurse 10/15/24 11/06/24 Phyllis Arango, RN CH-VASCULAR & INTERVENTIONAL RADIOLOGY None Registered Nurse 10/22/24 10/22/24 Camilla Guerrier, RN VALUE-BASED TRANSFORMATION PROGRAM [place], [place] Chief Inspector 01/08/25 01/18/25 Annette Gomes, RN None None Registered Nurse 01/18/25 02/27/25 documented as of this encounter
--- OUTSIDE RECORDS SUMMARY | 2025-02-28 18:25 | XMS_ITS | Referral Summary ---
Author Organization [employer] ([place], [place], [place], [place], [place]) Address [address] [place] [address] Care Team Providers Care Tractor Operator Battery Name Role Phone Favian Sandy MD Primary Care Provider + Encounters Date Type Department Care Team Description 11/05/2024 6:34 PM EDT - 12/01/2024 3:50 PM EDT Hospital Encounter [address] Neuro Telemetry Unit [address] [place] [address] Jonnathan Beebe DO Evans, Sophia, Bola Ruiz DO Emeric, Edgar, MD Quisenberry, Thomas, MD Patel, Paru G, WHITEWATER RAFTING GUIDE Filiberto Resendiz, MARK Sepsis without acute organ [...] your living situation today? I have a [facility] place to live 11/06/2024 Think about [...] Do you speak a language other than Ukrainian at [facility]? No 11/06/2024 Do you [...] 9.1 K/ L 12/01/2024 11:49 AM EDT [facility] RBC 3.00(L) 4.63 - 6.08 M/ L 12/01/2024 11:49 AM EDT [facility] Hemoglobin 8.5(L) 13.7 - 17.5 GM/DL 12/01/2024 11:49 AM EDT [facility] Hematocrit 25.7(L) 40.1 - 51.0 % 12/01/2024 11:49 AM EDT [facility] MCV 86 79 - 92 fL 12/01/2024 11:49 AM EDT [facility] MCH 28.3 25.7 - 32.2 pg 12/01/2024 11:49 AM EDT [facility] MCHC 33.1 32.3 - 36.5 GM/DL 12/01/2024 11:49 AM EDT [facility] RDW 17.9(H) 11.6 - 14.4 % 12/01/2024 11:49 AM EDT [facility] Platelets 299 140 - 375 K/CU MM 12/01/2024 11:49 AM EDT [facility] MPV 9.7 9.4 - 12.4 fL 12/01/2024 11:49 AM EDT [facility] Blood CENTRAL VENOUS CATHETER / Unknown Venipuncture / Unknown 12/01/2024 11:36 AM EDT 12/01/2024 11:46 AM EDT us Cassie Corona PA-C LAB BLOOD ORDERABLES Final Res ult [facility] [address] [phone] * (ABNORMAL) Basic Metabolic Panel (12/01/2024 11:36 AM EDT) Only the most recent of2 resultswithin the time period is included. Sodium 134(L) 136 - 145 meq/L 12/01/2024 12:10 PM EDT [facility] Potassium 4.6 3.4 - 5.1 meq/L 12/01/2024 12:10 PM EDT [facility] CO2 21(L) 22 - 29 meq/L 12/01/2024 12:10 PM EDT [facility] Chloride 106 98 - 112 meq/L 12/01/2024 12:10 PM EDT [facility] Glucose 87 74 - 100 mg/dL 12/01/2024 12:10 PM EDT [facility] BUN 29.1(H) 8.9 - 20.6 mg/dL 12/01/2024 12:10 PM EDT [facility] Creatinine 1.11 0.72 - 1.25 mg/dL 12/01/2024 12:10 PM EDT [facility] BUN/Creatinine 26(H) 8 - 20 12/01/2024 12:10 PM EDT [facility] Calcium 9.0 8.4 - 10.2 mg/dL 12/01/2024 12:10 PM EDT [facility] Anion Gap 12 4 - 12 12/01/2024 12:10 PM EDT [facility] eGFR (mL/min/1.73m2) 92 >=60 mL/min/1.7 3m2 12/01/2024 12:10 PM EDT [facility] Comment:ESTIMATED GFR IS NOT ACCURATE CREATININE CLEARANCE IN PREDICTING GLOMERULAR FILTRATION RATE. ESTIMATED GFR IS NOT APPLICABLE FOR DIALYSIS PATIENTS. Osmolality Calc 273.5 mOsm/kg 12:10 PM EDT [facility] Blood CENTRAL VENOUS CATHETER / Unknown Venipuncture / Unknown 12/01/2024 11:36 AM EDT 12/01/2024 11:46 AM EDT us Cassie Corona PA-C LAB BLOOD ORDERABLES Final Res ult [facility] [address] [phone] * (ABNORMAL) CBC with automated diff (11/29/2024 4:00 AM EDT) WBC 8.2 4.2 - 9.1 K/ L 11/29/2024 4:07 AM EDT [facility] RBC 2.77(L) 4.63 - 6.08 M/ L 11/29/2024 4:07 AM EDT [facility] Hemoglobin 8.1(L) 13.7 - 17.5 GM/DL 11/29/2024 4:07 AM EDT [facility] Hematocrit 23.8(L) 40.1 - 51.0 % 11/29/2024 4:07 AM EDT [facility] MCV 86 79 - 92 fL 11/29/2024 4:07 AM EDT [facility] MCH 29.2 25.7 - 32.2 pg 11/29/2024 4:07 AM EDT [facility] MCHC 34.0 32.3 - 36.5 GM/DL 11/29/2024 4:07 AM EDT [facility] RDW 17.9(H) 11.6 - 14.4 % 11/29/2024 4:07 AM EDT [facility] Platelets 311 140 - 375 K/CU MM 11/29/2024 4:07 AM EDT [facility] MPV 9.8 9.4 - 12.4 fL 11/29/2024 4:07 AM EDT [facility] % Neutros 41 34 - 68 % 11/29/2024 4:07 AM EDT [facility] % Lymphs 47 22 - 53 % 11/29/2024 4:07 AM EDT [facility] % Monos 8 5 - 12 % 11/29/2024 4:07 AM EDT [facility] % Eos 3 1 - 7 % 11/29/2024 4:07 AM EDT [facility] % Baso 1 0 - 1 % 11/29/2024 4:07 AM EDT [facility] NRBC Absolute 0.02(H) 0 - 0.012 K/ul 11/29/2024 4:07 AM EDT [facility] # Neutros 3.36 1.78 - 5.38 K/ L 11/29/2024 4:07 AM EDT [facility] # Lymphs 3.86(H) 1.32 - 3.57 K/ L 11/29/2024 4:07 AM EDT [facility] # Monos 0.67 0.30 - 0.82 K/ L 11/29/2024 4:07 AM EDT [facility] # Eos 0.21 0.04 - 0.54 K/ L 11/29/2024 4:07 AM EDT [facility] # Baso 0.09(H) 0.01 - 0.08 K/ L 11/29/2024 4:07 AM EDT [facility] % Imm Grans 0.40 0.01 - 0.43 % 11/29/2024 4:07 AM EDT [facility] # IG 0.03 0.00 - 0.03 K/uL 11/29/2024 4:07 AM EDT [facility] Blood Venipuncture / Unknown 11/29/2024 4:00 AM EDT 11/29/2024 4:05 AM EDT Narrative [facility] - 11/29/2024 4:07 AM EDT When [...] PA-C LAB BLOOD ORDERABLES Final Re sult [facility] [address] [place] [address], [facility] [phone] from Last 3 Months Additional Health Concerns Infection Onset Date Last Indicated MDR Klebsiella pneumoniae (C ) Comment:ESBL MDR 11/24/2024 11/24/2024 Insurance [facility] Advance Directives For more information, please contact: [phone] * Full Code (Latest Code Status on File) Date Activated Date Inactivated Comments 11/05/2024 9:40 PM 12/01/2024 4:51 PM Care Teams Tractor Operator Battery Relationship Specialty Start Date End Date Favian Sandy MD [address] [place] [address] [place] [address] PCP - General Internal Medicine 11/05/24
--- OUTSIDE RECORDS SUMMARY | 2025-02-28 18:25 | XMS_ITS | Encounter Summary ---
Author Organization [facility] Address [address] [id number] Care Team Providers Care Educational Specialist Name Role Phone DuFavian Wilfrido SIU Primary Care Provider Navya Man MD Unavailable Camilla Guerrier RN Unavailable Unavailable Encounter Details Date Type Department Care Team (Late st Contact Info) Description 12/27/2024 Telephone [facility] [address] [place] [phone] Ileana Gongora, [place] [address] Social History Tobacco Use Types Packs/Day Years [...] any time in the past 12 m [facility], were you homeless or living in a senior living (including now)? 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 Pt with HCV gt 1a, normal liver on imaging, and fibroscan 4.5 kPa. 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 He has had treatment in [facility] in the past but the details [...] Upcoming Encounters Date Type Department Care Team ([facility] st Contact Info) Description 03/15/2025 3:30 PM EST Clinical Support [facility] Hematology/BMT and Cellular Therapy Program [address] [place] [phone] 03/15/2025 4:00 PM EST Office Visit [facility] Hematology/BMT and Cellular Therapy Program [address] [place] [phone] Parth Fitzgerald MD [address] [place] [address] 03/28/2025 1:40 PM EST Office Visit [facility] [place] [address] [facility]. [address] [place] [address] Duglas Greer MD [address] [place] [address] 07/18/2025 1:40 PM EDT Office Visit [place] [facility] [address] [place] [phone] Diana Alonzo PA [address] [place] [address] documented as of this encounter Visit Diagnoses [...] documented as of this encounter Care Teams Educational Specialist Relationship Specialty Start Date End Date Favian Sandy DO [address] [facility] [address] [place] [address] PCP - General 07/05/24 Navya Man MD [address] [phone] Consulting Physician Hematology 09/28/24 Camilla Guerrier, RN VALUE-BASED TRANSFORMATION PROGRAM [place], [place] Medical Instrument Cable Fabricator 01/08/25 01/18/25 documented as of this encounter
--- OUTSIDE RECORDS SUMMARY | 2025-02-28 18:25 | XMS_ITS | Encounter Summary ---
Author Organization Healthcare Address [address] [place] [address] Care Team Providers Care Plant Technician/Control Room Operator Name Role Phone DuFavian Wilfrido SIU Primary Care Provider [phone] Navya Man MD Unavailable Annette Gomes RN [...] living in a assisted (including now)? No 02/06/2025 [facility] Utilities Answer Date Recorded In the past 12 months has th e [employer], gas, oil, or water company threatened to [...] drink first t geri in the morning (EYE-GAUGE MAKER) to steady your nerves or to [...] Upcoming Encounters Date Type Department Care Team ([facility] st Contact Info) Description 03/15/2025 3:30 PM EST Clinical Support [facility] CC Hematology/BMT and Cellular Therapy Program [address] [place] [phone] 03/15/2025 4:00 PM EST Office Visit [facility] CC Hematology/BMT and Cellular Therapy Program [address] [place] [phone] Parth Fitzgerald MD [address] [place] [address] 03/28/2025 1:40 PM EST Office Visit [facility] [place] [address] [facility]. [address] [place] [phone] Duglas Greer MD [address] [place] [address] 07/18/2025 1:40 PM EDT Office Visit [place] [facility] [address] [place] [phone] Diana Alonzo PA [address] [place] [address] documented as of this encounter Visit Diagnoses Not on filedocumented in this encounter Additional Health Concerns Infection Onset Date Last Indicated Resolved Time MRSA Comment:Added from external infection. Source: [facility]. 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 Source: [facility]. 11/26/2023 02/09/2025 MDRO 08/22/2024 08/22/2024 Rhinovirus 01/17/2025 02/10/2025 Assessment Noted Time PHQ-9 Depression Total Score: 0 09/01/19 12:42 PM EDT A fall risk assessment has been complete d for the patient 09/27/2024 2:07 PM EDT A Body Mass Index follow-up plan has been documented for the patient 02/13/2025 1:18 PM EST documented as of this encounter Care Teams Plant Technician/Control Room Operator Relationship Specialty Start Date End Date Favian Sandy DO [address] [place] [facility] [address] [place] [address] PCP - General 07/05/24 Navya Man MD [address] [address] Consulting Physician Hematology 09/28/24 Annette Gomes, RN None None Registered Nurse 01/18/25 02/27/25 documented as of this encounter
--- OUTSIDE RECORDS SUMMARY | 2025-02-28 18:25 | XMS_ITS | Encounter Summary ---
Author Organization [facility] Address [address] [place] [address] Care Team Providers Care Fryer Operator Name Role Phone DuFavian matamoros Primary Care Provider [phone] Navya Man MD Unavailable Annette Gomes RN Unavailable Unavailable Reason for Visit * Reason Comments TCM Encounter Details Date Type Department Care Team (Late st Contact Info) Description 02/04/2025 Patient Outreach [facility] [address] [place] [address] Annette Gomes, RN None None [...] time in the past 12 m [facility], were you homeless or living in a detention (including now)? No 01/18/2025 [facility] Utilities Answer Date Recorded In the past [...] drink first t geri in the morning (EYE-FINANCIAL SERVICES REPRESENTATIVE) to steady your nerves or to get rid of a hangover? 0 01/17/2025 CAGE Questionnaire Score 0 025 Sex and Gender Information Value Date Recorded Sex Assigned at Male 03/16/2024 2:12 PM EST Legal Sex Male 7:40 PM EDT Gender Identity Not on file Sexual Orientation Not on file documented as of this encounter Functional Status * Engagement Question Answer Date of Assessment Author Is the patient eligible? Yes 02/04/2025 12:51 PM Annette Garrett RN * Medications Question Answer Date of Assessment Author Medications reviewed with patient/caregiver? Yes 02/04/2025 12:51 PM Annette Garrett RN Is the patient having any side effects they believe may be caused by any medication additions or changes? No 02/04/2025 12:51 PM Annette Garrett RN Does the patient have all medications ordered at discharge? Yes 02/04/2025 12:51 PM Annette Garrett RN Nursing Interventions No intervention needed 03/2024 12:51 PM Annette Garrett RN Is the patient taking all medications as directed (includes completed medication regime)? Yes 02/04/2025 12:51 PM Annette Garrett RN Nursing Interventions Nurse provided pat ient education;Advised patient to call provider;Notified provider 02/04/2025 12:51 PM Annette Garrett RN Medication Comments RN communicated with Provider in regards to pain medication 02/04/2025 12:51 PM Annette Garrett RN * Appointments Question Answer Date of Assessment Author Does the patient have a primary care provider? Yes 02/04/2025 12:51 PM Annette Garrett RN Does the patient have an appointment with their PCP within 7 days of discharge? Greater than 7 days 02/04/2025 12:51 PM Annette Garrett RN What is preventing the patient from scheduling follow up appointments within 7 days of discharge? Haven't had time 02/04/2025 12:51 PM Annette Garrett RN Nursing Interventions Educated patient o n importance of making appointment 02/04/2025 12:51 PM Annette Garrett RN Has the patient kept scheduled appointments due by today? Yes 02/04/2025 12:51 PM Annette Garrett RN Nursing Interventions Advised patient to keep appointment 02/04/2025 12:51 PM Annette Garrett RN * Self Management Question Answer Date of Assessment Author Has home health visited the patient within 72 hours of discharge? Not applicable 02/04/2025 12:51 PM Annette Garrett RN * Patient Teaching Question Answer Date of Assessment Author Did the patient receive a copy of their discharge instructions? Yes 02/04/2025 12:51 PM Annette Garrett RN Nursing Interventions Reviewed instructi ons with patient 02/04/2025 12:51 PM Annette Garrett RN What is the patient's perception of their health status since discharge? Same 02/04/2025 12:51 PM Annette Garrett RN Is the patient/caregiver able to teach back signs and symptoms related to disease process for when to call PCP? Yes 02/04/2025 12:51 PM Annette Garrett RN Is the patient/caregiver able to teach back signs and symptoms related to disease process for when to call 911? Yes 02/04/2025 12:51 PM Annette Garrett RN Is the patient/caregiver able to teach back the hierarchy of who to call/visit for symptoms/problems? PCP, Specialist, Home Health nurse, Urgent Care, ED, 911 Yes 02/04/2025 12:51 PM Annette Garrett RN * Wrap Up Question Answer Date of Assessment Author Call completed? Yes 02/04/2025 12:51 PM Annette Garrett RN Wrap Up Additional Comments Provider is assisting patient with pain medication need. 02/04/2025 12:51 PM Annette Garrett RN Does the patient have an Advance Directive or Living Will? No 02/04/2025 12:51 PM Annette Garrett RN Is the patient/caregiver familiar with Advance Care Planning? No 02/04/2025 12:51 PM Annette Garrett RN Would the patient like more information on Advance Care Planning? No 02/04/2025 12:51 PM Annette Garrett RN Did the patient feel the follow up calls were helpful during their recovery period? Yes 02/04/2025 12:51 PM Annette Garrett RN documented as of this encounter Mental Status * Pop Health Reason For Visit Assessment Group Question Answer Entry Date Author Outreach Reason Program Enrollment/Intake 02/04/2025 11:52 AM Annette Garrett RN Pop Health Reason For Encounter TCM 02/04/2025 11:52 AM Annette Garrett RN documented in this encounter Miscellaneous Notes [...] and Cellular Therapy Program [address] [place] [phone] 03/15/2025 4:00 PM EST Office Visit [facility] Hematology/BMT and Cellular Therapy Program [address] [place] [phone] Parth Fitzgerald MD [address] [place], [place] [phone] 03/28/2025 1:40 PM EST Office Visit [facility] [place] [address] [facility]. [address] [place] [phone] Duglas Greer MD [address] [place] [address] 07/18/2025 1:40 PM EDT Office Visit [place] [facility] [address] [place] [address] Diana Alonzo, PA [address] [place] [phone] documented as of this encounter Visit Diagnoses Not on filedocumented in this encounter Additional Health Concerns Infection Onset Date Last Indicated Resolved Time MRSA Comment:Added from external infection. Source: [facility]. 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 Source: [facility]. 11/26/2023 02/09/2025 MDRO 08/22/2024 08/22/2024 Rhinovirus 01/17/2025 02/10/2025 Assessment Noted Time PHQ-9 Depression Total Score: 0 09/01/19 25 12:42 PM EDT A fall risk assessment has been complete d for the patient 09/27/2024 2:07 PM EDT A Body Mass Index follow-up plan has been documented for the patient 02/04/2025 9:08 AM EST documented as of this encounter Care Teams Fryer Operator Relationship Specialty Start Date End Date Favian Sandy, [address] [place] [address] [place] [address] PCP - General 07/05/24 Navya Man MD [address] [address] Consulting Physician Hematology 09/28/24 Annette Gomes RN None None Registered Nurse 01/18/25 02/27/25 documented as of this encounter
--- OUTSIDE RECORDS SUMMARY | 2025-02-28 18:25 | XMS_ITS ---
Author Organization [facility] Address [address] [place] [address] Care Team Providers Care Steward/Stewardess Smoke Room Name Role Phone Favian Sandy DO Primary Care Provider [phone] Navya Man MD Unavailable High Risk Care Management Status:Closed (Closed) Program category:Care Coordination Start date:01/18/2025 Enrollment date:02/04/2025 Enrollment reason:Identified using referral data End date:02/27/2025 Close reason:In Treatment Continued Care and Services Coordination
--- OUTSIDE RECORDS SUMMARY | 2025-02-28 18:25 | XMS_ITS | Encounter Summary ---
Author Organization [facility] Address [address] [id number] Care Team Providers Care Kitchen Stewardess Name Role Phone DuFavian Wilfrido SIU Primary Care Provider [phone] Navya Man MD Unavailable Cathleen Pena LPN Unavailable UnavailPhyllis Busch RN Unavailable Unavailab Camilla Montenegro RN Unavailable Unavailable Annette Gomes RN Unavailable Unavailable Reason for Visit * Auth/Cert (Routine) Specialty Diagnoses / Procedures Referred By Fito t Referred To Contact Diagnoses Sickle cell pain crisis (CMS/HCC) Blood transfusion reaction, initial encounter Lazaro Cortez MD [address] [place] [address] Phone: tel: fax: PAV A Inpatient [address] [place] [address] Referral ID Status Reason Start Date Expiration Date Visits Re quested Visits Authorized [id number] 1 1 Encounter Details Date Type Department Care Team (Late st Contact Info) Description 10/19/2024 Lab Requisition [facility] [address] [place] [address] Sundeep Jaquez MD [address] [place] [address] Encounter for general adult medical [...] time in the past 12 m [facility], were you homeless or living in a [...] drink first t geri in the morning (EYE-RIDE ATTENDANT) to steady your nerves or to [...] Description 03/15/2025 3:30 PM EST Clinical Support [facility] CC Hematology/BMT and Cellular Therapy Program [address] [place] [phone] 03/15/2025 4:00 PM EST Office Visit [facility] CC Hematology/BMT and Cellular Therapy Program [address] [place] [phone] Parth Fitzgerald MD [address] [place] [address] 03/28/2025 1:40 PM EST Office Visit [facility] [place] B[place]don 800 [facility]. [address] [place] [phone] Duglas Greer MD [address] [place] [phone] 07/18/2025 1:40 PM EDT Office Visit [place] [facility] Medicine Specialties [address], 2nd [place] [address] Diana Alonzo, JAMAL [address] [place] [phone] documented as of this encounter Procedures Procedure Name Priority Date/Time Associated Diagnosis Comments TRANSFUSION REACTION CULTURE AND GRAM STAIN Routine 10/19/2024 6:08 PM EDT Encounter for general adult medical examination without abnormal findings documented in this encounter Results * Transfusion Reaction Culture and Gram Stain (10/19/2024 6:08 PM EDT) Culture No growth at day 7 2024 10:42 AM EDT [facility] Gram Stain Result No polymorphonuclear leukocytes seen 10/28/2024 10:42 AM EDT [facility] Gram Stain Result No organisms seen 10/28/2024 10:42 AM EDT [facility] Transfusion Bag Blood transfusion reaction / Unknown 10/19/2024 6:08 PM EDT 10/19/2024 6:08 PM EDT us Sundeep Jaquez MD LAB MICROBIOLOGY - GENERAL ORDERABLES Final Result [facility] [address] [place] [address] documented in this encounter Visit Diagnoses Diagnosis Encounter for general adult medical examination without abnormal findings documented in this encounter Additional Health Concerns Infection Onset Date Last Indicated Resolved Time MRSA Comment:Added from external infection. Source: [facility]. 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 Source: [facility]. 11/26/2023 02/09/2025 MDRO 08/22/2024 08/22/2024 COVID-19 Rule-Out [...] documented as of this encounter Care Teams Kitchen Stewardess Relationship Specialty Start Date End Date Favian Sandy DO [address] [place] [address] [place] [address] PCP - General 07/05/24 Navya Man MD [address] [address] Consulting Physician Hematology 09/28/24 Cathleen Pena LPN [facility] None TCM Nurse 10/15/24 11/06/24 Phyllis Arango, RN CH-VASCULAR & INTERVENTIONAL RADIOLOGY None Registered Nurse 10/22/24 10/22/24 Camilla Guerrier, RN VALUE-BASED TRANSFORMATION PROGRAM [place], [place] Warehouse Material Handler 01/08/25 01/18/25 Annette Gomes, RN None None Registered Nurse 01/18/25 02/27/25 documented as of this encounter
--- OUTSIDE RECORDS SUMMARY | 2025-02-28 18:25 | XMS_ITS | Encounter Summary ---
Author Organization Healthcare Address [address] [place] [address] Care Team Providers Care Manager Life Sciences Name Role Phone DuFavian Wilfrido SIU Primary Care Provider [phone] Navya Man MD Unavailable Annette Gomes RN [...] any time in the past 12 m [facility], were you homeless or living in a fdc (including now)? No 02/06/2025 [facility] Utilities Answer Date Recorded In the past 12 months has th e [employer], gas, oil, or water company threatened to [...] drink first t geri in the morning (EYE-MUSIC PRODUCER) to steady your nerves or to get rid of a hangover? 0 01/17/2025 CAGE Questionnaire Score 0 025 Sex and Gender Information Value Date Recorded Sex Assigned at Male 03/16/2024 2:12 PM EST Legal Sex Male 7:40 PM EDT Gender Identity Not on file Sexual Orientation Not on file documented as of this encounter Functional Status * Communicable Disease Screening Question Answer Date of Assessment Author Have you been in contact with someone who was sick? No / Unsure 02/05/2025 2:22 PM EST Christina Ratliff RN Do you have any of the following new or worsening symptoms? None of these 02/05/2025 2:22 PM Christina Smith RN * Travel Screening Question Answer Date of Assessment Author Have you traveled internationally or domestically in the last month? No 02/05/2025 2:22 PM Christina Smith RN documented as of this encounter Mental Status * Communicable Disease Screening Question Answer Entry Date Author Have you been in contact with someone who was sick? No / Unsure 02/05/2025 2:22 PM Christina Smith RN Do you have any of the following new or worsening symptoms? None of these 02/05/2025 2:22 PM Christina Smith RN * Travel Screening Question Answer Entry Date Author Have you traveled internatio april or domestically in the last month? No 02/05/2025 2:22 PM Christina Smith RN documented in this encounter Plan of Treatment Upcoming Encounters Date Type Department Care Team (Late st Contact Info) Description 03/15/2025 3:30 PM EST Clinical Support [facility] Hematology/BMT and Cellular Therapy Program [address] [place] [address] 03/15/2025 4:00 PM EST Office Visit [facility] Hematology/BMT and Cellular Therapy Program [address] [place] [address] Parth Fitzgerald MD 800 [place] [address] 03/28/2025 1:40 PM EST Office Visit [facility] [place] [address] [place] [address] Duglas Greer MD 800 [place] [address] 07/18/2025 1:40 PM EDT Office Visit [place] [facility] [address], [address] [place] [address] Diana Alonzo, JAMAL [address] [place] [address] documented as of this encounter Visit Diagnoses Not on filedocumented in this encounter Additional Health Concerns Infection Onset Date Last Indicated Resolved Time MRSA Comment:Added from external infection. Source: [facility]. 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 Source: [facility]. 11/26/2023 02/09/2025 MDRO 08/22/2024 08/22/2024 Rhinovirus [...] documented as of this encounter Care Teams Manager Life Sciences Relationship Specialty Start Date End Date Favian Sandy DO [address] [place] [address] PCP - General 07/05/24 Navya Man MD [address] [address] Consulting Physician Hematology 09/28/24 Annette Gomes, RN None None Registered Nurse 01/18/25 02/27/25 documented as of this encounter
--- OUTSIDE RECORDS SUMMARY | 2025-02-28 18:25 | XMS_ITS ---
Author Organization [facility] Address [address] [place] [address] Care Team Providers Care Programming Instructor Name Role Phone Favian Sandy DO Primary Care Provider [phone] Navya Man MD Unavailable Transitional Care Management Status:Closed (Closed) Program category:Transitional Care Management - [facility] Start date:01/08/2025 Enrollment date:01/08/2025 Enrollment reason:Identified using hospital discharge data End date:01/18/2025 Close reason:Patient Readmitted Overview This episode type is for outpatient care managers enrolling patients in the [facility] Transitional Care Management program. Continued Care and Services Coordination
--- OUTSIDE RECORDS SUMMARY | 2025-02-28 18:25 | XMS_ITS | Encounter Summary ---
Author Organization [facility] Address [address] [place] [address] Care Team Providers Care Cleaning Machine Operator Name Role Phone DuFavian Wilfrido SIU Primary Care Provider Navya Man MD Unavailable Encounter Details Date Type Department Care Team (Late st Contact Info) Description 12/31/2024 Patient Outreach [place] [facility] Special[facility] [address], 2[address] [place] [address] Jackie Menard Social History Tobacco Use Types [...] in the past [address] [facility], were you homeless or living in a snf (including now)? No 12/19/2024 [facility] Utilities Answer Date Recorded In the [...] drink first t geri in the morning (EYE-HEAD OF SALES) to steady your nerves or to get [...] 03/15/2025 3:30 PM EST Clinical Support [facility] CC Hematology/BMT and Cellular Therapy Program [address] [place] [address] [place] [phone] 03/15/2025 4:00 PM EST Office Visit [facility] Hematology/BMT and Cellular Therapy Program [address] [place] [address] [place] [phone] Parth Fitzgerald MD [address] [place] [address] 03/28/2025 1:40 PM EST Office Visit [facility] [place] Braydon 800 [facility]. [address] [place] [phone] Duglas Greer MD [address] [place] [phone] 07/18/2025 1:40 PM EDT Office Visit [place] [facility] Medicine Special[facility] [address], 2nd [place] [address] Diana Alonzo, JAMAL [address] [place] [address] documented as of this encounter [...] documented as of this encounter Care Teams Cleaning Machine Operator Relationship Specialty Start Date End Date Favian Sandy DO 12[address] [facility] [address] [place] [address] PCP - General 07/05/24 Navya Man MD [address] [place] [phone] Consulting Physician Hematology 09/28/24 documented as of this encounter
--- OUTSIDE RECORDS SUMMARY | 2025-02-28 18:25 | XMS_ITS | Encounter Summary ---
Author Organization Healthcare Address [address] [place] [address] Care Team Providers Care Fern Cutter Name Role Phone DuFavian Wilfrido SIU Primary Care Provider [phone] Navya Man MD Unavailable Reason for Visit * Reason Onset Date Comments Prior-authorization/insurance Verification 01/03 Encounter Details Date Type Department Care Team ([facility] Contact Info) Description 01/03/2025 Telephone [facility] [address] [place] [phone] Aric Lee MD [address] [place] [address] Prior-authorization/ins urance Verification Social History Tobacco Use [...] living in a prison (including now)? No 12/19/2024 [facility] Utilities Answer Date Recorded In the [...] drink first t geri in the morning (EYE-LANG INTERPRETER) to steady your nerves or to [...] Upcoming Encounters Date Type Department Care Team ([facility] st Contact Info) Description 03/15/2025 3:30 PM EST Clinical Support [facility] Hematology/BMT and Cellular Therapy Program [address] [place] [phone] 03/15/2025 4:00 PM EST Office Visit [facility] Hematology/BMT and Cellular Therapy Program [address] [place] [phone] Parth Fitzgerald MD 800 [place] [address] 03/28/2025 1:40 PM EST Office Visit [facility] [place]don 800 [facility]. [address] [place] [phone] Duglas Greer MD [address] [place] [phone] 07/18/2025 1:40 PM EDT Office Visit [place] [facility] Special[facility] [address], 2nd [place] [phone] Diana Alonzo, PA [address] [place] [address] documented as of this encounter Visit Diagnoses Not on filedocumented in this encounter Additional Health Concerns Infection Onset Date Last Indicated Resolved Time MRSA Comment:Added from external infection. Source: [facility]. 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 Source: [facility]. 11/26/2023 02/09/2025 MDRO 08/22/2024 08/22/2024 Assessment Noted Time PHQ-9 Depression Total Score: 0 09/01/19 12:42 PM EDT A fall risk assessment has been complete d for the patient 09/27/2024 2:07 PM EDT A Body Mass Index follow-up plan has been documented for the patient 01/05/2025 12:57 PM EDT documented as of this encounter Care Teams Fern Cutter Relationship Specialty Start Date End Date Favian Sandy DO [address] [place] [facility] [address] [place] [address] PCP - General 07/05/24 Navya Man MD [address] [place] [phone] Consulting Physician Hematology 09/28/24 documented as of this encounter
--- OUTSIDE RECORDS SUMMARY | 2025-02-28 18:26 | XMS_ITS | Encounter Summary ---
Author Organization Healthcare Address [address] [place] [address] Care Team Providers Care Architectural Drafter Name Role Phone DuFavian Wilfrido SIU Primary Care Provider [phone] Navya Man MD Unavailable Annette Gomes RN [...] any time in the past 12 m [facility], were you homeless or living in a [place] health [place] facility (including now)? No 01/18/2025 [facility] Utilities Answer Date Recorded In the past 12 months has e [employer], gas, oil, or water company threatened to [...] drink first t geri in the morning (EYE-DERMATOLOGY SPECIALIST) to steady your nerves or to get [...] Upcoming Encounters Date Type Department Care Team ([facility] st Contact Info) Description 03/15/2025 3:30 PM EST Clinical Support [facility] CC Hematology/BMT and Cellular Therapy Program [address] [place] [phone] 03/15/2025 4:00 PM EST Office Visit [facility] CC Hematology/BMT and Cellular Therapy Program [address] [place] [phone] Parth Fitzgerald MD 800 [place] [address] 03/28/2025 1:40 PM EST Office Visit [facility] [place] 800 [facility]. [address] [place] [phone] Duglas Greer MD [address] [place] [address] 07/18/2025 1:40 PM EDT Office Visit [place] [facility] [address] 2[address] [place] [phone] Diana Alonzo PA [address] [place] [address] documented as of this encounter Visit Diagnoses Not on filedocumented in this encounter Additional Health Concerns Infection Onset Date Last Indicated Resolved Time MRSA Comment:Added from external infection. Source: [facility]. 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 Source: [facility]. 11/26/2023 02/09/2025 MDRO 08/22/2024 08/22/2024 C. [...] documented as of this encounter Care Teams Architectural Drafter Relationship Specialty Start Date End Date Favian Sandy DO [address] [place] [facility] [address] [place] [address] PCP - General 07/05/24 Navya Man MD [address] [phone] Consulting Physician Hematology 09/28/24 Annette Gomes, RN None None Registered Nurse 01/18/25 02/27/25 documented as of this encounter
--- OUTSIDE RECORDS SUMMARY | 2025-02-28 18:26 | XMS_ITS | Encounter Summary ---
Author Organization [facility] Address [address] [place] [address] Care Team Providers Care Publication Director Name Role Phone DuFavian matamoros Wilfrido DO Primary Care Provider [phone] Navya Man MD Unavailable Annette Gomes RN Unavailable Unavailable Encounter Details Date Type Department Care Team (Late st Contact Info) Description 02/21/2025 Orders Only [facility] Hematology/BMT and Cellular Therapy Program [address] [facility] [place] [address] Seema Atkinson MD 800 [facility] [address] [place] [address] Sickle cell disease with crisis and other [...] any time in the past 12 m [facility], were you homeless or living in a custodial (including now)? No 02/06/2025 [facility] Utilities Answer Date Recorded In the past 12 months has th e [employer], [employer] oil, or water [employer] threatened to shut off services in your [...] drink first t geri in the morning (EYE-SCARF AND ANNEAL OPERATOR) to steady your nerves or to [...] Description 03/15/2025 3:30 PM EST Clinical Support [facility] Hematology/BMT and Cellular Therapy Program [address] [place] [phone] 03/15/2025 4:00 PM EST Office Visit [facility] Hematology/BMT and Cellular Therapy Program [address] [place] [phone] Parth Fitzgerald MD [address] [place] [address] 03/28/2025 1:40 PM EST Office Visit [facility] [place] [address] [place] [phone] Duglas Greer MD [address] [place] [phone] 07/18/2025 1:40 PM EDT Office Visit [facility] Medicine Specialties [address], [address] [place] [address] Diana Alonzo PA [address] [facility] [address] [place] [address] documented as of this encounter Visit Diagnoses Diagnosis Sickle cell disease with crisis and other complication (CMS/HCC)- Primary documented in this encounter Additional Health Concerns Infection Onset Date Last Indicated Resolved Time MRSA Comment:Added from external infection. Source: [facility]. 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 Source: [facility]. 11/26/2023 02/09/2025 MDRO 08/22/2024 08/22/2024 Rhinovirus [...] documented as of this encounter Care Teams Publication Director Relationship Specialty Start Date End Date Favian Sandy DO 1210 [facility] [address] [place] [address] PCP - General 07/05/24 Navya Man MD [address] [place] [address] Consulting Physician Hematology 09/28/24 Annette Gomes, RN None None Registered Nurse 01/18/25 02/27/25 documented as of this encounter
--- OUTSIDE RECORDS SUMMARY | 2025-02-28 18:26 | XMS_ITS | Encounter Summary ---
Author Organization [facility] Address [address] [place] [address] Care Team Providers Care Supervisor Grinding Name Role Phone DuFavian matamoros Wilfrido SIU Primary Care Provider [phone] Navya Man MD Unavailable Camilla Guerrier RN Unavailable Unavailable Annette Gomes RN Unavailable Unavailable Reason for Referral * Consultation (Routine) - Authorized Specialty Diagnoses / Procedures Referred By Contac t Referred To Contact Diagnoses Encounter for support and coordination of transition of care POPULATION [address] [address] Phone: tel: [address] [address] Phone: tel: Referral ID Status Reason Start Date Expiration Date Visits Requested Visits Authorized [id number] Authorized Other Co-Managemen t of Problem 07/20/2026 1 1 Scheduling Instructions Previous LINK patient Encounter Details Date Type Department Care Team (Late st Contact Info) Description 01/18/2025 Patient Outreach [address] [address] Ileana Terry Social History Tobacco [...] any time in the past 12 m [facility], were you homeless or living in a assisted (including now)? No 01/18/2025 [facility] Utilities Answer Date Recorded In the past 12 months has [employer], gas, oil, or water [employer] threatened to shut off services in your [...] drink first t geri in the morning (EYE-POULTRY EVISCERATOR) to steady your nerves or to get [...] [] [facility] PCP [x] Outside PCP - [facility] [x] Confirmed/Updated Patient's Contact Information, Voicemail, Preferred [...] Rehab [x] Home [] Other: Ileana Terry, RN OPERATING ROOM, MECHANICAL ASSEMBLY Population Health Navigator [email or web address] documented in this encounter Plan of Treatment Upcoming Encounters Date Type Department Care Team ([facility] st Contact Info) Description 03/15/2025 3:30 PM EST Clinical Support [facility] Hematology/BMT and Cellular Therapy Program [address] [place] [phone] 03/15/2025 4:00 PM EST Office Visit [facility] Hematology/BMT and Cellular Therapy Program [address] [place] [phone] Parth Fitzgerald MD 800 [place], [place] [phone] 03/28/2025 1:40 PM EST Office Visit [facility] [place] 800 [facility]. [address] [place] [phone] Duglas Greer MD 800 [place] [address] 07/18/2025 1:40 PM EDT Office Visit [place] [facility] [address], [address] [place] [address] Diana Alonzo PA [address] [place] [address] Scheduled Referrals Name Type Priority Associated Diagnoses Orde r Schedule Ambulatory referral to [facility] Outpatient Referral Routine Encounter for support [...] [facility] 11/26/2023 02/09/2025 MDRO 08/22/2024 08/22/2024 C. [...] documented as of this encounter Care Teams Supervisor Grinding Relationship Specialty Start Date End Date Favian Sandy DO [facility] [address] [place] [address] PCP - General 07/05/24 Navya Man MD [address] [phone] Consulting Physician Hematology 09/28/24 Camilla Guerrier, RN VALUE-BASED TRANSFORMATION PROGRAM [place] [facility] 01/08/25 01/18/25 Annette Gomes RN None None Registered Nurse 01/18/25 02/27/25 documented as of this encounter
--- OUTSIDE RECORDS SUMMARY | 2025-02-28 18:26 | XMS_ITS | Encounter Summary ---
Author Organization [facility] Address [address] [place] [address] Care Team Providers Care Director Agricultural Services Name Role Phone DuFavian Wilfrido SIU Primary Care Provider [phone] Navya Man MD Unavailable Camilla Guerrier RN Unavailable Unavailable Encounter Details Date Type Department Care Team (Late st Contact Info) Description 01/07/2025 Telephone [facility] [address] [place] [address] Papo Campo, PharmD None None [...] living in a alf (including now)? No 01/08/2025 [facility] Utilities Answer Date Recorded In [...] drink first t geri in the morning (EYE-POTLINE MONITOR) to steady your nerves or to get [...] we have Rx for Vosevi sent to [facility], so we can onboard, educate and get medication shipped to patient. Thanks Dc documented in this encounter Plan of Treatment Upcoming Encounters Date Type Department Care Team (Late st Contact Info) Description 03/15/2025 3:30 PM EST Clinical Support [facility] Hematology/BMT and Cellular Therapy Program [address] [place] [phone] 03/15/2025 4:00 PM EST Office Visit [facility] Hematology/BMT and Cellular Therapy Program [address] [place] [phone] Parth Fitzgerald MD [address] [place] [address] 03/28/2025 1:40 PM EST Office Visit [facility] [place] 800 [facility]. [address] [place] [phone] Duglas Greer MD [address] [place] [address] 07/18/2025 1:40 PM EDT Office [facility] [address], [address] [place] [address] Diana Alonzo, PA [address] [place] [address] documented as of this encounter Visit Diagnoses Not on filedocumented in this encounter Additional Health Concerns Infection Onset Date Last Indicated Resolved Time MRSA Comment:Added from external infection. Source: [facility]. 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 Source: [facility]. 11/26/2023 02/09/2025 MDRO 08/22/2024 08/22/2024 Assessment Noted Time PHQ-9 Depression Total Score: 0 09/01/19 12:42 PM EDT A fall risk assessment has been complete d for the patient 09/27/2024 2:07 PM EDT A Body Mass Index follow-up plan has been documented for the patient 01/05/2025 12:57 PM EDT documented as of this encounter Care Teams Director Agricultural Services Relationship Specialty Start Date End Date Favian Sandy DO 1210 [facility] [address] [place] [address] PCP - General 07/05/24 Navya Man MD [address] [place] [phone] Consulting Physician Hematology 09/28/24 Camilla Guerrier, RN VALUE-BASED TRANSFORMATION PROGRAM [place] Supervisory It Specialist 01/08/25 01/18/25 documented as of this encounter
--- OUTSIDE RECORDS SUMMARY | 2025-02-28 18:26 | XMS_ITS | Encounter Summary ---
Author Organization [facility] Address [address] [place] [address] Care Team Providers Care Fly Frame Tender Name Role Phone Erica Sandyew Wilfrido SIU Primary Care Provider [phone] Navya Man MD Unavailable Encounter Details Date Type Department Care Team (Late st Contact Info) Description 01/07/2025 Orders Only [facility] [address], [address] [place] [address] Diana Alonzo, PA [address] [place] [address] Chronic hepatitis C without hepatic [...] living in a fpc (including now)? No 01/08/2025 [facility] Utilities Answer Date Recorded In [...] drink first t geri in the morning (EYE-HOME CARE MANAGER) to steady your nerves or to [...] Upcoming Encounters Date Type Department Care Team ([facility] st Contact Info) Description 03/15/2025 3:30 PM EST Clinical Support [facility] Hematology/BMT and Cellular Therapy Program [address] [place] [phone] 03/15/2025 4:00 PM EST Office Visit [facility] Hematology/BMT and Cellular Therapy Program [address] [place] [phone] Parth Fitzgerald MD 800 [place] [address] 03/28/2025 1:40 PM EST Office Visit [facility] [place] 800 [facility]. [address] [place] [phone] Duglas Greer MD [address] [place] [phone] 07/18/2025 1:40 PM EDT Office Visit [facility] [address], [address] [place] [phone] Diana Alonzo, PA [address] [place] [address] documented as of this encounter Visit Diagnoses [...] documented as of this encounter Care Teams Fly Frame Tender Relationship Specialty Start Date End Date Favian Sandy DO 1210 [place] [facility] [address] [place] [address] PCP - General 07/05/24 Navya Man MD [address] [place] [address] Consulting Physician Hematology 09/28/24 documented as of this encounter
--- OUTSIDE RECORDS SUMMARY | 2025-02-28 18:26 | XMS_ITS | Encounter Summary ---
Author Organization [facility] Address [address] [place] [address] Care Team Providers Care Plant Control Operator Name Role Phone DuFavian Wilfrido SIU Primary Care Provider [phone] Navya Man MD Unavailable Annette Gomes RN [...] any time in the past 12 m [facility], were you homeless or living in a usp (including now)? No 02/06/2025 [facility] Utilities Answer Date Recorded In the past 12 months has th e [employer], gas, oil, or water company threatened to [...] drink first t geri in the morning (EYE-SALES RECRUITING COORDINATOR) to steady your nerves or to [...] Assessment Author Have you been in contact wit h someone who was sick? No / Unsure 02/22/2025 12:32 PM Jax Patten Do you have any of the following new or worsening symptoms? None of these 02/22/2025 12:32 PM Jax Patten * Travel Screening Question Answer Date of Assessment Author Have you traveled internatio april or domestically in the last month? No 02/22/2025 12:32 PM Jax Hannon documented as of this encounter Mental Status * Communicable Disease Screening Question Answer Entry Date Author Have you been in contact wit h someone who was sick? No / Unsure 02/22/2025 12:32 PM Jax Patten Do you have any of the following new or worsening symptoms? None of these 02/22/2025 12:32 PM Jax Patten * Travel Screening Question Answer Entry Date Author Have you traveled internatio april or domestically in the last month? No 02/22/2025 12:32 PM Jax Hannon documented in this encounter Plan of Treatment Upcoming Encounters Date Type Department Care Team (Late st Contact Info) Description 03/15/2025 3:30 PM EST Clinical Support [facility] Hematology/BMT and Cellular Therapy Program [address] [place] [address] 03/15/2025 4:00 PM EST Office Visit [facility] Hematology/BMT and Cellular Therapy Program [address] [place] [address] Parth Fitzgerald MD 800 [place] [address] 03/28/2025 1:40 PM EST Office Visit [facility] [place] [address] [place] [address] Duglas Greer MD [address] [place] [address] 07/18/2025 1:40 PM EDT Office Visit [facility] [address], 2[address] [place] [address] Diana Alonzo PA [address] [place] [address] documented as of this encounter [...] as of this encounter Care Teams Plant Control Operator Relationship Specialty Start Date End Date Favian Sandy DO [address] [place] [address] [place] [address] PCP - General 07/05/24 Navya Man MD [address] [phone] Consulting Physician Hematology 09/28/24 Annette Gomes, RN None None Registered Nurse 01/18/25 02/27/25 documented as of this encounter
--- OUTSIDE RECORDS SUMMARY | 2025-02-28 18:26 | XMS_ITS | Encounter Summary ---
Author Organization [facility] Address [address] [id number] Care Team Providers Care Steel Die Printer Name Role Phone DuFavian Wilfrido SIU Primary Care Provider [phone] Navya Man MD Unavailable Camilla Guerrier RN Unavailable Unavailable Reason for Visit * Reason Onset Date Comments Med Refill 01/10/2025 Encounter Details Date Type Department Care Team (Late st Contact Info) Description 01/10/2025 Refill [facility] Hematology/BMT and Cellular Therapy Program [address] [place] [address] [place] [address] Parth Fitzgerald MD [address] [place] [address] Social History Tobacco Use Types Packs/Day Years [...] living in a custodial (including now)? No 01/08/2025 [facility] Utilities Answer Date Recorded In the past 12 months has th e [employer], gas, oil, or water [employer] threatened to shut off services in your [...] drink first t geri in the morning (EYE-MAINTENANCE HELPER UTILITY ENGINEER) to steady your nerves or to [...] Upcoming Encounters Date Type Department Care Team ([facility] st Contact Info) Description 03/15/2025 3:30 PM EST Clinical Support [facility] Hematology/BMT and Cellular Therapy Program [address] [place] [phone] 03/15/2025 4:00 PM EST Office Visit [facility] Hematology/BMT and Cellular Therapy Program [address] [place] [phone] Parth Fitzgerald MD [address] [place] [address] 03/28/2025 1:40 PM EST Office Visit [facility] [place] 800 [facility]. [address] [place] [phone] Duglas Greer MD 800 [place] [phone] 07/18/2025 1:40 PM EDT Office Visit [facility] Medicine Specialties [address], 2[address] [place] [phone] Diana Alonzo PA [address] [facility] [address] [place] [address] documented as of this encounter Visit Diagnoses Not on filedocumented in this encounter Additional Health Concerns Infection Onset Date Last Indicated Resolved Time MRSA Comment:Added from external infection. Source: [facility]. 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 Source: [facility]. 11/26/2023 02/09/2025 MDRO 08/22/2024 08/22/2024 Assessment Noted Time PHQ-9 Depression Total Score: 0 09/01/19 12:42 PM EDT A fall risk assessment has been complete d for the patient 09/27/2024 2:07 PM EDT A Body Mass Index follow-up plan has been documented for the patient 01/05/2025 12:57 PM EDT documented as of this encounter Care Teams Steel Die Printer Relationship Specialty Start Date End Date Favian Sandy DO [address] [place] [address] [address] [place] [address] PCP - General 07/05/24 Navya Man MD [address] [place] [address] Consulting Physician Hematology 09/28/24 Camilla Guerrier, RN VALUE-BASED TRANSFORMATION PROGRAM [place], [place] Fish Fryer 01/08/25 01/18/25 documented as of this encounter
--- OUTSIDE RECORDS SUMMARY | 2025-02-28 18:26 | XMS_ITS | Encounter Summary ---
Author Organization [facility] Address [address] [place] [address] Care Team Providers Care Crew Dispatcher Name Role Phone DuFavian matamoros Wilfrido SIU Primary Care Provider Navya Man MD Unavailable Camilla Guerrier RN Unavailable Unavailable Annette Gomes RN Unavailable Unavailable Encounter Details Date Type Department Care Team (Late st Contact Info) Description 01/18/2025 Referral Triage [facility] [address] [facility] [address], [address] [place] [address] Annette Gomes, NASEEM None None [...] in a chcf (including now)? No 01/18/2025 [facility] Utilities Answer Date Recorded In [...] drink first t geri in the morning (EYE-TABLE FILLER) to steady your nerves or to get [...] Description 03/15/2025 3:30 PM EST Clinical Support [facility] Hematology/BMT and Cellular Therapy Program [address] [place] [address] [place] [phone] 03/15/2025 4:00 PM EST Office Visit [facility] Hematology/BMT and Cellular Therapy Program [address] [place] [address] [place] [phone] Parth Fitzgerald MD [address] [place] [address] 03/28/2025 1:40 PM EST Office Visit [facility] [place] 800 [facility]. [address] [place] [address] Duglas Greer MD [address] [place] [address], [place] [address] 07/18/2025 1:40 PM EDT Office Visit [facility] [address], 2nd [place] [address] Diana Alonzo, JAMAL [address] [place] [address] documented as of this encounter Visit Diagnoses Not on filedocumented in this encounter Additional Health Concerns Infection Onset Date Last Indicated Resolved Time MRSA Comment:Added from external infection. Source: [facility]. 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 Source: [facility]. 11/26/2023 02/09/2025 MDRO 08/22/2024 08/22/2024 C. difficile [...] documented as of this encounter Care Teams Crew Dispatcher Relationship Specialty Start Date End Date Favian Sandy DO [address] [place] [address] PCP - General 07/05/24 Navya Man MD [address] [facility] [address] [place] [address] Consulting Physician Hematology 09/28/24 Camilla Guerrier, RN VALUE-BASED TRANSFORMATION PROGRAM [place] MD Medicine Worker 01/08/25 01/18/25 Annette Gomes, RN None None Registered Nurse 01/18/25 02/27/25 documented as of this encounter
--- OUTSIDE RECORDS SUMMARY | 2025-02-28 18:26 | XMS_ITS | Encounter Summary ---
Author Organization Healthcare Address [address] [place] [address] Care Team Providers Care Pipe Fitter Welding Name Role Phone DuFavian Wilfrido SIU Primary Care Provider [phone] Navya Man MD Unavailable Annette Gomes RN [...] in the past 12 m [facility], were you homeless or living in a mcfp (including now)? No 02/06/2025 [facility] Utilities Answer Date Recorded In the past 12 months has th e [employer], gas, oil, or water company threatened to [...] first t geri in the morning (EYE-SENIOR CYTOGENETIC TECHNOLOGIST) to steady your nerves or to get [...] Upcoming Encounters Date Type Department Care Team ([facility] st Contact Info) Description 03/15/2025 3:30 PM EST Clinical Support [facility] CC Hematology/BMT and Cellular Therapy Program [address] [place] [phone] 03/15/2025 4:00 PM EST Office Visit [facility] CC Hematology/BMT and Cellular Therapy Program [address] [place] [phone] Parth Fitzgerald MD [address] [place] [address] 03/28/2025 1:40 PM EST Office Visit [facility] [place] 800 [facility]. [address] [place] [phone] Duglas Greer MD [address] [place] [address] 07/18/2025 1:40 PM EDT Office Visit [place] [facility] [address], 2nd [place] [phone] Diana Alonzo PA [address] [place] [address] documented as of this encounter Visit Diagnoses Not on filedocumented in this encounter Additional Health Concerns Infection Onset Date Last Indicated Resolved Time MRSA Comment:Added from external infection. Source: [facility]. 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 Source: [facility]. 11/26/2023 02/09/2025 MDRO 08/22/2024 08/22/2024 Rhinovirus 01/17/2025 02/10/2025 Assessment Noted Time PHQ-9 Depression Total Score: 0 09/01/19 12:42 PM EDT A fall risk assessment has been complete d for the patient 09/27/2024 2:07 PM EDT A Body Mass Index follow-up plan has been documented for the patient 02/13/2025 1:18 PM EST documented as of this encounter Care Teams Pipe Fitter Welding Relationship Specialty Start Date End Date Favian Sandy DO 12[address] [place] [facility] [address] [place] [address] PCP - General 07/05/24 Navya Man MD [address] [address] Consulting Physician Hematology 09/28/24 Annette Gomes, RN None None Registered Nurse 01/18/25 02/27/25 documented as of this encounter
--- OUTSIDE RECORDS SUMMARY | 2025-02-28 18:26 | XMS_ITS | Encounter Summary ---
Author Organization Healthcare Address [address] [place] [address] Care Team Providers Care Circular Knife Cutter Machine Name Role Phone DuFavian Wilfrido SIU Primary Care Provider [phone] Navya Man MD Unavailable Camilla Guerirer RN Unavailable Unavailable Encounter Details Date Type Department Care Team (Late st Contact Info) Description 01/16/2025 Orders Only [facility] [address] [place] [address] Diana Alonzo PA [address] [place] [address] Chronic hepatitis C without hepatic [...] any time in the past 12 m [facility], were you homeless or living in a alf (including now)? No 01/08/2025 [facility] [...] drink first t geri in the morning (EYE-PLATE GRAINER) to steady your nerves or to get [...] Upcoming Encounters Date Type Department Care Team ([facility] st Contact Info) Description 03/15/2025 3:30 PM EST Clinical Support [facility] Hematology/BMT and Cellular Therapy Program [address] [place] [phone] 03/15/2025 4:00 PM EST Office Visit [facility] Hematology/BMT and Cellular Therapy Program [address] [place] [phone] Parth Fitzgerald MD [address] [place] [address] 03/28/2025 1:40 PM EST Office Visit [facility] [place] [address] [place] [phone] Duglas Greer MD [address] [place] [address] 07/18/2025 1:40 PM EDT Office Visit [facility] [address], [address] [place] [phone] Diana Alonzo, PA [address] [place] [address] Scheduled Orders Name Type Priority Associated Diagnoses [...] documented as of this encounter Care Teams Circular Knife Cutter Machine Relationship Specialty Start Date End Date Favian Sandy DO [address] [place] [address] [place] [address] PCP - General 07/05/24 Navya Man MD [address] [place] [phone] Consulting Physician Hematology 09/28/24 Iglehart, Camilla J, RN VALUE-BASED TRANSFORMATION PROGRAM [place] Workers Supervisor 01/08/25 01/18/25 documented as of this encounter
--- OUTSIDE RECORDS SUMMARY | 2025-02-28 18:26 | XMS_ITS | Encounter Summary ---
Author Organization [facility] Address [address] [place] [address] Care Team Providers Care Direct Support Worker Name Role Phone DuFavian Wilfrido SIU Primary Care Provider [phone] Navya Man MD Unavailable Camilla Guerrier RN [...] in a long term (including now)? No 01/18/2025 [facility] Utilities Answer Date Recorded In the past 12 months has e [employer], gas, oil, or water company threatened to [...] drink first t geri in the morning (EYE-CALL CENTER OPERATIONS MANAGER) to steady your nerves or to [...] someone who was sick? No / Unsure 01/17/2025 1:32 PM Margaret Lopez RN Do you have any of the following new or worsening symptoms? Cough;Loss of smell 01/17/2025 1:32 PM Margaret Lopez RN * Travel Screening Question Answer Date of Assessment Author Have you traveled internationally or domestically in the last month? No 01/17/2025 1:32 PM Margaret Lopez RN documented as of this encounter Mental Status * Communicable Disease Screening Question Answer Entry Date Author Have you been in contact with someone who was sick? No / Unsure 01/17/2025 1:32 PM Margaret Lopez RN Do you have any of the following new or worsening symptoms? Cough;Loss of smell 01/17/2025 1:32 PM Margaret Lopez RN * Travel Screening Question Answer Entry Date Author Have you traveled internatio april or domestically in the last month? No 01/17/2025 1:32 PM Margaret Lopez RN documented in this encounter Plan of Treatment Upcoming Encounters Date Type Department Care Team (Late st Contact Info) Description 03/15/2025 3:30 PM EST Clinical Support [facility]ology/BMT and Cellular Therapy Program [address] [place] [address] 03/15/2025 4:00 PM EST Office Visit [facility]ology/BMT and Cellular Therapy Program [address] [place] [address] Parth Fitzgerald MD [address] [place] [address] 03/28/2025 1:40 PM EST Office Visit [facility] [place] [address] [place] [address] Duglas Greer MD [address] [place] [address] 07/18/2025 1:40 PM EDT Office Visit [facility] Medicine Specialties [address] [place] [address] Diana Alonzo, PA [address] [place] [address] documented as of this encounter Visit Diagnoses Not on filedocumented in this encounter Additional Health Concerns Infection Onset Date Last Indicated Resolved Time MRSA Comment:Added from external infection. Source: [facility]. 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 Source: [facility]. 11/26/2023 02/09/2025 MDRO 08/22/2024 08/22/2024 COVID-19 [...] documented as of this encounter Care Teams Direct Support Worker Relationship Specialty Start Date End Date Favian Sandy DO [address]10 [facility] [place] [facility] [address] [place] [address] PCP - General 07/05/24 Navya Man MD [address] [phone] Consulting Physician Hematology 09/28/24 Camilla Guerrier, RN VALUE-BASED TRANSFORMATION PROGRAM [place], [place] Form Raiser 01/08/25 01/18/25 documented as of this encounter
--- OUTSIDE RECORDS SUMMARY | 2025-02-28 18:26 | XMS_ITS | Encounter Summary ---
Author Organization [facility] Address [address] [place] [address] Care Team Providers Care Complex Human Resources Manager Name Role Phone DuFavian Wilfrido SIU Primary Care Provider [phone] Navya Man MD Unavailable Camilla Guerrier RN Unavailable Unavailable Encounter Details Date Type Department Care Team (Late st Contact Info) Description 01/16/2025 Telephone [facility] A Interventional Radiology [address] [place] [address] Joann Posey, RN None None Social History [...] in a care home (including now)? No 01/08/2025 [facility] Utilities Answer Date Recorded In the past 12 months has th e [employer], gas, oil, or water company threatened to [...] drink first t geri in the morning (EYE-CANAL TENDER) to steady your nerves or to [...] at midnight the night before the appointment -automobile drivers required before and after appointment - arrival time: 9:30 -hold eliquis 48 hours before procedure -Patient confirmed that he sis aware of the location and directions to the appointment. Patient instructed to call back with any questions. documented in this encounter Plan of Treatment Upcoming Encounters Date Type Department Care Team ([facility] st Contact Info) Description 03/15/2025 3:30 PM EST Clinical Support [facility] CC Hematology/BMT and Cellular Therapy Program [address] [place] [address] [place] [address] 03/15/2025 4:00 PM EST Office Visit [facility] CC Hematology/BMT and Cellular Therapy Program [address] [place] [phone] Parth Fitzgerald MD [address] [place] [address] 03/28/2025 1:40 PM EST Office Visit [facility] [place]don 800 [facility]. [address] [place] [phone] Duglas Greer MD [address] [place] [address] 07/18/2025 1:40 PM EDT Office Visit [facility] [address] [place] [address] Diana Alonzo PA [address] [place] [address] documented as of this encounter Visit Diagnoses Not on filedocumented in this encounter Additional Health Concerns Infection Onset Date Last Indicated Resolved Time MRSA Comment:Added from external infection. Source: [facility]. 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 Source: [facility]. 11/26/2023 02/09/2025 MDRO 08/22/2024 08/22/2024 Assessment Noted Time PHQ-9 Depression Total Score: 0 09/01/19 12:42 PM EDT A fall risk assessment has been complete d for the patient 09/27/2024 2:07 PM EDT A Body Mass Index follow-up plan has been documented for the patient 01/05/2025 12:57 PM EDT documented as of this encounter Care Teams Complex Human Resources Manager Relationship Specialty Start Date End Date Favian Sandy DO [address] [place] [address] PCP - General 07/05/24 Navya Man MD [address] [facility] [address] [place] [address] Consulting Physician Hematology 09/28/24 Camilla Guerrier, RN VALUE-BASED TRANSFORMATION PROGRAM [place] Needle Molder 01/08/25 01/18/25 documented as of this encounter
--- OUTSIDE RECORDS SUMMARY | 2025-02-28 18:26 | XMS_ITS | Encounter Summary ---
Author Organization Healthcare Address [address] [place] [address] Care Team Providers Care Supervisor Cytogenetic Laboratory Name Role Phone DuFavian Wilfrido SIU Primary Care Provider [phone] Navya Man MD Unavailable Annette Gomes RN [...] living in a jail (including now)? No 02/06/2025 [facility] Utilities Answer Date Recorded In the past 12 months has th e [employer], gas, oil, or water company threatened to [...] drink first t geri in the morning (EYE-LATENT PRINT EXAMINER) to steady your nerves or to get rid of a hangover? 0 01/17/2025 CAGE Questionnaire Score 0 025 Sex and Gender Information Value Date Recorded Sex Assigned at Male 03/16/2024 2:12 PM EST Legal Sex Male 7:40 PM EDT Gender Identity Not on file Sexual Orientation Not on file documented as of this encounter Functional Status * Travel Screening Question Answer Date of Assessment Author Have you traveled internatio april or domestically in the last month? No 02/18/2025 12:48 PM EST Mych art, Generic documented as of this encounter Mental Status * Travel Screening Question Answer Entry Date Author Have you traveled internatio april or domestically in the last month? No 02/18/2025 12:48 PM EST Mych art, Generic documented in this encounter Plan of Treatment Upcoming Encounters Date Type Department Care Team (Late st Contact Info) Description 03/15/2025 3:30 PM EST Clinical Support [facility] Hematology/BMT and Cellular Therapy Program [address] [place] [phone] 03/15/2025 4:00 PM EST Office Visit [facility] Hematology/BMT and Cellular Therapy Program [address] [place] [phone] Parth Fitzgerald MD [address] [place] [address] 03/28/2025 1:40 PM EST Office Visit [facility] [place] Braydon [address] [facility]. [address] [place] [phone] Duglas Greer MD [address] [place] [address] 07/18/2025 1:40 PM EDT Office Visit [facility] Medicine Specialties [address], [address] [place] [phone] Diana Alonzo PA [address] [facility] [address] [place] [phone] documented as of this encounter Visit Diagnoses [...] as of this encounter Care Teams Supervisor Cytogenetic Laboratory Relationship Specialty Start Date End Date Favian Sandy DO [address] [place] [facility] [address] [place] [address] PCP - General 07/05/24 Navya Man MD [address] [place] [phone] Consulting Physician Hematology 09/28/24 Annette Gomes, RN None None Registered Nurse 01/18/25 02/27/25 documented as of this encounter
--- OUTSIDE RECORDS SUMMARY | 2025-02-28 18:26 | XMS_ITS | Encounter Summary ---
Author Organization [facility] Address [address] [place] [address] Care Team Providers Care Bag Shop Worker Name Role Phone DuFavian matamoros Wilfrido SIU Primary Care Provider [phone] Navya Man MD Unavailable Annette Gomes RN Unavailable Unavailable Reason for Visit * Reason Comments TCM Encounter Details Date Type Department Care Team (Late st Contact Info) Description 02/15/2025 Patient Outreach [facility] [address], [address] [place] [address] Annette Gomes, RN None None [...] any time in the past 12 m [facility], were you homeless or living in a custodial (including now)? No 02/06/2025 [facility] Utilities Answer Date Recorded In the [...] drink first t geri in the morning (EYE-MASSAGE OPERATOR) to steady your nerves or to [...] Entry Date Author Outreach Reason Program Enrollment/Intake 02/19/2025 10:03 AM Annette Garrett RN [facility] Reason For Encounter TCM 02/19/2025 10:03 AM EST Annette Gomes RN documented in this encounter Miscellaneous Notes [...] CC Hematology/BMT and Cellular Therapy Program [address] [facility] [place] [phone] 03/15/2025 4:00 PM EST Office Visit [facility] Hematology/BMT and Cellular Therapy Program [address] [facility] [place] [phone] Parth Fitzgerald MD 800 [place], [place] [phone] 03/28/2025 1:40 PM EST Office Visit [facility] [place] Braydon [address] [facility]. [address] [place] [phone] Duglas Greer MD 800 [place] [address] 07/18/2025 1:40 PM EDT Office Visit [facility] Medicine Specialties [address] [place] [phone] Diana Alonzo, JAMAL [address] [place] [phone] documented as of this encounter Visit Diagnoses Not on filedocumented in this encounter Additional Health Concerns Infection Onset Date Last Indicated Resolved Time MRSA Comment:Added from external infection. Source: [facility]. 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 Source: [facility]. 11/26/2023 02/09/2025 MDRO 08/22/2024 [...] as of this encounter Care Teams Bag Shop Worker Relationship Specialty Start Date End Date Favian Sandy DO [address] [place] [address] [place] [address] PCP - General 07/05/24 Navya Man MD [address] [address] Consulting Physician Hematology 09/28/24 Annette Gomes, RN None None Registered Nurse 01/18/25 02/27/25 documented as of this encounter
--- OUTSIDE RECORDS SUMMARY | 2025-02-28 18:26 | XMS_ITS | Encounter Summary ---
Author Organization Healthcare Address [address] [place] [address] Care Team Providers Care Store Stocker Name Role Phone DuFavian Wilfrido SIU Primary Care Provider [phone] Navya Man MD Unavailable Annette Gomes RN [...] time in the past 12 m [facility], were you homeless or living in a care home (including now)? No 02/06/2025 [facility] Utilities Answer Date Recorded In the past 12 months has th e [employer], gas, oil, or water company threatened to [...] drink first t geri in the morning (EYE-PHOTORESIST CONTACT PRINTER) to steady your nerves or to get [...] Upcoming Encounters Date Type Department Care Team ([facility] st Contact Info) Description 03/15/2025 3:30 PM EST Clinical Support [facility] CC Hematology/BMT and Cellular Therapy Program [address] [place] [phone] 03/15/2025 4:00 PM EST Office Visit [facility] CC Hematology/BMT and Cellular Therapy Program [address] [place] [phone] Parth Fitzgerald MD [address] [place] [address] 03/28/2025 1:40 PM EST Office Visit [facility] [place] 800 [facility]. [address] [place] [phone] Duglas Greer MD [address] [place] [address] 07/18/2025 1:40 PM EDT Office Visit [facility] [address] [place] [phone] Diana Alonzo PA [address] [place] [address] documented as of this encounter Visit Diagnoses Not on filedocumented in this encounter Additional Health Concerns Infection Onset Date Last Indicated Resolved Time MRSA Comment:Added from external infection. Source: [facility]. 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 Source: [facility]. 11/26/2023 02/09/2025 MDRO 08/22/2024 08/22/2024 Rhinovirus [...] documented as of this encounter Care Teams Store Stocker Relationship Specialty Start Date End Date Favian Sandy DO [address] [place] [address] [place] [address] PCP - General 07/05/24 Navya Man MD [address] [address] Consulting Physician Hematology 09/28/24 Annette Gomes, RN None None Registered Nurse 01/18/25 02/27/25 documented as of this encounter
--- OUTSIDE RECORDS SUMMARY | 2025-02-28 18:26 | XMS_ITS | Encounter Summary ---
Author Organization Healthcare Address [address] [place] [address] Care Team Providers Care Certified Optician Name Role Phone DuFavian Wilfrido SIU Primary Care Provider [phone] Navya Man MD Unavailable Annette Gomes RN [...] any time in the past 12 m [facility], were you homeless or living in a jail (including now)? No 02/06/2025 [facility] Utilities Answer Date Recorded In the past 12 months has th e [employer], gas, oil, or water company threatened to [...] drink first t geri in the morning (EYE-DAIRY HUSBANDMAN) to steady your nerves or to get [...] Description 03/15/2025 3:30 PM EST Clinical Support [facility] CC Hematology/BMT and Cellular Therapy Program [address] [place] [phone] 03/15/2025 4:00 PM EST Office Visit [facility] CC Hematology/BMT and Cellular Therapy Program [address] [place] [phone] Parth Fitzgerald MD 800 [place] [address] 03/28/2025 1:40 PM EST Office Visit [facility] [place] 800 [facility]. [address] [place] [phone] Duglas Greer MD 800 [place] [address] 07/18/2025 1:40 PM EDT Office Visit [facility] [address] [place] [phone] Diana Alonzo PA [address] [place] [address] documented as of this encounter Visit Diagnoses Not on filedocumented in this encounter Additional Health Concerns Infection Onset Date Last Indicated Resolved Time MRSA Comment:Added from external infection. Source: [facility]. 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 Source: [facility]. 11/26/2023 02/09/2025 MDRO 08/22/2024 08/22/2024 Rhinovirus 01/17/2025 02/10/2025 Assessment Noted Time PHQ-9 Depression Total Score: 0 09/01/19 12:42 PM EDT A fall risk assessment has been complete d for the patient 09/27/2024 2:07 PM EDT A Body Mass Index follow-up plan has been documented for the patient 02/13/2025 1:18 PM EST documented as of this encounter Care Teams Certified Optician Relationship Specialty Start Date End Date Favian Sandy DO [address] [place] [facility] [address] [place] [address] PCP - General 07/05/24 Navya Man MD [address] [address] Consulting Physician Hematology 09/28/24 Annette Gomes, RN None None Registered Nurse 01/18/25 02/27/25 documented as of this encounter
--- OUTSIDE RECORDS SUMMARY | 2025-02-28 18:26 | XMS_ITS | Encounter Summary ---
Author Organization [facility] Address [address] [place] [address] Care Team Providers Care Corporate Relations Director Name Role Phone DuFavian matamoros Primary Care Provider [phone] Navya Man MD Unavailable Camilla Guerrier RN Unavailable Unavailable Annette Gomes RN Unavailable Unavailable Reason for Visit * Reason Onset Date Comments Treatment 01/15/[address] art date 01/12/25. Labs at /[facility]. Encounter Details Date Type Department Care Team (Late st Contact Info) Description 01/15/2025 Telephone [facility] [address], [address] [place] [address] Diana Alonzo, PA [address] [place] [address] Treatment (HCV Treatment start date 01/12/25. Labs at [facility].) Social History Tobacco Use Types Packs/Day [...] in the past 12 m [facility], were you homeless or living in a [place] health care facility (including now)? No 02/06/2025 [facility] Utilities Answer Date Recorded In the past [...] drink first t geri in the morning (EYE-BLEMISH REMOVER) to steady your nerves or to get [...] on 01/17. TW2 labs on 01/25 at [facility]. * Telephone Encounter - Gillian Childs - 01/15/2025 12:33 PM EST HCV Treatment start date 01/12/25. Labs at /[facility]. Pt will be at around TW2 so will have labs drawn at [facility]. Will depending on appointments near SV[facility]12 to determine where to have them sent. documented in this encounter Plan of Treatment Upcoming Encounters Date Type Department Care Team (Late st Contact Info) Description 03/15/2025 3:30 PM EST Clinical Support [facility] Hematology/BMT and Cellular Therapy Program [address] [place] [address] 03/15/2025 4:00 PM EST Office Visit [facility] CC Hematology/BMT and Cellular Therapy Program 750 [facility], [address] [place] [address] [place] [address] Parth Fitzgerald MD 800 [place] [address] 03/28/2025 1:40 PM EST Office Visit [facility] [place] Braydon [address] [place] [address] Duglas Greer MD [address] [place] [address] 07/18/2025 1:40 PM EDT [facility] [address], [address] [place] [address] Diana Alonzo, PA [address] [place] [address] documented as of this encounter [...] documented as of this encounter Care Teams Corporate Relations Director Relationship Specialty Start Date End Date Favian Sandy DO [address] [place] [address] [place] [address] PCP - General 07/05/24 Navya Man MD [address] [address] Consulting Physician Hematology 09/28/24 Camilla Guerrier, RN VALUE-BASED TRANSFORMATION PROGRAM [place], [place] Applications Development Consultant 01/08/25 01/18/25 Annette Gomes RN None None Registered Nurse 01/18/25 02/27/25 documented as of this encounter
--- OUTSIDE RECORDS SUMMARY | 2025-02-28 18:26 | XMS_ITS | Encounter Summary ---
Author Organization [facility] Address [address] [place] [address] Care Team Providers Care Key Punch Teacher Name Role Phone DuFavian matamoros Wilfrido DO Primary Care Provider [phone] Navya Man MD Unavailable Annette Gomes RN Unavailable Unavailable Encounter Details Date Type Department Care Team (Late st Contact Info) Description 02/21/2025 Orders Only [facility] CC Hematology/BMT and Cellular Therapy Program [address] [facility] [place] [address] Seema Atkinson MD 800 [facility] [address] [place] [address] Sickle cell disease with crisis and other [...] living in a snf (including now)? No 02/06/2025 [facility] Utilities Answer Date Recorded In the past 12 months has th e [employer], [employer], oil, or water [employer] threatened to shut off services in your [...] drink first t geri in the morning (EYE-PLASTIC FABRICATOR) to steady your nerves or to [...] Upcoming Encounters Date Type Department Care Team ([facility] st Contact Info) Description 03/15/2025 3:30 PM EST Clinical Support [facility] Hematology/BMT and Cellular Therapy Program [address] [place] [phone] 03/15/2025 4:00 PM EST Office Visit [facility] Hematology/BMT and Cellular Therapy Program [address] [place] [phone] Parth Fitzgerald MD [address] [place] [address] 03/28/2025 1:40 PM EST Office Visit [facility] [place] [address] [place] [phone] Duglas Greer MD [address] [place] [phone] 07/18/2025 1:40 PM EDT Office Visit [facility] Medicine Specialties [address], [address] [place] [address] Diana Alonzo, JAMAL [address] [place] [address] documented as of this encounter Results * Type and screen (02/22/2025 1:01 PM EST) Pathologist [facility] ABO/Rh O Positive 02/22/2025 1:36 PM EST [...] ORDERABLES F inal Result Performing Organization Address City/State/[facility] Co de Phone Number BLOOD BANK [address] * (ABNORMAL) CBC and Differential (02/22/2025 1:01 PM EST) WBC Count 12.02(H) 3.70 - 10.30 10*3/uL LAB HEMATOLOGY METHOD 02/22/2025 1:37 PM EST [facility] RBC Count 3.11(L) 4.60 - 6.10 10*6/uL LAB HEMATOLOGY METHOD 02/22/2025 1:37 PM EST [facility] HGB 9.0(L) 13.7 - 17.5 g/dL LAB HEMATOLOGY METHOD 02/22/2025 1:37 PM EST [facility] HCT 27.1(L) 40.0 - 51.0 % LAB HEMATOLOGY METHOD 02/22/2025 1:37 PM EST [facility] Platelet Count 474(H) 155 - 369 10*3/uL LAB HEMATOLOGY METHOD 02/22/2025 1:37 PM EST [facility] LAB MCV 87 79 - 98 fL LAB HEMATOLOGY METHOD 02/22/2025 1:37 PM EST [facility] LAB MCH 28.9 26.0 - 32.0 pg LAB HEMATOLOGY METHOD 02/22/2025 1:37 PM EST [facility] LAB MCHC 33.2 30.7 - 35.5 g/dL LAB HEMATOLOGY METHOD 02/22/2025 1:37 PM EST [facility] RDW 18.3(H) 11.5 - 14.5 % LAB HEMATOLOGY METHOD 02/22/2025 1:37 PM EST [facility] MPV 8.5(L) 8.8 - 12.5 fL LAB HEMATOLOGY METHOD 02/22/2025 1:37 PM EST [facility] nRBC 0.3(H) <=0.0 per 100 WBCs LAB HEMATOLOGY METHOD 02/22/2025 1:37 PM [facility] Differential Type Automated LAB HEMATOLOGY METHOD 02/22/2025 1:37 PM EST [facility] Neutrophils % 68 % LAB HEMATOLOGY METHOD 02/22/2025 1:37 PM EST [facility] Lymphocytes % 20 % LAB HEMATOLOGY METHOD 02/22/2025 1:37 PM EST [facility] Monocytes % 10 % LAB HEMATOLOGY METHOD 02/22/2025 1:37 PM EST [facility] Eosinophils % 1 % LAB HEMATOLOGY METHOD 02/22/2025 1:37 PM [facility] Basophils % 1 % LAB HEMATOLOGY METHOD 02/22/2025 1:37 PM [facility] Immature Granulocytes % 0 % LAB HEMATOLOGY METHOD 02/22/2025 1:37 PM EST [facility] Neutrophils Absolute 8.15(H) 1.60 - 6.10 10*3/uL LAB HEMATOLOGY METHOD 02/22/2025 1:37 PM EST [facility] Lymphocytes Absolute 2.35 1.20 - 3.90 10*3/uL LAB HEMATOLOGY METHOD 02/22/2025 1:37 PM EST [facility] Monocytes Absolute 1.19(H) 0.30 - 0.90 10*3/uL LAB HEMATOLOGY METHOD 02/22/2025 1:37 PM EST [facility] Eosinophils Absolute 0.12 0.00 - 0.50 10*3/uL LAB HEMATOLOGY METHOD 02/22/2025 1:37 PM EST [facility] Basophils Absolute 0.17(H) 0.00 - 0.10 10*3/uL LAB HEMATOLOGY METHOD 02/22/2025 1:37 PM EST [facility] Immature Granulocytes Absolute 0.04 0.00 [...] MD LAB BLOOD ORDERABLES Final Resul t [facility] [address] [place] [address] documented in this encounter Visit Diagnoses Diagnosis [...] documented as of this encounter Care Teams Key Punch Teacher Relationship Specialty Start Date End Date Favian Sandy DO [address] [place] [address] [place] [address] PCP - General 07/05/24 Navya Man MD [address] [place] [address] Consulting Physician Hematology 09/28/24 Annette Gomes, RN None None Registered Nurse 01/18/25 02/27/25 documented as of this encounter
--- OUTSIDE RECORDS SUMMARY | 2025-02-28 18:26 | XMS_ITS | Encounter Summary ---
Author Organization Healthcare Address [address] [place] [address] Care Team Providers Care Cosmetic Sales Advisor Name Role Phone DuFavian Wilfrido SIU Primary Care Provider [phone] Navya Man MD Unavailable Camilla Guerrier RN Unavailable Unavailable Encounter Details Date Type Department Care Team (Late st Contact Info) Description 01/10/2025 Orders Only [facility] Medicine Specialties [address], [address] [place] [address] Diana Alonzo PA [address] [place] [address] Chronic hepatitis C without hepatic [...] any time in the past 12 m [facility], were you homeless or living in a long-term (including now)? No 01/08/2025 [facility] Utilities Answer Date Recorded In the past [...] drink first t geri in the morning (EYE-STAND IN) to steady your nerves or to get [...] Upcoming Encounters Date Type Department Care Team ([facility] [address] Contact Info) Description 03/15/2025 3:30 PM EST Clinical Support [facility] Hematology/BMT and Cellular Therapy Program [address] [place] [phone] 03/15/2025 4:00 PM EST Office Visit [facility] Hematology/BMT and Cellular Therapy Program [address] [place] [phone] Parth Fitzgerald MD [address] [place] [address] 03/28/2025 1:40 PM EST Office Visit [facility] [place] [address] [place] [phone] Duglas Greer MD [address] [place] [phone] 07/18/2025 1:40 PM EDT Office Visit [facility] [address], [address] [place] [phone] Diana Alonzo, PA [address] [place] [address] documented as of this encounter Visit Diagnoses [...] documented as of this encounter Care Teams Cosmetic Sales Advisor Relationship Specialty Start Date End Date Favian Sandy DO [address] [facility] [address] [place] [address] PCP - General 07/05/24 Navya Man MD [address] [place] [address] Consulting Physician Hematology 09/28/24 Camilla Guerrier, RN VALUE-BASED TRANSFORMATION PROGRAM [place] Director Of Operations For Therapy 01/08/25 01/18/25 documented as of this encounter
--- OUTSIDE RECORDS SUMMARY | 2025-02-28 18:26 | XMS_ITS | Encounter Summary ---
Author Organization [facility] Address [address] [place] [address] Care Team Providers Care Concierge Name Role Phone Favian Sandy Primary Care Provider [phone] Navya Man MD Unavailable Camilla Guerrier RN Unavailable Unavailable Reason for Visit * Reason Comments TCM Encounter Details Date Type Department Care Team (Late st Contact Info) Description 01/08/2025 Patient Outreach [facility] [address], [address] [place] [address] Camilla Guerrier, NASEEM VALUE-BASED TRANSFORMATION PROGRAM [place], [place] TCM Social History Tobacco Use Types [...] any time in the past 12 m [facility], were you homeless or living in a snf (including now)? No 01/08/2025 [facility] Utilities Answer Date Recorded In the [...] drink first t geri in the morning (EYE-CARE COORDINATION MANAGER) to steady your nerves or to [...] Assessment Author Is the patient eligible? Yes 01/08/2025 2:55 PM Camilla Clark RN Call Start Time [id number] 01/08/2025 2:55 PM Camilla Izquierdo RN * Medications Question Answer Date of Assessment Author Medications reviewed with patient/caregiver? Yes 01/08/2025 2:55 PM Camilla Clark RN Is the patient having any side effects they believe may be caused by any medication additions or changes? Yes 01/08/2025 2:55 PM Camilla Clark RN Does the patient have all medications ordered at discharge? Yes 01/08/2025 2:55 PM Camilla Clark RN Nursing Interventions Nurse advised patient to call provider 01/08/2025 2:55 PM Camilla Clark RN Is the patient taking all medications as directed (includes completed medication regime)? No 01/08/2025 2:55 PM Camilla Clark RN What is preventing the patient from taking all medications as directed? Side effects 01/08/2025 2:55 PM Laisha Clark RN Nursing Interventions Advised patient to call provider 01/08/2025 2:55 PM Camilla Clark RN * Appointments Question Answer Date of Assessment Author Does the patient have a primary care provider? Yes 01/08/2025 2:55 PM Camilla Clark RN Nursing Interventions Advised patient to make appointment 01/08/2025 2:55 PM Camilla Clark RN * Patient Teaching Question Answer Date of Assessment Author Did the patient receive a copy of their discharge instructions? Yes 01/08/2025 2:55 PM Camilla Clark RN Nursing Interventions Reviewed instructi ons with patient 01/08/2025 2:55 PM Camilla Clark RN What is the patient's perception of their health status since discharge? Worsening 01/08/2025 2:55 PM Camilla Clark RN Is the patient/caregiver able to teach back signs and symptoms related to disease process for when to call PCP? Yes 01/08/2025 2:55 PM Camilla Clark RN Is the patient/caregiver able to teach back signs and symptoms related to disease process for when to call 911? Yes 01/08/2025 2:55 PM Camilla Clark RN Is the patient/caregiver able to teach back the hierarchy of who to call/visit for symptoms/problems? PCP, Specialist, Home Health nurse, Urgent Care, ED, 911 Yes 01/08/2025 2:55 PM Camilla Clark RN * Wrap Up Question Answer Date of Assessment Author Call End Time [id number] 01/08/2025 2:55 PM Camilla Gallagher RN documented as of this encounter Mental Status * Food Insecurity Concern Calculation Answer Entry Date Author 1 01/08/2025 2:57 PM Camilla Clark RN * Transportation Needs Concern Calculation Answer Entry Date Author 1 01/08/2025 2:57 PM Camilla Clark RN * Housing Stability Concern Calculation Answer Entry Date Author 1 01/08/2025 2:57 PM Camilla Clark RN * Utilities Concern Calculation Answer Entry Date Author 1 01/08/2025 2:57 PM Camilla Clark RN documented in this encounter Miscellaneous Notes [...] 600 MG tablet x SANTOS[facility] appointment: Non PCP Favian Sandy D.O. recommend PCP in [...] 01/14/2025 11:30 AM Bravo Vyas MD [id number] [place] 01/24/2025 11:00 AM IR-9 INTER[facility] 01/25/2025 3:30 PM MAITE Peterson 01/25/2025 4:00 PM Parth Fitzgerald MD MHPCHWHTNY [facility] [place] documented in this encounter Plan of Treatment Upcoming Encounters Date Type Department Care Team ([facility] st Contact Info) Description 03/15/2025 3:30 PM EST Clinical Support [facility] Hematology/BMT and Cellular Therapy Program [address] [place] [address] 03/15/2025 4:00 PM EST Office Visit [facility] Hematology/BMT and Cellular Therapy Program [address] [place] [phone] Parth Fitzgerald MD [address] [place], [place] [phone] 03/28/2025 1:40 PM EST Office Visit [facility] [place] [address] [facility] [place] [phone] Duglas Greer MD [address] [place] [address] 07/18/2025 1:40 PM EDT Office Visit [facility] Medicine Specialties [address] [place] [address] Diana Alonzo PA [address] [place] [address] documented as of this encounter [...] documented as of this encounter Care Teams Concierge Relationship Specialty Start Date End Date Favian Sandy DO [address] [place] [address] PCP - General 07/05/24 Navya Man MD [address] [address] Consulting Physician Hematology 09/28/24 Camilla Guerrier, RN VALUE-BASED TRANSFORMATION PROGRAM [place], [place] Mirror Department Supervisor 01/08/25 01/18/25 documented as of this encounter
--- OUTSIDE RECORDS SUMMARY | 2025-02-28 18:27 | XMS_ITS | Encounter Summary ---
Author Organization Healthcare Address [address] [place] [address] Care Team Providers Care Latcher Name Role Phone DuFavian Wilfrido SIU Primary Care Provider Navya Man MD Unavailable Annette Gomes RN [...] in a penitentiary (including now)? No 01/18/2025 [facility] Utilities Answer Date Recorded In the past 12 months has e [employer], gas, oil, or water company threatened to [...] drink first t geri in the morning (EYE-TRANSFUSION NURSE) to steady your nerves or to get [...] Upcoming Encounters Date Type Department Care Team ([facility] st Contact Info) Description 03/15/2025 3:30 PM EST Clinical Support [facility] CC Hematology/BMT and Cellular Therapy Program [address] [place] [phone] 03/15/2025 4:00 PM EST Office Visit [facility] CC Hematology/BMT and Cellular Therapy Program [address] [place] [phone] Parth Fitzgerald MD [address] [place] [address] 03/28/2025 1:40 PM EST Office Visit [facility] [place] [address] [place] [phone] Duglas Greer MD [address] [place] [address] 07/18/2025 1:40 PM EDT Office Visit [facility] Medicine Specialties [address] [place] [phone] Diana Alonzo PA [address] [place] [address] documented as of this encounter Visit Diagnoses Not on filedocumented in this encounter Additional Health Concerns Infection Onset Date Last Indicated Resolved Time MRSA Comment:Added from external infection. [facility] 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 Source: [facility]. 11/26/2023 02/09/2025 MDRO 08/22/2024 08/22/2024 Rhinovirus 01/17/2025 02/10/2025 Assessment Noted Time PHQ-9 Depression Total Score: 0 09/01/19 12:42 PM EDT A fall risk assessment has been complete d for the patient 09/27/2024 2:07 PM EDT A Body Mass Index follow-up plan has been documented for the patient 01/30/2025 5:06 PM EST documented as of this encounter Care Teams Latcher Relationship Specialty Start Date End Date Favian Sandy DO [address] [place] [facility] [address] [place] [address] PCP - General 07/05/24 Navya Man MD [address] [address] Consulting Physician Hematology 09/28/24 Annette Gomes, RN None None Registered Nurse 01/18/25 02/27/25 documented as of this encounter
--- OUTSIDE RECORDS SUMMARY | 2025-02-28 18:27 | XMS_ITS | Encounter Summary ---
Author Organization Healthcare Address [address] [place] [address] Care Team Providers Care Ip Litigation Paralegal Name Role Phone DuFavian Wilfrido SIU Primary Care Provider [phone] Navya Man MD Unavailable Annette Gomes RN [...] in the past [address] [facility], were you homeless or living in a custodial (including now)? 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 No 01/21/2025 1:44 AM EST Mycha rt, Generic documented as of this encounter Mental Status * Travel Screening Question Answer Entry Date Author Have you traveled internatio april or domestically in the last month? No 01/21/2025 1:44 AM EST Mycha rt, Generic documented in this encounter Plan of Treatment Upcoming Encounters Date Type Department Care Team (Late st Contact Info) Description 03/15/2025 3:30 PM EST Clinical Support [facility] Hematology/BMT and Cellular Therapy Program [address] [place] [phone] 03/15/2025 4:00 PM EST Office Visit [facility] Hematology/BMT and Cellular Therapy Program [address] [place] [phone] Parth Fitzgerald MD [address] [place] [address] 03/28/2025 1:40 PM EST Office Visit [facility] [place] [address] [facility]. [address] [place] [phone] Duglas Greer MD [address] [place] [address] 07/18/2025 1:40 PM EDT Office Visit [facility] Medicine Specialties [address], [address] [place] [phone] Diana Alonzo, JAMAL [address] [facility] [address] [place] [phone] documented as of this encounter Visit Diagnoses Not on filedocumented in this encounter Additional Health Concerns Infection Onset Date Last Indicated Resolved Time MRSA Comment:Added from external infection. Source: [facility]. 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 Source: [facility]. 11/26/2023 02/09/2025 MDRO 08/22/2024 08/22/2024 Rhinovirus 01/17/2025 02/10/2025 Assessment Noted Time PHQ-9 Depression Total Score: 0 09/01/19 12:42 PM EDT A fall risk assessment has been complete d for the patient 09/27/2024 2:07 PM EDT A Body Mass Index follow-up plan has been documented for the patient 01/30/2025 5:06 PM EST documented as of this encounter Care Teams Ip Litigation Paralegal Relationship Specialty Start Date End Date Favian Sandy DO [address] [place] [address] [place] [address] PCP - General 07/05/24 Navya Man MD [address] [place] [address] Consulting Physician Hematology 09/28/24 Annette Gomes, RN None None Registered Nurse 01/18/25 02/27/25 documented as of this encounter
--- OUTSIDE RECORDS SUMMARY | 2025-02-28 18:27 | XMS_ITS | Encounter Summary ---
Author Organization [facility] Address [address] [place] [address] Care Team Providers Care Plant Pathology Teacher Name Role Phone DuFavian Wilfrido SIU Primary Care Provider [phone] Navya Man MD Unavailable Annette Gomes RN [...] any time in the past 12 m [facility], were you homeless or living in a care home (including now)? 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) to steady your nerves or to get [...] Upcoming Encounters Date Type Department Care Team ([facility] st Contact Info) Description 03/15/2025 3:30 PM EST Clinical Support [facility] CC Hematology/BMT and Cellular Therapy Program [address] [place] [phone] 03/15/2025 4:00 PM EST Office Visit [facility] CC Hematology/BMT and Cellular Therapy Program [address] [place] [phone] Parth Fitzgerald MD [address] [place] [address] 03/28/2025 1:40 PM EST Office Visit [facility] [place] 800 [facility]. [address] [place] [phone] Duglas Greer MD [address] [place] [address] 07/18/2025 1:40 PM EDT Office Visit [facility] Medicine Specialties [address] [place] [phone] Diana Alonzo PA [address] [place] [address] documented as of this encounter Visit Diagnoses Not on filedocumented in this encounter Additional Health Concerns Infection Onset Date Last Indicated Resolved Time MRSA Comment:Added from external infection. Source: [facility]. 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 Source: [facility]. 11/26/2023 02/09/2025 MDRO 08/22/2024 08/22/2024 [...] as of this encounter Care Teams Plant Pathology Teacher Relationship Specialty Start Date End Date Favian Sandy DO [address] [place] [address] [place] [address] PCP - General 07/05/24 Navya Man MD [address] [phone] Consulting Physician Hematology 09/28/24 Annette Gomes, RN None None Registered Nurse 01/18/25 02/27/25 documented as of this encounter
--- OUTSIDE RECORDS SUMMARY | 2025-02-28 18:27 | XMS_ITS | Encounter Summary ---
Author Organization Healthcare Address [address] [place] [address] Care Team Providers Care Complaint Specialist Name Role Phone DuFavian Wilfrido SIU Primary Care Provider [phone] Navya Man MD Unavailable Annette Gomes RN [...] any time in the past 12 m [facility], were you homeless or living in a usp (including now)? 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. [address] [place] [phone] Duglas Greer MD [address] [place] [address] 07/18/2025 1:40 PM EDT Office Visit [facility] Medicine Specialties [address] [place] [phone] Diana Alonzo PA [address] [place] [address] documented as of this encounter Visit Diagnoses Not on filedocumented in this encounter Additional Health Concerns Infection Onset Date Last Indicated Resolved Time MRSA Comment:Added from external infection. Source: [facility]. 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 Source: [facility]. 11/26/2023 02/09/2025 MDRO 08/22/2024 08/22/2024 [...] documented as of this encounter Care Teams Complaint Specialist Relationship Specialty Start Date End Date Favian Sandy DO [address] [place] [address] PCP - General 07/05/24 Navya Man MD [address] [phone] Consulting Physician Hematology 09/28/24 Annette Gomes, RN None None Registered Nurse 01/18/25 02/27/25 documented as of this encounter
[2025-02-28 18:31] VITALS: PULSE 98; O2SAT 99
[2025-02-28] MEDS: HYDROMORPHONE 2MG/ML SYRINGE 2 MG IV (18:33)
[2025-02-28 18:34] LABS: Hematocrit 24.6 % (42.0-52.0); Hemoglobin 8.3 g/dL (14.1-18.0); Immature Granulocytes % 0.3 %; Mean Corpuscular HGB Conc 33.7 g/dL (31.8-35.4); Mean Corpuscular Hemoglobin 29.7 pg (27.0-31.2); Mean Corpuscular Volume 88.2 fl (80-94); Nucleated Red Blood Cells % 0.4 %; Platelet Count 502 K/mm3 (142-424); Red Blood Count 2.79 M/mm3 (4.60-6.20); Red Cell Distribution Width-SD 55.9 fL; Reticulocyte % (Auto) 10.5 % (0.9-3.2); White Blood Count 14.4 K/mm3 (4.8-10.8)
--- NOTE | 2025-02-28 18:36 | PC.NURSE ---
Called for a patient transfer. Images have been powershared. They will call back.
[2025-02-28 18:40] LABS: Alanine Aminotransferase 35 U/L (12-78); Albumin Level 4.4 g/dl (3.5-5.0); Albumin/Globulin Ratio 0.9 (1.1-1.8); Alkaline Phosphatase 81 U/L (38-126); Anion Gap 14.0 mEq/L (5-15); Aspartate Amino Transferase 56 U/L (17-59); Bilirubin,Total 3.3 mg/dl (0.2-1.3); Blood Urea Nitrogen 11 mg/dl (9-20); Calcium 8.6 mg/dl (8.4-10.2); Carbon Dioxide 23 mmol/L (22.0-30.0); Chloride 105 mmol/L (98-107); Creatinine Clearance Estimated 120 mL/min (50-200); Creatinine,Serum 1.10 mg/dl (0.66-1.25); Estimated Glomerular Filt Rate 79 ml/min (>60); GFR (African American) 95 ML/MIN (>60); Globulin 5.1 g/dL (1.3-3.2); Glucose 100 mg/dl (74-100); Potassium 4.0 mmoL/L (3.5-5.1); Sodium 138 mmol/L (136-145); Total Protein,Serum 9.5 g/dl (6.3-8.2)
[2025-02-28 18:45] VITALS: PULSE 97; O2SAT 100
[2025-02-28 18:52] LABS: Troponin I 0.02 ng/ml (0.00-0.034)
--- NOTE | 2025-02-28 19:11 | HMH.EDGENADL ---
Discharge Plan Disposition Patient Disposition: Xfer Other Condition: Fair Prescriptions Prescriptions: No Action hydroxyurea 500 mg capsule 500 mg PO DAILY Eliquis 5 mg tablet 5 mg PO DAILY oxycodone 20 mg tablet 30 mg PO Q6H Referrals Follow up/Referrals: Favian Sandy DO [Primary Care Provider, [facility]] - See instructions Clinical Impressions Clinical Impression: Bacteremia, S/P PICC central line placement, Sickle cell anemia with pain Stand Alone Forms Stand Alone Forms: Transfer Record - ED Print Language Print Language: Polish Discharge ED Provider: Michoacano Ochoa General Adult HPI General Chief complaint: PAIN Stated complaint: seen 02/25/25 recheck for blood culture results Time Seen by Provider: 02/28/25 18:07 Mode of Arrival: Ambulatory Source of Information: Patient Description of Symptoms (Recalled from ER Triage Doc. by RN): patient states he was here 2 nights ago and was called for positive blood cultures. last dose of oxycodone 30mg ER was at 12 History of Present Illness HPI narrative: This is a 29-year-old male patient, with past medical history of sickle cell anemia, who is presenting to the emergency department today for evaluation of positive blood cultures. The patient had presented to our emergency department on 25 February with fevers and chills. He has a an extensive history of bacteremia including history of stenotrophomonas as well as multiple ESBL infections. His most recent episode of bacteremia was earlier this month diagnosed at our hospital on February 05. He was ultimately transferred to the [facility] where he was treated with daptomycin and ertapenem. He was ultimately able to be discharged home with a tunneled line in his chest on a 4-week course of Bactrim. On the when he Chris presented to our hospital with fevers and chills we did obtain blood cultures and strongly recommended admission to the patient but he left AGAINST MEDICAL ADVICE. His blood cultures ended up resulting positive for Staphylococcus epidermidis, Klebsiella, and Enterobacter. We have been tried to contact the patient for the last 3 days and have been unable to contact him, and today he finally received our messages and return to the hospital. He tells me that he is having chest pain, generalized bodyaches and pains consistent with prior sickle cell crises, as well as fevers at home and chills. Related Data Home Medications ?Medication ?Instructions ?Recorded ?Confirmed apixaban 5 mg tablet (Eliquis) 5 mg PO DAILY 04/25/24 02/26/25 hydroxyurea 500 mg capsule 500 mg PO DAILY 04/25/24 02/26/25 oxycodone 20 mg tablet 30 mg PO Q6H 07/05/24 02/26/25 Allergies Allergy/AdvReac Type Severity Reaction Status Date / Time morphine Allergy Unknown Verified 02/26/25 10:06 allergy reaction [facility] Disclaimer: The information contained in this section may have been updated after the patient was seen, as this information can be updated by other users. Medical History Sickle cell anemia Social History Smoking Status: Never smoker alcohol intake: never current occupational status: unemployed and disabled Travel in the last 8 weeks?: None Have you lived/traveled outside [place] in past 30 days?: No Contact w/someone who lives/traveled outside US past 30 days?: No Exposure to someone with infectious disease in past 14 days?: No Do you have a fever (greater than 100.4 F or 38 C)?: No Have you tested positive for COVID-19?: No Exposed to someone with COVID-19 in past 14 days?: No Do you have a sore throat?: No Do you have a cough?: No Do you have any weakness?: No Do you have any diarrhea?: No Are you experiencing any unusual bleeding?: No Do you have any muscle aches/pain?: No Do you have any abdominal pain?: No Are you experiencing loss of taste or smell?: No ROS Obtained: Yes Systems reviewed as appropriate & no additional complaints except as documented Physical Exam General General appearance: other (See MDM) Respiratory Respiratory exam: Present other (See MDM) Cardiovascular Cardiovascular exam: Present other (See MDM) Neurological Exam Neurological exam: Present other (See MDM) Medical Decision Making Medical Records Medical records reviewed: Yes I reviewed the patient's medical records. Screening: Per USPSTF and CDC recommendations, given the prevalence of disease in our region, it is our hospital?s policy to screen for HIV and viral Hepatitis for all patients aged 18 and over and those with ongoing risk factors. Mir Inquiry Pt receiving controlled substance: No Mir was queried for this patient: No Vital Signs: 02/28/25 18:07 02/28/25 18:08 02/28/25 18:31 Temperature 98.1 F Temperature Source Oral Pulse Rate 108 H 98 H Pulse Rate [Right Radial] 105 H Respiratory Rate 16 Blood Pressure 134/86 Blood Pressure [Right Arm] 134/86 Blood Pressure Mean [Right Arm] 102 Blood Pressure Source [Right Arm] Automatic Cuff Blood Pressure Position [Right Arm] Sitting 02 Sat by Pulse Oximetry 100 98 99 Oxygen Delivery Method Room Air 02/28/25 18:45 Temperature Temperature Source Pulse Rate 97 H Pulse Rate [Right Radial] Respiratory Rate Blood Pressure Blood Pressure [Right Arm] Blood Pressure Mean [Right Arm] Blood Pressure Source [Right Arm] Blood Pressure Position [Right Arm] 02 Sat by Pulse Oximetry 100 Oxygen Delivery Method Lab Data Lab Results 02/28/25 18:22: WBC 14.4 H, RBC 2.79 L, Hgb 8.3 L, Hct 24.6 L, MCV 88.2, MCH 29.7, MCHC 33.7, RDW 17.7 H, Plt Count 502 H, MPV 8.5, Neut % (Auto) 62.0, Lymph % (Auto) 25.1, [place] % (Auto) 10.1 H, Eos % (Auto) 1.3, Baso % (Auto) 1.2, Neut # (Auto) 8.9 H, Lymph # (Auto) 3.6, [place] # (Auto) 1.5 H, Eos # (Auto) 0.2, Baso # (Auto) 0.2, Retic Count (auto) 10.5 H, Sodium 138, Potassium 4.0, Chloride 105, Carbon Dioxide 23, Anion Gap 14.0, BUN 11, Creatinine 1.10 D, Estimated Creat Clear 120, Estimated GFR 79, Est GFR ( Amer) 95 D, Glucose 100, Lactate 0.7, Calcium 8.6, Total Bilirubin 3.3 H, AST 56, ALT 35 D, Alkaline Phosphatase 81, Troponin I 0.02, Total Protein 9.5 H, Albumin 4.4, Globulin 5.1 H, Albumin/Globulin Ratio 0.9 L 02/28/25 18:22 02/28/25 18:22 Orders (Tests/Meds): ED MEDICATIONS Discontinued Medications Generic Name Dose Route Start Last Admin Trade Name Freq PRN Reason Stop Dose Admin Diphenhydramine HCl 50 mg 12/25/25 18:22 02/28/25 18:33 Diphenhydramine 50mg/Ml Vial IV 02/28/25 18:23 50 mg ONCE ONE Administration Hydromorphone HCl 2 mg 02/28/25 18:22 02/28/25 18:33 Hydromorphone 2mg/Ml Syringe IV 02/28/25 18:23 2 mg ONCE ONE Administration Ertapenem 1 gm/ Sodium 50 mls @ 100 mls/hr 02/28/25 18:30 Chloride IV 02/28/25 18:59 ONCE ONE ORDERS Category Date Time Status CXR 2 view (NOT portable) [XR chest 2V] Stat Exams 02/28/25 18:21 Taken CBC w/Auto Diff [Complete Blood Count Auto Diff] Stat Lab 02/28/25 18:22 Completed CMP [Comprehensive Metabolic Panel] Stat Lab 02/28/25 18:22 Completed HIV Combo Stat Lab 02/28/25 18:20 Received Hepatitis C Ab Qual. W/ RFX Stat Lab 02/28/25 18:20 Received Lactic Acid Stat Lab 02/28/25 18:22 Completed Reticulocyte % (Auto) Stat Lab 02/28/25 18:22 Completed Troponin I Q3H Lab 02/28/25 21:30 Ordered Troponin I Q3H Lab 03/01/25 00:30 Ordered Troponin I Stat Lab 02/28/25 18:22 Completed Blood Culture Stat Micro 02/28/25 18:42 Received Medical Decision Narrative: In summary, this is a 29-year-old male patient who is presenting to the emergency department today for evaluation of positive blood cultures. He has an extensive history of bacteremia and an indwelling tunneled line in his right anterior chest wall through which he is currently receiving a 4-week course of Bactrim for recent bacteremia consisting of stenotrophomonas, Staphylococcus kloosi and Streptococcus gordonii. The patient does have a history of acute chest syndrome as well. The patient currently has positive blood cultures from 02/25/2025 that are positive for Enterobacter, Klebsiella, and Staphylococcus epidermidis. On initial evaluation of the patient he appears very uncomfortable. He also appears to be having chills. He is tachycardic and normotensive. He is afebrile at this time. His lungs are clear to auscultation bilaterally. He has no lower extremity pitting edema or erythema. His abdomen is not peritonitic. There is no purulence from the line in his right anterior chest wall, however he does have a rash surrounding this line site. He states that this is intensely pruritic. Differential diagnosis includes bacteremia, CLABSI, acute chest syndrome, ACS/AK, among other Workup was initiated with hematologic labs which were personally interpreted by me and demonstrated leukocytosis of 14.4, stable anemia with a hemoglobin of 8.3 and hematocrit of 24.6. Reticulocyte count is elevated at 10.5 indicating adequate bone marrow response. He has no evidence of electrolyte derangement or acute kidney injury. His initial troponin is 0.02 which is unchanged from 3 days ago. His lactic acid is 0.7 Given that this patient has been managed by infectious disease and hematology at [facility] and has an indwelling line his right anterior chest wall placed by [facility] I do feel that he would benefit from transfer back to their facility for definitive management and care. Therefore I had an interactive discussion with the [facility] transfer center with Dr. Caceres, who graciously agreed to except the patient for transfer. Prior to transfer we treated the patient with 1 g of ertapenem. He was transferred by EMS in stable condition Critical Care Critical Care Time Critical Care Time: No
[2025-02-28] MEDS: ERTAPENEM SODIUM 1 GM in 0.9 % SODIUM CHLORIDE 50 ML IV (19:15)
[2025-02-28 20:04] VITALS: BP 137/80; PULSE 85; RESP 20; TEMP 37.2; O2SAT 99
[2025-02-28 22:32] LABS: Hepatitis C Ab Qual. W/ RFX REACTIVE (Negative)
[2025-03-01 07:25] LABS: Acinetobacter calcoaceticus-ba Not Detected; Bacteroides fragilis Not Detected; CTX-M Detected; Candida auris Not Detected; Candida glabrata Not Detected; Enterobacterales Detected; Enterococcus faecalis Not Detected; Enterococcus faecium Not Detected; IMP Not Detected; KPC Not Detected; Klebsiella aerogenes Not Detected; Klebsiella pneumoniae grp Detected; NDM Not Detected; OXA-48-like Not Detected; Proteus spp. Not Detected; Salmonella spp. Not Detected; Serratia marcescens Not Detected; Staphylococcus epidermidis Not Detected; Staphylococcus lugdunensis Not Detected; Staphylococcus spp. Not Detected; Stenotrophomonas maltophilia Not Detected; Streptococcus agalactiae(GrpB) Not Detected; Streptococcus pyogenes Group A Not Detected; Streptococcus spp. Not Detected; VIM Not Detected; mcr-1 Not Detected
[2025-03-01 08:27] LABS: Acinetobacter calcoaceticus-ba Not Detected; Bacteroides fragilis Not Detected; CTX-M Detected; Candida auris Not Detected; Candida glabrata Not Detected; Enterobacterales Detected; Enterococcus faecalis Not Detected; Enterococcus faecium Not Detected; IMP Not Detected; KPC Not Detected; Klebsiella aerogenes Not Detected; Klebsiella pneumoniae grp Detected; NDM Not Detected; OXA-48-like Not Detected; Proteus spp. Not Detected; Salmonella spp. Not Detected; Serratia marcescens Not Detected; Staphylococcus epidermidis Not Detected; Staphylococcus lugdunensis Not Detected; Staphylococcus spp. Not Detected; Stenotrophomonas maltophilia Not Detected; Streptococcus agalactiae(GrpB) Not Detected; Streptococcus pyogenes Group A Not Detected; Streptococcus spp. Not Detected; VIM Not Detected; mcr-1 Not Detected
--- NOTE | 2025-03-01 11:25 | PC.NURSE ---
Culture results faxed to Dr. Marino at . alex Liao in the lab
== END 2025-02-28 20:05 | disposition other institution (70) ==
PROVIDERS: Emergency Provider Student in an Organized Health Care Education/Training Program; PCP Internal Medicine
DX: B96.1 Klebsiella pneumoniae [K. pneumoniae] as the cause of diseases classified elsewhere (principal); D57.00 Hb-SS disease with crisis, unspecified; R78.81 Bacteremia; Z95.828 Presence of other vascular implants and grafts
CPT/HCPCS: 71046; 80053; 83605; 84484; 85025; 85044; 86803; 87040; 87077; 87154; 87389; 87522; 96365; 96375; 99285; J1171; J1200; J1335